=== PATIENT | female | born 1970 | race Caucasian/White ===

== ENCOUNTER 2023-12-24 20:43 | Inpatient (IN) | payer BC, SELFPAY ==
[2023-12-24 15:15] VITALS: BP 133/77
[2023-12-24 15:33] LABS: % Basophils 0.1 % (0-2); % Immature Granulocytes 2.1 % (0-0.5); % Lymphocytes 2.4 % (20.5-51.1); % Monocytes 2.8 % (1.7-9.3); % Neutrophils 92.6 % (42.2-75.2); Absolute Immature Granulocytes 0.5 10^3/uL (0-0.05); Absolute Lymphocytes 0.5 10^3/uL (1.2-3.4); Absolute Monocytes 0.6 10^3/uL (0.1-0.6); Absolute Neutrophils 19.6 10^3/uL (1.4-6.5); Hematocrit 34.6 % (37.0-47.0); Hemoglobin 11.5 g/dL (12.0-16.0); Mean Corp Hgb Conc. 33.2 g/dL (33.0-37.0); Mean Corpuscular Hgb 30.2 pg (27.0-31.0); Mean Corpuscular Volume 90.8 fL (81.0-99.0); Mean Platelet Volume 8.8 fL (7.4-10.4); Nucleated Red Blood Cells % 0 %; Platelet Count 290 10^3/uL (130-400); Red Blood Cell Count 3.81 10^6/uL (4.20-5.40); Red Cell Dist. Width 14.7 % (11.5-14.5); White Blood Cell Count 21.2 10^3/uL (4.8-10.8)
[2023-12-24 15:55] LABS: ALT (SGPT) 12 U/L (0-35); AST (SGOT) 13 U/L (14-36); Albumin 3.3 g/dl (3.5-5.0); Alkaline Phosphatase 118 U/L (38-126); Blood Urea Nitrogen 12 mg/dl (7-17); Calcium 9.2 mg/dl (8.4-10.2); Carbon Dioxide 31 mmol/L (22-30); Chloride 95 mmol/L (98-107); Glucose 123 mg/dl (70-99); Lipase < 10 U/L (23-300); Potassium 5.6 mmol/L (3.5-5.1); Sodium 134 mmol/L (135-145); Total Bilirubin 0.6 mg/dl (0.2-1.3); Total Protein 6.8 g/dl (6.3-8.2); eGFR > 60.00
[2023-12-24] MEDS: DILAUDID 0.5 MG IV ×3 (18:53→22:46)
[2023-12-24] MEDS: NSS 1000 IV ×2 (18:53→22:36)
[2023-12-24] MEDS: PROTONIX IV 40 MG IV (18:54)
[2023-12-24] MEDS: ZOFRAN 4 MG IV ×2 (18:54→22:47)
--- NOTE | 2023-12-24 19:12 | ED.GENMED ---
History of Present Illness
General
Chief Complaint: Abdominal Pain
Source: patient
Exam Limitations: none
Time Seen by Provider: 12/24/23 18:10
Nursing documentation reviewed up to this point in time: agreed with
Travel History
Have you had any contact with someone who has COVID-19?: No
Do you have any symptoms of coronavirus? Fever > 100 degrees, chills, cough, shortness of breath, sore throat, loss of taste or smell, muscle aches, or headache?: No
History of Present Illness
History of Present Illness:
Patient started on Augmentin 3 days ago for presumed recurrent diverticulitis by her GI physician, presents ED secondary to worsening pain over the past 24 hours, along with nausea and decreased appetite. Denies fever. Denies chills. Abdominal
pain described as sharp, left-sided, without any alleviating or exacerbating factors. Patient states that she has had number of similar symptoms in the past, and has been treated for diverticulitis with antibiotics. Of note, patient was discharged
from hospital in [place] 2 weeks ago, during which time she was treated for 'pulmonary infection'. Patient received both antibiotics and antifungal medication during hospitalization. Patient reports loose/mucousy bowel movement today.
Review of Systems
Review of Systems
Allergies reviewed?: Yes
All Other Systems: ROS reviewed and negative except as documented in HPI and ROS
Constitutional: Reports no symptoms; Denies fever
ABD/GI: Reports abdominal pain and nausea; Denies vomiting
Musculoskeletal: Reports no symptoms
Skin: Reports no symptoms
Neurological: Reports no symptoms
Phy Exam
Physical Exam
Physical Exam:
Physical Exam
General: mild painful distress, not acutely ill. afebrile
Head: nc/at. eomi
Neck: supple. no meningeal signs.
Heart: s1/s2 regular rate and rhythm, no murmur. equal radial pulses.
Lungs: no acute respiratory distress. clear bilaterally
Abdomen: normal bowel sounds. mild left sided tenderness, LUQ>LLQ, without rebound/guarding. no distention
Neuro: alert and oriented. no focal neurological deficits
Skin: no rash
Psychiatric: well kept. interactive and cooperative
Extremities: no edema. no calf tenderness.
Course
Orders/Labs/Results
Orders:
Orders
12/24/23 Dinner
NPO
Allow oral meds: Yes
Allow clear liquids: No
NPO with Ice Chips: No
12/24/23 15:27
CMP [Comprehensive Metabolic Panel] Urgent
Complete Blood Count/With Diff Urgent
Lipase Urgent
12/24/23 18:19
STOOL [C difficile Antigen & Toxins] Urgent
CLAIRE Source: Feces/Stool
Specimen Description:
Date Specimen was Collected: 12/24/23
Time Specimen was Collected: 18:28
Stool Culture Urgent
CLAIRE Source: Feces/Stool
Specimen Description:
Date Specimen was Collected: 12/24/23
Time Specimen was Collected: 18:28
12/24/23 18:20
0.9% Sodium Chloride 1000 ml [Nss] 1,000 ml IV BOLUS
HYDROmorphone [Dilaudid] 0.5 mg IV NOW STA
Ondansetron Injectable [Zofran] 4 mg IV NOW STA
Pantoprazole [Protonix IV] 40 mg IV NOW STA
12/24/23 18:21
CT Abd/pelvis W Iv Cont Urgent
Comment:
Reason For Exam: LLQ pain, recent abx tx
12/24/23 19:17
LevoFLOXacin 500 MG/100 ML [Levaquin] 500 mg in 100 ml IV NOW
12/24/23 19:18
MetroNIDAZOLE 500 MG/100 ML [Flagyl 500 mg] 100 ml IV NOW
12/24/23 19:24
HYDROmorphone [Dilaudid] 0.5 mg IV NOW STA
12/24/23 20:09
SURGICAL CONSULT Routine
Consulting Provider: Jose Rosenthal
Was physician already notified: Yes
Reason for consult: sigmoid diverticulitis with large abscess
12/24/23 20:10
Admit/Transfer Patient As Directed
Co-Sign Provider:
Level of Care: Inpatient admission
Assign to:: Medical/Surgical
Physician / Group: tracy newberry
Diagnosis: sigmoid diverticulitis with abcess, chronic aspergillus lung infection
Reason for Hospitalization: sigmoid diverticulitis with abcess, chronic aspergillus lung infection
Expected length of stay greater than two midnights?: Yes
ELOS- Estimated Length of Stay in days: 4
I certify the patient meets the requirements for IP care: Yes
Code Status As Directed
Resuscitation Status: Full Code
12/24/23 20:15
EKG [Electrocardiogram (*1)] Urgent
Reason for Study: QTc Monitoring
12/24/23 20:25
Consult Interventional Radiology [IRAD CONSULT] Routine
Consulting Provider: Reji Cabrera
Was physician already notified: Yes
Reason for Consult/Procedure: sig divertic abcsess large
Acknowledgement that appropriate orders are entered: Yes
12/24/23 21:08
0.9% Sodium Chloride 1000 ml [Nss] 1,000 ml IV 100 mls/hr
Albuterol [ProAIR HFA INHALER] 2 puff INH R Q4HPRN PRN
Benzonatate [Tessalon Perles] 100 mg PO TIDPRN PRN
HYDROmorphone [Dilaudid] 0.5 mg IV Q3HPRN PRN
HYDROmorphone [Dilaudid] 1 mg IV Q4HPRN PRN
Ondansetron Injectable [Zofran] 4 mg IV Q6HPRN PRN
12/24/23 21:08
Activity As Directed
Activity Level: As Tolerated
Intake/ Output As Directed
Frequency: Per unit guidelines
Vital Signs As Directed
Frequency: Per unit guidelines
Ot Eval And Treat Routine
Pt Eval And Treat Routine
Activity Level: As Tolerated
DX Deep Vein Thrombosis Video Routine
12/24/23 22:00
MetroNIDAZOLE 500 MG/100 ML [Flagyl 500 mg] 100 ml IV Q8H
Piperacillin/Tazo 3.375 Gram [Zosyn] 3.375 gram in 50 ml IV Q6H
Trazodone [Desyrel] 200 mg PO HS
Voriconazole [Vfend] 200 mg PO Q12H
12/25/23 06:00
EKG [Electrocardiogram (*1)] IN AM
Reason for Study: QTc Monitoring
Complete Blood Count/With Diff IN AM
Comprehensive Metabolic Panel IN AM
12/25/23 08:00
Aspirin Low Dose EC [Aspir Low (Enteric Coated)] 81 mg PO DAILY
Budesonide/Formoterol 160/4.5 [Symbicort 160/4.5 Mcg Inhaler] 2 puff INH R BID
Cholecalciferol (Vitamin D3) [VITAMIN D3 (cholecalciferol)] 25 mcg PO DAILY
Fluoxetine HCl [Prozac] 40 mg PO DAILY
Ipratropium/Albuterol Sulfate [Duoneb] 3 ml INH R TID
Pantoprazole [Protonix IV] 40 mg IV DAILY
Quetiapine Fumarate [Seroquel] 50 mg PO BID
12/25/23 18:00
Enoxaparin Sodium [Lovenox] 40 mg SC QPM
Montelukast Sodium [Singulair] 10 mg PO QPM
12/26/23 06:00
Complete Blood Count/With Diff IN AM
Comprehensive Metabolic Panel IN AM
12/27/23 06:00
Complete Blood Count/With Diff IN AM
Comprehensive Metabolic Panel IN AM
12/28/23 06:00
Complete Blood Count/With Diff IN AM
Comprehensive Metabolic Panel IN AM
Abnormal Lab Results
12/24/23
15:27
WBC 21.2 H 10^3/uL
(4.8-10.8)
RBC 3.81 L 10^6/uL
(4.20-5.40)
Hgb 11.5 L g/dL
(12.0-16.0)
Hct 34.6 L %
(37.0-47.0)
RDW 14.7 H %
(11.5-14.5)
Abs Immat Gran (auto) 0.5 H 10^3/uL
(0-0.05)
Absolute Neuts (auto) 19.6 H 10^3/uL
(1.4-6.5)
Absolute Lymphs (auto) 0.5 L 10^3/uL
(1.2-3.4)
Immature Gran % 2.1 H %
(0-0.5)
Neutrophils % 92.6 H %
(42.2-75.2)
Lymphocytes % 2.4 L %
(20.5-51.1)
Sodium 134 L mmol/L
(135-145)
Potassium 5.6 H mmol/L
(3.5-5.1)
Chloride 95 L mmol/L
(98-107)
Carbon Dioxide 31 H mmol/L
(22-30)
Creatinine 0.5 L mg/dL
(0.6-1.0)
Glucose 123 H mg/dl
(70-99)
AST 13 L U/L
(14-36)
Albumin 3.3 L g/dl
(3.5-5.0)
Lipase < 10 L U/L
(23-300)
12/24/23 15:27
12/24/23 15:27
Vital Signs
Initial and Last Documented VS:
Initial Vital Signs
Temp Pulse Resp BP Pulse Ox
98.6 F 79 16 133/77 100
12/24/23 15:15 12/24/23 15:15 12/24/23 15:15 12/24/23 15:15 12/24/23 15:15
Last Documented Vital Signs
Temp Pulse Resp BP Pulse Ox
97.9 F 60 18 140/68 98
12/24/23 21:17 12/24/23 21:17 12/24/23 21:17 12/24/23 21:17 12/24/23 21:17
MDM/Problems Addressed
MDM/Problems Addressed:
CT report reviewed.
Patient will be admitted for IV antibiotics.
Colorectal surgery, , notified via [facility] text.
*Critical Care Note
Total Time (30-74mins, 75-104mins- exclusive of procedures): Not Applicable
ED Attending Note
-
Portions of this chart may have been created with voice recognition software.� Occasional wrong word or��sound alike� substitutions may have occurred due to the inherent limitations of voice recognition software.
Discharge Plan
Departure
Patient Disposition: Admit
Date of Disposition: 12/24/23
Time of Disposition: 19:22
Presentation/result/management discussed w/ accepting MD/DO: Hospitalist
Discharge Problem:
Diverticulitis of intestine with abscess
Interventions
Interventions:
*Risk Screen - Suicide Last Done: 12/24/23 17:52
*General Assessment Last Done: 12/24/23 18:35
*Neglect/Abuse Screening Last Done: 12/24/23 17:52
ED- Fall Risk Assessment Last Done: 12/24/23 18:35
*ED COVID-19 Vaccine History Last Done: 12/24/23 17:52
*Nursing Disposition Last Done: 12/24/23 21:03
BS-Lutokc-Cnoqgayzql Assessment Last Done: 12/24/23 18:35
Discharge Date and Time
Discharge Date/Time: 12/24/23 21:04
--- NOTE | 2023-12-24 19:40 | HPS.HSE ---
Addendum entered and electronically signed by Quique Zamora DO 12/24/23 20:42:
Patient seen and examined independently. Agree with findings and plan as set forth by SILVIA Wu.
Patient is a 53y F with PMH significant for diverticular disease, aspergillosis and recent hospitalization for pneumonia (reportedly Pseudomonas) who presents to ED complaining of abdominal pain x several days. Patient reports that current
symptoms are similar to her prior episodes of diverticulitis - tough much more severe. She had here initial episode in 2020 and this resolved with antibiotics. Patient had an additional episode in October of this year which resolved with outpatient
antibiotics. Her current symptoms have been present for about 4 days and she has been taking Augmentin for the past 3 days with no significant improvement. She denies any N/V/D, fevers / chills, etc.
Ass:
Rectosigmoid Diverticulitis with Complicated Abscess
Hyperkalemia
Aspergillosis
Recent Pneumonia
QT Prolongation
GERD
Anxiety / Depression
Plan:
Admit for further evaluation and treatment.
Continue IV abx with Zosyn - especially given QT issues.
Colorectal Surgery evaluation.
IR consulted for eval in the AM for possible drain placement.
NPO, IVFs, pain control, etc.
Continue current meds for Aspergillosis.
EKG now for hyperkalemia / QT evaluation.
Avoid adding medications that prolong QT (multiple home meds already contribute to this).
Obtain recent records from [facility].
Follow for clinical improvement.
Original Note:
Family Physician
-
Family Physician: Iva Benton PA-C
Chief Complaint
-
Left lower quadrant abdominal pain
History of Present Illness
53-year-old female complaining of 5-day history of left lower quadrant abdominal pain with fever of 101 5 days ago. She reports she was visiting her mother today in [place] area when the pain in her left lower abdomen became severe. She also
reports decreased appetite with nausea. She has been on Augmentin for the past 3 days. She has history of diverticulosis with recent diverticulitis October 2023 treated with Augmentin at [facility] in [place] where she resides. She
was also treated this month at [address] [place] [address] for ongoing fungal lung infection Aspergillus since April 2023 was also treated for pulmonary bacterial infection with antibiotics unknown name and is on chronic antifungal medication. She
denies current fever, chills, chest pain, palpitations, shortness of breath, cough, vomiting, diarrhea, urinary symptoms
HX Diverticulosis/ diverticulitis October 20232020, history of fungal lung infection Aspergillus since April 2023 , HLD, anxiety/depression, GERD.
Medical History
Past Medical History
Past Medical History: Reports Other
Additional Past Medical History:
diverticulosis/diverticulitis october 20232020
history of fungal lung infection ( aspergillus since apr 2023 on current antifungal
HLD,
anxiety/depression
GERD
Past Surgical History: Reports Other
Additional Past Surgical History:
C5-C6 fusion
Ankle surgery
Social History
Tobacco: Non-smoker
Alcohol: None
Drug: None
Personal: Single
Living: Alone
Family History
Family History: Other (Mother and brother diverticulosis)
Allergies / Home Medications
Allergies reflects when Allergies were last updated in [employer].
Home Medications with original date entered in [employer]
Allergy/Medication List:
Allergies
Allergy/AdvReac Type Severity Reaction Status Date / Time
No Known Allergies Allergy Unverified 12/24/23 15:13
Home Medications
acetaminophen 500 mg tablet 1,000 mg PO Q6H PRN mild pain/fever 12/24/23
albuterol sulfate 90 mcg/actuation aerosol inhaler 2 puff inhalation R Q4 PRN sob/wheezing 12/24/23
amoxicillin 875 mg-potassium clavulanate 125 mg tablet 1 tab PO Q12H 12/24/23
aspirin 81 mg tablet,delayed release 81 mg PO DAILY 12/24/23
benzonatate 100 mg capsule 100 mg PO TID PRN cough 12/24/23
cholecalciferol (vitamin D3) 25 mcg (1,000 unit) tablet (Vitamin D3) 25 mcg PO DAILY 12/24/23
fluoxetine 40 mg capsule (Prozac) 40 mg PO DAILY 12/24/23
fluticasone furoate 200 mcg-vilanterol 25 mcg/dose inhalation powder (Breo Ellipta) 1 inh inhalation R DAILY 12/24/23
ibuprofen 200 mg capsule 200 mg PO Q6H PRN mild pain/fever 12/24/23
ipratropium 0.5 mg-albuterol 3 mg (2.5 mg base)/3 mL nebulization soln 3 ml inhalation R TID 12/24/23
montelukast 10 mg tablet 10 mg PO QPM 12/24/23
pantoprazole 40 mg tablet,delayed release 40 mg PO DAILY 12/24/23
quetiapine 50 mg tablet (Seroquel) 50 mg PO BID 12/24/23
trazodone 100 mg tablet 200 mg PO HS 12/24/23
voriconazole 200 mg tablet 200 mg PO Q12H 12/24/23
Review of Systems
-
History Source: Patient
A 12 point ROS was completed and negative except as noted: Yes
Constitutional: Denies Fever or Chills
EENT: Denies Sore Throat or Runny Nose
Respiratory: Denies Cough or Trouble Breathing
Cardiac: Denies Chest Pain, Diaphoresis or Palpitations
Abdomen/GI: Reports Abdominal Pain (LLQ) and Nausea; Denies Vomiting, Diarrhea, Constipated, Bloody Stools or Black Stools
: Denies Dysuria, Frequency, Flank Pain, Incontinence, Difficulty Voiding or Urgency
Musculoskeletal: Denies Joint Pain or Edema
Skin: Denies Itching or Rash
Neurological: Denies Dizzy, Headache or Weakness
Endocrine: Reports No Symptoms
Hematologic/Lymphatic: Reports No Symptoms
Psych: Reports Calm
Physical Exam
Vital Signs
Vital Signs
Temp Pulse Resp BP Pulse Ox
98.6 F 79 16 133/77 100
12/24/23 15:15 12/24/23 15:15 12/24/23 15:15 12/24/23 15:15 12/24/23 15:15
Physical Exam
General: Conversant and Pain; No Fever or Chills
HEENT: NormoCephalic, Anicteric, Moist mucous membranes, PERRLA, [place] Conjunctivae and No Ptosis
Respiratory: Clear; No Wheezes, Rales or Rhonchi
Cardiac: S1/S2 and Regular Rhythm; No Murmur, Rub, Gallop or Peripheral Edema
GI: Soft, Non Distended, Normal Bowel Sounds, Tender (LLQ) and No Hepatosplenomegaly
Genito-urinary: Deferred by me
Musculoskeletal: No Clubbing, No Cyanosis and No Edema
Skin: Warm and Dry; No Rash
Neuro: AO x 3, No Motor Deficits, Nonfocal/grossly intact, Cranial Nerves Intact and No Sensory Deficits; No Slurred Speech, Facial Droop or Tremors
Psych: Calm
Laboratory Results
-
12/24/23 15:27
12/24/23 15:27
Laboratory Results
Total Bilirubin 0.6 mg/dl (0.2-1.3) 12/24/23 15:27
AST 13 U/L (14-36) L 12/24/23 15:27
ALT 12 U/L (0-35) 12/24/23 15:27
Alkaline Phosphatase 118 U/L (38-126) 12/24/23 15:27
Lipase < 10 U/L (23-300) L 12/24/23 15:27
Impression/Plan
-
Impression/plan:
Admit to MedSurg
#Sigmoid diverticulitis with abscess
#HX Diverticulosis/diverticulitis-recent diverticulitis October 2023 treated with Augmentin [facility] prior diverticulitis 2020
Course of Augmentin x3 days
WBC 21.2, afebrile, 133/77, HR 79
-Patient follows with outpatient GI and pharmacy [place] due for colonoscopy March 03
-Blood cultures x 2
-Consult colorectal Dr. Ariadna aguilar
-Consult interventional radiology
-N.p.o. except meds
-IV NSS
-IV Levaquin given in ER , we will continue IV Zosyn and IV Flagyl-will monitor QTc daily with EKG
-IV pain control with Dilaudid
-IV Protonix
-As needed Zofran
-Follow CBC, CMP
CT abdomen pelvis with IV contrast:
1. Severe sigmoid diverticulitis with large complex pericolonic abscess anterior to the rectosigmoid colon 9.7 x 9.3 x 6.3 cm
2. Probable chronic mild infectious/inflammatory bronchitis/bronchiolitis and lung bases
#Hyperkalemia
K 5.6, IV NSS
Check EKG, monitor QTc with EKG daily
#History of fungal lung infection Aspergillus since apr 2023
-Was treated this month for bacterial infection and ongoing fungal infection at [facility]
Continue voriconazole 200 mg p.o. every 12 hours
#HLD
-No current meds
#GERD
-Change p.o. Protonix to IV Protonix
#Anxiety/depression
-Continue Seroquel 50 mg twice daily, trazodone 200 mg at bedtime, Prozac 40 mg daily
DVT prophylaxis
Sq lovenox
Full code
[2023-12-24 20:00] VITALS: BMI 28.7
[2023-12-24] MEDS: LEVAQUIN 100 IV (20:02)
[2023-12-24 21:17] VITALS: BP 140/68; BMI 27.8
--- NOTE | 2023-12-24 21:30 | PTCARENOTE ---
Pt transferred from ED. Pt ambulated into room with assistance. Pt on 4L, VSS. Pt oriented to unit, call richard within reach. Will continue with current plan.
[2023-12-24] MEDS: DESYREL 200 MG PO (22:36)
[2023-12-24] MEDS: SEROQUEL 50 MG PO (22:36)
[2023-12-24] MEDS: VFEND 200 MG PO (22:37)
[2023-12-24] MEDS: MELATONIN 3 MG PO (22:37)
[2023-12-24] MEDS: ZOSYN 50 IV (22:37)
[2023-12-24 23:42] VITALS: BP 124/56
[2023-12-25] MEDS: FLAGYL 500 MG 100 IV ×2 (00:44→05:44)
[2023-12-25] MEDS: ZOSYN 50 IV ×4 (03:28→22:04)
[2023-12-25] MEDS: DILAUDID 1 MG IV ×5 (03:33→20:25)
[2023-12-25 05:05] LABS: % Basophils 0.1 % (0-2); % Eosinophils 0.5 % (0-6); % Immature Granulocytes 0.7 % (0-0.5); % Lymphocytes 12.6 % (20.5-51.1); % Neutrophils 79.1 % (42.2-75.2); Absolute Eosinophils 0.1 10^3/uL (0-0.7); Absolute Immature Granulocytes 0.1 10^3/uL (0-0.05); Absolute Lymphocytes 1.7 10^3/uL (1.2-3.4); Absolute Monocytes 0.9 10^3/uL (0.1-0.6); Absolute Neutrophils 10.7 10^3/uL (1.4-6.5); Hematocrit 30.3 % (37.0-47.0); Hemoglobin 9.9 g/dL (12.0-16.0); Mean Corp Hgb Conc. 32.7 g/dL (33.0-37.0); Mean Corpuscular Hgb 29.9 pg (27.0-31.0); Mean Corpuscular Volume 91.5 fL (81.0-99.0); Mean Platelet Volume 8.7 fL (7.4-10.4); Nucleated Red Blood Cells % 0 %; Platelet Count 250 10^3/uL (130-400); Red Blood Cell Count 3.31 10^6/uL (4.20-5.40); Red Cell Dist. Width 14.9 % (11.5-14.5); White Blood Cell Count 13.5 10^3/uL (4.8-10.8)
[2023-12-25 05:24] LABS: ALT (SGPT) < 10 U/L (0-35); AST (SGOT) 12 U/L (14-36); Albumin 2.5 g/dl (3.5-5.0); Alkaline Phosphatase 90 U/L (38-126); Blood Urea Nitrogen 11 mg/dl (7-17); Calcium 8.6 mg/dl (8.4-10.2); Carbon Dioxide 33 mmol/L (22-30); Chloride 102 mmol/L (98-107); Estimated Creatinine Clearance 109 ml/min; Glucose 85 mg/dl (70-99); Potassium 5.5 mmol/L (3.5-5.1); Sodium 138 mmol/L (135-145); Total Bilirubin 0.6 mg/dl (0.2-1.3); Total Protein 5.5 g/dl (6.3-8.2); eGFR > 60.00
[2023-12-25] MEDS: DUONEB 3 ML INH ×3 (07:39→20:38)
[2023-12-25] MEDS: SYMBICORT 160/4.5 MCG INHALER 2 PUFF INH (07:39)
[2023-12-25 07:41] VITALS: BP 125/56
[2023-12-25] MEDS: PROZAC 40 MG PO (08:03)
[2023-12-25] MEDS: ASPIR LOW (ENTERIC COATED) 81 MG PO (08:03)
[2023-12-25] MEDS: PROTONIX IV 40 MG IV (08:04)
[2023-12-25] MEDS: VITAMIN D3 (cholecalciferol) 25 MCG PO (08:04)
[2023-12-25] MEDS: SEROQUEL 50 MG PO ×2 (08:04→19:40)
[2023-12-25] MEDS: NSS (PRESERVATIVE FREE) 10 ML IV (08:05)
[2023-12-25] MEDS: VFEND 200 MG PO ×2 (10:27→22:04)
--- NOTE | 2023-12-25 10:39 | CON.CRS ---
Consultation
-
Date/Time Consultation Requested: 12/24/2023, 20:09
Date/Time Consultation Performed: 12/25/2023, 08:20
Requesting Provider: Melody Boles
Performing Provider: Jose Rosenthal MD
Reason for Consultation: diverticulitis with abscess
Medical History
-
Chief Complaint: abdominal pain
History of Present Illness:
53 yo female, with a PMH of diverticulitis and aspergillus pneumonia, presents [place] [facility] complaining of LLQ and suprapubic abdominal pain for the past week. The patient states she had diverticulitis 'a couple times' in the past and had been
given oral antibiotics. She had never had an abscess. Her last attack was in October 2023. Last week she states she had new onset abdominal pain and called her PCP. She was prescribed Augmentin and put herself on clear liquids. She took antibiotics
for a total of four days prior to her ER admission. She states her pain is currently in the LLQ and occasional radiates to her back. Associated with this is nausea, lack of appetite, and fevers. She is currently on a prednisone taper due to a
bacterial lung infection while being treated for her fungal lung infection. She denies previous abdominal surgeries. Her last colonoscopy was at [facility] by Dr. Norma To which showed diverticulosis and polyps. Her brother had a
sigmoidectomy due to diverticulitis.
CT A/P shows severe sigmoid diverticulitis with a large complex pericolonic abscess anterior to the rectosigmoid colon measures up to 9.7 x 9.3 x 6.3 cm. On admission her WBC was 21.2 and now down to 13.5. She has remained afebrile. She was started
on IV antibiotics. We have been consulted for further surgical opinion.
Past Medical History
Past Medical History: GERD, Psychiatric (anxiety/depression) and Other (diverticulitis october 2023, 2020, aspergillus pneumonia since apr 2023 - on current antifungal and prednisone (treated at [facility]), HLD)
Past Surgical History: Other (C5-C6 fusion, Ankle surgery)
Social History
Tobacco: Non-Smoker
Alcohol: None
Drug: None
Living: Alone
Family History
Family History: Other (brother had sigmoidectomy due to diverticulitis)
Allergies / Home Medications
Allergy/AdvReac Type Severity Reaction Status Date / Time
No Known Allergies Allergy Unverified 12/24/23 15:13
�Medication �Instructions �Recorded �Confirmed �Type
acetaminophen 500 mg tablet 1,000 mg PO Q6H PRN mild pain/fever 12/24/23 12/24/23 History
albuterol sulfate 90 mcg/actuation 2 puff inhalation R Q4 PRN 12/24/23 12/24/23 History
aerosol inhaler sob/wheezing
amoxicillin 875 mg-potassium 1 tab PO Q12H 12/24/23 12/24/23 History
clavulanate 125 mg tablet
aspirin 81 mg tablet,delayed 81 mg PO DAILY 12/24/23 12/24/23 History
release
benzonatate 100 mg capsule 100 mg PO TID PRN cough 12/24/23 12/24/23 History
cholecalciferol (vitamin D3) 25 25 mcg PO DAILY 12/24/23 12/24/23 History
mcg (1,000 unit) tablet (Vitamin
D3)
fluoxetine 40 mg capsule (Prozac) 40 mg PO DAILY 12/24/23 12/24/23 History
fluticasone furoate 200 1 inh inhalation R DAILY 12/24/23 12/24/23 History
mcg-vilanterol 25 mcg/dose
inhalation powder (Breo Ellipta)
ibuprofen 200 mg capsule 200 mg PO Q6H PRN mild pain/fever 12/24/23 12/24/23 History
ipratropium 0.5 mg-albuterol 3 mg 3 ml inhalation R TID 12/24/23 12/24/23 History
(2.5 mg base)/3 mL nebulization
soln
melatonin 3 mg tablet 3 mg PO HS PRN sleep 12/24/23 12/24/23 History
montelukast 10 mg tablet 10 mg PO QPM 12/24/23 12/24/23 History
pantoprazole 40 mg tablet,delayed 40 mg PO DAILY 12/24/23 12/24/23 History
release
quetiapine 50 mg tablet (Seroquel) 50 mg PO BID 12/24/23 12/24/23 History
trazodone 100 mg tablet 200 mg PO HS 12/24/23 12/24/23 History
voriconazole 200 mg tablet 200 mg PO Q12H 12/24/23 12/24/23 History
Review of Systems
-
History Source: Patient
All other systems: Negative unless noted
Constitutional: Fever
Abdomen/GI: Abdominal Pain, Nausea and Anorexia
A 10 point review of systems was completed, and was negative except as per HPI.
Physical Exam
Vital Signs
Temp 97.9 F 12/25/23 07:41
Pulse 64 12/25/23 07:42
Resp Rate 14 12/25/23 07:42
Blood pressure 125/56 12/25/23 07:41
SaO2 98 12/25/23 07:42
12/24/23 12/25/23 12/26/23
06:59 06:59 06:59
Actual Weight 82.809 kg
Body Mass Index (BMI) 27.8
Lab Results / Allergies
12/25/23 04:30
12/25/23 04:30
WBC 13.5 10^3/uL (4.8-10.8) H 12/25/23 04:30
Hgb 9.9 g/dL (12.0-16.0) L 12/25/23 04:30
Hct 30.3 % (37.0-47.0) L 12/25/23 04:30
Plt Count 250 10^3/uL (130-400) 12/25/23 04:30
Abs Immat Gran (auto) 0.1 10^3/uL (0-0.05) H 12/25/23 04:30
Neutrophils % 79.1 % (42.2-75.2) H 12/25/23 04:30
Allergy/AdvReac Type Severity Reaction Status Date / Time
No Known Allergies Allergy Unverified 12/24/23 15:13
Physical Exam
General: Well Developed and Well Nourished
GI: Soft, Non Distended and Tender (LLQ/suprapubic - mild)
Skin: Warm and Dry
Neuro: AO x 3
Assessment / Plan
-
Assessment: 53yo female with a prior history of diverticulitis, most recent October 2023, and aspergillus pneumonia presents with abdominal pain for the past several days, found to have severe sigmoid diverticulitis and a large complex pericolonic
abscess anterior to the rectosigmoid colon measures up to 9.7 x 9.3 x 6.3 cm
Plan:
1. No plans for surgery at this time. If she worsens, she will require a colectomy with colostomy creation.
2. IR consulted for drain placement into abscess.
3. Okay to advance to clear liquids once drain in place.
4. Will obtain [facility] records.
5. Will need an eventual scope (due February 2024).
6. Eventual robotic sigmoidectomy. Will discuss this in an outpatient basis once her current issue resolves. She will follow up with Dr. Rosenthal as an outpatient.
7. Recommend tapering steroids as aggressively as possible, given abscess.
8. will follow.
--- NOTE | 2023-12-25 11:58 | W.PN.HOSP.TC ---
Today's Communication/Plan
-
IR for abscess drain
add inhaled pulmicort
Assessment / Plan
Assessment / Plan
pt is a 53 year old female
Sigmoid diverticulitis with abscess--HX Diverticulosis/diverticulitis--recent diverticulitis October 2023 treated with Augmentin @ [facility] prior diverticulitis 2020--Course of Augmentin x3 days --WBC improved--cont zosyn--apprec CRS
and IR for abscess drainage--clears post procedure--IV pain control with Dilaudid--IV Protonix--As needed Zofran--Follow CBC, CMP
History of fungal lung infection Aspergillus since apr 2023---Was treated this month for bacterial infection and ongoing fungal infection at [facility]--zosyn will cover most bacterial issues--cont voriconazole--stop oral steroids and
change to inhaled pulmicort
Hyperkalemia--K 5.6, IV NSS
HLD--No current meds
GERD--Change p.o. Protonix to IV Protonix
Anxiety/depression--Continue Seroquel 50 mg twice daily, trazodone 200 mg at bedtime, Prozac 40 mg daily
DVT prophylaxis--Sq lovenox
Full code
Anticipated Discharge: > 48 hours
Subjective/Interval History
-
Date of Service: December 25, 2023
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
Objective Data
-
Labs:
Laboratory Results
12/25/23
04:30
WBC 13.5 H
Hgb 9.9 L
Hct 30.3 L
Plt Count 250
Sodium 138
Potassium 5.5 H
Chloride 102
Carbon Dioxide 33 H
BUN 11
Creatinine 0.6
Glucose 85
Calcium 8.6
Total Bilirubin 0.6
AST 12 L
ALT < 10
Alkaline Phosphatase 90
Vital Signs:
max temp for 24 hours
12/24/23
23:42
Temp 98.4 F
Vital Signs
Temp Pulse Resp BP Pulse Ox
97.9 F 64 14 125/56 98
12/25/23 07:41 12/25/23 07:42 12/25/23 07:42 12/25/23 07:41 12/25/23 07:42
I&O
12/24/23 12/25/23 12/26/23
06:59 06:59 06:59
Intake Total 800 / 800
Balance 800 / 800
Review of Systems
-
All other systems: Reviewed and negative
Physical Exam
-
General: Well Developed, Well Nourished and No Apparent Distress
HEENT: Normocephalic, Atraumatic and Oxygen
Respiratory: Rhonchi (bilateral lung park--worse at bases)
Cardiac: Regular Rhythm and S1/S2; Negative Murmur
GI: Soft, Nontender, Nondistended and Normal Bowel Sounds
Musculoskeletal: No Clubbing, No Cyanosis and No Edema
Skin: Warm
Neuro: Awake
[2023-12-25] MEDS: PULMICORT 0.5 MG INH ×2 (13:21→20:38)
[2023-12-25 13:41] VITALS: BP 121/49; O2SAT 98
[2023-12-25] MEDS: NSS 1000 IV (14:54)
[2023-12-25 15:00] VITALS: BP 118/52
[2023-12-25 16:30] VITALS: BP 113/50; BP_SYST 66
[2023-12-25 17:49] VITALS: BP 112/50
[2023-12-25] MEDS: LOVENOX 40 MG SC (18:32)
[2023-12-25] MEDS: SINGULAIR 10 MG PO (18:32)
[2023-12-25] MEDS: DESYREL 200 MG PO (22:04)
[2023-12-25 23:00] VITALS: BP 116/49
[2023-12-26] MEDS: TYLENOL 1000 MG PO (00:10)
[2023-12-26] MEDS: ZOSYN 50 IV ×4 (03:44→21:17)
[2023-12-26] MEDS: NSS 1000 IV ×2 (03:47→15:44)
[2023-12-26] MEDS: DILAUDID 1 MG IV ×5 (03:53→21:17)
[2023-12-26] MEDS: NSS IV (04:11)
[2023-12-26 05:37] LABS: % Basophils 0.2 % (0-2); % Eosinophils 0.9 % (0-6); % Immature Granulocytes 0.5 % (0-0.5); % Lymphocytes 13.5 % (20.5-51.1); % Monocytes 6.8 % (1.7-9.3); % Neutrophils 78.1 % (42.2-75.2); Absolute Eosinophils 0.1 10^3/uL (0-0.7); Absolute Immature Granulocytes 0.1 10^3/uL (0-0.05); Absolute Lymphocytes 1.9 10^3/uL (1.2-3.4); Absolute Neutrophils 11.2 10^3/uL (1.4-6.5); Hematocrit 29.5 % (37.0-47.0); Hemoglobin 9.3 g/dL (12.0-16.0); Mean Corp Hgb Conc. 31.5 g/dL (33.0-37.0); Mean Corpuscular Hgb 29.4 pg (27.0-31.0); Mean Corpuscular Volume 93.4 fL (81.0-99.0); Nucleated Red Blood Cells % 0 %; Platelet Count 241 10^3/uL (130-400); Red Blood Cell Count 3.16 10^6/uL (4.20-5.40); White Blood Cell Count 14.3 10^3/uL (4.8-10.8)
[2023-12-26 06:02] LABS: ALT (SGPT) < 10 U/L (0-35); AST (SGOT) 13 U/L (14-36); Albumin 2.5 g/dl (3.5-5.0); Alkaline Phosphatase 84 U/L (38-126); Blood Urea Nitrogen 11 mg/dl (7-17); Calcium 8.5 mg/dl (8.4-10.2); Carbon Dioxide 31 mmol/L (22-30); Chloride 99 mmol/L (98-107); Estimated Creatinine Clearance 94 ml/min; Glucose 85 mg/dl (70-99); Sodium 135 mmol/L (135-145); Total Bilirubin 0.7 mg/dl (0.2-1.3); Total Protein 5.4 g/dl (6.3-8.2); eGFR > 60.00
[2023-12-26 07:30] VITALS: BP 127/60
[2023-12-26] MEDS: ZOFRAN 4 MG IV (07:30)
[2023-12-26] MEDS: SEROQUEL 50 MG PO ×2 (07:31→19:27)
[2023-12-26] MEDS: VITAMIN D3 (cholecalciferol) 25 MCG PO (07:31)
[2023-12-26] MEDS: NSS (PRESERVATIVE FREE) 10 ML IV (07:31)
[2023-12-26] MEDS: PROZAC 40 MG PO (07:31)
[2023-12-26] MEDS: PROTONIX IV 40 MG IV (07:31)
[2023-12-26] MEDS: ASPIR LOW (ENTERIC COATED) 81 MG PO (07:31)
[2023-12-26] MEDS: PULMICORT 0.5 MG INH ×2 (08:19→15:41)
[2023-12-26] MEDS: DUONEB 3 ML INH ×3 (08:19→15:40)
[2023-12-26] MEDS: TYLENOL 650 MG PO (08:29)
[2023-12-26 09:29] VITALS: BP 117/55; BP 121/61; PULSE 78; O2SAT 95
[2023-12-26] MEDS: VFEND 200 MG PO ×2 (10:06→21:15)
--- NOTE | 2023-12-26 11:14 | W.PN.GS2 ---
Addendum entered and electronically signed by Ricardo Sawant MD 12/26/23 13:45:
Patient seen and examined with nurse practitioner earlier today.
Still feeling lousy. Underwent IR drainage yesterday. Nausea with small amount of emesis in the early a.m. but did not return since at time of my last evaluation.
Continued abdominal pain but states that it remains localized to the suprapubic and left lower quadrant
Tmax 101.7 normotensive, no tachycardia
White blood cell count a bit more elevated today at 14.3; electrolytes stable including BUN and creatinine. No acidosis.
NAD but appears uncomfortable and acutely ill
Abdomen: Protuberant but soft, tenderness palpation with localized guarding in the left lower quadrant. There is no guarding or rigidity or rebound in the upper abdomen.
IR drain in place with purulent fluid not feculent.
Assessment/plan: 53-year-old female with sigmoid diverticulitis complicated by large pelvic abscess now status post IR drainage 24 hours ago
Continues with localized peritonitis but not generalized
Fevers and slightly worse leukocytosis may be due to recent instrumentation/drain placement but have to continue to monitor quite closely.
Still uncertainty whether she will adequately respond to IR drainage
Reduce diet to n.p.o. except sips for comfort as she is exhibiting signs of ileus as well
Continue Zosyn
IV fluid hydration
IR drain
Repeat labs tomorrow a.m.
Original Note:
Today's Communication / Plan
-
NPO except sips of clears
Continue IR drain/abx
Assessment / Plan
-
53 yo female with aspergillus pneumonia on O2 and on steroids presenting with complicated diverticulitis with abscess
PPD #1 IR drainage
VSS, Febrile overnight to 101.7
Leukocytosis present, slight uptrend post procedure but not as high as on presentation
Pain/nausea persist, passing flatus
--NPO with sips of clears
--Analgesics/antiemetics
--Continue antibiotics
--Continue IR drain, cx pending
--No plans for immediate operative intervention at this time, will continue to follow with drain, bowel rest, supportive care and antibiotics for improvement.
Subjective Data
-
Date of Service: December 26, 2023
Patient seen and examined at bedside with Dr. Sawant. Nausea with vomiting this am, better after antiemetics. Still very uncomfortable with LLQ pain, but notes not worse from previous. Voiding without difficulty.
Objective Data
-
Intake and Output
12/25/23 12/26/23 12/27/23
06:59 06:59 06:59
Intake Total 800 / 800 2280 / 2280 780 / 780
Output Total 90 / 90
Balance 800 / 800 2190 / 2190 780 / 780
Intake:
Oral fluids 0 / 0 1080 / 1080 780 / 780
IV fluids (Total) 500 / 500 1000 / 1000
IV piggybacks 300 / 300 200 / 200
Output:
Drain Output (Total) 90 / 90
Left Lower Sacrum Cole-Olmos 90 / 90
A Placed in IR
Other:
Number of approximated SMALL 1
amounts of urine
Number of approximated MODERATE 1 3 2
amounts of urine
Vital Signs
Temp Pulse Resp BP Pulse Ox
102.1 F H 76 18 127/60 93
12/26/23 07:30 12/26/23 08:25 12/26/23 08:25 12/26/23 07:30 12/26/23 08:25
Lab Results
12/26/23 05:03
12/26/23 05:03
Calcium 8.5 mg/dl (8.4-10.2) 12/26/23 05:03
Magnesium 2.0 mg/dl (1.6-2.3) 12/26/23 05:03
Total Bilirubin 0.7 mg/dl (0.2-1.3) 12/26/23 05:03
AST 13 U/L (14-36) L 12/26/23 05:03
ALT < 10 U/L (0-35) 12/26/23 05:03
Alkaline Phosphatase 84 U/L (38-126) 12/26/23 05:03
Total Protein 5.4 g/dl (6.3-8.2) L 12/26/23 05:03
Albumin 2.5 g/dl (3.5-5.0) L 12/26/23 05:03
Physical Exam
-
Uncomfortable appearing
ABD soft, ND, tenderness to LLQ across lower abd
IR drain with cloudy ssf
--- NOTE | 2023-12-26 12:03 | PTCARENOTE ---
Patient taking O2 off to ambulate to bathroom. Pox noted to be in the low 80s with ambulation on RA. Extension tubing now in place. Patient educated that she must wear O2 at all times. Will monitor.
--- NOTE | 2023-12-26 12:29 | CM ---
Patient seen bedside.
IA completed.
Patient recently divorces, house is being sold.
Patient currently lives with Mom in a 2 story home with 1 step to enter.
Patient has home oxygen concentrator and Rac[facility] thru [facility].
Patient drives.
PCP: Dr Tracey Benton
Pharmacy: [facility]
Plan: home, possible VN.
--- NOTE | 2023-12-26 13:21 | W.PN.HOSP.TC ---
Today's Communication/Plan
-
cont zosyn
follow cultures
Assessment / Plan
Assessment / Plan
pt is a 53 year old female
Sigmoid diverticulitis with abscess--HX Diverticulosis/diverticulitis--recent diverticulitis October 2023 treated with Augmentin @ [facility] [place] prior diverticulitis 2020--(Had Course of Augmentin x3 days) --WBC improved--cont zosyn--apprec
CRS and IR for abscess drainage--clears post procedure--IV pain control with Dilaudid--IV Protonix--As needed Zofran--Follow CBC, CMP--wound culture with gm neg bacilli
History of fungal lung infection Aspergillus since apr 2023---Was treated this month for bacterial infection and ongoing fungal infection at [facility] [place]--zosyn will cover most bacterial issues--cont voriconazole--stop oral steroids and
change to inhaled pulmicort
Hyperkalemia--K 5.6, IV NSS
HLD--No current meds
GERD--Change p.o. Protonix to IV Protonix
Anxiety/depression--Continue Seroquel 50 mg twice daily, trazodone 200 mg at bedtime, Prozac 40 mg daily
DVT prophylaxis--Sq lovenox
Full code
Anticipated Discharge: > 48 hours
Subjective/Interval History
-
Date of Service: December 26, 2023
pt doing OK--still with fevers
Objective Data
-
Labs:
Laboratory Results
12/26/23
05:03
WBC 14.3 H
Hgb 9.3 L
Hct 29.5 L
Plt Count 241
Sodium 135
Potassium 5.0
Chloride 99
Carbon Dioxide 31 H
BUN 11
Creatinine 0.7
Glucose 85
Calcium 8.5
Total Bilirubin 0.7
AST 13 L
ALT < 10
Alkaline Phosphatase 84
Vital Signs:
max temp for 24 hours
12/26/23
07:30
Temp 102.1 F H
Vital Signs
Temp Pulse Resp BP Pulse Ox
102.1 F H 77 18 127/60 93
12/26/23 07:30 12/26/23 12:00 12/26/23 12:00 12/26/23 07:30 12/26/23 08:25
I&O
12/25/23 12/26/23 12/27/23
06:59 06:59 06:59
Intake Total 800 / 800 2280 / 2280 780 / 780
Output Total 90 / 90
Balance 800 / 800 2190 / 2190 780 / 780
Review of Systems
-
All other systems: Reviewed and negative
Physical Exam
-
General: Well Developed, Well Nourished and No Apparent Distress
HEENT: Normocephalic, Atraumatic and Oxygen
Respiratory: Rhonchi; Negative Clear to Auscultation or Wheezes
Cardiac: Regular Rhythm and S1/S2; Negative Murmur
GI: Soft, Nontender, Nondistended, Normal Bowel Sounds and Other (DAKOTA drain in place)
Musculoskeletal: No Clubbing, No Cyanosis and No Edema
Skin: Warm
Neuro: Awake
Psych: Calm
[2023-12-26 15:00] VITALS: BP 135/51
[2023-12-26] MEDS: SINGULAIR 10 MG PO (17:12)
[2023-12-26] MEDS: LOVENOX 40 MG SC (17:12)
[2023-12-26] MEDS: DESYREL 200 MG PO (21:15)
[2023-12-26] MEDS: TESSALON PERLES 100 MG PO (21:18)
[2023-12-26 23:00] VITALS: BP 119/54
[2023-12-27] MEDS: NSS 1000 IV ×2 (01:58→14:43)
[2023-12-27] MEDS: DILAUDID 1 MG IV ×4 (02:04→22:16)
[2023-12-27] MEDS: TYLENOL 650 MG PO ×2 (02:11→13:45)
[2023-12-27] MEDS: ZOFRAN 4 MG IV ×3 (02:13→22:23)
[2023-12-27] MEDS: ZOSYN 50 IV ×4 (05:45→22:12)
[2023-12-27 07:17] VITALS: BP 130/53
--- NOTE | 2023-12-27 08:02 | W.PN.GS2 ---
Today's Communication / Plan
-
`
Assessment / Plan
-
Assessment: 53 yo female with recent aspergillus pneumonia on O2 and on steroids presenting with complicated diverticulitis with large pelvic abscess
Status post IR drainage 12/25/2023
VSS, febrile yesterday a.m. 102 �F most recent temperature 100 �F
Abdominal examination stable, may be slightly improved still with localized peritoneal signs in the left lower quadrant suprapubic area.
Plan: Await a.m. labs which are still pending. -If leukocytosis continuing to significantly rise then will CT image today
-If WBC similar or improved continue current management but will need repeat CT imaging in another day or 2 to confirm adequacy of pelvic drainage.
--Maintain NPO with sips of clears
--Analgesics/antiemetics
--Continue Zosyn
--Continue IR drain, cx pending
--No plans for immediate operative intervention at this time, will continue to follow with drain, bowel rest, supportive care and antibiotics for improvement.
Subjective Data
-
Date of Service: December 27, 2023
Patient seen and examined.
Feels very similar to yesterday, possibly slight improvement but she does not think that she feels any worse.
Passing flatus on occasion. No bowel movements.
Anorexia
Mild nausea at times, no vomiting
Objective Data
-
Intake and Output
12/26/23 12/27/23 12/28/23
06:59 06:59 06:59
Intake Total 2280 / 2280 188 / 1880
Output Total
Balance 2190 / 2190 1855 / 1855
Intake:
Oral fluids 1080 / 1080 780 / 780
IV fluids (Total) 1000 / 1000 1000 / 1000
IV piggybacks 200 / 200 100 / 100
Output:
Drain Output (Total)
[facility] / 90
A Placed in IR
Other:
Number of approximated SMALL 1 1
amounts of urine
Number of approximated MODERATE 3 2
amounts of urine
Number of approximated LARGE 1
amounts of urine
Vital Signs
Temp Pulse Resp BP Pulse Ox
100.0 F 66 20 119/54 95
12/27/23 02:08 12/26/23 23:00 12/26/23 23:00 12/26/23 23:00 12/26/23 23:00
Calcium 8.5 mg/dl (8.4-10.2) 12/26/23 05:03
Magnesium 2.0 mg/dl (1.6-2.3) 12/26/23 05:03
Total Bilirubin 0.7 mg/dl (0.2-1.3) 12/26/23 05:03
AST 13 U/L (14-36) L 12/26/23 05:03
ALT < 10 U/L (0-35) 12/26/23 05:03
Alkaline Phosphatase 84 U/L (38-126) 12/26/23 05:03
Total Protein 5.4 g/dl (6.3-8.2) L 12/26/23 05:03
Albumin 2.5 g/dl (3.5-5.0) L 12/26/23 05:03
Physical Exam
-
Lying in hospital bed, resting. A bit uncomfortable appearing. NAD AAOx3
ABD: Soft, nondistended, generalized tenderness on palpation, localized rebound and guarding still left lower quadrant and suprapubic
IR drain just emptied -scant purulent fluid, not feculent or enteric
[2023-12-27] MEDS: DUONEB 3 ML INH ×3 (08:17→18:00)
[2023-12-27] MEDS: PULMICORT 0.5 MG INH ×2 (08:17→18:00)
[2023-12-27 08:32] VITALS: BMI 27.8
[2023-12-27] MEDS: ASPIR LOW (ENTERIC COATED) 81 MG PO (08:50)
[2023-12-27] MEDS: VITAMIN D3 (cholecalciferol) 25 MCG PO (08:50)
[2023-12-27] MEDS: NSS (PRESERVATIVE FREE) 10 ML IV (08:54)
[2023-12-27] MEDS: SEROQUEL 50 MG PO ×2 (08:54→22:10)
[2023-12-27] MEDS: PROTONIX IV 40 MG IV (08:54)
[2023-12-27] MEDS: PROZAC 40 MG PO (08:54)
[2023-12-27 09:14] LABS: % Basophils 0.2 % (0-2); % Eosinophils 1.6 % (0-6); % Immature Granulocytes 0.7 % (0-0.5); % Lymphocytes 13.8 % (20.5-51.1); % Monocytes 7.5 % (1.7-9.3); % Neutrophils 76.2 % (42.2-75.2); Absolute Eosinophils 0.2 10^3/uL (0-0.7); Absolute Immature Granulocytes 0.1 10^3/uL (0-0.05); Absolute Lymphocytes 1.6 10^3/uL (1.2-3.4); Absolute Monocytes 0.9 10^3/uL (0.1-0.6); Hemoglobin 9.4 g/dL (12.0-16.0); Mean Corp Hgb Conc. 31.3 g/dL (33.0-37.0); Mean Corpuscular Volume 95.8 fL (81.0-99.0); Mean Platelet Volume 8.8 fL (7.4-10.4); Nucleated Red Blood Cells % 0 %; Platelet Count 260 10^3/uL (130-400); Red Blood Cell Count 3.13 10^6/uL (4.20-5.40); Red Cell Dist. Width 14.8 % (11.5-14.5); White Blood Cell Count 11.8 10^3/uL (4.8-10.8)
[2023-12-27 09:32] LABS: ALT (SGPT) < 10 U/L (0-35); AST (SGOT) 14 U/L (14-36); Albumin 2.6 g/dl (3.5-5.0); Alkaline Phosphatase 92 U/L (38-126); Blood Urea Nitrogen 7 mg/dl (7-17); Calcium 8.5 mg/dl (8.4-10.2); Carbon Dioxide 34 mmol/L (22-30); Chloride 100 mmol/L (98-107); Estimated Creatinine Clearance 109 ml/min; Glucose 80 mg/dl (70-99); Magnesium 2.1 mg/dl (1.6-2.3); Potassium 4.9 mmol/L (3.5-5.1); Sodium 137 mmol/L (135-145); Total Bilirubin 0.6 mg/dl (0.2-1.3); Total Protein 5.6 g/dl (6.3-8.2); eGFR > 60.00
[2023-12-27] MEDS: VFEND 200 MG PO ×2 (10:15→22:11)
[2023-12-27] MEDS: NSS IV (10:15)
--- NOTE | 2023-12-27 11:53 | W.PN.HOSP.TC ---
Today's Communication/Plan
-
cont zosyn
rescan in 1-2 days per surgery
Assessment / Plan
Assessment / Plan
pt is a 53 year old female
Sigmoid diverticulitis with abscess--HX Diverticulosis/diverticulitis--recent diverticulitis October 2023 treated with Augmentin @ [facility] prior diverticulitis 2020--(Had Course of Augmentin x3 days)--cont zosyn--apprec CRS and IR for
abscess drainage--IV pain control with Dilaudid--IV Protonix--As needed Zofran--Follow CBC, CMP--wound culture with E. coli, WBC improved to 11K--likely rescan Thursday or Thursday
History of fungal lung infection Aspergillus since apr 2023---Was treated this month for bacterial infection and ongoing fungal infection at [facility]--zosyn will cover most bacterial issues--cont voriconazole--stop oral steroids and
change to inhaled pulmicort
Hyperkalemia--K 5.6, IV NSS
HLD--No current meds
GERD--Change p.o. Protonix to IV Protonix
Anxiety/depression--Continue Seroquel 50 mg twice daily, trazodone 200 mg at bedtime, Prozac 40 mg daily
DVT prophylaxis--Sq lovenox
Full code
Anticipated Discharge: > 48 hours
Subjective/Interval History
-
Date of Service: December 27, 2023
pt about the same
Objective Data
-
Labs:
Laboratory Results
12/27/23
08:55
WBC 11.8 H
Hgb 9.4 L
Hct 30.0 L
Plt Count 260
Sodium 137
Potassium 4.9
Chloride 100
Carbon Dioxide 34 H
BUN 7
Creatinine 0.5 L
Glucose 80
Calcium 8.5
Total Bilirubin 0.6
AST 14
ALT < 10
Alkaline Phosphatase 92
Vital Signs:
max temp for 24 hours
12/27/23
02:08
Temp 100.0 F
Vital Signs
Temp Pulse Resp BP Pulse Ox
98.4 F 60 16 130/53 98
12/27/23 07:17 12/27/23 08:22 12/27/23 08:22 12/27/23 07:17 12/27/23 08:22
I&O
12/26/23 12/27/23 12/28/23
06:59 06:59 06:59
Intake Total 2280 / 2280 188 / 1880
Output Total 90 / 90 /
Balance 2190 / 2190 1854 / 1854
Review of Systems
-
All other systems: Reviewed and negative
Abdomen/GI: Reports Abdominal Pain
Physical Exam
-
General: Well Developed, Well Nourished and Pain
HEENT: Normocephalic and Atraumatic
Respiratory: Clear to Auscultation; Negative Wheezes or Rhonchi
Cardiac: Regular Rhythm and S1/S2; Negative Murmur
GI: Soft, Nondistended, Normal Bowel Sounds and Tender
Musculoskeletal: No Clubbing, No Cyanosis and No Edema
Neuro: Awake
[2023-12-27 15:00] VITALS: BP 98/60
--- NOTE | 2023-12-27 15:30 | CM ---
Addendum entered by Ivon Acharya 12/27/23 15:37:
Patient seen bedside.
Patient with DAKOTA drain, oxygen, IV anbx.
PT recommending home with VN.
Original Note:
PT recommending home with VN
Patient chose [facility].
Patient will be staying at her mothers in [place].
Plan: home with [facility] when stable.
[2023-12-27] MEDS: LOVENOX 40 MG SC (17:30)
[2023-12-27] MEDS: SINGULAIR 10 MG PO (17:30)
[2023-12-27] MEDS: DESYREL 200 MG PO (22:10)
[2023-12-27 23:01] VITALS: BP 148/80
[2023-12-28] MEDS: ZOSYN 50 IV ×4 (04:09→21:21)
[2023-12-28] MEDS: DILAUDID 1 MG IV ×4 (04:09→23:38)
[2023-12-28] MEDS: NSS 1000 IV ×2 (06:45→18:18)
[2023-12-28 07:00] VITALS: BP 149/71
[2023-12-28 07:38] LABS: % Basophils 0.3 % (0-2); % Eosinophils 1.5 % (0-6); % Immature Granulocytes 0.7 % (0-0.5); % Lymphocytes 8.5 % (20.5-51.1); % Monocytes 6.7 % (1.7-9.3); % Neutrophils 82.3 % (42.2-75.2); Absolute Eosinophils 0.2 10^3/uL (0-0.7); Absolute Immature Granulocytes 0.1 10^3/uL (0-0.05); Absolute Monocytes 0.8 10^3/uL (0.1-0.6); Absolute Neutrophils 9.2 10^3/uL (1.4-6.5); Hematocrit 28.2 % (37.0-47.0); Hemoglobin 8.9 g/dL (12.0-16.0); Mean Corp Hgb Conc. 31.6 g/dL (33.0-37.0); Mean Corpuscular Hgb 30.1 pg (27.0-31.0); Mean Corpuscular Volume 95.3 fL (81.0-99.0); Mean Platelet Volume 8.6 fL (7.4-10.4); Nucleated Red Blood Cells % 0 %; Platelet Count 322 10^3/uL (130-400); Red Blood Cell Count 2.96 10^6/uL (4.20-5.40); Red Cell Dist. Width 14.9 % (11.5-14.5); White Blood Cell Count 11.2 10^3/uL (4.8-10.8)
[2023-12-28 08:04] LABS: ALT (SGPT) < 10 U/L (0-35); AST (SGOT) 14 U/L (14-36); Albumin 2.4 g/dl (3.5-5.0); Alkaline Phosphatase 88 U/L (38-126); Blood Urea Nitrogen 7 mg/dl (7-17); Calcium 8.3 mg/dl (8.4-10.2); Carbon Dioxide 33 mmol/L (22-30); Chloride 99 mmol/L (98-107); Estimated Creatinine Clearance 109 ml/min; Glucose 64 mg/dl (70-99); Magnesium 2.1 mg/dl (1.6-2.3); Potassium 4.4 mmol/L (3.5-5.1); Sodium 137 mmol/L (135-145); Total Bilirubin 0.4 mg/dl (0.2-1.3); Total Protein 5.4 g/dl (6.3-8.2); eGFR > 60.00
[2023-12-28] MEDS: SEROQUEL 50 MG PO ×2 (08:23→19:56)
[2023-12-28] MEDS: PROZAC 40 MG PO (08:23)
[2023-12-28] MEDS: VITAMIN D3 (cholecalciferol) 25 MCG PO (08:23)
[2023-12-28] MEDS: ASPIR LOW (ENTERIC COATED) 81 MG PO (08:23)
[2023-12-28] MEDS: NSS (PRESERVATIVE FREE) 10 ML IV (08:24)
[2023-12-28] MEDS: PROTONIX IV 40 MG IV (08:24)
[2023-12-28] MEDS: DUONEB 3 ML INH ×3 (08:33→20:22)
[2023-12-28] MEDS: PULMICORT 0.5 MG INH ×2 (08:33→20:22)
[2023-12-28] MEDS: VFEND 200 MG PO ×2 (09:03→21:58)
--- NOTE | 2023-12-28 10:19 | W.PN.CRS1 ---
Today's Communication / Plan
-
Okay for trial of clear liquids; low threshold to back down to sips if N/V
Hold off on CTAP as patient continues to improve
Continue IV antibiotics
Assessment/Plan
-
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
diverticulitis with abscess of 9.7 cm s/p IR guided transgluteal drainage and evacuation of 170 mL pus
Afebrile x24 hrs, WBC 11.2 from 11.8
�Continue nonoperative management; overall improving, but improvement has been slow; if any evidence of worsening, will repeat CTAP; otherwise, will hold off for now
�Will advance to clear liquids; if recurrent N/V, back down to n.p.o.; continue Zofran as needed
� Continue pain medication with Tylenol and Dilaudid as needed
� Continue DVT PPx with Lovenox
� Continue IR guided DAKOTA drain to bulb suction
� Continue IV antibiotics with Zosyn and voriconazole
�Continue home meds, okay for PO medications
� Care per hospitalist
Subjective Data
Subjective Data
Date of Service: December 28, 2023
No overnight events. Had some nausea overnight, but no vomits.
Still having some pain, but overall improved from first day of admission.
Not having much appetite.
+flatus -BMs +voiding
Pt is OOB.
Objective Data
-
Vital Signs
Temp Pulse Resp BP Pulse Ox
98.9 F 68 16 149/71 99
12/28/23 07:00 12/28/23 08:34 12/28/23 08:34 12/28/23 07:00 12/28/23 08:34
Intake & Output
12/27/23 12/28/2324
06:59 06:59 06:59
Intake Total 1879
Output Total
Balance 1854 -
Intake:
Oral fluids 780 / 780
IV fluids (Total) 1000 / 1000
IV piggybacks 100 / 100
Output:
Drain Output (Total)
Left Lower Sacrum Cole-Olmos
A Placed in IR
Other:
Number of approximated SMALL 1 1
amounts of urine
Number of approximated MODERATE 2 1
amounts of urine
Number of approximated LARGE 1
amounts of urine
Lab Results
12/28/23 06:58
12/28/23 06:58
Physical Exam
-
General: No Acute Distress and AOx3
HEENT: Grossly Normal
Abdomen: Soft, Non Distended, Tender (Mildly tender in the LLQ/SP region), No Guarding, No Rebound and Other (DAKOTA-20 mL light purulent output)
Skin: Warm and Dry
--- NOTE | 2023-12-28 11:13 | VNURNOTE ---
Home Health Liaison met with patient at 1030 to discuss [facility] nurse/therapy, visits, schedule and homebound status. Patient is agreeable and understands that visits at home will be 2-3 x per week to assess and teach medical management and DAKOTA drain
care.
[facility] contact information provided. Patient is aware that [facility] will contact her for start of care in 1-2 days after discharge from .
[facility] referral updated in [facility].
--- NOTE | 2023-12-28 12:26 | CM ---
Patient seen at bedside with physician. Patient with O2, DAKOTA drain and stated that her pain was 6/10. Patient for clear liquid per physician. Plan is for discharge home with [facility] when medically appropriate.CM will continue to follow for discharge
planning needs.
Plan;[facility] pending acceptance when medically appropriate
--- NOTE | 2023-12-28 12:33 | W.PN.HOSP.TC ---
Today's Communication/Plan
-
trial of clears today
consideration for rescan Thursday if doesn't tolerate clears
Assessment / Plan
Assessment / Plan
pt is a 53 year old female
Sigmoid diverticulitis with abscess--HX Diverticulosis/diverticulitis--recent diverticulitis October 2023 treated with Augmentin @ [facility] prior diverticulitis 2020--(Had Course of Augmentin x3 days)--cont zosyn--apprec CRS and IR for
abscess drainage--IV pain control with Dilaudid--IV Protonix--As needed Zofran--Follow CBC, CMP--wound culture with 2 E. coli, Strep species, Group F Strep--WBC improved to 11K--likely rescan Thursday or Thursday
History of fungal lung infection Aspergillus since Apr 2023---Was treated this month for bacterial infection and ongoing fungal infection at [facility]--zosyn will cover most bacterial issues--cont voriconazole--stop oral steroids and
change to inhaled Pulmicort
Hyperkalemia--K 5.6, IV NSS
HLD--No current meds
GERD--Change p.o. Protonix to IV Protonix
Anxiety/depression--Continue Seroquel 50 mg twice daily, trazodone 200 mg at bedtime, Prozac 40 mg daily
DVT prophylaxis--Sq lovenox
Full code
Anticipated Discharge: > 48 hours
Subjective/Interval History
-
Date of Service: December 28, 2023
pt sleepy (just got pain meds) --still has abdominal pain
Objective Data
-
Labs:
Laboratory Results
12/28/23
06:58
WBC 11.2 H
Hgb 8.9 L
Hct 28.2 L
Plt Count 322 D
Sodium 137
Potassium 4.4
Chloride 99
Carbon Dioxide 33 H
BUN 7
Creatinine 0.4 L
Glucose 64 L
Calcium 8.3 L
Total Bilirubin 0.4
AST 14
ALT < 10
Alkaline Phosphatase 88
Vital Signs:
max temp for 24 hours
12/27/23
23:01
Temp 99.4 F
Vital Signs
Temp Pulse Resp BP Pulse Ox
98.9 F 68 16 149/71 99
12/28/23 07:00 12/28/23 08:34 12/28/23 08:34 12/28/23 07:00 12/28/23 08:34
I&O
12/27/23 12/28/23 12/29/23
06:59 06:59 06:59
Intake Total 1879
Output Total
Balance 1854 / 1854 -
Review of Systems
-
All other systems: Reviewed and negative
Physical Exam
-
General: Well Developed, Well Nourished and No Apparent Distress
HEENT: Normocephalic and Atraumatic
Respiratory: Clear to Auscultation; Negative Wheezes or Rhonchi
Cardiac: Regular Rhythm and S1/S2; Negative Murmur
GI: Soft, Nontender, Nondistended and Normal Bowel Sounds
Musculoskeletal: No Clubbing, No Cyanosis and No Edema
Neuro: Awake and Alert
Psych: Calm
[2023-12-28 15:00] VITALS: BP 112/49
[2023-12-28] MEDS: LOVENOX 40 MG SC (17:33)
[2023-12-28] MEDS: SINGULAIR 10 MG PO (17:34)
[2023-12-28] MEDS: DILAUDID 0.5 MG IV (19:55)
[2023-12-28] MEDS: DESYREL 200 MG PO (21:21)
[2023-12-28] MEDS: TYLENOL 650 MG PO (21:58)
[2023-12-28 23:19] VITALS: BP 117/55
[2023-12-29] MEDS: NSS 1000 IV ×2 (05:11→17:18)
[2023-12-29] MEDS: ZOSYN 50 IV ×4 (05:11→21:03)
[2023-12-29] MEDS: DILAUDID 1 MG IV ×3 (06:07→17:09)
[2023-12-29 06:23] LABS: Hematocrit 27.4 % (37.0-47.0); Hemoglobin 8.5 g/dL (12.0-16.0); Mean Corpuscular Hgb 29.3 pg (27.0-31.0); Mean Corpuscular Volume 94.5 fL (81.0-99.0); Mean Platelet Volume 8.7 fL (7.4-10.4); Platelet Count 352 10^3/uL (130-400); Red Cell Dist. Width 14.8 % (11.5-14.5); White Blood Cell Count 6.9 10^3/uL (4.8-10.8)
[2023-12-29 06:59] LABS: Blood Urea Nitrogen 3 mg/dl (7-17); Calcium 8.2 mg/dl (8.4-10.2); Carbon Dioxide 31 mmol/L (22-30); Chloride 99 mmol/L (98-107); Estimated Creatinine Clearance 109 ml/min; Glucose 76 mg/dl (70-99); Magnesium 1.9 mg/dl (1.6-2.3); Potassium 3.7 mmol/L (3.5-5.1); Sodium 137 mmol/L (135-145); eGFR > 60.00
[2023-12-29 07:37] VITALS: BP 157/73
[2023-12-29] MEDS: DUONEB 3 ML INH ×3 (07:56→20:23)
[2023-12-29] MEDS: PULMICORT 0.5 MG INH ×2 (07:56→20:23)
--- NOTE | 2023-12-29 08:39 | W.PN.CRS1 ---
Today's Communication / Plan
-
WBC normalized
Advance to fulls
Colace twice daily
Hold off on CTAP
Assessment/Plan
-
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
diverticulitis with abscess of 9.7 cm s/p IR guided transgluteal drainage and evacuation of 170 mL pus
AFVSS, WBC 6.9 from 11.2
�Continue nonoperative management; overall improving, but improvement has been slow; would hold off on CT scan
� Advance to full liquids; continue Zofran as needed
�No BM for a couple days; will start Colace twice daily
� Continue pain medication with Tylenol and Dilaudid as needed
� Continue DVT PPx with Lovenox
� Continue IR guided DAKOTA drain to bulb suction
� Continue IV antibiotics with Zosyn and voriconazole
�Continue home meds, okay for PO medications
� Care per hospitalist
Subjective Data
Subjective Data
Date of Service: December 29, 2023
No overnight events. Overall, feeling better, but appetite still limited.
Pain controlled.
Denies nausea/vomiting. Tolerating clears.
+flatus -BMs +voiding
Pt is OOB.
Objective Data
-
Vital Signs
Temp Pulse Resp BP Pulse Ox
97.6 F 67 16 157/73 97
12/29/23 07:37 12/29/23 08:02 12/29/23 08:02 12/29/23 07:37 12/29/23 08:02
Intake & Output
12/28/23 12/29/23 12/30/23
06:59 06:59 06:59
Intake Total 5 / 5 485 / 485
Output Total 55 / 55
Balance 5 / 5 430 / 430
Intake:
Oral fluids 480 / 480
Amount instilled into Drain (
Total)
Left Lower Sacrum Cole-Olmos
A Placed in IR
Output:
Drain Output (Total)
Left Lower Sacrum Cole-Olmos
A Placed in IR
Other:
Number of approximated SMALL 1
amounts of urine
Number of approximated MODERATE 1
amounts of urine
Lab Results
12/29/23 05:38
12/29/23 05:38
Physical Exam
-
General: No Acute Distress and AOx3
HEENT: Grossly Normal
Abdomen: Soft, Non Distended, Tender (Appropriately tender near drain; mildly tender in the suprapubic to LLQ), No Guarding and No Rebound
Skin: Warm and Dry
[2023-12-29] MEDS: VFEND 200 MG PO ×2 (09:32→21:03)
[2023-12-29] MEDS: SEROQUEL 50 MG PO ×2 (09:32→21:03)
[2023-12-29] MEDS: COLACE 100 MG PO ×2 (09:32→21:03)
[2023-12-29] MEDS: PROZAC 40 MG PO (09:33)
[2023-12-29] MEDS: VITAMIN D3 (cholecalciferol) 25 MCG PO (09:33)
[2023-12-29] MEDS: NSS (PRESERVATIVE FREE) 10 ML IV (09:33)
[2023-12-29] MEDS: ASPIR LOW (ENTERIC COATED) 81 MG PO (09:33)
[2023-12-29] MEDS: PROTONIX IV 40 MG IV (09:33)
--- NOTE | 2023-12-29 12:49 | W.PN.HOSP.TC ---
Today's Communication/Plan
-
see plan
Assessment / Plan
Assessment / Plan
pt is a 53 year old female
Sigmoid diverticulitis with abscess--HX Diverticulosis/diverticulitis--recent diverticulitis October 2023 treated with Augmentin @ [facility] prior diverticulitis 2020--(Had Course of Augmentin x3 days)--cont zosyn--apprec CRS and IR for
abscess drainage--IV pain control with Dilaudid--IV Protonix--As needed Zofran--Follow CBC, CMP--wound culture with 2 E. coli, Strep species, Group F Strep--
-WBC normalized today
-advanced to fulls
History of fungal lung infection Aspergillus since Apr 2023---Was treated this month for bacterial infection and ongoing fungal infection at [facility]--zosyn will cover most bacterial issues--cont voriconazole--stop oral steroids and
change to inhaled Pulmicort
Hyperkalemia--K 5.6, IV NSS
HLD--No current meds
GERD--Change p.o. Protonix to IV Protonix
Anxiety/depression--Continue Seroquel 50 mg twice daily, trazodone 200 mg at bedtime, Prozac 40 mg daily
DVT prophylaxis--Sq lovenox
Full code
Anticipated Discharge: > 48 hours
Subjective/Interval History
-
Date of Service: December 29, 2023
some abdominal pain
Objective Data
-
Labs:
Laboratory Results
12/29/23
05:38
WBC 6.9
Hgb 8.5 L
Hct 27.4 L
Plt Count 352
Sodium 137
Potassium 3.7
Chloride 99
Carbon Dioxide 31 H
BUN 3 L
Creatinine 0.5 L
Glucose 76
Calcium 8.2 L
Vital Signs:
Vital Signs
Temp Pulse Resp BP Pulse Ox
97.6 F 67 16 157/73 97
12/29/23 07:37 12/29/23 08:02 12/29/23 08:02 12/29/23 07:37 12/29/23 08:02
I&O
12/28/23 12/29/23 12/30/23
06:59 06:59 06:59
Intake Total 485 / 485
Output Total 55 / 55
Balance 430 / 430
Review of Systems
-
History Source: Patient
All other systems: Reviewed and negative
Physical Exam
-
General: Well Developed, Well Nourished and No Apparent Distress
HEENT: Normocephalic and Atraumatic
Respiratory: Clear to Auscultation; Negative Wheezes or Rhonchi
Cardiac: Regular Rhythm and S1/S2; Negative Murmur
GI: Soft, Nontender, Nondistended and Normal Bowel Sounds
Musculoskeletal: No Clubbing, No Cyanosis and No Edema
Neuro: Awake and Alert
Psych: Calm
Data Reviewed
-
Diagnostic Radiology: Report Reviewed by me
Labs: Labs Reviewed by me
[2023-12-29 12:51] VITALS: PULSE 78; O2SAT 93
[2023-12-29 15:28] VITALS: BP 140/60
[2023-12-29] MEDS: SINGULAIR 10 MG PO (17:20)
[2023-12-29] MEDS: LOVENOX 40 MG SC (17:20)
[2023-12-29] MEDS: DESYREL 200 MG PO (21:03)
[2023-12-29] MEDS: DILAUDID 0.5 MG IV (21:07)
[2023-12-29 23:28] VITALS: BP 122/53
[2023-12-30] MEDS: ZOSYN 50 IV ×4 (03:19→22:05)
[2023-12-30 07:09] LABS: % Basophils 0.3 % (0-2); % Eosinophils 3.6 % (0-6); % Immature Granulocytes 0.8 % (0-0.5); % Lymphocytes 21.4 % (20.5-51.1); % Monocytes 11.1 % (1.7-9.3); % Neutrophils 62.8 % (42.2-75.2); Absolute Eosinophils 0.3 10^3/uL (0-0.7); Absolute Immature Granulocytes 0.1 10^3/uL (0-0.05); Absolute Lymphocytes 1.6 10^3/uL (1.2-3.4); Absolute Monocytes 0.8 10^3/uL (0.1-0.6); Absolute Neutrophils 4.7 10^3/uL (1.4-6.5); Hemoglobin 9.3 g/dL (12.0-16.0); Mean Corpuscular Hgb 29.2 pg (27.0-31.0); Mean Corpuscular Volume 94.3 fL (81.0-99.0); Mean Platelet Volume 8.5 fL (7.4-10.4); Nucleated Red Blood Cells % 0 %; Platelet Count 414 10^3/uL (130-400); Red Blood Cell Count 3.18 10^6/uL (4.20-5.40); White Blood Cell Count 7.5 10^3/uL (4.8-10.8)
[2023-12-30] MEDS: DILAUDID 0.5 MG IV ×5 (07:12→22:05)
[2023-12-30 07:24] LABS: Blood Urea Nitrogen < 2 mg/dl (7-17); Calcium 8.5 mg/dl (8.4-10.2); Carbon Dioxide 35 mmol/L (22-30); Chloride 102 mmol/L (98-107); Estimated Creatinine Clearance 109 ml/min; Glucose 78 mg/dl (70-99); Magnesium 1.9 mg/dl (1.6-2.3); Potassium 4.7 mmol/L (3.5-5.1); Sodium 142 mmol/L (135-145); eGFR > 60.00
[2023-12-30] MEDS: DUONEB 3 ML INH ×3 (07:29→19:09)
[2023-12-30] MEDS: PULMICORT 0.5 MG INH ×2 (07:29→19:09)
[2023-12-30 08:30] VITALS: BP 140/66
[2023-12-30] MEDS: MIRALAX 17 GRAMS PO (09:09)
[2023-12-30] MEDS: PROZAC 40 MG PO (09:14)
[2023-12-30] MEDS: PROTONIX IV 40 MG IV (09:15)
[2023-12-30] MEDS: NSS (PRESERVATIVE FREE) 10 ML IV (09:16)
[2023-12-30] MEDS: VITAMIN D3 (cholecalciferol) 25 MCG PO (09:16)
[2023-12-30] MEDS: COLACE 100 MG PO ×2 (09:16→20:40)
[2023-12-30] MEDS: SEROQUEL 50 MG PO ×2 (09:16→20:40)
[2023-12-30] MEDS: ASPIR LOW (ENTERIC COATED) 81 MG PO (09:16)
--- NOTE | 2023-12-30 10:09 | W.PN.CRS1 ---
Documented by User: Roseline Regalado PA-C 12/30/23 10:13
Today's Communication / Plan
-
continue fulls
add miralax
Assessment/Plan
-
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
diverticulitis with abscess of 9.7 cm s/p IR guided transgluteal drainage and evacuation of 170 mL pus
AFVSS, WBC 7.5 from 6.9
� Patient on fulls, not feeling motivated to advance to low residue given pain. Will keep on fulls for now.
� Still no bowel movements, on Colace BID, will add Miralax daily
� Continue pain medication with Tylenol and Dilaudid as needed
� Continue DVT PPx with Lovenox
� Continue IR guided PRISCILA drain to bulb suction - cultures grew e.coli and strep group F and strep species
� Continue IV antibiotics with Zosyn and voriconazole
- No plans for surgery at this time
Subjective Data
Subjective Data
Date of Service: December 30, 2023
Patient states she feels improved overall. She denies nausea or vomiting. She did have some abdominal pain this morning and received IV Dilaudid. She has flatus but did not have a bowel movement yet.
Objective Data
-
Vital Signs
Temp Pulse Resp BP Pulse Ox
98.3 F 63 18 140/66 96
12/30/23 08:30 12/30/23 08:30 12/30/23 08:30 12/30/23 08:30 12/30/23 08:30
Intake & Output
12/29/23 12/30/23 12/31/23
06:59 06:59 06:59
Intake Total 485 / 485 1540 / 1540
Output Total 55 / 55
Balance 430 / 430 1530 / 1530 -15 15
Intake:
Oral fluids 480 / 480 1440 / 1440
IV piggybacks 100 / 100
Amount instilled into Drain (
Total)
Left Lower Sacrum Cole-Olmos
A Placed in IR
Output:
Drain Output (Total)
Left Lower Sacrum Cole-Olmos
A Placed in IR
Other:
Number of approximated MODERATE 2
amounts of urine
Lab Results
12/30/23 06:34
12/30/23 06:34
Physical Exam
-
General: No Acute Distress and AOx3
Abdomen: Soft, Non Distended, Non Tender and Other (priscila drain beige pus )
Skin: Warm and Dry

Documented by User: Deion Roman MD 12/30/23 19:24
Today's Communication / Plan
-
Low residue
[2023-12-30] MEDS: VFEND 200 MG PO ×2 (10:20→22:05)
--- NOTE | 2023-12-30 14:16 | W.PN.HOSP.TC ---
Today's Communication/Plan
-
anticipate d/c tomorrow
Assessment / Plan
Assessment / Plan
pt is a 53 year old female
Sigmoid diverticulitis with abscess--HX Diverticulosis/diverticulitis--recent diverticulitis October 2023 treated with Augmentin @ [facility] prior diverticulitis 2020--(Had Course of Augmentin x3 days)--cont zosyn--apprec CRS and IR for
abscess drainage--IV pain control with Dilaudid--IV Protonix--As needed Zofran--Follow CBC, CMP--wound culture with 2 E. coli, Strep species, Group F Strep--diet upgraded to solid food, IVF off, anticipate d/c tomorrow?
History of fungal lung infection Aspergillus since Apr 2023---Was treated this month for bacterial infection and ongoing fungal infection at [facility]--zosyn will cover most bacterial issues--cont voriconazole--stop oral steroids and
change to inhaled Pulmicort
Hyperkalemia--K 5.6, IV NSS
HLD--No current meds
GERD--Change p.o. Protonix to IV Protonix
Anxiety/depression--Continue Seroquel 50 mg twice daily, trazodone 200 mg at bedtime, Prozac 40 mg daily
DVT prophylaxis--Sq lovenox
Full code
Anticipated Discharge: Within 24 hours
Subjective/Interval History
-
Date of Service: December 30, 2023
pt eating solid food--asked to have back depakote HS
Objective Data
-
Labs:
Laboratory Results
12/30/23
06:34
WBC 7.5
Hgb 9.3 L
Hct 30.0 L
Plt Count 414 H
Sodium 142
Potassium 4.7 D
Chloride 102
Carbon Dioxide 35 H
BUN < 2 L
Creatinine 0.5 L
Glucose 78
Calcium 8.5
Vital Signs:
max temp for 24 hours
12/29/23
15:28
Temp 98.8 F
Vital Signs
Temp Pulse Resp BP Pulse Ox
98.3 F 63 18 140/66 96
12/30/23 08:30 12/30/23 08:30 12/30/23 08:30 12/30/23 08:30 12/30/23 08:30
I&O
12/29/23 12/30/23 12/31/23
06:59 06:59 06:59
Intake Total 485 / 485 1540 / 1540
Output Total 55 / 55
Balance 430 / 430 1530 / 1530 -15
Review of Systems
-
All other systems: Reviewed and negative
Physical Exam
-
General: Well Developed, Well Nourished and No Apparent Distress
HEENT: Normocephalic and Atraumatic
Respiratory: Clear to Auscultation; Negative Wheezes or Rhonchi
Cardiac: Regular Rhythm and S1/S2; Negative Murmur
GI: Soft, Nondistended, Normal Bowel Sounds and Tender
Musculoskeletal: No Clubbing, No Cyanosis and No Edema
Neuro: Awake
--- NOTE | 2023-12-30 14:19 | CM ---
Patient seen at bedside with physician. Patient stated that she forgot to tell the physician about Depakote and physician to update. Patient possibly for discharge tomorrow pending physician assessments. Patient requested [facility] to follow at
discharge. CM will continue to follow for discharge planning needs.
Plan; home with [facility]N/ [facility]
[2023-12-30 14:54] LABS: Glucose - Point of Care 106 mg/dl (70-99)
[2023-12-30 15:40] VITALS: BP 97/46
[2023-12-30 15:45] VITALS: PULSE 78; O2SAT 95
[2023-12-30] MEDS: LOVENOX 40 MG SC (18:02)
[2023-12-30] MEDS: SINGULAIR 10 MG PO (18:03)
[2023-12-30] MEDS: DEPAKOTE ER (24 HR RELEASE) 500 MG PO (22:05)
[2023-12-30] MEDS: DESYREL 200 MG PO (22:05)
[2023-12-30 23:03] VITALS: BP 128/55
[2023-12-30] MEDS: TYLENOL 650 MG PO (23:18)
[2023-12-31] MEDS: ZOSYN 50 IV ×4 (04:50→21:54)
[2023-12-31] MEDS: DILAUDID 0.5 MG IV ×5 (04:51→23:08)
[2023-12-31 05:35] LABS: Hematocrit 26.9 % (37.0-47.0); Hemoglobin 8.7 g/dL (12.0-16.0); Mean Corp Hgb Conc. 32.3 g/dL (33.0-37.0); Mean Corpuscular Hgb 29.6 pg (27.0-31.0); Mean Corpuscular Volume 91.5 fL (81.0-99.0); Mean Platelet Volume 8.4 fL (7.4-10.4); Platelet Count 387 10^3/uL (130-400); Red Blood Cell Count 2.94 10^6/uL (4.20-5.40); Red Cell Dist. Width 15.1 % (11.5-14.5); White Blood Cell Count 6.6 10^3/uL (4.8-10.8)
[2023-12-31 06:00] LABS: ALT (SGPT) < 10 U/L (0-35); AST (SGOT) 17 U/L (14-36); Albumin 2.5 g/dl (3.5-5.0); Alkaline Phosphatase 79 U/L (38-126); Blood Urea Nitrogen 2 mg/dl (7-17); Calcium 8.7 mg/dl (8.4-10.2); Carbon Dioxide 31 mmol/L (22-30); Chloride 100 mmol/L (98-107); Estimated Creatinine Clearance 109 ml/min; Glucose 77 mg/dl (70-99); Potassium 3.9 mmol/L (3.5-5.1); Sodium 139 mmol/L (135-145); Total Bilirubin 0.3 mg/dl (0.2-1.3); Total Protein 5.4 g/dl (6.3-8.2); eGFR > 60.00
[2023-12-31 07:45] VITALS: BP 108/73
[2023-12-31] MEDS: ASPIR LOW (ENTERIC COATED) 81 MG PO (08:19)
[2023-12-31] MEDS: VITAMIN D3 (cholecalciferol) 25 MCG PO (08:19)
[2023-12-31] MEDS: PROZAC 40 MG PO (08:19)
[2023-12-31] MEDS: PROTONIX IV 40 MG IV (08:19)
[2023-12-31] MEDS: MIRALAX 17 GRAMS PO (08:19)
[2023-12-31] MEDS: NSS (PRESERVATIVE FREE) 10 ML IV (08:19)
[2023-12-31] MEDS: SEROQUEL 50 MG PO ×2 (08:19→20:08)
[2023-12-31] MEDS: COLACE 100 MG PO ×2 (08:20→20:08)
[2023-12-31] MEDS: DUONEB 3 ML INH ×3 (08:21→19:14)
[2023-12-31] MEDS: PULMICORT 0.5 MG INH ×2 (08:21→19:14)
[2023-12-31] MEDS: ZOFRAN 4 MG IV ×2 (10:11→20:14)
--- NOTE | 2023-12-31 10:59 | W.PN.CRS1 ---
Today's Communication / Plan
-
Cont low residue diet
Cont pain control, switch to PO in preparation for DC
Cont bowel regimen, will give enema today
Okay for DC once medically clear
Will need follow-up with Dr. Roesnthal in 1 to 2 weeks
Assessment/Plan
-
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
diverticulitis with abscess of 9.7 cm s/p IR guided transgluteal drainage and evacuation of 170 mL pus
AFVSS, WBC 6.6 from 7.8
�Continue nonoperative management; overall improving, but improvement has been slow; no need for CT scan at this point
� Continue low residue
�No BM for a couple days; will start Colace twice daily and MiraLAX daily; will order enema in an attempt to get bowels moving
� Continue pain medication with Tylenol and Dilaudid as needed; recommend switch to tramadol for discharge purposes
� Continue DVT PPx with Lovenox
� Continue IR guided DAKOTA drain to bulb suction
� Continue IV antibiotics with Zosyn and voriconazole
�Continue home meds, okay for PO medications
� Care per hospitalist
Dispo�cleared from colorectal standpoint for discharge once medically cleared
-will need follow-up with Dr. Rosenthal in 1 to 2 weeks to discuss drain study (drain study does not need to be ordered prior to discharge)
-CRS will sign off, please call for questions concerns
Subjective Data
Subjective Data
Date of Service: December 31, 2023
No overnight events.
Pain persistent but controlled.
Denies nausea/vomiting. Tolerating bland low residue diet.
+flatus -BMs (none x2-3 days) +voiding
Pt is OOB.
Objective Data
-
Vital Signs
Temp Pulse Resp BP Pulse Ox
98.4 F 57 18 108/73 95
12/31/23 07:45 12/31/23 08:25 12/31/23 08:25 12/31/23 07:45 12/31/23 08:25
Intake & Output
12/30/23 12/31/23 01/01/24
06:59 06:59 06:59
Intake Total 1545 / 1545 2074 / 2074 50 / 50
Output Total
Balance 1520 / 1520 2051 / 2051 50 / 50
Intake:
Oral fluids 1440 / 1440 1919 / 1919
IV fluids (Total) 50 / 50
IV piggybacks 100 / 100 100 / 100 50 / 50
Amount instilled into Drain (
Total)
Left Lower Sacrum Cole-Olmos
A Placed in IR
Output:
Drain Output (Total)
Left Lower Sacrum Cole-Olmos
A Placed in IR
Other:
Number of approximated MODERATE 2 2
amounts of urine
Lab Results
12/31/23 04:34
12/31/23 04:34
Physical Exam
-
General: No Acute Distress and AOx3
HEENT: Grossly Normal
Abdomen: Soft, Non Distended, Tender (Minimally to mildly tender in the suprapubic to LLQ (seems improved from yesterday)), No Guarding, No Rebound and Other (DAKOTA-10 mL of murky serous output)
Skin: Warm and Dry
[2023-12-31] MEDS: VFEND 200 MG PO ×2 (11:46→21:55)
--- NOTE | 2023-12-31 14:32 | W.PN.HOSP.TC ---
Today's Communication/Plan
-
d/c
Assessment / Plan
Assessment / Plan
pt is a 53 year old female
Sigmoid diverticulitis with abscess--HX Diverticulosis/diverticulitis--recent diverticulitis October 2023 treated with Augmentin @ [facility] prior diverticulitis 2020--(Had Course of Augmentin x3 days)--cont zosyn--apprec CRS and IR for
abscess drainage--IV pain control with Dilaudid--IV Protonix--As needed Zofran--Follow CBC, CMP--wound culture with 2 E. coli, Strep species, Group F Strep--diet upgraded to solid food, IVF off, anticipate d/c after enema--will change to
cefdinir/flagyl at d/c
History of fungal lung infection Aspergillus since Apr 2023---Was treated this month for bacterial infection and ongoing fungal infection at [facility]--zosyn will cover most bacterial issues--cont voriconazole--stop oral steroids and
change to inhaled Pulmicort
Hyperkalemia--K 5.6, IV NSS
HLD--No current meds
GERD--Change p.o. Protonix to IV Protonix
Anxiety/depression--Continue Seroquel 50 mg twice daily, trazodone 200 mg at bedtime, Prozac 40 mg daily
DVT prophylaxis--Sq lovenox
Full code
Anticipated Discharge: Today
Subjective/Interval History
-
Date of Service: December 31, 2023
pt waiting for enema
Objective Data
-
Labs:
Laboratory Results
12/31/23
04:34
WBC 6.6
Hgb 8.7 L
Hct 26.9 L
Plt Count 387
Sodium 139
Potassium 3.9
Chloride 100
Carbon Dioxide 31 H
BUN 2 L
Creatinine 0.5 L
Glucose 77
Calcium 8.7
Total Bilirubin 0.3
AST 17
ALT < 10
Alkaline Phosphatase 79
Vital Signs:
max temp for 24 hours
12/30/23
18:30
Temp 98.5 F
Vital Signs
Temp Pulse Resp BP Pulse Ox
98.4 F 64 16 108/73 93
12/31/23 07:45 12/31/23 13:48 12/31/23 13:48 12/31/23 07:45 12/31/23 13:48
I&O
12/30/23 12/31/23 01/01/24
06:59 06:59 06:59
Intake Total 1545 / 1545 2074 50 / 50
Output Total
Balance 1520 / 1520 2051 50 / 50
Review of Systems
-
All other systems: Reviewed and negative
Abdomen/GI: Reports Constipated
Physical Exam
-
General: Well Developed, Well Nourished and No Apparent Distress
HEENT: Normocephalic and Atraumatic
Respiratory: Clear to Auscultation; Negative Wheezes or Rhonchi
Cardiac: Regular Rhythm and S1/S2; Negative Murmur
GI: Soft, Nontender, Nondistended and Normal Bowel Sounds
Musculoskeletal: No Clubbing, No Cyanosis and No Edema
Neuro: Awake and Alert
--- NOTE | 2023-12-31 14:47 | CM ---
Patient seen at bedside with patient friend, and physician. Patient stated that she needed enema prior to discharge and that she was planning to go home with friend. Patient to be followed by [facility] at discharge. CM will continue to follow for
discharge planning needs.
Plan; home with [facility]
[2023-12-31] MEDS: DULCOLAX 10 MG RECTAL (15:09)
[2023-12-31 15:30] VITALS: BP 141/69
--- NOTE | 2023-12-31 16:32 | VNURNOTE ---
Home Health Liaison revisited patient today to discuss [facility] SN copay of $84.70 per visit and patient is agreeable to that.
Patient has had basic instruction for DAKOTA flushing and care and is agreeable for SN follow up once home.
[2023-12-31] MEDS: LOVENOX SC (17:29)
[2023-12-31] MEDS: SINGULAIR 10 MG PO (17:34)
--- NOTE | 2023-12-31 19:13 | PTCARENOTE ---
Pt had tap water enema and dulcolax supp with no results. Dr. Whitlock and Dr. Roman aware. Milk of magnesia ordered.
[2023-12-31] MEDS: MILK OF MAGNESIA 30 ML PO (20:08)
[2023-12-31] MEDS: DEPAKOTE ER (24 HR RELEASE) 500 MG PO (21:55)
[2023-12-31] MEDS: DESYREL 200 MG PO (21:55)
[2023-12-31] MEDS: TESSALON PERLES 100 MG PO (23:07)
[2024-01-01 00:09] VITALS: BP 134/64
[2024-01-01] MEDS: ZOSYN 50 IV ×4 (04:23→22:01)
[2024-01-01] MEDS: DILAUDID 0.5 MG IV ×6 (05:53→22:04)
[2024-01-01 07:00] VITALS: BP 142/74
[2024-01-01] MEDS: DUONEB 3 ML INH ×3 (08:19→20:34)
[2024-01-01] MEDS: PULMICORT 0.5 MG INH (08:19)
[2024-01-01] MEDS: ZOFRAN 4 MG IV (08:52)
[2024-01-01] MEDS: MIRALAX 17 GRAMS PO (08:55)
[2024-01-01] MEDS: TESSALON PERLES 100 MG PO ×2 (08:57→18:15)
[2024-01-01] MEDS: ASPIR LOW (ENTERIC COATED) 81 MG PO (08:58)
[2024-01-01] MEDS: PROZAC 40 MG PO (08:58)
[2024-01-01] MEDS: VITAMIN D3 (cholecalciferol) 25 MCG PO (08:58)
[2024-01-01] MEDS: SEROQUEL 50 MG PO ×2 (08:58→19:12)
[2024-01-01] MEDS: NSS (PRESERVATIVE FREE) 10 ML IV (08:59)
[2024-01-01] MEDS: COLACE 100 MG PO ×2 (08:59→19:13)
[2024-01-01] MEDS: PROTONIX IV 40 MG IV (08:59)
[2024-01-01] MEDS: VFEND 200 MG PO ×2 (11:40→22:00)
--- NOTE | 2024-01-01 11:56 | W.PN.UPDATE ---
Update Note
Progress Note Update
Pt not discharged yesterday due to no BM yesterday; CRS did not see today; ok for d/c from our standpoint with or without BM; if any concerns/questions, please call and we will see patient
D/C recs: f/u with Dr. Rosenthal in 1-2 weeks and he will schedule the drain study
[2024-01-01] MEDS: DUONEB INH (13:54)
[2024-01-01 15:00] VITALS: BP 109/64
[2024-01-01 15:41] VITALS: BP 109/64; PULSE 59; O2SAT 98
--- NOTE | 2024-01-01 15:45 | CM ---
Patient seen bedside.
Ambulated with PT.
Await BM
Plan: is for home with [facility]
--- NOTE | 2024-01-01 16:00 | PTCARENOTE ---
Assumed care of pt from previous nurse. Pt for dc today but MD would like pt to have BM. milk of molasses enema provided, pt with liquid discharge with some mucous but no fecal matter noted. Per Dr. Meadows pt not for dc until true BM. Mag citrate
ordered and provided. Bowel regimen conts. Will re-evaluate for dc tomorrow.
--- NOTE | 2024-01-01 16:11 | W.PN.HOSP.TC ---
Today's Communication/Plan
-
trying to get pt to move bowels--no luck with 2 enema and dulcolax suppository
Assessment / Plan
Assessment / Plan
pt is a 53 year old female
Sigmoid diverticulitis with abscess--HX Diverticulosis/diverticulitis--recent diverticulitis October 2023 treated with Augmentin @ [facility] prior diverticulitis 2020--(Had Course of Augmentin x3 days)--cont zosyn--apprec CRS and IR for
abscess drainage--IV pain control with Dilaudid--IV Protonix--As needed Zofran--Follow CBC, CMP--wound culture with 2 E. coli, Strep species, Group F Strep--diet upgraded to solid food, IVF off--will change to cefdinir/flagyl at d/c--still has not
had BM
History of fungal lung infection Aspergillus since Apr 2023---Was treated this month for bacterial infection and ongoing fungal infection at [facility]--zosyn will cover most bacterial issues--cont voriconazole--stop oral steroids and
change to inhaled Pulmicort
Hyperkalemia--K 5.6, IV NSS
HLD--No current meds
GERD--Change p.o. Protonix to IV Protonix
Anxiety/depression--Continue Seroquel 50 mg twice daily, trazodone 200 mg at bedtime, Prozac 40 mg daily
DVT prophylaxis--Sq lovenox
Full code
Anticipated Discharge: Within 24 hours
Subjective/Interval History
-
Date of Service: January 01, 2024
pt did not have a BM--uncomfortable going home
Objective Data
-
Vital Signs:
max temp for 24 hours
01/01/24
07:00
Temp 98.6 F
Vital Signs
Temp Pulse Resp BP Pulse Ox
98.6 F 64 18 109/64 98
01/01/24 15:00 01/01/24 15:26 01/01/24 15:26 01/01/24 15:00 01/01/24 15:26
I&O
12/31/23 01/01/24 01/02/24
06:59 06:59 06:59
Intake Total 2074 995 / 995 780 / 780
Output Total
Balance 2048 982 / 982 780 / 780
Review of Systems
-
All other systems: Reviewed and negative
Abdomen/GI: Reports Constipated
Physical Exam
-
General: Well Developed, Well Nourished and No Apparent Distress
HEENT: Normocephalic and Atraumatic
Respiratory: Clear to Auscultation; Negative Wheezes or Rhonchi
Cardiac: Regular Rhythm and S1/S2; Negative Murmur
GI: Soft, Nontender, Nondistended, Normal Bowel Sounds and Other (DAKOTA drain)
Musculoskeletal: No Clubbing, No Cyanosis and No Edema
Skin: Warm
Neuro: Awake
[2024-01-01] MEDS: CITROMA 300 ML PO (17:48)
[2024-01-01] MEDS: LOVENOX SC (17:49)
[2024-01-01] MEDS: SINGULAIR 10 MG PO (18:15)
[2024-01-01] MEDS: DEPAKOTE ER (24 HR RELEASE) 500 MG PO (22:01)
[2024-01-01] MEDS: DESYREL 200 MG PO (22:01)
[2024-01-01 23:59] VITALS: BP 108/47
[2024-01-02] MEDS: ZOSYN 50 IV ×2 (04:40→10:53)
[2024-01-02] MEDS: DILAUDID 0.5 MG IV ×5 (04:40→21:32)
[2024-01-02] MEDS: ZOFRAN 4 MG IV ×2 (04:42→20:11)
[2024-01-02 06:58] LABS: Hematocrit 28.5 % (37.0-47.0); Hemoglobin 9.2 g/dL (12.0-16.0); Mean Corp Hgb Conc. 32.3 g/dL (33.0-37.0); Mean Corpuscular Hgb 29.8 pg (27.0-31.0); Mean Corpuscular Volume 92.2 fL (81.0-99.0); Mean Platelet Volume 8.5 fL (7.4-10.4); Platelet Count 368 10^3/uL (130-400); Red Blood Cell Count 3.09 10^6/uL (4.20-5.40); Red Cell Dist. Width 15.2 % (11.5-14.5); White Blood Cell Count 8.1 10^3/uL (4.8-10.8)
[2024-01-02 07:00] VITALS: BP 150/69
--- NOTE | 2024-01-02 08:03 | W.PN.HOSP.TC ---
Today's Communication/Plan
-
check abdominal x-ray
d/c when pt has BM
Assessment / Plan
Assessment / Plan
pt is a 53 year old female
Sigmoid diverticulitis with abscess--HX Diverticulosis/diverticulitis--recent diverticulitis October 2023 treated with Augmentin @ [facility] prior diverticulitis 2020--(Had Course of Augmentin x3 days)--cont zosyn--apprec CRS and IR for
abscess drainage--IV pain control with Dilaudid--IV Protonix--As needed Zofran--Follow CBC, CMP--wound culture with 2 E. coli, Strep species, Group F Strep--diet upgraded to solid food, IVF off--will change to cefdinir/flagyl at d/c--still has not
had BM despite enemas, suppository, oral bowel regime, mag citrate--will check abdominal x-ray
History of fungal lung infection Aspergillus since Apr 2023---Was treated this month for bacterial infection and ongoing fungal infection at [facility]--zosyn will cover most bacterial issues--cont voriconazole--stop oral steroids and
change to inhaled Pulmicort
Hyperkalemia--K 5.6, IV NSS
HLD--No current meds
GERD--Change p.o. Protonix to IV Protonix
Anxiety/depression--Continue Seroquel 50 mg twice daily, trazodone 200 mg at bedtime, Prozac 40 mg daily
DVT prophylaxis--Sq lovenox
Full code
Anticipated Discharge: 24 - 48 hours
Subjective/Interval History
-
Date of Service: January 02, 2024
pt still has not moved bowels--now c/o increased pain
Objective Data
-
Labs:
Laboratory Results
01/02/24
06:31
WBC 8.1
Hgb 9.2 L
Hct 28.5 L
Plt Count 368
Vital Signs:
max temp for 24 hours
01/01/24
15:00
Temp 98.6 F
Vital Signs
Temp Pulse Resp BP Pulse Ox
98.3 F 64 18 108/47 97
01/01/24 23:59 01/01/24 23:59 01/01/24 23:59 01/01/24 23:59 01/01/24 23:59
I&O
01/01/24 01/02/24 01/03/24
06:59 06:59 06:59
Intake Total 995 / 995 1490 / 1490
Output Total
Balance 982 / 982 1486 / 1486
Review of Systems
-
All other systems: Reviewed and negative
Abdomen/GI: Reports Abdominal Pain and Constipated
Physical Exam
-
General: Well Developed, Well Nourished and Pain
HEENT: Normocephalic, Atraumatic and Oxygen
Respiratory: Clear to Auscultation; Negative Wheezes or Rhonchi
Cardiac: Regular Rhythm and S1/S2; Negative Murmur
GI: Soft, Normal Bowel Sounds, Tender (without guarding or rebound), Distended and Other (DAKOTA drain in place)
Musculoskeletal: No Clubbing, No Cyanosis and No Edema
[2024-01-02] MEDS: DUONEB INH (08:14)
[2024-01-02] MEDS: MIRALAX 17 GRAMS PO (08:32)
[2024-01-02] MEDS: SEROQUEL 50 MG PO ×2 (08:33→20:03)
[2024-01-02] MEDS: COLACE 100 MG PO ×2 (08:33→20:03)
[2024-01-02] MEDS: PROZAC 40 MG PO (08:33)
[2024-01-02] MEDS: NSS (PRESERVATIVE FREE) 10 ML IV (08:34)
[2024-01-02] MEDS: PROTONIX IV 40 MG IV (08:34)
[2024-01-02] MEDS: VITAMIN D3 (cholecalciferol) 25 MCG PO (08:34)
[2024-01-02] MEDS: ASPIR LOW (ENTERIC COATED) 81 MG PO (08:34)
[2024-01-02] MEDS: VFEND 200 MG PO ×2 (10:53→21:33)
[2024-01-02 15:00] VITALS: BP 136/69
[2024-01-02] MEDS: LOVENOX 40 MG SC (17:33)
[2024-01-02] MEDS: DUPHALAC/CHRONULAC 20 GRAMS PO ×3 (17:33→21:33)
[2024-01-02] MEDS: SINGULAIR 10 MG PO (17:33)
[2024-01-02] MEDS: DESYREL 200 MG PO (21:33)
[2024-01-02] MEDS: DEPAKOTE ER (24 HR RELEASE) 500 MG PO (21:33)
[2024-01-02 23:25] VITALS: BP 158/80
[2024-01-03] VITALS (37 sets, daily range): BP systolic 0–152; BP diastolic 34–89
[2024-01-03] MEDS: DILAUDID 0.5 MG IV ×6 (00:44→20:57)
[2024-01-03] MEDS: ZOFRAN 4 MG IV (03:45)
[2024-01-03] MEDS: SEROQUEL 50 MG PO ×2 (09:03→22:18)
[2024-01-03] MEDS: PROZAC 40 MG PO (09:03)
[2024-01-03] MEDS: VFEND 200 MG PO (09:03)
[2024-01-03] MEDS: MIRALAX 17 GRAMS PO (09:03)
[2024-01-03] MEDS: PROTONIX IV 40 MG IV (09:04)
[2024-01-03] MEDS: VITAMIN D3 (cholecalciferol) 25 MCG PO (09:04)
[2024-01-03] MEDS: NSS (PRESERVATIVE FREE) 10 ML IV (09:04)
[2024-01-03] MEDS: ASPIR LOW (ENTERIC COATED) 81 MG PO (09:04)
[2024-01-03] MEDS: COLACE 100 MG PO (09:04)
[2024-01-03] MEDS: DUPHALAC/CHRONULAC 20 GRAMS PO (09:04)
[2024-01-03] MEDS: OMNIPAQUE 50 ML PO (10:31)
--- NOTE | 2024-01-03 10:35 | W.PN.HOSP.TC ---
Today's Communication/Plan
-
ct scan abdomen/pelvis
likely OR today
Assessment / Plan
Assessment / Plan
pt is a 53 year old female
Sigmoid diverticulitis with abscess--HX Diverticulosis/diverticulitis--recent diverticulitis October 2023 treated with Augmentin @ [facility] prior diverticulitis 2020--(Had Course of Augmentin x3 days)--cont zosyn--apprec CRS and IR for
abscess drainage--IV pain control with Dilaudid--IV Protonix--As needed Zofran--Follow CBC, CMP--wound culture with 2 E. coli, Strep species, Group F Strep--diet upgraded to solid food, IVF off--will change to cefdinir/flagyl at d/c--still has not
had BM despite enemas, suppository, oral bowel regimen, mag citrate-- abdominal x-ray showed Moderate fluid and stool burden throughout the colon--surgery checking CT scan, likely will need surgery with colostomy.....
History of fungal lung infection Aspergillus since Apr 2023---Was treated this month for bacterial infection and ongoing fungal infection at [facility]--zosyn will cover most bacterial issues--cont voriconazole--stop oral steroids and
change to inhaled Pulmicort
Hyperkalemia--resolved
HLD--No current meds
GERD--Change p.o. Protonix to IV Protonix
Anxiety/depression--Continue Seroquel 50 mg twice daily, trazodone 200 mg at bedtime, Prozac 40 mg daily
DVT prophylaxis--Sq lovenox
Full code
Anticipated Discharge: > 48 hours
Subjective/Interval History
-
Date of Service: January 03, 2024
pt did not move bowels--getting CT scan--now nauseous--trying to get down oral contrast
Objective Data
-
Labs:
Laboratory Results
01/03/24
10:17
WBC Pending
Hgb Pending
Hct Pending
Plt Count Pending
Sodium Pending
Potassium Pending
Chloride Pending
Carbon Dioxide Pending
BUN Pending
Creatinine Pending
Glucose Pending
Calcium Pending
Vital Signs:
max temp for 24 hours
01/02/24
23:25
Temp 98.8 F
Vital Signs
Temp Pulse Resp BP Pulse Ox
98.4 F 67 16 152/81 95
01/03/24 07:06 01/03/24 07:06 01/03/24 07:06 01/03/24 07:06 01/03/24 07:06
I&O
01/02/24 01/03/24 01/04/24
06:59 06:59 06:59
Intake Total 1490 / 1490 960 / 960
Output Total 4 / 4 5 /
Balance 1486 / 1486 955 / 955
Review of Systems
-
All other systems: Reviewed and negative
Abdomen/GI: Reports Abdominal Pain, Nausea, Vomiting and Other (no BMs); Denies Diarrhea or Constipated
Physical Exam
-
General: Well Developed, Well Nourished and Appears in Distress
HEENT: Normocephalic and Atraumatic
Respiratory: Clear to Auscultation; Negative Wheezes or Rhonchi
Cardiac: Regular Rhythm and S1/S2; Negative Murmur
GI: Soft, Tender (diffusely) and Distended; Negative Normal Bowel Sounds (high pitched bowel sounds)
Musculoskeletal: No Clubbing, No Cyanosis and No Edema
Neuro: Awake and Alert
[2024-01-03 11:07] LABS: Hematocrit 31.5 % (37.0-47.0); Hemoglobin 10.3 g/dL (12.0-16.0); Mean Corp Hgb Conc. 32.7 g/dL (33.0-37.0); Mean Corpuscular Hgb 29.9 pg (27.0-31.0); Mean Corpuscular Volume 91.3 fL (81.0-99.0); Mean Platelet Volume 8.2 fL (7.4-10.4); Platelet Count 394 10^3/uL (130-400); Red Blood Cell Count 3.45 10^6/uL (4.20-5.40); Red Cell Dist. Width 15.3 % (11.5-14.5); White Blood Cell Count 10.7 10^3/uL (4.8-10.8)
[2024-01-03 11:21] LABS: Blood Urea Nitrogen 8 mg/dl (7-17); Calcium 8.7 mg/dl (8.4-10.2); Carbon Dioxide 31 mmol/L (22-30); Chloride 101 mmol/L (98-107); Estimated Creatinine Clearance 109 ml/min; Glucose 99 mg/dl (70-99); Potassium 4.3 mmol/L (3.5-5.1); Sodium 137 mmol/L (135-145); eGFR > 60.00
[2024-01-03] MEDS: NSS 1000 IV (12:21)
--- NOTE | 2024-01-03 13:38 | W.PN.CRS1 ---
Addendum entered and electronically signed by Ricki Ernst MD 01/03/24 20:02:
I saw and examined the patient.
The Smoking Tobacco Cutter Operator's note was reviewed and I agree with the note.
Comment: Worsening pain and distention, no flatus or BM in 4 days, toxic appearing. Exam with mod-sev ttp diffusely and severe distention. Concern for sigmoid stricture, plan for OR for Sav's.
Original Note:
Today's Communication / Plan
-
Resume ABX
Check CT
Continue IR drain
Assessment/Plan
-
53-year-old female with PMH of GERD, anxiety/depression, HLD, aspergillosis pneumonia (on chronic O2 and antifungal, recent prednisone taper), recurrent diverticulitis who presented with 1 week of abdominal pain s/p 4 days of oral antibiotic, CT
showing diverticulitis with abscess of 9.7 cm s/p IR guided transgluteal drainage and evacuation of 170 mL pus on 12/24. Initially improving, but now with worsening pain and recurrence of nausea/vomiting. No BM x4 days despite multiple laxatives.
Afebrile without leukocytosis.
-NPO given given GI symptoms
-Repeat CT imaging A&P with po/iv contrast
�Continue IR guided DAKOTA drain to bulb suction
�Resume Zosyn, LD was yesterday afternoon
Surgical recommendations pending CT imaging
Subjective Data
Subjective Data
Date of Service: January 03, 2024
Patient seen and examined at bedside this morning around [address] Ernst. Worsening abdominal pain over the past few days with nausea and vomiting. Unable to pass BM despite multiple laxatives. Passing flatus. Uncomfortable appearing.
Objective Data
-
Vital Signs
Temp Pulse Resp BP Pulse Ox
98.4 F 67 16 152/81 95
01/03/24 07:06 01/03/24 07:06 01/03/24 07:06 01/03/24 07:06 01/03/24 07:06
Intake & Output
01/02/24 01/03/24 01/04/24
06:59 06:59 06:59
Intake Total 1490 / 1490 960 / 960
Output Total
Balance 1486 / 1486 955 / 955
Intake:
Oral fluids 1490 / 1490 960 / 960
Output:
Drain Output (Total)
Left Lower Sacrum Cole-Olmos
A Placed in IR
Other:
Number of approximated MODERATE 2 2
amounts of urine
How many times incontinent 3
MODERATE amount urine
Lab Results
01/03/24 11:00
01/03/24 11:00
Physical Exam
-
General: AOx3 and Other (Uncomfortable and ill appearing)
HEENT: Grossly Normal
Abdomen: Soft, Distended (moderate), Tender (Generalized L>R), No Guarding, No Rebound and Other (DAKOTA-10 mL of murky serous output)
Skin: Warm, Dry and Other (Drain with cloudy serous fluid, minimal outputs)
[2024-01-03] MEDS: ZOSYN 50 IV ×2 (14:30→20:00)
[2024-01-03] MEDS: DUPHALAC/CHRONULAC PO ×2 (17:47→21:04)
[2024-01-03] MEDS: SINGULAIR PO (18:15)
[2024-01-03] MEDS: LOVENOX SC (18:15)
[2024-01-03] MEDS: NSS IV (18:15)
--- NOTE | 2024-01-03 18:21 | PTCARENOTE ---
Patient went down to the OR for surgery.
[2024-01-03] MEDS: LEVOPHED 250 IV (19:30)
--- NOTE | 2024-01-03 19:56 | W.PN.UPDATE ---
Update Note
Progress Note Update
Patient in PACU, post Hartmanns procedure and splenic flexure takedown by Dr Ernst, Patient with Low BP requiring Levophed drip, Dr. Ernst requesting ICU bed suspect Sepsis. Dr. Cuevas, MAEVE Davis made aware.
--- NOTE | 2024-01-03 20:02 | W.IMMPOSTOP ---
Surgical Immed Post Op Note
-
Primary Surgeon: Klever
Pre-op Diagnosis: Sigmoid diverticulitis
Post-op Diagnosis: Same
Procedure Performed: Exploratory laparotomy, takedown splenic flexure, creation end colostomy, omentectomy
Anesthesia Type: GETA
Specimen / Cultures: None
Estimated Blood Loss: 150cc
Complications: None immediate
Operative Findings: Severely distended cecum and transverse colon with serosal tears resulting from the distention; serosal tears repaired with 2-0 silk lembert sutures, severely inflamed and firm sigmoid totally socked in at the LLQ; blunt finger
fracture used to liberate sigmoid from abd wall as much as possible but due to concern with this degree of scarring either from severe diverticulitis or possible malignancy (the tissue appeared to invade the ab wall superficially) mobilization of
this area was limited due to the extent of the scarring and concern for nearby iliac vessels; very friable distal sigmoid stump, staple line held but unable to oversew as the tissue would not hold suture; Unable to reach previously placed IR drain,
this was left in situ; 19fr rolanda drain placed into LLQ and pelvis around the stump; inferior pole spleen with capsular tear, an expected occurrence during splenic flexure takedown, controlled with direct pressure and cautery; single small bowel
serosal tear, an expected occurrence due to the friability of the tissues and distension, repaired with 2-0 silk lembert sutures. Approx 1L of liquid stool milked from the colon, descending colon colostomy. May develop ileus, NGT placed in OR and
confirmed in the stomach.
--- NOTE | 2024-01-03 20:40 | PTCARENOTE ---
Pt belongings were brought to ICU room 3372. Report given to TABITHA Martinez.
[2024-01-03] MEDS: DEPAKOTE ER (24 HR RELEASE) PO (21:04)
[2024-01-03] MEDS: DESYREL PO (21:04)
[2024-01-03] MEDS: COLACE PO (21:04)
[2024-01-03] MEDS: SEROQUEL PO (21:04)
[2024-01-03] MEDS: VFEND PO (21:04)
[2024-01-03 21:26] LABS: Hematocrit 27.7 % (37.0-47.0); Mean Corp Hgb Conc. 32.5 g/dL (33.0-37.0); Mean Corpuscular Hgb 29.6 pg (27.0-31.0); Mean Corpuscular Volume 91.1 fL (81.0-99.0); Mean Platelet Volume 8.7 fL (7.4-10.4); Platelet Count 411 10^3/uL (130-400); Red Blood Cell Count 3.04 10^6/uL (4.20-5.40); Red Cell Dist. Width 15.3 % (11.5-14.5); White Blood Cell Count 11.5 10^3/uL (4.8-10.8)
[2024-01-03 21:35] LABS: INR 1.83
[2024-01-03 21:36] LABS: APTT 33.8 Sec (23.4-35.0)
[2024-01-03 21:38] LABS: Lactic Acid 1.1 mmol/L (0.7-2.0)
--- NOTE | 2024-01-03 21:54 | PTCARENOTE ---
rec'd patient from PACU. drowsy but arousable to voice. oriented but forgetful at times. ST on monitor. levo gtt received at 4mcg, SBP goal >90. afebrile. on 4L NC, diminished breath sounds. R nare NGT to LIS. midline incision dressing with small
amount of drainage, outlined for reference. ostomy with red stoma, dressing saturated and leaking around site, surgeon notified and instructed to replace dressing as needed. 2 DAKOTA drains noted. L flank with yellow cloudy drainage. DAKOTA #2 with
sanguineous drainage. NPO, given ok from both house BIOCHEMIST and surgeon to give meds through NGT and clamp after. rojo ordered and inserted with 300ml return of yellow urine. SCDs on.
pt given PRN dilaudid for severe left abdomen and flank pain. no relief noted, pt trashing in pain in bed. house BIOCHEMIST and surgeon notified. awaiting orders.
call richard within reach, care ongoing.
[2024-01-03] MEDS: DESYREL 200 MG PO (22:17)
[2024-01-03] MEDS: DILAUDID PCA 30 IV (22:56)
[2024-01-03] MEDS: D5/0.45%NACL 1000 IV (23:00)
[2024-01-03 23:05] LABS: Blood Urea Nitrogen 8 mg/dl (7-17); Calcium 5.8 mg/dl (8.4-10.2); Carbon Dioxide 22 mmol/L (22-30); Chloride 105 mmol/L (98-107); Estimated Creatinine Clearance 109 ml/min; Glucose 232 mg/dl (70-99); Potassium 3.3 mmol/L (3.5-5.1); Sodium 134 mmol/L (135-145); eGFR > 60.00
[2024-01-03] MEDS: CALCIUM GLUCONATE 290 MG IV (23:35)
--- NOTE | 2024-01-03 23:46 | PTCARENOTE ---
systems reviewed. dilaudid CONTINUOUS DRIER HELPER pump initiated for pain mgmt, pt educated on use. levo gtt titrated off. lytes repleted. SR on monitor. weaned to 2L NC. call richard within reach, care ongoing.
[2024-01-03 23:52] LABS: Magnesium 1.8 mg/dl (1.6-2.3)
[2024-01-04] VITALS (47 sets, daily range): BP systolic 95–137; BP diastolic 47–71
[2024-01-04] MEDS: KCL 270 MEQ IV (00:42)
[2024-01-04] MEDS: ZOSYN 50 IV ×4 (03:51→20:54)
[2024-01-04] MEDS: NSS 1000 IV ×3 (03:51→20:55)
[2024-01-04 04:24] LABS: Hematocrit 32.8 % (37.0-47.0); Hemoglobin 10.6 g/dL (12.0-16.0); Mean Corp Hgb Conc. 32.3 g/dL (33.0-37.0); Mean Corpuscular Hgb 30.2 pg (27.0-31.0); Mean Corpuscular Volume 93.4 fL (81.0-99.0); Mean Platelet Volume 8.9 fL (7.4-10.4); Platelet Count 381 10^3/uL (130-400); Red Blood Cell Count 3.51 10^6/uL (4.20-5.40); Red Cell Dist. Width 15.4 % (11.5-14.5); White Blood Cell Count 22.5 10^3/uL (4.8-10.8)
--- NOTE | 2024-01-04 04:28 | PTCARENOTE ---
systems reviewed. pt drowsy but arouses to voice. c/o pain in L abdomen/flank, reinforced education on ECONOMIC DEVELOPMENT DIRECTOR pump. AM labs sent. pt repositioned. care ongoing.
[2024-01-04 05:14] LABS: ALT (SGPT) < 10 U/L (0-35); AST (SGOT) 21 U/L (14-36); Alkaline Phosphatase 55 U/L (38-126); Blood Urea Nitrogen 13 mg/dl (7-17); Calcium 8.5 mg/dl (8.4-10.2); Carbon Dioxide 26 mmol/L (22-30); Chloride 103 mmol/L (98-107); Estimated Creatinine Clearance 109 ml/min; Glucose 134 mg/dl (70-99); Magnesium 2.2 mg/dl (1.6-2.3); Potassium 5.8 mmol/L (3.5-5.1); Sodium 136 mmol/L (135-145); Total Bilirubin 0.5 mg/dl (0.2-1.3); Total Protein 4.7 g/dl (6.3-8.2); eGFR > 60.00
[2024-01-04] MEDS: NSS (PRESERVATIVE FREE) 10 ML IV (07:48)
[2024-01-04] MEDS: PROTONIX IV 40 MG IV (07:48)
[2024-01-04] MEDS: PROZAC 40 MG PO (07:48)
[2024-01-04] MEDS: ASPIR LOW (ENTERIC COATED) 81 MG PO (07:48)
[2024-01-04] MEDS: VITAMIN D3 (cholecalciferol) 25 MCG PO (07:49)
[2024-01-04] MEDS: MIRALAX 17 GRAMS PO (07:49)
[2024-01-04] MEDS: SEROQUEL 50 MG PO ×2 (07:49→20:54)
[2024-01-04] MEDS: COLACE 100 MG PO ×2 (07:49→20:54)
[2024-01-04] MEDS: DUPHALAC/CHRONULAC 20 GRAMS PO ×2 (07:50→20:54)
--- NOTE | 2024-01-04 08:14 | PTOTSP ---
Patient will need new orders to resume PT once she is medically ready for therapy.
--- NOTE | 2024-01-04 08:35 | W.PN.HOSP.TC ---
Today's Communication/Plan
-
see bold
Assessment / Plan
Assessment / Plan
Gen: NAD, Awake and alert
Eyes: EOMI, PERRLA, no scleral icterus.
Neck: supple.
CV: RRR, +S1/S2, no m/r/g.
Resp: CTAB, no rales, wheezes, or rhonchi.
Abd: absent BS, soft, NT to light palpation, ND
Skin: No rashes.
Neuro: CN 2-12 intact, non-focal.
Psych: Normal mood and affect.
12/26/23 14:43 Blood/Venous Blood Culture - Final
No Growth - Final Report
12/26/23 12:59 Blood/Venous Blood Culture - Final
No Growth - Final Report
12/25/23 17:30 Abscess Wound Culture - Final
Escherichia coli
Escherichia coli#2
Streptococcus species
Group F Streptococcus
12/25/23 17:30 Abscess Gram Stain - Final
CT A/P 12/24/23:
1. Severe sigmoid diverticulitis with large complex pericolonic abscess in this region as described.
2. Probable chronic mild infectious/inflammatory bronchitis/bronchiolitis in the lung bases.
CT A/P 01/03/24: Markedly decreased posterior true pelvis abscess in comparison to prior pre-op chest drainage study with pigtail drainage catheter seen in the soft tissues of the left posterior true pelvis. Massively distended right colon including
cecum (cecum measuring up to 12 cm) with marked maximal colonic stool as well as gaseous distention of transverse and proximal descending colon, moderate stool with distention of the distal descending and sigmoid colon, limited in evaluation without
oral contrast opacification. Thickening Of the wall of the distal descending and proximal sigmoid colon which could represent colitis or diverticulitis. Partially obstructing distal colonic mass with inflammation cannot be excluded. No free air.
Sigmoid diverticulitis with abscess:
-h/o diverticulosis/diverticulitis
-s/p abscess drainage 12/25/23 by IR
-with findings of massively distended right colon including the cecum on CT scan of the abdomen pelvis on January 03, 2024 the patient was taken to the OR for Exploratory laparotomy, takedown splenic flexure, creation end colostomy, omentectomy
-cont Zosyn for now. Consider ID c/s.
-currently on dilaudid BUCKLE SEWER
Other problems:
h/o pulmonary Aspergillus: since Apr 2023. cont Vfend.
Hyperkalemia, resolved
HLD
GERD: cont PPI
Anxiety/depression: Continue Seroquel/Trazodone/Prozac/Depakote
FULL/Lovenox
Anticipated Discharge: > 48 hours
Subjective/Interval History
-
Date of Service: January 04, 2024
Objective Data
-
Labs:
Laboratory Results
01/03/24 01/03/24 01/04/24
21:17 22:18 04:03
WBC 11.5 H 22.5 H
Hgb 9.0 L 10.6 L
Hct 27.7 L 32.8 L
Plt Count 411 H 381
PT 21.0 H
INR 1.83
APTT 33.8
Sodium Cancelled 134 L 136
Potassium Cancelled 3.3 L 5.8 H D
Chloride Cancelled 105 103
Carbon Dioxide Cancelled 22 26
BUN Cancelled 8 13
Creatinine Cancelled 0.4 L 0.6
Glucose Cancelled 232 H 134 H
Calcium Cancelled 5.8 L* D 8.5 D
Total Bilirubin 0.5
AST 21
ALT < 10
Alkaline Phosphatase 55
Vital Signs:
Vital Signs
Temp Pulse Resp BP Pulse Ox
98.0 F 88 12 99/51 97
01/04/24 07:44 01/04/24 06:30 01/04/24 06:30 01/04/24 06:30 01/04/24 06:30
I&O
01/03/24 01/04/24 01/05/24
06:59 06:59 06:59
Intake Total 960 / 960 2094
Output Total 1185 / 1185
Balance 955 / 955 910 / 910
--- NOTE | 2024-01-04 09:03 | CON.INTV ---
Consultation
Consultation Request
Date/Time Consultation Requested: 01/03/2024 - 2001
Date/Time Consultation Performed: 01/04/2024857
Requesting Provider: SILVIA Wu
Performing Provider: Shahriar Tanner MD
Reason for Consultation: Postoperative monitoring s/p ex lap
Medical History
-
Chief Complaint: Abdominal pain
History of Present Illness:
53-year-old female with past medical history of recurrent diverticulitis, pulmonary aspergillosis, hyperlipidemia, anxiety/depression, and GERD who presents with abdominal pain. She apparently was recently treated for diverticulitis in October 2023
with Augmentin at [facility] in [place] where she resides. She also reported that she was treated this month for ongoing fungal lung infection with Aspergillus and also given additional antibiotics but unknown what names of these
medications are. She developed a fever about 5 days ago and continues to be on Augmentin for last 3 days. She was visiting her mother in [place] prior to arrival when the pain in her left lower quadrant became severe so she came here to the ""hospital for further care. She was afebrile in the ER to 98.6 �F, 79 pulse rate, breathing at 16 breaths/min, normotensive at 133/77 and saturating 100% on room air. Labs showed leukocytosis to 21.2, mild anemia to 11.5, mild hyponatremia to 134,
mild hyperkalemia to 5.6, and negative lipase of <10. CT A/P on admission showed severe sigmoid diverticulitis with large pericolonic abscess. She was given pain medications in the ER + Levaquin + IV fluids with NS x1L, and admitted to the
hospitalist service with general surgery consulted and antibiotics were started with Zosyn. She underwent IR CT-guided drainage on 12/24 with 170 cc of pale green purulent material seen - this later grew E. coli and group F Streptococcus. Patient
continues to be managed on the floor and was having issues with constipation. Repeat CT A/P performed on 01/02 showing decrease size in the abscess with pigtail drainage catheter seen in place, with massively distended right colon including the
cecum with stool distention and continued suspected distal descending colon/sigmoid diverticulitis. Given patient's worsening pain with distention and no flatus or BM in about 4 days, patient underwent exploratory laparotomy with splenic flexure
takedown, creation of end colostomy and omentectomy on 01/03/2024, and transferred to the ICU postoperatively. There was 150 cc of EBL and no immediate complications. Critical care services now consulted for additional management/recommendations.
Today when I saw the patient she was in bed, in no acute distress, with BP 124/48, heart rate 76 and saturating 96% on 2 L/min. She was minimally interactive and just wanted to sleep and otherwise be left alone. She was answering my questions
appropriately however.
PMHx: History of diverticulosis with recurrent diverticulitis (as recent as October 2023 +2020), history of pulmonary aspergillosis (04/2023), hyperlipidemia, anxiety/depression, GERD
PSHx: C5-6 fusion, ankle surgery
Past Medical History
Past Medical History: Other (Above as per HPI)
Past Surgical History: Other (Above as per HPI)
Social History
Tobacco: Non-smoker
Alcohol: None
Drug: None
Personal: Single
Living: Alone
Family History
Family History: Other (Diverticulosis: Mother + brother)
Allergies / Home Medications
Allergies
Allergy/AdvReac Type Severity Reaction Status Date / Time
No Known Allergies Allergy Unverified 12/24/23 15:13
Home Medications
�Medication �Instructions �Recorded �Confirmed �Last Taken �Type
acetaminophen 500 mg tablet 1,000 mg PO Q6H PRN mild pain/fever 12/24/23 12/24/23 Unknown History
albuterol sulfate 90 mcg/actuation 2 puff inhalation R Q4 PRN 12/24/23 12/24/23 Unknown History
aerosol inhaler sob/wheezing
aspirin 81 mg tablet,delayed 81 mg PO DAILY Blood Clot 12/24/23 12/24/23 3 Days Ago History
release Prevention/Tx ~12/21/23
benzonatate 100 mg capsule 100 mg PO TID PRN cough 12/24/23 12/24/23 Unknown History
cholecalciferol (vitamin D3) 25 25 mcg PO DAILY Supplement 12/24/23 12/24/23 12/24/23 History
mcg (1,000 unit) tablet (Vitamin
D3)
fluoxetine 40 mg capsule (Prozac) 40 mg PO DAILY Mental 12/24/23 12/24/23 12/24/23 History
Health/Anxiety
fluticasone furoate 200 1 inh inhalation R DAILY 12/24/23 12/24/23 12/24/23 History
mcg-vilanterol 25 mcg/dose Lung/Breathing Issues
inhalation powder (Breo Ellipta)
ibuprofen 200 mg capsule 200 mg PO Q6H PRN mild pain/fever 12/24/23 12/24/23 12/23/23 History
ipratropium 0.5 mg-albuterol 3 mg 3 ml inhalation R TID 12/24/23 12/24/23 12/24/23 History
(2.5 mg base)/3 mL nebulization Lung/Breathing Issues
soln
melatonin 3 mg tablet 3 mg PO HS PRN sleep 12/24/23 12/24/23 Unknown History
montelukast 10 mg tablet 10 mg PO QPM ASTHMA 12/24/23 12/24/23 12/23/23 History
pantoprazole 40 mg tablet,delayed 40 mg PO DAILY Gastrointestinal 12/24/23 12/24/23 12/24/23 History
release Issue
quetiapine 50 mg tablet (Seroquel) 50 mg PO BID Mental Health/Anxiety 12/24/23 12/24/23 12/24/23 History
trazodone 100 mg tablet 200 mg PO HS Mental Health/Anxiety 12/24/23 12/24/23 12/23/23 History
voriconazole 200 mg tablet 200 mg PO Q12H 12/24/23 12/24/23 12/24/23 History
budesonide 0.5 mg/2 mL suspension 0.5 mg (2 mL) inhalation R BID #60 12/31/23 Unknown Rx
for nebulization mL
cefdinir 300 mg capsule 300 mg PO BID #28 caps 12/31/23 Unknown Rx
divalproex 500 mg tablet,extended 500 mg PO HS #30 tabs 12/31/23 Unknown Rx
release 24 hr
docusate sodium 100 mg capsule 100 mg PO BID #0 caps 12/31/23 Unknown Rx
metronidazole 500 mg tablet 500 mg PO TID #42 tabs 12/31/23 Unknown Rx
polyethylene glycol 3350 17 gram 17 g PO DAILY #0 ea 12/31/23 Unknown Rx
oral powder packet (HealthyLax)
sodium chloride 0.9 % (flush) 5 ml intra-catheter DAILY #2,500 mL 12/31/23 Unknown Rx
(Normal Saline Flush 0.9 %
injection syringe)
hydrocodone 5 mg-acetaminophen 325 1 tab PO Q8H PRN severe pain only 01/01/24 Unknown Rx
mg tablet #20 tabs
Review of Systems
-
History Source: Patient
All other systems: Negative unless noted
Vitals / Labs / Diagnostic Testing
Vital Signs
Temp Pulse Resp BP Pulse Ox
99.2 F 81 15 110/47 94
01/04/24 11:56 01/04/24 11:30 01/04/24 11:30 01/04/24 11:30 01/04/24 11:30
Lab Data
01/04/24 04:03
01/04/24 04:03
Laboratory Results
01/03/24
21:17
PT 21.0 H
INR 1.83
APTT 33.8
Diagnostic Testing:
Physical Exam
-
HEENT: Normocephalic and Anicteric
Cardiovascular: S1/S2 and Peripheral Edema (Negative)
Respiratory: Wheeze (Negative), Rales (Bilaterally (L >R)) and Rhonchi (Negative)
GI: Soft, Non Distended, Tender, Normal Bowel Sounds and Other (Midline bandage in place)
Neurology: Other (Lethargic but easily arousable and answers questions appropriately)
Skin: Warm and Dry
General: Respiratory Distress (Negative), Comfortable and Chills (Negative)
Assessment
-
Assessment: 53-year-old female with past medical history of recurrent diverticulitis, pulmonary aspergillosis, hyperlipidemia, anxiety/depression, and GERD who presents with abdominal pain. She apparently was recently treated for diverticulitis in
October 2023 with Augmentin at [facility] in [place] where she resides. She also reported that she was treated this month for ongoing fungal lung infection with Aspergillus and also given additional antibiotics but unknown what names
of these medications are. She developed a fever about 5 days ago and continues to be on Augmentin for last 3 days. She was visiting her mother in [place] prior to arrival when the pain in her left lower quadrant became severe so she came here
to the hospital for further care. She was afebrile in the ER to 98.6 �F, 79 pulse rate, breathing at 16 breaths/min, normotensive at 133/77 and saturating 100% on room air. Labs showed leukocytosis to 21.2, mild anemia to 11.5, mild hyponatremia
to 134, mild hyperkalemia to 5.6, and negative lipase of <10. CT A/P on admission showed severe sigmoid diverticulitis with large pericolonic abscess. She was given pain medications in the ER + Levaquin + IV fluids with NS x1L, and admitted to the
hospitalist service with general surgery consulted and antibiotics were started with Zosyn. She underwent IR CT-guided drainage on 12/24 with 170 cc of pale green purulent material seen - this later grew E. coli and group F Streptococcus. Patient
continues to be managed on the floor and was having issues with constipation. Repeat CT A/P performed on 01/02 showing decrease size in the abscess with pigtail drainage catheter seen in place, with massively distended right colon including the
cecum with stool distention and continued suspected distal descending colon/sigmoid diverticulitis. Given patient's worsening pain with distention and no flatus or BM in about 4 days, patient underwent exploratory laparotomy with splenic flexure
takedown, creation of end colostomy and omentectomy on 01/03/2024, and transferred to the ICU postoperatively. There was 150 cc of EBL and no immediate complications. Critical care services now consulted for additional management/recommendations.
Chronic conditions CURRICULUM MANAGER: History of diverticulosis with recurrent diverticulitis (as recent as October 2023 +2020), history of pulmonary aspergillosis (04/2023), hyperlipidemia, anxiety/depression, GERD
Impression:
#Sigmoid diverticulitis s/p exploratory laparotomy with splenic flexure takedown, end colostomy creation and omentectomy � POD #1
#Sigmoid diverticulitis c/b large pericolonic abscess s/p IR CT-guided drainage on 12/24 with purulent fluid growing E. coli + group F Streptococcus
#Constipation
#Leukocytosis
#Anemia (unknown baseline but she has been between 8.5�11.5g/dL since admission
#Hyperkalemia (could be due to hemolysis as other labs appear to be within normal limits without MANSOOR, however her gout could be another source of this elevated K level)
#Lower lobe pulmonary bronchiectasis � likely due to her history of chronic pulmonary aspergillosis diagnosed in fall 2022
#History of pulmonary aspergillosis on voriconazole
Plan:
- Postoperative care as per colorectal surgery
- Pain control is paramount � patient has a BUSINESS MANAGEMENT MANAGER Dilaudid pump and she appears comfortable today at bedside
- Continue with antibiotics with Zosyn
- She is also on voriconazole for her history of pulmonary aspergillosis
- NPO until told otherwise by CRC
- Maintain SpO2 >90-94%
- Maintain MAP>65 with pressors if needed
- She has crackles on exam with a small left-sided pleural effusion � continue to monitor volume status and administer Lasix if needed
- Replete electrolytes with K>4, Mg>2
- Trend potassium level considering it was 5.8 today and keep below sign 5.5
- Maintain euglycemia with goal BG 140-180
- Trend Hb and transfuse if needed to keep Hb>7g/dL, plt>50k
- prn nebulized bronchodilators
- Incentive spirometer once abd pain has improved
- DVT ppx: LMWH
Critical care statement: A total of 40 minutes of critical care time was provided for this patient today. This includes management of unstable vital signs, evaluation of the patient at bedside, reviewing the patient's pertinent medical records
including radiographs, microbiology, laboratory evaluations, and discussion with primary team, consultants, pharmacy, nutrition, physical therapy, case management, charge nurse, critical care nursing, and respiratory therapy.
Data:
CXR 01-03-2024: Small left pleural effusion with associated probable atelectasis.
CT Abd/Pelvis with IV/PO Contrast 01-03-2024:
Markedly decreased posterior true pelvis abscess in comparison to prior pre-op chest drainage study with pigtail drainage catheter seen in the soft tissues of the left posterior true pelvis.
Massively distended right colon including cecum (cecum measuring up to 12 cm) with marked maximal colonic stool as well as gaseous distention of transverse and proximal descending colon, moderate stool with distention of the distal descending and
sigmoid colon, limited in evaluation without oral contrast opacification. Thickening Of the wall of the distal descending and proximal sigmoid colon which could represent colitis or diverticulitis. Partially obstructing distal colonic mass with
inflammation cannot be excluded. No free air.
--- NOTE | 2024-01-04 09:05 | PTCARENOTE ---
PT received in bed,drowsy but arousable to voice. oriented but forgetful at times. NSR on monitor. +pulses, trace edema afebrile. on 2L NC, diminished breath sounds. R nare NGT to LIS. midline incision dressing with small amount of drainage, ostomy
with red stoma, 2 DAKOTA drains noted. L flank with yellow cloudy drainage. DAKOTA #2 with sanguineous drainage. Calles care as per protocol, clear yellow urine, BORDEREAU CLERK Dilaudid, 0 continuous rate, demand bolus 0.5 mg, bolus lock out 10 min, total hourly dose 3
mg, NSS @ 120 ml/hr
[2024-01-04] MEDS: VFEND 200 MG PO ×2 (10:22→20:54)
--- NOTE | 2024-01-04 11:35 | PTCARENOTE ---
Spencer phone calls regarding updates on PT, only 1 person SEPIDEH Kathy is listed as person of contact, PT is not awake enough to ask if she wants others to be able to receive information
--- NOTE | 2024-01-04 13:09 | W.PN.GS2 ---
Addendum entered and electronically signed by Sandor Salazar MD 01/04/24 20:35:
I saw and examined the patient independently.
The resident's note was reviewed and I agree with the note, assessment and plan except where noted below.
Comment: This is a 53-year-old female her recent aspergillus pneumonia who presented with diverticulitis and a large pelvic abscess status post drainage 12/25/2023. Fortunately clinically worsened and is now postoperative day 1 from a exploratory
laparotomy, takedown of the splenic flexure, creation of end ileostomy with omentectomy. Appropriately tender, DAKOTA with fairly serous output. Ostomy is dusky and productive of bowel sweat.
N.p.o., IV fluids, NG tube to low intermittent wall suction.
Continue Zosyn
Await return of bowel function.
Original Note:
Today's Communication / Plan
-
POD #1
NPO
Trend white counts while on IV antibiotics
Pain control as needed.
Assessment / Plan
-
Assessment: 53 yo female with recent aspergillus pneumonia on O2 and on steroids presenting with complicated diverticulitis with large pelvic abscess
S/p IR drainage 12/25/2023. S/p exploratory laparotomy with takedown of splenic flexure, creation end colostomy with omentectomy POD #1. Abdominal exam remarkable for generalized abdominal pain rated 8/10 in bilateral suprapubic area. Patient seen
in the room with her executive vice president and her sister at bedside.
POD #1 with leukocytosis noted, however patient remains afebrile with his stable vital signs.
Continue IV antibiotics with Zosyn, and trend white blood cell counts.
NPO, NGT with minimal drainage.
Pain control as needed.
Subjective Data
-
Date of Service: January 04, 2024
Objective Data
-
Intake and Output
01/03/24 01/04/24 01/05/24
06:59 06:59 06:59
Intake Total 960 / 960 2095 / 2255 960 / 960
Output Total 1185 / 1245 125 / 125
Balance 955 / 955 910 / 1010 835 / 835
Intake:
Oral fluids 960 / 960
IV fluids (Total) 1475 / 1635 960 / 960
D5/0.45%NaCl 1,000 ml @ 40 mls/ 240 / 240
hr IV .Q24H PRN Rx#:[id number]
Levo 15 / 15
Normosol 500 / 500
Nss 1,000 ml @ 120 mls/hr IV . 960 / 1080 720 / 720
Q8H20M CORY Rx#:[id number]
IV piggybacks 620 / 620
Amount instilled into GI Tube ( 0 / 0
Total)
Tehama Sump 0 / 0
Output:
Drain Output (Total) 385 / 385
Left Abdomen Cole-Olmos 370 / 370
Left Lower Sacrum Cole-Olmos 15 / 15
A Placed in IR
Gastrointestinal tube output ( 200 / 200
Total)
Tehama Sump 200 / 200
Urine, Calles 600 / 660 125 / 125
Other:
Number of approximated MODERATE 2 2
amounts of urine
Vital Signs
Temp Pulse Resp BP Pulse Ox
99.2 F 81 13 107/59 95
01/04/24 11:56 01/04/24 12:30 01/04/24 12:30 01/04/24 12:30 01/04/24 12:30
Lab Results
01/04/24 04:03
01/04/24 04:03
Calcium 8.5 mg/dl (8.4-10.2) D 01/04/24 04:03
Magnesium 2.2 mg/dl (1.6-2.3) 01/04/24 04:03
Total Bilirubin 0.5 mg/dl (0.2-1.3) 01/04/24 04:03
AST 21 U/L (14-36) 01/04/24 04:03
ALT < 10 U/L (0-35) 01/04/24 04:03
Alkaline Phosphatase 55 U/L (38-126) 01/04/24 04:03
Total Protein 4.7 g/dl (6.3-8.2) L 01/04/24 04:03
Albumin 2.0 g/dl (3.5-5.0) L 01/04/24 04:03
Physical Exam
-
General: Awake, alert and oriented x3, not in distress and holds appropriate conversation.
Respiratory: Normal respiratory effort, no respiratory distress.
Lungs: Good air entry bilaterally, no wheezing or rhonchi, no rales or crackles
Heart: S1, S2 regular, normal rate, no added sound.
Gastrointestinal: Reduced bowel sounds, soft, mildly distended, generalized tenderness mostly in bilateral epigastric area, no guarding or rigidity,DAKOTA-minimal serous output.
Skin: Warm, drain in place with minimal serous fluid.
[2024-01-04] MEDS: ZOFRAN 4 MG IV (13:25)
[2024-01-04] MEDS: DUPHALAC/CHRONULAC PO (15:42)
[2024-01-04] MEDS: SINGULAIR PO (15:43)
[2024-01-04] MEDS: LOVENOX 40 MG SC (17:48)
--- NOTE | 2024-01-04 17:52 | PTCARENOTE ---
PT assessment remains unchanged, PT verbalizes agreement with brother Abel and friend Colin Piña are allowed to receive info regarding PT
--- NOTE | 2024-01-04 20:30 | PTCARENOTE ---
rec'd patient. assessment as documented. drowsy but arousable to voice, oriented but forgetful of time. SR on monitor. on 4L NC, denies SOB. NGT to LIS. colostomy with red, budded stoma. midline incision with small amt of drainage. DAKOTA drain x2,
dressings soiled and changed. sites cleansed with NS. rojo in place. CHG bath, teeth brushed, rojo care done. pt repositioned for comfort. dilaudid AIR TRAFFIC INSTRUCTOR and IVF continue. education reinforced on AIR TRAFFIC INSTRUCTOR pump. call richard within reach, care ongoing.
[2024-01-04] MEDS: DEPAKOTE ER (24 HR RELEASE) 500 MG PO (20:54)
[2024-01-04] MEDS: DESYREL 200 MG PO (20:54)
[2024-01-04 21:18] LABS: ALT (SGPT) < 10 U/L (0-35); AST (SGOT) 18 U/L (14-36); Albumin 1.7 g/dl (3.5-5.0); Alkaline Phosphatase 51 U/L (38-126); Blood Urea Nitrogen 22 mg/dl (7-17); Calcium 6.7 mg/dl (8.4-10.2); Carbon Dioxide 25 mmol/L (22-30); Chloride 110 mmol/L (98-107); Estimated Creatinine Clearance 73 ml/min; Glucose 111 mg/dl (70-99); Potassium 4.3 mmol/L (3.5-5.1); Sodium 136 mmol/L (135-145); Total Bilirubin 0.2 mg/dl (0.2-1.3); eGFR > 60.00
[2024-01-04] MEDS: CALCIUM GLUCONATE 130 MG IV (22:01)
[2024-01-05] VITALS (26 sets, daily range): BP systolic 96–140; BP diastolic 43–97; PULSE 80; O2SAT 97; BMI 28.8
[2024-01-05] MEDS: ZOSYN 50 IV ×4 (03:00→20:52)
[2024-01-05] MEDS: NSS 1000 IV ×3 (03:00→20:52)
[2024-01-05 03:20] LABS: Hematocrit 22.1 % (37.0-47.0); Mean Corp Hgb Conc. 32.1 g/dL (33.0-37.0); Mean Corpuscular Hgb 30.1 pg (27.0-31.0); Mean Corpuscular Volume 93.6 fL (81.0-99.0); Platelet Count 282 10^3/uL (130-400); Red Blood Cell Count 2.36 10^6/uL (4.20-5.40); Red Cell Dist. Width 15.5 % (11.5-14.5); White Blood Cell Count 14.7 10^3/uL (4.8-10.8)
--- NOTE | 2024-01-05 03:23 | PTCARENOTE ---
systems reviewed. pt wakes randomly with severe pain in abdomen, reinforced use of CONSUMER SERVICES ADVISOR pump. pt repositioned. AM labs sent. sister updated via phone overnight. call richard within reach, care ongoing.
[2024-01-05 03:39] LABS: Blood Urea Nitrogen 25 mg/dl (7-17); Calcium 7.6 mg/dl (8.4-10.2); Carbon Dioxide 24 mmol/L (22-30); Chloride 110 mmol/L (98-107); Estimated Creatinine Clearance 107 ml/min; Glucose 105 mg/dl (70-99); Magnesium 2.1 mg/dl (1.6-2.3); Potassium 4.5 mmol/L (3.5-5.1); Sodium 137 mmol/L (135-145); eGFR > 60.00
[2024-01-05 03:48] LABS: Hemoglobin 7.1 g/dL (12.0-16.0)
[2024-01-05] MEDS: CALCIUM GLUCONATE 100 IV (05:20)
[2024-01-05] MEDS: ASPIR LOW (ENTERIC COATED) 81 MG PO (07:29)
[2024-01-05] MEDS: MIRALAX 17 GRAMS PO (07:30)
[2024-01-05] MEDS: VITAMIN D3 (cholecalciferol) 25 MCG PO (07:30)
[2024-01-05] MEDS: PROTONIX IV 40 MG IV (07:30)
[2024-01-05] MEDS: PROZAC 40 MG PO (07:30)
[2024-01-05] MEDS: NSS (PRESERVATIVE FREE) 10 ML IV (07:30)
[2024-01-05] MEDS: DUPHALAC/CHRONULAC 20 GRAMS PO (07:30)
[2024-01-05] MEDS: COLACE 100 MG PO ×2 (07:30→20:51)
[2024-01-05] MEDS: SEROQUEL 50 MG PO ×2 (07:31→20:51)
--- NOTE | 2024-01-05 08:46 | PTCARENOTE ---
rec'd patient. assessment as documented. drowsy but arousable to voice, oriented. SR on monitor. on 4L NC, denies SOB. NGT to LIS, meds given and NGT clamped. colostomy with dusky red, budded stoma. midline incision with small amt of drainage. DAKOTA
drain x2, dressings intact. rojo in place. Rojo care done. pt repositioned for comfort. dilaudid BSA/AML COMPLIANCE OFFICER and IVF continue. education reinforced on BSA/AML COMPLIANCE OFFICER pump. call richard within reach, care ongoing.
--- NOTE | 2024-01-05 09:13 | W.PN.HOSP.TC ---
Today's Communication/Plan
-
see bold
Assessment / Plan
Assessment / Plan
Gen: NAD, Awake and alert
Eyes: EOMI, PERRLA, no scleral icterus.
Neck: supple.
CV: remains RRR, +S1/S2, no m/r/g.
Resp: CTAB anteriorly, no rales, wheezes, or rhonchi.
Abd: hypoactive BS, soft, mild tenderness to light palpation, ND
Skin: No rashes.
Neuro: CN 2-12 intact, non-focal.
Psych: Normal mood and affect.
12/26/23 14:43 Blood/Venous Blood Culture - Final
No Growth - Final Report
12/26/23 12:59 Blood/Venous Blood Culture - Final
No Growth - Final Report
12/25/23 17:30 Abscess Wound Culture - Final
Escherichia coli
Escherichia coli#2
Streptococcus species
Group F Streptococcus
12/25/23 17:30 Abscess Gram Stain - Final
CT A/P 12/24/23:
1. Severe sigmoid diverticulitis with large complex pericolonic abscess in this region as described.
2. Probable chronic mild infectious/inflammatory bronchitis/bronchiolitis in the lung bases.
CT A/P 01/03/24: Markedly decreased posterior true pelvis abscess in comparison to prior pre-op chest drainage study with pigtail drainage catheter seen in the soft tissues of the left posterior true pelvis. Massively distended right colon including
cecum (cecum measuring up to 12 cm) with marked maximal colonic stool as well as gaseous distention of transverse and proximal descending colon, moderate stool with distention of the distal descending and sigmoid colon, limited in evaluation without
oral contrast opacification. Thickening Of the wall of the distal descending and proximal sigmoid colon which could represent colitis or diverticulitis. Partially obstructing distal colonic mass with inflammation cannot be excluded. No free air.
Sigmoid diverticulitis with abscess:
-h/o diverticulosis/diverticulitis
-s/p abscess drainage 12/25/23 by IR
-with findings of massively distended right colon including the cecum on CT scan of the abdomen pelvis on January 03, 2024 the patient was taken to the OR for Exploratory laparotomy, takedown splenic flexure, creation end colostomy, omentectomy
-cont Zosyn
-c/s ID
-currently on dilaudid FLEXO FOLDER GLUER OPERATOR
-NGT to suction
Acute blood loss anemia:
-cont to trend Hb, currently 8.1
Other problems:
h/o pulmonary Aspergillus: since Apr 2023. cont Vfend.
Hyperkalemia, resolved
HLD
GERD: cont PPI
Anxiety/depression: Continue Seroquel/Trazodone/Prozac/Depakote
FULL/Lovenox
Anticipated Discharge: > 48 hours
Subjective/Interval History
-
Date of Service: January 05, 2024
No new complaints.
Objective Data
-
Labs:
Laboratory Results
01/04/24 01/05/24
20:50 03:06
WBC 14.7 H
Hgb 7.1 L D
Hct 22.1 L
Plt Count 282 D
Sodium 136 137
Potassium 4.3 D 4.5
Chloride 110 H 110 H
Carbon Dioxide 25 24
BUN 22 H 25 H
Creatinine 0.9 0.7
Glucose 111 H 105 H
Calcium 6.7 L* D 7.6 L
Total Bilirubin 0.2
AST 18
ALT < 10
Alkaline Phosphatase 51
Vital Signs:
Vital Signs
Temp Pulse Resp BP Pulse Ox
98.8 F 81 17 128/49 96
01/05/24 08:00 01/05/24 08:00 01/05/24 08:00 01/05/24 08:00 01/05/24 08:00
I&O
01/04/24 01/05/24 01/06/24
06:59 06:59 06:59
Intake Total 2094 / 2254 4010 / 4170 590 / 590
Output Total 1185 / 1245 1285 / 1285 320 / 320
Balance 910 / 1010 2725 / 2885 270 / 270
--- NOTE | 2024-01-05 09:14 | W.PN.INTV ---
Today's Communication / Plan
Recommendations
Continue Zosyn
Recommend ID consult given she has Hx of pulmonary aspergillosis
Continue voriconazole
Pain control
Trial of Flexeril for her fidgety limbs
MAP>65
Up OOB as tolerated
Assessment
-
Assessment: 53-year-old female with past medical history of recurrent diverticulitis, pulmonary aspergillosis, hyperlipidemia, anxiety/depression, and GERD who presents with abdominal pain. She apparently was recently treated for diverticulitis in
October 2023 with Augmentin at [facility] in [place] where she resides. She also reported that she was treated this month for ongoing fungal lung infection with Aspergillus and also given additional antibiotics but unknown what names
of these medications are. She developed a fever about 5 days ago and continues to be on Augmentin for last 3 days. She was visiting her mother in [place] prior to arrival when the pain in her left lower quadrant became severe so she came here
to the hospital for further care. She was afebrile in the ER to 98.6 �F, 79 pulse rate, breathing at 16 breaths/min, normotensive at 133/77 and saturating 100% on room air. Labs showed leukocytosis to 21.2, mild anemia to 11.5, mild hyponatremia
to 134, mild hyperkalemia to 5.6, and negative lipase of <10. CT A/P on admission showed severe sigmoid diverticulitis with large pericolonic abscess. She was given pain medications in the ER + Levaquin + IV fluids with NS x1L, and admitted to the
hospitalist service with general surgery consulted and antibiotics were started with Zosyn. She underwent IR CT-guided drainage on 12/24 with 170 cc of pale green purulent material seen - this later grew E. coli and group F Streptococcus. Patient
continues to be managed on the floor and was having issues with constipation. Repeat CT A/P performed on 01/02 showing decrease size in the abscess with pigtail drainage catheter seen in place, with massively distended right colon including the
cecum with stool distention and continued suspected distal descending colon/sigmoid diverticulitis. Given patient's worsening pain with distention and no flatus or BM in about 4 days, patient underwent exploratory laparotomy with splenic flexure
takedown, creation of end colostomy and omentectomy on 01/03/2024, and transferred to the ICU postoperatively. There was 150 cc of EBL and no immediate complications. Critical care services now consulted for additional management/recommendations.
Chronic conditions SURVEILLANCE DIRECTOR: History of diverticulosis with recurrent diverticulitis (as recent as October 2023 +2020), history of pulmonary aspergillosis (04/2023), hyperlipidemia, anxiety/depression, GERD
Impression:
#Sigmoid diverticulitis s/p exploratory laparotomy with splenic flexure takedown, end colostomy creation and omentectomy � POD #2
#Sigmoid diverticulitis c/b large pericolonic abscess s/p IR CT-guided drainage on 12/24 with purulent fluid growing E. coli + group F Streptococcus
#Constipation
#Leukocytosis
#Anemia (unknown baseline but she has been between 8.5�11.5g/dL since admission
#Hyperkalemia (resolved - it was due to hemolysis)
#Lower lobe pulmonary bronchiectasis � likely due to her history of chronic pulmonary aspergillosis diagnosed in fall 2022
#History of pulmonary aspergillosis on voriconazole
Plan:
- Postoperative care as per colorectal surgery
- Pain control is paramount � patient has a RETAIL GROCER Dilaudid pump and she appears comfortable today at bedside
- Continue with antibiotics with Zosyn
- She takes Breo, DuoNebs TID and budesonide BID prn --> resume DuoNebs and use Symbicort as we do not carry breo
- She is also on voriconazole for her history of pulmonary aspergillosis
- NPO until told otherwise by CRC
- Keep NGT to LIWS
- Maintain SpO2 >90-94%
- Maintain MAP>65 with pressors if needed
- Replete electrolytes with K>4, Mg>2
- Maintain euglycemia with goal BG 140-180
- Trend Hb and transfuse if needed to keep Hb>7g/dL, plt>50k
- prn nebulized bronchodilators
- Incentive spirometer once abd pain has improved
- Given flexeril as needed for muscle spams/fidgety limbs
- DVT ppx: LMWH
Downgrade out of ICU as per surgery. Individualized Education Plan Aide/pulmonary service will continue to follow along while she remains in the ICU. Once she is downgraded we will sign off.
Total time spent today was 75 minutes for this encounter. Time includes reviewing laboratory test/imaging results, reviewing pertinent medical records, obtaining and reviewing medical history, performing an appropriate exam, ordering medications,
tests and procedures. Time also includes documentation of this encounter, coordinating patient care and communicating with other healthcare professionals. Total time does not include separately billed tests performed on this date of service.
Data:
CXR 01-03-2024: Small left pleural effusion with associated probable atelectasis.
CT Abd/Pelvis with IV/PO Contrast 01-03-2024:
Markedly decreased posterior true pelvis abscess in comparison to prior pre-op chest drainage study with pigtail drainage catheter seen in the soft tissues of the left posterior true pelvis.
Massively distended right colon including cecum (cecum measuring up to 12 cm) with marked maximal colonic stool as well as gaseous distention of transverse and proximal descending colon, moderate stool with distention of the distal descending and
sigmoid colon, limited in evaluation without oral contrast opacification. Thickening Of the wall of the distal descending and proximal sigmoid colon which could represent colitis or diverticulitis. Partially obstructing distal colonic mass with
inflammation cannot be excluded. No free air.
Subjective Dataa
Subjective Data
Date of Service:
Date of Service: January 05, 2024
Chief Complaint: Individualized Education Plan Aide Follow Up
Subjective:
Pt seen and evaluated this AM. Hb 7.1 this AM and repeat was 8.1. RETAIL GROCER pump stopped this AM. Calles removed this AM. No obvious stool from colostomy. NGT on LIWS. She is on 4L/min, SPo2 97%, HR 76 and BP 114/55. She was sitting in the chair
when I saw her but having these fidgets/spasms in her legs and arms. She was unable to tell me if she usually has that. She endorses abdominal pain. She denies chest pain, headache, fevers or chills.
Review of Systems
General: Other (Negative unless mentioned above)
Objective Data
Data Reviewed
Vital Signs / I&O / Oxygen:
Vital Signs
Temp Pulse Resp BP Pulse Ox
98.8 F 81 17 128/49 96
01/05/24 08:00 01/05/24 08:00 01/05/24 08:00 01/05/24 08:00 01/05/24 08:00
Intake and Output
01/04/24 01/05/24 01/06/24
06:59 06:59 06:59
Intake Total 2095 / 2255 4010 / 4170 590 / 590
Output Total 1185 / 1245 1285 / 1285 320 / 320
Balance 910 / 1010 2725 / 2885 270 / 270
SaO2 96
Nasal Cannula flow liters per 4
minute
Physical Exam
General: Respiratory Distress (Negative) and Chills (Negative)
HEENT: Normocephalic and Anicteric
Cardiovascular: S1-S2 and Peripheral Edema (Negative)
Respiratory: Wheeze (Negative), Crackles (Negative), Rhonchi (Negative), Non-Labored Respirations and Other (Reduced breath sounds due to pain during inspiration)
GI: Soft, Non Distended, Tender and Other (Vertebral bandage; colostomy seen in LLQ with dark bloody fluid seen in colostomy bag)
Neurology: Awake and Alert
Skin: Warm, Dry and Other (Fidgety movements seen in the arms and legs)
Labs/Micro/Reports
Lab Data
01/05/24 03:06
01/05/24 03:06
[2024-01-05 10:08] LABS: Hematocrit 24.6 % (37.0-47.0); Hemoglobin 8.1 g/dL (12.0-16.0)
[2024-01-05] MEDS: VFEND 200 MG PO ×2 (10:10→20:51)
--- NOTE | 2024-01-05 11:20 | W.PN.GS2 ---
Addendum entered and electronically signed by Shahriar Stahl MD 01/05/24 11:35:
-- DC Calles
Original Note:
Today's Communication / Plan
-
-- NPO, IVF, NGT to suction
-- Pain control: DC ASSEMBLER WATCH TRAIN, Tylenol, Dilaudid PRN, hold on Toradol for now with Hb drift
-- Stop bowel medications
-- Trend labs
Assessment / Plan
-
Assessment: 53 yo female with recent aspergillus pneumonia on O2 and on steroids presenting with complicated diverticulitis with large pelvic abscess
S/p IR drainage 12/25/2023.
S/p exploratory laparotomy with takedown of splenic flexure, creation end colostomy with omentectomy POD#2.
Clinically stable, signs of objective improvement with decreasing WBC, passage of flatus, minimal light bilious output. Monitor for additional 24 hrs, consider NGT removal tomorrow.
Hb drift, unsure of clinical significance, HD stable, DAKOTA outputs reassuring, trend
-- NPO, IVF, NGT to suction
-- Pain control: DC ASSEMBLER WATCH TRAIN, Tylenol, Dilaudid PRN, hold on Toradol for now with Hb drift
-- Abx: Zosyn
-- Stop bowel medications
-- Trend labs
Subjective Data
-
Date of Service: January 05, 2024
Continues to feel uncomfortable, persistent abdominal pain, stable from yesterday. Mild nausea. No fevers. No ambulation.
Objective Data
-
Intake and Output
01/04/24 01/05/24 01/06/24
06:59 06:59 06:59
Intake Total 2095 / 2255 4010 / 4170 750 / 750
Output Total 1185 / 1245 1285 / 1285 405 / 405
Balance 910 / 1010 2725 / 2885 345 / 345
Intake:
Oral fluids 120 / 120
IV fluids (Total) 1475 / 1635 3680 / 3840 580 / 580
D5/0.45%NaCl 1,000 ml @ 40 mls/ 920 / 960 160 / 160
hr IV .Q24H PRN Rx#:[id number]
Levo 15 / 15
Normosol 500 / 500
Nss 1,000 ml @ 120 mls/hr IV . 960 / 1080 2760 / 2880 420 / 420
Q8H20M CORY Rx#:[id number]
IV piggybacks 620 / 620 330 / 330 50 / 50
Amount instilled into GI Tube ( 0 / 0
Total)
Coke Sump 0 / 0
Output:
Drain Output (Total) 385 / 385 170 / 170
Left Abdomen Cole-Olmos 370 / 370 160 / 160
Left Lower Sacrum Cole-Olmos 15 / 15 10 10
A Placed in IR
Gastrointestinal tube output ( 200 / 200 350 / 350
Total)
Coke Sump 200 / 200 350 / 350
Urine, Calles 600 / 660 765 / 765 405 / 405
Other:
Number of approximated MODERATE 2
amounts of urine
Vital Signs
Temp Pulse Resp BP Pulse Ox
98.8 F 77 16 116/51 98
01/05/24 08:00 01/05/24 10:12 01/05/24 10:12 01/05/24 10:12 01/05/24 10:12
Lab Results
01/05/24 09:52
01/05/24 03:06
Calcium 7.6 mg/dl (8.4-10.2) L 01/05/24 03:06
Magnesium 2.1 mg/dl (1.6-2.3) 01/05/24 03:06
Total Bilirubin 0.2 mg/dl (0.2-1.3) 01/04/24 20:50
AST 18 U/L (14-36) 01/04/24 20:50
ALT < 10 U/L (0-35) 01/04/24 20:50
Alkaline Phosphatase 51 U/L (38-126) 01/04/24 20:50
Total Protein 4.0 g/dl (6.3-8.2) L 01/04/24 20:50
Albumin 1.7 g/dl (3.5-5.0) L 01/04/24 20:50
Physical Exam
-
Gen: NAD
Abd: obese, soft, moderate tenderness, moderate distension, non-peritoneal, midline dressing with shadowing, ostomy with viable mucosa in cranial aspect, bowel sweat and minimal gas in appliance, thick minimal stool at os, DAKOTA abd serosang, gluteal
serous
--- NOTE | 2024-01-05 12:52 | PTCARENOTE ---
Addendum entered by Odalis Vega RN 01/05/24 13:21:
pt weak and had a hard time standing for long period of time, kept falling back into bed. see Physical therapy note.
Original Note:
After rounds QUALITY ASSISTANT was D/C. Pt AAOX4 but drowsy. Calles D/C. Physical Therapy ordered and at bedside to get pt OOB. Pt had some difficulty moving from bed to chair with Physical Therapy. [place] noted while moving to chair. pt now low ST with
occasional PVCs. pt Sitting in chair, call richard with in reach, and educated on calling when needing to get out of chair. recheck for HH will be at 1600.
--- NOTE | 2024-01-05 13:41 | CON.ID ---
Consultation
-
Date/Time Consultation Requested: 01/05/2024 09:17
Date/Time Consultation Performed: 01/05/2024 1340
Requesting Provider: Dr. Leo
Performing Provider: Dr. Carter
Reason for Consultation: Sigmoid diverticulitis with abscess
Chief Complaint / Past History
History of Present Illness
Jesica Gonzalez is a 53-year-old female being evaluated at the request of Dr. Leo in regards to sigmoid diverticulitis with abscess. History is obtained from chart review, along with patient interview.
The patient has a significant history of pulmonary aspergillosis and has been on antifungal therapy (voriconazole) and cared for at [facility] by Dr. Walters.
She presents to [facility] on 12/24/2023 following the development of left lower quadrant abdominal discomfort over the prior 5 days. She had had temperatures to 101.5 degrees, and was visiting her mother in the [place] area when the pain
became severe. Emergency room workup revealed a white count of 21,000 and a pelvic abscess was seen on imaging. She was ultimately admitted for IV antibiotics, and underwent IR drainage, and improved through 01/01 although she did not have a bowel
movement for several days. On 01/02 she had increasing abdominal distention and abdominal pain and was ultimately taken to the operating room for an exploratory lap, where a severely distended cecum and transverse colon was noted. She underwent the
creation of an end colostomy. Cultures revealed growth of E. coli and strep species, and Infectious Diseases is asked to comment upon further antimicrobial therapy.
At this time she notes ongoing abdominal discomfort. She has not recently been febrile. She was noted to have a marked increase in her white count yesterday, but it has improved today.
Past History
Additional Past Medical History:
Pulmonary aspergillosis
Diverticulosis/diverticulitis
Anxiety/depression
Steroid-induced psychosis
GERD
Additional Past Surgical History:
C5-6 fusion
Ankle surgery
Allergy History:
No Known Allergies Allergy (Unverified 12/24/23 15:13)
Medications Reviewed: Yes
Current Antibiotics:
Zosyn 3.375 g IV every 6 hours
Voriconazole 200 mg p.o. every 12 hours
Social History
Tobacco: Non-Smoker
Alcohol: None
Drug: None
Personal: Single
Living: Alone
Employment: Employed
Family History
Family History: Not Pertinent
Review of Systems
Vital Signs
Temp Pulse Resp BP Pulse Ox
98.8 F 77 14 116/51 97
01/05/24 11:36 01/05/24 10:12 01/05/24 12:00 01/05/24 10:12 01/05/24 12:00
Physical Exam
Physical Exam
Constitutional: No Acute Distress, Comfortable and Non-toxic
Head: Normocephalic and Other (NG tube to suction.)
Eyes: Pupils Equal, Pupils Round, No Conjunctival Hemorrhage and Sclera Anicteric
Oral: No Thrush and No Ulcers
Cardiovascular: S1/S2; Negative S3/S4
Pulmonary: Clear; Negative Wheezes, Rales or Rhonchi
Gastrointestinal: Soft, Tender, Non Distended, Decreased Bowel Sounds and Other (Ostomy in place.)
Genito-Urinary: Negative Calles
Extremities: Negative Edema, Cyanosis or Erythema
Musculoskeletal: Negative Joint Swelling or Joint Effusion
Skin: Warm and Dry; Negative Rash or Jaundice
Neurological: Awake and Alert
Psychological: Calm
.
Lab / Diagnostic Study Results
01/05/24 03:06
Abs Immat Gran (auto) 0.1 10^3/uL (0-0.05) H 12/30/23 06:34
Absolute Neuts (auto) 4.7 10^3/uL (1.4-6.5) 12/30/23 06:34
Absolute Lymphs (auto) 1.6 10^3/uL (1.2-3.4) 12/30/23 06:34
Absolute Monos (auto) 0.8 10^3/uL (0.1-0.6) H 12/30/23 06:34
Absolute Basos (auto) 0.0 10^3/uL (0-0.2) 12/30/23 06:34
Immature Gran % 0.8 % (0-0.5) H 12/30/23 06:34
Neutrophils % 62.8 % (42.2-75.2) 12/30/23 06:34
Lymphocytes % 21.4 % (20.5-51.1) 12/30/23 06:34
Monocytes % 11.1 % (1.7-9.3) H 12/30/23 06:34
Eosinophils % 3.6 % (0-6) 12/30/23 06:34
Basophils % 0.3 % (0-2) 12/30/23 06:34
PT 21.0 Sec (11.4-14.6) H 01/03/24 21:17
INR 1.83 01/03/24 21:17
Lactic Acid Cancelled 01/04/24 09:00
Microbiology Results
Micro:
12/26/23 14:43 Blood Culture - Final
Blood/Venous No Growth - Final Report
12/26/23 12:59 Blood Culture - Final
Blood/Venous No Growth - Final Report
12/25/23 17:30 Wound Culture - Final
Abscess Escherichia coli
Escherichia coli#2
Streptococcus species
Group F Streptococcus
Gram Stain - Final
Imaging:
01/03/2024 CT abdomen/pelvis: Markedly decreased posterior true pelvis abscess in comparison to prior pre-op chest drainage study with pigtail drainage catheter seen in the soft tissues of the left posterior true pelvis. Massively distended right
colon including cecum (cecum measuring up to 12 cm) with marked maximal colonic stool as well as gaseous distention of transverse and proximal descending colon, moderate stool with distention of the distal descending and sigmoid colon, limited in
evaluation without oral contrast opacification. Thickening Of the wall of the distal descending and proximal sigmoid colon which could represent colitis or diverticulitis. Partially obstructing distal colonic mass with inflammation cannot be
excluded. No free air. Please see full dictation for additional detail.
Assessment / Plan
Diverticulitis
Diverticular abscess status post IR drainage
S/p exploratory lap, colostomy (01/03/2024)
Leukocytosis
Pulmonary aspergillosis; on Vfend
Anxiety/depression
Steroid-induced psychosis
GERD
Recommendations:
Continue with Zosyn for the present.
Monitor white count and temperature curve.
Continue with voriconazole also. Will attempt to discuss case with outpatient ID physician. Will discuss with pharmacy regarding any need to change to IV route. If so, either can continue with IV voriconazole, or change to micafungin.
[2024-01-05] MEDS: DUONEB 3 ML INH ×2 (14:00→20:31)
--- NOTE | 2024-01-05 15:01 | CM ---
CM following re: discharge planning.
Reviewed pt's chart, met with pt.
PT and OT updated evaluations noted - SNF level of care recommended.
CM discussed it with the pt, pt expressed no interest to discuss next level of care today, stated she is very weak and she preferred to return back to her mother's house and to stay with mother instead of going back to her house in [place].
CM will re-visit the pt when pt is more stable to discuss her discharge plan options.
D/C plan: SNF vs home to mother's house with [facility].
CM will follow with discharge plan updates as hospitalization progresses
[2024-01-05] MEDS: DILAUDID 0.5 MG IV ×2 (15:09→18:58)
--- NOTE | 2024-01-05 16:00 | PTCARENOTE ---
pt c/o pain, pt was assisted back into bed pivot assist x2. PRN meds given see MAR. no other changes at this time. call richard in reach.
[2024-01-05 16:26] LABS: Hematocrit 21.7 % (37.0-47.0); Mean Corp Hgb Conc. 31.8 g/dL (33.0-37.0); Mean Corpuscular Hgb 29.7 pg (27.0-31.0); Mean Corpuscular Volume 93.5 fL (81.0-99.0); Mean Platelet Volume 8.8 fL (7.4-10.4); Platelet Count 267 10^3/uL (130-400); Red Blood Cell Count 2.32 10^6/uL (4.20-5.40); Red Cell Dist. Width 15.6 % (11.5-14.5); White Blood Cell Count 14.2 10^3/uL (4.8-10.8)
[2024-01-05 16:33] LABS: Hemoglobin 6.9 g/dL (12.0-16.0)
[2024-01-05] MEDS: SINGULAIR 10 MG PO (17:51)
[2024-01-05] MEDS: FLEXERIL 5 MG PO (17:51)
[2024-01-05] MEDS: LOVENOX SC (17:55)
[2024-01-05 18:03] LABS: Hematocrit 24.5 % (37.0-47.0); Hemoglobin 7.7 g/dL (12.0-16.0); Mean Corp Hgb Conc. 31.4 g/dL (33.0-37.0); Mean Corpuscular Hgb 29.2 pg (27.0-31.0); Mean Corpuscular Volume 92.8 fL (81.0-99.0); Mean Platelet Volume 8.9 fL (7.4-10.4); Platelet Count 318 10^3/uL (130-400); Red Blood Cell Count 2.64 10^6/uL (4.20-5.40); Red Cell Dist. Width 15.6 % (11.5-14.5); White Blood Cell Count 15.6 10^3/uL (4.8-10.8)
[2024-01-05] MEDS: FLEXBUMIN 100 IV (18:56)
--- NOTE | 2024-01-05 19:39 | PTCARENOTE ---
rec'd patient. sister at bedside. arousable to voice, oriented x3. SR on monitor. on 4L NC, denies SOB. diminished breath sounds. NGT to LIS. midline incision dressing with additional sanguinous drainage noted, outlined for reference. DAKOTA drains x2 -
dressings C/D/I. colostomy with small amt of brown liquid stool, stoma dusky/red and budded. purewick in place. pt repositioned. IVF infusing, albumin ordered and hung. pt c/o L abdominal pain - PRN dilaudid given. call richard within reach, questions
answered, care ongoing.
[2024-01-05] MEDS: SYMBICORT 160/4.5 MCG INHALER 2 PUFF INH (20:30)
[2024-01-05] MEDS: DESYREL 200 MG PO (20:51)
[2024-01-05] MEDS: DEPAKOTE ER (24 HR RELEASE) 500 MG PO (20:51)
[2024-01-05] MEDS: DILAUDID 1 MG IV (22:07)
--- NOTE | 2024-01-05 23:34 | PTCARENOTE ---
systems reviewed. CHG bath, oral care, new purewick placed. call richard within reach, care ongoing.
[2024-01-06] VITALS (29 sets, daily range): BP systolic 100–159; BP diastolic 38–97; BMI 29.5
[2024-01-06] MEDS: ZOSYN 50 IV ×4 (01:12→20:25)
[2024-01-06] MEDS: DILAUDID 1 MG IV ×4 (03:35→22:39)
[2024-01-06 03:59] LABS: % Basophils 0.1 % (0-2); % Eosinophils 0.1 % (0-6); % Immature Granulocytes 0.5 % (0-0.5); % Lymphocytes 6.1 % (20.5-51.1); % Monocytes 2.3 % (1.7-9.3); % Neutrophils 90.9 % (42.2-75.2); Absolute Immature Granulocytes 0.1 10^3/uL (0-0.05); Absolute Lymphocytes 0.7 10^3/uL (1.2-3.4); Absolute Monocytes 0.3 10^3/uL (0.1-0.6); Absolute Neutrophils 10.9 10^3/uL (1.4-6.5); Hematocrit 21.7 % (37.0-47.0); Mean Corp Hgb Conc. 31.3 g/dL (33.0-37.0); Mean Corpuscular Hgb 29.2 pg (27.0-31.0); Mean Corpuscular Volume 93.1 fL (81.0-99.0); Mean Platelet Volume 9.1 fL (7.4-10.4); Nucleated Red Blood Cells % 0 %; Platelet Count 280 10^3/uL (130-400); Red Blood Cell Count 2.33 10^6/uL (4.20-5.40); Red Cell Dist. Width 15.6 % (11.5-14.5)
[2024-01-06 04:08] LABS: Hemoglobin 6.8 g/dL (12.0-16.0)
[2024-01-06 04:23] LABS: Blood Urea Nitrogen 21 mg/dl (7-17); Calcium 8.5 mg/dl (8.4-10.2); Carbon Dioxide 32 mmol/L (22-30); Chloride 100 mmol/L (98-107); Estimated Creatinine Clearance 107 ml/min; Glucose 90 mg/dl (70-99); Magnesium 2.1 mg/dl (1.6-2.3); Phosphorus 2.8 mg/dl (2.5-4.5); Potassium 4.4 mmol/L (3.5-5.1); Sodium 137 mmol/L (135-145); eGFR > 60.00
--- NOTE | 2024-01-06 04:52 | PTCARENOTE ---
Addendum entered by Mireya Ng RN 01/06/24 05:40:
ICU CEMETERY WORKERS SUPERVISOR obtained consent for blood, placed in chart.
Original Note:
systems reviewed. AM labs sent, Hgb 6.8, blood type confirmation sent, 1u PRBC ordered. pt did not void overnight, straight cath'd this AM, purewick replaced. SR on monitor. colostomy with moderate amt of liquid brown stool this AM. pt repositioned.
care ongoing.
[2024-01-06] MEDS: NSS (PRESERVATIVE FREE) 10 ML IV (07:37)
[2024-01-06] MEDS: PROTONIX IV 40 MG IV (07:37)
--- NOTE | 2024-01-06 07:39 | PTCARENOTE ---
Received pt sitting up 30 degrees in bed. Left FA IV infiltrated. IVF on hold until IV access obtained. Right FA IV with PRBC's infusing, IV site infiltrated as well. Right hand #24g intima flushed. IV team notified for IV access to infuse the
remainder of blood. IVF now infusing via right hand Intima. Pt is aware of the plan for IV access. Good peripheral pulses. Trace anasarca. Skin is pale, poor capillary refill in her U/E's. 4 liters nasal cannula, pulse ox 96-97%, on room air she is
86%. She removed her oxygen to blow her nose. Moist non-productive cough. Splinting lower abdomen when she coughs. Pillow provided to splint, minimizing pain with coughing. Poor inspiratory effort. Dim breath sounds. RR 27 and shallow breathing. No
BSx4, however loose brown stool in colostomy. [place] moist & dusky. Right nare [place] sump to LIWS for green bilious drainage. Unable to auscultate bowel sounds. Dr. Rosado on the unit and clarified PO orders for her medications is ok, he is also aware
she put out 400ml's from her colostomy and has minimal drainage from her [place] sump. Left abdominal DAKOTA drain with cm drainage to bulb suction. Left lateral abdominal DAKOTA drain intact. Midline aquacel dressing with bloody drainage marked. C/O
abdominal discomfort. Knee-hi scd's placed on to. She was informed that she would be getting out of bed today. She verbalized her understanding. IV team placed right FA #20g catheter and left FA#22g IV catheter. Blood now infusing via right FA#22g
protective catheter. Safe environment maintained.
[2024-01-06] MEDS: SYMBICORT 160/4.5 MCG INHALER 2 PUFF INH ×2 (07:45→19:47)
[2024-01-06] MEDS: DUONEB 3 ML INH ×3 (07:45→19:47)
--- NOTE | 2024-01-06 07:50 | W.PN.HOSP.TC ---
Today's Communication/Plan
-
see bold
Assessment / Plan
Assessment / Plan
Gen: remains NAD, Awake and alert
Eyes: EOMI, PERRLA, no scleral icterus.
Neck: supple.
CV: continues to remain RRR, +S1/S2, no m/r/g.
Resp: CTAB anteriorly, no rales, wheezes, or rhonchi.
Abd: +BS, soft, mild tenderness to light palpation, ND
Skin: No rashes.
Neuro: CN 2-12 intact, non-focal.
Psych: Normal mood and affect.
12/26/23 14:43 Blood/Venous Blood Culture - Final
No Growth - Final Report
12/26/23 12:59 Blood/Venous Blood Culture - Final
No Growth - Final Report
12/25/23 17:30 Abscess Wound Culture - Final
Escherichia coli
Escherichia coli#2
Streptococcus species
Group F Streptococcus
12/25/23 17:30 Abscess Gram Stain - Final
CT A/P 12/24/23:
1. Severe sigmoid diverticulitis with large complex pericolonic abscess in this region as described.
2. Probable chronic mild infectious/inflammatory bronchitis/bronchiolitis in the lung bases.
CT A/P 01/03/24: Markedly decreased posterior true pelvis abscess in comparison to prior pre-op chest drainage study with pigtail drainage catheter seen in the soft tissues of the left posterior true pelvis. Massively distended right colon including
cecum (cecum measuring up to 12 cm) with marked maximal colonic stool as well as gaseous distention of transverse and proximal descending colon, moderate stool with distention of the distal descending and sigmoid colon, limited in evaluation without
oral contrast opacification. Thickening Of the wall of the distal descending and proximal sigmoid colon which could represent colitis or diverticulitis. Partially obstructing distal colonic mass with inflammation cannot be excluded. No free air.
Sigmoid diverticulitis with abscess:
-h/o diverticulosis/diverticulitis
-s/p abscess drainage 12/25/23 by IR
-with findings of massively distended right colon including the cecum on CT scan of the abdomen pelvis on January 03, 2024 the patient was taken to the OR for Exploratory laparotomy, takedown splenic flexure, creation end colostomy, omentectomy
-cont Zosyn as per ID
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
-NGT removed 01/06/24AM
Acute blood loss anemia:
-transfuse 1U pRBCs
-hold Lovenox
Other problems:
h/o pulmonary Aspergillus: since Apr 2023. cont Vfend.
Hyperkalemia, resolved
HLD
GERD: cont PPI
Anxiety/depression: Continue Seroquel/Trazodone/Prozac/Depakote
Discussed with Dr. Ernst and RN.
FULL/SCDs
Anticipated Discharge: > 48 hours
Subjective/Interval History
-
Date of Service: January 06, 2024
Still with abdominal pain.
Objective Data
-
Labs:
Laboratory Results
01/06/24
03:42
WBC 12.0 H
Hgb 6.8 L*
Hct 21.7 L
Plt Count 280
Sodium 137
Potassium 4.4
Chloride 100
Carbon Dioxide 32 H
BUN 21 H
Creatinine 0.7
Glucose 90
Calcium 8.5
Vital Signs:
Vital Signs
Temp Pulse Resp BP Pulse Ox
99.4 F 85 27 121/49 97
01/06/24 07:38 01/06/24 07:47 01/06/24 07:47 01/06/24 07:30 01/06/24 07:47
I&O
01/05/24 01/06/24 01/07/24
06:59 06:59 06:59
Intake Total 4010 / 4170 2685 / 2765 130 / 130
Output Total 1285 / 1285 2525 / 2525
Balance 2725 / 2885 160 / 240 130 / 130
[2024-01-06] MEDS: ASPIR LOW (ENTERIC COATED) 81 MG PO (08:17)
[2024-01-06] MEDS: PROZAC 40 MG PO (08:17)
[2024-01-06] MEDS: SEROQUEL 50 MG PO ×2 (08:17→20:26)
[2024-01-06] MEDS: VITAMIN D3 (cholecalciferol) 25 MCG PO (08:17)
--- NOTE | 2024-01-06 08:38 | W.PN.ID1 ---
Date of Service
Date of Service: January 06, 2024
Today's Communication
Continue antibiotics.
Assessment / Plan
Diverticulitis
Diverticular abscess status post IR drainage
S/p exploratory lap, colostomy (01/03/2024)
Leukocytosis
- improving
Hx Pulmonary aspergillosis; on Vfend
Anxiety/depression
Steroid-induced psychosis
GERD
Recommendations:
Continue with Zosyn for the present.
Monitor white count and temperature curve.
Continue with voriconazole.
- Will attempt to discuss case with outpatient ID physician. (Dr. Austin)
- Pt still with NG in place, but currently clamped, and possible removal today.
����������������������������������������������������������
Chief Complaint
-: Leukocytosis and Other (Diverticulitis; diverticular abscess)
Subjective / Review of Systems
Patient seen and examined. No significant changes overnight.
Vital Signs / Physical Exam
Vital Signs
Vital Signs
Temp Pulse Resp BP Pulse Ox
99.4 F 85 27 121/49 97
01/06/24 07:38 01/06/24 07:47 01/06/24 07:47 01/06/24 07:30 01/06/24 07:47
Physical Exam
Constitutional: Comfortable and Non-toxic
Head: Other (NG tube in place; currently clamped.)
Eyes: No Conjunctival Hemorrhage and Sclera Anicteric
Cardiovascular: S1/S2; Negative S3/S4
Pulmonary: Clear and Non Labored
Gastrointestinal: Soft, Non Distended, Decreased Bowel Sounds and Other (DAKOTA in place)
Genito-Urinary: Other (PureWick in place.)
Extremities: Negative Edema, Cyanosis or Erythema
Skin: Warm and Dry; Negative Rash or Jaundice
Wound: Other (Abdominal dressing in place with mild strikethrough.)
Neurological: Awake and Alert
Psychological: Calm
Objective Data
Lab Data
Lab Results
01/06/24 03:42
01/06/24 03:42
PT 21.0 Sec (11.4-14.6) H 01/03/24 21:17
INR 1.83 01/03/24 21:17
APTT 33.8 Sec (23.4-35.0) 01/03/24 21:17
Estimated Creat Clear 107 ml/min 01/06/24 03:42
Lactic Acid Cancelled 01/04/24 09:00
Total Bilirubin 0.2 mg/dl (0.2-1.3) 01/04/24 20:50
AST 18 U/L (14-36) 01/04/24 20:50
ALT < 10 U/L (0-35) 01/04/24 20:50
Alkaline Phosphatase 51 U/L (38-126) 01/04/24 20:50
Most recent labs reviewed.
Micro Results:
12/26/23 14:43 Blood Culture - Final
Blood/Venous No Growth - Final Report
12/26/23 12:59 Blood Culture - Final
Blood/Venous No Growth - Final Report
12/25/23 17:30 Wound Culture - Final
Abscess Escherichia coli
Escherichia coli#2
Streptococcus species
Group F Streptococcus
Gram Stain - Final
Wound/abscess/other Cult Final 12/28/23-0821
Many 1st strain Escherichia coli
Few 2nd strain Escherichia coli
Many Streptococcus species of two morphotypes
Moderate Group F Streptococcus*
1. Escherichia coli
M.I.C. RX
--------- ---
Amoxicillin/Potas. Clavulanate 16/8 I
Ampicillin >16 R
Ampicillin/Sulbactam >16/8 R
Cefazolin >16 R
Cefepime <=2 S
Ceftazidime <=1 S
Ceftriaxone <=1 S
Ertapenem <=0.5 S
Ciprofloxacin <=0.25 S
Gentamicin >8 R
Levofloxacin <=0.5 S
Meropenem <=1 S
Piperacillin/Tazobactam <=16 S
Tobramycin 8 I
Trimethoprim/Sulfamethoxazole >38 R
2. Escherichia coli#2
M.I.C. RX
--------- ---
Amoxicillin/Potas. Clavulanate <=8/4 S
Ampicillin >16 R
Ampicillin/Sulbactam >16/8 R
Cefazolin 16 R
Cefepime <=2 S
Ceftazidime <=1 S
Ceftriaxone <=1 S
Ertapenem <=0.5 S
Ciprofloxacin <=0.25 S
Gentamicin <=4 S
Levofloxacin <=0.5 S
Meropenem <=1 S
Piperacillin/Tazobactam <=16 S
Tobramycin <=4 S
Trimethoprim/Sulfamethoxazole > R
Imaging:
01/03/2024 CT abdomen/pelvis: Markedly decreased posterior true pelvis abscess in comparison to prior pre-op chest drainage study with pigtail drainage catheter seen in the soft tissues of the left posterior true pelvis. Massively distended right
colon including cecum (cecum measuring up to 12 cm) with marked maximal colonic stool as well as gaseous distention of transverse and proximal descending colon, moderate stool with distention of the distal descending and sigmoid colon, limited in
evaluation without oral contrast opacification. Thickening Of the wall of the distal descending and proximal sigmoid colon which could represent colitis or diverticulitis. Partially obstructing distal colonic mass with inflammation cannot be
excluded. No free air. Please see full dictation for additional detail.
--- NOTE | 2024-01-06 09:08 | W.PN.INTV ---
Addendum entered and electronically signed by Shahriar Tanner MD 01/07/24 09:04:
Of note she has a pulmonary and infectious disease doctor that she says she follows at [place], [place]. I advised her to follow-up with those specialists when she is finally discharged from here. She acknowledged this. I answered all of
her questions.
Original Note:
Today's Communication / Plan
Recommendations
Continue Zosyn
ID consulted - recs appreciated
Continue vori given she has Hx of pulmonary aspergillosis
Pain control
Trial of Flexeril for her fidgety limbs
MAP>65
Up OOB as tolerated
Patient is transferred now out of ICU to IMU. Scientific Editor/Pulmonary service will now sign off. Please reconsult if there are any additional questions/concerns, or if patient's respiratory status deteriorates.
Assessment
-
Assessment: 53-year-old female with past medical history of recurrent diverticulitis, pulmonary aspergillosis, hyperlipidemia, anxiety/depression, and GERD who presents with abdominal pain. She apparently was recently treated for diverticulitis in
October 2023 with Augmentin at [facility] in [place] where she resides. She also reported that she was treated this month for ongoing fungal lung infection with Aspergillus and also given additional antibiotics but unknown what names
of these medications are. She developed a fever about 5 days ago and continues to be on Augmentin for last 3 days. She was visiting her mother in [place] prior to arrival when the pain in her left lower quadrant became severe so she came here
to the hospital for further care. She was afebrile in the ER to 98.6 �F, 79 pulse rate, breathing at 16 breaths/min, normotensive at 133/77 and saturating 100% on room air. Labs showed leukocytosis to 21.2, mild anemia to 11.5, mild hyponatremia
to 134, mild hyperkalemia to 5.6, and negative lipase of <10. CT A/P on admission showed severe sigmoid diverticulitis with large pericolonic abscess. She was given pain medications in the ER + Levaquin + IV fluids with NS x1L, and admitted to the
hospitalist service with general surgery consulted and antibiotics were started with Zosyn. She underwent IR CT-guided drainage on 12/24 with 170 cc of pale green purulent material seen - this later grew E. coli and group F Streptococcus. Patient
continues to be managed on the floor and was having issues with constipation. Repeat CT A/P performed on 01/02 showing decrease size in the abscess with pigtail drainage catheter seen in place, with massively distended right colon including the
cecum with stool distention and continued suspected distal descending colon/sigmoid diverticulitis. Given patient's worsening pain with distention and no flatus or BM in about 4 days, patient underwent exploratory laparotomy with splenic flexure
takedown, creation of end colostomy and omentectomy on 01/03/2024, and transferred to the ICU postoperatively. There was 150 cc of EBL and no immediate complications. Critical care services now consulted for additional management/recommendations.
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
Impression:
#Sigmoid diverticulitis s/p exploratory laparotomy with splenic flexure takedown, end colostomy creation and omentectomy � POD #3
#Sigmoid diverticulitis c/b large pericolonic abscess s/p IR CT-guided drainage on 12/24 with purulent fluid growing E. coli + group F Streptococcus
#Constipation
#Leukocytosis
#Acute on chronic anemia (unknown baseline but she has been between 8.5�11.5g/dL since admission)
#Lower lobe pulmonary bronchiectasis � likely due to her history of chronic pulmonary aspergillosis diagnosed in fall 2022
#History of pulmonary aspergillosis on voriconazole
Plan:
- Postoperative care as per colorectal surgery
- Pain control
- Continue with antibiotics with Zosyn - ID consulted
- She takes Breo, DuoNebs TID and budesonide BID prn --> resume DuoNebs and use Symbicort as we do not carry breo (?Hx of asthma)
- She is also on voriconazole for her history of pulmonary aspergillosis
- Clear liquid diet started today, and advance as tolerated - this will be deferred to CRC
- Maintain SpO2 >90-94%
- Maintain MAP>65 with pressors if needed
- Replete electrolytes with K>4, Mg>2
- Maintain euglycemia with goal BG 140-180
- Trend Hb and transfuse if needed to keep Hb>7g/dL, plt>50k
- prn nebulized bronchodilators
- Incentive spirometer once abd pain has improved
- Given flexeril as needed for muscle spams/fidgety limbs
- DVT ppx: LMWH
Patient is transferred now out of ICU to IMU. Scientific Editor/Pulmonary service will now sign off. Thank you for allowing us to be involved in the care of this patient. Please reconsult if there are any additional questions/concerns, or if patient's
respiratory status deteriorates.
Total time spent today was 35 minutes for this encounter. Time includes reviewing laboratory test/imaging results, reviewing pertinent medical records, obtaining and reviewing medical history, performing an appropriate exam, ordering medications,
tests and procedures. Time also includes documentation of this encounter, coordinating patient care and communicating with other healthcare professionals. Total time does not include separately billed tests performed on this date of service.
Data:
CXR 01-03-2024: Small left pleural effusion with associated probable atelectasis.
CT Abd/Pelvis with IV/PO Contrast 01-03-2024:
Markedly decreased posterior true pelvis abscess in comparison to prior pre-op chest drainage study with pigtail drainage catheter seen in the soft tissues of the left posterior true pelvis.
Massively distended right colon including cecum (cecum measuring up to 12 cm) with marked maximal colonic stool as well as gaseous distention of transverse and proximal descending colon, moderate stool with distention of the distal descending and
sigmoid colon, limited in evaluation without oral contrast opacification. Thickening Of the wall of the distal descending and proximal sigmoid colon which could represent colitis or diverticulitis. Partially obstructing distal colonic mass with
inflammation cannot be excluded. No free air.
Subjective Dataa
Subjective Data
Date of Service:
Date of Service: January 06, 2024
Chief Complaint: Scientific Editor Follow Up
Subjective:
Seen and evaluated this morning. Afebrile overnight. Still has abdominal pain. No fevers, chills, shortness of breath reported. She is on 4 L/min nasal cannula saturating 97%, heart rate 90 and BP 135/62. Being transfused 1 unit this morning of
PRBC given Hb is 6.8. No obvious signs of bleeding reported.
Review of Systems
General: Other (Negative unless mentioned above)
Objective Data
Data Reviewed
Vital Signs / I&O / Oxygen:
Vital Signs
Temp Pulse Resp BP Pulse Ox
98.6 F 89 17 132/55 97
01/06/24 08:43 01/06/24 09:00 01/06/24 09:00 01/06/24 09:00 01/06/24 09:00
Intake and Output
01/05/24 01/06/24 01/07/24
06:59 06:59 06:59
Intake Total 4010 / 4170 2685 / 2765 730 / 730
Output Total 1285 / 1285 2525 / 2525
Balance 2725 / 2885 160 / 240 730 / 730
SaO2 97
Nasal Cannula flow liters per 4
minute
Physical Exam
General: Respiratory Distress (Negative) and Chills (Negative)
HEENT: Normocephalic and Anicteric
Cardiovascular: S1-S2 and Peripheral Edema (Negative)
Respiratory: Wheeze (Negative), Crackles (Negative), Rhonchi (Negative), Non-Labored Respirations and Other (Reduced breath sounds due to pain during inspiration)
GI: Soft, Non Distended, Tender and Other (Vertebral bandage; colostomy seen in LLQ with dark bloody fluid seen in colostomy bag)
Neurology: Awake and Alert
Skin: Warm, Dry and Other (Fidgety movements seen in the arms and legs)
Labs/Micro/Reports
Lab Data
01/06/24 03:42
01/06/24 03:42
--- NOTE | 2024-01-06 09:29 | W.PN.UPDATE ---
Update Note
Progress Note Update
DC NGT, start clears
DC ASA
DC heparin
SCDs in place
anemia --> 1 uPRBC given
check coags
heaven removed periumbilical, fat necrosis vs pus drainage, packed with gauze
full note to follow
[2024-01-06] MEDS: COLACE PO (10:38)
[2024-01-06] MEDS: VFEND 200 MG PO ×2 (11:15→22:17)
[2024-01-06] MEDS: DILAUDID 0.5 MG IV ×2 (12:18→20:38)
[2024-01-06] MEDS: NSS 1000 IV (14:39)
--- NOTE | 2024-01-06 14:45 | CM ---
CM following re: discharge planning.
Reviewed pt's chart, met with pt. Per chart review, NGT will be removed today, starts clear liquids, continue supportive care.
PT and OT updated evaluations noted - SNF level of care recommended.
Pt still not ready to discuss next level of care, stated she is very weak and she preferred to return back to her mother's house and to stay with mother instead of going back to her house in [place].
CM will re-visit the pt when pt is more stable to discuss her discharge plan options.
D/C plan: SNF vs home to mother's house with [facility].
CM will follow with discharge plan updates as hospitalization progresses
[2024-01-06 16:15] LABS: INR 1.21; PT 15.3 Sec (11.4-14.6)
[2024-01-06 16:16] LABS: APTT 35.6 Sec (23.4-35.0)
[2024-01-06] MEDS: FLEXERIL 5 MG PO (17:11)
[2024-01-06] MEDS: SINGULAIR 10 MG PO (17:11)
--- NOTE | 2024-01-06 18:49 | W.PN.GS2 ---
Today's Communication / Plan
-
see below
Assessment / Plan
-
Assessment: 53 yo female with recent aspergillus pneumonia on O2 and on steroids presenting with complicated diverticulitis with large pelvic abscess
S/p IR drainage 12/25/2023.
S/p exploratory laparotomy with takedown of splenic flexure, creation end colostomy with omentectomy POD#3.
Clinically stable, signs of objective improvement with decreasing WBC, passage of flatus and stool per stoma.
Hb drift, unsure of clinical significance, HD stable, DAKOTA outputs reassuring, trend
DC NGT, start clears
DC ASA
DC heparin
SCDs in place
anemia --> 1 uPRBC given
check coags --> OK
-- Pain control: Tylenol, Dilaudid PRN, hold on Toradol for now with Hb drift
-- Abx: Zosyn
-- Stop bowel medications
-- Trend labs
Subjective Data
-
Date of Service: January 06, 2024
AFVSS, pain controlled, voiding with purewick, stoma with brown pastey stool,
Objective Data
-
Intake and Output
01/05/24 01/06/24 01/07/24
06:59 06:59 06:59
Intake Total 4010 / 4170 2685 / 2765 2145 / 2145
Output Total 1285 / 1285 2525 / 2525 705 / 705
Balance 2725 / 2885 160 / 240 1440 / 1440
Intake:
Oral fluids 120 / 120 800 / 800
IV fluids (Total) 3680 / 3840 2260 / 2340 960 / 960
D5/0.45%NaCl 1,000 ml @ 40 mls/ 920 / 960 220 / 220
hr IV .Q24H PRN Rx#:[id number]
Nss 1,000 ml @ 80 mls/hr IV . 2760 / 2880 2040 / 2120 960 / 960
[id number] Rx#:[id number]
IV piggybacks 330 / 330 300 / 300 100 / 100
Amount instilled into Drain ( 5 5 5
Total)
Left Lower Sacrum Cole-Olmos 5 5
A Placed in IR
Amount instilled into GI Tube (
Total)
[place] Sump
Blood Product Amount Infused ( 0 / 0 250 / 250
mL)
Packed Rbc Leukoreduced Unit 0 / 0 250 / 250
[id number]
Output:
Liquid stool amount 525 / 525 75 / 75
Colostomy 525 / 525 75 / 75
Drain Output (Total) 170 / 170 75 / 75 30 / 30
Left Abdomen Cole-Olmos 160 / 160 30 / 30 0 / 0
Left Lower Sacrum Cole-Olmos 10 / 10 45 / 45 30 / 30
A Placed in IR
Gastrointestinal tube output ( 350 / 350 550 / 550 175 / 175
Total)
[place] Sump 350 / 350 550 / 550 175 / 175
Urine, Calles 765 / 765 525 / 525
Urine, Voided 425 / 425
Straight cath output 850 / 850
Vital Signs
Temp Pulse Resp BP Pulse Ox
98.2 F 92 27 145/61 97
01/06/24 15:09 01/06/24 17:00 01/06/24 17:00 01/06/24 17:00 01/06/24 17:00
Lab Results
01/06/24 03:42
01/06/24 03:42
Calcium 8.5 mg/dl (8.4-10.2) 01/06/24 03:42
Phosphorus 2.8 mg/dl (2.5-4.5) 01/06/24 03:42
Magnesium 2.1 mg/dl (1.6-2.3) 01/06/24 03:42
Total Bilirubin 0.2 mg/dl (0.2-1.3) 01/04/24 20:50
AST 18 U/L (14-36) 01/04/24 20:50
ALT < 10 U/L (0-35) 01/04/24 20:50
Alkaline Phosphatase 51 U/L (38-126) 01/04/24 20:50
Total Protein 4.0 g/dl (6.3-8.2) L 01/04/24 20:50
Albumin 1.7 g/dl (3.5-5.0) L 01/04/24 20:50
Physical Exam
-
Gen: NAD
Abd: soft, approp ttp, dressing saturated - removed; purulent bloody fluid draining from periumbilical region, possibly fat necrosis, several heaven removed in the area, no active bleeding, wound packed with plain dry gauze; IR drain serous,
anterior drain ss, stoma purple/edematous but appears viable and producing brown stool
--- NOTE | 2024-01-06 19:00 | PTCARENOTE ---
Cannot verify vitals prior to 1900, previous shift.
[2024-01-06] MEDS: DESYREL 200 MG PO (22:17)
[2024-01-06] MEDS: DEPAKOTE ER (24 HR RELEASE) 500 MG PO (22:17)
--- NOTE | 2024-01-06 23:22 | PTCARENOTE ---
Received patient AAOx4, following commands, complaining of pain throughout abdomen and back, dilaudid given- see MAR. Normal sinus/sinus tach, patient goes into vent bigeminy with stress (laying flat/turns). BP stable, 100s-140s/40s-60s. Palpable
radial and pedal pulses bilaterally, +1 generalized anasarca. On 4 liters nasal cannula saturating 99%, lung sounds diminished at the bases. Moist, nonproductive cough. Barely audible bowel sounds, very hypoactive. Abdomen soft, obese, tender to
touch. Midline incision closed with heaven, bottom half is packed with an ABD on top, small amount of serosanguineous drainage. DAKOTA drain on left abdomen putting out a small amount of serosanguineous fluid. DAKOTA drain posteriorly putting out scant
serosanguineous drainage, flushed with 5 ml sterile saline as per order. Colostomy putting out brown liquid stool, budded. Right hand #24 and right arm #20 patent, WNL. Left hand #22 patent, WNL. NSS gtt infusing per order. Repositioned, call richard
within reach.
[2024-01-07] VITALS (29 sets, daily range): BP systolic 90–145; BP diastolic 41–82; PULSE 91; O2SAT 94; BMI 30.2
[2024-01-07] MEDS: ZOSYN 50 IV ×4 (02:26→19:44)
[2024-01-07] MEDS: DILAUDID 1 MG IV ×3 (03:38→19:41)
--- NOTE | 2024-01-07 04:28 | PTCARENOTE ---
CHG bath done, new sheets/pad under patient. Patient in a lot of pain when awake, moaning and kicking her feet. PRN dilaudid given. Otherwise patient assessment unchanged from previous.
[2024-01-07] MEDS: NSS 1000 IV ×2 (04:59→16:48)
[2024-01-07] MEDS: DILAUDID 0.5 MG IV ×3 (05:22→23:39)
[2024-01-07 05:52] LABS: Hematocrit 24.6 % (37.0-47.0); Mean Corp Hgb Conc. 32.5 g/dL (33.0-37.0); Mean Corpuscular Hgb 29.5 pg (27.0-31.0); Mean Corpuscular Volume 90.8 fL (81.0-99.0); Mean Platelet Volume 9.1 fL (7.4-10.4); Platelet Count 269 10^3/uL (130-400); Red Blood Cell Count 2.71 10^6/uL (4.20-5.40); Red Cell Dist. Width 14.9 % (11.5-14.5); White Blood Cell Count 14.2 10^3/uL (4.8-10.8)
[2024-01-07 06:14] LABS: Blood Urea Nitrogen 14 mg/dl (7-17); Carbon Dioxide 31 mmol/L (22-30); Chloride 100 mmol/L (98-107); Estimated Creatinine Clearance > 125 ml/min; Glucose 97 mg/dl (70-99); Potassium 4.3 mmol/L (3.5-5.1); Sodium 134 mmol/L (135-145); eGFR > 60.00
[2024-01-07] MEDS: SYMBICORT 160/4.5 MCG INHALER 2 PUFF INH ×2 (07:42→20:00)
[2024-01-07] MEDS: DUONEB 3 ML INH ×3 (07:42→20:00)
[2024-01-07] MEDS: PROTONIX IV 40 MG IV (07:54)
[2024-01-07] MEDS: NSS (PRESERVATIVE FREE) 10 ML IV (07:54)
[2024-01-07] MEDS: SEROQUEL 50 MG PO (07:58)
[2024-01-07] MEDS: VITAMIN D3 (cholecalciferol) 25 MCG PO (07:58)
[2024-01-07] MEDS: PROZAC 40 MG PO (07:58)
--- NOTE | 2024-01-07 08:56 | PTCARENOTE ---
report received, assessments per work list. patient anxious, dyspneic, writhing and crying out in pain. legs very restless. medicated with dilaudid per prn order. after dilaudid, patient more relaxed but remains very anxious. keeps eyes closed.
pressured speech. patient states she has experienced restless legs in the past but is not on any medications outpatient. monitor sr with pvc's. lungs with coarse breath sounds bilaterally, rubs and wheezes. weak cough. abdomen distended, colostomy
in place, moderate amount light brown stool. priscila's to bulb. abdominal dressing in place. moderate amount drainage noted. generalized anasarca. scd removed for patient comfort, making leg movements more pronounced. call richard in hand
--- NOTE | 2024-01-07 09:07 | W.PN.HOSP.TC ---
Today's Communication/Plan
-
see bold
Assessment / Plan
Assessment / Plan
Gen: continues to remain NAD, Awake and alert
Eyes: EOMI, PERRLA, no scleral icterus.
Neck: supple.
CV: continues to remain RRR, +S1/S2, no m/r/g.
Resp: remains CTAB anteriorly, no rales, wheezes, or rhonchi.
Abd: +BS, soft, mild tenderness to light palpation, ND
Skin: No rashes.
Neuro: CN 2-12 intact, non-focal.
Psych: anxious
12/26/23 14:43 Blood/Venous Blood Culture - Final
No Growth - Final Report
12/26/23 12:59 Blood/Venous Blood Culture - Final
No Growth - Final Report
12/25/23 17:30 Abscess Wound Culture - Final
Escherichia coli
Escherichia coli#2
Streptococcus species
Group F Streptococcus
12/25/23 17:30 Abscess Gram Stain - Final
CT A/P 12/24/23:
1. Severe sigmoid diverticulitis with large complex pericolonic abscess in this region as described.
2. Probable chronic mild infectious/inflammatory bronchitis/bronchiolitis in the lung bases.
CT A/P 01/03/24: Markedly decreased posterior true pelvis abscess in comparison to prior pre-op chest drainage study with pigtail drainage catheter seen in the soft tissues of the left posterior true pelvis. Massively distended right colon including
cecum (cecum measuring up to 12 cm) with marked maximal colonic stool as well as gaseous distention of transverse and proximal descending colon, moderate stool with distention of the distal descending and sigmoid colon, limited in evaluation without
oral contrast opacification. Thickening Of the wall of the distal descending and proximal sigmoid colon which could represent colitis or diverticulitis. Partially obstructing distal colonic mass with inflammation cannot be excluded. No free air.
Sigmoid diverticulitis with abscess:
-h/o diverticulosis/diverticulitis
-s/p abscess drainage 12/25/23 by IR
-with findings of massively distended right colon including the cecum on CT scan of the abdomen pelvis on January 03, 2024 the patient was taken to the OR for Exploratory laparotomy, takedown splenic flexure, creation end colostomy, omentectomy
-cont Zosyn as per ID
-IV Dilaudid PRN (was on dilaudid SUPPLY ASSISTANT prior)
-NGT removed 01/06/24AM
Acute blood loss anemia:
-s/p 1U pRBCs
-holding Lovenox
Restless Legs:
-start Requip
-Flexeril PRN (has helped recently)
Other problems:
h/o pulmonary Aspergillus: since Apr 2023. cont Vfend.
Hyperkalemia, resolved
HLD
GERD: cont PPI
Anxiety/depression: Continue Seroquel/Trazodone/Prozac/Depakote. c/s psych for severe anxiety.
Discussed with Drs. Sawant and Belen and RN.
FULL/SCDs (would prefer restart of Lovenox if OK with surgery)
Total time spent on today's encounter was 50 minutes which included time spent in counseling the patient/family regarding diagnosis and treatment plan as listed above, goals of care, and symptom management. Case was discussed with nursing staff,
specialists, and care coordinators/case management. All labs and imaging personally reviewed by me. Remainder the time spent in detailed review of previous records, lab data, imaging, and other medical provider documentation.
Anticipated Discharge: > 48 hours
Subjective/Interval History
-
Date of Service: January 07, 2024
Pt does not offer new complaints.
Objective Data
-
Labs:
Laboratory Results
01/07/24
05:29
WBC 14.2 H
Hgb 8.0 L
Hct 24.6 L
Plt Count 269
Sodium 134 L
Potassium 4.3
Chloride 100
Carbon Dioxide 31 H
BUN 14
Creatinine 0.4 L
Glucose 97
Calcium 8.0 L
Vital Signs:
Vital Signs
Temp Pulse Resp BP Pulse Ox
100.3 F 105 27 113/50 98
01/07/24 07:55 01/07/24 07:50 01/07/24 07:50 01/07/24 03:00 01/07/24 07:50
I&O
01/06/24 01/07/24 01/08/24
06:59 06:59 06:59
Intake Total 2685 / 2765 3210 / 3290 280 / 280
Output Total 2525 / 2525 1290 / 1290
Balance 160 / 240 1920 / 2000 280 / 280
[2024-01-07] MEDS: VFEND 200 MG PO ×2 (09:54→22:48)
--- NOTE | 2024-01-07 10:09 | W.PN.ID1 ---
Date of Service
Date of Service: January 07, 2024
Today's Communication
Continue abx.
Assessment / Plan
Diverticulitis
Diverticular abscess status post IR drainage
S/p exploratory lap, colostomy (01/03/2024)
Leukocytosis
- increase today.
Hx Pulmonary aspergillosis; on prior Vfend as outpatient
Anxiety/depression
Hx steroid-induced psychosis
GERD
Recommendations:
Continue with Zosyn for the present.
Monitor white count and temperature curve.
Continue with outpatient voriconazole.
����������������������������������������������������������
Chief Complaint
-: Leukocytosis and Other (Diverticulitis; diverticular abscess)
Subjective / Review of Systems
Pt. seen / examined. NG
Review of Systems: No Fever, No Chills and Abdominal Pain
Vital Signs / Physical Exam
Vital Signs
Vital Signs
Temp Pulse Resp BP Pulse Ox
100.3 F 81 13 118/53 90
01/07/24 07:55 01/07/24 09:00 01/07/24 09:00 01/07/24 09:00 01/07/24 09:00
Physical Exam
Constitutional: No Acute Distress, Comfortable, Acutely Ill and Non-toxic
Head: Normocephalic
Eyes: No Conjunctival Hemorrhage and Sclera Anicteric
Cardiovascular: S1/S2 and Murmur; Negative S3/S4
Pulmonary: Clear and Non Labored; Negative Wheezes, Rales or Rhonchi
Gastrointestinal: Soft, Tender, Non Distended, Decreased Bowel Sounds and Other (ostomy present)
Extremities: Edema; Negative Cyanosis, Erythema, Splinter Hemorrhage or Venous Insufficiency
Skin: Warm and Dry; Negative Rash or Jaundice
Neurological: Awake and Alert
Psychological: Calm
Objective Data
Lab Data
Lab Results
01/07/24 05:29
01/07/24 05:29
PT 15.3 Sec (11.4-14.6) H 01/06/24 15:22
INR 1.21 01/06/24 15:22
APTT 35.6 Sec (23.4-35.0) H 01/06/24 15:22
Estimated Creat Clear > 125 ml/min 01/07/24 05:29
Lactic Acid Cancelled 01/04/24 09:00
Total Bilirubin 0.2 mg/dl (0.2-1.3) 01/04/24 20:50
AST 18 U/L (14-36) 01/04/24 20:50
ALT < 10 U/L (0-35) 01/04/24 20:50
Alkaline Phosphatase 51 U/L (38-126) 01/04/24 20:50
Most recent labs reviewed.
Micro Results:
12/26/23 14:43 Blood Culture - Final
Blood/Venous No Growth - Final Report
12/26/23 12:59 Blood Culture - Final
Blood/Venous No Growth - Final Report
12/25/23 17:30 Wound Culture - Final
Abscess Escherichia coli
Escherichia coli#2
Streptococcus species
Group F Streptococcus
Gram Stain - Final
Wound/abscess/other Cult Final 12/28/23-0821
Many 1st strain Escherichia coli
Few 2nd strain Escherichia coli
Many Streptococcus species of two morphotypes
Moderate Group F Streptococcus*
1. Escherichia coli
M.I.C. RX
--------- ---
Amoxicillin/Potas. Clavulanate 16/8 I
Ampicillin >16 R
Ampicillin/Sulbactam >16/8 R
Cefazolin >16 R
Cefepime <=2 S
Ceftazidime <=1 S
Ceftriaxone <=1 S
Ertapenem <=0.5 S
Ciprofloxacin <=0.25 S
Gentamicin >8 R
Levofloxacin <=0.5 S
Meropenem <=1 S
Piperacillin/Tazobactam <=16 S
Tobramycin 8 I
Trimethoprim/Sulfamethoxazole >38 R
2. Escherichia coli#2
M.I.C. RX
--------- ---
Amoxicillin/Potas. Clavulanate <=8/4 S
Ampicillin >16 R
Ampicillin/Sulbactam >16/8 R
Cefazolin 16 R
Cefepime <=2 S
Ceftazidime <=1 S
Ceftriaxone <=1 S
Ertapenem <=0.5 S
Ciprofloxacin <=0.25 S
Gentamicin <=4 S
Levofloxacin <=0.5 S
Meropenem <=1 S
Piperacillin/Tazobactam <=16 S
Tobramycin <=4 S
Trimethoprim/Sulfamethoxazole >/38 R
Imaging:
01/03/2024 CT abdomen/pelvis: Markedly decreased posterior true pelvis abscess in comparison to prior pre-op chest drainage study with pigtail drainage catheter seen in the soft tissues of the left posterior true pelvis. Massively distended right
colon including cecum (cecum measuring up to 12 cm) with marked maximal colonic stool as well as gaseous distention of transverse and proximal descending colon, moderate stool with distention of the distal descending and sigmoid colon, limited in
evaluation without oral contrast opacification. Thickening Of the wall of the distal descending and proximal sigmoid colon which could represent colitis or diverticulitis. Partially obstructing distal colonic mass with inflammation cannot be
excluded. No free air. Please see full dictation for additional detail.
Care Review
Plan reviewed with: Physician (Hospitalist)
--- NOTE | 2024-01-07 11:29 | W.PN.GS2 ---
Addendum entered and electronically signed by Ricardo Sawant MD 01/07/24 17:09:
afternoon H&H drifted back down to 6.9
will transfuse with 2 units of pRBCs
repeat H&H in AM
continue to follow
stopping/holding toradol/lovenox until H&H stable
Original Note:
Today's Communication / Plan
-
`
Assessment / Plan
-
Assessment: 53 yo female with recent aspergillus pneumonia on O2 and on steroids presenting with complicated diverticulitis with large pelvic abscess
S/p IR drainage 12/25/2023.
S/p exploratory laparotomy with takedown of splenic flexure, creation end colostomy with omentectomy POD#4.
appears to be a bit narcotized from pain meds
AFVSS - low grade tachy and low grade fevers
midline incision clean and open in area
Plan: reduce narcotic use - given appropriate response to 1 until PRBC yesterday and non bloody surgical drains will start toradol ACT and added tylenol PO
full liquid diet
okay for home PO meds
encourage IS use/pulmonary toilet/PT and OOBTC (okay to ambulate when more interactive)
repeat H&H in PM
if stable also start/resume Lovenox this evening for VTEp/changed to TEDS as pt unable to tolerated SCDs with h/o restless legs
CBC and CMP tomorrow AM
Subjective Data
-
Date of Service: January 07, 2024
pt seen and examined
nursing at bedside with pt who is sitting in chair
sleepy/tired but responds appropriately
currently pain controlled
no nausea
Objective Data
-
Intake and Output
01/06/24 01/07/24 01/08/24
06:59 06:59 06:59
Intake Total 2685 / 2765 3210 / 3290 880 / 880
Output Total 2525 / 2525 1290 / 1290 400 / 400
Balance 160 / 240 1919 480 / 480
Intake:
Oral fluids 120 / 120 800 / 800 480 / 480
IV fluids (Total) 2260 / 2340 1919 400 / 400
D5/0.45%NaCl 1,000 ml @ 40 mls/ 220 / 220
hr IV .Q24H PRN Rx#:[id number]
Nss 1,000 ml @ 80 mls/hr IV . 2039 / 0 1919 400 / 400
[id number] CORY Rx#:[id number]
IV piggybacks 300 / 300 200 / 200
Amount instilled into Drain (
Total)
Left Lower Sacrum Cole-Olmos
A Placed in IR
Amount instilled into GI Tube (
Total)
[place] Sump
Blood Product Amount Infused ( 0 / 0 250 / 250
mL)
Packed Rbc Leukoreduced Unit 0 / 0 250 / 250
[id number]
Output:
Liquid stool amount 525 / 525 275 / 275
Colostomy 525 / 525 275 / 275
Drain Output (Total) 75 / 75 65 / 65
Left Abdomen Cole-Olmos
Left Lower Sacrum Cole-Olmos 45 / 45 55 / 55
A Placed in IR
Gastrointestinal tube output ( 550 / 550 175 / 175
Total)
[place] Sump 550 / 550 175 / 175
Urine, Calles 525 / 525
Urine, Voided 775 / 775 400 / 400
Straight cath output 850 / 850
Vital Signs
Temp Pulse Resp BP Pulse Ox
100.3 F 100 37 119/73 94
01/07/24 07:55 01/07/24 11:00 01/07/24 11:00 01/07/24 11:00 01/07/24 11:00
Lab Results
01/07/24 05:29
01/07/24 05:29
Calcium 8.0 mg/dl (8.4-10.2) L 01/07/24 05:29
Phosphorus 2.8 mg/dl (2.5-4.5) 01/06/24 03:42
Magnesium 2.1 mg/dl (1.6-2.3) 01/06/24 03:42
Total Bilirubin 0.2 mg/dl (0.2-1.3) 01/04/24 20:50
AST 18 U/L (14-36) 01/04/24 20:50
ALT < 10 U/L (0-35) 01/04/24 20:50
Alkaline Phosphatase 51 U/L (38-126) 01/04/24 20:50
Total Protein 4.0 g/dl (6.3-8.2) L 01/04/24 20:50
Albumin 1.7 g/dl (3.5-5.0) L 01/04/24 20:50
Physical Exam
-
NAD AAOx3 sleepy but responsive
ABD: soft, ND, mild TTP
incision dressing changed - SSF on gauze
ostomy appliance with liquid stool and air
surgical DAKOTA - purulence/SSF
IR drain - light SSF
[2024-01-07] MEDS: TORADOL 10 MG IV (11:47)
[2024-01-07] MEDS: REQUIP 0.25 MG PO ×3 (12:11→22:48)
--- NOTE | 2024-01-07 12:34 | PTCARENOTE ---
patient assisted to commode, assist of 2 staff, knees buckling. voided in commode, pivot to chair. forgetful and anxious. states she feels confused and 'seeing things'. pain persists. hospitalist and surgery in. orders received. medications per OCT.
using IS with encouragement. call richard in reach
--- NOTE | 2024-01-07 13:37 | WOUNDNOTE ---
[facility] RN note: Patient s/p colostomy on 01/03/24. Appliance intact without leakage. Small liquid brown stool in pouch. Colostomy teaching folder and ostomy supplies given (Juliette wafer # [id number], Kelly seals and Mcallen pouch # [id number]). Patient
currently sitting in recliner chair. She is interested in her sister in law being included in teaching with appliance change via facetime with her Ipad tablet if possible. Stoma pink and budded. Plan to change appliance tomorrow.
--- NOTE | 2024-01-07 13:59 | CON.MD ---
Consultation - Medical
-
patient seen chart reviewed. case discussed at length with pharmacy and with nursing.t he patient is a 53 year old woman originally admitted for abd pain nausea and was found to have sigmoid abscess /diverticulitis. she has hx of fungal pulmonary
infection (aspergillosis) in the recent past and was rx with antifungal preparations which she continues to take currently. the patient has had two surgical interventions this admit one for drainage of the abscess and afterwards on 01.02 an
exploratory which resulted in colostomy. she has been struggling with pain and nsg is concerned she is receiving opiates to the extent that she is almost encephalopathic. she has a hx of psych illness. at one point dx bipolar but she said this dx
amended to major depression. she was not a great historian today as she is in a lot of pain. she was hospitalized several times the last about a year ago for depression and si. she did not make a suicide attempt but had a plan. she is currently
taking seroquel 50 mg bid prozac 40 mg daily trazodone 200 mg q hs depakote 250/500. she does feel meds help w her depression. she was noted to have restless legs and requip just started o.25 mg tid she has only received one dose and her legs were
moving like mad when i saw her.
past psych hx several psych hosp. long hx of affective illness. patient hosp several times in the past last one year ago. see above there is mention in the chart of steroid induced psychosis details not known
past med hx see above patient w hx hld gerd noted sodium 134 anemia hyperkalemia initially
family hx of psych 'yes'
substance abuse denied
social lacking in detail given patient experiencing much pain and discomfort. patient does have children.
mse alert and oriented in obvious severe physical discomfort. speech soft short phrases. needed significant amount of time to formulate an answer no psychosis mood subdued affect constricted denies si aver intell insight judgment seem ok
dx by hx major depression recurrent severe
recommendations in discussion w pharmacy it appears antifungal medications can inc the blood level of seroquel significantly which may be the cause of restless legs. stopped seroquel for now. also check qtc which can be inc w seroquel. will
cut trazodone in half to 100 mg q hs and make it prn. prozac with trazodone can inc risk of serotonin syndrome. will check depakote level she does feel depakote helps although not clear to me how one can distinguish the effect of one med from
another when are taking several requip has its own list of side effects but she has only received one dose. hopefully without the seroquel the restless legs will subside. and she will not need requip will follow
--- NOTE | 2024-01-07 15:05 | CM ---
CM following re: discharge planning.
Reviewed pt's chart, met with pt.
PT and OT continue to recommend SNF level of care. CM discussed it with the pt. pt expressed her agreement and pt stated her mother lives in [place] and she would like a SNF around [place] [facility] to make sure her mother will be able to visit her.
A referral sent to following SNFs: [facility], [facility], [facility], [facility], [facility], [facility] and [facility].
D/C plan: preferred SNF. Awaiting for determinations.
CM will follow to assist pt with discharge to a preferred SNF.
--- NOTE | 2024-01-07 15:35 | PTCARENOTE ---
Addendum entered by Karina Peralta RN 01/07/24 15:56:
transfer to [facility] without issue
Original Note:
report to IMU RN disa. VAT RN notified for need for midline due to continued infiltration. will defer HH draw until midline placed. patient brother updated with patient status, plan of care
--- NOTE | 2024-01-07 16:15 | PTCARENOTE ---
Pt rec'd into IMU 3352 as transfer from ICU. Pt is drowsy but arousable, pleasant and cooperative. Pt satting 97% on 3L VSS. Intermittenly in vent bigeminy/SR on tele. Rate controlled 80-90s. VAT RN Daryl in room setting up to attempt midline due to
extremely poor access and multiple IV infiltrates, will also send repeat H+H. Pharmacy awaiting result prior to activating Lovenox order. Call richard in right hand, will continue monitor.
[2024-01-07] MEDS: SINGULAIR 10 MG PO (16:49)
[2024-01-07 16:53] LABS: Hematocrit 21.3 % (37.0-47.0)
--- NOTE | 2024-01-07 16:53 | PTCARENOTE ---
Midline placed to right upper arm.
[2024-01-07 16:58] LABS: Hemoglobin 6.9 g/dL (12.0-16.0)
--- NOTE | 2024-01-07 17:12 | PTCARENOTE ---
Hgb resulted 6.9, Dr. Sawant notified, orders to stop Lovenox and Toradol, transfuse 2 units PRBCs. Pt tachypneic and uncomfortable, requiring 4L nc -sat 94%.
--- NOTE | 2024-01-07 18:20 | PTCARENOTE ---
Pt with oral temp 100.2 prior to hanging blood, TT sent to notify Dr. Sawant and cross coverage Dr. To. Dr. To instructed this RN to give dose of Tylenol and go ahead with hanging blood. Pt asking to void, x2 assist to get onto bedpan.
[2024-01-07] MEDS: TYLENOL 1000 MG PO (18:24)
--- NOTE | 2024-01-07 18:56 | PTCARENOTE ---
pt attempting to void on bedpan, unable-bladder scanned for 59 mls urine. Pt will attempt again later. Report given to next shift who will send for PRBCs. Sister in law at bedside, asking for update, this RN gave nursing update with permission of
patient. Safe environment maintained....Call richard in hand.
[2024-01-07] MEDS: DEPAKOTE ER (24 HR RELEASE) 500 MG PO (22:48)
[2024-01-08] VITALS (32 sets, daily range): BP systolic 95–186; BP diastolic 42–143; BMI 31.2
[2024-01-08] MEDS: ZOSYN 50 IV ×4 (02:23→20:33)
--- NOTE | 2024-01-08 03:37 | PTCARENOTE ---
Pt received 2 units of PRBC, tolerated well. ABD dressings changed. Pt having pain through out the night in back and ABD, PRNs given(see MAR). Emotional support given through out the night for teary episodes. Assessment care and vitals as charted.
[2024-01-08] MEDS: DILAUDID 0.5 MG IV ×2 (04:33→08:28)
[2024-01-08 05:18] LABS: Hematocrit 26.6 % (37.0-47.0); Mean Corp Hgb Conc. 33.8 g/dL (33.0-37.0); Mean Corpuscular Hgb 30.3 pg (27.0-31.0); Mean Corpuscular Volume 89.6 fL (81.0-99.0); Mean Platelet Volume 9.1 fL (7.4-10.4); Platelet Count 250 10^3/uL (130-400); Red Blood Cell Count 2.97 10^6/uL (4.20-5.40)
[2024-01-08 05:47] LABS: ALT (SGPT) < 10 U/L (0-35); AST (SGOT) 22 U/L (14-36); Alkaline Phosphatase 77 U/L (38-126); Blood Urea Nitrogen 11 mg/dl (7-17); Calcium 7.8 mg/dl (8.4-10.2); Carbon Dioxide 30 mmol/L (22-30); Chloride 100 mmol/L (98-107); Estimated Creatinine Clearance > 125 ml/min; Glucose 86 mg/dl (70-99); Potassium 3.9 mmol/L (3.5-5.1); Sodium 135 mmol/L (135-145); Total Bilirubin 0.8 mg/dl (0.2-1.3); Total Protein 4.6 g/dl (6.3-8.2); eGFR > 60.00
[2024-01-08 05:49] LABS: Depakane 35.1 ug/ml (50.0-120.0)
[2024-01-08] MEDS: SYMBICORT 160/4.5 MCG INHALER 2 PUFF INH ×2 (08:06→20:12)
[2024-01-08] MEDS: DUONEB 3 ML INH ×3 (08:06→20:11)
[2024-01-08] MEDS: PROTONIX IV 40 MG IV (08:33)
[2024-01-08] MEDS: NSS (PRESERVATIVE FREE) 10 ML IV (08:33)
[2024-01-08] MEDS: PROZAC 40 MG PO (08:34)
[2024-01-08] MEDS: VITAMIN D3 (cholecalciferol) 25 MCG PO (08:34)
[2024-01-08] MEDS: FLEXERIL 5 MG PO (08:34)
[2024-01-08] MEDS: REQUIP 0.25 MG PO ×3 (08:35→21:17)
--- NOTE | 2024-01-08 09:32 | W.PN.GS2 ---
Addendum entered and electronically signed by Shahriar Stahl MD 01/08/24 15:13:
CT scan results reviewed. No evidence of significant free air or obvious leakage from viscera. No evidence of well-defined abscess or fluid collection necessitating further drainage procedures. No evidence of a significant hematoma. No
significant fluid around the spleen. Operative drain well-positioned immediately adjacent to the rectal stump with may be some small scattered air and an adjacent loop of small bowel, but no significant abscess or evidence of complete dehiscence.
Overall, no indication or need for repeat surgical intervention at this time. Continue with medical management including bowel rest and antibiotics. Likely that patient is continuing to defervesce from her acute infectious presentation/disease,
given the limited nature of her colonic resection and the severity of her subsequent clinical course.
Addendum entered and electronically signed by Shahriar Stahl MD 01/08/24 12:15:
Patient seen and examined.
Complains of abdominal pain. No nausea or vomiting. Low grade fever yesterday.
Gen: uncomfortable, diaphoretic
Abd: soft, diffusely tender, distended, peritoneal, midline incision with central aspect of teresa opened, purulent fluid on gauze (replaced), ostomy viable with liquid stool, DAKOTA abd with purulent output, IR drain transrectal fibrinoserous
Patient is a 53 yo F with recent aspergillus pneumonia on O2 and on steroids presenting with complicated diverticulitis with large pelvic abscess
S/p IR drainage 12/25/2023.
S/p exploratory laparotomy with takedown of splenic flexure, creation end colostomy with omentectomy POD#5.
Uncomfortable appearing, restless
Tachycardic, mildly hypoxic, BP soft low. Low grade temps yesterday am (100.3)
midline incision clean and open in area
DAKOTA's with purulent drainage
Acute blood loss anemia requiring transfusion overnight (3 total). DAKOTA/ostomy outputs non-bloody. Unclear source.
Plan:
-- STAT CT of abd/pelvis with po/iv contrast given clinical deterioration
-- Analgesics prn. Increased Dilaudid dosage given degree of pain patient is having. Continue Ofirmev
-- Make NPO and place NGT for contrast administration, place to suction once CT imaging obtained
-- Hold NSAID's and chemical VTE ppx given anemia.
-- IV ppi for GI ppx
-- SCD's as tolerated for VTE ppx
-- Continue drains, purulent outputs noted
-- Continue IV abx, multiple organisms in wound culture. Zosyn is culture sensitive.
Further surgical recs pending CT findings
Original Note:
Today's Communication / Plan
-
STAT CT abd/pelvis with po/iv contrast
NGT placement
Assessment / Plan
-
Assessment: 53 yo female with recent aspergillus pneumonia on O2 and on steroids presenting with complicated diverticulitis with large pelvic abscess
S/p IR drainage 12/25/2023.
S/p exploratory laparotomy with takedown of splenic flexure, creation end colostomy with omentectomy POD#5.
Uncomfortable appearing, restless
Tachycardic, mildly hypoxic, BP soft low. Low grade temps yesterday am (100.3)
midline incision clean and open in area
DAKOTA's with purulent drainage
Acute blood loss anemia requiring transfusion overnight (3 total). DAKOTA/ostomy outputs non-bloody. Unclear source.
Plan: STAT CT of abd/pelvis with po/iv contrast given clinical deterioration
Analgesics prn. Increased Dilaudid dosage given degree of pain patient is having. Continue Ofirmev
Make NPO and place NGT for contrast administration, place to suction once CT imaging obtained
Hold NSAID's and chemical VTE ppx given anemia.
IV ppi for GI ppx
SCD's as tolerated for VTE ppx
Continue drains, purulent outputs noted
Continue IV abx, multiple organisms in wound culture. Zosyn is culture sensitive.
Further surgical recs pending CT findings
Subjective Data
-
Date of Service: January 08, 2024
Patient seen and examined at bedside with Dr. Stahl. Writhing in pain, restless. Deteriorating clinically and not very conversive.
Objective Data
-
Intake and Output
01/07/24 01/08/24 01/09/24
06:59 06:59 06:59
Intake Total 3210 / 3290 3155 / 3155
Output Total 1290 / 1290 1105 / 1105
Balance 1919
Intake:
Oral fluids 800 / 800 850 / 850
IV fluids (Total) 1919 1600 / 1600
Nss 1,000 ml @ 80 mls/hr IV . 1919 720 / 720
[id number] CORY Rx#:[id number]
IV piggybacks 200 / 200 200 / 200
Amount instilled into Drain (
Total)
Left Lower Sacrum Cole-Olmos
A Placed in IR
Amount instilled into GI Tube (
Total)
[place] Sump
Blood Product Amount Infused ( 250 / 250 500 / 500
mL)
Packed Rbc Leukoreduced Unit 250 / 250
[id number]
Packed Rbc Leukoreduced Unit 250 / 250
[id number]
Packed Rbc Leukoreduced Unit 250 / 250
[id number]
Output:
Liquid stool amount 275 / 275
Colostomy 275 / 275
Drain Output (Total) 65 / 65 45 / 45
Left Abdomen Cole-Olmos 10 45 / 45
Left Lower Sacrum Cole-Olmos 55 / 55 0 / 0
A Placed in IR
Gastrointestinal tube output ( 175 / 175
Total)
[place] Sump 175 / 175
Urine, Voided 775 / 775 1050 / 1050
Other:
How many times incontinent 1
SATURATED amount urine
Number of unmeasured liquid
stools
Colostomy 10
Vital Signs
Temp Pulse Resp BP Pulse Ox
98.8 F 112 24 102/52 88
01/08/24 07:15 01/08/24 08:07 01/08/24 08:07 01/08/24 06:13 01/08/24 08:07
Lab Results
01/08/24 04:53
01/08/24 04:53
Calcium 7.8 mg/dl (8.4-10.2) L 01/08/24 04:53
Phosphorus 2.8 mg/dl (2.5-4.5) 01/06/24 03:42
Magnesium 2.1 mg/dl (1.6-2.3) 01/06/24 03:42
Total Bilirubin 0.8 mg/dl (0.2-1.3) 01/08/24 04:53
AST 22 U/L (14-36) 01/08/24 04:53
ALT < 10 U/L (0-35) 01/08/24 04:53
Alkaline Phosphatase 77 U/L (38-126) 01/08/24 04:53
Total Protein 4.6 g/dl (6.3-8.2) L 01/08/24 04:53
Albumin 2.0 g/dl (3.5-5.0) L 01/08/24 04:53
Physical Exam
-
Uncomfortable, appears in pain, restless in bed
ABD: Distended, grossly tender throughout,
incision dressing changed - open area above umbilicus with SSF draining, packed with gauze. Teresa intact
stoma pink, viable. ostomy appliance without much gas. bowel sweat present
surgical DAKOTA - purulence/SSF
IR drain - light SSF
--- NOTE | 2024-01-08 09:33 | W.PN.HOSP.TC ---
Today's Communication/Plan
-
see bold
Assessment / Plan
Assessment / Plan
Gen: NAD, Awake and alert
Eyes: EOMI, PERRLA, no scleral icterus.
Neck: supple.
CV: RRR, +S1/S2, no m/r/g.
Resp: continues to remain CTAB anteriorly, no rales, wheezes, or rhonchi.
Abd: remains +BS, soft, mild tenderness to light palpation, ND. Abdominal dressing with serosanguineous drainage
Skin: No rashes.
Neuro: CN 2-12 intact, non-focal.
Psych: anxious
12/26/23 14:43 Blood/Venous Blood Culture - Final
No Growth - Final Report
12/26/23 12:59 Blood/Venous Blood Culture - Final
No Growth - Final Report
12/25/23 17:30 Abscess Wound Culture - Final
Escherichia coli
Escherichia coli#2
Streptococcus species
Group F Streptococcus
12/25/23 17:30 Abscess Gram Stain - Final
CT A/P 12/24/23:
1. Severe sigmoid diverticulitis with large complex pericolonic abscess in this region as described.
2. Probable chronic mild infectious/inflammatory bronchitis/bronchiolitis in the lung bases.
CT A/P 01/03/24: Markedly decreased posterior true pelvis abscess in comparison to prior pre-op chest drainage study with pigtail drainage catheter seen in the soft tissues of the left posterior true pelvis. Massively distended right colon including
cecum (cecum measuring up to 12 cm) with marked maximal colonic stool as well as gaseous distention of transverse and proximal descending colon, moderate stool with distention of the distal descending and sigmoid colon, limited in evaluation without
oral contrast opacification. Thickening Of the wall of the distal descending and proximal sigmoid colon which could represent colitis or diverticulitis. Partially obstructing distal colonic mass with inflammation cannot be excluded. No free air.
Sigmoid diverticulitis with abscess:
-h/o diverticulosis/diverticulitis
-s/p abscess drainage 12/25/23 by IR
-with findings of massively distended right colon including the cecum on CT scan of the abdomen pelvis on January 03, 2024 the patient was taken to the OR for Exploratory laparotomy, takedown splenic flexure, creation end colostomy, omentectomy
-cont Zosyn as per ID
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
-NGT removed 01/06/24AM, now replaced for STAT CT A/P ordered by surgery
Acute blood loss anemia:
-s/p 3U pRBCs
-holding Lovenox
Restless Legs:
-Seroquel stopped as Vfend increases serum concentration of Seroquel which could be the cause of the patient's restless legs.
-Trazodone dose decreased and made as needed
-currently on Requip which may be able to be stopped with above medication changes.
-Flexeril PRN (has helped recently)
Other problems:
h/o pulmonary Aspergillus: since Apr 2023. cont Vfend.
Hyperkalemia, resolved
HLD
GERD: cont PPI
Anxiety/depression: Continue Trazodone PRN/Prozac/Depakote. Seroquel stopped by psych.
Discussed with Drs. Sawant and Belen and RN.
FULL/SCDs (would prefer restart of Lovenox if OK with surgery)
Total time spent on today's encounter was 52 minutes which included time spent in counseling the patient/family regarding diagnosis and treatment plan as listed above, goals of care, and symptom management. Case was discussed with nursing staff,
specialists, and care coordinators/case management. All labs and imaging personally reviewed by me. Remainder the time spent in detailed review of previous records, lab data, imaging, and other medical provider documentation.
Anticipated Discharge: > 48 hours
Subjective/Interval History
-
Date of Service: January 08, 2024
Pt was complaining of severe abdominal pain, now improved after dilaudid. As per nursing good ostomy output.
Objective Data
-
Labs:
Laboratory Results
01/08/24
04:53
WBC 15.0 H
Hgb 9.0 L D
Hct 26.6 L
Plt Count 250
Sodium 135
Potassium 3.9
Chloride 100
Carbon Dioxide 30
BUN 11
Creatinine 0.4 L
Glucose 86
Calcium 7.8 L
Total Bilirubin 0.8
AST 22
ALT < 10
Alkaline Phosphatase 77
Vital Signs:
Vital Signs
Temp Pulse Resp BP Pulse Ox
98.8 F 112 24 102/52 88
01/08/24 07:15 01/08/24 08:07 01/08/24 08:07 01/08/24 06:13 01/08/24 08:07
I&O
01/07/24 01/08/24 01/09/24
06:59 06:59 06:59
Intake Total 3210 / 3290 3155 / 3155
Output Total 1290 / 1290 1105 / 1105
Balance 1919 / 1999
--- NOTE | 2024-01-08 10:03 | W.PN.ID1 ---
Date of Service
Date of Service: January 08, 2024
Today's Communication
Continue antibiotics
Assessment / Plan
Diverticulitis
Diverticular abscess status post IR drainage
S/p exploratory lap, colostomy (01/03/2024)
Leukocytosis
- increased today.
Hx Pulmonary aspergillosis; on prior Vfend as outpatient
Anxiety/depression
Hx steroid-induced psychosis
GERD
Recommendations:
Continue with Zosyn for the present.
Monitor white count and temperature curve. Current rise somewhat concerning. If WBC continues to rise, would consider additional imaging.
Continue with voriconazole.
����������������������������������������������������������
Chief Complaint
-: Leukocytosis and Other (Diverticulitis; diverticular abscess)
Subjective / Review of Systems
Review of Systems: No Fever, No Chills, Abdominal Pain and No Nausea
Vital Signs / Physical Exam
Vital Signs
Vital Signs
Temp Pulse Resp BP Pulse Ox
98.8 F 112 24 102/52 88
01/08/24 07:15 01/08/24 08:07 01/08/24 08:07 01/08/24 06:13 01/08/24 08:07
Physical Exam
Physical Exam:
Constitutional: No Acute Distress, Comfortable, Acutely Ill and Non-toxic
Head: Normocephalic
Eyes: No Conjunctival Hemorrhage and Sclera Anicteric
Cardiovascular: S1/S2 and Murmur; Negative S3/S4
Pulmonary: Clear and Non Labored; Negative Wheezes, Rales or Rhonchi
Gastrointestinal: Soft, Tender, Non Distended, Decreased Bowel Sounds and Other (ostomy present)
Extremities: Edema; Negative Cyanosis, Erythema, Splinter Hemorrhage or Venous Insufficiency
Skin: Warm and Dry; Negative Rash or Jaundice
Neurological: Awake and Alert
Psychological: Calm
Objective Data
Lab Data
Lab Results
Laboratory Tests
01/07/24
05:29
WBC 14.2 H
01/08/24 04:53
01/08/24 04:53
PT 15.3 Sec (11.4-14.6) H 01/06/24 15:22
INR 1.21 01/06/24 15:22
APTT 35.6 Sec (23.4-35.0) H 01/06/24 15:22
Estimated Creat Clear > 125 ml/min 01/08/24 04:53
Lactic Acid Cancelled 01/04/24 09:00
Total Bilirubin 0.8 mg/dl (0.2-1.3) 01/08/24 04:53
AST 22 U/L (14-36) 01/08/24 04:53
ALT < 10 U/L (0-35) 01/08/24 04:53
Alkaline Phosphatase 77 U/L (38-126) 01/08/24 04:53
Most recent labs reviewed.
Micro Results:
12/26/23 14:43 Blood Culture - Final
Blood/Venous No Growth - Final Report
12/26/23 12:59 Blood Culture - Final
Blood/Venous No Growth - Final Report
12/25/23 17:30 Wound Culture - Final
Abscess Escherichia coli
Escherichia coli#2
Streptococcus species
Group F Streptococcus
Gram Stain - Final
Wound/abscess/other Cult Final 12/28/23-820
Many 1st strain Escherichia coli
Few 2nd strain Escherichia coli
Many Streptococcus species of two morphotypes
Moderate Group F Streptococcus*
1. Escherichia coli
M.I.C. RX
--------- ---
Amoxicillin/Potas. Clavulanate 16/8 I
Ampicillin >16 R
Ampicillin/Sulbactam >16/8 R
Cefazolin >16 R
Cefepime <=2 S
Ceftazidime <=1 S
Ceftriaxone <=1 S
Ertapenem <=0.5 S
Ciprofloxacin <=0.25 S
Gentamicin >8 R
Levofloxacin <=0.5 S
Meropenem <=1 S
Piperacillin/Tazobactam <=16 S
Tobramycin 8 I
Trimethoprim/Sulfamethoxazole >38 R
2. Escherichia coli#2
M.I.C. RX
--------- ---
Amoxicillin/Potas. Clavulanate <=8/4 S
Ampicillin >16 R
Ampicillin/Sulbactam >16/8 R
Cefazolin 16 R
Cefepime <=2 S
Ceftazidime <=1 S
Ceftriaxone <=1 S
Ertapenem <=0.5 S
Ciprofloxacin <=0.25 S
Gentamicin <=4 S
Levofloxacin <=0.5 S
Meropenem <=1 S
Piperacillin/Tazobactam <=16 S
Tobramycin <=4 S
Trimethoprim/Sulfamethoxazole >38 R
Imaging:
01/03/2024 CT abdomen/pelvis: Markedly decreased posterior true pelvis abscess in comparison to prior pre-op chest drainage study with pigtail drainage catheter seen in the soft tissues of the left posterior true pelvis. Massively distended right
colon including cecum (cecum measuring up to 12 cm) with marked maximal colonic stool as well as gaseous distention of transverse and proximal descending colon, moderate stool with distention of the distal descending and sigmoid colon, limited in
evaluation without oral contrast opacification. Thickening Of the wall of the distal descending and proximal sigmoid colon which could represent colitis or diverticulitis. Partially obstructing distal colonic mass with inflammation cannot be
excluded. No free air. Please see full dictation for additional detail.
[2024-01-08] MEDS: DILAUDID 1 MG IV ×4 (10:06→23:32)
[2024-01-08] MEDS: VFEND 200 MG PO ×2 (10:09→21:17)
[2024-01-08] MEDS: NSS 1000 IV (10:26)
[2024-01-08] MEDS: OMNIPAQUE 50 ML PO (10:26)
--- NOTE | 2024-01-08 11:23 | PTCARENOTE ---
Rec'd pt this AM. Pt complained of 10/10 abdominal pain, resltess legs, thrashing in bed. O2 sat down to 88% on 4L, increased to 6L, notified Dr. Leo. GI ordered NGT placement and stat abdominal CT. Pt only able to tolerate 300ml of the contrast
dye in NGT. Notified GI BIOINFORMATICS ANALYST, OK to stop instilling dye. Pt requiring increased pain control. 1mg IV Dilaudid given with good effect. Currently resting comfortably. O2 sat improved. back to 4L NC. 98%. Tachycardia resolved. current HR 75.
--- NOTE | 2024-01-08 11:51 | W.PN.UPDATE ---
Update Note
Progress Note Update
patient seen chart reviewe. spoke with nursing. the patient appears more with it this am. she was able to converse freely and the long latency between my question and her answer had shortened. she does continue to have restless legs although she
said she felt it was better. it did not look better to me. if it does not ameliorate with the cessation of seroquel would consider a neuro consult. for now continue w meds as they are for psych i will bring her a coloring book and markers which
she said she would like to keep her mind occupied which is also a good sign.
--- NOTE | 2024-01-08 13:39 | WOUNDNOTE ---
WOC RN NOTE: Visited patient to assess ostomy appliance. Appliance intact, no sign of leaking. Patient agitated and in pain today. If appliance change needed over the weekend, supplies are in room. RN Isabel aware of plan. Will continue to follow.
--- NOTE | 2024-01-08 15:49 | PTCARENOTE ---
Pt's pain is better controlled now with Dialudid and NGT to low intermittent suction. Per GI PATIENT ADVOCATE Ok, to give ice chips and PO meds. Pt unable to void. Bladder scan straight cath per order. 4L NC, resting comfortably at this time. Brother updated via
telephone.
[2024-01-08] MEDS: SINGULAIR 10 MG PO (16:36)
[2024-01-08 16:59] LABS: Hematocrit 27.7 % (37.0-47.0); Hemoglobin 9.1 g/dL (12.0-16.0)
--- NOTE | 2024-01-08 20:36 | PTCARENOTE ---
Received pt at change of shift. Pt was writhing in pain. Desatting to the mid 80s on 3 L d/t pain; increased to 6L with pulse ox now 97%. Administered PRN dilaudid (see MAR). Pt now resting comfortably in bed with call richard in reach.
[2024-01-08] MEDS: DEPAKOTE ER (24 HR RELEASE) 500 MG PO (21:17)
[2024-01-08] MEDS: DESYREL 100 MG PO (21:17)
[2024-01-09] VITALS (19 sets, daily range): BP systolic 108–163; BP diastolic 49–122; PULSE 103; O2SAT 96; BMI 30.9
[2024-01-09] MEDS: NSS 1000 IV ×2 (00:07→13:20)
[2024-01-09] MEDS: DILAUDID 1 MG IV ×5 (02:52→17:53)
[2024-01-09] MEDS: ZOSYN 50 IV ×4 (02:52→20:16)
[2024-01-09 05:12] LABS: Hematocrit 25.9 % (37.0-47.0); Hemoglobin 8.5 g/dL (12.0-16.0); Mean Corp Hgb Conc. 32.8 g/dL (33.0-37.0); Mean Corpuscular Hgb 29.3 pg (27.0-31.0); Mean Corpuscular Volume 89.3 fL (81.0-99.0); Mean Platelet Volume 8.5 fL (7.4-10.4); Platelet Count 267 10^3/uL (130-400); Red Cell Dist. Width 15.3 % (11.5-14.5); White Blood Cell Count 14.7 10^3/uL (4.8-10.8)
[2024-01-09 05:38] LABS: ALT (SGPT) < 10 U/L (0-35); AST (SGOT) 22 U/L (14-36); Albumin 1.9 g/dl (3.5-5.0); Alkaline Phosphatase 79 U/L (38-126); Blood Urea Nitrogen 12 mg/dl (7-17); Calcium 7.9 mg/dl (8.4-10.2); Carbon Dioxide 33 mmol/L (22-30); Chloride 101 mmol/L (98-107); Estimated Creatinine Clearance > 125 ml/min; Glucose 59 mg/dl (70-99); Potassium 3.7 mmol/L (3.5-5.1); Sodium 138 mmol/L (135-145); Total Bilirubin 0.4 mg/dl (0.2-1.3); Total Protein 4.3 g/dl (6.3-8.2); Triglycerides 91 mg/dl (10-149); eGFR > 60.00
[2024-01-09 05:45] LABS: Prealbumin (Transthyretin) < 3.0 mg/dl (17.6-36.0)
[2024-01-09] MEDS: DUONEB 3 ML INH ×3 (07:50→20:18)
[2024-01-09] MEDS: SYMBICORT 160/4.5 MCG INHALER 2 PUFF INH ×2 (07:50→20:18)
--- NOTE | 2024-01-09 08:27 | W.PN.HOSP.TC ---
Today's Communication/Plan
-
see bold
Assessment / Plan
Assessment / Plan
Gen: NAD, Awake and alert
Eyes: EOMI, PERRLA, no scleral icterus.
Neck: supple.
CV: tachy, reg rhythm with frequent premature beats, +S1/S2, no m/r/g.
Resp: CTAB anteriorly, no rales, wheezes, or rhonchi.
Abd: +BS, soft, mild tenderness to palpation, ND.
Skin: No rashes.
Neuro: CN 2-12 intact, non-focal. Moving legs repetitively.
Psych: anxious
12/26/23 14:43 Blood/Venous Blood Culture - Final
No Growth - Final Report
12/26/23 12:59 Blood/Venous Blood Culture - Final
No Growth - Final Report
12/25/23 17:30 Abscess Wound Culture - Final
Escherichia coli
Escherichia coli#2
Streptococcus species
Group F Streptococcus
12/25/23 17:30 Abscess Gram Stain - Final
CT A/P 12/24/23:
1. Severe sigmoid diverticulitis with large complex pericolonic abscess in this region as described.
2. Probable chronic mild infectious/inflammatory bronchitis/bronchiolitis in the lung bases.
CT A/P 01/03/24: Markedly decreased posterior true pelvis abscess in comparison to prior pre-op chest drainage study with pigtail drainage catheter seen in the soft tissues of the left posterior true pelvis. Massively distended right colon including
cecum (cecum measuring up to 12 cm) with marked maximal colonic stool as well as gaseous distention of transverse and proximal descending colon, moderate stool with distention of the distal descending and sigmoid colon, limited in evaluation without
oral contrast opacification. Thickening Of the wall of the distal descending and proximal sigmoid colon which could represent colitis or diverticulitis. Partially obstructing distal colonic mass with inflammation cannot be excluded. No free air.
CT A/P 01/08/24:
1. Interval sigmoidectomy with creation of Sav pouch and diverting left lower quadrant colostomy. Midline laparotomy incision with small amount of fluid seen within the inferior margin of the incision.
2. Scattered pockets of abdominal and pelvic ascites with no definitive findings for fluid collection or abscess. Left transgluteal percutaneous drain remains in place with no significant abscess remaining within the left pelvis.
3. Small bilateral pleural effusions with adjacent atelectasis within the lower lobes.
4. Diffuse subcutaneous stranding/anasarca within both flanks and proximal thighs.
Sigmoid diverticulitis with abscess:
-h/o diverticulosis/diverticulitis
-s/p abscess drainage 12/25/23 by IR
-with findings of massively distended right colon including the cecum on CT scan of the abdomen pelvis on January 03, 2024 the patient was taken to the OR for Exploratory laparotomy, takedown splenic flexure, creation end colostomy, omentectomy
-cont Zosyn as per ID
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
-NGT removed 01/06/24, then replaced for STAT CT A/P 01/08/24, remains in place
-repeat CT A/P above without abscess
Acute blood loss anemia:
-s/p 3U pRBCs
-holding Lovenox (discussed with surgery, Dr. Stahl, on 01/08/24)
Restless Legs:
-Seroquel stopped as Vfend increases serum concentration of Seroquel which could be the cause of the patient's restless legs.
-Trazodone dose decreased and made as needed
-currently on Requip which may be able to be stopped with above medication changes.
-Flexeril PRN (has helped recently)
Other problems:
h/o pulmonary Aspergillus: since Apr 2023. cont Vfend.
Hyperkalemia, resolved
HLD
GERD: cont PPI
Anxiety/depression: Continue Trazodone PRN/Prozac/Depakote. Seroquel stopped by psych.
Discussed with RN.
FULL/SCDs (would prefer restart of Lovenox if OK with surgery, being address with surgery daily)
Total time spent on today's encounter was 50 minutes which included time spent in counseling the patient/family regarding diagnosis and treatment plan as listed above, goals of care, and symptom management. Case was discussed with nursing staff,
specialists, and care coordinators/case management. All labs and imaging personally reviewed by me. Remainder the time spent in detailed review of previous records, lab data, imaging, and other medical provider documentation.
Anticipated Discharge: > 48 hours
Subjective/Interval History
-
Date of Service: January 09, 2024
Pt states abdominal pain 'not so great.'
Objective Data
-
Labs:
Laboratory Results
01/09/24
04:57
WBC 14.7 H
Hgb 8.5 L
Hct 25.9 L
Plt Count 267
Sodium 138
Potassium 3.7
Chloride 101
Carbon Dioxide 33 H
BUN 12
Creatinine 0.4 L
Glucose 59 L
Calcium 7.9 L
Total Bilirubin 0.4
AST 22
ALT < 10
Alkaline Phosphatase 79
Vital Signs:
Vital Signs
Temp Pulse Resp BP Pulse Ox
97.4 F 104 19 148/72 99
01/09/24 03:39 01/09/24 06:18 01/09/24 06:18 01/09/24 06:18 01/09/24 04:00
I&O
01/08/24 01/09/24 01/10/24
06:59 06:59 06:59
Intake Total 3155 / 3155 1060 / 1060
Output Total 1105 / 1105 1190 / 1190
Balance 2049 / 2049 -130 / -130
--- NOTE | 2024-01-09 08:30 | W.PN.ID1 ---
Date of Service
Date of Service: January 09, 2024
Today's Communication
Continue antibiotics
Assessment / Plan
Diverticulitis
Diverticular abscess status post IR drainage
S/p exploratory lap, colostomy (01/03/2024)
Leukocytosis
-Stable today..
Hx Pulmonary aspergillosis; on prior Vfend as outpatient
Anxiety/depression
Hx steroid-induced psychosis
GERD
Recommendations:
Continue with Zosyn for the present.
Continue to monitor white count and temperature curve.
Continue with voriconazole.
����������������������������������������������������������
Chief Complaint
-: Leukocytosis and Other (Diverticulitis; diverticular abscess)
Subjective / Review of Systems
Review of Systems: No Fever
Vital Signs / Physical Exam
Vital Signs
Vital Signs
Temp Pulse Resp BP Pulse Ox
97.4 F 104 19 148/72 99
01/09/24 03:39 01/09/24 06:18 01/09/24 06:18 01/09/24 06:18 01/09/24 04:00
Physical Exam
Constitutional: Comfortable and Non-toxic
Cardiovascular: S1/S2; Negative S3/S4
Pulmonary: Non Labored
Gastrointestinal: Soft and Non Distended
Skin: Warm and Dry; Negative Rash or Jaundice
Psychological: Calm
Objective Data
Lab Data
Lab Results
01/09/24 04:57
01/09/24 04:57
PT 15.3 Sec (11.4-14.6) H 01/06/24 15:22
INR 1.21 01/06/24 15:22
APTT 35.6 Sec (23.4-35.0) H 01/06/24 15:22
Estimated Creat Clear > 125 ml/min 01/09/24 04:57
Lactic Acid Cancelled 01/04/24 09:00
Total Bilirubin 0.4 mg/dl (0.2-1.3) 01/09/24 04:57
AST 22 U/L (14-36) 01/09/24 04:57
ALT < 10 U/L (0-35) 01/09/24 04:57
Alkaline Phosphatase 79 U/L (38-126) 01/09/24 04:57
Most recent labs reviewed.
Micro Results:
12/26/23 14:43 Blood Culture - Final
Blood/Venous No Growth - Final Report
12/26/23 12:59 Blood Culture - Final
Blood/Venous No Growth - Final Report
12/25/23 17:30 Wound Culture - Final
Abscess Escherichia coli
Escherichia coli#2
Streptococcus species
Group F Streptococcus
Gram Stain - Final
Wound/abscess/other Cult Final 12/28/23-820
Many 1st strain Escherichia coli
Few 2nd strain Escherichia coli
Many Streptococcus species of two morphotypes
Moderate Group F Streptococcus*
1. Escherichia coli
M.I.C. RX
--------- ---
Amoxicillin/Potas. Clavulanate 16/8 I
Ampicillin >16 R
Ampicillin/Sulbactam >16/8 R
Cefazolin >16 R
Cefepime <=2 S
Ceftazidime <=1 S
Ceftriaxone <=1 S
Ertapenem <=0.5 S
Ciprofloxacin <=0.25 S
Gentamicin >8 R
Levofloxacin <=0.5 S
Meropenem <=1 S
Piperacillin/Tazobactam <=16 S
Tobramycin 8 I
Trimethoprim/Sulfamethoxazole >38 R
2. Escherichia coli#2
M.I.C. RX
--------- ---
Amoxicillin/Potas. Clavulanate <=8/4 S
Ampicillin >16 R
Ampicillin/Sulbactam >16/8 R
Cefazolin 16 R
Cefepime <=2 S
Ceftazidime <=1 S
Ceftriaxone <=1 S
Ertapenem <=0.5 S
Ciprofloxacin <=0.25 S
Gentamicin <=4 S
Levofloxacin <=0.5 S
Meropenem <=1 S
Piperacillin/Tazobactam <=16 S
Tobramycin <=4 S
Trimethoprim/Sulfamethoxazole > R
Imaging:
01/03/2024 CT abdomen/pelvis: Markedly decreased posterior true pelvis abscess in comparison to prior pre-op chest drainage study with pigtail drainage catheter seen in the soft tissues of the left posterior true pelvis. Massively distended right
colon including cecum (cecum measuring up to 12 cm) with marked maximal colonic stool as well as gaseous distention of transverse and proximal descending colon, moderate stool with distention of the distal descending and sigmoid colon, limited in
evaluation without oral contrast opacification. Thickening Of the wall of the distal descending and proximal sigmoid colon which could represent colitis or diverticulitis. Partially obstructing distal colonic mass with inflammation cannot be
excluded. No free air. Please see full dictation for additional detail.
[2024-01-09] MEDS: REQUIP 0.25 MG PO (09:35)
[2024-01-09] MEDS: VFEND 200 MG PO ×2 (09:35→21:57)
[2024-01-09] MEDS: PROZAC 40 MG PO (09:35)
[2024-01-09] MEDS: VITAMIN D3 (cholecalciferol) 25 MCG PO (09:35)
[2024-01-09] MEDS: NSS (PRESERVATIVE FREE) 10 ML IV (09:36)
[2024-01-09] MEDS: PROTONIX IV 40 MG IV (09:37)
--- NOTE | 2024-01-09 11:16 | W.PN.GS2 ---
Today's Communication / Plan
-
-- Start TPN
-- NPO, IVF, NGT
-- Hold NSAID's, OK to resume chemoprophylaxis
Assessment / Plan
-
Assessment: 53 yo female with recent aspergillus pneumonia on O2 and on steroids presenting with complicated diverticulitis with large pelvic abscess
S/p IR drainage 12/25/2023.
S/p exploratory laparotomy with takedown of splenic flexure, creation end colostomy with omentectomy POD#6.
CT Abd/Pelvis (01/08/2024): Small amount of fluid within the inferior margin of the incision, scattered pockets of abdominal and pelvic ascites without definitive abscess, no large volume of free air, no evidence of contrast extravasation, diffuse
anasarca
AVSS with tachycardia improved
Sepsis present on admission
Acute blood loss anemia requiring transfusion overnight (3 total), DAKOTA/ostomy outputs non-bloody, Hb with mild drift
Smoldering infection related to underlying disease and gross contamination as found operatively. High risk and possibility of rectal stump blowout given operative findings, control with operative drain.
Plan: Start TPN
NPO, IVF, NGT
Analgesics prn. Increased Dilaudid dosage given degree of pain patient is having. Continue Ofirmev
Hold NSAID's, OK to resume chemoprophylaxis
IV PPI for GI ppx
SCD's as tolerated for VTE ppx
Continue drains, purulent outputs noted
Continue IV abx, multiple organisms in wound culture. Zosyn is culture sensitive.
Subjective Data
-
Date of Service: January 09, 2024
Persistent abdominal pain, slightly improved. No nausea or vomiting. Afebrile.
Objective Data
-
Intake and Output
01/08/24 01/09/24 01/10/24
06:59 06:59 06:59
Intake Total 3155 / 3155 1060 / 1060
Output Total 1105 / 1105 1190 / 1190
Balance 2049 / 2049 -130 / -130
Intake:
Oral fluids 850 / 850
IV fluids (Total) 1600 / 1600 960 / 960
Nss 1,000 ml @ 80 mls/hr IV . 720 / 720
[id number] [facility] Rx#:[id number]
IV piggybacks 200 / 200 100 / 100
Amount instilled into Drain ( 5 / 5
Total)
Left Lower Sacrum Cole-Olmos 5 / 5
A Placed in IR
Blood Product Amount Infused ( 500 / 500
mL)
Packed Rbc Leukoreduced Unit 250 / 250
[id number]
Packed Rbc Leukoreduced Unit 250 / 250
[id number]
Output:
Liquid stool amount 10 / 10
Colostomy 10 / 10
Drain Output (Total) 45 / 45 40 / 40
Left Abdomen Cole-Olmos 45 / 45 30 / 30
Left Lower Sacrum Cole-Olmos 0 / 0 10 / 10
A Placed in IR
Urine, Voided 1050 / 1050 350 / 350
Straight cath output 800 / 800
Other:
How many times incontinent 1
SATURATED amount urine
Number of unmeasured liquid
stools
Colostomy 10
Vital Signs
Temp Pulse Resp BP Pulse Ox
98.8 F 74 9 116/52 98
01/09/24 07:36 01/09/24 11:00 01/09/24 11:00 01/09/24 11:00 01/09/24 11:00
Lab Results
01/09/24 04:57
01/09/24 04:57
Calcium 7.9 mg/dl (8.4-10.2) L 01/09/24 04:57
Phosphorus 3.0 mg/dl (2.5-4.5) 01/09/24 04:57
Magnesium 2.0 mg/dl (1.6-2.3) 01/09/24 04:57
Total Bilirubin 0.4 mg/dl (0.2-1.3) 01/09/24 04:57
AST 22 U/L (14-36) 01/09/24 04:57
ALT < 10 U/L (0-35) 01/09/24 04:57
Alkaline Phosphatase 79 U/L (38-126) 01/09/24 04:57
Total Protein 4.3 g/dl (6.3-8.2) L 01/09/24 04:57
Albumin 1.9 g/dl (3.5-5.0) L 01/09/24 04:57
Physical Exam
-
Gen: NAD
HEENT: NGT with light bilious outputs
Abd: soft, diffusely tender, distended, focally peritoneal, midline incision with central aspect of heaven opened, purulent fluid on gauze (replaced), ostomy viable with liquid stool, DAKOTA abd with purulent output, IR drain transrectal fibrinoserous
--- NOTE | 2024-01-09 11:54 | PTCARENOTE ---
Assumed care of patient this morning. She is extremely restless while awake, moving her legs constantly. I spoke with patient's brother, who reports he is very worried about her. He also reported she was just admitted to a mental health facility 2
weeks prior to coming to for mental health. He reports he is going to find some records and get back to me with more information. I updated him to best of RN ability. Patient reports pain to her abdomen, medicated per MAR. She remains on 6L NC.
She is tachypneic when she is awake, breathing labored at times and patient needs encouragement to breathe naturally. Her midline dressing is dry and intact, she has 2 DAKOTA drains, both draining milky serosang. Colostomy intact. TITO stockings on.
Assessment, care and VS as charted.
--- NOTE | 2024-01-09 13:09 | VATNOTE ---
PICC tip placement SVC per radiology report, OK to use. Verbally communicated to PCN.
--- NOTE | 2024-01-09 13:32 | W.PN.UPDATE ---
Update Note
Progress Note Update
patient seen chart reviewed. patient's movements are worse. i am concerned they represent tardive dyskinesia. as you watch her movements if you imagine her standing up the movements look very much like TD. it is not just restless legs but there
are writing truncal movements as well. depakote too can cause td and patient has been exposed to other antipsychotics in the past including seroquel which i just stopped and abilify. will order neuro consult at this point. have cut back prozac to
20 mg. depakote level is low but level has nothing to do w td.
--- NOTE | 2024-01-09 13:34 | PTCARENOTE ---
Assisted PT with standing of patient. She was on her feet for maybe 20 seconds and then her legs gave out and she fell back onto the bed. Pt was able to sit on the side of the bed for a few minutes then was assisted to laying back down. She then
felt the urge void, which bedpan was used. Pt bladder scanned for a post-void and was 88. She also then c/o of severe abdominal pain and was medicated with Dilaudid IV, see MAR.
--- NOTE | 2024-01-09 13:43 | PTCARENOTE ---
aware of CXR results with possible PNA.
[2024-01-09] MEDS: VANCOCIN 540 MG IV (14:22)
--- NOTE | 2024-01-09 14:36 | PHA.VAN.IN ---
Assessment
- Assessment
Renal Function: Appears similar to baseline
Maximum Temperature: afebrile in last 24 hours
Concomitant Antimicrobials: voriconazole, piperacillin-tazobactam
AUC Dosing Plan
- Dosing Variables
Dosing Weight (kg): 92.3
Dosing CrCl (ml/min): 100
Vd coefficient (L/kg): 0.6
- Empiric Dosing
Initial / Loading Dose: 2000 mg 01/08 14:22
Maintenance Regimen: 1250 mg q12h
Estimated AUC (mcg*h/mL): 550
Estimated Peak (mcg*h/mL): 34.7
Estimated Trough (mcg/ml): 13.9
Estimated Half Life (H): 7.9
- Monitoring
No levels ordered at this time: consider in the upcoming days
MRSA Screen: Ordered per protocol
Pharmacokinetics Vancomycin I
- -
Patient Age: 53
Patient Sex: Female
Vancomycin Day #: 1
Indication: Pulmonary/Respiratory
Requesting Provider: Dr Leo
Pertinent Antimicrobial Allergies:
no known allergies
Height / Weight:
Height 5 ft 8 in
Actual Weight 92.3 kg
Pertinent Past Medical History: BMI 31; pulmonary aspergillosis as outpt; diverticular abscess s/p drainage
- Vital Signs / Lab Results
Temp Pulse Resp BP Pulse Ox
98.4 F 75 11 140/78 98
01/09/24 11:11 01/09/24 14:05 01/09/24 14:05 01/09/24 13:01 01/09/24 14:05
Lab Results - Hematology
01/07/24 01/08/24 01/09/24
05:29 04:53 04:57
WBC 14.2 H 15.0 H 14.7 H
Lab Results - Chemistry
01/07/24 01/08/24 01/09/24
05:29 04:53 04:57
BUN 14 11 12
Creatinine 0.4 L 0.4 L 0.4 L
Estimated Creat Clear > 125 > 125 > 125
Albumin 2.0 L 1.9 L
--- NOTE | 2024-01-09 14:36 | CON.NEURO ---
Neuro Assessment/Plan
Assessment
IMPRESSIONS/RECOMMENDATIONS:
Abrupt change in LE movements
most likely due in part to restless legs syndrome which in turn is most likely secondary to the patient's anemia
Plan
The use of Dilaudid may mildly assist with the patient's restless leg syndrome, however would not rely on this as the major treatment modality
Would discontinue ropinirole and use instead Rotigotine patch 1mg daily
Ultimately, patient may benefit from the use of gabapentin or pregabalin when able to take by mouth
Goal of remediating the patient's anemia who also assist with her symptomatology which involves bilateral lower extremity discomfort
Will continue to follow patient. Thank you.
Consultation
Order
Date of Consultation: 01/09/24
Requesting Provider: Psychiatry
Reason for Consult: Restless leg syndrome
Subjective/Objective
Subjective Data
Date of Service: January 09, 2024
Patient is a limited historian due to lethargy.
As per records, the patient presented to this hospital on December 24, 2023, 5 days after initiation of left lower abdominal quadrant discomfort and fever. 2 months prior, the patient was treated recurrent diverticulitis at an outside hospital as well
as for Aspergillus lung infection. Subsequent evaluation indicated a large pericolonic abscess for which the patient underwent abscess drainage the following day.
The patient describes herself as having restless leg syndrome for an unclear timeframe treatment of this issue has included ropinirole since hospitalization. The patient herself indicates that she is not aware of discomfort in bilateral upper
extremities. She is not aware of other modifying factors.
In the past, patient has been exposed to deutetrabenazine for tardive dyskinesia which did not improve her symptomatology. Patient has had symptomatology resolve for the past year. Patient has had lithium exposure previously.
Objective Data
Vital Signs
Temp Pulse Resp BP Pulse Ox
36.9 C 75 11 140/78 98
01/09/24 11:11 01/09/24 14:05 01/09/24 14:05 01/09/24 13:01 01/09/24 14:05
Lab Results
01/09/24 04:57
01/09/24 04:57
PT 15.3 Sec (11.4-14.6) H 01/06/24 15:22
INR 1.21 01/06/24 15:22
APTT 35.6 Sec (23.4-35.0) H 01/06/24 15:22
Sodium 138 mmol/L (135-145) 01/09/24 04:57
Potassium 3.7 mmol/L (3.5-5.1) 01/09/24 04:57
BUN 12 mg/dl (7-17) 01/09/24 04:57
Glucose 59 mg/dl (70-99) L 01/09/24 04:57
Calcium 7.9 mg/dl (8.4-10.2) L 01/09/24 04:57
Phosphorus 3.0 mg/dl (2.5-4.5) 01/09/24 04:57
Patient Allergies
No Known Allergies Allergy (Unverified 12/24/23 15:13)
Review of Systems
-
Unable to obtain full review of systems at this time due to: Lethargy
History Source: Patient
All other systems: Reviewed and negative
Physical Exam
-
General: No Apparent Distress, Appears Stated Age and Other (NG tube in place)
Eyes: Round OU, [place] Conjunctivae and No Ptosis
HEENT: Anicteric and Moist Mucous Membranes
Neck: Full Range of Motion
Respiratory: No Dyspnea
Cardiac: No JVD
Extremities: No Clubbing, No Cyanosis and No Edema
Psych: Negative Intact Judgement/Insight
Extended Neurological Exam
Mood & Affect: Depressed and Anxious
Attention Span & Concentration: Awake, Interactive, Closes Eyes after Stimulation (After approximately 2 seconds) and Other (Moderate difficulty with single step requests;`)
Memory: Unremarkable
Tremor: Hand Tremor Absent and Head Tremor Absent
Speech: Quantity Unremarkable and Other (Some repetitive phrases)
Cranial Nerve II: Left Eye: Pupillary Size Unremarkable and Visual Garsia Grossly Intact
Cranial Nerve II: Right Eye: Pupillary Size Unremarkable and Visual Garsia Grossly Intact
Cranial Nerves III, IV, : Extraocular Movement: Grossly Intact
Cranial Nerve V: Facial Sensation: Unable to Assess
Cranial Nerve VII: Facial Symmetry: Normal Facial Symmetry
Cranial Nerve VIII: Hearing: Unremarkable Hearing to Normal Conversational Volume
Cranial Nerves IX, X: Palate Movement: Unable to Assess
Cranial Nerve XI: Shoulder Shrug: Unable to Assess
Cranial Nerve XII: Tongue Protusion: Unable to Assess
Muscle Strength, Overall: Spontaneously Moves (Nearly constantly in an up-and-down fashion bilateral lower extremities)
Muscle Bulk & Tone: Bulk Unremarkable and Tone Unremarkable
Pronator Drift: No Drift in Upper Extremities and No Drift in Lower Extremities
Deep Tendon Reflexes: Absent Throughout
Cold Sensation: Unable to Assess
Vibration Sensation: Unable to Assess
Coordination: Opfiri-mgwb-mccwhd Testing Unremarkable
Babinski Sign: Absent Bilaterally
Gait & Station: Unable to Assess
Medications
-
Active Medications
Generic Name Dose Route Start Last Admin
Trade Name Freq PRN Reason Stop Dose Admin
Acetaminophen 1,000 mg 01/07/24 11:23 01/07/24 18:24
Acetaminophen 500 Mg Tablet PO 02/04/24 11:22 1,000 mg
Q6HPRN PRN Administration
mild pain
Albuterol/Ipratropium 3 ml 01/05/24 14:00 01/09/24 14:04
Ipratropium 0.5/Albuterol 3 Mg (3 Ml Ampul) INH 3 ml
R TID CORY Administration
Protocol
Benzonatate 100 mg 12/24/23 21:08 01/01/24 18:15
Benzonatate 100 Mg Capsule PO 01/21/24 21:07 100 mg
TIDPRN PRN Administration
cough
Budesonide/Formoterol Fumarate 2 puff 01/05/24 20:00 01/09/24 07:50
Symbicort Inhaler 160/4.5 INH 02/02/24 19:59 2 puff
R BID CORY Administration
Protocol
Cholecalciferol 25 mcg 12/25/23 08:00 01/09/24 09:35
Cholecalciferol (Vitamin D3) 25 Mcg Tablet (1,000 Units) PO 01/22/24 07:59 25 mcg
DAILY CORY Administration
Cyclobenzaprine HCl 5 mg 01/07/24 10:09 01/08/24 08:34
Cyclobenzaprine 10 Mg Tablet PO 02/04/24 10:08 5 mg
Q8HPRN PRN Administration
restless legs
Divalproex Sodium 500 mg 12/30/23 22:00 01/08/24 21:17
Divalproex 500 Mg Extended Release (24 Hr) Tablet PO 01/27/24 21:59 500 mg
HS CORY Administration
Enoxaparin Sodium 40 mg 01/09/24 18:00
Enoxaparin Sodium 40 Mg/0.4 Ml Syringe SC 02/06/24 17:59
QPM CORY
Fluoxetine HCl 20 mg 01/09/24 13:31
Fluoxetine 20 Mg Capsule PO 01/22/24 07:59
DAILY CORY
Hydromorphone HCl 0.5 mg 01/07/24 20:08 01/08/24 08:28
Hydromorphone 0.5 Mg/0.5 Ml Syringe IV 01/21/24 20:07 0.5 mg
Q3HPRN PRN Administration
mod pain
Hydromorphone HCl 1 mg 01/08/24 09:30 01/09/24 13:20
Hydromorphone 1 Mg/Ml Carpuject IV 01/22/24 09:29 1 mg
Q3HPRN PRN Administration
severe pain
Sodium Chloride 1,000 mls @ 80 mls/hr 01/03/24 11:30 01/09/24 13:20
Nss IV 1,000 mls
.[id number] CORY Administration
Piperacillin Sod/Tazobactam Sod 3.375 gram in 50 mls @ 100 mls/hr 01/03/24 14:00 01/09/24 13:20
Zosyn IV 50 mls
Q6H CORY Administration
Nutrition (Parenteral) 890 ml in 890 mls @ 37 mls/hr 01/09/24 21:00
Parenteral Nutrition, Central IV 01/10/24 20:59
ONCE@2100 NR
Protocol
Per Protocol
Vancomycin HCl 1 each/ Device 0 mls @ 0 mls/hr 01/09/24 16:00
IV
PER PROTOCOL CORY
As Directed
Vancomycin HCl 2,000 mg/ 540 mls @ 270 mls/hr 01/09/24 14:12 01/09/24 14:22
Sodium Chloride IV 01/09/24 16:11 540 mls
NOW STA Administration
Montelukast Sodium 10 mg 12/25/23 18:00 01/08/24 16:36
Montelukast Sodium 10 Mg Tablet PO 01/22/24 17:59 10 mg
QPM CORY Administration
Naloxone HCl 0.04 mg 01/03/24 21:52
Naloxone (0.4 Mg/Ml) 1 Ml Injection IV 01/31/24 21:51
Q2MPRN PRN
RR </= 10/min / Pasero scale=4
Ondansetron HCl 4 mg 12/24/23 21:08 01/04/24 13:25
Ondansetron 4 Mg/2 Ml Vial IV 01/21/24 21:07 4 mg
Q6HPRN PRN Administration
NAUSEA/VOMITING
Pantoprazole Sodium 40 mg 12/25/23 08:00 01/09/24 09:37
Pantoprazole Sodium 40 Mg/10 Ml Vial IV 01/22/24 07:59 40 mg
DAILY CORY Administration
Ropinirole HCl 0.25 mg 01/07/24 12:00 01/09/24 09:35
Ropinirole 0.25 Mg Tablet PO 02/04/24 11:59 0.25 mg
TID CORY Administration
Sodium Chloride 0 flush 12/24/23 22:00
Sodium Chloride 0.9% (Flush) Syringe IV 01/21/24 21:59
PER PROTOCOL CORY
Sodium Chloride 10 ml 12/25/23 08:00 01/09/24 09:36
Sodium Chloride 0.9% (Preservative Free) 10 Ml Vial IV 01/22/24 07:59 10 ml
DAILY CORY Administration
Trazodone HCl 100 mg 01/07/24 13:54 01/08/24 21:17
Trazodone 100 Mg Tablet PO 02/04/24 13:53 100 mg
HSPRN PRN Administration
sleep
Voriconazole 200 mg 12/24/23 22:00 01/09/24 09:35
Voriconazole 200 Mg Tablet PO 02/02/24 21:59 200 mg
Q12H CORY Administration
Home Medications
�Medication �Instructions �Recorded
acetaminophen 500 mg tablet 1,000 mg PO Q6H PRN mild pain/fever 12/24/23
albuterol sulfate 90 mcg/actuation 2 puff inhalation R Q4 PRN 12/24/23
aerosol inhaler sob/wheezing
aspirin 81 mg tablet,delayed 81 mg PO DAILY Blood Clot 12/24/23
release Prevention/Tx
benzonatate 100 mg capsule 100 mg PO TID PRN cough 12/24/23
cholecalciferol (vitamin D3) 25 25 mcg PO DAILY Supplement 12/24/23
mcg (1,000 unit) tablet (Vitamin
D3)
fluoxetine 40 mg capsule (Prozac) 40 mg PO DAILY Mental 12/24/23
Health/Anxiety
fluticasone furoate 200 1 inh inhalation R DAILY 12/24/23
mcg-vilanterol 25 mcg/dose Lung/Breathing Issues
inhalation powder (Breo Ellipta)
ibuprofen 200 mg capsule 200 mg PO Q6H PRN mild pain/fever 12/24/23
ipratropium 0.5 mg-albuterol 3 mg 3 ml inhalation R TID 12/24/23
(2.5 mg base)/3 mL nebulization Lung/Breathing Issues
soln
melatonin 3 mg tablet 3 mg PO HS PRN sleep 12/24/23
montelukast 10 mg tablet 10 mg PO QPM ASTHMA 12/24/23
pantoprazole 40 mg tablet,delayed 40 mg PO DAILY Gastrointestinal 12/24/23
release Issue
quetiapine 50 mg tablet (Seroquel) 50 mg PO BID Mental Health/Anxiety 12/24/23
trazodone 100 mg tablet 200 mg PO HS Mental Health/Anxiety 12/24/23
voriconazole 200 mg tablet 200 mg PO Q12H 12/24/23
cefdinir 300 mg capsule 300 mg PO BID #28 caps 12/31/23
divalproex 500 mg tablet,extended 500 mg PO HS #30 tabs 12/31/23
release 24 hr
docusate sodium 100 mg capsule 100 mg PO BID #0 caps 12/31/23
metronidazole 500 mg tablet 500 mg PO TID #42 tabs 12/31/23
polyethylene glycol 3350 17 gram 17 g PO DAILY #0 ea 12/31/23
oral powder packet (HealthyLax)
sodium chloride 0.9 % (flush) 5 ml intra-catheter DAILY #2,500 mL 12/31/23
(Normal Saline Flush 0.9 %
injection syringe)
hydrocodone 5 mg-acetaminophen 325 1 tab PO Q8H PRN severe pain only 01/01/24
mg tablet #20 tabs
budesonide 0.5 mg/2 mL suspension 0.5 mg inhalation BIDPRN PRN sob 01/05/24
for nebulization
Past History
Past History
ED Past Medical History: Asthma and Other (Restless legs syndrome)
[2024-01-09 15:00] LABS: LDH 165 U/L (120-246); Total Protein 4.2 g/dl (6.3-8.2)
[2024-01-09] MEDS: NEUPRO 1 MG TRANSDERM (16:03)
[2024-01-09 16:49] LABS: TSH Reflex To Free T4 0.79 uIU/ml (0.47-4.68)
[2024-01-09 17:25] LABS: Folate 8.2 ng/ml (2.76-20); Vitamin B12 909 pg/ml (239-931)
[2024-01-09] MEDS: SINGULAIR 10 MG PO (17:46)
[2024-01-09] MEDS: LOVENOX 40 MG SC (17:46)
--- NOTE | 2024-01-09 20:41 | PTCARENOTE ---
Received pt from [facility]. Pt is AAOx2 (time), confused/forgetful, slow speech. Severe restless leg, PRN Flexeril given (see MAR). NSR/sinus tach w/ PVCs on the monitor, general +1 edema. On 6L NC O2 sat 96%, lungs coarse/rhonchi/diminished. R
nare NG tube in place to low intermittent suction. L colostomy in place. DAKOTA drains x2 in place. Midline incision dressing changed due to drainage (see worklist). TPN started infusing @ 37 ml/hr, through R PICC line. IVF infusing @ 80 ml/hr. SCDs in
place. Pt c/o abd pain, PRN pain medication given (see MAR). Hygiene provided. Pt is laying in bed with call richard in reach.
[2024-01-09] MEDS: FLEXERIL 5 MG PO (20:44)
[2024-01-09] MEDS: DILAUDID 0.5 MG IV (20:45)
[2024-01-09] MEDS: Parenteral Nutrition, Central 890 IV (20:49)
[2024-01-09] MEDS: DEPAKOTE ER (24 HR RELEASE) 500 MG PO (21:57)
[2024-01-09 23:48] LABS: Glucose - Point of Care 96 mg/dl (70-99)
[2024-01-10] VITALS (18 sets, daily range): BP systolic 133–167; BP diastolic 55–115; BMI 31.3
[2024-01-10] MEDS: DILAUDID 1 MG IV ×4 (01:27→20:07)
[2024-01-10] MEDS: ZOSYN 50 IV ×4 (01:27→20:06)
[2024-01-10] MEDS: DILAUDID 0.5 MG IV (04:00)
[2024-01-10 04:05] LABS: Hematocrit 27.2 % (37.0-47.0); Hemoglobin 8.8 g/dL (12.0-16.0); Mean Corp Hgb Conc. 32.4 g/dL (33.0-37.0); Mean Corpuscular Hgb 29.7 pg (27.0-31.0); Mean Corpuscular Volume 91.9 fL (81.0-99.0); Mean Platelet Volume 8.7 fL (7.4-10.4); Platelet Count 272 10^3/uL (130-400); Red Blood Cell Count 2.96 10^6/uL (4.20-5.40); Red Cell Dist. Width 15.4 % (11.5-14.5); White Blood Cell Count 12.2 10^3/uL (4.8-10.8)
[2024-01-10 04:35] LABS: Blood Urea Nitrogen 12 mg/dl (7-17); Calcium 8.4 mg/dl (8.4-10.2); Carbon Dioxide 30 mmol/L (22-30); Chloride 102 mmol/L (98-107); Estimated Creatinine Clearance > 125 ml/min; Glucose 107 mg/dl (70-99); Magnesium 2.1 mg/dl (1.6-2.3); Phosphorus 2.4 mg/dl (2.5-4.5); Potassium 3.6 mmol/L (3.5-5.1); Sodium 139 mmol/L (135-145); eGFR > 60.00
[2024-01-10] MEDS: NSS 1000 IV (04:56)
[2024-01-10] MEDS: VANCOCIN 275 MG IV (05:00)
[2024-01-10 06:24] LABS: Glucose - Point of Care 132 mg/dl (70-99)
[2024-01-10] MEDS: NEUPRO 1 MG TRANSDERM (07:51)
[2024-01-10] MEDS: PROZAC 20 MG PO (07:51)
[2024-01-10] MEDS: VITAMIN D3 (cholecalciferol) 25 MCG PO (07:51)
[2024-01-10] MEDS: PROTONIX IV 40 MG IV (07:52)
[2024-01-10] MEDS: NSS (PRESERVATIVE FREE) 10 ML IV (07:52)
[2024-01-10] MEDS: SYMBICORT 160/4.5 MCG INHALER 2 PUFF INH ×2 (07:59→20:10)
[2024-01-10] MEDS: DUONEB 3 ML INH ×3 (07:59→20:11)
--- NOTE | 2024-01-10 08:21 | W.PN.ID1 ---
Addendum entered and electronically signed by Deion Carter DO 01/10/24 12:59:
MRSA screen negative. Vancomycin discontinued.
Original Note:
Date of Service
Date of Service: January 10, 2024
Today's Communication
Continue abx.
Recheck CXR.
Assessment / Plan
Diverticulitis
Diverticular abscess status post IR drainage
S/p exploratory lap, colostomy (01/03/2024)
Leukocytosis
- Improved today.
LLL PNA by CXR
Hx Pulmonary aspergillosis; on prior Vfend as outpatient
Anxiety/depression
Hx steroid-induced psychosis
GERD
Recommendations:
Continue with Zosyn for the present. Vanco previously added for MRSA coverge. MRSA screen pending; if negative can D/C further vanco.
Recheck CXR (PA/Lat)
Continue to monitor white count and temperature curve.
Continue with voriconazole.
����������������������������������������������������������
Chief Complaint
-: Leukocytosis, Pneumonia and Other (Diverticulitis; diverticular abscess)
Subjective / Review of Systems
Review of Systems: No Fever, No Chills, No Cough and Abdominal Pain
Vital Signs / Physical Exam
Vital Signs
Vital Signs
Temp Pulse Resp BP Pulse Ox
99 F 101 20 151/57 91
01/10/24 07:42 01/10/24 08:00 01/10/24 08:00 01/10/24 07:00 01/10/24 08:00
Physical Exam
Constitutional: Comfortable, Chronically Ill and Non-toxic
Eyes: Sclera Anicteric
Cardiovascular: S1/S2; Negative S3/S4
Pulmonary: Rhonchi (few, scattered), Coarse and Non Labored
Gastrointestinal: Soft, Distended, Decreased Bowel Sounds, No Rebound and Other (colostomy)
Skin: Warm and Dry; Negative Rash or Jaundice
Neurological: Awake and Alert
Psychological: Calm
Objective Data
Lab Data
Lab Results
01/10/24 03:53
01/10/24 03:53
PT 15.3 Sec (11.4-14.6) H 01/06/24 15:22
INR 1.21 01/06/24 15:22
APTT 35.6 Sec (23.4-35.0) H 01/06/24 15:22
Estimated Creat Clear > 125 ml/min 01/10/24 03:53
Lactic Acid Cancelled 01/04/24 09:00
Total Bilirubin 0.4 mg/dl (0.2-1.3) 01/09/24 04:57
AST 22 U/L (14-36) 01/09/24 04:57
ALT < 10 U/L (0-35) 01/09/24 04:57
Alkaline Phosphatase 79 U/L (38-126) 01/09/24 04:57
Most recent labs reviewed.
Micro Results:
01/09/24 14:28 MRSA Screen - Pending
Nose
12/26/23 14:43 Blood Culture - Final
Blood/Venous No Growth - Final Report
12/26/23 12:59 Blood Culture - Final
Blood/Venous No Growth - Final Report
12/25/23 17:30 Wound Culture - Final
Abscess Escherichia coli
Escherichia coli#2
Streptococcus species
Group F Streptococcus
Gram Stain - Final
Wound/abscess/other Cult Final 12/28/23-820
Many 1st strain Escherichia coli
Few 2nd strain Escherichia coli
Many Streptococcus species of two morphotypes
Moderate Group F Streptococcus*
1. Escherichia coli
M.I.C. RX
--------- ---
Amoxicillin/Potas. Clavulanate 16/8 I
Ampicillin >16 R
Ampicillin/Sulbactam >16/8 R
Cefazolin >16 R
Cefepime <=2 S
Ceftazidime <=1 S
Ceftriaxone <=1 S
Ertapenem <=0.5 S
Ciprofloxacin <=0.25 S
Gentamicin >8 R
Levofloxacin <=0.5 S
Meropenem <=1 S
Piperacillin/Tazobactam <=16 S
Tobramycin 8 I
Trimethoprim/Sulfamethoxazole >38 R
2. Escherichia coli#2
M.I.C. RX
--------- ---
Amoxicillin/Potas. Clavulanate <=8/4 S
Ampicillin >16 R
Ampicillin/Sulbactam >16/8 R
Cefazolin 16 R
Cefepime <=2 S
Ceftazidime <=1 S
Ceftriaxone <=1 S
Ertapenem <=0.5 S
Ciprofloxacin <=0.25 S
Gentamicin <=4 S
Levofloxacin <=0.5 S
Meropenem <=1 S
Piperacillin/Tazobactam <=16 S
Tobramycin <=4 S
Trimethoprim/Sulfamethoxazole >/38 R
Imaging:
01/03/2024 CT abdomen/pelvis: Markedly decreased posterior true pelvis abscess in comparison to prior pre-op chest drainage study with pigtail drainage catheter seen in the soft tissues of the left posterior true pelvis. Massively distended right
colon including cecum (cecum measuring up to 12 cm) with marked maximal colonic stool as well as gaseous distention of transverse and proximal descending colon, moderate stool with distention of the distal descending and sigmoid colon, limited in
evaluation without oral contrast opacification. Thickening Of the wall of the distal descending and proximal sigmoid colon which could represent colitis or diverticulitis. Partially obstructing distal colonic mass with inflammation cannot be
excluded. No free air. Please see full dictation for additional detail.
--- NOTE | 2024-01-10 08:43 | W.PN.GS2 ---
Today's Communication / Plan
-
-- TPN
-- Toradol
-- Continue with drains and IV antibiotics
-- May need repeat CT scan in the days to come if continues to smolder and or WBC increases
Assessment / Plan
-
Assessment: 53 yo female with recent aspergillus pneumonia on O2 and on steroids presenting with complicated diverticulitis with large pelvic abscess
S/p IR drainage 12/25/2023.
S/p exploratory laparotomy with takedown of splenic flexure, creation end colostomy with omentectomy POD#7.
CT Abd/Pelvis (01/08/2024): Small amount of fluid within the inferior margin of the incision, scattered pockets of abdominal and pelvic ascites without definitive abscess, no large volume of free air, no evidence of contrast extravasation, diffuse
anasarca
Afebrile, tachycardic
Sepsis present on admission
Acute blood loss anemia requiring transfusion overnight (3 total), DAKOTA/ostomy outputs non-bloody, Hb stable
Smoldering infection related to underlying disease and gross contamination as found operatively. High risk and possibility of rectal stump blowout given operative findings, control with operative drain. May need repeat CT if no improvement.
Plan: TPN, monitor for re-feeding
NPO, IVF, NGT
Pain control: Tylenol, Toradol, IV Dilaudid PRN
Continue IV abx, multiple organisms in wound culture. Zosyn is culture sensitive.
DVT: Lovenox
GI: IV PPI
SCD's as tolerated for VTE ppx
Continue drains, purulent outputs noted
Subjective Data
-
Date of Service: January 10, 2024
Complains of abdominal pain. Reports mild nausea. Afebrile. No ambulation.
Objective Data
-
Intake and Output
01/09/24 01/10/24 01/11/24
06:59 06:59 06:59
Intake Total 1060 / 1060 2905 / 2905
Output Total 1190 / 1190 758 / 758
Balance -130 / -130 2147 / 2147
Intake:
IV fluids (Total) 960 / 960 1600 / 1600
IV piggybacks 100 / 100 690 / 690
TPN/PPN 370 / 370
Amount instilled into Drain ( 5 / 5
Total)
Left Lower Sacrum Cole-Olmos 5 / 5
A Placed in IR
Amount instilled into GI Tube ( 240 / 240
Total)
[place] Sump 240 / 240
Output:
Liquid stool amount 120 / 120
Colostomy 120 / 120
Drain Output (Total) 40 / 40 38 / 38
Left Abdomen Cole-Olmos 30 / 30 28 /
Left Lower Sacrum Cole-Olmos /
A Placed in IR
Gastrointestinal tube output ( 200 / 200
Total)
[place] Sump 200 / 200
Urine, Voided 350 / 350 400 / 400
Straight cath output 800 / 800
Other:
Number of approximated MODERATE 1
amounts of urine
Number of approximated LARGE 1
amounts of urine
How many times incontinent 1
SATURATED amount urine
Vital Signs
Temp Pulse Resp BP Pulse Ox
99 F 101 20 151/57 90
01/10/24 07:42 01/10/24 08:00 01/10/24 08:00 01/10/24 07:00 01/10/24 08:15
Lab Results
01/10/24 03:53
01/10/24 03:53
Calcium 8.4 mg/dl (8.4-10.2) 01/10/24 03:53
Phosphorus 2.4 mg/dl (2.5-4.5) L 01/10/24 03:53
Magnesium 2.1 mg/dl (1.6-2.3) 01/10/24 03:53
Total Bilirubin 0.4 mg/dl (0.2-1.3) 01/09/24 04:57
AST 22 U/L (14-36) 01/09/24 04:57
ALT < 10 U/L (0-35) 01/09/24 04:57
Alkaline Phosphatase 79 U/L (38-126) 01/09/24 04:57
Total Protein 4.2 g/dl (6.3-8.2) L 01/09/24 14:28
Albumin 1.9 g/dl (3.5-5.0) L 01/09/24 04:57
Physical Exam
-
Gen: NAD
HEENT: NGT with light bilious outputs
Abd: soft, diffusely tender, distended, focally peritoneal to lower abdomen, midline incision with central aspect of heaven opened, purulent fluid on gauze (replaced), ostomy viable with liquid stool, DAKOTA abd with purulent output, IR drain
transrectal serous
[2024-01-10] MEDS: TORADOL 10 MG IV ×3 (09:50→20:06)
[2024-01-10] MEDS: POTASSIUM PHOSPHATE 259.090899999999976 MEQ IV (09:50)
[2024-01-10] MEDS: VFEND 200 MG PO ×2 (09:51→22:24)
--- NOTE | 2024-01-10 10:13 | PHA.VAN.FU ---
Vancomycin Assessment / Plan
- Assessment
Renal Function: Stable
WBC's are: Trending Down
In the past 24 hrs, patient has been: Afebrile
Concomitant Antimicrobials: piperacillin/tazo; voriconazole
- Dosing Plan
Continue: vancomycin 1250 mg q12h - first dose 01/09 0600
- Monitoring Plan
No level(s) ordered at this time: consider levels when pt nears steady state
- Follow Up
Pharmacy will continue to follow.
Vancomycin Follow UP
- -
Patient Age: 53
Patient Sex: Female
Vancomycin Day #: 2
Indication: Pulmonary/Respiratory
Requesting Provider: Dr Leo
Pertinent Antimicrobial Allergies:
no known allergies
Height / Weight:
Height 5 ft 8 in
Actual Weight 93.5 kg
Pertinent Past Medical History: BMI 31; pulmonary aspergillosis as outpt; diverticular abscess s/p drainage
- Vital Signs / Lab Results
Temp Pulse Resp BP Pulse Ox
99 F 101 20 151/57 90
01/10/24 07:42 01/10/24 08:00 01/10/24 08:00 01/10/24 07:00 01/10/24 08:15
Lab Results - Hematology
01/08/24 01/09/24 01/10/24
04:53 04:57 03:53
WBC 15.0 H 14.7 H 12.2 H
Lab Results - Chemistry
01/08/24 01/09/24 01/10/24
04:53 04:57 03:53
BUN 11 12 12
Creatinine 0.4 L 0.4 L 0.4 L
Estimated Creat Clear > 125 > 125 > 125
Albumin 2.0 L 1.9 L
--- NOTE | 2024-01-10 10:58 | W.PN.HOSP.TC ---
Today's Communication/Plan
-
see bold
Assessment / Plan
Assessment / Plan
Gen: NAD, Awake and alert
Eyes: EOMI, PERRLA, no scleral icterus.
Neck: supple.
CV: RRR, +S1/S2, no m/r/g.
Resp: remains CTAB anteriorly, no rales, wheezes, or rhonchi.
Abd: remains +BS, soft, mild tenderness to palpation, ND.
Skin: No rashes.
Neuro: CN 2-12 intact, non-focal. Moving legs repetitively.
Psych: mostly calm
12/26/23 14:43 Blood/Venous Blood Culture - Final
No Growth - Final Report
12/26/23 12:59 Blood/Venous Blood Culture - Final
No Growth - Final Report
12/25/23 17:30 Abscess Wound Culture - Final
Escherichia coli
Escherichia coli#2
Streptococcus species
Group F Streptococcus
12/25/23 17:30 Abscess Gram Stain - Final
CT A/P 12/24/23:
1. Severe sigmoid diverticulitis with large complex pericolonic abscess in this region as described.
2. Probable chronic mild infectious/inflammatory bronchitis/bronchiolitis in the lung bases.
CT A/P 01/03/24: Markedly decreased posterior true pelvis abscess in comparison to prior pre-op chest drainage study with pigtail drainage catheter seen in the soft tissues of the left posterior true pelvis. Massively distended right colon including
cecum (cecum measuring up to 12 cm) with marked maximal colonic stool as well as gaseous distention of transverse and proximal descending colon, moderate stool with distention of the distal descending and sigmoid colon, limited in evaluation without
oral contrast opacification. Thickening Of the wall of the distal descending and proximal sigmoid colon which could represent colitis or diverticulitis. Partially obstructing distal colonic mass with inflammation cannot be excluded. No free air.
CT A/P 01/08/24:
1. Interval sigmoidectomy with creation of Sav pouch and diverting left lower quadrant colostomy. Midline laparotomy incision with small amount of fluid seen within the inferior margin of the incision.
2. Scattered pockets of abdominal and pelvic ascites with no definitive findings for fluid collection or abscess. Left transgluteal percutaneous drain remains in place with no significant abscess remaining within the left pelvis.
3. Small bilateral pleural effusions with adjacent atelectasis within the lower lobes.
4. Diffuse subcutaneous stranding/anasarca within both flanks and proximal thighs.
Sigmoid diverticulitis with abscess:
-h/o diverticulosis/diverticulitis
-s/p abscess drainage 12/25/23 by IR
-with findings of massively distended right colon including the cecum on CT scan of the abdomen pelvis on January 03, 2024 the patient was taken to the OR for Exploratory laparotomy, takedown splenic flexure, creation end colostomy, omentectomy
-cont Zosyn as per ID
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
-NGT removed 01/06/24, then replaced for STAT CT A/P 01/08/24, remains in place
-repeat CT A/P above without abscess
-currently on TPN
Acute blood loss anemia:
-s/p 3U pRBCs
Restless Legs:
-Seroquel stopped as Vfend increases serum concentration of Seroquel which could be the cause of the patient's restless legs.
-Trazodone dose decreased and made as needed
-was on Requip, now on Neupro patch
-Flexeril PRN (has helped recently)
Other problems:
h/o pulmonary Aspergillus: since Apr 2023. cont Vfend.
Hyperkalemia, resolved
HLD
GERD: cont PPI
Anxiety/depression: Continue Trazodone PRN/Prozac/Depakote. Seroquel stopped by psych.
FULL/Lovenox
Total time spent on today's encounter was 51 minutes which included time spent in counseling the patient/family regarding diagnosis and treatment plan as listed above, goals of care, and symptom management. Case was discussed with nursing staff,
specialists, and care coordinators/case management. All labs and imaging personally reviewed by me. Remainder the time spent in detailed review of previous records, lab data, imaging, and other medical provider documentation.
Anticipated Discharge: > 48 hours
Subjective/Interval History
-
Date of Service: January 10, 2024
No new complaints.
Objective Data
-
Labs:
Laboratory Results
01/10/24
03:53
WBC 12.2 H
Hgb 8.8 L
Hct 27.2 L
Plt Count 272
Sodium 139
Potassium 3.6
Chloride 102
Carbon Dioxide 30
BUN 12
Creatinine 0.4 L
Glucose 107 H
Calcium 8.4
Vital Signs:
Vital Signs
Temp Pulse Resp BP Pulse Ox
99 F 101 24 151/57 90
01/10/24 07:42 01/10/24 08:00 01/10/24 08:00 01/10/24 07:00 01/10/24 08:15
I&O
01/09/24 01/10/24 01/11/24
06:59 06:59 06:59
Intake Total 1060 / 1060 2905 / 2905
Output Total 1190 / 1190 758 / 758
Balance -130 / -130 2147 / 2147
[2024-01-10] MEDS: NSS IV (11:23)
--- NOTE | 2024-01-10 11:30 | W.PN.NEURO.1 ---
Today's Communication / Plan
-
Increase Rotigotine patch from 1mg to 2 mg daily
Neuro Assessment/Plan
Assessment
IMPRESSIONS/RECOMMENDATIONS:
Abrupt change in LE movements
most likely due in part to restless legs syndrome which in turn is most likely secondary to the patient's anemia
Plan
The use of Dilaudid may mildly assist with the patient's restless leg syndrome, however would not rely on this as the major treatment modality
Increase Rotigotine patch from 1mg to 2 mg daily
Ultimately, patient may benefit from the use of gabapentin or pregabalin when able to take by mouth
Goal of remediating the patient's anemia who also assist with her symptomatology which involves bilateral lower extremity discomfort
Will continue to follow patient.
Subjective/Objective
Subjective Data
Date of Service: January 10, 2024
'Improved.'
Objective Data
Vital Signs
Temp Pulse Resp BP Pulse Ox
37.2 C 101 24 151/57 90
01/10/24 07:42 01/10/24 08:00 01/10/24 08:00 01/10/24 07:00 01/10/24 08:15
Lab Results
01/10/24 03:53
01/10/24 03:53
PT 15.3 Sec (11.4-14.6) H 01/06/24 15:22
INR 1.21 01/06/24 15:22
APTT 35.6 Sec (23.4-35.0) H 01/06/24 15:22
Sodium 139 mmol/L (135-145) 01/10/24 03:53
Potassium 3.6 mmol/L (3.5-5.1) 01/10/24 03:53
BUN 12 mg/dl (7-17) 01/10/24 03:53
Glucose 107 mg/dl (70-99) H 01/10/24 03:53
Calcium 8.4 mg/dl (8.4-10.2) 01/10/24 03:53
Phosphorus 2.4 mg/dl (2.5-4.5) L 01/10/24 03:53
Vitamin B12 909 pg/ml (239-931) 01/09/24 04:57
Patient Allergies
No Known Allergies Allergy (Unverified 12/24/23 15:13)
Review of Systems
-
Unable to obtain full review of systems at this time due to: Lethargy
History Source: Patient
All other systems: Reviewed and negative
Physical Exam
-
General: No Apparent Distress, Appears Stated Age and Other (NG tube in place)
Eyes: Round OU, [place] Conjunctivae and No Ptosis
HEENT: Anicteric and Moist Mucous Membranes
Neck: Full Range of Motion
Respiratory: No Dyspnea
Cardiac: No JVD
Extremities: No Clubbing, No Cyanosis and No Edema
Psych: Negative Intact Judgement/Insight
Extended Neurological Exam
Mood & Affect: Depressed and Anxious
Attention Span & Concentration: Awake, Interactive, Closes Eyes after Stimulation (After approximately 2 seconds) and Other (Moderate difficulty with single step requests;`)
Memory: Unremarkable
Tremor: Hand Tremor Absent and Head Tremor Absent
Speech: Quality Unremarkable and Moderately Reduced Output
Cranial Nerve II: Left Eye: Pupillary Size Unremarkable and Visual Garsia Grossly Intact
Cranial Nerve II: Right Eye: Pupillary Size Unremarkable and Visual Garsia Grossly Intact
Cranial Nerves III, IV, : Extraocular Movement: Grossly Intact
Cranial Nerve V: Facial Sensation: Unable to Assess
Cranial Nerve VII: Facial Symmetry: Normal Facial Symmetry
Cranial Nerve VIII: Hearing: Unremarkable Hearing to Normal Conversational Volume
Cranial Nerves IX, X: Palate Movement: Unable to Assess
Cranial Nerve XI: Shoulder Shrug: Unable to Assess
Cranial Nerve XII: Tongue Protusion: Unable to Assess
Muscle Strength, Overall: Spontaneously Moves (Nearly constantly in an up-and-down fashion bilateral lower extremities)
Muscle Bulk & Tone: Bulk Unremarkable and Tone Unremarkable
Cold Sensation: Unable to Assess
Vibration Sensation: Unable to Assess
Gait & Station: Unable to Assess
--- NOTE | 2024-01-10 11:44 | PTCARENOTE ---
Patient taken to and from XRAY with RN.
[2024-01-10 12:22] LABS: Glucose - Point of Care 129 mg/dl (70-99)
--- NOTE | 2024-01-10 12:59 | W.PN.UPDATE ---
Update Note
Progress Note Update
spoke with nursing. dr diaz's note appreciated. i did not see patient as she was sleeping both times i attempted to see her and when at sleep her movements are at rest. would continue w current meds and ask dr panda to see patient in the am.
[2024-01-10] MEDS: DUONEB INH (14:38)
--- NOTE | 2024-01-10 15:13 | VATNOTE ---
During routine assessment, LUE noted to be significantly more swollen than pt's right arm. Pt states she has pain in her axilla. Left upper arm circumference measured 10 cm above the anticubital fossa is 34.2 cm. Left upper arm circumference at time
of midline placement was 32 cm. Midline discontinued at this time. notified and Left upper extremity peripheral vascular ultrasound recommended to r/o DVT. Verbal order taken. Pt's arm elevated. Pt refusing heat to arm at this time. Will continue
to monitor swelling.
--- NOTE | 2024-01-10 16:29 | PTCARENOTE ---
Patient with SEPIDEH Chavez at the bedside and updated per RN ability. Pt was c/o of pain to abdomen, 02/16, given Dilaudid per OCT. Pt also c/o of being hot, pt does appear slightly flushed in the face. Pt provided with fan and she requested an ice pack
for her neck. Temp was taken and 99.1. Pt still very restless while awake, moving legs, occasional trunk movement and pt breathing very shallow. SPO2 dropping to 86% while awake. Following patient falling asleep, SPO2 improved to 97%. Relaxation
music turned on in room. Assessment, care and VS as charted.
[2024-01-10] MEDS: LOVENOX 40 MG SC (17:43)
[2024-01-10] MEDS: SINGULAIR 10 MG PO (17:43)
[2024-01-10 18:11] LABS: Glucose - Point of Care 146 mg/dl (70-99)
--- NOTE | 2024-01-10 20:24 | PTCARENOTE ---
Received pt from [facility]. Pt is AAOx3, confused/forgetful. Pt w/ severe restless leg PRN Flexeril given (see MAR). NSR w/ PVCs on the monitor. On 6L O2, pt weaned to 5L O2 sat 97%, lungs coarse/rhonchi/diminished. R nare NG to low intermittent
suction. L colostomy in place. Jpx2 in place. Pt c/o abd pain, PRN Dilaudid given (see MAR). TPN infusing @ 37 ml/hr. Pt is laying in bed with call richard in reach.
[2024-01-10] MEDS: Parenteral Nutrition, Central 890 IV (22:13)
[2024-01-10] MEDS: DEPAKOTE ER (24 HR RELEASE) 500 MG PO (22:24)
[2024-01-10] MEDS: FLEXERIL 5 MG PO (22:30)
[2024-01-11] VITALS (14 sets, daily range): BP systolic 91–202; BP diastolic 54–126; PULSE 89; O2SAT 93; BMI 31.8
[2024-01-11 00:29] LABS: Glucose - Point of Care 137 mg/dl (70-99)
[2024-01-11] MEDS: TORADOL 10 MG IV ×4 (02:08→21:23)
[2024-01-11] MEDS: ZOSYN 50 IV ×4 (02:08→19:30)
[2024-01-11] MEDS: DILAUDID 1 MG IV ×4 (03:07→19:30)
[2024-01-11 03:50] LABS: ALT (SGPT) 10 U/L (0-35); AST (SGOT) 18 U/L (14-36); Albumin 2.1 g/dl (3.5-5.0); Alkaline Phosphatase 79 U/L (38-126); Blood Urea Nitrogen 16 mg/dl (7-17); Calcium 8.4 mg/dl (8.4-10.2); Carbon Dioxide 37 mmol/L (22-30); Chloride 103 mmol/L (98-107); Estimated Creatinine Clearance > 125 ml/min; Glucose 132 mg/dl (70-99); Phosphorus 2.5 mg/dl (2.5-4.5); Potassium 3.8 mmol/L (3.5-5.1); Sodium 142 mmol/L (135-145); Total Bilirubin 0.3 mg/dl (0.2-1.3); Total Protein 4.7 g/dl (6.3-8.2); Triglycerides 145 mg/dl (10-149); eGFR > 60.00
[2024-01-11 06:05] LABS: Glucose - Point of Care 141 mg/dl (70-99)
--- NOTE | 2024-01-11 07:07 | W.PN.NEURO.1 ---
Addendum entered and electronically signed by Wiliam Ribera MD 01/12/24 12:05:
Error below, should be continue Rotigotine patch 2mg with consideration for increase to 3 mg in next 1-2 days.
Original Note:
Today's Communication / Plan
-
-Remain off seroquel
-Minimize any new dopamine depleting medications (antipsychotics), seek to minimize anti nausea agents as able understanding nausea may still occur with her GI illness (Metoclopramide, prochlorperazine, promethazine have anti dopamine properties
that can worsen the movements)
-Continue Rotigotine patch 4 mg today, will consider increase to 6 mg tomorrow
Neuro Assessment/Plan
Assessment
53 year old being cared for diverticulitis with abscess
On seroquel, depakote, fluoexetine, trazodone at home.
Has required blood transfusions here for anemia
Dyskinesia like movement of the legs and trunk without previous history of restless legs type syndrome
Most likely combination of long hospitalization and metabolic derangements, presence of antipsychotic medication seroquel, very likely the iron deficiency associated with anemia (low iron commonly produces restless legs syndrome) are combining to
produce the observed abnormal movements.
Subjective/Objective
Subjective Data
Date of Service: January 11, 2024
No acute events overnight, some restless movements this morning, planned for drainage procedure shortly
Objective Data
Vital Signs
Temp Pulse Resp BP Pulse Ox
98.7 F 75 15 154/88 95
01/11/24 03:17 01/11/24 06:00 01/11/24 06:00 01/11/24 06:00 01/11/24 06:00
Lab Results
01/10/24 03:53
01/11/24 03:03
PT 15.3 Sec (11.4-14.6) H 01/06/24 15:22
INR 1.21 01/06/24 15:22
APTT 35.6 Sec (23.4-35.0) H 01/06/24 15:22
Sodium 142 mmol/L (135-145) 01/11/24 03:03
Potassium 3.8 mmol/L (3.5-5.1) 01/11/24 03:03
BUN 16 mg/dl (7-17) 01/11/24 03:03
Glucose 132 mg/dl (70-99) H 01/11/24 03:03
Calcium 8.4 mg/dl (8.4-10.2) 01/11/24 03:03
Phosphorus 2.5 mg/dl (2.5-4.5) 01/11/24 03:03
Vitamin B12 909 pg/ml (239-931) 01/09/24 04:57
Patient Allergies
No Known Allergies Allergy (Unverified 12/24/23 15:13)
Review of Systems
-
Constitutional: No Symptoms
EENT: No Symptoms Reported
Respiratory: No Symptoms
Cardiac: No Symptoms
Abdomen/GI: No Symptoms
Genitourinary: No Symptoms
Musculoskeletal: No Symptoms
Skin: No Symptoms
Neuro: See existing Neuro Note
Endocrine: No Symptoms
Hematologic / Lymphatic: No Symptoms
Allergy / Immunology: No Symptoms
Physical Exam
-
General: Appears in Distress and Appears Chronically Ill
Eyes: No Ptosis
HEENT: Normocephalic and Other (NG in place)
Neck: No Bruits Bilaterally
Respiratory: Clear to Auscultation
Cardiac: Regular Rhythm
GI: Non-distended and Tender
Extended Neurological Exam
Attention Span & Concentration: Awake, Alert and Interactive
Involuntary Movement: Other (Restless random movements of legs and trunk somewhat resembling dyskinesia or chrea, no abnormal orofacial movements, no tremor, not resembling myoclonus,)
Speech: Negative Expressive Aphasia or Receptive Aphasia
Cranial Nerve II: Left Eye: Pupillary Reactivity Unremarkable and Pupillary Size Unremarkable
Cranial Nerve II: Right Eye: Pupillary Reactivity Unremarkable and Pupillary Size Unremarkable
Pronator Drift: No Drift in Upper Extremities
[2024-01-11] MEDS: PROZAC 20 MG PO (07:48)
[2024-01-11] MEDS: PROTONIX IV 40 MG IV (07:48)
[2024-01-11] MEDS: NSS (PRESERVATIVE FREE) 10 ML IV (07:48)
[2024-01-11] MEDS: FLEXERIL 5 MG PO (07:48)
[2024-01-11] MEDS: VITAMIN D3 (cholecalciferol) 25 MCG PO (07:49)
[2024-01-11] MEDS: NEUPRO 2 MG TRANSDERM (07:49)
[2024-01-11] MEDS: DUONEB INH (08:20)
[2024-01-11] MEDS: SYMBICORT 160/4.5 MCG INHALER INH (08:20)
--- NOTE | 2024-01-11 09:33 | W.PN.HOSP.TC ---
Addendum entered and electronically signed by Luis M Davis MD 01/11/24 14:53:
updated brother Abel today.
Original Note:
Today's Communication/Plan
-
IVF/TPN/Abx.
Assessment / Plan
Assessment / Plan
Gen: NAD, Awake and alert
Eyes: EOMI, PERRLA, no scleral icterus.
Neck: supple.
CV: RRR, +S1/S2, no m/r/g.
Resp: remains CTAB anteriorly, no rales, wheezes, or rhonchi.
Abd: remains +BS, soft, mild tenderness to palpation, ND.
Skin: No rashes.
Neuro: CN 2-12 intact, non-focal. Moving legs repetitively.
Psych: mostly calm
12/26/23 14:43 Blood/Venous Blood Culture - Final
No Growth - Final Report
12/26/23 12:59 Blood/Venous Blood Culture - Final
No Growth - Final Report
12/25/23 17:30 Abscess Wound Culture - Final
Escherichia coli
Escherichia coli#2
Streptococcus species
Group F Streptococcus
12/25/23 17:30 Abscess Gram Stain - Final
CT A/P 12/24/23:
1. Severe sigmoid diverticulitis with large complex pericolonic abscess in this region as described.
2. Probable chronic mild infectious/inflammatory bronchitis/bronchiolitis in the lung bases.
CT A/P 01/03/24: Markedly decreased posterior true pelvis abscess in comparison to prior pre-op chest drainage study with pigtail drainage catheter seen in the soft tissues of the left posterior true pelvis. Massively distended right colon including
cecum (cecum measuring up to 12 cm) with marked maximal colonic stool as well as gaseous distention of transverse and proximal descending colon, moderate stool with distention of the distal descending and sigmoid colon, limited in evaluation without
oral contrast opacification. Thickening Of the wall of the distal descending and proximal sigmoid colon which could represent colitis or diverticulitis. Partially obstructing distal colonic mass with inflammation cannot be excluded. No free air.
CT A/P 01/08/24:
1. Interval sigmoidectomy with creation of Sav pouch and diverting left lower quadrant colostomy. Midline laparotomy incision with small amount of fluid seen within the inferior margin of the incision.
2. Scattered pockets of abdominal and pelvic ascites with no definitive findings for fluid collection or abscess. Left transgluteal percutaneous drain remains in place with no significant abscess remaining within the left pelvis.
3. Small bilateral pleural effusions with adjacent atelectasis within the lower lobes.
4. Diffuse subcutaneous stranding/anasarca within both flanks and proximal thighs.
A/P:
Sigmoid diverticulitis with abscess:
-h/o diverticulosis/diverticulitis
-s/p abscess drainage 12/25/23 by IR
-with findings of massively distended right colon including the cecum on CT scan of the abdomen pelvis on January 03, 2024 the patient was taken to the OR for Exploratory laparotomy, takedown splenic flexure, creation end colostomy, omentectomy
-cont Zosyn as per ID (day #19)
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
-NGT removed 01/06/24, then replaced for STAT CT A/P 01/08/24AM, remains in place
-Keep n.p.o. and IV fluids
-currently on TPN
-Plan to repeat CT scan of the abdomen per surgery
Hypoxia:
Multifactorial, pneumonia, atelectasis, pulmonary shunt, etc.
Continue oxygen supplementation
Asked pulmonary to reevaluate today
Taken for possible thoracentesis today but not enough fluid to be tapped.
Thrombosis left upper extremity:
Superficial thrombosis in the left basilic vein (no DVT)
On Lovenox 40 mg daily for prevention DVT and will be enough for above plus local care.
Acute blood loss anemia:
-Hemoglobin 7.9 today
-s/p 3U pRBCs
Restless Legs:
-Seroquel stopped as Vfend increases serum concentration of Seroquel which could be the cause of the patient's restless legs.
-Trazodone dose decreased and made as needed
-was on Requip, now on Neupro patch--> neuro considering increasing.
-Avoid antidopaminergic agents as much as possible
-Flexeril PRN (has helped recently)
Other problems:
h/o pulmonary Aspergillus: since Apr 2023. cont Vfend.
Hyperkalemia, resolved
HLD
GERD: cont PPI
Anxiety/depression: Continue Trazodone PRN/Prozac/Depakote. Seroquel stopped by psych.
FULL/Lovenox
Total time spent on today's encounter was 52 minutes which included time spent in counseling the patient/family regarding diagnosis and treatment plan as listed above, goals of care, and symptom management. Case was discussed with nursing staff,
specialists, and care coordinators/case management. All labs and imaging personally reviewed by me. Remainder the time spent in detailed review of previous records, lab data, imaging, and other medical provider documentation.
Anticipated Discharge: > 48 hours
Subjective/Interval History
-
Date of Service: January 11, 2024
Patient complains of abdominal discomfort. She had nausea on and off. Restless at times. She requires oxygen and desats quickly when taken off.
Objective Data
-
Labs:
Laboratory Results
01/11/24 01/11/24
03:03 09:00
WBC Pending
Hgb Pending
Hct Pending
Plt Count Pending
Sodium 142
Potassium 3.8
Chloride 103
Carbon Dioxide 37 H
BUN 16
Creatinine 0.3 L
Glucose 132 H
Calcium 8.4
Total Bilirubin 0.3
AST 18
ALT 10
Alkaline Phosphatase 79
Vital Signs:
Vital Signs
Temp Pulse Resp BP Pulse Ox
99.9 F 91 23 154/62 97
01/11/24 08:30 01/11/24 08:30 01/11/24 08:30 01/11/24 08:30 01/11/24 08:30
I&O
01/10/24 01/11/24 01/12/24
06:59 06:59 06:59
Intake Total 2905 / 2905 1802 / 1802
Output Total 758 / 758 575 / 575 225 / 225
Balance 2147 / 2147 1227 / 1227 -225 / -225
[2024-01-11] MEDS: VFEND 200 MG PO ×2 (10:08→21:24)
[2024-01-11 10:10] LABS: Hematocrit 23.8 % (37.0-47.0); Hemoglobin 7.9 g/dL (12.0-16.0); Mean Corp Hgb Conc. 33.2 g/dL (33.0-37.0); Mean Corpuscular Hgb 30.3 pg (27.0-31.0); Mean Corpuscular Volume 91.2 fL (81.0-99.0); Mean Platelet Volume 8.9 fL (7.4-10.4); Platelet Count 280 10^3/uL (130-400); Red Blood Cell Count 2.61 10^6/uL (4.20-5.40); Red Cell Dist. Width 15.7 % (11.5-14.5); White Blood Cell Count 10.4 10^3/uL (4.8-10.8)
--- NOTE | 2024-01-11 10:13 | W.PN.GS2 ---
Today's Communication / Plan
-
-- TPN
-- Repeat CT today versus tomorrow with rectal contrast
Assessment / Plan
-
Assessment: 53 yo female with recent aspergillus pneumonia on O2 and on steroids presenting with complicated diverticulitis with large pelvic abscess
S/p IR drainage 12/25/2023.
S/p exploratory laparotomy with takedown of splenic flexure, creation end colostomy with omentectomy POD#8
CT Abd/Pelvis (01/08/2024): Small amount of fluid within the inferior margin of the incision, scattered pockets of abdominal and pelvic ascites without definitive abscess, no large volume of free air, no evidence of contrast extravasation, diffuse
anasarca
Afebrile, tachycardic
Sepsis present on admission
Acute blood loss anemia requiring transfusion overnight (3 total), DAK[place]/ostomy outputs non-bloody, Hb stable
Smoldering infection related to underlying disease and gross contamination as found operatively. High risk and likekly rectal stump blowout given operative findings, control with drains. Will likely need repeat CT today versus tomorrow.
Plan: TPN, monitor for re-feeding
NPO, IVF, NGT
Pain control: Tylenol, Toradol, IV Dilaudid PRN
Continue IV abx, multiple organisms in wound culture. Zosyn is culture sensitive.
DVT: Lovenox
GI: IV PPI
SCD's as tolerated for VTE ppx
Continue drains, purulent outputs noted
Subjective Data
-
Date of Service: January 11, 2024
Depressed mental status, limited interactions. Reports abdominal discomfort. Mild nausea. Afebrile.
Objective Data
-
Intake and Output
01/10/24 01/11/24 01/12/24
06:59 06:59 06:59
Intake Total 2905 / 2905 1802 / 1802
Output Total 758 / 758 575 / 575 225 / 225
Balance 2147 / 2147 1227 / 1227 -225 / -225
Intake:
Oral fluids 0 / 0
IV fluids (Total) 1600 / 1600 320 / 320
IV piggybacks 690 / 690 460 / 460
TPN/PPN 370 / 370 777 / 777
Amount instilled into Drain ( 5
Total)
Left Lower Sacrum Cole[place]mos
A Placed in IR
Amount instilled into GI Tube ( 240 / 240 240 / 240
Total)
[place] [facility] Sump 240 / 240 240 / 240
Output:
Liquid stool amount 120 / 120 30 / 30
Colostomy 120 / 120 30 / 30
Drain Output (Total) 38 / 38 45 / 45
Left Abdomen [place]mos / 35 / 35
Left Lower Sacrum Cole-Olmos
A Placed in IR
Gastrointestinal tube output ( 200 / 200 300 / 300
Total)
[place] [facility] Sump 200 / 200 300 / 300
Urine, Voided 400 / 400 200 / 200 225 / 225
Other:
Number of approximated SMALL 1
amounts of urine
Number of approximated MODERATE 1 1
amounts of urine
Number of approximated LARGE 1
amounts of urine
Vital Signs
Temp Pulse Resp BP Pulse Ox
99.9 F 91 23 154/62 97
01/11/24 08:30 01/11/24 08:30 01/11/24 08:30 01/11/24 08:30 01/11/24 08:30
Lab Results
01/11/24 09:59
01/11/24 03:03
Calcium 8.4 mg/dl (8.4-10.2) 01/11/24 03:03
Phosphorus 2.5 mg/dl (2.5-4.5) 01/11/24 03:03
Magnesium 2.0 mg/dl (1.6-2.3) 01/11/24 03:03
Total Bilirubin 0.3 mg/dl (0.2-1.3) 01/11/24 03:03
AST 18 U/L (14-36) 01/11/24 03:03
ALT 10 U/L (0-35) 01/11/24 03:03
Alkaline Phosphatase 79 U/L (38-126) 01/11/24 03:03
Total Protein 4.7 g/dl (6.3-8.2) L 01/11/24 03:03
Albumin 2.1 g/dl (3.5-5.0) L 01/11/24 03:03
Physical Exam
-
Gen: NAD
Abd: soft, tender diffusely, distended, peritoneal, midline incision with opening in central aspect, drainage of purulent fluid, ostomy viable - stool and flatus in appliance, JPs purulent
--- NOTE | 2024-01-11 11:19 | W.PN.ID1 ---
Date of Service
Date of Service: January 11, 2024
Today's Communication
Continue with Zosyn (d#19)
Assessment / Plan
Diverticulitis
Diverticular abscess status post IR drainage
S/p exploratory lap, colostomy (01/03/2024)
Leukocytosis
- Improved.
LLL PNA by CXR
Hx Pulmonary aspergillosis; on prior Vfend as outpatient
Anxiety/depression
Hx steroid-induced psychosis
GERD
Recommendations:
Continue with Zosyn (d#19)
Follow CXR
Continue to monitor white count and temperature curve.
Continue with voriconazole.
����������������������������������������������������������
Chief Complaint
-: Leukocytosis, Pneumonia and Other (Diverticulitis; diverticular abscess)
Subjective / Review of Systems
Review of Systems: No Fever
Vital Signs / Physical Exam
Vital Signs
Vital Signs
Temp Pulse Resp BP Pulse Ox
99.9 F 91 23 154/62 97
01/11/24 08:30 01/11/24 08:30 01/11/24 08:30 01/11/24 08:30 01/11/24 08:30
Physical Exam
Constitutional: Comfortable, Chronically Ill and Non-toxic
Head: Normocephalic
Eyes: Sclera Anicteric
Cardiovascular: S1/S2; Negative S3/S4
Pulmonary: Rhonchi (few, scattered), Coarse and Non Labored
Gastrointestinal: Soft, Distended, Decreased Bowel Sounds, No Rebound and Other (colostomy)
Skin: Warm and Dry; Negative Rash or Jaundice
Psychological: Calm
Objective Data
Lab Data
Lab Results
01/11/24 09:59
01/11/24 03:03
PT 15.3 Sec (11.4-14.6) H 01/06/24 15:22
INR 1.21 01/06/24 15:22
APTT 35.6 Sec (23.4-35.0) H 01/06/24 15:22
Estimated Creat Clear > 125 ml/min 01/11/24 03:03
Lactic Acid Cancelled 01/04/24 09:00
Total Bilirubin 0.3 mg/dl (0.2-1.3) 01/11/24 03:03
AST 18 U/L (14-36) 01/11/24 03:03
ALT 10 U/L (0-35) 01/11/24 03:03
Alkaline Phosphatase 79 U/L (38-126) 01/11/24 03:03
Most recent labs reviewed.
Micro Results:
01/09/24 14:28 Nasal Screen MRSA (PCR) - Final
Nose MRSA not detected - performed by PCR methodology.
12/26/23 14:43 Blood Culture - Final
Blood/Venous No Growth - Final Report
12/26/23 12:59 Blood Culture - Final
Blood/Venous No Growth - Final Report
12/25/23 17:30 Wound Culture - Final
Abscess Escherichia coli
Escherichia coli#2
Streptococcus species
Group F Streptococcus
Gram Stain - Final
Wound/abscess/other Cult Final 12/28/23-0821
Many 1st strain Escherichia coli
Few 2nd strain Escherichia coli
Many Streptococcus species of two morphotypes
Moderate Group F Streptococcus*
1. Escherichia coli
M.I.C. RX
--------- ---
Amoxicillin/Potas. Clavulanate 16/8 I
Ampicillin >16 R
Ampicillin/Sulbactam >16/8 R
Cefazolin >16 R
Cefepime <=2 S
Ceftazidime <=1 S
Ceftriaxone <=1 S
Ertapenem <=0.5 S
Ciprofloxacin <=0.25 S
Gentamicin >8 R
Levofloxacin <=0.5 S
Meropenem <=1 S
Piperacillin/Tazobactam <=16 S
Tobramycin 8 I
Trimethoprim/Sulfamethoxazole >/38 R
2. Escherichia coli#2
M.I.C. RX
--------- ---
Amoxicillin/Potas. Clavulanate <=8/4 S
Ampicillin >16 R
Ampicillin/Sulbactam >16/8 R
Cefazolin 16 R
Cefepime <=2 S
Ceftazidime <=1 S
Ceftriaxone <=1 S
Ertapenem <=0.5 S
Ciprofloxacin <=0.25 S
Gentamicin <=4 S
Levofloxacin <=0.5 S
Meropenem <=1 S
Piperacillin/Tazobactam <=16 S
Tobramycin <=4 S
Trimethoprim/Sulfamethoxazole >38 R
Imaging:
01/03/2024 CT abdomen/pelvis: Markedly decreased posterior true pelvis abscess in comparison to prior pre-op chest drainage study with pigtail drainage catheter seen in the soft tissues of the left posterior true pelvis. Massively distended right
colon including cecum (cecum measuring up to 12 cm) with marked maximal colonic stool as well as gaseous distention of transverse and proximal descending colon, moderate stool with distention of the distal descending and sigmoid colon, limited in
evaluation without oral contrast opacification. Thickening Of the wall of the distal descending and proximal sigmoid colon which could represent colitis or diverticulitis. Partially obstructing distal colonic mass with inflammation cannot be
excluded. No free air. Please see full dictation for additional detail.
[2024-01-11 12:07] LABS: Glucose - Point of Care 115 mg/dl (70-99)
[2024-01-11] MEDS: DUONEB 3 ML INH ×2 (12:34→20:37)
--- NOTE | 2024-01-11 12:54 | PTCARENOTE ---
Rec'd pt this AM. restless, thrashing in the bed. PRN meds given as ordered. PT OOB with 2 assist with PT today. Requires a lot of prompting to move her feet and open her eyes but did cooperate. Currently OOB to chair.
--- NOTE | 2024-01-11 15:33 | WOUNDNOTE ---
WON RN NOTE: Appliance changed today, patient medicated earlier for pain, now drifting in and out of sleep. Attempted to do teaching with patient she is too groggy to comprehend. Will try again if able towards end of week, when patient able to
participate. Patient's sister in law was supposed to join teaching session but patient unsure if able to make it. Stoma pink and oval, budded, for soft stool. Peristomal skin intact. Supplies at bedside. Nurse reports she assessed sacrum when
ambulating patient and confirmed sacrum is intact. Heels are intact, pillow under calves.
--- NOTE | 2024-01-11 16:04 | W.PN.UPDATE ---
Update Note
Progress Note Update
Pt seen earlier in IR. US showed small left effusion. Pt unable to remain motionless for the procedure secondary to involuntary movements. Due to small size of effusion and pt motion, unable to safely perform US guided thoracentesis.
[2024-01-11 17:30] LABS: Glucose - Point of Care 123 mg/dl (70-99)
[2024-01-11] MEDS: SINGULAIR 10 MG PO (17:54)
[2024-01-11] MEDS: LOVENOX 40 MG SC (17:54)
--- NOTE | 2024-01-11 18:25 | PTCARENOTE ---
Pt did very well OOB to chair and using BSC. Able to stand with assistance, following directions better. ramains with restless legs and intermittent pain in abdomen. Abdominal dressing changed.
[2024-01-11] MEDS: SYMBICORT 160/4.5 MCG INHALER 2 PUFF INH (20:38)
[2024-01-11] MEDS: TYLENOL 1000 MG PO (21:23)
[2024-01-11] MEDS: DEPAKOTE ER (24 HR RELEASE) 500 MG PO (21:23)
[2024-01-11] MEDS: Parenteral Nutrition, Central 1220 IV (21:24)
--- NOTE | 2024-01-11 22:34 | PTCARENOTE ---
Received pt at change of shift. Pt c/o 04/19 pain; administered PRN dilaudid per order (see MAR). Pt able to tolerate all PO medications. NGT on hold for 1 hr after administration of PO medications and resumed to low int suction. Abd dressings
C/D/I at this time. TPN infusing at 51 ml/hr through R PICC. BP elevated d/t having to take on right leg and pt is very restless. Resting in bed with call richard in reach.
[2024-01-11 23:06] LABS: Glucose - Point of Care 134 mg/dl (70-99)
[2024-01-12] VITALS (12 sets, daily range): BP systolic 121–204; BP diastolic 63–118; PULSE 73; O2SAT 95; BMI 32.0
[2024-01-12] MEDS: TORADOL 10 MG IV ×4 (03:00→21:11)
[2024-01-12] MEDS: ZOSYN 50 IV ×4 (03:00→19:38)
[2024-01-12] MEDS: DILAUDID 1 MG IV ×4 (03:20→16:37)
[2024-01-12 03:21] LABS: % Basophils 0.4 % (0-2); % Eosinophils 0.8 % (0-6); % Immature Granulocytes 3.7 % (0-0.5); % Lymphocytes 9.6 % (20.5-51.1); % Neutrophils 73.5 % (42.2-75.2); Absolute Eosinophils 0.1 10^3/uL (0-0.7); Absolute Immature Granulocytes 0.4 10^3/uL (0-0.05); Absolute Lymphocytes 1.1 10^3/uL (1.2-3.4); Absolute Monocytes 1.4 10^3/uL (0.1-0.6); Absolute Neutrophils 8.3 10^3/uL (1.4-6.5); Hematocrit 27.2 % (37.0-47.0); Hemoglobin 8.7 g/dL (12.0-16.0); Mean Corpuscular Hgb 29.7 pg (27.0-31.0); Mean Corpuscular Volume 92.8 fL (81.0-99.0); Nucleated Red Blood Cells % 0 %; Platelet Count 295 10^3/uL (130-400); Red Blood Cell Count 2.93 10^6/uL (4.20-5.40); Red Cell Dist. Width 16.1 % (11.5-14.5); White Blood Cell Count 11.3 10^3/uL (4.8-10.8)
[2024-01-12 03:45] LABS: ALT (SGPT) 11 U/L (0-35); AST (SGOT) 22 U/L (14-36); Albumin 2.2 g/dl (3.5-5.0); Alkaline Phosphatase 84 U/L (38-126); Blood Urea Nitrogen 21 mg/dl (7-17); Carbon Dioxide 36 mmol/L (22-30); Chloride 103 mmol/L (98-107); Estimated Creatinine Clearance > 125 ml/min; Glucose 130 mg/dl (70-99); Magnesium 2.2 mg/dl (1.6-2.3); Phosphorus 2.7 mg/dl (2.5-4.5); Sodium 143 mmol/L (135-145); Total Bilirubin 0.4 mg/dl (0.2-1.3); eGFR > 60.00
[2024-01-12] MEDS: OMNIPAQUE 50 ML PO (06:13)
[2024-01-12 06:39] LABS: Glucose - Point of Care 139 mg/dl (70-99)
[2024-01-12] MEDS: FLEXERIL 5 MG PO ×2 (07:29→21:09)
[2024-01-12] MEDS: NEUPRO 2 MG TRANSDERM (07:29)
[2024-01-12] MEDS: PROTONIX IV 40 MG IV (07:30)
[2024-01-12] MEDS: VITAMIN D3 (cholecalciferol) 25 MCG PO (07:30)
[2024-01-12] MEDS: NSS (PRESERVATIVE FREE) 10 ML IV (07:30)
[2024-01-12] MEDS: PROZAC 20 MG PO (07:31)
[2024-01-12] MEDS: SYMBICORT 160/4.5 MCG INHALER 2 PUFF INH ×2 (07:42→19:18)
[2024-01-12] MEDS: DUONEB 3 ML INH ×3 (07:42→19:18)
--- NOTE | 2024-01-12 08:44 | W.PN.UPDATE ---
Update Note
Progress Note Update
Attempted to see, pt off floor for CT
--- NOTE | 2024-01-12 08:46 | W.PN.HOSP.TC ---
Addendum entered and electronically signed by Luis M Davis MD 01/12/24 15:59:
Acute hypoxic respiratory failure
Original Note:
Today's Communication/Plan
-
Antibiotics. NG tube. Oxygen.
Assessment / Plan
Assessment / Plan
Gen: NAD, Awake and alert
Eyes: EOMI, PERRLA, no scleral icterus.
Neck: supple.
CV: RRR, +S1/S2, no m/r/g.
Resp: remains CTAB anteriorly, no rales, wheezes, or rhonchi.
Abd: remains +BS, soft, mild tenderness to palpation, ND.
Skin: No rashes.
Neuro: CN 2-12 intact, non-focal. Moving legs repetitively.
Psych: mostly calm
12/26/23 14:43 Blood/Venous Blood Culture - Final
No Growth - Final Report
12/26/23 12:59 Blood/Venous Blood Culture - Final
No Growth - Final Report
12/25/23 17:30 Abscess Wound Culture - Final
Escherichia coli
Escherichia coli#2
Streptococcus species
Group F Streptococcus
12/25/23 17:30 Abscess Gram Stain - Final
CT A/P 12/24/23:
1. Severe sigmoid diverticulitis with large complex pericolonic abscess in this region as described.
2. Probable chronic mild infectious/inflammatory bronchitis/bronchiolitis in the lung bases.
CT A/P 01/03/24: Markedly decreased posterior true pelvis abscess in comparison to prior pre-op chest drainage study with pigtail drainage catheter seen in the soft tissues of the left posterior true pelvis. Massively distended right colon including
cecum (cecum measuring up to 12 cm) with marked maximal colonic stool as well as gaseous distention of transverse and proximal descending colon, moderate stool with distention of the distal descending and sigmoid colon, limited in evaluation without
oral contrast opacification. Thickening Of the wall of the distal descending and proximal sigmoid colon which could represent colitis or diverticulitis. Partially obstructing distal colonic mass with inflammation cannot be excluded. No free air.
CT A/P 01/08/24:
1. Interval sigmoidectomy with creation of Sav pouch and diverting left lower quadrant colostomy. Midline laparotomy incision with small amount of fluid seen within the inferior margin of the incision.
2. Scattered pockets of abdominal and pelvic ascites with no definitive findings for fluid collection or abscess. Left transgluteal percutaneous drain remains in place with no significant abscess remaining within the left pelvis.
3. Small bilateral pleural effusions with adjacent atelectasis within the lower lobes.
4. Diffuse subcutaneous stranding/anasarca within both flanks and proximal thighs.
CT A/P 01/12/24:
There is a focal predominantly fluid collection in the left upper quadrant, which contains an anterior air-fluid level, compatible with an abscess. This has increased compared to examination of January 08, 2024. Of note, this collection is along the
anterior margin of the spleen, without a well-defined plane between the collection and the spleen.
There is also an irregular fluid collection within the left pelvis as described, and superimposed infection of this collection cannot be excluded.
There is a pigtail catheter in the left posterior pelvis, entering to the left gluteal region, with no evidence of a collection adjacent to this catheter.
Subcutaneous edema, greater in both flanks.
Bilateral pleural effusions, left greater than right. Parenchymal opacity within both lower lobes, greater on the left compared to the right. This is most likely atelectasis, although underlying pneumonia difficult to completely exclude
radiographically.
A/P:
Sigmoid diverticulitis with abscess:
-h/o diverticulosis/diverticulitis
-s/p abscess drainage 12/25/23 by IR
-with findings of massively distended right colon including the cecum on CT scan of the abdomen pelvis on January 03, 2024 the patient was taken to the OR for Exploratory laparotomy, takedown splenic flexure, creation end colostomy, omentectomy
-cont Zosyn as per ID (day #19)
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
-NGT removed 01/06/24, then replaced for STAT CT A/P 01/08/24, remains in place
-Keep n.p.o. and IV fluids--> plan to clamp NG tube and possibly trial of oral diet today by surgery.
-currently on TPN
-Plan to repeat CT scan of the abdomen per surgery--> results as above and reviewed.
-Discussed with family over the phone yesterday and they are very adamant on talking to them if starting any new medication, also wants us to reach out to multiple outpatient specialists have seen her before.
Hypoxia:
Multifactorial, pneumonia, atelectasis, ?pulmonary shunt, etc.
Continue oxygen supplementation
Asked pulmonary to reevaluate yesterday and saw evaluation input today
Taken for possible thoracentesis on 01/10 but not enough fluid to be tapped.
Thrombosis left upper extremity:
Superficial thrombosis in the left basilic vein (no DVT)
On Lovenox 40 mg daily for prevention DVT and will be enough for above plus local care.
Acute blood loss anemia:
-Hemoglobin 8.7 today
-s/p 3U pRBCs
Restless Legs:
-Seroquel stopped as Vfend increases serum concentration of Seroquel which could be the cause of the patient's restless legs.
-Trazodone dose decreased and made as needed
-was on Requip, now on Neupro patch--> neuro considering increasing.
-Avoid antidopaminergic agents as much as possible
-Flexeril PRN (has helped recently)
Other problems:
h/o pulmonary Aspergillus: since Apr 2023. cont Vfend.
Hyperkalemia, resolved
HLD
GERD: cont PPI
Anxiety/depression: Continue Trazodone PRN/Prozac/Depakote. Seroquel stopped by psych.
FULL/Lovenox
Total time spent on today's encounter was 52 minutes which included time spent in counseling the patient/family regarding diagnosis and treatment plan as listed above, goals of care, and symptom management. Case was discussed with nursing staff,
specialists, and care coordinators/case management. All labs and imaging personally reviewed by me. Remainder the time spent in detailed review of previous records, lab data, imaging, and other medical provider documentation.
Anticipated Discharge: > 48 hours
Subjective/Interval History
-
Date of Service: January 12, 2024
Patient overall better. Afebrile
Objective Data
-
Labs:
Laboratory Results
01/12/24
03:05
WBC 11.3 H
Hgb 8.7 L
Hct 27.2 L
Plt Count 295
Sodium 143
Potassium 4.0
Chloride 103
Carbon Dioxide 36 H
BUN 21 H
Creatinine 0.3 L
Glucose 130 H
Calcium 9.0
Total Bilirubin 0.4
AST 22
ALT 11
Alkaline Phosphatase 84
Vital Signs:
Vital Signs
Temp Pulse Resp BP Pulse Ox
97.9 F 89 20 176/66 93
01/12/24 07:43 01/12/24 07:47 01/12/24 07:47 01/12/24 06:00 01/12/24 07:47
I&O
01/11/24 01/12/24 01/13/24
06:59 06:59 06:59
Intake Total 1802 / 1802 1129 / 1129
Output Total 575 / 575 555 / 555
Balance 1227 / 1227 574 / 574
--- NOTE | 2024-01-12 09:43 | W.PN.PUL.V3 ---
Today's Communication / Plan
-
Wean oxygen
Incentive spirometry
Mucus clearing devices
Nebulizers/Symbicort/Singulair
Assessment
-
53-year-old female with past medical history of recurrent diverticulitis, pulmonary aspergillosis, hyperlipidemia, anxiety/depression, and GERD who presents with abdominal pain. She apparently was recently treated for diverticulitis in October 2023
with Augmentin at [facility] in [place] where she resides. She also reported that she was treated this month for ongoing fungal lung infection with Aspergillus and also given additional antibiotics but unknown what names of these
medications are. She developed a fever about 5 days ago and continues to be on Augmentin for last 3 days. She was visiting her mother in [place] prior to arrival when the pain in her left lower quadrant became severe so she came here to the
hospital for further care. She was afebrile in the ER to 98.6 �F, 79 pulse rate, breathing at 16 breaths/min, normotensive at 133/77 and saturating 100% on room air. Labs showed leukocytosis to 21.2, mild anemia to 11.5, mild hyponatremia to 134,
mild hyperkalemia to 5.6, and negative lipase of <10. CT A/P on admission showed severe sigmoid diverticulitis with large pericolonic abscess. She was given pain medications in the ER + Levaquin + IV fluids with NS x1L, and admitted to the
hospitalist service with general surgery consulted and antibiotics were started with Zosyn. She underwent IR CT-guided drainage on 12/24 with 170 cc of pale green purulent material seen - this later grew E. coli and group F Streptococcus. Patient
continues to be managed on the floor and was having issues with constipation. Repeat CT A/P performed on 01/02 showing decrease size in the abscess with pigtail drainage catheter seen in place, with massively distended right colon including the
cecum with stool distention and continued suspected distal descending colon/sigmoid diverticulitis. Given patient's worsening pain with distention and no flatus or BM in about 4 days, patient underwent exploratory laparotomy with splenic flexure
takedown, creation of end colostomy and omentectomy on 01/03/2024, and transferred to the ICU postoperatively. There was 150 cc of EBL and no immediate complications. Patient was stabilized and sent to the floor and pulmonary was reconsulted
01/12/2024 with ongoing hypoxemia.
#Sigmoid diverticulitis s/p exploratory laparotomy with splenic flexure takedown, end colostomy creation and omentectomy � POD #3
#Sigmoid diverticulitis c/b large pericolonic abscess s/p IR CT-guided drainage on 12/24 with purulent fluid growing E. coli + group F Streptococcus
#Constipation
#Leukocytosis
#Acute on chronic anemia (unknown baseline but she has been between 8.5�11.5g/dL since admission)
#Lower lobe pulmonary bronchiectasis � likely due to her history of chronic pulmonary aspergillosis diagnosed in fall 2022
#History of pulmonary aspergillosis on voriconazole
Plan:
Respiratory status still somewhat tenuous likely related to left lower lobe atelectasis/possible pneumonia
Supplemental oxygen as needed
Aspiration precautions
Incentive spirometry
Acapella
Mucus clearing devices
DuoNebs
Singulair continues
Patient takes Breo as an outpatient
Follow radiographically
Cultures reviewed
Antibiotics continue-Zosyn day #20
Infectious disease following-correspondence reviewed
Surgery following
CT abdomen pending
Nasogastric tube per surgery
Nephrology following-correspondence reviewed
Restless legs still an issue
Rotigotine patch transdermally will be increased
DVT prophylaxis-on Lovenox
GI prophylaxis-on Protonix
Nutrition per surgery
Eventual physical therapy/Occupational Therapy
Outpatient pulmonary follow-up
Subjective Data
-
Date of Service:
Date of Service: January 12, 2024
Chief Complaint: Pulmonary Follow Up and Dyspnea Follow Up
Subjective:
Complains of restless legs, does not complain of shortness of breath at rest, no chest pain, productive cough, has some mild abdominal distention and pain
Review of Systems
General: Other (Per HPI)
Objective Data
Data Reviewed
Vital Signs / I&O:
Vital Signs
Temp Pulse Resp BP Pulse Ox
97.9 F 89 20 176/66 93
01/12/24 07:43 01/12/24 07:47 01/12/24 07:47 01/12/24 06:00 01/12/24 07:47
Intake and Output
01/11/24 01/12/24 01/13/24
06:59 06:59 06:59
Intake Total 1802 / 1802 1129 / 1129
Output Total 575 / 575 555 / 555
Balance 1227 / 1227 574 / 574
SaO2: 93
Nasal Cannula flow liters per minute: 4
Physical Exam
General: Respiratory Distress (n) and Comfortable
HEENT: Normocephalic, Anicteric and Moist Mucous Membranes
Cardiovascular: Regular Rhythm
Respiratory: Wheeze (n), Crackles (Left basilar), Rhonchi (n), Non-Labored Respirations, Accessory Resp Muscle Use (n) and Stridor (n)
GI: Soft, Distended and Tender
Neurology: Awake, Alert and No Motor Deficits
Skin: Warm, Good Color, Cyanosis (n), Jaundice (n) and Rash
Labs/Micro/Reports
Lab Data
01/12/24 03:05
01/12/24 03:05
Microbiology
01/09/24 14:28 Nose Nasal Screen MRSA (PCR) - Final
MRSA not detected - performed by PCR methodology.
--- NOTE | 2024-01-12 10:11 | W.PN.NEURO.1 ---
Today's Communication / Plan
-
Increase Rotigotine patch from 2 mg to 3 mg daily
Neuro Assessment/Plan
Assessment
53 year old being cared for diverticulitis with abscess
On seroquel, depakote, fluoexetine, trazodone at home.
Has required blood transfusions here for anemia
Most likely combination of long hospitalization and metabolic derangements, presence of antipsychotic medication seroquel, very likely the iron deficiency associated with anemia (low iron commonly produces restless legs syndrome) are combining to
produce the observed abnormal movements.
Plan
The use of Dilaudid may mildly assist with the patient's restless leg syndrome, however would not rely on this as the major treatment modality
Increase Rotigotine patch from 2 mg to 3 mg daily
Ultimately, patient may benefit from the use of gabapentin or pregabalin when able to take by mouth
Goal of remediating the patient's anemia who also assist with her symptomatology which involves bilateral lower extremity discomfort
Will continue to follow as outpatient.
Subjective/Objective
Subjective Data
Date of Service: January 12, 2024
Continues to improve. No side effects with current medication
Objective Data
Vital Signs
Temp Pulse Resp BP Pulse Ox
36.6 C 89 20 176/66 93
01/12/24 07:43 01/12/24 07:47 01/12/24 07:47 01/12/24 06:00 01/12/24 09:43
Lab Results
01/12/24 03:05
01/12/24 03:05
PT 15.3 Sec (11.4-14.6) H 01/06/24 15:22
INR 1.21 01/06/24 15:22
APTT 35.6 Sec (23.4-35.0) H 01/06/24 15:22
Sodium 143 mmol/L (135-145) 01/12/24 03:05
Potassium 4.0 mmol/L (3.5-5.1) 01/12/24 03:05
BUN 21 mg/dl (7-17) H 01/12/24 03:05
Glucose 130 mg/dl (70-99) H 01/12/24 03:05
Calcium 9.0 mg/dl (8.4-10.2) 01/12/24 03:05
Phosphorus 2.7 mg/dl (2.5-4.5) 01/12/24 03:05
Vitamin B12 909 pg/ml (239-931) 01/09/24 04:57
Patient Allergies
No Known Allergies Allergy (Unverified 12/24/23 15:13)
Review of Systems
-
History Source: Patient
All other systems: Reviewed and negative
Physical Exam
-
General: No Apparent Distress, Appears Stated Age and Other (NG tube in place)
Eyes: Round OU, [place] Conjunctivae and No Ptosis
HEENT: Anicteric and Moist Mucous Membranes
Neck: Full Range of Motion
Respiratory: No Dyspnea
Cardiac: No JVD
Extremities: No Clubbing, No Cyanosis and No Edema
Psych: Intact Judgement/Insight
Extended Neurological Exam
Mood & Affect: Depressed
Attention Span & Concentration: Awake, Interactive and Closes Eyes after Stimulation (After 3 seconds)
Memory: Unremarkable
Tremor: Hand Tremor Absent and Head Tremor Absent
Speech: Quality Unremarkable and Mildly Reduced Output
Cranial Nerve II: Left Eye: Pupillary Size Unremarkable and Visual Garsia Grossly Intact
Cranial Nerve II: Right Eye: Pupillary Size Unremarkable and Visual Garsia Grossly Intact
Cranial Nerves III, IV, : Extraocular Movement: Grossly Intact
Cranial Nerve V: Facial Sensation: Unable to Assess
Cranial Nerve VII: Facial Symmetry: Normal Facial Symmetry
Cranial Nerve VIII: Hearing: Unremarkable Hearing to Normal Conversational Volume
Cranial Nerves IX, X: Palate Movement: Unable to Assess
Cranial Nerve XI: Shoulder Shrug: Unable to Assess
Cranial Nerve XII: Tongue Protusion: Unable to Assess
Muscle Strength, Overall: Spontaneously Moves (Nearly constantly in an up-and-down fashion bilateral lower extremities)
Muscle Bulk & Tone: Bulk Unremarkable and Tone Unremarkable
Gait & Station: Unable to Assess
Data Reviewed
-
Labs: Report Reviewed
Reviewed with: Nurse Practioner and Patient
Old Records: Summarized
[2024-01-12] MEDS: VFEND 200 MG PO ×2 (11:13→21:10)
--- NOTE | 2024-01-12 11:19 | W.PN.GS2 ---
Today's Communication / Plan
-
IR
TPN
Assessment / Plan
-
Assessment: 53 yo female with recent aspergillus pneumonia on O2 and on steroids presenting with complicated diverticulitis with large pelvic abscess
S/p IR drainage 12/25/2023.
S/p exploratory laparotomy with takedown of splenic flexure, creation end colostomy with omentectomy POD#9
CT Abd/Pelvis (01/08/2024): Small amount of fluid within the inferior margin of the incision, scattered pockets of abdominal and pelvic ascites without definitive abscess, no large volume of free air, no evidence of contrast extravasation, diffuse
anasarca
Low grade temps, tachycardia resolved
Sepsis present on admission
Acute blood loss anemia requiring transfusion (3 total), DAKOTA/ostomy outputs non-bloody, Hb stable
Smoldering infection related to underlying disease and gross contamination as found operatively. High risk for rectal stump blowout given operative findings, control with drains.
CT A/P with rim enhancing fluid collection in gastrosplenic region, less well defined collection LLQ around the drain
Plan: Consult IR for LUQ collection drain
TPN to cont
NPO, IVF, NGT
Pain control: Tylenol, Toradol, IV Dilaudid PRN
Continue IV abx per ID recs
DVT: Lovenox
GI: IV PPI
SCD's as tolerated for VTE ppx
Subjective Data
-
Date of Service: January 12, 2024
Low grade temps, otherwise VSS. Reports feeling slightly better. Denies n/v. Stoma functioning.
Objective Data
-
Intake and Output
01/11/24 01/12/24 01/13/24
06:59 06:59 06:59
Intake Total 1802 / 1802 1129 / 1129
Output Total 575 / 575 555 / 555
Balance 1227 / 1227 574 / 574
Intake:
Oral fluids 0 / 0
IV fluids (Total) 320 / 320
IV piggybacks 460 / 460 200 / 200
TPN/PPN 777 / 777 929 / 929
Amount instilled into Drain ( 5 / 5
Total)
Left Lower Sacrum Cole-Olmos 5 / 5
A Placed in IR
Amount instilled into GI Tube ( 240 / 240
Total)
Hendry Sump 240 / 240
Output:
Liquid stool amount 30 / 30 50 / 50
Colostomy 30 / 30 50 / 50
Drain Output (Total) 45 / 45 30 / 30
Left Abdomen Cole-Olmos 35 / 35
Left Lower Sacrum Cole-Olmos 10 / 10 30 / 30
A Placed in IR
Gastrointestinal tube output ( 300 / 300
Total)
Hendry Sump 300 / 300
Urine, Voided 200 / 200 475 / 475
Other:
Number of approximated SMALL 1 1
amounts of urine
Number of approximated MODERATE 1
amounts of urine
Vital Signs
Temp Pulse Resp BP Pulse Ox
97.9 F 89 20 176/66 93
01/12/24 07:43 01/12/24 07:47 01/12/24 07:47 01/12/24 06:00 01/12/24 09:43
Lab Results
01/12/24 03:05
01/12/24 03:05
Calcium 9.0 mg/dl (8.4-10.2) 01/12/24 03:05
Phosphorus 2.7 mg/dl (2.5-4.5) 01/12/24 03:05
Magnesium 2.2 mg/dl (1.6-2.3) 01/12/24 03:05
Total Bilirubin 0.4 mg/dl (0.2-1.3) 01/12/24 03:05
AST 22 U/L (14-36) 01/12/24 03:05
ALT 11 U/L (0-35) 01/12/24 03:05
Alkaline Phosphatase 84 U/L (38-126) 01/12/24 03:05
Total Protein 5.0 g/dl (6.3-8.2) L 01/12/24 03:05
Albumin 2.2 g/dl (3.5-5.0) L 01/12/24 03:05
Physical Exam
-
Gen: NAD
Abd: soft, ttp to left hemiabdomen, purulent output from midline wound, turbid output in the LLQ bulb though in the tubing it appears clear ss, posterior drain bulb with clear ss fluid
[2024-01-12 12:11] LABS: Glucose - Point of Care 124 mg/dl (70-99)
--- NOTE | 2024-01-12 13:56 | OR.RPT ---
Operative Report
Operative Report
Primary Surgeon: Klever
Pre-op Diagnosis: Sigmoid diverticulitis
Post-op Diagnosis: Same
Procedure Performed: Exploratory laparotomy, takedown splenic flexure, creation end colostomy, omentectomy
Anesthesia Type: GETA
Specimen / Cultures: None
Estimated Blood Loss: 150cc
Complications: None immediate
DOS: 01/03/24
Indications: Large bowel obstruction secondary to severe sigmoid diverticulitis.
Operative Findings: Severely distended cecum and transverse colon with serosal tears resulting from the distention; serosal tears repaired with 2-0 silk lembert sutures, severely inflamed and firm sigmoid totally socked in at the LLQ; blunt finger
fracture used to liberate sigmoid from abd wall as much as possible but due to concern with this degree of scarring either from severe diverticulitis or possible malignancy (the tissue appeared to invade the ab wall superficially) mobilization of
this area was limited due to the extent of the scarring and concern for nearby iliac vessels; very friable distal sigmoid stump, staple line held but unable to oversew as the tissue would not hold suture; Unable to reach previously placed IR drain,
this was left in situ; 19fr rolanda drain placed into LLQ and pelvis around the stump; inferior pole spleen with capsular tear, an expected occurrence during splenic flexure takedown, controlled with direct pressure and cautery; single small bowel
serosal tear, an expected occurrence due to the friability of the tissues and distension, repaired with 2-0 silk lembert sutures. Approx 1L of liquid stool milked from the colon, descending colon colostomy. May develop ileus, NGT placed in OR and
confirmed in the stomach.
Operation in detail:
The patient was placed on the operating table in the supine position. General anesthesia was induced. A time-out was completed verifying correct patient, procedure, site, positioning, and special equipment prior to beginning this procedure. The
abdomen was prepped and draped in the usual sterile fashion. A midline incision was made with cut cautery and carried down tot he linea alba with electrocautery. The linea alba was carefully opened and the abdomen entered. Immediately a severely
distended transverse and right colon was encountered. Attention was turned to the left lower quadrant and an area of densely scarred and inflamed sigmoid colon was identified, with dense adhesions to the pelvic sidewall. Mobilization of the left
colon was performed along the avascular lateral plane starting from the most distal healthy colon and working cephalad. The splenic flexure was taken down by alternating approaches from inferior to superior and medial to lateral. A capsular tear at
the inferior pole of the spleen, an expected occurrence during flexure takedown was identified and controlled with packing. Attention was turned to the left lower quadrant. The sigmoid appeared to be invading the lateral pelvic wall in this area.
Through careful blunt dissection and finger fracture technique the area was mobilized. There was significant oozing and this tissue was both very firm and also friable. The sigmoid mobilization was attempted more distally but due to difficulty with
visualization deep in the pelvis, the severity of the inflammation and the oozing this was abandoned. A window was created bluntly in the sigmoid mesentery proximal to the diseased segment and the sigmoid was transected with a GISELA purple load
stapler. The inferior staple line opened immediately. The lumen in this area was narrowed and the colon wall very thick. A second firing of the stapler just below the first was successful. Oversewing the stump staple line with lembert sutures with
2-0 silk was attempted but the colon tissue was so friable it did not hold suture. Attention was turned to the transverse and ascending colon. These were massively dilated. The distal staple line was opened and about 1 liter of stool was milked into
a basin and removed from the field. Large serosal tears at the cecum and proximal transverse colon were noted. These appeared to be secondary to the massive distention. These were repaired with 2-0 silk lembert sutures. A small serosal tear in a
segment of small bowel was noted, this is an expected occurrence from the lysis of adhesions performed around the inflamed segment of colon. This was repaired with 2-0 silk lembert sutures. Attention was turned to the distal left colon at the site
of transection. It appeared viable. An incision was made in the abdominal wall at the left upper quadrant, away from the midline incision, and a full thickness elliptical section of skin was removed with cut cautery. Subcutaneous fat was cored out
with electrocautery and the anterior fascia was incised with cut cautery in cruciate fashion. The deeper layers of the abdominal wall were opened bluntly and dilated until two fingerbreadths passed easily through the opening. The left upper quadrant
laparotomy pads were removed and the inferior pole of the spleen was cauterized. Hemostasis was assured. The transected end of the descending colon was brought out through the incision and clamped gently with a lc. A 19 barbadian rolanda drain was
placed into the left pelvis about the sigmoid stump and secured to the skin with 2-0 nylon suture.A nasogastric tube was placed and palpated in the stomach. The abdomen was irrigated with copious sterile saline. The midline wound was closed with #1
PDS stratafix suture. The subcutaneous tissue was irrigated with sterile saline and the skin was closed with heaven. The colostomy was matured with 2-0 vicryl sutures. It appeared viable. An ostomy appliance, drain dressing and an aquacel dressing
to the midline wound were placed.
The patient tolerated the procedure well and was taken to the postanesthesia care unit in stable condition.
--- NOTE | 2024-01-12 14:23 | W.PN.UPDATE ---
Update Note
Progress Note Update
Pt seen, sitting up in chair; continues to have dyskinesia, involving feet, legs, trunk. Pt c/o symptoms in her arms as well, had difficulty putting on chap stick. Neurology is titrating up Rotigotine patch. Pt c/o feeling mentally 'foggy',
having trouble formulating answers to questions about her history. Pt states she had an episode of dyskinesia last year when on [place] plus antipsychotic- not sure which med. 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
Seroquel for a period of months prior to admission. She states history of previously being tried on a series of antipsychotic meds for mood d/o. Current mood is depressed/dysphoric, with recent fears/anxiety. Pt does not show signs of mima or
psychosis.
Imp: Unspecified depressive d/o, in setting of long hx of mood d/o
Dyskinesia of unclear etiology, possibly related to hx of exposure to series of antipsychotic medications
Rec: will continue Prozac (tapered to 20 mg daily), Depakote ER, Trazodone prn; Rotigotine patch per Neurology
will follow
--- NOTE | 2024-01-12 15:03 | PN.CDI ---
CDI
- -
CDI:
Physician Documentation Request
Admit Date: 12/24/23 20:43
Dear Doctor Susan,
Please review the following and provide your response in the progress notes.
Clinical Indicators:
- 01/07 RN note 'resltess legs, thrashing in bed. O2 sat down to 88% on 4L, increased to 6L'
- 'Desatting to the mid 80s on 3 L d/t pain; increased to 6L with pulse ox now 97%'
- 01/08 RN note 'She remains on 6L NC. She is tachypneic when she is awake'
- 01/07-01/10 6L O2, pulse ox > 87%
- 01/10 PN 'Hypoxia: Multifactorial, pneumonia, atelectasis, pulmonary shunt, etc'
Clarify which of the following accurately represents the patient's respiratory status:
Acute hypoxic respiratory failure
Hypoxia only
Other
Additional information for Respiratory Failure:
Recognized criteria for Respiratory Failure (Source: [facility] Jun 2013)
ABGs: (1 or more) Symptoms Please indicate type if known
1. p)2 <60 or RA SPO2 <91% on RA 1. Tachypnea, SOB, dyspnea Hypoxic
2. pCO2 50 and pH <7.35 2. Use of accessory muscles Hypercapnic
3. pO2 decrease of pCO2 increase by 3. Pallor or cyanosis Hypoxic and Hypercapnic
10 mmHg from baseline if known 4. Anxiety or restlessness Unable to determine
5. Unable to speak in full sentences
Supplemental O2 of > 40% (5LPM) Intubation is not required
Use of terms such as suspected, likely, concern for, or probable (associated with a specific diagnosis that is being evaluated, monitored, or treated as if it exists) are acceptable and can be coded in the inpatient setting, when documented at the
time of discharge.
Thank you,
Bob Lee RN
CDI Specialist
Please use your independent medical judgment in providing your response.
--- NOTE | 2024-01-12 15:29 | W.PN.ID1 ---
Date of Service
Date of Service: January 12, 2024
Today's Communication
Continue abx.
Assessment / Plan
Diverticulitis
Diverticular abscess status post IR drainage
S/p exploratory lap, colostomy (01/03/2024)
Leukocytosis
Hx Pulmonary aspergillosis; on prior Vfend as outpatient
Anxiety/depression
Hx steroid-induced psychosis
GERD
Recommendations:
Very slow improvement.
Continue with Zosyn (d#20)
Follow CXR
Continue to monitor white count and temperature curve.
Continue with voriconazole.
����������������������������������������������������������
Chief Complaint
-: Leukocytosis, Pneumonia and Other (Diverticulitis; diverticular abscess)
Subjective / Review of Systems
Review of Systems: No Fever
Vital Signs / Physical Exam
Vital Signs
Vital Signs
Temp Pulse Resp BP Pulse Ox
98.1 F 73 18 152/117 96
01/12/24 11:27 01/12/24 13:52 01/12/24 13:52 01/12/24 11:18 01/12/24 13:52
Physical Exam
Constitutional: Comfortable, Chronically Ill and Non-toxic
Head: Normocephalic
Eyes: No Conjunctival Hemorrhage and Sclera Anicteric
Cardiovascular: S1/S2; Negative S3/S4
Pulmonary: Rhonchi (few, scattered), Coarse and Non Labored
Gastrointestinal: Soft, Tender (lower abdomen), Distended (mild), Decreased Bowel Sounds, No Rebound and Other (colostomy)
Skin: Warm and Dry; Negative Rash or Jaundice
Psychological: Calm
Objective Data
Lab Data
Lab Results
01/12/24 03:05
01/12/24 03:05
PT 15.3 Sec (11.4-14.6) H 01/06/24 15:22
INR 1.21 01/06/24 15:22
APTT 35.6 Sec (23.4-35.0) H 01/06/24 15:22
Estimated Creat Clear > 125 ml/min 01/12/24 03:05
Lactic Acid Cancelled 01/04/24 09:00
Total Bilirubin 0.4 mg/dl (0.2-1.3) 01/12/24 03:05
AST 22 U/L (14-36) 01/12/24 03:05
ALT 11 U/L (0-35) 01/12/24 03:05
Alkaline Phosphatase 84 U/L (38-126) 01/12/24 03:05
Most recent labs reviewed.
Micro Results:
01/09/24 14:28 Nasal Screen MRSA (PCR) - Final
Nose MRSA not detected - performed by PCR methodology.
12/26/23 14:43 Blood Culture - Final
Blood/Venous No Growth - Final Report
12/26/23 12:59 Blood Culture - Final
Blood/Venous No Growth - Final Report
12/25/23 17:30 Wound Culture - Final
Abscess Escherichia coli
Escherichia coli#2
Streptococcus species
Group F Streptococcus
Gram Stain - Final
Wound/abscess/other Cult Final 12/28/23-0821
Many 1st strain Escherichia coli
Few 2nd strain Escherichia coli
Many Streptococcus species of two morphotypes
Moderate Group F Streptococcus*
1. Escherichia coli
M.I.C. RX
--------- ---
Amoxicillin/Potas. Clavulanate 16/8 I
Ampicillin >16 R
Ampicillin/Sulbactam >16/8 R
Cefazolin >16 R
Cefepime <=2 S
Ceftazidime <=1 S
Ceftriaxone <=1 S
Ertapenem <=0.5 S
Ciprofloxacin <=0.25 S
Gentamicin >8 R
Levofloxacin <=0.5 S
Meropenem <=1 S
Piperacillin/Tazobactam <=16 S
Tobramycin 8 I
Trimethoprim/Sulfamethoxazole >/38 R
2. Escherichia coli#2
M.I.C. RX
--------- ---
Amoxicillin/Potas. Clavulanate <=8/4 S
Ampicillin >16 R
Ampicillin/Sulbactam >16/8 R
Cefazolin 16 R
Cefepime <=2 S
Ceftazidime <=1 S
Ceftriaxone <=1 S
Ertapenem <=0.5 S
Ciprofloxacin <=0.25 S
Gentamicin <=4 S
Levofloxacin <=0.5 S
Meropenem <=1 S
Piperacillin/Tazobactam <=16 S
Tobramycin <=4 S
Trimethoprim/Sulfamethoxazole >/38 R
Imaging:
01/03/2024 CT abdomen/pelvis: Markedly decreased posterior true pelvis abscess in comparison to prior pre-op chest drainage study with pigtail drainage catheter seen in the soft tissues of the left posterior true pelvis. Massively distended right
colon including cecum (cecum measuring up to 12 cm) with marked maximal colonic stool as well as gaseous distention of transverse and proximal descending colon, moderate stool with distention of the distal descending and sigmoid colon, limited in
evaluation without oral contrast opacification. Thickening Of the wall of the distal descending and proximal sigmoid colon which could represent colitis or diverticulitis. Partially obstructing distal colonic mass with inflammation cannot be
excluded. No free air. Please see full dictation for additional detail.
Care Review
Plan reviewed with: Physician (Gen Lopez.)
[2024-01-12] MEDS: LOVENOX 40 MG SC (16:39)
[2024-01-12] MEDS: SINGULAIR 10 MG PO (16:39)
[2024-01-12 18:44] LABS: Glucose - Point of Care 111 mg/dl (70-99)
--- NOTE | 2024-01-12 19:15 | PTCARENOTE ---
Rec'd pt this AM. Pt OOB to chair and BSC with 2 assist but improved ability to ambulate. remains anxious, restless, complained of pain. meds given.
--- NOTE | 2024-01-12 19:33 | PTCARENOTE ---
Per Dr. Ernst, pt requires IRAD drainage of fluid. Keep NGT clamped until after procedure, then return to low intermittent suction until tomorrow. Info communicated to nightshift TABITHA.
--- NOTE | 2024-01-12 20:10 | PTCARENOTE ---
Received pt from [facility]. Pt is AAOx3, severe restless leg (PRN Flexeril given, see MAR), slow speech, forgetful @ times, repeats herself. NSR w/PVCs on the monitor. On 4L NC O2 sat 96%, lungs coarse/rhonchi/diminished. Pt uses BP, abd
round/obese. Right NG tube in place, per [facility] NG tube to stay clamped till after procedure in IR then place back on low-intermittent suction. TPN infusing through right PICC @ 51 ml/hr. Left colostomy in place. DAKOTA drains x2. Midline incision,
wound care provided. SCDs in place. Mouth care and hygiene provided. Pt is laying in bed with call richard in reach.
[2024-01-12] MEDS: Parenteral Nutrition, Central 1220 IV (21:05)
[2024-01-12] MEDS: DEPAKOTE ER (24 HR RELEASE) 500 MG PO (21:10)
[2024-01-12 23:35] LABS: Glucose - Point of Care 120 mg/dl (70-99)
[2024-01-13] VITALS (29 sets, daily range): BP systolic 76–251; BP diastolic 69–168; PULSE 89; O2SAT 98; BMI 32.5
[2024-01-13] MEDS: DILAUDID 1 MG IV ×4 (00:11→21:28)
[2024-01-13] MEDS: ZOSYN 50 IV ×4 (01:37→19:26)
[2024-01-13] MEDS: TORADOL 10 MG IV (03:36)
[2024-01-13 04:16] LABS: % Basophils 0.3 % (0-2); % Eosinophils 1.1 % (0-6); % Immature Granulocytes 3.1 % (0-0.5); % Monocytes 12.4 % (1.7-9.3); % Neutrophils 75.1 % (42.2-75.2); Absolute Eosinophils 0.1 10^3/uL (0-0.7); Absolute Immature Granulocytes 0.4 10^3/uL (0-0.05); Absolute Monocytes 1.5 10^3/uL (0.1-0.6); Absolute Neutrophils 9.2 10^3/uL (1.4-6.5); Hemoglobin 8.3 g/dL (12.0-16.0); Mean Corp Hgb Conc. 31.9 g/dL (33.0-37.0); Mean Corpuscular Hgb 30.3 pg (27.0-31.0); Mean Corpuscular Volume 94.9 fL (81.0-99.0); Mean Platelet Volume 9.3 fL (7.4-10.4); Nucleated Red Blood Cells % 0 %; Platelet Count 278 10^3/uL (130-400); Red Blood Cell Count 2.74 10^6/uL (4.20-5.40); Red Cell Dist. Width 16.4 % (11.5-14.5); White Blood Cell Count 12.3 10^3/uL (4.8-10.8)
[2024-01-13 06:09] LABS: Glucose - Point of Care 124 mg/dl (70-99)
[2024-01-13] MEDS: DILAUDID 0.5 MG IV ×2 (06:45→14:04)
[2024-01-13] MEDS: SYMBICORT 160/4.5 MCG INHALER 2 PUFF INH (07:52)
[2024-01-13] MEDS: DUONEB 3 ML INH ×3 (07:52→20:12)
--- NOTE | 2024-01-13 08:22 | W.PN.HOSP.TC ---
Today's Communication/Plan
-
IV antibiotics. Plan for IR drain today.
Assessment / Plan
Assessment / Plan
Gen: NAD, Awake and alert
Eyes: EOMI, PERRLA, no scleral icterus.
Neck: supple.
CV: RRR, +S1/S2, no m/r/g.
Resp: remains CTAB anteriorly, no rales, wheezes, or rhonchi.
Abd: remains +BS, soft, mild tenderness to palpation, ND.
Skin: No rashes.
Neuro: CN 2-12 intact, non-focal. Moving legs repetitively.
Psych: mostly calm
12/26/23 14:43 Blood/Venous Blood Culture - Final
No Growth - Final Report
12/26/23 12:59 Blood/Venous Blood Culture - Final
No Growth - Final Report
12/25/23 17:30 Abscess Wound Culture - Final
Escherichia coli
Escherichia coli#2
Streptococcus species
Group F Streptococcus
12/25/23 17:30 Abscess Gram Stain - Final
CT A/P 12/24/23:
1. Severe sigmoid diverticulitis with large complex pericolonic abscess in this region as described.
2. Probable chronic mild infectious/inflammatory bronchitis/bronchiolitis in the lung bases.
CT A/P 01/03/24: Markedly decreased posterior true pelvis abscess in comparison to prior pre-op chest drainage study with pigtail drainage catheter seen in the soft tissues of the left posterior true pelvis. Massively distended right colon including
cecum (cecum measuring up to 12 cm) with marked maximal colonic stool as well as gaseous distention of transverse and proximal descending colon, moderate stool with distention of the distal descending and sigmoid colon, limited in evaluation without
oral contrast opacification. Thickening Of the wall of the distal descending and proximal sigmoid colon which could represent colitis or diverticulitis. Partially obstructing distal colonic mass with inflammation cannot be excluded. No free air.
CT A/P 01/08/24:
1. Interval sigmoidectomy with creation of Sav pouch and diverting left lower quadrant colostomy. Midline laparotomy incision with small amount of fluid seen within the inferior margin of the incision.
2. Scattered pockets of abdominal and pelvic ascites with no definitive findings for fluid collection or abscess. Left transgluteal percutaneous drain remains in place with no significant abscess remaining within the left pelvis.
3. Small bilateral pleural effusions with adjacent atelectasis within the lower lobes.
4. Diffuse subcutaneous stranding/anasarca within both flanks and proximal thighs.
CT A/P 01/12/24:
There is a focal predominantly fluid collection in the left upper quadrant, which contains an anterior air-fluid level, compatible with an abscess. This has increased compared to examination of January 08, 2024. Of note, this collection is along the
anterior margin of the spleen, without a well-defined plane between the collection and the spleen.
There is also an irregular fluid collection within the left pelvis as described, and superimposed infection of this collection cannot be excluded.
There is a pigtail catheter in the left posterior pelvis, entering to the left gluteal region, with no evidence of a collection adjacent to this catheter.
Subcutaneous edema, greater in both flanks.
Bilateral pleural effusions, left greater than right. Parenchymal opacity within both lower lobes, greater on the left compared to the right. This is most likely atelectasis, although underlying pneumonia difficult to completely exclude
radiographically.
A/P:
Sigmoid diverticulitis with abscess:
-h/o diverticulosis/diverticulitis
-s/p abscess drainage 12/25/23 by IR
-with findings of massively distended right colon including the cecum on CT scan of the abdomen pelvis on January 03, 2024 the patient was taken to the OR for Exploratory laparotomy, takedown splenic flexure, creation end colostomy, omentectomy
-cont Zosyn as per ID (day #19)
-IV Dilaudid PRN (was on dilaudid [facility]ATH[facility] APPRENTICE prior)
-NGT removed 01/06/24, then replaced for STAT CT A/P 01/08/24AM, remains in place
-Keep n.p.o. and IV fluids
-currently on TPN
-Plan repeated CT scan of the abdomen per surgery--> results as above and reviewed.
-Discussed with family over the phone prior. Plan for IR drain today. Possible advance diet after procedure per surgery.
Hypoxia:
Multifactorial, pneumonia, atelectasis, ?pulmonary shunt, etc.
Continue oxygen supplementation
Asked pulmonary to reevaluate yesterday and saw evaluation input today
Taken for possible thoracentesis on 01/10 but not enough fluid to be tapped.
Thrombosis left upper extremity:
Superficial thrombosis in the left basilic vein (no DVT)
On Lovenox 40 mg daily for prevention DVT and will be enough for above plus local care.
Acute blood loss anemia:
-Hemoglobin 8.7 today
-s/p 3U pRBCs
Restless Legs:
-Seroquel stopped as Vfend increases serum concentration of Seroquel which could be the cause of the patient's restless legs.
-Trazodone dose decreased and made as needed
-was on Requip, now on Neupro patch--> neuro considering increasing.
-Avoid antidopaminergic agents as much as possible
-Flexeril PRN (has helped recently)
Other problems:
h/o pulmonary Aspergillus: since Apr 2023. cont Vfend.
Hyperkalemia, resolved
HLD
GERD: cont PPI
Anxiety/depression: Continue Trazodone PRN/Prozac/Depakote. Seroquel stopped by psych.
FULL/Lovenox
Total time spent on today's encounter was 52 minutes which included time spent in counseling the patient/family regarding diagnosis and treatment plan as listed above, goals of care, and symptom management. Case was discussed with nursing staff,
specialists, and care coordinators/case management. All labs and imaging personally reviewed by me. Remainder the time spent in detailed review of previous records, lab data, imaging, and other medical provider documentation.
Anticipated Discharge: > 48 hours
Subjective/Interval History
-
Date of Service: January 13, 2024
Patient seen and examined
Objective Data
-
Labs:
Laboratory Results
01/13/24
03:48
WBC 12.3 H
Hgb 8.3 L
Hct 26.0 L
Plt Count 278
Vital Signs:
Vital Signs
Temp Pulse Resp BP Pulse Ox
99.6 F 87 20 163/123 94
01/13/24 04:28 01/13/24 07:54 01/13/24 07:54 01/13/24 04:02 01/13/24 07:54
I&O
01/12/24 01/13/24 01/14/24
06:59 06:59 06:59
Intake Total 1129 / 1129 1399 / 1399
Output Total 555 / 555 1280 / 1280
Balance 574 / 574 119 / 119
[2024-01-13] MEDS: NSS (PRESERVATIVE FREE) 10 ML IV (08:53)
[2024-01-13] MEDS: PROTONIX IV 40 MG IV (08:55)
[2024-01-13] MEDS: PROZAC 20 MG PO (08:57)
[2024-01-13] MEDS: NEUPRO 3 MG TRANSDERM (08:57)
[2024-01-13] MEDS: VITAMIN D3 (cholecalciferol) 25 MCG PO (08:57)
[2024-01-13] MEDS: VFEND 200 MG PO ×2 (09:14→21:30)
--- NOTE | 2024-01-13 09:38 | W.PN.ID1 ---
Date of Service
Date of Service: January 13, 2024
Today's Communication
Continue Zosyn. Await IR drainage of left upper quadrant collection.
Assessment / Plan
Diverticulitis
Diverticular abscess status post IR drainage
S/p exploratory lap, colostomy (01/03/2024)
Leukocytosis
LUQ collection
Hx Pulmonary aspergillosis; on prior Vfend as outpatient
Anxiety/depression
Hx steroid-induced psychosis
GERD
Recommendations:
Very slow improvement despite adequate antibiotic coverage.
Current issue may be left upper quadrant collection; for IR drainage today. Please send cultures of drainage.
Continue Zosyn for today.
Follow CXR
Continue to monitor white count and temperature curve.
Continue with voriconazole.
����������������������������������������������������������
Chief Complaint
-: Leukocytosis, Pneumonia and Other (Diverticulitis; diverticular abscess)
Subjective / Review of Systems
Review of Systems: No Fever
Vital Signs / Physical Exam
Vital Signs
Vital Signs
Temp Pulse Resp BP Pulse Ox
99.4 F 87 20 163/123 94
01/13/24 07:30 01/13/24 07:54 01/13/24 07:54 01/13/24 04:02 01/13/24 07:54
Physical Exam
Constitutional: Comfortable, Chronically Ill and Non-toxic
Head: Normocephalic
Eyes: No Conjunctival Hemorrhage and Sclera Anicteric
Cardiovascular: S1/S2; Negative S3/S4
Pulmonary: Rhonchi (few, scattered), Coarse and Non Labored
Gastrointestinal: Soft, Tender (lower abdomen), Distended (mild), Decreased Bowel Sounds, No Rebound and Other (colostomy)
Skin: Warm and Dry; Negative Rash or Jaundice
Psychological: Calm
Objective Data
Lab Data
Lab Results
01/13/24 03:48
01/12/24 03:05
PT 15.3 Sec (11.4-14.6) H 01/06/24 15:22
INR 1.21 01/06/24 15:22
APTT 35.6 Sec (23.4-35.0) H 01/06/24 15:22
Estimated Creat Clear > 125 ml/min 01/12/24 03:05
Lactic Acid Cancelled 01/04/24 09:00
Total Bilirubin 0.4 mg/dl (0.2-1.3) 01/12/24 03:05
AST 22 U/L (14-36) 01/12/24 03:05
ALT 11 U/L (0-35) 01/12/24 03:05
Alkaline Phosphatase 84 U/L (38-126) 01/12/24 03:05
Most recent labs reviewed.
Micro Results:
01/09/24 14:28 Nasal Screen MRSA (PCR) - Final
Nose MRSA not detected - performed by PCR methodology.
12/26/23 14:43 Blood Culture - Final
Blood/Venous No Growth - Final Report
12/26/23 12:59 Blood Culture - Final
Blood/Venous No Growth - Final Report
12/25/23 17:30 Wound Culture - Final
Abscess Escherichia coli
Escherichia coli#2
Streptococcus species
Group F Streptococcus
Gram Stain - Final
Wound/abscess/other Cult Final 12/28/23-820
Many 1st strain Escherichia coli
Few 2nd strain Escherichia coli
Many Streptococcus species of two morphotypes
Moderate Group F Streptococcus*
1. Escherichia coli
M.I.C. RX
--------- ---
Amoxicillin/Potas. Clavulanate 16/8 I
Ampicillin >16 R
Ampicillin/Sulbactam >16/8 R
Cefazolin >16 R
Cefepime <=2 S
Ceftazidime <=1 S
Ceftriaxone <=1 S
Ertapenem <=0.5 S
Ciprofloxacin <=0.25 S
Gentamicin >8 R
Levofloxacin <=0.5 S
Meropenem <=1 S
Piperacillin/Tazobactam <=16 S
Tobramycin 8 I
Trimethoprim/Sulfamethoxazole >38 R
2. Escherichia coli#2
M.I.C. RX
--------- ---
Amoxicillin/Potas. Clavulanate <=8/4 S
Ampicillin >16 R
Ampicillin/Sulbactam >16/8 R
Cefazolin 16 R
Cefepime <=2 S
Ceftazidime <=1 S
Ceftriaxone <=1 S
Ertapenem <=0.5 S
Ciprofloxacin <=0.25 S
Gentamicin <=4 S
Levofloxacin <=0.5 S
Meropenem <=1 S
Piperacillin/Tazobactam <=16 S
Tobramycin <=4 S
Trimethoprim/Sulfamethoxazole >38 R
Imaging:
01/12/2024 CT abdomen/pelvis with contrast: There is a focal predominantly fluid collection in the left upper quadrant, which contains an anterior air-fluid level, compatible with an abscess. This has increased compared to examination of January 07,
2023. Of note, this collection is along the anterior margin of the spleen, without a well-defined plane between the collection and the spleen. There is also an irregular fluid collection within the left pelvis as described, and superimposed
infection of this collection cannot be excluded. There is a pigtail catheter in the left posterior pelvis, entering to the left gluteal region, with no evidence of a collection adjacent to this catheter. Subcutaneous edema, greater in both flanks.
Bilateral pleural effusions, left greater than right. Parenchymal opacity within both lower lobes, greater on the left compared to the right. This is most likely atelectasis, although underlying pneumonia difficult to completely exclude
radiographically.
01/03/2024 CT abdomen/pelvis: Markedly decreased posterior true pelvis abscess in comparison to prior pre-op chest drainage study with pigtail drainage catheter seen in the soft tissues of the left posterior true pelvis. Massively distended right
colon including cecum (cecum measuring up to 12 cm) with marked maximal colonic stool as well as gaseous distention of transverse and proximal descending colon, moderate stool with distention of the distal descending and sigmoid colon, limited in
evaluation without oral contrast opacification. Thickening Of the wall of the distal descending and proximal sigmoid colon which could represent colitis or diverticulitis. Partially obstructing distal colonic mass with inflammation cannot be
excluded. No free air. Please see full dictation for additional detail.
Care Review
Plan reviewed with: Physician (Gen Sx.)
--- NOTE | 2024-01-13 09:57 | PTCARENOTE ---
Pt is AAOx 3 4l o2, TPN via R PICC. very restless and slow speech with a generalized anasarca. L colostomy with L DAKOTA drain anterior and posterior . NSR at this time q 6 hr accu checks
--- NOTE | 2024-01-13 10:00 | PTCARENOTE ---
Pt has IR consult
--- NOTE | 2024-01-13 10:04 | W.PN.UPDATE ---
Update Note
Progress Note Update
spoke with dr chiu who reports depakote would interfere w antibiotic likely needed. it has not been clear to me how much depakote is truly doing for patient at this point would cut to 250 mg for a couple days then dc monitoring impact
--- NOTE | 2024-01-13 10:05 | W.PN.PUL.V3 ---
Today's Communication / Plan
-
Attempt to wean oxygen
Left upper quadrant collection drainage tentatively scheduled for today
Broad-spectrum antibiotics
Encouraged incentive spirometry and deep breathing
Monitor bilateral pleural effusions
Assessment
-
53-year-old female with past medical history of recurrent diverticulitis, pulmonary aspergillosis, hyperlipidemia, anxiety/depression, and GERD who presents with abdominal pain. She apparently was recently treated for diverticulitis in October 2023
with [address] at [facility] in [place] where she resides. She also reported that she was treated this month for ongoing fungal lung infection with Aspergillus and also given additional antibiotics but unknown what names of these
medications are. She developed a fever about 5 days ago and continues to be on Augmentin for last 3 days. She was visiting her mother in [place] prior to arrival when the pain in her left lower quadrant became severe so she came here to the
hospital for further care. She was afebrile in the ER to 98.6 �F, 79 pulse rate, breathing at 16 breaths/min, normotensive at 133/77 and saturating 100% on room air. Labs showed leukocytosis to 21.2, mild anemia to 11.5, mild hyponatremia to 134,
mild hyperkalemia to 5.6, and negative lipase of <10. CT A/P on admission showed severe sigmoid diverticulitis with large pericolonic abscess. She was given pain medications in the ER + Levaquin + IV fluids with NS x1L, and admitted to the
hospitalist service with general surgery consulted and antibiotics were started with Zosyn. She underwent IR CT-guided drainage on 12/24 with 170 cc of pale green purulent material seen - this later grew E. coli and group F Streptococcus. Patient
continues to be managed on the floor and was having issues with constipation. Repeat CT A/P performed on 01/02 showing decrease size in the abscess with pigtail drainage catheter seen in place, with massively distended right colon including the
cecum with stool distention and continued suspected distal descending colon/sigmoid diverticulitis. Given patient's worsening pain with distention and no flatus or BM in about 4 days, patient underwent exploratory laparotomy with splenic flexure
takedown, creation of end colostomy and omentectomy on 01/03/2024, and transferred to the ICU postoperatively. There was 150 cc of EBL and no immediate complications. Patient was stabilized and sent to the floor and pulmonary was reconsulted
01/12/2024 with ongoing hypoxemia.
#Sigmoid diverticulitis s/p exploratory laparotomy with splenic flexure takedown, end colostomy creation and omentectomy � POD #3
#Sigmoid diverticulitis c/b large pericolonic abscess s/p IR CT-guided drainage on 12/24 with purulent fluid growing E. coli + group F Streptococcus
#Constipation
#Leukocytosis
#Acute on chronic anemia (unknown baseline but she has been between 8.5�11.5g/dL since admission)
#Lower lobe pulmonary bronchiectasis � likely due to her history of chronic pulmonary aspergillosis diagnosed in fall 2022
#History of pulmonary aspergillosis on voriconazole
Plan:
Pulmonary status still somewhat tenuous in part due to patient's inability to take deep breaths, basilar atelectasis, effusion, etc.
Supplemental oxygen as needed-currently on 6 L
Aspiration precautions
Incentive spirometry
Acapella
Mucus clearing devices
DuoNebs
Singulair continues
Patient takes Breo as an outpatient
Follow radiographically-monitor bilateral pleural effusions
Cultures reviewed
Antibiotics continue-Zosyn day #20
Infectious disease following-correspondence reviewed
Left upper quadrant collection for IR drainage 01/13/2024
Surgery following-correspondence reviewed
CT abdomen 01/12/2024-fluid collection left upper quadrant contains anterior air-fluid level compatible with abscess increased compared to 01/08/2024, irregular fluid collection within left pelvis and superimposed infection of this collection cannot be
excluded, pigtail catheter in posterior pelvis no evidence of collection in this area, bilateral pleural effusions left greater than right most likely atelectasis
Nasogastric tube per surgery
Nephrology following-correspondence reviewed
Restless legs still an issue
Rotigotine patch transdermally increased
DVT prophylaxis-on Lovenox
GI prophylaxis-on Protonix
Nutrition per surgery
Eventual physical therapy/Occupational Therapy
Reviewed with nursing as well as respiratory therapy
Outpatient pulmonary follow-up
Subjective Data
-
Date of Service:
Date of Service: January 13, 2024
Chief Complaint: Pulmonary Follow Up and Dyspnea Follow Up
Subjective:
Very restless, not taking deep breaths, FiO2 requirements now 6 L, no chest pain or abdominal pain
Review of Systems
General: Other (Per HPI)
Objective Data
Data Reviewed
Vital Signs / I&O:
Vital Signs
Temp Pulse Resp BP Pulse Ox
99.4 F 87 20 163/123 94
01/13/24 07:30 01/13/24 07:54 01/13/24 07:54 01/13/24 04:02 01/13/24 07:54
Intake and Output
01/12/24 01/13/24 01/14/24
06:59 06:59 06:59
Intake Total 1129 / 1129 1399 / 1399 50 / 50
Output Total 555 / 555 1280 / 1280
Balance 574 / 574 119 / 119 50 / 50
SaO2: 94
Nasal Cannula flow liters per minute: 6
Physical Exam
General: Respiratory Distress (n) and Comfortable
HEENT: Normocephalic, Anicteric and Moist Mucous Membranes
Cardiovascular: Regular Rhythm
Respiratory: Wheeze (n), Crackles (Left basilar), Rhonchi (n), Non-Labored Respirations, Accessory Resp Muscle Use (n) and Stridor (n)
GI: Soft, Distended and Tender
Neurology: Awake, Alert and No Motor Deficits
Skin: Warm, Good Color, Cyanosis (n), Jaundice (n) and Rash
Labs/Micro/Reports
Lab Data
01/13/24 03:48
01/12/24 03:05
Microbiology
01/09/24 14:28 Nose Nasal Screen MRSA (PCR) - Final
MRSA not detected - performed by PCR methodology.
--- NOTE | 2024-01-13 10:47 | W.PN.GS2 ---
Today's Communication / Plan
-
IR drain today, adv diet post procedure
Assessment / Plan
-
Assessment: 53 yo female with recent aspergillus pneumonia on O2 and on steroids presenting with complicated diverticulitis with large pelvic abscess
S/p IR drainage 12/25/2023.
S/p exploratory laparotomy with takedown of splenic flexure, creation end colostomy with omentectomy POD#10
CT Abd/Pelvis (01/08/2024): Small amount of fluid within the inferior margin of the incision, scattered pockets of abdominal and pelvic ascites without definitive abscess, no large volume of free air, no evidence of contrast extravasation, diffuse
anasarca
Low grade temps, tachycardia resolved
Sepsis present on admission
Acute blood loss anemia requiring transfusion (3 total), DAKOTA/ostomy outputs non-bloody, Hb stable
Smoldering infection related to underlying disease and gross contamination as found operatively. High risk for rectal stump blowout given operative findings, control with drains.
CT A/P with rim enhancing fluid collection in gastrosplenic region, less well defined collection LLQ around the drain
Plan: IR drain for LUQ collection drain - planned for today
Stop TPN
Post procedure, DC NGT and start low res diet
Cont IVF pending adequate PO intake
Pain control: Tylenol, Toradol, IV Dilaudid PRN
Continue IV abx per ID recs
Psych recs appreciated, coordination with ID to allow broadening of abx coverage without contraindications
DVT: Lovenox
GI: IV PPI
SCD's as tolerated for VTE ppx
Subjective Data
-
Date of Service: January 13, 2024
Low grade temps, pain controlled, denies n/v, hungry
Objective Data
-
Intake and Output
01/12/24 01/13/24 01/14/24
06:59 06:59 06:59
Intake Total 1129 / 1129 1399 / 1399 50 / 50
Output Total 555 / 555 1280 / 1280
Balance 574 / 574 119 / 119 50 / 50
Intake:
Oral fluids 100 / 100
IV piggybacks 200 / 200 100 / 100 50 / 50
TPN/PPN 929 / 929 1194 / 1194
Amount instilled into Drain ( 5 / 5
Total)
Left Lower Sacrum Cole-Olmos
A Placed in IR
Output:
Liquid stool amount 50 / 50 50 / 50
Colostomy 50 / 50 50 / 50
Drain Output (Total)
Left Abdomen Cole-Olmos
Left Lower Sacrum Cole-Olmos 10
A Placed in IR
Urine, Voided 475 / 475 1200 / 1200
Other:
Number of approximated SMALL 1 3
amounts of urine
Vital Signs
Temp Pulse Resp BP Pulse Ox
99.4 F 87 20 163/123 94
01/13/24 07:30 01/13/24 07:54 01/13/24 07:54 01/13/24 04:02 01/13/24 10:05
Lab Results
01/13/24 03:48
01/12/24 03:05
Calcium 9.0 mg/dl (8.4-10.2) 01/12/24 03:05
Phosphorus 2.7 mg/dl (2.5-4.5) 01/12/24 03:05
Magnesium 2.2 mg/dl (1.6-2.3) 01/12/24 03:05
Total Bilirubin 0.4 mg/dl (0.2-1.3) 01/12/24 03:05
AST 22 U/L (14-36) 01/12/24 03:05
ALT 11 U/L (0-35) 01/12/24 03:05
Alkaline Phosphatase 84 U/L (38-126) 01/12/24 03:05
Total Protein 5.0 g/dl (6.3-8.2) L 01/12/24 03:05
Albumin 2.2 g/dl (3.5-5.0) L 01/12/24 03:05
Physical Exam
-
Gen: NAd
Abd: soft, approp ttp, incision cdi with central area of open skin, drainage is improved and looks clear ss today, no purulence here; sacral drain ss, LLQ drain joanne pus
--- NOTE | 2024-01-13 11:55 | PTCARENOTE ---
Pt sent to IR
--- NOTE | 2024-01-13 13:32 | W.PN.UPDATE ---
Update Note
Progress Note Update
Patient still with dyskinetic like movements, at this point I would not deem it not a restless legs type of disorder but seeming more likely a tardive dyskinesia with history of antipsychotic medication use, although TD classically produces
oral/lingual movements can still produce trunk and limb movements. Drug interactions with new medications tried here in hospital could have played a role as well as metabolic derangements. Not a great response to dopamine agonist Rotigotine.
I do feel would be best to pursue Ingrezza/Valbenazine which we would start at 40 mg daily. This would be preferable to benzodiazepines in the current context.
Keep the Rotigotine at same dose for now but will hold off further uptiration.
Discussed with psychiatry who will make efforts for Ingrezza.
Can consider Amantadine in the next couple of days.
[2024-01-13] MEDS: TYLENOL 1000 MG PO (13:54)
--- NOTE | 2024-01-13 14:06 | W.PN.UPDATE ---
Addendum entered and electronically signed by Octavia Glover MD 01/13/24 14:21:
called local pharmacy to see if her insurance would pay for ingrezza called in scrips for 40 mg for one week then 80 mg #30 they will get back to me with whether it is covered and the cost whereupon i will call her brother to see if it is feasible
for him to pick it up ....
Original Note:
Update Note
Progress Note Update
patient seen chart reviewed. discussed with nursing and with dr workman. the patient continues w leg movements. see dr workman's note. i called her out patient psychiatrist dr de leon at [facility] and left my cell phone number with his financial secretary.
the patient had just returned from IR where drain was placed and was in considerable pain. to a limited extent discussed medication issues including my discussion wdr ji re the possibility that what we are seeing is not restless legs but TD and
the ? of whether ingrezza would help which he felt was a maybe. i also discussed w her that i had spoken to ID this am re the need to consider whether depakote can be dc'ed so as to allow the use of a different antibiotic if need be given current
issues with abdominal infection. have ordered a very short taper of depakote. she is willing to try ingrezza but requested i talk to her out pt psychiatrist ....ingrezza is not formulary. have a call in to our pharmacy to see if we can get it.
also called a couple of places for samples but no success yet. another option would be to ask a family member, brother in this case , to see if he could get ingrezza filled at the pharmacy and bring it in.
--- NOTE | 2024-01-13 14:20 | PTCARENOTE ---
Pt returned from IR with 3rd DAKOTA drain draining red fluid. Pt very anxious and asked for pain med. Temp 100.4 tylenol given, Dr Davis aware
[2024-01-13 15:26] LABS: Glucose - Point of Care 151 mg/dl (70-99)
--- NOTE | 2024-01-13 16:39 | PTCARENOTE ---
Pt had 40 ml residual , NGT pulled as ordered. Clear liquid diet ordered
[2024-01-13 16:44] LABS: Glucose - Point of Care 134 mg/dl (70-99)
[2024-01-13] MEDS: LOVENOX 40 MG SC (17:02)
[2024-01-13] MEDS: FLEXERIL 5 MG PO (17:03)
[2024-01-13] MEDS: SINGULAIR 10 MG PO (17:05)
--- NOTE | 2024-01-13 17:59 | PTCARENOTE ---
Pt destating 84-89 on 10 liters. Temp 101 hr 95 rsp 30-40 bp 153/75. Cross coverage notified orders given
--- NOTE | 2024-01-13 18:30 | PTCARENOTE ---
Dueto Blateral limb restictions order recieved to draw BC from feet
--- NOTE | 2024-01-13 20:01 | PTCARENOTE ---
Received pt from [facility]. Pt is AAOx3, severe restless leg, forgetful @ times, anxious. NSR w/ PVCs on the monitor. Received pt on 10L, switched O2 tubing to midflow O2 sat 97%, lungs coarse/rhonchi/diminished, [place]/tachypneic. Left colostomy in
place. DAKOTA drains x3 (LLQ, LUQ and L sacrum/lower back area). SCDs in place. Pt c/o pain, PRN pain medication given (see MAR). Pt is laying in bed with call richard in reach.
[2024-01-13] MEDS: PULMICORT 0.5 MG INH (20:12)
[2024-01-13] MEDS: DEPAKOTE ER (24 HR RELEASE) 250 MG PO (21:28)
[2024-01-14] VITALS (11 sets, daily range): BP systolic 137–182; BP diastolic 72–154; PULSE 108–109; O2SAT 96–97; BMI 31.7
[2024-01-14 00:21] LABS: Glucose - Point of Care 120 mg/dl (70-99)
[2024-01-14] MEDS: ZOSYN 50 IV ×2 (02:07→08:56)
[2024-01-14] MEDS: DILAUDID 1 MG IV (03:21)
[2024-01-14 05:35] LABS: Glucose - Point of Care 114 mg/dl (70-99)
[2024-01-14] MEDS: DUONEB 3 ML INH ×3 (07:25→20:15)
[2024-01-14] MEDS: PULMICORT 0.5 MG INH ×2 (07:25→20:15)
--- NOTE | 2024-01-14 07:50 | W.PN.NEURO.1 ---
Today's Communication / Plan
-
-Stop Rotigotine as not seeing any benefit
-Start Amantadine 100 mg daily, will uptitrate to 100 mg BID shortly
-Give 1 mg IV Folate daily
-Trial 5 mg qhs melatonin
-Appreciate psychiatry making efforts for Ingreza which would start at 40 mg daily
Will follow
Neuro Assessment/Plan
Assessment
53 year old being cared for diverticulitis with abscess
On seroquel, depakote, fluoexetine, trazodone at home.
Has required blood transfusions here for anemia
Suspecting tardive dyskinesia, history of antipsychotic exposure and then metabolic derangements of acute illness, anemia possibly triggering the issue
No response to dopamine agonists, unlikely restless legs
Has been off Seroquel here
Subjective/Objective
Subjective Data
Date of Service: January 14, 2024
No acute events, denies hallucinations, still with dyskinetic movements
Objective Data
Vital Signs
Temp Pulse Resp BP Pulse Ox
99.3 F 80 19 160/72 96
01/14/24 03:06 01/14/24 06:00 01/14/24 06:00 01/14/24 06:00 01/14/24 06:00
Lab Results
01/13/24 03:48
01/12/24 03:05
PT 15.3 Sec (11.4-14.6) H 01/06/24 15:22
INR 1.21 01/06/24 15:22
APTT 35.6 Sec (23.4-35.0) H 01/06/24 15:22
Sodium 143 mmol/L (135-145) 01/12/24 03:05
Potassium 4.0 mmol/L (3.5-5.1) 01/12/24 03:05
BUN 21 mg/dl (7-17) H 01/12/24 03:05
Glucose 130 mg/dl (70-99) H 01/12/24 03:05
Calcium 9.0 mg/dl (8.4-10.2) 01/12/24 03:05
Phosphorus 2.7 mg/dl (2.5-4.5) 01/12/24 03:05
Vitamin B12 909 pg/ml (239-931) 01/09/24 04:57
Patient Allergies
No Known Allergies Allergy (Unverified 12/24/23 15:13)
Review of Systems
-
History Source: Patient
All other systems: Reviewed and negative
Constitutional: No Symptoms
EENT: No Symptoms Reported
Respiratory: No Symptoms
Cardiac: No Symptoms
Abdomen/GI: No Symptoms
Genitourinary: No Symptoms
Musculoskeletal: No Symptoms
Skin: No Symptoms
Neuro: See existing Neuro Note
Endocrine: No Symptoms
Hematologic / Lymphatic: No Symptoms
Allergy / Immunology: No Symptoms
Physical Exam
-
General: Appears Chronically Ill
Neck: No Bruits Bilaterally
Respiratory: Rales
GI: Soft and Tender
Extended Neurological Exam
Attention Span & Concentration: Awake, Alert, Interactive and No Difficulty with 2 Step Request
Memory: Able to Recall
Involuntary Movement: Other (Dyskinesias throughout limbs, involving mouth and neck to lesser degree)
Speech: Quality Unremarkable and Quantity Unremarkable; Negative Dysarthric
Cranial Nerve II: Left Eye: Pupillary Reactivity Unremarkable and Pupillary Size Unremarkable
Cranial Nerve II: Right Eye: Pupillary Reactivity Unremarkable and Pupillary Size Unremarkable
Cranial Nerves III, IV, : Extraocular Movement: Extraocular Movement Full in all Directions
Muscle Strength, Overall: Full Throughout
--- NOTE | 2024-01-14 08:20 | PTCARENOTE ---
Pt not taking deep breaths now on Highflow 69 liters 59% fio2
--- NOTE | 2024-01-14 08:45 | W.PN.GS2 ---
Today's Communication / Plan
-
`
Assessment / Plan
-
Assessment: 53 yo female with recent aspergillus pneumonia on O2 and on steroids presenting with complicated diverticulitis with large pelvic abscess
S/p IR drainage 12/25/2023.
S/p exploratory laparotomy with takedown of splenic flexure, creation end colostomy with omentectomy POD#11
s/p IR drain post op perisplenic fluid collection 01/14/24
Plan: low residue diet and encourage PO intake/supplements; okay for family to bring in food from home
Cont IVF pending adequate PO intake
Pain control: Tylenol, Toradol, IV Dilaudid PRN
Continue IV abx per ID recs
Psych recs appreciated, coordination with ID to allow broadening of abx coverage without contraindications
DVT: Lovenox
GI: IV PPI
SCD's as tolerated for VTE ppx
Subjective Data
-
Date of Service: January 14, 2024
pt seen and examined
doesn't offer much on questioning
pain controlled
poor appetite
not eating per nursing refusing clear liquids but took in apple sauce
Objective Data
-
Intake and Output
01/13/24 01/14/24 01/15/24
06:59 06:59 06:59
Intake Total 1399 / 1399 275 / 275
Output Total 1280 / 1280 698 / 698 200 / 200
Balance 119 / 119 -423 / -423 -200 / -200
Intake:
Oral fluids 100 / 100 50 / 50
IV piggybacks 100 / 100 200 / 200
TPN/PPN 1194 / 4
Amount instilled into Drain ( 25
Total)
Left Lower Sacrum Cole-Olmos
A Placed in IR
Left Upper Abdomen Placed in IR
Lower Back
Output:
Liquid stool amount 50 / 50 50 / 50
Colostomy 50 / 50 50 / 50
Drain Output (Total) 198 / 198
Left Abdomen Cole-Olmos
Left Lower Sacrum Cole-Olmos 5 5
A Placed in IR
Left Upper Abdomen Placed in IR 175 / 175
Lower Back
Urine, Voided 1200 / 1200 450 / 450 200 / 200
Other:
Number of approximated SMALL 3 1
amounts of urine
Number of approximated MODERATE 1
amounts of urine
Vital Signs
Temp Pulse Resp BP Pulse Ox
98.9 F 96 26 160/72 98
01/14/24 07:51 01/14/24 07:53 01/14/24 07:53 01/14/24 06:00 01/14/24 07:53
Lab Results
01/13/24 03:48
01/12/24 03:05
Calcium 9.0 mg/dl (8.4-10.2) 01/12/24 03:05
Phosphorus 2.7 mg/dl (2.5-4.5) 01/12/24 03:05
Magnesium 2.2 mg/dl (1.6-2.3) 01/12/24 03:05
Total Bilirubin 0.4 mg/dl (0.2-1.3) 01/12/24 03:05
AST 22 U/L (14-36) 01/12/24 03:05
ALT 11 U/L (0-35) 01/12/24 03:05
Alkaline Phosphatase 84 U/L (38-126) 01/12/24 03:05
Total Protein 5.0 g/dl (6.3-8.2) L 01/12/24 03:05
Albumin 2.2 g/dl (3.5-5.0) L 01/12/24 03:05
Physical Exam
-
NAD AAOx3
high flow nasal cannula
ABD: soft, ND, mild incisional tenderness
left sided ostomy functional with liquid stool and air
JPs with purulent fluid
[2024-01-14] MEDS: NEUPRO 2 MG TRANSDERM (08:56)
[2024-01-14] MEDS: VITAMIN D3 (cholecalciferol) 25 MCG PO (08:57)
[2024-01-14] MEDS: PROZAC 20 MG PO (09:09)
[2024-01-14] MEDS: VFEND 200 MG PO ×2 (09:09→21:20)
--- NOTE | 2024-01-14 09:31 | W.PN.PUL.V3 ---
Today's Communication / Plan
-
Change oxygen to high flow
Encourage incentive spirometry and deep breathing
Mucus clearing devices if needed
IR drainage, antibiotics, analgesia
Assessment
-
53-year-old female with past medical history of recurrent diverticulitis, pulmonary aspergillosis, hyperlipidemia, anxiety/depression, and GERD who presents with abdominal pain. She apparently was recently treated for diverticulitis in October 2023
with Augmentin at [facility] in [place] where she resides. She also reported that she was treated this month for ongoing fungal lung infection with Aspergillus and also given additional antibiotics but unknown what names of these
medications are. She developed a fever about 5 days ago and continues to be on Augmentin for last 3 days. She was visiting her mother in [place] prior to arrival when the pain in her left lower quadrant became severe so she came here to the
hospital for further care. She was afebrile in the ER to 98.6 �F, 79 pulse rate, breathing at 16 breaths/min, normotensive at 133/77 and saturating 100% on room air. Labs showed leukocytosis to 21.2, mild anemia to 11.5, mild hyponatremia to 134,
mild hyperkalemia to 5.6, and negative lipase of <10. CT A/P on admission showed severe sigmoid diverticulitis with large pericolonic abscess. She was given pain medications in the ER + Levaquin + IV fluids with NS x1L, and admitted to the
hospitalist service with general surgery consulted and antibiotics were started with Zosyn. She underwent IR CT-guided drainage on 12/24 with 170 cc of pale green purulent material seen - this later grew E. coli and group F Streptococcus. Patient
continues to be managed on the floor and was having issues with constipation. Repeat CT A/P performed on 01/02 showing decrease size in the abscess with pigtail drainage catheter seen in place, with massively distended right colon including the
cecum with stool distention and continued suspected distal descending colon/sigmoid diverticulitis. Given patient's worsening pain with distention and no flatus or BM in about 4 days, patient underwent exploratory laparotomy with splenic flexure
takedown, creation of end colostomy and omentectomy on 01/03/2024, and transferred to the ICU postoperatively. There was 150 cc of EBL and no immediate complications. Patient was stabilized and sent to the floor and pulmonary was reconsulted
01/12/2024 with ongoing hypoxemia.
#Sigmoid diverticulitis s/p exploratory laparotomy with splenic flexure takedown, end colostomy creation and omentectomy � POD #3
#Sigmoid diverticulitis c/b large pericolonic abscess s/p IR CT-guided drainage on 12/24 with purulent fluid growing E. coli + group F Streptococcus
#Constipation
#Leukocytosis
#Acute on chronic anemia (unknown baseline but she has been between 8.5�11.5g/dL since admission)
#Lower lobe pulmonary bronchiectasis � likely due to her history of chronic pulmonary aspergillosis diagnosed in fall 2022
#History of pulmonary aspergillosis on voriconazole
Plan:
Respiratory status remains tenuous in part due to patient's inability to take deep breaths, basilar atelectasis, effusion, etc.
Supplemental oxygen as needed-currently on 6 L-will change to high flow to add 'PEEP'-reviewed with PICK UP ATTENDANT
Aspiration precautions
Incentive spirometry
Acapella
Mucus clearing devices
DuoNebs
Singulair continues
Patient takes Breo as an outpatient
Follow radiographically-monitor bilateral pleural effusions
Cultures reviewed
Antibiotics continue-Zosyn day # 21-changed to meropenem by infectious disease
Infectious disease following-correspondence reviewed
Left upper quadrant collection-IR drainage 01/14/2024
Surgery following-correspondence reviewed
CT abdomen 01/12/2024-fluid collection left upper quadrant contains anterior air-fluid level compatible with abscess increased compared to 01/08/2024, irregular fluid collection within left pelvis and superimposed infection of this collection cannot be
excluded, pigtail catheter in posterior pelvis no evidence of collection in this area, bilateral pleural effusions left greater than right most likely atelectasis
Nasogastric tube per surgery
Nephrology following-correspondence reviewed
Restless legs still an issue
Rotigotine patch transdermally increased
DVT prophylaxis-on Lovenox
GI prophylaxis-on Protonix
Nutrition per surgery
Eventual physical therapy/Occupational Therapy
Reviewed with nursing as well as respiratory therapy
Outpatient pulmonary follow-up
Subjective Data
-
Date of Service:
Date of Service: January 14, 2024
Chief Complaint: Pulmonary Follow Up and Dyspnea Follow Up
Subjective:
Still with significant shortness of breath, abdominal pain persists, some restlessness and anxiety, no chest pain
Review of Systems
General: Other (Per HPI)
Objective Data
Data Reviewed
Vital Signs / I&O:
Vital Signs
Temp Pulse Resp BP Pulse Ox
98.9 F 96 26 160/72 98
01/14/24 07:51 01/14/24 07:53 01/14/24 07:53 01/14/24 06:00 01/14/24 07:53
Intake and Output
01/13/24 01/14/24 01/15/24
06:59 06:59 06:59
Intake Total 1399 / 1399 275 / 275
Output Total 1280 / 1280 698 / 698 200 / 200
Balance 119 / 119 -423 / -423 -200 / -200
SaO2: 98
Nasal Cannula flow liters per minute: 60
Physical Exam
General: Respiratory Distress (n) and Comfortable
HEENT: Normocephalic, Anicteric and Moist Mucous Membranes
Cardiovascular: Regular Rhythm
Respiratory: Wheeze (n), Crackles (Left basilar), Rhonchi (n), Non-Labored Respirations, Accessory Resp Muscle Use (n) and Stridor (n)
GI: Soft, Distended and Tender
Neurology: Awake, Alert and No Motor Deficits
Skin: Warm, Good Color, Cyanosis (n), Jaundice (n) and Rash
Labs/Micro/Reports
Lab Data
01/13/24 03:48
01/12/24 03:05
Microbiology
01/13/24 13:00 Abscess Gram Stain - Preliminary
--- NOTE | 2024-01-14 09:38 | W.PN.HOSP.TC ---
Today's Communication/Plan
-
IV antibiotics. High flow oxygen.
Assessment / Plan
Assessment / Plan
Gen: NAD, Awake and alert
Eyes: EOMI, PERRLA, no scleral icterus.
Neck: supple.
CV: RRR, +S1/S2, no m/r/g.
Resp: remains CTAB anteriorly, no rales, wheezes, or rhonchi.
Abd: remains +BS, soft, mild tenderness to palpation, ND.
Skin: No rashes.
Neuro: CN 2-12 intact, non-focal. Moving legs repetitively.
Psych: mostly calm
12/26/23 14:43 Blood/Venous Blood Culture - Final
No Growth - Final Report
12/26/23 12:59 Blood/Venous Blood Culture - Final
No Growth - Final Report
12/25/23 17:30 Abscess Wound Culture - Final
Escherichia coli
Escherichia coli#2
Streptococcus species
Group F Streptococcus
12/25/23 17:30 Abscess Gram Stain - Final
CT A/P 12/24/23:
1. Severe sigmoid diverticulitis with large complex pericolonic abscess in this region as described.
2. Probable chronic mild infectious/inflammatory bronchitis/bronchiolitis in the lung bases.
CT A/P 01/03/24: Markedly decreased posterior true pelvis abscess in comparison to prior pre-op chest drainage study with pigtail drainage catheter seen in the soft tissues of the left posterior true pelvis. Massively distended right colon including
cecum (cecum measuring up to 12 cm) with marked maximal colonic stool as well as gaseous distention of transverse and proximal descending colon, moderate stool with distention of the distal descending and sigmoid colon, limited in evaluation without
oral contrast opacification. Thickening Of the wall of the distal descending and proximal sigmoid colon which could represent colitis or diverticulitis. Partially obstructing distal colonic mass with inflammation cannot be excluded. No free air.
CT A/P 01/08/24:
1. Interval sigmoidectomy with creation of Sav pouch and diverting left lower quadrant colostomy. Midline laparotomy incision with small amount of fluid seen within the inferior margin of the incision.
2. Scattered pockets of abdominal and pelvic ascites with no definitive findings for fluid collection or abscess. Left transgluteal percutaneous drain remains in place with no significant abscess remaining within the left pelvis.
3. Small bilateral pleural effusions with adjacent atelectasis within the lower lobes.
4. Diffuse subcutaneous stranding/anasarca within both flanks and proximal thighs.
CT A/P 01/12/24:
There is a focal predominantly fluid collection in the left upper quadrant, which contains an anterior air-fluid level, compatible with an abscess. This has increased compared to examination of January 08, 2024. Of note, this collection is along the
anterior margin of the spleen, without a well-defined plane between the collection and the spleen.
There is also an irregular fluid collection within the left pelvis as described, and superimposed infection of this collection cannot be excluded.
There is a pigtail catheter in the left posterior pelvis, entering to the left gluteal region, with no evidence of a collection adjacent to this catheter.
Subcutaneous edema, greater in both flanks.
Bilateral pleural effusions, left greater than right. Parenchymal opacity within both lower lobes, greater on the left compared to the right. This is most likely atelectasis, although underlying pneumonia difficult to completely exclude
radiographically.
A/P:
Sigmoid diverticulitis with abscess:
-h/o diverticulosis/diverticulitis
-s/p abscess drainage 12/25/23 by IR. Enterococcus species and gram-negative bacilli on 01/12 wound cultures.
-with findings of massively distended right colon including the cecum on CT scan of the abdomen pelvis on January 03, 2024 the patient was taken to the OR for Exploratory laparotomy, takedown splenic flexure, creation end colostomy, omentectomy
-ID changing IV Zosyn to IV meropenem today on 01/13
-IV Dilaudid PRN (was on dilaudid SAMPLE GRINDER prior)
-repeated CT scan of the abdomen per surgery--> results as above and reviewed.
-Status post IR drain on 01/12.
-Follow-up repeat blood cultures for recurrent fevers yesterday 01/12
-Low residue diet per surgery today on 01/13
-Discussed with family over the phone today on 01/13
Acute hypoxic respiratory insufficiency:
Chest x-ray on 01/12 persistent moderate left pleural effusion-->Taken for possible thoracentesis on 01/10 but not enough fluid to be tapped.
Pulmonary following
She was placed on 10 L of oxygen yesterday and today increased to high flow oxygen by pulmonary recommendations.
Discussed with outpatient stone rubber 01/12 was able to call me back and relayed information of what has been transpiring.
Currently on IV meropenem
Checking sputum culture
Dyskinetic movements/Restless Legs:
-Psychiatry and neurology have decided to start her on Ingrezza.
-Also started on amantadine.
-Stopped Requip and Neupro patch
-Started melatonin
-Remains on trazodone 100 mg as needed, Flexeril as needed, Dilaudid as needed, and Depakote and psych discussed with outpatient psychiatrist who felt she did not have manic episode but patient decided to continue Depakote.
-Seroquel stopped as Vfend increases serum concentration of Seroquel.
-Avoid antidopaminergic agents as much as possible
Thrombosis left upper extremity:
Superficial thrombosis in the left basilic vein (no DVT)
On Lovenox 40 mg daily for prevention DVT and will be enough for above plus local care.
Acute blood loss anemia:
-Hemoglobin 8.3 yesterday, will recheck
-s/p 3U pRBCs
Other problems:
h/o pulmonary Aspergillus: since Apr 2023. cont Vfend.
Hyperkalemia, resolved
HLD
GERD: cont PPI
Anxiety/depression: Continue Trazodone PRN/Prozac/Depakote. Seroquel stopped by psych.
FULL/Lovenox
Total time spent on today's encounter was 52 minutes which included time spent in counseling the patient/family regarding diagnosis and treatment plan as listed above, goals of care, and symptom management. Case was discussed with nursing staff,
specialists, and care coordinators/case management. All labs and imaging personally reviewed by me. Remainder the time spent in detailed review of previous records, lab data, imaging, and other medical provider documentation.
Anticipated Discharge: > 48 hours
Subjective/Interval History
-
Date of Service: January 14, 2024
Patient had fevers yesterday. Afebrile today. She was placed on 10 L of oxygen yesterday and today increased to high flow oxygen. She remains alert but remains with incoordinated movement of her legs and her trunk. She does have some abdominal
discomfort but not worsening abdominal pain nausea or vomiting.
Objective Data
-
Vital Signs:
Vital Signs
Temp Pulse Resp BP Pulse Ox
98.9 F 96 26 160/72 98
01/14/24 07:51 01/14/24 07:53 01/14/24 07:53 01/14/24 06:00 01/14/24 09:31
I&O
01/13/24 01/14/24 01/15/24
06:59 06:59 06:59
Intake Total 1399 / 1399 275 / 275
Output Total 1280 / 1280 698 / 698 200 / 200
Balance 119 / 119 -423 / -423 -200 / -200
--- NOTE | 2024-01-14 10:27 | W.PN.ID1 ---
Date of Service
Date of Service: January 14, 2024
Today's Communication
Continue antibiotics; transition Zosyn to meropenem pending further culture data.
Assessment / Plan
Diverticulitis
Diverticular abscess status post IR drainage
S/p exploratory lap, colostomy (01/03/2024)
Leukocytosis
LUQ collection
Hx Pulmonary aspergillosis; on prior Vfend as outpatient
Anxiety/depression
Hx steroid-induced psychosis
GERD
Recommendations:
Very slow improvement despite adequate antibiotic coverage.
Current issue may be left upper quadrant collection; s/p IR drainage 01/13/2024. Cultures pending.
Transition to meropenem empirically.
Attempt sputum culture.
Follow CXR
Continue to monitor white count and temperature curve.
Continue with voriconazole.
����������������������������������������������������������
Chief Complaint
-: Leukocytosis, Pneumonia and Other (Diverticulitis; diverticular abscess)
Subjective / Review of Systems
Patient seen and examined. Reports ongoing cough, which she admits is productive to some degree. Now on high flow O2.
Review of Systems: Fever
Vital Signs / Physical Exam
Vital Signs
Vital Signs
Temp Pulse Resp BP Pulse Ox
98.9 F 96 26 160/72 98
01/14/24 07:51 01/14/24 07:53 01/14/24 07:53 01/14/24 06:00 01/14/24 09:31
Physical Exam
Constitutional: Comfortable, Chronically Ill and Non-toxic
Head: Normocephalic
Eyes: No Conjunctival Hemorrhage and Sclera Anicteric
Cardiovascular: S1/S2; Negative S3/S4
Pulmonary: Rhonchi (few, scattered), Coarse and Non Labored; Negative Wheezes
Gastrointestinal: Soft, Tender (lower abdomen), Distended (mild), Decreased Bowel Sounds, No Rebound and Other (colostomy)
Skin: Warm and Dry; Negative Rash or Jaundice
Psychological: Calm
Objective Data
Lab Data
Lab Results
01/13/24 03:48
01/12/24 03:05
PT 15.3 Sec (11.4-14.6) H 01/06/24 15:22
INR 1.21 01/06/24 15:22
APTT 35.6 Sec (23.4-35.0) H 01/06/24 15:22
Estimated Creat Clear > 125 ml/min 01/12/24 03:05
Lactic Acid Cancelled 01/04/24 09:00
Total Bilirubin 0.4 mg/dl (0.2-1.3) 01/12/24 03:05
AST 22 U/L (14-36) 01/12/24 03:05
ALT 11 U/L (0-35) 01/12/24 03:05
Alkaline Phosphatase 84 U/L (38-126) 01/12/24 03:05
Most recent labs reviewed.
Micro Results:
01/13/24 13:00 Wound Culture - Pending
Abscess Gram Stain - Preliminary
01/13/24 18:56 Blood Culture - Pending
Blood/Venous
01/13/24 20:22 Blood Culture - Pending
Blood/Venous
01/09/24 14:28 Nasal Screen MRSA (PCR) - Final
Nose MRSA not detected - performed by PCR methodology.
12/26/23 14:43 Blood Culture - Final
Blood/Venous No Growth - Final Report
12/26/23 12:59 Blood Culture - Final
Blood/Venous No Growth - Final Report
12/25/23 17:30 Wound Culture - Final
Abscess Escherichia coli
Escherichia coli#2
Streptococcus species
Group F Streptococcus
Gram Stain - Final
Wound/abscess/other Cult Final 12/28/23-0821
Many 1st strain Escherichia coli
Few 2nd strain Escherichia coli
Many Streptococcus species of two morphotypes
Moderate Group F Streptococcus*
1. Escherichia coli
M.I.C. RX
--------- ---
Amoxicillin/Potas. Clavulanate 16/8 I
Ampicillin >16 R
Ampicillin/Sulbactam >16/8 R
Cefazolin >16 R
Cefepime <=2 S
Ceftazidime <=1 S
Ceftriaxone <=1 S
Ertapenem <=0.5 S
Ciprofloxacin <=0.25 S
Gentamicin >8 R
Levofloxacin <=0.5 S
Meropenem <=1 S
Piperacillin/Tazobactam <=16 S
Tobramycin 8 I
Trimethoprim/Sulfamethoxazole >2/38 R
2. Escherichia coli#2
M.I.C. RX
--------- ---
Amoxicillin/Potas. Clavulanate <=8/4 S
Ampicillin >16 R
Ampicillin/Sulbactam >16/8 R
Cefazolin 16 R
Cefepime <=2 S
Ceftazidime <=1 S
Ceftriaxone <=1 S
Ertapenem <=0.5 S
Ciprofloxacin <=0.25 S
Gentamicin <=4 S
Levofloxacin <=0.5 S
Meropenem <=1 S
Piperacillin/Tazobactam <=16 S
Tobramycin <=4 S
Trimethoprim/Sulfamethoxazole >2/38 R
Imaging:
01/12/2024 CT abdomen/pelvis with contrast: There is a focal predominantly fluid collection in the left upper quadrant, which contains an anterior air-fluid level, compatible with an abscess. This has increased compared to examination of January 07,
2023. Of note, this collection is along the anterior margin of the spleen, without a well-defined plane between the collection and the spleen. There is also an irregular fluid collection within the left pelvis as described, and superimposed
infection of this collection cannot be excluded. There is a pigtail catheter in the left posterior pelvis, entering to the left gluteal region, with no evidence of a collection adjacent to this catheter. Subcutaneous edema, greater in both flanks.
Bilateral pleural effusions, left greater than right. Parenchymal opacity within both lower lobes, greater on the left compared to the right. This is most likely atelectasis, although underlying pneumonia difficult to completely exclude
radiographically.
01/03/2024 CT abdomen/pelvis: Markedly decreased posterior true pelvis abscess in comparison to prior pre-op chest drainage study with pigtail drainage catheter seen in the soft tissues of the left posterior true pelvis. Massively distended right
colon including cecum (cecum measuring up to 12 cm) with marked maximal colonic stool as well as gaseous distention of transverse and proximal descending colon, moderate stool with distention of the distal descending and sigmoid colon, limited in
evaluation without oral contrast opacification. Thickening Of the wall of the distal descending and proximal sigmoid colon which could represent colitis or diverticulitis. Partially obstructing distal colonic mass with inflammation cannot be
excluded. No free air. Please see full dictation for additional detail.
--- NOTE | 2024-01-14 10:51 | PTCARENOTE ---
Pt breakd=fast here pt feeding herself
[2024-01-14] MEDS: SYMMETREL 100 MG PO (11:01)
[2024-01-14] MEDS: PROTONIX IV 40 MG IV (11:02)
[2024-01-14] MEDS: FOLVITE 50.2000000000000028 MG IV (11:02)
[2024-01-14] MEDS: NSS (PRESERVATIVE FREE) 10 ML IV (11:02)
--- NOTE | 2024-01-14 11:25 | WOUNDNOTE ---
WON RN NOTE: Patient still not candidate for extensive teaching, appliance intact. Called [facility] for ostomy supplies, will follow up either later today or tomorrow for pouch change. Nurse Ronald made aware and to place supplies in rm when arrives.
Called Sister in law Kathy to set up a time for teaching session next appliance change. Unable to come next few days, will be available next Thursday. Teaching session scheduled for 01/18 at 3pm, gave Kathy this life underwriter's office number if anything
changes and I will do the same.
--- NOTE | 2024-01-14 12:01 | W.PN.UPDATE ---
Update Note
Progress Note Update
patient seen chart reviewed. spoke with nursing and pt. i spoke with patient's out pt psychiatrist dr urbina last evening and reported our discussion to the patient. . he told me his only awareness of psychosis was when she was on steroids when he
first started seeing her about a year plus ago. he has never known her to be agitated and aggressive. he did note a movement disorder but not clear etiology but it was not he who rx her w олег. he did not feel she really needed depakote but she
wanted to continue it. he has never seen her in a manic state and is not clear she is truly bipolar. she was up in a chair today w the help of pt. shared with her that i have located ingrezza which neuro agrees might be helpful and will be securing
a supply this afternoon which we can begin with hopefully later today 40 mg for seven days then 80 mg. the movements do continue at this point.
[2024-01-14] MEDS: MERREM 500 MG IV ×2 (12:20→17:19)
[2024-01-14] MEDS: STERILE WATER FOR INJECTION 10 ML IV ×2 (12:21→17:19)
--- NOTE | 2024-01-14 13:50 | WOUNDNOTE ---
ELISE RN NOTE ADDENDUM: With assist of staff patient ambulated to commode then back to bed for appliance change. Stoma is red budded with mucocutaneous separation starting at 9 O'clock, peristomal skin intact. Dr. Ernst made aware. Sacrum is intact,
drains in place. Will follow next week for further teaching and appliance change along with sister in law.
--- NOTE | 2024-01-14 15:10 | PTCARENOTE ---
Pt sat OOB in chair for 2 hrs ate some lunch . Pt still becomes very anxious at times
[2024-01-14] MEDS: NON-FORMULARY ITEM 1 UNIT PO (16:19)
[2024-01-14] MEDS: ZOFRAN 4 MG IV (17:19)
[2024-01-14] MEDS: LOVENOX 40 MG SC (17:19)
[2024-01-14] MEDS: SINGULAIR 10 MG PO (17:20)
--- NOTE | 2024-01-14 17:41 | CM ---
Patient with Dx Sigmoid diverticulitis with abscess, s/p Exploratory laparotomy, creation end colostomy, post op perisplenic fluid collection. High flow O2. Receiving IV Abx. [place]AK[place] drains. Seen by Psych. PT/OT; requires assist of 2, rec skilled
rehab.
SNF referrals reviewed; accepted by [facility], [facility], [facility].
Plan follow up with patient & her primary contact Kathy antony; accepting SNF choices.
--- NOTE | 2024-01-14 20:57 | PTCARENOTE ---
Received pt from [facility]. Pt is AAOx3. NSR/ sinus tach on the monitor. On highflow 60L @ 50% O2 sat 96%, lungs coarse/rhonchi/diminished. JPs x3. Left colostomy in place. VSS. Pt is laying comfortable in bed with call richard in reach.
[2024-01-14] MEDS: DEPAKOTE ER (24 HR RELEASE) 250 MG PO (21:20)
[2024-01-14] MEDS: MELATONIN 5 MG PO (21:20)
[2024-01-15] VITALS (14 sets, daily range): BP systolic 119–197; BP diastolic 61–139; BMI 31.8
[2024-01-15] MEDS: MERREM 500 MG IV ×5 (00:27→23:20)
[2024-01-15] MEDS: STERILE WATER FOR INJECTION 10 ML IV ×5 (00:27→23:20)
[2024-01-15] MEDS: DESYREL 100 MG PO ×2 (00:33→23:20)
[2024-01-15 03:37] LABS: % Basophils 0.2 % (0-2); % Immature Granulocytes 2.3 % (0-0.5); % Lymphocytes 3.7 % (20.5-51.1); % Monocytes 6.4 % (1.7-9.3); % Neutrophils 87.4 % (42.2-75.2); Absolute Basophils 0.1 10^3/uL (0-0.2); Absolute Immature Granulocytes 0.7 10^3/uL (0-0.05); Absolute Lymphocytes 1.1 10^3/uL (1.2-3.4); Absolute Monocytes 1.9 10^3/uL (0.1-0.6); Absolute Neutrophils 26.4 10^3/uL (1.4-6.5); Hematocrit 26.2 % (37.0-47.0); Hemoglobin 8.4 g/dL (12.0-16.0); Mean Corp Hgb Conc. 32.1 g/dL (33.0-37.0); Mean Corpuscular Hgb 29.4 pg (27.0-31.0); Mean Corpuscular Volume 91.6 fL (81.0-99.0); Mean Platelet Volume 8.9 fL (7.4-10.4); Nucleated Red Blood Cells % 0.1 %; Platelet Count 303 10^3/uL (130-400); Red Blood Cell Count 2.86 10^6/uL (4.20-5.40); White Blood Cell Count 30.2 10^3/uL (4.8-10.8)
[2024-01-15 04:03] LABS: ALT (SGPT) 13 U/L (0-35); AST (SGOT) 36 U/L (14-36); Albumin 2.2 g/dl (3.5-5.0); Alkaline Phosphatase 106 U/L (38-126); Blood Urea Nitrogen 21 mg/dl (7-17); Calcium 8.3 mg/dl (8.4-10.2); Carbon Dioxide 37 mmol/L (22-30); Chloride 96 mmol/L (98-107); Estimated Creatinine Clearance > 125 ml/min; Glucose 95 mg/dl (70-99); Potassium 3.6 mmol/L (3.5-5.1); Sodium 138 mmol/L (135-145); Total Bilirubin 0.5 mg/dl (0.2-1.3); Total Protein 4.9 g/dl (6.3-8.2); eGFR > 60.00
--- NOTE | 2024-01-15 07:35 | W.PN.NEURO.1 ---
Today's Communication / Plan
-
-Starting Ingrezza at 40 mg, give for 7 days and then increase to 80 mg daily
-Increase Amantadine to 100 mg BID
-Remain off antipsychotics
-Supportive care
Neuro Assessment/Plan
Assessment
53 year old being cared for diverticulitis with abscess
On seroquel, depakote, fluoexetine, trazodone at home.
Has required blood transfusions here for anemia
Suspecting tardive dyskinesia, history of antipsychotic exposure and then metabolic derangements of acute illness, anemia possibly triggering the issue
No response to dopamine agonists, unlikely restless legs
Has been off Seroquel here
Subjective/Objective
Subjective Data
Date of Service: January 15, 2024
No acute events, Ingrezza able to be obtained, patient feels like movements maybe a little better, they make muscles sore and can produce difficultly with breathing, no hallucinations
Objective Data
Vital Signs
Temp Pulse Resp BP Pulse Ox
98.3 F 75 20 182/139 98
01/15/24 02:59 01/15/24 06:08 01/15/24 06:08 01/15/24 06:08 01/15/24 04:12
Lab Results
01/15/24 03:28
01/15/24 03:28
PT 15.3 Sec (11.4-14.6) H 01/06/24 15:22
INR 1.21 01/06/24 15:22
APTT 35.6 Sec (23.4-35.0) H 01/06/24 15:22
Sodium 138 mmol/L (135-145) 01/15/24 03:28
Potassium 3.6 mmol/L (3.5-5.1) 01/15/24 03:28
BUN 21 mg/dl (7-17) H 01/15/24 03:28
Glucose 95 mg/dl (70-99) 06/07/24 03:28
Calcium 8.3 mg/dl (8.4-10.2) L 01/15/24 03:28
Phosphorus 2.7 mg/dl (2.5-4.5) 01/12/24 03:05
Vitamin B12 909 pg/ml (239-931) 01/09/24 04:57
Patient Allergies
No Known Allergies Allergy (Unverified 12/24/23 15:13)
Review of Systems
-
History Source: Patient
All other systems: Reviewed and negative
Constitutional: No Symptoms
EENT: No Symptoms Reported
Respiratory: No Symptoms
Cardiac: No Symptoms
Abdomen/GI: Abdominal Pain; Negative Nausea or Vomiting
Genitourinary: No Symptoms
Musculoskeletal: No Symptoms
Skin: No Symptoms
Neuro: No Symptoms and See existing Neuro Note
Endocrine: No Symptoms
Hematologic / Lymphatic: No Symptoms
Allergy / Immunology: No Symptoms
Physical Exam
-
General: Comfortable
Eyes: No Ptosis
HEENT: Normocephalic
Neck: No Bruits Bilaterally
Respiratory: Clear to Auscultation
Cardiac: Regular Rhythm
GI: Normal Bowel Sounds
Skin: Unremarkable
Extremities: No Clubbing
Psych: Unremarkable and Intact Judgement/Insight
Extended Neurological Exam
Attention Span & Concentration: Awake, Alert and Interactive
Memory: Unremarkable
Tremor: Hand Tremor Absent
Involuntary Movement: Other (Dyskinesias of trunk, upper and lower limbs)
Speech: Negative Expressive Aphasia, Receptive Aphasia or Dysarthric
Cranial Nerve II: Left Eye: Pupillary Reactivity Unremarkable and Pupillary Size Unremarkable
Cranial Nerve II: Right Eye: Pupillary Reactivity Unremarkable and Pupillary Size Unremarkable
Muscle Strength, Overall: Other (5/5 arm flexion and 4/5 hip flexion bilaterally, no motor asymmetry)
Muscle Bulk & Tone: Bulk Unremarkable and Tone Unremarkable
Touch Sensation: Unremarkable
[2024-01-15] MEDS: PULMICORT 0.5 MG INH ×2 (07:37→19:31)
[2024-01-15] MEDS: DUONEB 3 ML INH ×3 (07:37→19:31)
--- NOTE | 2024-01-15 08:27 | W.PN.ID1 ---
Date of Service
Date of Service: January 15, 2024
Today's Communication
Continue meropenem (day #2)
Assessment / Plan
Diverticulitis
Diverticular abscess status post IR drainage
S/p exploratory lap, colostomy (01/03/2024)
Leukocytosis
LUQ collection
Hx Pulmonary aspergillosis; on prior Vfend as outpatient
Anxiety/depression
Hx steroid-induced psychosis
GERD
Recommendations:
Very slow improvement despite adequate antibiotic coverage.
Current issue may be left upper quadrant collection; s/p IR drainage 01/13/2024. Cultures pending.
Patient transitioned to meropenem yesterday.
Sputum produced. To be sent for culture.
Follow CXR
Continue to monitor white count and temperature curve. Etiology of marked increase in today's white count not clear.
Continue with voriconazole.
����������������������������������������������������������
Chief Complaint
-: Leukocytosis, Pneumonia and Other (Diverticulitis; diverticular abscess)
Subjective / Review of Systems
Patient seen and examined. Reports overall feeling about the same to slightly better than yesterday. At this time remains on high flow O2. Has produced some sputum which will be sent for culture. Notes only minimal abdominal discomfort, and no
change from prior days.
Review of Systems: No Fever and No Chills
Vital Signs / Physical Exam
Vital Signs
Vital Signs
Temp Pulse Resp BP Pulse Ox
98.3 F 100 26 182/139 96
01/15/24 02:59 01/15/24 07:38 01/15/24 07:38 01/15/24 06:08 01/15/24 07:45
Physical Exam
Constitutional: Comfortable, Chronically Ill and Non-toxic
Head: Normocephalic
Eyes: No Conjunctival Hemorrhage and Sclera Anicteric
Cardiovascular: S1/S2; Negative S3/S4
Pulmonary: Rhonchi (few, scattered), Coarse and Non Labored; Negative Wheezes
Gastrointestinal: Soft, Tender (lower abdomen; mild), Distended (mild), Decreased Bowel Sounds, No Rebound and Other (colostomy)
Extremities: Negative Edema or Cyanosis
Skin: Warm and Dry; Negative Rash or Jaundice
Neurological: Awake and Alert
Psychological: Calm
Objective Data
Lab Data
Lab Results
01/15/24 03:28
01/15/24 03:28
PT 15.3 Sec (11.4-14.6) H 01/06/24 15:22
INR 1.21 01/06/24 15:22
APTT 35.6 Sec (23.4-35.0) H 01/06/24 15:22
Estimated Creat Clear > 125 ml/min 01/15/24 03:28
Lactic Acid Cancelled 01/04/24 09:00
Total Bilirubin 0.5 mg/dl (0.2-1.3) 01/15/24 03:28
AST 36 U/L (14-36) 01/15/24 03:28
ALT 13 U/L (0-35) 01/15/24 03:28
Alkaline Phosphatase 106 U/L (38-126) 01/15/24 03:28
Most recent labs reviewed.
Micro Results:
01/13/24 13:00 Wound Culture - Preliminary
Abscess Enterococcus species
Gram negative bacilli
Gram Stain - Preliminary
01/13/24 20:22 Blood Culture - Preliminary
Blood/Venous No Growth in 24 hours- Final report to follow
01/13/24 18:56 Blood Culture - Preliminary
Blood/Venous No Growth in 24 hours- Final report to follow
01/09/24 14:28 Nasal Screen MRSA (PCR) - Final
Nose MRSA not detected - performed by PCR methodology.
12/26/23 14:43 Blood Culture - Final
Blood/Venous No Growth - Final Report
12/26/23 12:59 Blood Culture - Final
Blood/Venous No Growth - Final Report
12/25/23 17:30 Wound Culture - Final
Abscess Escherichia coli
Escherichia coli#2
Streptococcus species
Group F Streptococcus
Gram Stain - Final
Wound/abscess/other Cult Final 12/28/23-0821
Many 1st strain Escherichia coli
Few 2nd strain Escherichia coli
Many Streptococcus species of two morphotypes
Moderate Group F Streptococcus*
1. Escherichia coli
M.I.C. RX
--------- ---
Amoxicillin/Potas. Clavulanate 16/8 I
Ampicillin >16 R
Ampicillin/Sulbactam >16/8 R
Cefazolin >16 R
Cefepime <=2 S
Ceftazidime <=1 S
Ceftriaxone <=1 S
Ertapenem <=0.5 S
Ciprofloxacin <=0.25 S
Gentamicin >8 R
Levofloxacin <=0.5 S
Meropenem <=1 S
Piperacillin/Tazobactam <=16 S
Tobramycin 8 I
Trimethoprim/Sulfamethoxazole >2/38 R
2. Escherichia coli#2
M.I.C. RX
--------- ---
Amoxicillin/Potas. Clavulanate <=8/4 S
Ampicillin >16 R
Ampicillin/Sulbactam >16/8 R
Cefazolin 16 R
Cefepime <=2 S
Ceftazidime <=1 S
Ceftriaxone <=1 S
Ertapenem <=0.5 S
Ciprofloxacin <=0.25 S
Gentamicin <=4 S
Levofloxacin <=0.5 S
Meropenem <=1 S
Piperacillin/Tazobactam <=16 S
Tobramycin <=4 S
Trimethoprim/Sulfamethoxazole > R
Imaging:
01/12/2024 CT abdomen/pelvis with contrast: There is a focal predominantly fluid collection in the left upper quadrant, which contains an anterior air-fluid level, compatible with an abscess. This has increased compared to examination of January 07,
2023. Of note, this collection is along the anterior margin of the spleen, without a well-defined plane between the collection and the spleen. There is also an irregular fluid collection within the left pelvis as described, and superimposed
infection of this collection cannot be excluded. There is a pigtail catheter in the left posterior pelvis, entering to the left gluteal region, with no evidence of a collection adjacent to this catheter. Subcutaneous edema, greater in both flanks.
Bilateral pleural effusions, left greater than right. Parenchymal opacity within both lower lobes, greater on the left compared to the right. This is most likely atelectasis, although underlying pneumonia difficult to completely exclude
radiographically.
01/03/2024 CT abdomen/pelvis: Markedly decreased posterior true pelvis abscess in comparison to prior pre-op chest drainage study with pigtail drainage catheter seen in the soft tissues of the left posterior true pelvis. Massively distended right
colon including cecum (cecum measuring up to 12 cm) with marked maximal colonic stool as well as gaseous distention of transverse and proximal descending colon, moderate stool with distention of the distal descending and sigmoid colon, limited in
evaluation without oral contrast opacification. Thickening Of the wall of the distal descending and proximal sigmoid colon which could represent colitis or diverticulitis. Partially obstructing distal colonic mass with inflammation cannot be
excluded. No free air. Please see full dictation for additional detail.
--- NOTE | 2024-01-15 08:43 | W.PN.HOSP.TC ---
Today's Communication/Plan
-
IV antibiotics. Trend WBC. Oxygen.
Assessment / Plan
Assessment / Plan
Gen: NAD, Awake and alert
Eyes: EOMI, PERRLA, no scleral icterus.
Neck: supple.
CV: RRR, +S1/S2, no m/r/g.
Resp: remains CTAB anteriorly, no rales, wheezes, or rhonchi.
Abd: remains +BS, soft, mild tenderness to palpation, ND.
Skin: No rashes.
Neuro: CN 2-12 intact, non-focal. Moving legs repetitively.
Psych: mostly calm
12/26/23 14:43 Blood/Venous Blood Culture - Final
No Growth - Final Report
12/26/23 12:59 Blood/Venous Blood Culture - Final
No Growth - Final Report
12/25/23 17:30 Abscess Wound Culture - Final
Escherichia coli
Escherichia coli#2
Streptococcus species
Group F Streptococcus
12/25/23 17:30 Abscess Gram Stain - Final
CT A/P 12/24/23:
1. Severe sigmoid diverticulitis with large complex pericolonic abscess in this region as described.
2. Probable chronic mild infectious/inflammatory bronchitis/bronchiolitis in the lung bases.
CT A/P 01/03/24: Markedly decreased posterior true pelvis abscess in comparison to prior pre-op chest drainage study with pigtail drainage catheter seen in the soft tissues of the left posterior true pelvis. Massively distended right colon including
cecum (cecum measuring up to 12 cm) with marked maximal colonic stool as well as gaseous distention of transverse and proximal descending colon, moderate stool with distention of the distal descending and sigmoid colon, limited in evaluation without
oral contrast opacification. Thickening Of the wall of the distal descending and proximal sigmoid colon which could represent colitis or diverticulitis. Partially obstructing distal colonic mass with inflammation cannot be excluded. No free air.
CT A/P 01/08/24:
1. Interval sigmoidectomy with creation of Sav pouch and diverting left lower quadrant colostomy. Midline laparotomy incision with small amount of fluid seen within the inferior margin of the incision.
2. Scattered pockets of abdominal and pelvic ascites with no definitive findings for fluid collection or abscess. Left transgluteal percutaneous drain remains in place with no significant abscess remaining within the left pelvis.
3. Small bilateral pleural effusions with adjacent atelectasis within the lower lobes.
4. Diffuse subcutaneous stranding/anasarca within both flanks and proximal thighs.
CT A/P 01/12/24:
There is a focal predominantly fluid collection in the left upper quadrant, which contains an anterior air-fluid level, compatible with an abscess. This has increased compared to examination of January 08, 2024. Of note, this collection is along the
anterior margin of the spleen, without a well-defined plane between the collection and the spleen.
There is also an irregular fluid collection within the left pelvis as described, and superimposed infection of this collection cannot be excluded.
There is a pigtail catheter in the left posterior pelvis, entering to the left gluteal region, with no evidence of a collection adjacent to this catheter.
Subcutaneous edema, greater in both flanks.
Bilateral pleural effusions, left greater than right. Parenchymal opacity within both lower lobes, greater on the left compared to the right. This is most likely atelectasis, although underlying pneumonia difficult to completely exclude
radiographically.
A/P:
Sigmoid diverticulitis with abscess:
-h/o diverticulosis/diverticulitis
-s/p abscess drainage 12/25/23 by IR. Enterococcus species and gram-negative bacilli on 01/12 wound cultures.
-with findings of massively distended right colon including the cecum on CT scan of the abdomen pelvis on January 03, 2024 the patient was taken to the OR for Exploratory laparotomy, takedown splenic flexure, creation end colostomy, omentectomy
-ID changing IV Zosyn to IV meropenem today on 01/13
-IV Dilaudid PRN (was on dilaudid DISABILITY RATER prior)
-repeated CT scan of the abdomen per surgery--> results as above and reviewed.
-Status post IR drain on 01/12.
-Follow-up repeat blood cultures for recurrent fevers since 01/12 but so far no growth
-Low residue diet per surgery
-Discussed with family over the phone on 01/13
Leukocytosis:
Continue to trend
Unclear if related to abdominal process. Might need to repeat CT of the abdomen.
Discussed with IR again about possibility of thoracentesis but reiterated that pleural fluid is too small.
Continue antibiotics per ID.
Acute hypoxic respiratory insufficiency:
Continue high flow oxygen for increased PEEP.
Chest x-ray on 01/12 persistent moderate left pleural effusion-->Taken for possible thoracentesis on 01/10 but not enough fluid to be tapped.
Pulmonary following
She was placed on 10 L of oxygen and increased to high flow oxygen by pulmonary recommendations.
Discussed with outpatient inventory representative 01/12 was able to call me back and relayed information of what has been transpiring.
Currently on IV meropenem
Checking sputum culture
Dyskinetic movements/Restless Legs:
-Psychiatry and neurology have decided to start her on Ingrezza. Seems to be slowly working.
-Also started on amantadine.
-Stopped Requip and Neupro patch
-Started melatonin
-Remains on trazodone 100 mg as needed, Flexeril as needed, Dilaudid as needed, and Depakote and psych discussed with outpatient psychiatrist who felt she did not have manic episode but patient decided to continue Depakote.
-Seroquel stopped as Vfend increases serum concentration of Seroquel.
-Avoid antidopaminergic agents as much as possible
Thrombosis left upper extremity:
Superficial thrombosis in the left basilic vein (no DVT)
On Lovenox 40 mg daily for prevention DVT and will be enough for above plus local care.
Acute blood loss anemia:
-Hemoglobin 8.3 yesterday, will recheck
-s/p 3U pRBCs
Other problems:
h/o pulmonary Aspergillus: since Apr 2023. cont Vfend.
Hyperkalemia, resolved
HLD
GERD: cont PPI
Anxiety/depression: Continue Trazodone PRN/Prozac/Depakote. Seroquel stopped by psych.
FULL/Lovenox
Total time spent on today's encounter was 52 minutes which included time spent in counseling the patient/family regarding diagnosis and treatment plan as listed above, goals of care, and symptom management. Case was discussed with nursing staff,
specialists, and care coordinators/case management. All labs and imaging personally reviewed by me. Remainder the time spent in detailed review of previous records, lab data, imaging, and other medical provider documentation.
Anticipated Discharge: > 48 hours
Subjective/Interval History
-
Date of Service: January 15, 2024
Patient has less abdominal pain. Patient has less dyskinetic movements. Afebrile. Increased leukocytosis though.
Objective Data
-
Labs:
Laboratory Results
01/15/24
03:28
WBC 30.2 H
Hgb 8.4 L
Hct 26.2 L
Plt Count 303
Sodium 138
Potassium 3.6
Chloride 96 L
Carbon Dioxide 37 H
BUN 21 H
Creatinine 0.3 L
Glucose 95
Calcium 8.3 L
Total Bilirubin 0.5
AST 36
ALT 13
Alkaline Phosphatase 106
Vital Signs:
Vital Signs
Temp Pulse Resp BP Pulse Ox
98.3 F 100 26 182/139 96
01/15/24 02:59 01/15/24 07:38 01/15/24 07:38 01/15/24 06:08 01/15/24 07:45
I&O
01/14/24 01/15/24 01/16/24
06:59 06:59 06:59
Intake Total 275 / 275 530 / 530
Output Total 698 / 698 452 / 452
Balance -423 / -423 /
--- NOTE | 2024-01-15 09:23 | W.PN.PUL.V3 ---
Today's Communication / Plan
-
Antibiotics
Wean FiO2
Monitor for pleural fluid increases
Encourage deep breaths, incentive spirometry, mucus clearing devices
Assessment
-
53-year-old female with past medical history of recurrent diverticulitis, pulmonary aspergillosis, hyperlipidemia, anxiety/depression, and GERD who presents with abdominal pain. She apparently was recently treated for diverticulitis in October 2023
with Augmentin at [facility] in [place] where she resides. She also reported that she was treated this month for ongoing fungal lung infection with Aspergillus and also given additional antibiotics but unknown what names of these
medications are. She developed a fever about 5 days ago and continues to be on Augmentin for last 3 days. She was visiting her mother in [place] prior to arrival when the pain in her left lower quadrant became severe so she came here to the
hospital for further care. She was afebrile in the ER to 98.6 �F, 79 pulse rate, breathing at 16 breaths/min, normotensive at 133/77 and saturating 100% on room air. Labs showed leukocytosis to 21.2, mild anemia to 11.5, mild hyponatremia to 134,
mild hyperkalemia to 5.6, and negative lipase of <10. CT A/P on admission showed severe sigmoid diverticulitis with large pericolonic abscess. She was given pain medications in the ER + Levaquin + IV fluids with NS x1L, and admitted to the
hospitalist service with general surgery consulted and antibiotics were started with Zosyn. She underwent IR CT-guided drainage on 12/24 with 170 cc of pale green purulent material seen - this later grew E. coli and group F Streptococcus. Patient
continues to be managed on the floor and was having issues with constipation. Repeat CT A/P performed on 01/02 showing decrease size in the abscess with pigtail drainage catheter seen in place, with massively distended right colon including the
cecum with stool distention and continued suspected distal descending colon/sigmoid diverticulitis. Given patient's worsening pain with distention and no flatus or BM in about 4 days, patient underwent exploratory laparotomy with splenic flexure
takedown, creation of end colostomy and omentectomy on 01/03/2024, and transferred to the ICU postoperatively. There was 150 cc of EBL and no immediate complications. Patient was stabilized and sent to the floor and pulmonary was reconsulted
01/12/2024 with ongoing hypoxemia.
#Sigmoid diverticulitis s/p exploratory laparotomy with splenic flexure takedown, end colostomy creation and omentectomy � POD #3
#Sigmoid diverticulitis c/b large pericolonic abscess s/p IR CT-guided drainage on 12/24 with purulent fluid growing E. coli + group F Streptococcus
#Constipation
#Leukocytosis
#Acute on chronic anemia (unknown baseline but she has been between 8.5�11.5g/dL since admission)
#Lower lobe pulmonary bronchiectasis � likely due to her history of chronic pulmonary aspergillosis diagnosed in fall 2022
#History of pulmonary aspergillosis on voriconazole
Plan:
Respiratory status remains tenuous in part due to patient's inability to take deep breaths, basilar atelectasis, effusion, etc.
Supplemental oxygen as needed-currently on 6 L-will change to high flow to add 'PEEP'-reviewed with IT APPLICATION ARCHITECT
Aspiration precautions
Incentive spirometry
Acapella
Mucus clearing devices
DuoNebs
Singulair continues
Patient takes Breo as an outpatient
Chest x-ray 01/13/2024-moderate left pleural effusion which is stable and left lower lobe infiltrate concerning for pneumonia also stable
Chest ultrasound 01/11/2024-small to moderate pleural effusion, thoracentesis canceled-not enough fluid for evacuation
Follow radiographically-monitor bilateral pleural effusions
Cultures reviewed
Antibiotics continue-Zosyn day # 21-changed to meropenem by infectious disease
Infectious disease following-correspondence reviewed
Left upper quadrant collection-IR drainage 01/14/2024
Surgery following-correspondence reviewed
CT abdomen 01/12/2024-fluid collection left upper quadrant contains anterior air-fluid level compatible with abscess increased compared to 01/08/2024, irregular fluid collection within left pelvis and superimposed infection of this collection cannot be
excluded, pigtail catheter in posterior pelvis no evidence of collection in this area, bilateral pleural effusions left greater than right most likely atelectasis
Nasogastric tube per surgery
Intermittent CT abdomen to follow-up on collections
Neurology following-correspondence reviewed
Restless legs still an issue
Rotigotine patch transdermally increased
DVT prophylaxis-on Lovenox
GI prophylaxis-on Protonix
Nutrition per surgery
Eventual physical therapy/Occupational Therapy
Reviewed with nursing as well as respiratory therapy
Outpatient pulmonary follow-up
Subjective Data
-
Date of Service:
Date of Service: January 15, 2024
Chief Complaint: Pulmonary Follow Up and Dyspnea Follow Up
Subjective:
Still agitated, abdominal pain improved, still on high flow oxygen, overall states that she feels better, not taking deep breaths, difficulties mobilizing secretions
Review of Systems
General: Other (Per HPI)
Objective Data
Data Reviewed
Vital Signs / I&O:
Vital Signs
Temp Pulse Resp BP Pulse Ox
98.3 F 100 26 182/139 96
01/15/24 02:59 01/15/24 07:38 01/15/24 07:38 01/15/24 06:08 01/15/24 07:45
Intake and Output
01/14/24 01/15/24 01/16/24
06:59 06:59 06:59
Intake Total 275 / 275 530 / 530
Output Total 698 / 698 452 / 452
Balance -423 / -423 78 / 78
SaO2: 96
Nasal Cannula flow liters per minute: 60
Physical Exam
General: Respiratory Distress (n) and Comfortable
HEENT: Normocephalic, Anicteric and Moist Mucous Membranes
Cardiovascular: Regular Rhythm
Respiratory: Wheeze (n), Crackles (Left basilar), Rhonchi (n), Non-Labored Respirations, Accessory Resp Muscle Use (n) and Stridor (n)
GI: Soft, Distended and Tender
Neurology: Awake, Alert and No Motor Deficits
Skin: Warm, Good Color, Cyanosis (n), Jaundice (n) and Rash
Labs/Micro/Reports
Lab Data
01/15/24 03:28
01/15/24 03:28
Microbiology
01/13/24 13:00 Abscess Wound Culture - Preliminary
Enterococcus species
Gram negative bacilli
01/13/24 13:00 Abscess Gram Stain - Preliminary
01/13/24 20:22 Blood/Venous Blood Culture - Preliminary
No Growth in 24 hours- Final report to follow
01/13/24 18:56 Blood/Venous Blood Culture - Preliminary
No Growth in 24 hours- Final report to follow
[2024-01-15] MEDS: NON-FORMULARY ITEM 1 UNIT PO (09:25)
[2024-01-15] MEDS: PROZAC 20 MG PO (09:27)
[2024-01-15] MEDS: SYMMETREL 100 MG PO ×2 (09:27→21:10)
[2024-01-15] MEDS: NSS (PRESERVATIVE FREE) 10 ML IV (09:27)
[2024-01-15] MEDS: PROTONIX IV 40 MG IV (09:27)
[2024-01-15] MEDS: VITAMIN D3 (cholecalciferol) 25 MCG PO (09:28)
[2024-01-15] MEDS: FOLVITE 50.2000000000000028 MG IV (09:28)
[2024-01-15] MEDS: VFEND 200 MG PO ×2 (09:28→21:10)
[2024-01-15] MEDS: TYLENOL 1000 MG PO (09:39)
--- NOTE | 2024-01-15 10:28 | W.PN.GS2 ---
Today's Communication / Plan
-
Supplements added.
Assessment / Plan
-
Assessment: 53 yo female with recent aspergillus pneumonia on O2 and on steroids presenting with complicated diverticulitis with large pelvic abscess, failed initial nonoperative management now status post Garcia's procedure.
12/25/2023 s/p IR drainage 12/25/2023.
01/03/2024 s/p exploratory laparotomy with takedown of splenic flexure, creation end colostomy with omentectomy
01/14/2024 s/p IR drain post op perisplenic fluid collection 01/14/24
Significant increase in leukocytosis to 30K, however clinically looks much better and vitals stable
May need repeat imaging over the weekend but will hold off for now.
Plan: low residue diet and encourage PO intake/supplements; okay for family to bring in food from home
Cont IVF pending adequate PO intake
Pain control: Tylenol, Toradol, IV Dilaudid PRN
Continue IV abx per ID recs
Psych recs appreciated.
Antibiotics per ID, recommendations appreciated.
DVT: Lovenox
GI: IV PPI
SCD's as tolerated for VTE ppx
Ostomy teaching.
Continue drains to bulb suction.
Time Spent
Total Time Spent with Patient (in minutes): 15
Subjective Data
-
Date of Service: January 15, 2024
Interval Events:
No acute events overnight. Improving slightly from the respiratory standpoint. Abdominal pain is reported to be much improved.
Objective Data
-
Intake and Output
01/14/24 01/15/24 01/16/24
06:59 06:59 06:59
Intake Total 275 / 275 530 / 530
Output Total 698 / 698 452 / 452
Balance -423 / -423 78 / 78
Intake:
Oral fluids 50 / 50 410 / 410
IV piggybacks 200 / 200 100 / 100
Amount instilled into Drain ( 25 / 25 20 / 20
Total)
Left Lower Sacrum Cole-Olmos
A Placed in IR
Left Upper Abdomen Placed in IR
Lower Back 5 /
Output:
Liquid stool amount 50 / 50 30 / 30
Colostomy 50 / 50 30 / 30
Drain Output (Total) 198 / 198
Left Abdomen Cole-Olmos
Left Lower Sacrum Cole-Olmos
A Placed in IR
Left Upper Abdomen Placed in IR 175 / 175
Lower Back
Urine, Voided 450 / 450 400 / 400
Other:
Number of approximated SMALL 1
amounts of urine
Number of approximated MODERATE 1 1
amounts of urine
Vital Signs
Temp Pulse Resp BP Pulse Ox
99.4 F 100 26 182/139 96
01/15/24 07:27 01/15/24 07:38 01/15/24 07:38 01/15/24 06:08 01/15/24 09:23
Lab Results
01/15/24 03:28
01/15/24 03:28
Calcium 8.3 mg/dl (8.4-10.2) L 01/15/24 03:28
Phosphorus 2.7 mg/dl (2.5-4.5) 01/12/24 03:05
Magnesium 2.2 mg/dl (1.6-2.3) 01/12/24 03:05
Total Bilirubin 0.5 mg/dl (0.2-1.3) 01/15/24 03:28
AST 36 U/L (14-36) 01/15/24 03:28
ALT 13 U/L (0-35) 01/15/24 03:28
Alkaline Phosphatase 106 U/L (38-126) 01/15/24 03:28
Total Protein 4.9 g/dl (6.3-8.2) L 01/15/24 03:28
Albumin 2.2 g/dl (3.5-5.0) L 01/15/24 03:28
Physical Exam
-
GENERAL/NEURO: Awake, Alert, no distress
CHEST: Unlabored breathing on RA
ABDOMEN: Soft, obese, mildly tender, left lower quadrant DAKOTA still purulent. Left upper quadrant IR drain with serosanguineous output. Midline wound repacked no significant purulence noted.
--- NOTE | 2024-01-15 12:29 | W.PN.UPDATE ---
Update Note
Progress Note Update
patient seen chart reviewed. spoke with nursing respiratory and dr haley. patient's movements seem to be much less with the administration of symmetrel and ingrezza. cannot use 80 mg doses of ingrezza given interaction with antifungals etc. so
far however there does seem to be improvement and it is only day two. no changes made in psych meds at this point. we will continue to follow
--- NOTE | 2024-01-15 13:45 | PTCARENOTE ---
Patient was having full body movement/ spasms at start of shift. Medications administered and patient is now sleeping with minimal movement. Patient has poor appetite. Very weak with difficulty moving in bed. PT consulted. 3 DAKOTA drains currently.
Wound care provided to surgical wound on abdomen. Colostomy draining brown stool. High flow nasal cannula, pulse ox 99%.
[2024-01-15] MEDS: ZOFRAN 4 MG IV (15:34)
[2024-01-15] MEDS: DILAUDID 0.5 MG IV ×2 (15:59→21:17)
--- NOTE | 2024-01-15 16:20 | CM ---
Patient with Dx Sigmoid diverticulitis with abscess, s/p Exploratory laparotomy, creation end colostomy, post op perisplenic fluid collection. O2 8L midflow. Receiving IV Abx. DAKOTA drains. Seen by Psych- med adjustments. PT/OT; requires assist of
2, rec skilled rehab.
Spoke with Abel, patient's brother & POA and Kathy, patient's sister in law; discussed SNF responses and provided [facility] ratings - they will review and let CM know their SNF preference. Offered to email SNF list ---> sent to [email or web address].
Answered questions about SNF admission process including insurance process. They say that the plan after rehab is home to Prieto's house. They will be meeting with the ostomy nurse Elsa on Thursday for colostomy training. Agree to talk
again next week re; SNF choices. They requested contacts be updated to make Abel primary contact, Kathy secondary contact and to remove patient's friend Colin at patient's request---> admitting notified.
Plan follow up with patient's brother & sister in law re; SNF preference.
[2024-01-15] MEDS: LOVENOX 40 MG SC (16:57)
[2024-01-15] MEDS: SINGULAIR 10 MG PO (16:58)
--- NOTE | 2024-01-15 17:24 | PTCARENOTE ---
DAKOTA drains each with 10ml or less of output. Patient has poor po intake. Health shake provided, patient is taking sips of it. Colostomy has brown liquid stool, small amount.
[2024-01-15] MEDS: DEPAKOTE ER (24 HR RELEASE) 250 MG PO (21:10)
[2024-01-15] MEDS: MELATONIN 5 MG PO (21:10)
[2024-01-16] VITALS (11 sets, daily range): BP systolic 114–191; BP diastolic 62–123; BMI 31.7
[2024-01-16] MEDS: MERREM 500 MG IV (05:34)
[2024-01-16] MEDS: STERILE WATER FOR INJECTION 10 ML IV (05:35)
[2024-01-16] MEDS: DILAUDID 0.5 MG IV (05:35)
[2024-01-16 05:50] LABS: % Basophils 0.2 % (0-2); % Immature Granulocytes 1.9 % (0-0.5); % Lymphocytes 4.7 % (20.5-51.1); % Monocytes 8.3 % (1.7-9.3); % Neutrophils 84.9 % (42.2-75.2); Absolute Immature Granulocytes 0.4 10^3/uL (0-0.05); Absolute Lymphocytes 1.1 10^3/uL (1.2-3.4); Absolute Neutrophils 20.2 10^3/uL (1.4-6.5); Hematocrit 25.6 % (37.0-47.0); Hemoglobin 8.6 g/dL (12.0-16.0); Mean Corp Hgb Conc. 33.6 g/dL (33.0-37.0); Mean Corpuscular Hgb 29.7 pg (27.0-31.0); Mean Corpuscular Volume 88.3 fL (81.0-99.0); Mean Platelet Volume 8.9 fL (7.4-10.4); Nucleated Red Blood Cells % 0.1 %; Platelet Count 416 10^3/uL (130-400); Red Cell Dist. Width 16.1 % (11.5-14.5); White Blood Cell Count 23.8 10^3/uL (4.8-10.8)
[2024-01-16 06:09] LABS: ALT (SGPT) 12 U/L (0-35); AST (SGOT) 37 U/L (14-36); Albumin 2.3 g/dl (3.5-5.0); Alkaline Phosphatase 105 U/L (38-126); Blood Urea Nitrogen 16 mg/dl (7-17); Calcium 8.4 mg/dl (8.4-10.2); Carbon Dioxide 34 mmol/L (22-30); Chloride 93 mmol/L (98-107); Estimated Creatinine Clearance > 125 ml/min; Glucose 89 mg/dl (70-99); Potassium 4.1 mmol/L (3.5-5.1); Sodium 135 mmol/L (135-145); Total Bilirubin 0.7 mg/dl (0.2-1.3); Total Protein 5.1 g/dl (6.3-8.2); eGFR > 60.00
--- NOTE | 2024-01-16 06:30 | PTCARENOTE ---
Patient able to sleep in short intervals overnight. Abd dressing changed/ DAKOTA irrigated per order. JPs with minimal output. Colostomy with moderate soft brown stool. Voiding via bedpan. Midflow 5L in place; Sp02 WNL. Non prod cough. BPs vary
depending on placement. Medicated with PRN Dilaudid for pain per pt request. Tele showing NSR/ST w/ PVCs. TD appears to subside after pt takes amantadine medication. Afebrile. Denies nausea/vomiting. RUE DL PICC dressing intact, lumens patent.
Encouraged to reposition self in bed as tolerated, assistance provided. Call richard within reach. Pt calls appropriately.
[2024-01-16] MEDS: NSS (PRESERVATIVE FREE) 10 ML IV (07:03)
[2024-01-16] MEDS: PROTONIX IV 40 MG IV (07:03)
--- NOTE | 2024-01-16 07:31 | W.PN.HOSP.TC ---
Today's Communication/Plan
-
IV antibiotics. Continue Ingrezza.
Assessment / Plan
Assessment / Plan
Gen: NAD, Awake and alert
Eyes: EOMI, PERRLA, no scleral icterus.
Neck: supple.
CV: RRR, +S1/S2, no m/r/g.
Resp: remains CTAB anteriorly, no rales, wheezes, or rhonchi.
Abd: remains +BS, soft, mild tenderness to palpation, ND.
Skin: No rashes.
Neuro: CN 2-12 intact, non-focal. Moving legs repetitively.
Psych: mostly calm
12/26/23 14:43 Blood/Venous Blood Culture - Final
No Growth - Final Report
12/26/23 12:59 Blood/Venous Blood Culture - Final
No Growth - Final Report
12/25/23 17:30 Abscess Wound Culture - Final
Escherichia coli
Escherichia coli#2
Streptococcus species
Group F Streptococcus
12/25/23 17:30 Abscess Gram Stain - Final
CT A/P 12/24/23:
1. Severe sigmoid diverticulitis with large complex pericolonic abscess in this region as described.
2. Probable chronic mild infectious/inflammatory bronchitis/bronchiolitis in the lung bases.
CT A/P 01/03/24: Markedly decreased posterior true pelvis abscess in comparison to prior pre-op chest drainage study with pigtail drainage catheter seen in the soft tissues of the left posterior true pelvis. Massively distended right colon including
cecum (cecum measuring up to 12 cm) with marked maximal colonic stool as well as gaseous distention of transverse and proximal descending colon, moderate stool with distention of the distal descending and sigmoid colon, limited in evaluation without
oral contrast opacification. Thickening Of the wall of the distal descending and proximal sigmoid colon which could represent colitis or diverticulitis. Partially obstructing distal colonic mass with inflammation cannot be excluded. No free air.
CT A/P 01/08/24:
1. Interval sigmoidectomy with creation of Sav pouch and diverting left lower quadrant colostomy. Midline laparotomy incision with small amount of fluid seen within the inferior margin of the incision.
2. Scattered pockets of abdominal and pelvic ascites with no definitive findings for fluid collection or abscess. Left transgluteal percutaneous drain remains in place with no significant abscess remaining within the left pelvis.
3. Small bilateral pleural effusions with adjacent atelectasis within the lower lobes.
4. Diffuse subcutaneous stranding/anasarca within both flanks and proximal thighs.
CT A/P 01/12/24:
There is a focal predominantly fluid collection in the left upper quadrant, which contains an anterior air-fluid level, compatible with an abscess. This has increased compared to examination of January 08, 2024. Of note, this collection is along the
anterior margin of the spleen, without a well-defined plane between the collection and the spleen.
There is also an irregular fluid collection within the left pelvis as described, and superimposed infection of this collection cannot be excluded.
There is a pigtail catheter in the left posterior pelvis, entering to the left gluteal region, with no evidence of a collection adjacent to this catheter.
Subcutaneous edema, greater in both flanks.
Bilateral pleural effusions, left greater than right. Parenchymal opacity within both lower lobes, greater on the left compared to the right. This is most likely atelectasis, although underlying pneumonia difficult to completely exclude
radiographically.
A/P:
Sigmoid diverticulitis with abscess:
-h/o diverticulosis/diverticulitis
-s/p abscess drainage 12/25/23 by IR. E. coli and Enterococcus Raffinosus on 01/12 wound cultures.
-with findings of massively distended right colon including the cecum on CT scan of the abdomen pelvis on January 03, 2024 the patient was taken to the OR for Exploratory laparotomy, takedown splenic flexure, creation end colostomy, omentectomy
-ID changing IV meropenem back to Zosyn today on 01/15.
-IV Dilaudid PRN (was on dilaudid MERCHANDISE SHOPPER prior)
-repeated CT scan of the abdomen per surgery--> results as above and reviewed.
-Status post IR drain on 01/12.
-Follow-up repeat blood cultures for recurrent fevers since 01/12 but so far no growth but initial wound cultures growing E. coli and Enterococcus Raffinosus
-Low residue diet per surgery
-Discussed with family over the phone on 01/13
Leukocytosis:
Now started to trend down.
Continue current antibiotics
Continue to trend
Prior to today:
Unclear if related to abdominal process. Might need to repeat CT of the abdomen.
Discussed with IR again about possibility of thoracentesis but reiterated that pleural fluid is too small.
Continue antibiotics per ID.
Acute hypoxic respiratory insufficiency:
Continue high flow oxygen for increased PEEP.
Chest x-ray on 01/12 persistent moderate left pleural effusion-->Taken for possible thoracentesis on 01/10 but not enough fluid to be tapped. Discussed again with IR on 01/14 and not enough fluid.
Pulmonary following
She was placed on 10 L of oxygen and increased to high flow oxygen by pulmonary recommendations.
Discussed with outpatient binder coverstitch 01/12 was able to call me back and relayed information of what has been transpiring.
Currently on IV antibiotics
Checking sputum culture
Dyskinetic movements/Restless Legs:
-Psychiatry and neurology have decided to start her on Ingrezza. Seems to be working well.
-Also started on amantadine.
-Stopped Requip and Neupro patch
-Started melatonin
-Remains on trazodone 100 mg as needed, Flexeril as needed, Dilaudid as needed, and Depakote and psych discussed with outpatient psychiatrist who felt she did not have manic episode but patient decided to continue Depakote.
-Seroquel stopped as Vfend increases serum concentration of Seroquel.
-Avoid antidopaminergic agents as much as possible
Thrombosis left upper extremity:
Superficial thrombosis in the left basilic vein (no DVT)
On Lovenox 40 mg daily for prevention DVT and will be enough for above plus local care.
Acute blood loss anemia:
-Hemoglobin 8.6 today
-s/p 3U pRBCs
Other problems:
h/o pulmonary Aspergillus: since Apr 2023. cont Vfend.
Hyperkalemia, resolved
HLD
GERD: cont PPI
Anxiety/depression: Continue Trazodone PRN/Prozac/Depakote. Seroquel stopped by psych.
FULL/Lovenox
Total time spent on today's encounter was 52 minutes which included time spent in counseling the patient/family regarding diagnosis and treatment plan as listed above, goals of care, and symptom management. Case was discussed with nursing staff,
specialists, and care coordinators/case management. All labs and imaging personally reviewed by me. Remainder the time spent in detailed review of previous records, lab data, imaging, and other medical provider documentation.
Anticipated Discharge: > 48 hours
Subjective/Interval History
-
Date of Service: January 16, 2024
Patient alert. She has less abdominal pain. No nausea or vomiting. She has less to almost none dyskinetic movements. Afebrile
Objective Data
-
Labs:
Laboratory Results
01/16/24
05:42
WBC 23.8 H
Hgb Pending
Hct 25.6 L
Plt Count 416 H D
Sodium 135
Potassium 4.1
Chloride 93 L
Carbon Dioxide 34 H
BUN 16
Creatinine 0.2 L
Glucose 89
Calcium 8.4
Total Bilirubin 0.7
AST 37 H
ALT 12
Alkaline Phosphatase 105
Vital Signs:
Vital Signs
Temp Pulse Resp BP Pulse Ox
98.7 F 88 19 162/80 97
01/16/24 03:40 01/16/24 06:00 01/16/24 06:00 01/16/24 06:00 01/16/24 06:00
I&O
01/15/24 01/16/24 01/17/24
06:59 06:59 06:59
Intake Total 530 / 530 605 / 605
Output Total 452 / 452 325 / 325
Balance 78 / 78 280 / 280
[2024-01-16] MEDS: PULMICORT 0.5 MG INH ×2 (07:34→20:05)
[2024-01-16] MEDS: DUONEB 3 ML INH ×3 (07:34→20:05)
[2024-01-16] MEDS: NON-FORMULARY ITEM 1 UNIT PO (08:32)
[2024-01-16] MEDS: SYMMETREL 100 MG PO ×2 (08:33→19:58)
[2024-01-16] MEDS: PROZAC 20 MG PO (08:33)
[2024-01-16] MEDS: VITAMIN D3 (cholecalciferol) 25 MCG PO (08:33)
--- NOTE | 2024-01-16 10:21 | W.PN.PUL3 ---
Today's Communication / Plan
-
Antibiotics per ID
Wean FiO2
Monitor for pleural fluid re-accumulation
Encourage deep breaths, incentive spirometry, mucus clearing devices
Outpatient pulmonary follow-up -she has a silver brazer as well as an ID doctor in [place], [place], and I advised her to follow-up with those specialists once she is discharged.
Assessment
-
53-year-old female with past medical history of recurrent diverticulitis, pulmonary aspergillosis, hyperlipidemia, anxiety/depression, and GERD who presents with abdominal pain. She apparently was recently treated for diverticulitis in October 2023
with Augmentin at [facility] in [place] where she resides. She also reported that she was treated this month for ongoing fungal lung infection with Aspergillus and also given additional antibiotics but unknown what names of these
medications are. She developed a fever about 5 days ago and continues to be on Augmentin for last 3 days. She was visiting her mother in [place] prior to arrival when the pain in her left lower quadrant became severe so she came here to the ""hospital for further care. She was afebrile in the ER to 98.6 �F, 79 pulse rate, breathing at 16 breaths/min, normotensive at 133/77 and saturating 100% on room air. Labs showed leukocytosis to 21.2, mild anemia to 11.5, mild hyponatremia to 134,
mild hyperkalemia to 5.6, and negative lipase of <10. CT A/P on admission showed severe sigmoid diverticulitis with large pericolonic abscess. She was given pain medications in the ER + Levaquin + IV fluids with NS x1L, and admitted to the
hospitalist service with general surgery consulted and antibiotics were started with Zosyn. She underwent IR CT-guided drainage on 12/24 with 170 cc of pale green purulent material seen - this later grew E. coli and group F Streptococcus. Patient
continues to be managed on the floor and was having issues with constipation. Repeat CT A/P performed on 01/02 showing decrease size in the abscess with pigtail drainage catheter seen in place, with massively distended right colon including the
cecum with stool distention and continued suspected distal descending colon/sigmoid diverticulitis. Given patient's worsening pain with distention and no flatus or BM in about 4 days, patient underwent exploratory laparotomy with splenic flexure
takedown, creation of end colostomy and omentectomy on 01/03/2024, and transferred to the ICU postoperatively. There was 150 cc of EBL and no immediate complications. Patient was stabilized and sent to the floor and pulmonary was reconsulted
01/12/2024 with ongoing hypoxemia.
Impression:
#Sigmoid diverticulitis s/p exploratory laparotomy with splenic flexure takedown, end colostomy creation and omentectomy � OR date: 01/12/2024
#Sigmoid diverticulitis c/b large pericolonic abscess s/p IR CT-guided drainage on 12/24 with purulent fluid growing E. coli + group F Streptococcus
#Constipation
#Leukocytosis
#Chronic anemia (unknown baseline but she has been between 8.5�11.5g/dL since admission)
#Lower lobe pulmonary bronchiectasis � likely due to her history of chronic pulmonary aspergillosis diagnosed in fall 2022
#History of pulmonary aspergillosis on voriconazole
Plan:
Respiratory status remains tenuous in part due to patient's inability to take deep breaths, basilar atelectasis, effusion, etc.
Supplemental oxygen as needed-currently on 5 L/min - she likes this O2 delivery as compared to high flow --> wean down O2 flow rate as tolerated
Aspiration precautions
Incentive spirometry
Acapella
Mucus clearing devices
DuoNebs TID + budesonide BID
Singulair continues
Patient takes Breo as an outpatient
Chest x-ray 01/13/2024-moderate left pleural effusion which is stable and left lower lobe infiltrate concerning for pneumonia also stable
Chest ultrasound 01/11/2024-small to moderate pleural effusion, thoracentesis canceled-not enough fluid for evacuation
Follow radiographically-monitor bilateral pleural effusions
Cultures reviewed
Continue antibiotics - pt was on Zosyn (started 12/24/2023) and then changed to Meropenem on 01/13, and today she is back on Zosyn
Defer ABx to Infectious disease-correspondence reviewed
Left upper quadrant collection-IR drainage 01/14/2024
Continue voriconazole for her Hx of pulmonary aspergillosis
Surgery following-correspondence reviewed
CT abdomen 01/12/2024-fluid collection left upper quadrant contains anterior air-fluid level compatible with abscess increased compared to 01/08/2024, irregular fluid collection within left pelvis and superimposed infection of this collection cannot be
excluded, pigtail catheter in posterior pelvis no evidence of collection in this area, bilateral pleural effusions left greater than right most likely atelectasis
Nasogastric tube per surgery
Intermittent CT abdomen to follow-up on collections
Neurology following-correspondence reviewed
Restless legs still an issue
Rotigotine patch transdermally increased
DVT prophylaxis-on Lovenox
GI prophylaxis-on Protonix
Nutrition per surgery
PT/OT --> rec'd skilled rehab upon discharge
Reviewed with nursing as well as respiratory therapy
Outpatient pulmonary follow-up -she has a silver brazer as well as an ID doctor in [place], [place], and I advised her to follow-up with those specialists once she is discharged.
Total time spent today was 35 minutes for this encounter. Time includes reviewing laboratory test/imaging results, reviewing pertinent medical records, obtaining and reviewing medical history, performing an appropriate exam, ordering medications,
tests and procedures. Time also includes documentation of this encounter, coordinating patient care and communicating with other healthcare professionals. Total time does not include separately billed tests performed on this date of service.
Subjective Data
-
Date of Service:
Date of Service: January 16, 2024
Chief Complaint: Pulmonary Follow Up and Dyspnea Follow Up
Subjective:
Patient seen and evaluated today at bedside. She is sitting in chair getting a neb treatment. She is saturating 97% on 5 L/min nasal cannula. Heart rate 100, and she denies shortness of breath. Afebrile overnight. She denies chest pain,
headache, fevers or chills.
Review of Systems
General: Other (Negative unless mentioned above)
Objective Data
Data Reviewed
Vital Signs / I&O / Oxygen:
Vital Signs
Temp Pulse Resp BP Pulse Ox
98.0 F 89 13 157/84 97
01/16/24 07:23 01/16/24 08:00 01/16/24 08:00 01/16/24 08:00 01/16/24 09:10
Intake and Output
01/15/24 01/16/24 01/17/24
06:59 06:59 06:59
Intake Total 530 / 530 605 / 605
Output Total 452 / 452 325 / 325
Balance 78 / 78 280 / 280
SaO2 97
Nasal Cannula flow liters per 6
minute
Physical Exam
General: Respiratory Distress (n) and Comfortable
HEENT: Normocephalic, Anicteric and Moist Mucous Membranes
Cardiovascular: S1-S2 and Peripheral Edema (Negative)
Respiratory: Wheeze (n), Crackles (Bilaterally), Rhonchi (n), Non-Labored Respirations, Accessory Resp Muscle Use (n) and Stridor (n)
GI: Soft, Distended and Tender
Neurology: Awake, Alert and Tremors (n)
Skin: Warm, Dry, Cyanosis (n) and Jaundice (n)
Labs/Micro/Reports
Lab Data
01/16/24 05:42
01/16/24 05:42
Microbiology
01/13/24 20:22 Blood/Venous Blood Culture - Preliminary
No Growth in 48 hours- Final report to follow
01/13/24 18:56 Blood/Venous Blood Culture - Preliminary
No Growth in 48 hours- Final report to follow
01/15/24 10:08 Sputum Respiratory Culture - Final
01/15/24 10:08 Sputum Gram Stain - Final
01/13/24 13:00 Abscess Wound Culture - Final
Enterococcus raffinosus
Escherichia coli
01/13/24 13:00 Abscess Gram Stain - Final
[2024-01-16] MEDS: VFEND 200 MG PO ×2 (10:45→19:58)
[2024-01-16] MEDS: FOLVITE 50.2000000000000028 MG IV (10:45)
--- NOTE | 2024-01-16 11:01 | PTCARENOTE ---
Pt is AAOx3 on 5l midflow lungs are coarse. Pt is showing some independence with gettinh herselfup in bed and ordering her own meals. Pt less restless than in the past few days. Pt refuses sEnsure spoke with surgeon carine gordon and brother will bring in
protein shake she likes.
--- NOTE | 2024-01-16 11:21 | W.PN.ID1 ---
Date of Service
Date of Service: January 16, 2024
Today's Communication
DC meropenem and resume Zosyn.
Assessment / Plan
Diverticulitis
Diverticular abscess status post IR drainage
S/p exploratory lap, colostomy (01/03/2024)
Leukocytosis
LUQ collection
Hx Pulmonary aspergillosis; on prior Vfend as outpatient
Anxiety/depression
Hx steroid-induced psychosis
GERD
Recommendations:
Current issue may be left upper quadrant collection; s/p IR drainage 01/13/2024. Cultures E. coli, Enterococcus raffinosus.
Leukocytosis improving with source control.
DC Meropenem. Resume Zosyn.
Continue to monitor white count and temperature curve.
Continue with voriconazole.
����������������������������������������������������������
Chief Complaint
-: Leukocytosis and Other (Diverticulitis; diverticular abscess)
Subjective / Review of Systems
Abdomen sore
Vital Signs / Physical Exam
Vital Signs
Vital Signs
Temp Pulse Resp BP Pulse Ox
98.0 F 98 28 164/91 96
01/16/24 07:23 01/16/24 10:00 01/16/24 10:00 01/16/24 10:00 01/16/24 10:00
Physical Exam
Constitutional: No Acute Distress
Gastrointestinal: Soft, Tender (mild), Decreased Bowel Sounds and Other (DAKOTA drain cloudy cm fluid)
Genito-Urinary: Negative CVA Tenderness
Neurological: AO x 3
Objective Data
Lab Data
Lab Results
01/16/24 05:42
01/16/24 05:42
PT 15.3 Sec (11.4-14.6) H 01/06/24 15:22
INR 1.21 01/06/24 15:22
APTT 35.6 Sec (23.4-35.0) H 01/06/24 15:22
Estimated Creat Clear > 125 ml/min 01/16/24 05:42
Lactic Acid Cancelled 01/04/24 09:00
Total Bilirubin 0.7 mg/dl (0.2-1.3) 01/16/24 05:42
AST 37 U/L (14-36) H 01/16/24 05:42
ALT 12 U/L (0-35) 01/16/24 05:42
Alkaline Phosphatase 105 U/L (38-126) 01/16/24 05:42
Most recent labs reviewed.
Micro Results:
01/13/24 20:22 Blood Culture - Preliminary
Blood/Venous No Growth in 48 hours- Final report to follow
01/13/24 18:56 Blood Culture - Preliminary
Blood/Venous No Growth in 48 hours- Final report to follow
01/15/24 10:08 Respiratory Culture - Final
Sputum Gram Stain - Final
01/13/24 13:00 Wound Culture - Final
Abscess Enterococcus raffinosus
Escherichia coli
Gram Stain - Final
01/09/24 14:28 Nasal Screen MRSA (PCR) - Final
Nose MRSA not detected - performed by PCR methodology.
12/26/23 14:43 Blood Culture - Final
Blood/Venous No Growth - Final Report
12/26/23 12:59 Blood Culture - Final
Blood/Venous No Growth - Final Report
12/25/23 17:30 Wound Culture - Final
Abscess Escherichia coli
Escherichia coli#2
Streptococcus species
Group F Streptococcus
Gram Stain - Final
Wound/abscess/other Cult Final 12/28/23-820
Many 1st strain Escherichia coli
Few 2nd strain Escherichia coli
Many Streptococcus species of two morphotypes
Moderate Group F Streptococcus*
1. Escherichia coli
M.I.C. RX
--------- ---
Amoxicillin/Potas. Clavulanate 16/8 I
Ampicillin >16 R
Ampicillin/Sulbactam >16/8 R
Cefazolin >16 R
Cefepime <=2 S
Ceftazidime <=1 S
Ceftriaxone <=1 S
Ertapenem <=0.5 S
Ciprofloxacin <=0.25 S
Gentamicin >8 R
Levofloxacin <=0.5 S
Meropenem <=1 S
Piperacillin/Tazobactam <=16 S
Tobramycin 8 I
Trimethoprim/Sulfamethoxazole >238 R
2. Escherichia coli#2
M.I.C. RX
--------- ---
Amoxicillin/Potas. Clavulanate <=8/4 S
Ampicillin >16 R
Ampicillin/Sulbactam >16/8 R
Cefazolin 16 R
Cefepime <=2 S
Ceftazidime <=1 S
Ceftriaxone <=1 S
Ertapenem <=0.5 S
Ciprofloxacin <=0.25 S
Gentamicin <=4 S
Levofloxacin <=0.5 S
Meropenem <=1 S
Piperacillin/Tazobactam <=16 S
Tobramycin <=4 S
Trimethoprim/Sulfamethoxazole >/38 R
Imaging:
01/12/2024 CT abdomen/pelvis with contrast: There is a focal predominantly fluid collection in the left upper quadrant, which contains an anterior air-fluid level, compatible with an abscess. This has increased compared to examination of January 07,
2023. Of note, this collection is along the anterior margin of the spleen, without a well-defined plane between the collection and the spleen. There is also an irregular fluid collection within the left pelvis as described, and superimposed
infection of this collection cannot be excluded. There is a pigtail catheter in the left posterior pelvis, entering to the left gluteal region, with no evidence of a collection adjacent to this catheter. Subcutaneous edema, greater in both flanks.
Bilateral pleural effusions, left greater than right. Parenchymal opacity within both lower lobes, greater on the left compared to the right. This is most likely atelectasis, although underlying pneumonia difficult to completely exclude
radiographically.
01/03/2024 CT abdomen/pelvis: Markedly decreased posterior true pelvis abscess in comparison to prior pre-op chest drainage study with pigtail drainage catheter seen in the soft tissues of the left posterior true pelvis. Massively distended right
colon including cecum (cecum measuring up to 12 cm) with marked maximal colonic stool as well as gaseous distention of transverse and proximal descending colon, moderate stool with distention of the distal descending and sigmoid colon, limited in
evaluation without oral contrast opacification. Thickening Of the wall of the distal descending and proximal sigmoid colon which could represent colitis or diverticulitis. Partially obstructing distal colonic mass with inflammation cannot be
excluded. No free air. Please see full dictation for additional detail.
--- NOTE | 2024-01-16 11:48 | W.PN.GS2 ---
Addendum entered and electronically signed by Deion Roman MD 01/16/24 13:03:
I saw and examined the patient.
The PA's note was reviewed and I agree with the note.
Comment:
Feeling better today, having ostomy function, tolerating low residue diet; still dyspneic with speaking
AFVSS, ABD S/ND/appropriately tender, ostomy pink, incisions CDI
WBC 23.8 from 30, Hb 8.6 from 8.4
�Continue low residue
� Continue IV antibiotics, appreciate ID
� Appreciate WOCN
� Continue drains to bulb suction
�Appreciate hospitalist
Original Note:
Today's Communication / Plan
-
Continue diet with supplements
ABX as per ID
Local wound care
Assessment / Plan
-
Assessment: 53 yo female with recent aspergillus pneumonia on home O2 and on recent steroids presenting with complicated diverticulitis with large pelvic abscess, failed initial nonoperative management now status post Garcia's procedure.
12/25/2023 s/p IR drainage of abscess cx with 2 strep species and 2 species of e.coli noted
01/03/2024 s/p exploratory laparotomy with takedown of splenic flexure, creation end colostomy with omentectomy
01/13/2024 s/p IR drain post op perisplenic fluid collection 01/14/24 cx with enterococcus/e. coli.
Clinically improving
Off TPN since 01/12, tolerating diet thus far
AFVSS
Leukocytosis improving, h/h stable
Plan: Low residue diet and encourage PO intake/supplements; okay for family to bring in food/supplements from home
Pain control: Tylenol, Oxycodone, IV Dilaudid PRN
Continue IV abx per ID recs
Ostomy teaching.
Continue drains x3 to bulb suction. Flush IR drains x2 daily
Daily dressing changes to midline incision, dry gauze packing to open area in middle of wound
DVT: SCDs as tolerated/Lovenox
GI: IV PPI
Subjective Data
-
Date of Service: January 16, 2024
Patient seen and examined at bedside with Dr. Roman. Reports slowly beginning to feel better. Denies n/v, but no appetite. Pain improving overall.
Objective Data
-
Intake and Output
01/15/24 01/16/24 01/17/24
06:59 06:59 06:59
Intake Total 530 / 530 605 / 605
Output Total 452 / 452 325 / 325
Balance 78 / 78 280 / 280
Intake:
Oral fluids 410 / 410 600 / 600
IV piggybacks 100 / 100
Amount instilled into Drain ( / 20 5 5
Total)
Left Lower Sacrum Cole-Olmos
A Placed in IR
Left Upper Abdomen Placed in IR
Output:
Liquid stool amount 30 / 30 50 / 50
Colostomy 30 / 30 50 / 50
Drain Output (Total) 35 / 35
Left Abdomen Cole-Olmos 10
Left Lower Sacrum Cole-Olmos
A Placed in IR
Left Upper Abdomen Placed in IR / 5
Urine, Voided 400 / 400 240 / 240
Other:
Number of approximated SMALL 1
amounts of urine
Number of approximated MODERATE 1 1
amounts of urine
Vital Signs
Temp Pulse Resp BP Pulse Ox
99.3 F 98 28 164/91 96
01/16/24 11:46 01/16/24 10:00 01/16/24 10:00 01/16/24 10:00 01/16/24 10:00
Lab Results
01/16/24 05:42
01/16/24 05:42
Calcium 8.4 mg/dl (8.4-10.2) 01/16/24 05:42
Phosphorus 2.7 mg/dl (2.5-4.5) 01/12/24 03:05
Magnesium 2.2 mg/dl (1.6-2.3) 01/12/24 03:05
Total Bilirubin 0.7 mg/dl (0.2-1.3) 01/16/24 05:42
AST 37 U/L (14-36) H 01/16/24 05:42
ALT 12 U/L (0-35) 01/16/24 05:42
Alkaline Phosphatase 105 U/L (38-126) 01/16/24 05:42
Total Protein 5.1 g/dl (6.3-8.2) L 01/16/24 05:42
Albumin 2.3 g/dl (3.5-5.0) L 01/16/24 05:42
Physical Exam
-
NAD, Ox3
Some dyspnea with conversation
ABD: Soft, obese, mildly tender, left lower quadrant DAKOTA still purulent. Left upper quadrant IR drain with serosanguineous output. Midline wound repacked no significant purulence noted.
IR drain #1: seropurulent
IR drain #2: serosanguineous
DAKOTA drain: purulent
[2024-01-16] MEDS: ZOSYN 50 IV ×3 (11:56→22:41)
[2024-01-16] MEDS: DILAUDID 1 MG IV ×2 (11:56→19:58)
[2024-01-16] MEDS: ZOFRAN 4 MG IV ×2 (12:04→19:37)
--- NOTE | 2024-01-16 16:27 | PTCARENOTE ---
Pt now on 4l O2 OOb to chair family visiting.
--- NOTE | 2024-01-16 17:10 | W.PN.UPDATE ---
Update Note
Progress Note Update
Pt seen & evaluated at bedside - sitting up in chair by bed. Reports that movements have improved since starting symmetrel and ingrezza, though says she does not feel as much of a difference as she is told by outside observers. Discussed limitation
to ingrezza dosing due to interaction with antifungals, which pt is understanding of. Is hopeful that with more time movements will improve further and provide her some more relief.
Notes no worsening of sxs with depakote decrease & does not remember feeling a positive change when she first started depakote.
Continue current regimen - can likely stop depakote, will continue through weekend and trial d/c on Wednesday 01/17
[2024-01-16] MEDS: LOVENOX 40 MG SC (17:20)
[2024-01-16] MEDS: SINGULAIR 10 MG PO (17:21)
[2024-01-16] MEDS: DEPAKOTE ER (24 HR RELEASE) 250 MG PO (19:58)
[2024-01-16] MEDS: MELATONIN 5 MG PO (19:58)
[2024-01-16] MEDS: DESYREL 100 MG PO (22:41)
[2024-01-17] VITALS (12 sets, daily range): BP systolic 110–171; BP diastolic 33–95; BMI 32.7
--- NOTE | 2024-01-17 04:41 | PTCARENOTE ---
Patient c/o nausea after eating about 50% of her dinner; prn zofran provided with relief. Assisted back to bed safely from the chair using three people, patient's legs became weak and unsteady from TD movements. Unable to use the [id number] d/t
abd incision/drains. CHADWICK present, Sp02 88-89% midflow increased to 5L and Sp02 increased to 92%. Encouraged slow breaths in through the nose. Pain med per MAR for abd pain 5-01/17, good result. Swallowing w/o issues. LUQ DAKOTA bulb does not remain
compressed; it will compress for several seconds but will re-inflate after a few minutes. Wound care provided to abdominal incision, JPs irrigated per orders. Voiding via bedpan. Colostomy intact with small brown output. Pt able to help with
repositioning in bed. Bilateral LE/lower abd edematous. Tele showing NSR/ST, frequent PVCs. RUE PICC dressing intact, lumens patent, labs drawn this morning. Call richard within reach. Pt calls appropriately.
[2024-01-17 04:47] LABS: Hematocrit 25.1 % (37.0-47.0); Hemoglobin 8.4 g/dL (12.0-16.0); Mean Corp Hgb Conc. 33.5 g/dL (33.0-37.0); Mean Corpuscular Hgb 29.8 pg (27.0-31.0); Platelet Count 460 10^3/uL (130-400); Red Blood Cell Count 2.82 10^6/uL (4.20-5.40); Red Cell Dist. Width 16.1 % (11.5-14.5)
[2024-01-17] MEDS: DILAUDID 1 MG IV (04:59)
[2024-01-17] MEDS: ZOSYN 50 IV ×4 (05:00→23:54)
[2024-01-17 05:12] LABS: Blood Urea Nitrogen 13 mg/dl (7-17); Calcium 8.4 mg/dl (8.4-10.2); Carbon Dioxide 39 mmol/L (22-30); Chloride 91 mmol/L (98-107); Estimated Creatinine Clearance > 125 ml/min; Glucose 97 mg/dl (70-99); Sodium 134 mmol/L (135-145); eGFR > 60.00
[2024-01-17] MEDS: PROTONIX IV 40 MG IV (07:04)
[2024-01-17] MEDS: NSS (PRESERVATIVE FREE) 10 ML IV (07:04)
[2024-01-17] MEDS: DUONEB 3 ML INH ×3 (07:18→20:36)
[2024-01-17] MEDS: PULMICORT 0.5 MG INH ×2 (07:18→20:36)
--- NOTE | 2024-01-17 09:06 | W.PN.HOSP.TC ---
Today's Communication/Plan
-
IV antibiotics. Continue voriconazole. Continue Ingrezza. PT OT
Assessment / Plan
Assessment / Plan
Gen: NAD, Awake and alert
Eyes: EOMI, PERRLA, no scleral icterus.
Neck: supple.
CV: RRR, +S1/S2, no m/r/g.
Resp: remains CTAB anteriorly, no rales, wheezes, or rhonchi.
Abd: remains +BS, soft, mild tenderness to palpation, ND.
Skin: No rashes.
Neuro: CN 2-12 intact, non-focal. No dyskinesia today.
Psych: mostly calm
12/26/23 14:43 Blood/Venous Blood Culture - Final
No Growth - Final Report
12/26/23 12:59 Blood/Venous Blood Culture - Final
No Growth - Final Report
12/25/23 17:30 Abscess Wound Culture - Final
Escherichia coli
Escherichia coli#2
Streptococcus species
Group F Streptococcus
12/25/23 17:30 Abscess Gram Stain - Final
CT A/P 12/24/23:
1. Severe sigmoid diverticulitis with large complex pericolonic abscess in this region as described.
2. Probable chronic mild infectious/inflammatory bronchitis/bronchiolitis in the lung bases.
CT A/P 01/03/24: Markedly decreased posterior true pelvis abscess in comparison to prior pre-op chest drainage study with pigtail drainage catheter seen in the soft tissues of the left posterior true pelvis. Massively distended right colon including
cecum (cecum measuring up to 12 cm) with marked maximal colonic stool as well as gaseous distention of transverse and proximal descending colon, moderate stool with distention of the distal descending and sigmoid colon, limited in evaluation without
oral contrast opacification. Thickening Of the wall of the distal descending and proximal sigmoid colon which could represent colitis or diverticulitis. Partially obstructing distal colonic mass with inflammation cannot be excluded. No free air.
CT A/P 01/08/24:
1. Interval sigmoidectomy with creation of Sav pouch and diverting left lower quadrant colostomy. Midline laparotomy incision with small amount of fluid seen within the inferior margin of the incision.
2. Scattered pockets of abdominal and pelvic ascites with no definitive findings for fluid collection or abscess. Left transgluteal percutaneous drain remains in place with no significant abscess remaining within the left pelvis.
3. Small bilateral pleural effusions with adjacent atelectasis within the lower lobes.
4. Diffuse subcutaneous stranding/anasarca within both flanks and proximal thighs.
CT A/P 01/12/24:
There is a focal predominantly fluid collection in the left upper quadrant, which contains an anterior air-fluid level, compatible with an abscess. This has increased compared to examination of January 08, 2024. Of note, this collection is along the
anterior margin of the spleen, without a well-defined plane between the collection and the spleen.
There is also an irregular fluid collection within the left pelvis as described, and superimposed infection of this collection cannot be excluded.
There is a pigtail catheter in the left posterior pelvis, entering to the left gluteal region, with no evidence of a collection adjacent to this catheter.
Subcutaneous edema, greater in both flanks.
Bilateral pleural effusions, left greater than right. Parenchymal opacity within both lower lobes, greater on the left compared to the right. This is most likely atelectasis, although underlying pneumonia difficult to completely exclude
radiographically.
A/P:
Sigmoid diverticulitis with abscess:
-h/o diverticulosis/diverticulitis
-s/p abscess drainage 12/25/23 by IR. E. coli and Enterococcus Raffinosus on 01/12 wound cultures.
-with findings of massively distended right colon including the cecum on CT scan of the abdomen pelvis on January 03, 2024 the patient was taken to the OR for Exploratory laparotomy, takedown splenic flexure, creation end colostomy, omentectomy
-ID changing IV meropenem back to Zosyn since 01/15.
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
-repeated CT scan of the abdomen per surgery--> results as above and reviewed.
-Status post IR drain on 01/12.
-Follow-up repeat blood cultures for recurrent fevers since 01/12 but so far no growth but initial wound cultures growing E. coli and Enterococcus Raffinosus
-Low residue diet per surgery
-Discussed with family over the phone prior
Leukocytosis:
Now started to trend down.
WBC 22 trended down today
Continue current antibiotics
Continue to trend
Prior to today:
Likely related to abdominal process. Might need to repeat CT of the abdomen.
Discussed with IR again about possibility of thoracentesis but reiterated that pleural fluid is too small.
Continue antibiotics per ID.
Acute hypoxic respiratory insufficiency:
Continue high flow oxygen for increased PEEP--> now down to 5 L of oxygen.
Continue to titrate oxygen as able.
Chest x-ray on 01/12 persistent moderate left pleural effusion-->Taken for possible thoracentesis on 01/10 but not enough fluid to be tapped. Discussed again with IR on 01/14 and not enough fluid.
Pulmonary following
She was placed on 10 L of oxygen and increased to high flow oxygen by pulmonary recommendations.
Discussed with outpatient vulcanized fiber unit operator 01/12 was able to call me back and relayed information of what has been transpiring.
Currently on IV antibiotics
Checking sputum culture
Dyskinetic movements/Restless Legs:
-Psychiatry and neurology have decided to start her on Ingrezza. Seems to be working well.
-Also started on amantadine.
-Stopped Requip and Neupro patch
-Started melatonin
-Remains on trazodone 100 mg as needed, Flexeril as needed, Dilaudid as needed, and Depakote and psych discussed with outpatient psychiatrist who felt she did not have manic episode but patient decided to continue Depakote. Depakote doses have been
decreased with the possibility of discontinuing altogether in the near future.
-Seroquel stopped as Vfend increases serum concentration of Seroquel.
-Avoid antidopaminergic agents as much as possible
Thrombosis left upper extremity:
Superficial thrombosis in the left basilic vein (no DVT)
On Lovenox 40 mg daily for prevention DVT and will be enough for above plus local care.
Acute blood loss anemia:
-Hemoglobin 8.6 today
-s/p 3U pRBCs
Other problems:
h/o pulmonary Aspergillus: since Apr 2023. cont Vfend.
Hyperkalemia, resolved
HLD
GERD: cont PPI
Anxiety/depression: Continue Trazodone PRN/Prozac/Depakote. Seroquel stopped by psych.
FULL/Lovenox
Total time spent on today's encounter was 52 minutes which included time spent in counseling the patient/family regarding diagnosis and treatment plan as listed above, goals of care, and symptom management. Case was discussed with nursing staff,
specialists, and care coordinators/case management. All labs and imaging personally reviewed by me. Remainder the time spent in detailed review of previous records, lab data, imaging, and other medical provider documentation.
Anticipated Discharge: > 48 hours
Subjective/Interval History
-
Date of Service: January 17, 2024
Patient more alert today. Less shortness of breath. Less abdominal pain. Less dyskinetic movements. She was able to have a conversation today and wanted to discuss about plan of care and discharge disposition and we went over those details.
Afebrile
Objective Data
-
Labs:
Laboratory Results
01/17/24
04:14
WBC 22.0 H
Hgb 8.4 L
Hct 25.1 L
Plt Count 460 H
Sodium 134 L
Potassium 4.0
Chloride 91 L
Carbon Dioxide 39 H
BUN 13
Creatinine 0.3 L
Glucose 97
Calcium 8.4
Vital Signs:
Vital Signs
Temp Pulse Resp BP Pulse Ox
98.3 F 100 16 121/59 97
01/17/24 07:30 01/17/24 07:19 01/17/24 07:19 01/17/24 06:00 01/17/24 07:19
I&O
01/16/24 01/17/24 01/18/24
06:59 06:59 06:59
Intake Total 605 / 605 665 / 665
Output Total 325 / 325 617 / 617
Balance 280 / 280 48 / 48
--- NOTE | 2024-01-17 09:34 | W.PN.PUL3 ---
Today's Communication / Plan
-
Antibiotics per ID
Wean supplemental O2 flow rate; check walking pulse oximetry prior to discharge
Pain control
Monitor for pleural fluid re-accumulation
Encourage deep breaths, incentive spirometry, mucus clearing devices
Outpatient pulmonary follow-up -she has a modeling analyst as well as an ID doctor in [place], [place], and I advised her to follow-up with those specialists once she is discharged.
Pulmonary service will continue to briefly follow along
Assessment
-
53-year-old female with past medical history of recurrent diverticulitis, pulmonary aspergillosis, hyperlipidemia, anxiety/depression, and GERD who presents with abdominal pain. She apparently was recently treated for diverticulitis in October 2023
with Augmentin at [facility] in [place] where she resides. She also reported that she was treated this month for ongoing fungal lung infection with Aspergillus and also given additional antibiotics but unknown what names of these
medications are. She developed a fever about 5 days ago and continues to be on Augmentin for last 3 days. She was visiting her mother in [place] prior to arrival when the pain in her left lower quadrant became severe so she came here to the ""hospital for further care. She was afebrile in the ER to 98.6 �F, 79 pulse rate, breathing at 16 breaths/min, normotensive at 133/77 and saturating 100% on room air. Labs showed leukocytosis to 21.2, mild anemia to 11.5, mild hyponatremia to 134,
mild hyperkalemia to 5.6, and negative lipase of <10. CT A/P on admission showed severe sigmoid diverticulitis with large pericolonic abscess. She was given pain medications in the ER + Levaquin + IV fluids with NS x1L, and admitted to the
hospitalist service with general surgery consulted and antibiotics were started with Zosyn. She underwent IR CT-guided drainage on 12/24 with 170 cc of pale green purulent material seen - this later grew E. coli and group F Streptococcus. Patient
continues to be managed on the floor and was having issues with constipation. Repeat CT A/P performed on 01/02 showing decrease size in the abscess with pigtail drainage catheter seen in place, with massively distended right colon including the
cecum with stool distention and continued suspected distal descending colon/sigmoid diverticulitis. Given patient's worsening pain with distention and no flatus or BM in about 4 days, patient underwent exploratory laparotomy with splenic flexure
takedown, creation of end colostomy and omentectomy on 01/03/2024, and transferred to the ICU postoperatively. There was 150 cc of EBL and no immediate complications. Patient was stabilized and sent to the floor and pulmonary was reconsulted
01/12/2024 with ongoing hypoxemia.
Impression:
#Sigmoid diverticulitis s/p exploratory laparotomy with splenic flexure takedown, end colostomy creation and omentectomy � OR date: 01/12/2024
#Sigmoid diverticulitis c/b large pericolonic abscess s/p IR CT-guided drainage on 12/24 with purulent fluid growing E. coli + group F Streptococcus
#Constipation
#Leukocytosis
#Chronic anemia (unknown baseline but she has been between 8.5�11.5g/dL since admission)
#Lower lobe pulmonary bronchiectasis � likely due to her history of chronic pulmonary aspergillosis diagnosed in fall 2022
#History of pulmonary aspergillosis on voriconazole
Plan:
Respiratory status improved, although still on supplemental oxygen likely multifactorial from patient's inability to take deep breaths, basilar atelectasis, effusion, etc.
Supplemental oxygen as needed-currently on 4 L/min - she likes this O2 delivery as compared to high flow --> wean down O2 flow rate as tolerated
Aspiration precautions
Incentive spirometry
Acapella
Mucus clearing devices
DuoNebs TID + budesonide BID
Singulair continues
Patient takes Breo as an outpatient
Chest x-ray 01/13/2024-moderate left pleural effusion which is stable and left lower lobe infiltrate concerning for pneumonia also stable
Chest ultrasound 01/11/2024-small to moderate pleural effusion, thoracentesis canceled-not enough fluid for evacuation
Follow radiographically-monitor bilateral pleural effusions
Cultures reviewed
Continue antibiotics - pt was on Zosyn (started 12/24/2023) and then changed to Meropenem on 01/13, and as of 01/15 she is back on Zosyn
Defer ABx to Infectious disease-correspondence reviewed
Left upper quadrant collection-IR drainage 01/14/2024
Continue voriconazole for her Hx of pulmonary aspergillosis
Surgery following-correspondence reviewed
CT abdomen 01/12/2024-fluid collection left upper quadrant contains anterior air-fluid level compatible with abscess increased compared to 01/08/2024, irregular fluid collection within left pelvis and superimposed infection of this collection cannot be
excluded, pigtail catheter in posterior pelvis no evidence of collection in this area, bilateral pleural effusions left greater than right most likely atelectasis
Nasogastric tube per surgery
She is on a low residue diet and seems to be tolerating it well
Intermittent CT abdomen to follow-up on collections
Neurology following-correspondence reviewed
Restless legs still an issue
Rotigotine patch now off
DVT prophylaxis-on Lovenox
GI prophylaxis-on Protonix (she takes pantoprazole at home)
Nutrition per surgery
PT/OT --> rec'd skilled rehab upon discharge
Reviewed with nursing as well as respiratory therapy
Outpatient pulmonary follow-up -she has a modeling analyst as well as an ID doctor in [place], [place], and I advised her to follow-up with those specialists once she is discharged.
Pulmonary service will continue to briefly follow along.
Total time spent today was 35 minutes for this encounter. Time includes reviewing laboratory test/imaging results, reviewing pertinent medical records, obtaining and reviewing medical history, performing an appropriate exam, ordering medications,
tests and procedures. Time also includes documentation of this encounter, coordinating patient care and communicating with other healthcare professionals. Total time does not include separately billed tests performed on this date of service.
Subjective Data
-
Date of Service:
Date of Service: January 17, 2024
Chief Complaint: Pulmonary Follow Up and Dyspnea Follow Up
Subjective:
Patient seen and evaluated today at bedside. Saturating 95% on 4 L/min nasal cannula. She is having more abdominal pain today which is limiting her ability to ambulate. She is being given pain medications to treat this. Besides that she denies
shortness of breath, headache, chest pain, fevers or chills.
Review of Systems
General: Other (Negative unless mentioned above)
Objective Data
Data Reviewed
Vital Signs / I&O / Oxygen:
Vital Signs
Temp Pulse Resp BP Pulse Ox
98.3 F 100 16 121/59 97
01/17/24 07:30 01/17/24 07:19 01/17/24 07:19 01/17/24 06:00 01/17/24 07:19
Intake and Output
01/16/24 01/17/24 01/18/24
06:59 06:59 06:59
Intake Total 605 / 605 665 / 665
Output Total 325 / 325 617 / 617
Balance 280 / 280 48 / 48
SaO2 97
Nasal Cannula flow liters per 6
minute
Physical Exam
General: Respiratory Distress (n) and Chills (negative)
HEENT: Normocephalic, Anicteric and Moist Mucous Membranes
Cardiovascular: S1-S2 and Peripheral Edema (+2 lower extremity pitting edema bilaterally)
Respiratory: Wheeze (n), Crackles (Bilaterally), Rhonchi (n), Non-Labored Respirations, Accessory Resp Muscle Use (n) and Stridor (n)
GI: Soft, Distended and Tender
Neurology: AO x 3 and Tremors (n)
Skin: Warm, Dry, Cyanosis (n) and Jaundice (n)
Labs/Micro/Reports
Lab Data
01/17/24 04:14
01/17/24 04:14
Microbiology
01/13/24 20:22 Blood/Venous Blood Culture - Preliminary
No Growth in 72 hours- Final report to follow
01/13/24 18:56 Blood/Venous Blood Culture - Preliminary
No Growth in 72 hours- Final report to follow
01/15/24 10:08 Sputum Respiratory Culture - Final
01/15/24 10:08 Sputum Gram Stain - Final
01/13/24 13:00 Abscess Wound Culture - Final
Enterococcus raffinosus
Escherichia coli
01/13/24 13:00 Abscess Gram Stain - Final
[2024-01-17] MEDS: PROZAC 20 MG PO (09:38)
[2024-01-17] MEDS: SYMMETREL 100 MG PO ×2 (09:38→19:08)
[2024-01-17] MEDS: NON-FORMULARY ITEM 1 UNIT PO (09:38)
[2024-01-17] MEDS: VITAMIN D3 (cholecalciferol) 25 MCG PO (09:38)
[2024-01-17] MEDS: TYLENOL 1000 MG PO (09:45)
--- NOTE | 2024-01-17 10:43 | W.PN.ID1 ---
Date of Service
Date of Service: January 17, 2024
Today's Communication
Continue Zosyn and voriconazole.
Assessment / Plan
Diverticular abscess status post IR drainage
S/p exploratory lap, colostomy (01/03/2024)
Leukocytosis - improving
LUQ collection
Hx Pulmonary aspergillosis; on Vfend as outpatient.
Recurrent diverticulitis
Anxiety/depression
Hx steroid-induced psychosis
GERD
Asthma
Recommendations:
left upper quadrant abscess; s/p IR drainage 01/13/2024. Cultures E. coli, Enterococcus raffinosus.
Leukocytosis improving with source control.
Continue Zosyn.
Continue to monitor white count and temperature curve.
Continue with voriconazole (suspect for ABPA)
����������������������������������������������������������
Chief Complaint
-: Leukocytosis and Other (Diverticulitis; diverticular abscess)
Subjective / Review of Systems
C/o post-prandial abd bloating.
Vital Signs / Physical Exam
Vital Signs
Vital Signs
Temp Pulse Resp BP Pulse Ox
98.3 F 77 11 123/64 99
01/17/24 07:30 01/17/24 08:00 01/17/24 08:00 01/17/24 08:00 01/17/24 08:00
Physical Exam
Constitutional: No Acute Distress
Gastrointestinal: Soft, Non Tender, Non Distended and Normal Bowel Sounds
Neurological: AO x 3
Objective Data
Lab Data
Lab Results
01/17/24 04:14
01/17/24 04:14
PT 15.3 Sec (11.4-14.6) H 01/06/24 15:22
INR 1.21 01/06/24 15:22
APTT 35.6 Sec (23.4-35.0) H 01/06/24 15:22
Estimated Creat Clear > 125 ml/min 01/17/24 04:14
Lactic Acid Cancelled 01/04/24 09:00
Total Bilirubin 0.7 mg/dl (0.2-1.3) 01/16/24 05:42
AST 37 U/L (14-36) H 01/16/24 05:42
ALT 12 U/L (0-35) 01/16/24 05:42
Alkaline Phosphatase 105 U/L (38-126) 01/16/24 05:42
Most recent labs reviewed.
Micro Results:
01/13/24 20:22 Blood Culture - Preliminary
Blood/Venous No Growth in 72 hours- Final report to follow
01/13/24 18:56 Blood Culture - Preliminary
Blood/Venous No Growth in 72 hours- Final report to follow
01/15/24 10:08 Respiratory Culture - Final
Sputum Gram Stain - Final
01/13/24 13:00 Wound Culture - Final
Abscess Enterococcus raffinosus
Escherichia coli
Gram Stain - Final
01/09/24 14:28 Nasal Screen MRSA (PCR) - Final
Nose MRSA not detected - performed by PCR methodology.
12/26/23 14:43 Blood Culture - Final
Blood/Venous No Growth - Final Report
12/26/23 12:59 Blood Culture - Final
Blood/Venous No Growth - Final Report
12/25/23 17:30 Wound Culture - Final
Abscess Escherichia coli
Escherichia coli#2
Streptococcus species
Group F Streptococcus
Gram Stain - Final
Wound/abscess/other Cult Final 12/28/23-820
Many 1st strain Escherichia coli
Few 2nd strain Escherichia coli
Many Streptococcus species of two morphotypes
Moderate Group F Streptococcus*
1. Escherichia coli
M.I.C. RX
--------- ---
Amoxicillin/Potas. Clavulanate 16/8 I
Ampicillin >16 R
Ampicillin/Sulbactam >16/8 R
Cefazolin >16 R
Cefepime <=2 S
Ceftazidime <=1 S
Ceftriaxone <=1 S
Ertapenem <=0.5 S
Ciprofloxacin <=0.25 S
Gentamicin >8 R
Levofloxacin <=0.5 S
Meropenem <=1 S
Piperacillin/Tazobactam <=16 S
Tobramycin 8 I
Trimethoprim/Sulfamethoxazole >2/38 R
2. Escherichia coli#2
M.I.C. RX
--------- ---
Amoxicillin/Potas. Clavulanate <=8/4 S
Ampicillin >16 R
Ampicillin/Sulbactam >16/8 R
Cefazolin 16 R
Cefepime <=2 S
Ceftazidime <=1 S
Ceftriaxone <=1 S
Ertapenem <=0.5 S
Ciprofloxacin <=0.25 S
Gentamicin <=4 S
Levofloxacin <=0.5 S
Meropenem <=1 S
Piperacillin/Tazobactam <=16 S
Tobramycin <=4 S
Trimethoprim/Sulfamethoxazole >2/38 R
Imaging:
01/12/2024 CT abdomen/pelvis with contrast: There is a focal predominantly fluid collection in the left upper quadrant, which contains an anterior air-fluid level, compatible with an abscess. This has increased compared to examination of January 07,
2023. Of note, this collection is along the anterior margin of the spleen, without a well-defined plane between the collection and the spleen. There is also an irregular fluid collection within the left pelvis as described, and superimposed
infection of this collection cannot be excluded. There is a pigtail catheter in the left posterior pelvis, entering to the left gluteal region, with no evidence of a collection adjacent to this catheter. Subcutaneous edema, greater in both flanks.
Bilateral pleural effusions, left greater than right. Parenchymal opacity within both lower lobes, greater on the left compared to the right. This is most likely atelectasis, although underlying pneumonia difficult to completely exclude
radiographically.
01/03/2024 CT abdomen/pelvis: Markedly decreased posterior true pelvis abscess in comparison to prior pre-op chest drainage study with pigtail drainage catheter seen in the soft tissues of the left posterior true pelvis. Massively distended right
colon including cecum (cecum measuring up to 12 cm) with marked maximal colonic stool as well as gaseous distention of transverse and proximal descending colon, moderate stool with distention of the distal descending and sigmoid colon, limited in
evaluation without oral contrast opacification. Thickening Of the wall of the distal descending and proximal sigmoid colon which could represent colitis or diverticulitis. Partially obstructing distal colonic mass with inflammation cannot be
excluded. No free air. Please see full dictation for additional detail.
[2024-01-17] MEDS: VFEND 200 MG PO ×2 (11:34→20:15)
[2024-01-17] MEDS: FOLVITE 50.2000000000000028 MG IV (11:35)
[2024-01-17] MEDS: DILAUDID 0.5 MG IV ×4 (12:30→23:57)
--- NOTE | 2024-01-17 13:26 | W.PN.GS2 ---
Addendum entered and electronically signed by Deion Roman MD 01/17/24 15:07:
I saw and examined the patient.
The RESIDENTIAL BUILDER's note was reviewed and I agree with the note.
Comment:
Still having nausea, ostomy output decreased but still functioning, tolerating low residue diet
AFVSS, ABD S/ND/appropriately tender, ostomy pink, incisions CDI
WBC 22.0 from 23.8, Hb stable
�Continue low residue
� Continue IV antibiotics, appreciate ID
� Appreciate WOCN
� Continue drains to bulb suction
�Appreciate hospitalist
Original Note:
Today's Communication / Plan
-
Continue LRD
ABX as per ID
Continue drains
Assessment / Plan
-
Assessment: 53 yo female with recent aspergillus pneumonia on home O2 and on recent steroids presenting with complicated diverticulitis with large pelvic abscess, failed initial nonoperative management now status post Garcia's procedure.
12/25/2023 s/p IR drainage of abscess cx with 2 strep species and 2 species of e.coli noted
01/03/2024 s/p exploratory laparotomy with takedown of splenic flexure, creation end colostomy with omentectomy
01/13/2024 s/p IR drain post op perisplenic fluid collection 01/14/24 cx with enterococcus/e. coli.
Clinically improving
Off TPN since 01/12, tolerating diet thus far but some nausea. +Stool/gas in ostomy output but low outputs
AFVSS
Leukocytosis improving, h/h stable
Plan: Low residue diet and encourage PO intake/supplements; okay for family to bring in food/supplements from home. High risk for ileus, follow PO tolerance/ostomy outputs closely.
Pain control: Tylenol, Oxycodone, IV Dilaudid PRN
Continue IV abx per ID recs
Ostomy teaching when tolerating
Continue drains x3 to bulb suction (will change bulb on initial IR drain, as not holding suction. Flush IR drains x2 daily
Daily dressing changes to midline incision, dry gauze packing to open area in middle of wound
DVT: SCDs as tolerated. Lovenox sq
GI: IV PPI
Subjective Data
-
Date of Service: January 17, 2024
Patient seen and examined at bedside with Dr. Roman. Denies vomiting but has had intermittent mild nausea. Poor appetite. Pain improving.
Objective Data
-
Intake and Output
01/16/24 01/17/24 01/18/24
06:59 06:59 06:59
Intake Total 605 / 605 665 / 665
Output Total 325 / 325 617 / 617
Balance 280 / 280 48 / 48
Intake:
Oral fluids 600 / 600 360 / 360
IV piggybacks 250 / 250
Amount instilled into Drain ( 5 / 5 55 / 55
Total)
Left Lower Sacrum Cole-Olmos 5 / 5
A Placed in IR
Left Upper Abdomen Placed in IR 5 / 5 50 / 50
Output:
Liquid stool amount 50 / 50
Colostomy 50 / 50
Drain Output (Total) 35 / 35 17 / 17
Left Abdomen Cole-Olmos 13 / 13 7 / 7
Left Lower Sacrum Cole-Olmos 7 / 7 2 / 2
A Placed in IR
Left Upper Abdomen Placed in IR 15 / 15 8 / 8
Urine, Voided 240 / 240 600 / 600
Other:
Number of approximated SMALL 1
amounts of urine
Number of approximated MODERATE 1 1
amounts of urine
How many times incontinent 1
MODERATE amount urine
Vital Signs
Temp Pulse Resp BP Pulse Ox
98.3 F 93 27 171/90 95
01/17/24 07:30 01/17/24 12:00 01/17/24 12:00 01/17/24 10:00 01/17/24 12:00
Lab Results
01/17/24 04:14
01/17/24 04:14
Calcium 8.4 mg/dl (8.4-10.2) 01/17/24 04:14
Phosphorus 2.7 mg/dl (2.5-4.5) 01/12/24 03:05
Magnesium 2.2 mg/dl (1.6-2.3) 01/12/24 03:05
Total Bilirubin 0.7 mg/dl (0.2-1.3) 01/16/24 05:42
AST 37 U/L (14-36) H 01/16/24 05:42
ALT 12 U/L (0-35) 01/16/24 05:42
Alkaline Phosphatase 105 U/L (38-126) 01/16/24 05:42
Total Protein 5.1 g/dl (6.3-8.2) L 01/16/24 05:42
Albumin 2.3 g/dl (3.5-5.0) L 01/16/24 05:42
Physical Exam
-
NAD, Ox3
Some dyspnea with conversation
ABD: Soft, obese, mildly tender, left lower quadrant DAKOTA still purulent. Left upper quadrant IR drain with serosanguineous output (DAKOTA bulb on upper IR drain not holding suction). Midline wound repacked no significant purulence noted.
Stoma pink/viable. Stool/gas in bag
--- NOTE | 2024-01-17 16:19 | PTCARENOTE ---
AAOx3, pleasant. C/o pain straight across abdomen right to left radiates around her back- 11/17 up to 01/17. Tried Tylenol this am- then requested a lesser dose of IV Dilaudid- d/w dose reduced to 0.5mg and received with good response. Midline
dressing + 3 DAKOTA dressings all changed out today. LUQ DAKOTA is not engaging- relayed to L Miki- bulb changed out- still not engaged- relayed again- IRAD consult tomorrow. Both IR DAKOTA s flushed as ordered.
BP difficult to obtain on lower extremities +1- +2 edema and upper extremity restrictions - cuff changed out last bp 144/89. SR with freq PVCs intermittent bigeminy. Lungs diminished, weaned to 4L NC maintaining sao2 94%- (failed on 3L 86%)- and
getting up to chair dropped to 87% but recovered within a few minutes of rest. Voiding small amts- encouraged increase water consumptionColostomy emptied 100ml liquid loose brown- emotional support provided. Currently oob in chair -encouraged IS.
[2024-01-17] MEDS: SINGULAIR 10 MG PO (16:59)
[2024-01-17] MEDS: LOVENOX 40 MG SC (16:59)
[2024-01-17] MEDS: MELATONIN 5 MG PO (20:14)
[2024-01-17] MEDS: DEPAKOTE ER (24 HR RELEASE) 250 MG PO (20:15)
[2024-01-17] MEDS: DESYREL 100 MG PO (22:33)
[2024-01-17] MEDS: FLEXERIL 5 MG PO (23:57)
[2024-01-18] VITALS (17 sets, daily range): BP systolic 93–175; BP diastolic 60–118; PULSE 93–95; O2SAT 94–95; BMI 32.7
[2024-01-18] MEDS: DILAUDID 0.5 MG IV ×4 (02:58→19:25)
[2024-01-18] MEDS: ZOSYN 50 IV ×4 (05:50→23:24)
[2024-01-18 05:56] LABS: % Basophils 0.2 % (0-2); % Eosinophils 0.4 % (0-6); % Immature Granulocytes 1.4 % (0-0.5); % Lymphocytes 6.5 % (20.5-51.1); % Monocytes 9.5 % (1.7-9.3); Absolute Eosinophils 0.1 10^3/uL (0-0.7); Absolute Immature Granulocytes 0.3 10^3/uL (0-0.05); Absolute Lymphocytes 1.2 10^3/uL (1.2-3.4); Absolute Monocytes 1.8 10^3/uL (0.1-0.6); Absolute Neutrophils 15.4 10^3/uL (1.4-6.5); Hematocrit 22.7 % (37.0-47.0); Hemoglobin 7.5 g/dL (12.0-16.0); Mean Corpuscular Hgb 29.5 pg (27.0-31.0); Mean Corpuscular Volume 89.4 fL (81.0-99.0); Mean Platelet Volume 8.8 fL (7.4-10.4); Nucleated Red Blood Cells % 0 %; Platelet Count 436 10^3/uL (130-400); Red Blood Cell Count 2.54 10^6/uL (4.20-5.40); Red Cell Dist. Width 16.6 % (11.5-14.5); White Blood Cell Count 18.8 10^3/uL (4.8-10.8)
[2024-01-18 06:17] LABS: ALT (SGPT) < 10 U/L (0-35); AST (SGOT) 26 U/L (14-36); Alkaline Phosphatase 88 U/L (38-126); Blood Urea Nitrogen 10 mg/dl (7-17); Calcium 8.2 mg/dl (8.4-10.2); Carbon Dioxide 38 mmol/L (22-30); Chloride 91 mmol/L (98-107); Estimated Creatinine Clearance > 125 ml/min; Glucose 91 mg/dl (70-99); Phosphorus 3.4 mg/dl (2.5-4.5); Potassium 3.5 mmol/L (3.5-5.1); Sodium 134 mmol/L (135-145); Total Bilirubin 0.5 mg/dl (0.2-1.3); Total Protein 4.5 g/dl (6.3-8.2); Triglycerides 104 mg/dl (10-149); eGFR > 60.00
[2024-01-18] MEDS: ZOFRAN 4 MG IV ×2 (06:17→19:30)
--- NOTE | 2024-01-18 06:25 | PTCARENOTE ---
Patient assisted back to bed with two person pivot after dinner last night. Sp02 decreases to 87-88% with activity and able to recover with rest. c/o more pain overnight and feeling 'bloated'. Requesting PRN IV Dilaudid for pain and zofran for
nausea; refer to MAR. 5L midflow in place, pt pursed lip breathing intermittently. Tele showing NSR with multiple PVCs and occasional bigeminy. Abd with hypoactive BS. Colostomy has decreased liquid brown output; about 10mL. Pt voiding via bedpan
adequate amounts. BPs taken on RLE d/t upper extremity restrictions. RUE PICC line dressing intact, lumens patent, +blood return. Wound care done to abd last night. Soothing music provided for sleep. Call richard within reach. Pt calls appropriately.
--- NOTE | 2024-01-18 07:23 | W.PN.NEURO.1 ---
Today's Communication / Plan
-
-Continue Amantadine 100 mg BID
-Continue Ingrezza 40 mg daily, increase to 80 mg daily on 01/20
-Remain off Rotigotine
Will follow as needed call with questions and concerns
Neuro Assessment/Plan
Assessment
53 year old being cared for diverticulitis with abscess
On seroquel, depakote, fluoexetine, trazodone at home.
Has required blood transfusions here for anemia
Suspecting tardive dyskinesia, history of antipsychotic exposure and then metabolic derangements of acute illness, anemia possibly triggering the issue
No response to dopamine agonists, unlikely restless legs
Has been off Seroquel here
Subjective/Objective
Subjective Data
Date of Service: January 18, 2024
No acute events, seeing mild improvement in movements, has nausea
Objective Data
Vital Signs
Temp Pulse Resp BP Pulse Ox
98.6 F 90 23 156/96 94
01/18/24 03:20 01/18/24 06:00 01/18/24 06:00 01/18/24 06:00 01/18/24 06:00
Lab Results
01/18/24 05:48
01/18/24 05:48
PT 15.3 Sec (11.4-14.6) H 01/06/24 15:22
INR 1.21 01/06/24 15:22
APTT 35.6 Sec (23.4-35.0) H 01/06/24 15:22
Sodium 134 mmol/L (135-145) L 01/18/24 05:48
Potassium 3.5 mmol/L (3.5-5.1) 01/18/24 05:48
BUN 10 mg/dl (7-17) 01/18/24 05:48
Glucose 91 mg/dl (70-99) 01/18/24 05:48
Calcium 8.2 mg/dl (8.4-10.2) L 01/18/24 05:48
Phosphorus 3.4 mg/dl (2.5-4.5) 01/18/24 05:48
Vitamin B12 909 pg/ml (239-931) 01/09/24 04:57
Patient Allergies
No Known Allergies Allergy (Unverified 12/24/23 15:13)
Review of Systems
-
History Source: Patient
All other systems: Reviewed and negative
Constitutional: No Symptoms
EENT: No Symptoms Reported
Cardiac: No Symptoms
Abdomen/GI: Nausea
Genitourinary: No Symptoms
Musculoskeletal: No Symptoms
Skin: No Symptoms
Neuro: See existing Neuro Note
Endocrine: No Symptoms
Hematologic / Lymphatic: No Symptoms
Allergy / Immunology: No Symptoms
Physical Exam
-
General: Well Nourished
Eyes: No Ptosis
HEENT: Normocephalic
Neck: No Bruits Bilaterally
Respiratory: Clear to Auscultation
Cardiac: Regular Rhythm
GI: Normal Bowel Sounds
Skin: Unremarkable
Extremities: No Clubbing
Psych: Negative Confused
Extended Neurological Exam
Mood & Affect: Mood Unremarkable
Attention Span & Concentration: Awake, Alert and Interactive
Memory: Unremarkable
Tremor: Hand Tremor Absent
Involuntary Movement: Other (Improved generalized dyskinesias of trunk, limbs, mouth)
Speech: Quality Unremarkable and Quantity Unremarkable
Cranial Nerve II: Left Eye: Pupillary Reactivity Unremarkable and Pupillary Size Unremarkable
Cranial Nerve II: Right Eye: Pupillary Reactivity Unremarkable and Pupillary Size Unremarkable
Cranial Nerves III, IV, : Extraocular Movement: Extraocular Movement Full in all Directions
Muscle Strength, Overall: Full Throughout
Touch Sensation: Unremarkable
Coordination: Ycyvwn-cyus-wjxoyw Testing Unremarkable
[2024-01-18] MEDS: PULMICORT 0.5 MG INH ×2 (08:00→19:22)
[2024-01-18] MEDS: DUONEB 3 ML INH ×3 (08:00→19:22)
[2024-01-18] MEDS: NON-FORMULARY ITEM 1 UNIT PO (08:23)
[2024-01-18] MEDS: VITAMIN D3 (cholecalciferol) 25 MCG PO (08:24)
[2024-01-18] MEDS: NSS (PRESERVATIVE FREE) 10 ML IV (08:24)
[2024-01-18] MEDS: SYMMETREL 100 MG PO ×2 (08:24→19:25)
[2024-01-18] MEDS: PROZAC 20 MG PO (08:24)
[2024-01-18] MEDS: PROTONIX IV 40 MG IV (08:24)
--- NOTE | 2024-01-18 09:50 | W.PN.PUL.V3 ---
Today's Communication / Plan
-
Wean oxygen
Check chest x-ray
Thoracentesis if pleural fluid has enlarged
Antibiotics
Nutrition
Physical therapy
Assessment
-
53-year-old female with past medical history of recurrent diverticulitis, pulmonary aspergillosis, hyperlipidemia, anxiety/depression, and GERD who presents with abdominal pain. She apparently was recently treated for diverticulitis in October 2023
with Augmentin at [facility] in [place] where she resides. She also reported that she was treated this month for ongoing fungal lung infection with Aspergillus and also given additional antibiotics but unknown what names of these
medications are. She developed a fever about 5 days ago and continues to be on Augmentin for last 3 days. She was visiting her mother in [place] prior to arrival when the pain in her left lower quadrant became severe so she came here to the
hospital for further care. She was afebrile in the ER to 98.6 �F, 79 pulse rate, breathing at 16 breaths/min, normotensive at 133/77 and saturating 100% on room air. Labs showed leukocytosis to 21.2, mild anemia to 11.5, mild hyponatremia to 134,
mild hyperkalemia to 5.6, and negative lipase of <10. CT A/P on admission showed severe sigmoid diverticulitis with large pericolonic abscess. She was given pain medications in the ER + Levaquin + IV fluids with NS x1L, and admitted to the
hospitalist service with general surgery consulted and antibiotics were started with Zosyn. She underwent IR CT-guided drainage on 12/24 with 170 cc of pale green purulent material seen - this later grew E. coli and group F Streptococcus. Patient
continues to be managed on the floor and was having issues with constipation. Repeat CT A/P performed on 01/02 showing decrease size in the abscess with pigtail drainage catheter seen in place, with massively distended right colon including the
cecum with stool distention and continued suspected distal descending colon/sigmoid diverticulitis. Given patient's worsening pain with distention and no flatus or BM in about 4 days, patient underwent exploratory laparotomy with splenic flexure
takedown, creation of end colostomy and omentectomy on 01/03/2024, and transferred to the ICU postoperatively. There was 150 cc of EBL and no immediate complications. Patient was stabilized and sent to the floor and pulmonary was reconsulted
01/12/2024 with ongoing hypoxemia.
Impression:
#Sigmoid diverticulitis s/p exploratory laparotomy with splenic flexure takedown, end colostomy creation and omentectomy � OR date: 01/12/2024
#Sigmoid diverticulitis c/b large pericolonic abscess s/p IR CT-guided drainage on 12/24 with purulent fluid growing E. coli + group F Streptococcus
#Constipation
#Leukocytosis
#Chronic anemia (unknown baseline but she has been between 8.5�11.5g/dL since admission)
#Lower lobe pulmonary bronchiectasis � likely due to her history of chronic pulmonary aspergillosis diagnosed in fall 2022
#History of pulmonary aspergillosis on voriconazole
Plan:
Respiratory status still somewhat tenuous as patient has difficulties taking a deep breath and has pleural effusion and atelectasis
Supplemental oxygen as needed-currently on 4 L/min mid flow-attempt to wean
Aspiration precautions
Incentive spirometry encouraged
Acapella
Mucus clearing devices
DuoNebs TID + budesonide BID
Singulair continues
Patient takes Breo as an outpatient
Chest x-ray 01/13/2024-moderate left pleural effusion which is stable and left lower lobe infiltrate concerning for pneumonia also stable
Chest ultrasound 01/11/2024-small to moderate pleural effusion, thoracentesis canceled-not enough fluid for evacuation
Chest x-ray 01/18/2024-pending
Cultures reviewed
Continue antibiotics - pt was on Zosyn (started 12/24/2023) and then changed to Meropenem on 01/13, and as of 01/15 she is back on Zosyn
Infectious disease following-correspondence reviewed
Left upper quadrant collection-IR drainage 01/14/2024
Continue voriconazole for her history of pulmonary aspergillosis
Surgery following-correspondence reviewed
Patient is scheduled for an interventional radiology drain exchange 01/18/2024
Low residual diet per surgery
CT abdomen 01/12/2024-fluid collection left upper quadrant contains anterior air-fluid level compatible with abscess increased compared to 01/08/2024, irregular fluid collection within left pelvis and superimposed infection of this collection cannot be
excluded, pigtail catheter in posterior pelvis no evidence of collection in this area, bilateral pleural effusions left greater than right most likely atelectasis
Nasogastric tube per surgery
She is on a low residue diet and seems to be tolerating it well
Intermittent CT abdomen to follow-up on collections
Neurology following-correspondence reviewed
Restless legs still an issue-improved
Rotigotine patch now off
Continue amantadine and Ingrezza and remains Rotigotine
DVT prophylaxis-on Lovenox
GI prophylaxis-on Protonix (she takes pantoprazole at home)
Nutrition per surgery
Patient will require skilled rehab upon discharge
Reviewed with nursing as well as respiratory therapy
Outpatient pulmonary follow-up -she has a tentmaker as well as an ID doctor in [place], [place], and I advised her to follow-up with those specialists once she is discharged.
Subjective Data
-
Date of Service:
Date of Service: January 18, 2024
Chief Complaint: Pulmonary Follow Up and Dyspnea Follow Up
Subjective:
Feels better, still on high FiO2, difficulties mobilizing secretions, no complaints of increasing shortness of breath, or increased abdominal pain
Review of Systems
General: Other (Per HPI)
Objective Data
Data Reviewed
Vital Signs / I&O:
Vital Signs
Temp Pulse Resp BP Pulse Ox
98.1 F 87 20 156/96 96
01/18/24 07:30 01/18/24 08:03 01/18/24 08:03 01/18/24 06:00 01/18/24 08:03
Intake and Output
01/17/24 01/18/2424
06:59 06:59 06:59
Intake Total 665 / 665 1190 / 1190
Output Total 617 / 617 1536 / 1536
Balance 48 / 48 -346 / -346
SaO2: 96
Nasal Cannula flow liters per minute: 4.5
Physical Exam
General: Respiratory Distress (n) and Chills (negative)
HEENT: Normocephalic, Anicteric and Moist Mucous Membranes
Cardiovascular: S1-S2 and Peripheral Edema (+2 lower extremity pitting edema bilaterally)
Respiratory: Wheeze (n), Crackles (Bilaterally), Rhonchi (n), Non-Labored Respirations, Accessory Resp Muscle Use (n) and Stridor (n)
GI: Soft, Distended and Tender
Neurology: AO x 3 and Tremors (n)
Skin: Warm, Dry, Cyanosis (n) and Jaundice (n)
Labs/Micro/Reports
Lab Data
01/18/24 05:48
01/18/24 05:48
Microbiology
01/13/24 20:22 Blood/Venous Blood Culture - Preliminary
No Growth in 4 days- Final report to follow
01/13/24 18:56 Blood/Venous Blood Culture - Preliminary
No Growth in 4 days- Final report to follow
01/15/24 10:08 Sputum Respiratory Culture - Final
01/15/24 10:08 Sputum Gram Stain - Final
01/13/24 13:00 Abscess Wound Culture - Final
Enterococcus raffinosus
Escherichia coli
01/13/24 13:00 Abscess Gram Stain - Final
--- NOTE | 2024-01-18 09:53 | W.PN.GS2 ---
Today's Communication / Plan
-
IR drain exchange today.
Assessment / Plan
-
Assessment: 53 yo female with recent aspergillus pneumonia on home O2 and on recent steroids presenting with complicated diverticulitis with large pelvic abscess, failed initial nonoperative management now status post Garcia's procedure.
12/25/2023 s/p IR drainage of abscess cx with 2 strep species and 2 species of e.coli noted
01/03/2024 s/p exploratory laparotomy with takedown of splenic flexure, creation end colostomy with omentectomy
01/13/2024 s/p IR drain post op perisplenic fluid collection 01/14/24 cx with enterococcus/e. coli.
Clinically improving
Off TPN since 01/12, tolerating diet thus far but some nausea. +Stool/gas in ostomy output but low outputs
AFVSS
Leukocytosis improving, h/h stable
Plan: IR drain exchange today.
Low residue diet and encourage PO intake/supplements; okay for family to bring in food/supplements from home.
Pain control: Tylenol, Oxycodone, IV Dilaudid PRN
Continue IV abx per ID recs
Ostomy teaching when tolerating
Continue drains x3 to bulb suction Flush IR drains x2 daily
Daily dressing changes to midline incision, dry gauze packing to open area in middle of wound
DVT: SCDs as tolerated. Lovenox sq
GI: IV PPI
Time Spent
Total Time Spent with Patient (in minutes): 20
Subjective Data
-
Date of Service: January 18, 2024
Interval Events:
No acute events overnight. Slept ok. Pain Controlled. Mild nausea, no vomiting, +bowel function. Tolerating diet.
Objective Data
-
Intake and Output
01/17/24 01/18/24 01/19/24
06:59 06:59 06:59
Intake Total 665 / 665 1190 / 1190
Output Total 617 / 617 1536 / 1536
Balance 48 / 48 -346 / -346
Intake:
Oral fluids 360 / 360 980 / 980
IV piggybacks 250 / 250 200 / 200
Amount instilled into Drain ( 55 / 55
Total)
Left Lower Sacrum Cole-Olmos 5 / 5
A Placed in IR
Left Upper Abdomen Placed in IR 50 / 50 5
Output:
Liquid stool amount
Colostomy
Drain Output (Total)
Left Abdomen Cole-Olmos
Left Lower Sacrum Cole-Olmos /
A Placed in IR
Left Upper Abdomen Placed in IR
Urine, Voided 600 / 600 1500 / 1500
Other:
Number of approximated SMALL 1
amounts of urine
Number of approximated MODERATE 1 1
amounts of urine
How many times incontinent 1
MODERATE amount urine
Vital Signs
Temp Pulse Resp BP Pulse Ox
98.1 F 87 20 156/96 96
01/18/24 07:30 01/18/24 08:03 01/18/24 08:03 01/18/24 06:00 01/18/24 09:50
Lab Results
01/18/24 05:48
01/18/24 05:48
Calcium 8.2 mg/dl (8.4-10.2) L 01/18/24 05:48
Phosphorus 3.4 mg/dl (2.5-4.5) 01/18/24 05:48
Magnesium 2.0 mg/dl (1.6-2.3) 01/18/24 05:48
Total Bilirubin 0.5 mg/dl (0.2-1.3) 01/18/24 05:48
AST 26 U/L (14-36) 01/18/24 05:48
ALT < 10 U/L (0-35) 01/18/24 05:48
Alkaline Phosphatase 88 U/L (38-126) 01/18/24 05:48
Total Protein 4.5 g/dl (6.3-8.2) L 01/18/24 05:48
Albumin 2.0 g/dl (3.5-5.0) L 01/18/24 05:48
Physical Exam
-
GENERAL/NEURO: Awake, Alert, no distress
CHEST: Unlabored breathing on RA
ABDOMEN: Soft, Non-Tender, Non-Distended, ostomy is retracted but pink patent and productive of light brown stool. Left lower quadrant DAKOTA purulent, IR drain not holding suction no output in the bulb, posterior drain serosanguineous.
--- NOTE | 2024-01-18 10:04 | W.PN.HOSP.TC ---
Today's Communication/Plan
-
Chest x-ray
Start on IV Lasix
Continue with antibiotics
Continue with diet per surgery
Continue with PT OT treatment
Assessment / Plan
Assessment / Plan
A/P:
Sigmoid diverticulitis with abscess:
-h/o diverticulosis/diverticulitis
-s/p abscess drainage 12/25/23 by IR. E. coli and Enterococcus Raffinosus on 01/12 wound cultures.
-with findings of massively distended right colon including the cecum on CT scan of the abdomen pelvis on January 03, 2024 the patient was taken to the OR for Exploratory laparotomy, takedown splenic flexure, creation end colostomy, omentectomy
-ID changing IV meropenem back to Zosyn since 01/15.
-IV Dilaudid PRN (was on dilaudid [employer] prior)
-repeated CT scan of the abdomen per surgery--> results as above and reviewed.
-Status post IR drain on 01/12.
-Follow-up repeat blood cultures for recurrent fevers since 01/12 but so far no growth but initial wound cultures growing E. coli and Enterococcus Raffinosus
-Low residue diet per surgery
Leukocytosis:
Now started to trend down.
Continue current antibiotics
Continue to trend
Acute hypoxic respiratory insufficiency:
Continue high flow oxygen for increased PEEP--> now down to 5 L of oxygen.
Continue to titrate oxygen as able.
Chest x-ray on 01/12 persistent moderate left pleural effusion-->Taken for possible thoracentesis on 01/10 but not enough fluid to be tapped. Discussed again with IR on 01/14 and not enough fluid.
Pulmonary following
Weight gain of 27 pounds noted over this admission. Suspect bilateral pleural effusions clinically. Still on 5 L of oxygen. She would benefit diuresis. Obtain a chest x-ray and start on IV Lasix.
Dyskinetic movements/Restless Legs:
-Psychiatry and neurology have decided to start her on Ingrezza. Seems to be working well.
-Also started on amantadine.
-Stopped Requip and Neupro patch
-Started melatonin
-Remains on trazodone 100 mg as needed, Flexeril as needed, Dilaudid as needed, and Depakote and psych discussed with outpatient psychiatrist who felt she did not have manic episode but patient decided to continue Depakote. Depakote doses have been
decreased with the possibility of discontinuing altogether in the near future.
-Seroquel stopped as Vfend increases serum concentration of Seroquel.
-Avoid antidopaminergic agents as much as possible
Thrombosis left upper extremity:
Superficial thrombosis in the left basilic vein (no DVT)
On Lovenox 40 mg daily for prevention DVT and will be enough for above plus local care.
Acute blood loss anemia:
-Aim to keep H&H more than 7. Follow blood work.
-s/p 3U pRBCs
Other problems:
h/o pulmonary Aspergillus: since Apr 2023. cont Vfend.
Hyperkalemia, resolved
HLD
GERD: cont PPI
Anxiety/depression: Continue Trazodone PRN/Prozac/Depakote. Seroquel stopped by psych.
FULL/Lovenox
Dispo-keep in IMU today and see her response to diuresis and oxygenation.
Total time spent on today's encounter was 52 minutes which included time spent in counseling the patient/family regarding diagnosis and treatment plan as listed above, goals of care, and symptom management. Case was discussed with nursing staff,
specialists, and care coordinators/case management. All labs and imaging personally reviewed by me. Remainder the time spent in detailed review of previous records, lab data, imaging, and other medical provider documentation.
Anticipated Discharge: > 48 hours
Subjective/Interval History
-
Date of Service: January 18, 2024
Patient now on a solid diet which she is tolerating. No nausea or vomiting.
She does feel bloated. She is normally on oxygen as needed basis at home from her pulmonary fungal infection standpoint.
She does not feel short of breath at rest. But she is needing higher FiO2 in the hospital.
Objective Data
-
Labs:
Laboratory Results
01/18/24
05:48
WBC 18.8 H
Hgb 7.5 L
Hct 22.7 L
Plt Count 436 H
Sodium 134 L
Potassium 3.5
Chloride 91 L
Carbon Dioxide 38 H
BUN 10
Creatinine 0.3 L
Glucose 91
Calcium 8.2 L
Total Bilirubin 0.5
AST 26
ALT < 10
Alkaline Phosphatase 88
Vital Signs:
Vital Signs
Temp Pulse Resp BP Pulse Ox
98.1 F 87 20 156/96 96
01/18/24 07:30 01/18/24 08:03 01/18/24 08:03 01/18/24 06:00 01/18/24 09:50
I&O
01/17/24 01/18/24 01/19/24
06:59 06:59 06:59
Intake Total 665 / 665 1190 / 1190
Output Total 617 / 617 1536 / 1536
Balance 48 / 48 -346 / -346
Review of Systems
-
Constitutional: Denies Fever
EENT: Denies Sore Throat
Respiratory: Denies Cough
Cardiac: Denies Chest Pain
Neuro: Denies Dizzy
Physical Exam
-
General: No Apparent Distress
HEENT: Moist Mucous Membranes
Respiratory: Non Labored Respirations and Decreased Breath Sounds (Both the bases); Negative Wheezes or Accessory Resp Muscle Use
Cardiac: Regular Rhythm, S1/S2 and Tachycardic
GI: Soft and Normal Bowel Sounds
Musculoskeletal: Edema, Left Upper Extrem and Edema, Right Lower Extrem
Neuro: AO x 3
Data Reviewed
-
Labs: Labs Reviewed by me
[2024-01-18] MEDS: VFEND 200 MG PO ×2 (10:12→21:44)
[2024-01-18] MEDS: FOLVITE 50.2000000000000028 MG IV (10:12)
[2024-01-18] MEDS: FLEXERIL 5 MG PO ×2 (10:13→18:46)
[2024-01-18 10:52] LABS: NT-proBNP 12800 pg/ml
--- NOTE | 2024-01-18 11:28 | W.PN.ID1 ---
Date of Service
Date of Service: January 18, 2024
Today's Communication
Continue Zosyn (d#26 abx)
Assessment / Plan
Diverticular abscess status post IR drainage
S/p exploratory lap, colostomy (01/03/2024)
Leukocytosis - improving
LUQ collection
Hx Pulmonary aspergillosis; on Vfend as outpatient.
Recurrent diverticulitis
Anxiety/depression
Hx steroid-induced psychosis
GERD
Asthma
Recommendations:
Left upper quadrant abscess; s/p IR drainage 01/13/2024. Cultures E. coli, Enterococcus raffinosus.
Leukocytosis improving with source control.
Continue Zosyn (d#26 abx).
Continue to monitor white count and temperature curve.
Continue with voriconazole (suspect for ABPA)
����������������������������������������������������������
Chief Complaint
-: Leukocytosis and Other (Diverticulitis; diverticular abscess)
Subjective / Review of Systems
Review of Systems: No Fever and No Chills
Vital Signs / Physical Exam
Vital Signs
Vital Signs
Temp Pulse Resp BP Pulse Ox
98.1 F 92 24 116/92 96
01/18/24 07:30 01/18/24 10:00 01/18/24 10:00 01/18/24 09:12 01/18/24 09:50
Physical Exam
Constitutional: No Acute Distress, Comfortable and Non-toxic
Eyes: Sclera Anicteric
Cardiovascular: S1/S2; Negative S3/S4
Pulmonary: Clear; Negative Wheezes, Rales or Rhonchi
Gastrointestinal: Soft, Non Tender, Non Distended and Normal Bowel Sounds
Extremities: Negative Edema, Cyanosis or Erythema
Skin: Negative Rash or Jaundice
Neurological: Awake, Alert and AO x 3; Negative Meningeal Signs
Psychological: Calm
Objective Data
Lab Data
Lab Results
01/18/24 05:48
01/18/24 05:48
PT 15.3 Sec (11.4-14.6) H 01/06/24 15:22
INR 1.21 01/06/24 15:22
APTT 35.6 Sec (23.4-35.0) H 01/06/24 15:22
Estimated Creat Clear > 125 ml/min 01/18/24 05:48
Lactic Acid Cancelled 01/04/24 09:00
Total Bilirubin 0.5 mg/dl (0.2-1.3) 01/18/24 05:48
AST 26 U/L (14-36) 01/18/24 05:48
ALT < 10 U/L (0-35) 01/18/24 05:48
Alkaline Phosphatase 88 U/L (38-126) 01/18/24 05:48
Most recent labs reviewed.
Micro Results:
01/13/24 20:22 Blood Culture - Preliminary
Blood/Venous No Growth in 4 days- Final report to follow
01/13/24 18:56 Blood Culture - Preliminary
Blood/Venous No Growth in 4 days- Final report to follow
01/15/24 10:08 Respiratory Culture - Final
Sputum Gram Stain - Final
01/13/24 13:00 Wound Culture - Final
Abscess Enterococcus raffinosus
Escherichia coli
Gram Stain - Final
01/09/24 14:28 Nasal Screen MRSA (PCR) - Final
Nose MRSA not detected - performed by PCR methodology.
12/26/23 14:43 Blood Culture - Final
Blood/Venous No Growth - Final Report
12/26/23 12:59 Blood Culture - Final
Blood/Venous No Growth - Final Report
12/25/23 17:30 Wound Culture - Final
Abscess Escherichia coli
Escherichia coli#2
Streptococcus species
Group F Streptococcus
Gram Stain - Final
Wound/abscess/other Cult Final 12/28/23-820
Many 1st strain Escherichia coli
Few 2nd strain Escherichia coli
Many Streptococcus species of two morphotypes
Moderate Group F Streptococcus*
1. Escherichia coli
M.I.C. RX
--------- ---
Amoxicillin/Potas. Clavulanate 16/8 I
Ampicillin >16 R
Ampicillin/Sulbactam >16/8 R
Cefazolin >16 R
Cefepime <=2 S
Ceftazidime <=1 S
Ceftriaxone <=1 S
Ertapenem <=0.5 S
Ciprofloxacin <=0.25 S
Gentamicin >8 R
Levofloxacin <=0.5 S
Meropenem <=1 S
Piperacillin/Tazobactam <=16 S
Tobramycin 8 I
Trimethoprim/Sulfamethoxazole >2/38 R
2. Escherichia coli#2
M.I.C. RX
--------- ---
Amoxicillin/Potas. Clavulanate <=8/4 S
Ampicillin >16 R
Ampicillin/Sulbactam >16/8 R
Cefazolin 16 R
Cefepime <=2 S
Ceftazidime <=1 S
Ceftriaxone <=1 S
Ertapenem <=0.5 S
Ciprofloxacin <=0.25 S
Gentamicin <=4 S
Levofloxacin <=0.5 S
Meropenem <=1 S
Piperacillin/Tazobactam <=16 S
Tobramycin <=4 S
Trimethoprim/Sulfamethoxazole >2/38 R
Imaging:
01/12/2024 CT abdomen/pelvis with contrast: There is a focal predominantly fluid collection in the left upper quadrant, which contains an anterior air-fluid level, compatible with an abscess. This has increased compared to examination of January 07,
2023. Of note, this collection is along the anterior margin of the spleen, without a well-defined plane between the collection and the spleen. There is also an irregular fluid collection within the left pelvis as described, and superimposed
infection of this collection cannot be excluded. There is a pigtail catheter in the left posterior pelvis, entering to the left gluteal region, with no evidence of a collection adjacent to this catheter. Subcutaneous edema, greater in both flanks.
Bilateral pleural effusions, left greater than right. Parenchymal opacity within both lower lobes, greater on the left compared to the right. This is most likely atelectasis, although underlying pneumonia difficult to completely exclude
radiographically.
01/03/2024 CT abdomen/pelvis: Markedly decreased posterior true pelvis abscess in comparison to prior pre-op chest drainage study with pigtail drainage catheter seen in the soft tissues of the left posterior true pelvis. Massively distended right
colon including cecum (cecum measuring up to 12 cm) with marked maximal colonic stool as well as gaseous distention of transverse and proximal descending colon, moderate stool with distention of the distal descending and sigmoid colon, limited in
evaluation without oral contrast opacification. Thickening Of the wall of the distal descending and proximal sigmoid colon which could represent colitis or diverticulitis. Partially obstructing distal colonic mass with inflammation cannot be
excluded. No free air. Please see full dictation for additional detail.
--- NOTE | 2024-01-18 12:26 | PTCARENOTE ---
Patient off unit in IR.
--- NOTE | 2024-01-18 13:22 | PTCARENOTE ---
Patient returned from IR.
[2024-01-18] MEDS: LASIX 40 MG IV (13:35)
--- NOTE | 2024-01-18 15:27 | W.PN.UPDATE ---
Update Note
Progress Note Update
Pt seen, chart reviewed. Pt sitting up in chair, alert, with improved affect. Dyskinetic movements have lessened, with Neurology prescribing Amantadine and Ingrezza. Mood is described as 'up and down/all over.' Pt states she is doing okay,
denies significant depression. Pt plans to stay with her mother after rehab facility. Depakote was tapered on 01/12 due to potential drug interaction with antibiotic and unclear benefit or necessity.
Imp: Unspecified depressive d/o, in setting of long hx of mood d/o, appears stable
Dyskinesia of unclear etiology, possibly related to hx of exposure to antipsychotic medications
Rec: Continue current psychotropic medications
will follow
[2024-01-18] MEDS: TYLENOL 1000 MG PO (16:09)
--- NOTE | 2024-01-18 16:21 | CM ---
Patient with Dx Sigmoid diverticulitis with abscess, s/p Exploratory laparotomy, creation end colostomy, post op perisplenic fluid collection. O2 3L. Receiving IV Abx, IV Lasix. DAKOTA drains. Seen by Psych. PT/OT; requires assist of 2, rec skilled
rehab.
Spoke with Kathy, patient's sister in law; she would like to meet tomorrow with CM to discuss SNF preferences, when she and Abel DUNN are here for a teaching visit with the ostomy nurse.
Plan meet with patient, brother, sister in law tomorrow re; SNF options.
[2024-01-18] MEDS: LOVENOX 40 MG SC (17:19)
[2024-01-18] MEDS: SINGULAIR 10 MG PO (17:19)
--- NOTE | 2024-01-18 17:27 | PTCARENOTE ---
Patient with minimal output via colostomy: 10ml documented overnight and minimal as of this time today. Dr Slaazar made aware via tiger text.
--- NOTE | 2024-01-18 20:28 | PTCARENOTE ---
Received pt from [facility]. Pt OOB in the chair. Pt is AAOx3, forgetful @ times, anxious, restless. NSR/sinus tach w/ PVCs on the monitor. On 4L midflow O2 sat 98%, lungs coarse/diminished. Pt c/o nausea (PRN Zofran given - see MAR). Pt assisted
x1 to the BSC. Jpx3 drains intact. Left colostomy intact. SCDs in place. Pt c/o 7/10 pain (PRN Dilaudid given - see MAR). Hygiene provided. Pt is laying comfortable in bed with call richard in reach.
[2024-01-18] MEDS: MELATONIN 5 MG PO (21:44)
[2024-01-18] MEDS: DEPAKOTE ER (24 HR RELEASE) 250 MG PO (21:44)
[2024-01-19] VITALS: BP 101/57
[2024-01-19 02:42] VITALS: BMI 32.8
[2024-01-19 04:08] VITALS: BP 122/75
[2024-01-19] MEDS: FLEXERIL 5 MG PO ×2 (04:24→16:39)
[2024-01-19] MEDS: TYLENOL 1000 MG PO ×2 (04:25→20:05)
[2024-01-19 04:40] LABS: Hematocrit 23.4 % (37.0-47.0); Hemoglobin 7.7 g/dL (12.0-16.0); Mean Corp Hgb Conc. 32.9 g/dL (33.0-37.0); Mean Corpuscular Hgb 29.5 pg (27.0-31.0); Mean Corpuscular Volume 89.7 fL (81.0-99.0); Mean Platelet Volume 8.8 fL (7.4-10.4); Platelet Count 471 10^3/uL (130-400); Red Blood Cell Count 2.61 10^6/uL (4.20-5.40); Red Cell Dist. Width 16.8 % (11.5-14.5); White Blood Cell Count 21.5 10^3/uL (4.8-10.8)
[2024-01-19 05:03] LABS: Blood Urea Nitrogen 11 mg/dl (7-17); Chloride 89 mmol/L (98-107); Estimated Creatinine Clearance > 125 ml/min; Glucose 105 mg/dl (70-99); Potassium 3.5 mmol/L (3.5-5.1); Sodium 136 mmol/L (135-145); eGFR > 60.00
[2024-01-19] MEDS: ZOSYN 50 IV ×4 (05:03→23:06)
[2024-01-19 05:13] LABS: Carbon Dioxide 40 mmol/L (22-30)
[2024-01-19] MEDS: DUONEB 3 ML INH ×3 (07:26→19:45)
[2024-01-19] MEDS: PULMICORT 0.5 MG INH ×2 (07:27→19:45)
[2024-01-19 08:11] VITALS: BP 162/92
[2024-01-19] MEDS: PROTONIX IV 40 MG IV (08:12)
[2024-01-19] MEDS: LASIX 40 MG IV ×2 (08:12→19:58)
[2024-01-19] MEDS: VITAMIN D3 (cholecalciferol) 25 MCG PO (08:13)
[2024-01-19] MEDS: SYMMETREL 100 MG PO ×2 (08:13→19:58)
[2024-01-19] MEDS: PROZAC 20 MG PO (08:13)
[2024-01-19] MEDS: NON-FORMULARY ITEM 1 UNIT PO (08:13)
[2024-01-19] MEDS: NSS (PRESERVATIVE FREE) 10 ML IV (08:13)
--- NOTE | 2024-01-19 08:49 | W.PN.HOSP.TC ---
Today's Communication/Plan
-
increase dose of Lasix
Obtain the EKG, echo and chest x-ray
Follow weights closely
Wean oxygen as able.
antibiotics per ID
Assessment / Plan
Assessment / Plan
A/P:
Sigmoid diverticulitis with abscess:
-h/o diverticulosis/diverticulitis
-s/p abscess drainage 12/25/23 by IR. E. coli and Enterococcus Raffinosus on 01/12 wound cultures.
-with findings of massively distended right colon including the cecum on CT scan of the abdomen pelvis on January 03, 2024 the patient was taken to the OR for Exploratory laparotomy, takedown splenic flexure, creation end colostomy, omentectomy
-ID changing IV meropenem back to Zosyn since 01/15.
-IV Dilaudid PRN (was on dilaudid [employer] prior)
-repeated CT scan of the abdomen per surgery--> results as above and reviewed.
-Status post IR drain on 01/12.
-Follow-up repeat blood cultures for recurrent fevers since 01/12 but so far no growth but initial wound cultures growing E. coli and Enterococcus Raffinosus
-Low residue diet per surgery
Leukocytosis:
Afebrile
Continue current antibiotics
Continue to trend
Acute hypoxic respiratory insufficiency:
Now off of high flow oxygen for increased PEEP--> now down to 5 L of oxygen.
Continue to titrate oxygen as able.
Chest x-ray on 01/12 persistent moderate left pleural effusion-->Taken for possible thoracentesis on 01/10 but not enough fluid to be tapped. Discussed again with IR on 01/14 and not enough fluid.
Pulmonary following
Weight gain of 27 pounds noted over this admission. Suspect bilateral pleural effusions clinically.BNP very high. Still on 5 L of oxygen. not much change with IV Lasix yesterday-increase the dose today. Follow weights.
Obtain a chest x-ray , EKG and ECHO
Dyskinetic movements/Restless Legs:
-Psychiatry and neurology have decided to start her on Ingrezza. Seems to be working well.
-Also started on amantadine.
-Stopped Requip and Neupro patch
-Started melatonin
-Remains on trazodone 100 mg as needed, Flexeril as needed, Dilaudid as needed, and Depakote and psych discussed with outpatient psychiatrist who felt she did not have manic episode but patient decided to continue Depakote. Depakote doses have been
decreased with the possibility of discontinuing altogether in the near future.
-Seroquel stopped as Vfend increases serum concentration of Seroquel.
-Avoid antidopaminergic agents as much as possible
Thrombosis left upper extremity:
Superficial thrombosis in the left basilic vein (no DVT)
On Lovenox 40 mg daily for prevention DVT and will be enough for above plus local care.
Acute blood loss anemia:
-Aim to keep H&H more than 7. Follow blood work.
-s/p 3U pRBCs
Other problems:
h/o pulmonary Aspergillus: since Apr 2023. cont Vfend.
Hyperkalemia, resolved
HLD
GERD: cont PPI
Anxiety/depression: Continue Trazodone PRN/Prozac/Depakote. Seroquel stopped by psych.
FULL/Lovenox
Dispo-keep in IMU
Discussed with RN
Total time spent on today's encounter was 52 minutes which included time spent in counseling the patient/family regarding diagnosis and treatment plan as listed above, goals of care, and symptom management. Case was discussed with nursing staff,
specialists. All labs and imaging personally reviewed by me. Remainder the time spent in detailed review of previous records, lab data, imaging, and other medical provider documentation.
Anticipated Discharge: > 48 hours
Subjective/Interval History
-
Date of Service: January 19, 2024
some discomfort in the abdomen but tolerating diet without nausea or vomiting.
short winded with exertional activities.
Still requiring oxygen.
Denies any chest pain.
Objective Data
-
Labs:
Laboratory Results
01/19/24
04:24
WBC 21.5 H
Hgb 7.7 L
Hct 23.4 L
Plt Count 471 H
Sodium 136
Potassium 3.5
Chloride 89 L
Carbon Dioxide 40 H
BUN 11
Creatinine 0.3 L
Glucose 105 H
Calcium 8.0 L
Vital Signs:
Vital Signs
Temp Pulse Resp BP Pulse Ox
98.5 F 81 16 122/75 95
01/19/24 02:42 01/19/24 07:29 01/19/24 07:29 01/19/24 04:08 01/19/24 07:29
I&O
01/18/24 01/19/24 01/20/24
06:59 06:59 06:59
Intake Total 1190 / 1190 1000 / 1000
Output Total 1536 / 1536 1104 / 1104
Balance -346 / -346 -104 / -104
Review of Systems
-
Constitutional: Denies Fever
EENT: Denies Sore Throat
Respiratory: Denies Cough
Neuro: Denies Dizzy
Physical Exam
-
General: No Apparent Distress
HEENT: Moist Mucous Membranes
Respiratory: Crackles ( right base), Non Labored Respirations and Other ( Decreased breath sounds Especially in the left base.); Negative Accessory Resp Muscle Use
Cardiac: Regular Rhythm and S1/S2; Negative JVD
GI: Soft, Ostomy and Other ( left upper quadrant DAKOTA drain noted)
Musculoskeletal: Edema, Right Lower Extrem and Edema, Left Lower Extrem
Neuro: AO x 3
Psych: Negative Confused
Data Reviewed
-
Labs: Labs Reviewed by me
[2024-01-19] MEDS: DILAUDID 0.5 MG IV ×3 (09:52→23:49)
--- NOTE | 2024-01-19 10:09 | W.PN.GS2 ---
Today's Communication / Plan
-
-- Low residue diet and encourage PO intake/supplements; okay for family to bring in food/supplements from home.
-- Trend labs
-- OK for transfer from [facility]
Assessment / Plan
-
Assessment: 53 yo female with recent aspergillus pneumonia on home O2 and on recent steroids presenting with complicated diverticulitis with large pelvic abscess, failed initial nonoperative management now status post Garcia's procedure.
12/25/2023 s/p IR drainage of abscess cx with 2 strep species and 2 species of e.coli noted
01/03/2024 s/p exploratory laparotomy with takedown of splenic flexure, creation end colostomy with omentectomy
01/13/2024 s/p IR drain post op perisplenic fluid collection 01/14/24 cx with enterococcus/e. coli.
Clinically improving
Off TPN since 01/12, tolerating diet thus far but some nausea (likely related to LUQ abscess and irritation of stomach). +Stool/gas in ostomy output but low outputs
AFVSS
Leukocytosis improving mild bump today with drain manipulation yesterday, trend may need repeat CT if worsening, h/h stable
Plan:
Low residue diet and encourage PO intake/supplements; okay for family to bring in food/supplements from home.
Pain control: Tylenol, Oxycodone, IV Dilaudid PRN
Continue IV abx per ID recs
Ostomy teaching when tolerating
Continue drains x3 to bulb suction Flush IR drains x2 daily
Daily dressing changes to midline incision, dry gauze packing to open area in middle of wound
DVT: SCDs as tolerated. Lovenox sq
GI: IV PPI
Trend labs
OK for transfer from [facility]
Subjective Data
-
Date of Service: January 19, 2024
Feels slightly improved. Continues to have some generalized mild abdominal pain. Continues to have some mild nausea, no episodes of emesis. No fevers. RLS has improved.
Objective Data
-
Intake and Output
01/18/24 01/19/24 06
06:59 06:59 06:59
Intake Total 1190 / 1190 1000 / 1000
Output Total 1536 / 1536 1104 / 1104
Balance -346 / -346 -104 / -104
Intake:
Oral fluids 980 / 980 890 / 890
IV piggybacks 200 / 200 100 / 100
Amount instilled into Drain (
Total)
Left Lower Sacrum Cole-Olmos
A Placed in IR
Left Upper Abdomen Placed in IR
Output:
Liquid stool amount
Colostomy
Drain Output (Total) 44 44
Left Abdomen Cole-Olmos
Left Lower Sacrum Cole-Olmos 4 / 4
A Placed in IR
Left Upper Abdomen Placed in IR 35 35
Urine, Voided 1500 / 1500 1050 / 1050
Other:
Number of approximated SMALL 1 1
amounts of urine
Number of approximated MODERATE 1 1
amounts of urine
Number of approximated LARGE 1
amounts of urine
How many times incontinent 1
SATURATED amount urine
Vital Signs
Temp Pulse Resp BP Pulse Ox
98.5 F 81 16 122/75 95
01/19/24 02:42 01/19/24 07:29 01/19/24 07:29 01/19/24 04:08 01/19/24 07:29
Lab Results
01/19/24 04:24
01/19/24 04:24
Calcium 8.0 mg/dl (8.4-10.2) L 01/19/24 04:24
Phosphorus 3.4 mg/dl (2.5-4.5) 01/18/24 05:48
Magnesium 2.0 mg/dl (1.6-2.3) 01/18/24 05:48
Total Bilirubin 0.5 mg/dl (0.2-1.3) 01/18/24 05:48
AST 26 U/L (14-36) 01/18/24 05:48
ALT < 10 U/L (0-35) 01/18/24 05:48
Alkaline Phosphatase 88 U/L (38-126) 01/18/24 05:48
Total Protein 4.5 g/dl (6.3-8.2) L 01/18/24 05:48
Albumin 2.0 g/dl (3.5-5.0) L 01/18/24 05:48
Physical Exam
-
Gen: NAD
Abd: soft, mild diffuse tenderness, obese, mild distension, non-peritoneal, JPs with less purulent output, midline with central packing with less purulent output, no erythema or ecchymosis
[2024-01-19] MEDS: VFEND 200 MG PO ×2 (10:11→21:15)
[2024-01-19] MEDS: FOLVITE 1 MG PO (10:11)
--- NOTE | 2024-01-19 10:19 | W.PN.PUL.V3 ---
Today's Communication / Plan
-
Wean oxygen
Diuresis
Antibiotics
Follow chest [id number] if pleural effusion enlarges
Assessment
-
53-year-old female with past medical history of recurrent diverticulitis, pulmonary aspergillosis, hyperlipidemia, anxiety/depression, and GERD who presents with abdominal pain. She apparently was recently treated for diverticulitis in October 2023
with Augmentin at [facility] in [place] where she resides. She also reported that she was treated this month for ongoing fungal lung infection with Aspergillus and also given additional antibiotics but unknown what names of these
medications are. She developed a fever about 5 days ago and continues to be on Augmentin for last 3 days. She was visiting her mother in [place] prior to arrival when the pain in her left lower quadrant became severe so she came here to the
hospital for further care. She was afebrile in the ER to 98.6 �F, 79 pulse rate, breathing at 16 breaths/min, normotensive at 133/77 and saturating 100% on room air. Labs showed leukocytosis to 21.2, mild anemia to 11.5, mild hyponatremia to 134,
mild hyperkalemia to 5.6, and negative lipase of <10. CT A/P on admission showed severe sigmoid diverticulitis with large pericolonic abscess. She was given pain medications in the ER + Levaquin + IV fluids with NS x1L, and admitted to the
hospitalist service with general surgery consulted and antibiotics were started with Zosyn. She underwent IR CT-guided drainage on 12/24 with 170 cc of pale green purulent material seen - this later grew E. coli and group F Streptococcus. Patient
continues to be managed on the floor and was having issues with constipation. Repeat CT A/P performed on 01/02 showing decrease size in the abscess with pigtail drainage catheter seen in place, with massively distended right colon including the
cecum with stool distention and continued suspected distal descending colon/sigmoid diverticulitis. Given patient's worsening pain with distention and no flatus or BM in about 4 days, patient underwent exploratory laparotomy with splenic flexure
takedown, creation of end colostomy and omentectomy on 01/03/2024, and transferred to the ICU postoperatively. There was 150 cc of EBL and no immediate complications. Patient was stabilized and sent to the floor and pulmonary was reconsulted
01/12/2024 with ongoing hypoxemia.
Impression:
#Sigmoid diverticulitis s/p exploratory laparotomy with splenic flexure takedown, end colostomy creation and omentectomy � OR date: 01/12/2024
#Sigmoid diverticulitis c/b large pericolonic abscess s/p IR CT-guided drainage on 12/24 with purulent fluid growing E. coli + group F Streptococcus
#Constipation
#Leukocytosis
#Chronic anemia (unknown baseline but she has been between 8.5�11.5g/dL since admission)
#Lower lobe pulmonary bronchiectasis � likely due to her history of chronic pulmonary aspergillosis diagnosed in fall 2022
#History of pulmonary aspergillosis on voriconazole
Plan:
Pulmonary status still somewhat tenuous-likely fluid overloaded
Supplemental oxygen as needed-currently on 4-6 L/min mid flow-attempt to wean
Aspiration precautions
Incentive spirometry encouraged
Acapella
Mucus clearing devices
DuoNebs TID + budesonide BID
Singulair continues
Patient takes Breo as an outpatient
Chest x-ray 01/13/2024-moderate left pleural effusion which is stable and left lower lobe infiltrate concerning for pneumonia also stable
Chest ultrasound 01/11/2024-small to moderate pleural effusion, thoracentesis canceled-not enough fluid for evacuation
Chest x-ray 01/19/2024-pending
Cultures reviewed
Continue antibiotics - pt was on Zosyn (started 12/24/2023) and then changed to Meropenem on 01/13, and as of 01/15 she is back on Zosyn
Infectious disease following-correspondence reviewed
Left upper quadrant collection-IR drainage 01/14/2024
Continue voriconazole for her history of pulmonary aspergillosis
Diuresis as tolerated
Monitor renal function, electrolytes, intake/output, lower extremity edema and weight
Replace electrolytes as needed
Surgery following-correspondence reviewed
Patient is scheduled for an interventional radiology drain exchange 01/18/2024
Low residual diet per surgery
CT abdomen 01/12/2024-fluid collection left upper quadrant contains anterior air-fluid level compatible with abscess increased compared to 01/08/2024, irregular fluid collection within left pelvis and superimposed infection of this collection cannot be
excluded, pigtail catheter in posterior pelvis no evidence of collection in this area, bilateral pleural effusions left greater than right most likely atelectasis
Nasogastric tube per surgery
She is on a low residue diet and seems to be tolerating it well
Intermittent CT abdomen to follow-up on collections
Neurology following-correspondence reviewed
Restless legs still an issue-improved
Rotigotine patch now off
Continue amantadine and Ingrezza and remains Rotigotine
DVT prophylaxis-on Lovenox
GI prophylaxis-on Protonix (she takes pantoprazole at home)
Nutrition per surgery
Patient will require skilled rehab upon discharge
Reviewed with nursing as well as respiratory therapy as well as Dr. Sanz
Outpatient pulmonary follow-up -she has a electrician's helper as well as an ID doctor in [place], [place], and I advised her to follow-up with those specialists once she is discharged.
Subjective Data
-
Date of Service:
Date of Service: January 19, 2024
Chief Complaint: Pulmonary Follow Up and Dyspnea Follow Up
Subjective:
Still with significant shortness of breath, increased FiO2 requirements, no chest pain, abdominal pain improving, significant lower extremity edema
Review of Systems
General: Other (Per HPI)
Objective Data
Data Reviewed
Vital Signs / I&O:
Vital Signs
Temp Pulse Resp BP Pulse Ox
98.5 F 81 16 122/75 95
01/19/24 02:42 01/19/24 07:29 01/19/24 07:29 01/19/24 04:08 01/19/24 07:29
Intake and Output
01/18/24 01/19/24 01/20/24
06:59 06:59 06:59
Intake Total 1190 / 1190 1000 / 1000
Output Total 1536 / 1536 1104 / 1104
Balance -346 / -346 -104 / -104
SaO2: 95
Nasal Cannula flow liters per minute: 3
Physical Exam
General: Respiratory Distress (n) and Chills (negative)
HEENT: Normocephalic, Anicteric and Moist Mucous Membranes
Cardiovascular: S1-S2 and Peripheral Edema (+2 lower extremity pitting edema bilaterally)
Respiratory: Wheeze (n), Crackles (Bilaterally), Rhonchi (n), Non-Labored Respirations, Accessory Resp Muscle Use (n) and Stridor (n)
GI: Soft, Distended and Tender
Neurology: AO x 3 and Tremors (n)
Skin: Warm, Dry, Cyanosis (n) and Jaundice (n)
Labs/Micro/Reports
Lab Data
01/19/24 04:24
01/19/24 04:24
Microbiology
01/13/24 20:22 Blood/Venous Blood Culture - Final
No Growth - Final Report
01/13/24 18:56 Blood/Venous Blood Culture - Final
No Growth - Final Report
--- NOTE | 2024-01-19 11:10 | W.PN.ID1 ---
Date of Service
Date of Service: January 19, 2024
Today's Communication
Continue Zosyn (d#27 abx)
Assessment / Plan
Diverticular abscess status post IR drainage
S/p exploratory lap, colostomy (01/03/2024)
Leukocytosis - improving
LUQ collection
Hx Pulmonary aspergillosis; on Vfend as outpatient.
Recurrent diverticulitis
Anxiety/depression
Hx steroid-induced psychosis
GERD
Asthma
Recommendations:
Left upper quadrant abscess; s/p IR drainage 01/13/2024. Cultures E. coli (zosyn sensitive), Enterococcus raffinosus (amp. sensitive)
Leukocytosis remains elevated. (medication effect? ongoing infection? stress rxn?)
Continue Zosyn (d#27 abx)
Continue to monitor white count and temperature curve.
Continue with voriconazole (suspect for ABPA)
����������������������������������������������������������
Chief Complaint
-: Leukocytosis and Other (Diverticulitis; diverticular abscess)
Subjective / Review of Systems
Review of Systems: No Fever, No Chills, No Headache and Abdominal Pain (mild)
Vital Signs / Physical Exam
Vital Signs
Vital Signs
Temp Pulse Resp BP Pulse Ox
98.2 F 89 24 162/92 95
01/19/24 07:35 01/19/24 10:00 01/19/24 10:00 01/19/24 08:11 01/19/24 10:19
Physical Exam
Constitutional: No Acute Distress, Comfortable and Non-toxic
Eyes: Sclera Anicteric
Cardiovascular: S1/S2; Negative S3/S4
Pulmonary: Clear; Negative Wheezes, Rales or Rhonchi
Gastrointestinal: Soft, Non Tender, Non Distended and Normal Bowel Sounds
Extremities: Negative Edema, Cyanosis or Erythema
Skin: Negative Rash or Jaundice
Neurological: Awake, Alert and AO x 3; Negative Meningeal Signs
Psychological: Calm
Objective Data
Lab Data
Lab Results
01/19/24 04:24
01/19/24 04:24
PT 15.3 Sec (11.4-14.6) H 01/06/24 15:22
INR 1.21 01/06/24 15:22
APTT 35.6 Sec (23.4-35.0) H 01/06/24 15:22
Estimated Creat Clear > 125 ml/min 01/19/24 04:24
Lactic Acid Cancelled 01/04/24 09:00
Total Bilirubin 0.5 mg/dl (0.2-1.3) 01/18/24 05:48
AST 26 U/L (14-36) 01/18/24 05:48
ALT < 10 U/L (0-35) 01/18/24 05:48
Alkaline Phosphatase 88 U/L (38-126) 01/18/24 05:48
Most recent labs reviewed.
Micro Results:
01/13/24 20:22 Blood Culture - Final
Blood/Venous No Growth - Final Report
01/13/24 18:56 Blood Culture - Final
Blood/Venous No Growth - Final Report
01/15/24 10:08 Respiratory Culture - Final
Sputum Gram Stain - Final
01/13/24 13:00 Wound Culture - Final
Abscess Enterococcus raffinosus
Escherichia coli
Gram Stain - Final
01/09/24 14:28 Nasal Screen MRSA (PCR) - Final
Nose MRSA not detected - performed by PCR methodology.
12/26/23 14:43 Blood Culture - Final
Blood/Venous No Growth - Final Report
12/26/23 12:59 Blood Culture - Final
Blood/Venous No Growth - Final Report
12/25/23 17:30 Wound Culture - Final
Abscess Escherichia coli
Escherichia coli#2
Streptococcus species
Group F Streptococcus
Gram Stain - Final
Wound/abscess/other Cult Final 12/28/23-820
Many 1st strain Escherichia coli
Few 2nd strain Escherichia coli
Many Streptococcus species of two morphotypes
Moderate Group F Streptococcus*
1. Escherichia coli
M.I.C. RX
--------- ---
Amoxicillin/Potas. Clavulanate 16/8 I
Ampicillin >16 R
Ampicillin/Sulbactam >16/8 R
Cefazolin >16 R
Cefepime <=2 S
Ceftazidime <=1 S
Ceftriaxone <=1 S
Ertapenem <=0.5 S
Ciprofloxacin <=0.25 S
Gentamicin >8 R
Levofloxacin <=0.5 S
Meropenem <=1 S
Piperacillin/Tazobactam <=16 S
Tobramycin 8 I
Trimethoprim/Sulfamethoxazole >2/38 R
2. Escherichia coli#2
M.I.C. RX
--------- ---
Amoxicillin/Potas. Clavulanate <=8/4 S
Ampicillin >16 R
Ampicillin/Sulbactam >16/8 R
Cefazolin 16 R
Cefepime <=2 S
Ceftazidime <=1 S
Ceftriaxone <=1 S
Ertapenem <=0.5 S
Ciprofloxacin <=0.25 S
Gentamicin <=4 S
Levofloxacin <=0.5 S
Meropenem <=1 S
Piperacillin/Tazobactam <=16 S
Tobramycin <=4 S
Trimethoprim/Sulfamethoxazole > R
Imaging:
01/12/2024 CT abdomen/pelvis with contrast: There is a focal predominantly fluid collection in the left upper quadrant, which contains an anterior air-fluid level, compatible with an abscess. This has increased compared to examination of January 07,
2023. Of note, this collection is along the anterior margin of the spleen, without a well-defined plane between the collection and the spleen. There is also an irregular fluid collection within the left pelvis as described, and superimposed
infection of this collection cannot be excluded. There is a pigtail catheter in the left posterior pelvis, entering to the left gluteal region, with no evidence of a collection adjacent to this catheter. Subcutaneous edema, greater in both flanks.
Bilateral pleural effusions, left greater than right. Parenchymal opacity within both lower lobes, greater on the left compared to the right. This is most likely atelectasis, although underlying pneumonia difficult to completely exclude
radiographically.
01/03/2024 CT abdomen/pelvis: Markedly decreased posterior true pelvis abscess in comparison to prior pre-op chest drainage study with pigtail drainage catheter seen in the soft tissues of the left posterior true pelvis. Massively distended right
colon including cecum (cecum measuring up to 12 cm) with marked maximal colonic stool as well as gaseous distention of transverse and proximal descending colon, moderate stool with distention of the distal descending and sigmoid colon, limited in
evaluation without oral contrast opacification. Thickening Of the wall of the distal descending and proximal sigmoid colon which could represent colitis or diverticulitis. Partially obstructing distal colonic mass with inflammation cannot be
excluded. No free air. Please see full dictation for additional detail.
[2024-01-19 12:33] VITALS: BP 131/71
[2024-01-19] MEDS: ZOFRAN 4 MG IV (15:15)
--- NOTE | 2024-01-19 15:42 | CM ---
Patient with Dx Sigmoid diverticulitis with abscess, s/p Exploratory laparotomy, creation end colostomy, post op perisplenic fluid collection. O2 4L. Receiving IV Abx, IV Lasix. DAKOTA drains x3. Seen by Psych. Seen by ostomy nurse. PT/OT;
requires assist of 2, rec skilled rehab.
Met with patient, her brother MONA Roman and sister in law Kathy; discussed short term SNF for rehab. Patient has SNF list that she reviewed, and [facility] They have an appointment today with the ostomy
nurse for teaching - patient says she will be involved in learning how to manage her ostomy.
SNF referrals placed.
Plan follow up SNF referrals.
--- NOTE | 2024-01-19 15:53 | WOUNDNOTE ---
MUCOCUTANEOUS SEPARATION
--- NOTE | 2024-01-19 15:55 | WOUNDNOTE ---
SEPARATION FILLED IN WITH [facility]
--- NOTE | 2024-01-19 15:56 | WOUNDNOTE ---
WON RN NOTE: Appliance changed and teaching done with sister in law and brother at bedside. Patient more alert and able to participate a little bit, by closing tail end and listening to instruction. Stoma pink and budded 1 10/15' with mucocutaneous
separation at 9 o clock, slightly bigger compared to last week. Today after cleaning applied small piece of silver alginate into area, then Kelly seal and soft Convex wafer #[id number]. With flat wafer there was stool starting to leak under
wafer. Updated Dr. Stahl of the above and aware pictures in computer. Showed family and patient folder with list of supply companies, detailed step by step instructions on ostomy care and reviewed Colostomy pamphlet. Answered all questions. Aware
that patient will have a VN to follow patient for wound and ostomy needs when home and can call ostomy nurse for any other issues. Patient signed for secure start kit and will fax to [facility], reviewed with family what to expect in box with
samples. Will follow next pouch change if still here.
[2024-01-19 16:00] VITALS: BP 142/82
[2024-01-19] MEDS: LOVENOX 40 MG SC (17:21)
[2024-01-19] MEDS: SINGULAIR 10 MG PO (17:21)
[2024-01-19 20:00] VITALS: BP 125/106
--- NOTE | 2024-01-19 20:52 | PTCARENOTE ---
Received pt from jack RN. Pt is AAox3. NSR w/ PVCs. On 3L midflow, O2 sat 97%, lungs coarse/diminished/crackles. Pw in place for accurate I&O, IV Lasix given (as ordered). Pt is laying comfortable in bed with call richard in reach.
[2024-01-19] MEDS: DEPAKOTE ER (24 HR RELEASE) 250 MG PO (21:15)
[2024-01-19] MEDS: MELATONIN 5 MG PO (21:15)
[2024-01-20] VITALS (17 sets, daily range): BP systolic 94–150; BP diastolic 58–125; PULSE 85–114; O2SAT 93; BMI 32.3
[2024-01-20] MEDS: TYLENOL 1000 MG PO (04:17)
[2024-01-20 04:48] LABS: Hematocrit 22.2 % (37.0-47.0); Hemoglobin 7.6 g/dL (12.0-16.0); Mean Corp Hgb Conc. 34.2 g/dL (33.0-37.0); Mean Corpuscular Volume 87.7 fL (81.0-99.0); Mean Platelet Volume 8.7 fL (7.4-10.4); Platelet Count 520 10^3/uL (130-400); Red Blood Cell Count 2.53 10^6/uL (4.20-5.40); Red Cell Dist. Width 17.2 % (11.5-14.5); White Blood Cell Count 21.4 10^3/uL (4.8-10.8)
[2024-01-20] MEDS: ZOSYN 50 IV ×3 (05:00→17:21)
[2024-01-20 05:14] LABS: Blood Urea Nitrogen 11 mg/dl (7-17); Chloride 87 mmol/L (98-107); Estimated Creatinine Clearance > 125 ml/min; Glucose 91 mg/dl (70-99); Potassium 3.2 mmol/L (3.5-5.1); Sodium 135 mmol/L (135-145); eGFR > 60.00
[2024-01-20] MEDS: FLEXERIL 5 MG PO ×2 (05:29→22:06)
[2024-01-20] MEDS: KCL 40 MEQ PO ×2 (05:29→15:35)
[2024-01-20 05:35] LABS: Carbon Dioxide 44 mmol/L (22-30)
[2024-01-20] MEDS: VITAMIN D3 (cholecalciferol) 25 MCG PO (07:38)
[2024-01-20] MEDS: PROZAC 20 MG PO (07:38)
[2024-01-20] MEDS: FOLVITE 1 MG PO (07:38)
[2024-01-20] MEDS: SYMMETREL 100 MG PO ×2 (07:38→22:02)
[2024-01-20] MEDS: LASIX 40 MG IV ×2 (07:38→22:01)
[2024-01-20] MEDS: PROTONIX IV 40 MG IV (07:39)
[2024-01-20] MEDS: NSS (PRESERVATIVE FREE) 10 ML IV (07:39)
[2024-01-20] MEDS: DUONEB 3 ML INH ×3 (07:45→19:21)
[2024-01-20] MEDS: DILAUDID 0.5 MG IV ×4 (07:50→22:06)
[2024-01-20] MEDS: ZOFRAN 4 MG IV (07:54)
--- NOTE | 2024-01-20 09:27 | W.PN.PUL.V3 ---
Today's Communication / Plan
-
Wean oxygen
Continue diuresis
Thoracentesis
Antibiotics
Assessment
-
53-year-old female with past medical history of recurrent diverticulitis, pulmonary aspergillosis, hyperlipidemia, anxiety/depression, and GERD who presents with abdominal pain. She apparently was recently treated for diverticulitis in October 2023
with Augmentin at [facility], [place] in [place] where she resides. She also reported that she was treated this month for ongoing fungal lung infection with Aspergillus and also given additional antibiotics but unknown what names of these
medications are. She developed a fever about 5 days ago and continues to be on Augmentin for last 3 days. She was visiting her mother in [place] prior to arrival when the pain in her left lower quadrant became severe so she came here to the
hospital for further care. She was afebrile in the ER to 98.6 �F, 79 pulse rate, breathing at 16 breaths/min, normotensive at 133/77 and saturating 100% on room air. Labs showed leukocytosis to 21.2, mild anemia to 11.5, mild hyponatremia to 134,
mild hyperkalemia to 5.6, and negative lipase of <10. CT A/P on admission showed severe sigmoid diverticulitis with large pericolonic abscess. She was given pain medications in the ER + Levaquin + IV fluids with NS x1L, and admitted to the
hospitalist service with general surgery consulted and antibiotics were started with Zosyn. She underwent IR CT-guided drainage on 12/24 with 170 cc of pale green purulent material seen - this later grew E. coli and group F Streptococcus. Patient
continues to be managed on the floor and was having issues with constipation. Repeat CT A/P performed on 01/02 showing decrease size in the abscess with pigtail drainage catheter seen in place, with massively distended right colon including the
cecum with stool distention and continued suspected distal descending colon/sigmoid diverticulitis. Given patient's worsening pain with distention and no flatus or BM in about 4 days, patient underwent exploratory laparotomy with splenic flexure
takedown, creation of end colostomy and omentectomy on 01/03/2024, and transferred to the ICU postoperatively. There was 150 cc of EBL and no immediate complications. Patient was stabilized and sent to the floor and pulmonary was reconsulted
01/12/2024 with ongoing hypoxemia.
Impression:
#Sigmoid diverticulitis s/p exploratory laparotomy with splenic flexure takedown, end colostomy creation and omentectomy � OR date: 01/12/2024
#Sigmoid diverticulitis c/b large pericolonic abscess s/p IR CT-guided drainage on 12/24 with purulent fluid growing E. coli + group F Streptococcus
#Constipation
#Leukocytosis
#Chronic anemia (unknown baseline but she has been between 8.5�11.5g/dL since admission)
#Lower lobe pulmonary bronchiectasis � likely due to her history of chronic pulmonary aspergillosis diagnosed in fall 2022
#History of pulmonary aspergillosis on voriconazole
Plan:
Pulmonary status still somewhat tenuous-likely fluid overloaded
Supplemental oxygen as needed-currently on 4-6 L/min mid flow-attempt to wean
Aspiration precautions
Incentive spirometry encouraged
Acapella
Mucus clearing devices
DuoNebs TID + budesonide BID
Singulair continues
Patient takes Breo as an outpatient
Chest x-ray 01/13/2024-moderate left pleural effusion which is stable and left lower lobe infiltrate concerning for pneumonia also stable
Chest ultrasound 01/11/2024-small to moderate pleural effusion, thoracentesis canceled-not enough fluid for evacuation
Chest x-ray 01/19/2024-large left pleural effusion
Chest x-ray 01/20/2024-large left pleural effusion not significantly changed, borderline pulmonary edema with cephalization
Chest x-ray with significant increase in what appears to be pleural fluid from 01/13/2024 through 01/19/2024
[address] Paulson contacted interventional radiology for thoracentesis if appropriate tolerated-will send for cultures and analysis
Cultures reviewed
Continue antibiotics - pt was on Zosyn (started 12/24/2023) and then changed to Meropenem on 01/13, and as of 01/15 she is back on Zosyn
Infectious disease following-correspondence reviewed
Left upper quadrant collection-IR drainage 01/14/2024
Continue voriconazole for her history of pulmonary aspergillosis
Follow leukocytosis
Continue diuresis as tolerated--2.4 L / 24-hour
Monitor renal function, electrolytes, intake/output, lower extremity edema and weight
Replace electrolytes as needed
Surgery following-correspondence reviewed
Patient is scheduled for an interventional radiology drain exchange 01/18/2024
Low residual diet per surgery
CT abdomen 01/12/2024-fluid collection left upper quadrant contains anterior air-fluid level compatible with abscess increased compared to 01/08/2024, irregular fluid collection within left pelvis and superimposed infection of this collection cannot be
excluded, pigtail catheter in posterior pelvis no evidence of collection in this area, bilateral pleural effusions left greater than right most likely atelectasis
Nasogastric tube per surgery
She is on a low residue diet and seems to be tolerating it well
Intermittent CT abdomen to follow-up on collections
Neurology following-correspondence reviewed
Restless legs still an issue-improved
Rotigotine patch now off
Continue amantadine and Ingrezza and remains Rotigotine
DVT prophylaxis-on Lovenox
GI prophylaxis-on Protonix (she takes pantoprazole at home)
Nutrition per surgery
Patient will require skilled rehab upon discharge
Reviewed with nursing as well as respiratory therapy as well as Dr. Sanz
Outpatient pulmonary follow-up -she has a foundry worker as well as an ID doctor in [place], [place], and I advised her to follow-up with those specialists once she is discharged.
Subjective Data
-
Date of Service:
Date of Service: January 20, 2024
Chief Complaint: Pulmonary Follow Up and Dyspnea Follow Up
Subjective:
Feels better, less short of breath, less anxious, abdominal pain improved,
Review of Systems
General: Other (Per HPI)
Objective Data
Data Reviewed
Vital Signs / I&O:
Vital Signs
Temp Pulse Resp BP Pulse Ox
97.4 F 80 18 116/58 93
01/20/24 07:25 01/20/24 07:47 01/20/24 07:47 01/20/24 07:38 01/20/24 07:47
Intake and Output
01/19/24 01/20/24 01/21/24
06:59 06:59 06:59
Intake Total 1000 / 1000 520 / 520
Output Total 1104 / 1104 1959 / 1959 1000 / 1000
Balance -104 / -104 -1439 / -1439 -1000 / -1000
SaO2: 93
Nasal Cannula flow liters per minute: 2
Physical Exam
General: Respiratory Distress (n), Comfortable and Chills (negative)
HEENT: Normocephalic, Anicteric and Moist Mucous Membranes
Cardiovascular: Regular Rhythm and Peripheral Edema (+2 lower extremity pitting edema bilaterally)
Respiratory: Wheeze (n), Crackles (Bilaterally), Rhonchi (n), Non-Labored Respirations, Accessory Resp Muscle Use (n) and Stridor (n)
GI: Soft, Distended and Tender
Neurology: Awake, Alert and Tremors (n)
Skin: Warm, Dry, Cyanosis (n) and Jaundice (n)
Labs/Micro/Reports
Lab Data
01/20/24 04:32
01/20/24 04:32
Microbiology
01/13/24 20:22 Blood/Venous Blood Culture - Final
No Growth - Final Report
01/13/24 18:56 Blood/Venous Blood Culture - Final
No Growth - Final Report
[2024-01-20] MEDS: VFEND 200 MG PO ×2 (09:34→22:02)
[2024-01-20] MEDS: NON-FORMULARY ITEM 1 UNIT PO (09:34)
--- NOTE | 2024-01-20 09:55 | W.PN.ID1 ---
Date of Service
Date of Service: January 20, 2024
Today's Communication
Continue Zosyn (d#28 abx)
Assessment / Plan
Diverticular abscess
- s/p IR drainage (12/25/23)
- s/p exploratory lap, colostomy (01/03/24)
- s/p IR drainage perisplenic fluid (01/13/24)
Leukocytosis
- persists
Hx Pulmonary aspergillosis; on Vfend as outpatient.
Recurrent diverticulitis
Anxiety/depression
Hx steroid-induced psychosis
GERD
Asthma
Recommendations:
Left upper quadrant abscess; s/p IR drainage 01/13/2024. Cultures E. coli (zosyn sensitive), Enterococcus raffinosus (amp. sensitive)
Leukocytosis remains elevated. (medication effect? ongoing infection? stress rxn?)
Continue Zosyn (d#28 abx)
Continue to monitor white count and temperature curve.
For Repeat CT today.
Continue with voriconazole (suspect for ABPA)
����������������������������������������������������������
Chief Complaint
-: Leukocytosis and Other (Diverticulitis; diverticular abscess)
Subjective / Review of Systems
Review of Systems: No Fever, No Chills, No Chest Pain and No Abdominal Pain
Vital Signs / Physical Exam
Vital Signs
Vital Signs
Temp Pulse Resp BP Pulse Ox
97.4 F 80 18 116/58 93
01/20/24 07:25 01/20/24 07:47 01/20/24 07:47 01/20/24 07:38 01/20/24 09:27
Physical Exam
Constitutional: No Acute Distress, Comfortable and Non-toxic
Eyes: Sclera Anicteric
Cardiovascular: S1/S2; Negative S3/S4
Pulmonary: Clear; Negative Wheezes, Rales or Rhonchi
Gastrointestinal: Soft, Non Tender, Non Distended, Normal Bowel Sounds and Other (Miltiple DAKOTA's in place)
Genito-Urinary: Negative Calles
Extremities: Negative Edema, Cyanosis or Erythema
Skin: Negative Rash or Jaundice
Neurological: Awake, Alert and AO x 3; Negative Meningeal Signs
Psychological: Calm
Objective Data
Lab Data
Lab Results
01/20/24 04:32
01/20/24 04:32
PT 15.3 Sec (11.4-14.6) H 01/06/24 15:22
INR 1.21 01/06/24 15:22
APTT 35.6 Sec (23.4-35.0) H 01/06/24 15:22
Estimated Creat Clear > 125 ml/min 01/20/24 04:32
Lactic Acid Cancelled 01/04/24 09:00
Total Bilirubin 0.5 mg/dl (0.2-1.3) 01/18/24 05:48
AST 26 U/L (14-36) 01/18/24 05:48
ALT < 10 U/L (0-35) 01/18/24 05:48
Alkaline Phosphatase 88 U/L (38-126) 01/18/24 05:48
Most recent labs reviewed.
Micro Results:
01/13/24 20:22 Blood Culture - Final
Blood/Venous No Growth - Final Report
01/13/24 18:56 Blood Culture - Final
Blood/Venous No Growth - Final Report
01/15/24 10:08 Respiratory Culture - Final
Sputum Gram Stain - Final
01/13/24 13:00 Wound Culture - Final
Abscess Enterococcus raffinosus
Escherichia coli
Gram Stain - Final
01/09/24 14:28 Nasal Screen MRSA (PCR) - Final
Nose MRSA not detected - performed by PCR methodology.
12/26/23 14:43 Blood Culture - Final
Blood/Venous No Growth - Final Report
12/26/23 12:59 Blood Culture - Final
Blood/Venous No Growth - Final Report
12/25/23 17:30 Wound Culture - Final
Abscess Escherichia coli
Escherichia coli#2
Streptococcus species
Group F Streptococcus
Gram Stain - Final
Wound/abscess/other Cult Final 12/28/23-0821
Many 1st strain Escherichia coli
Few 2nd strain Escherichia coli
Many Streptococcus species of two morphotypes
Moderate Group F Streptococcus*
1. Escherichia coli
M.I.C. RX
--------- ---
Amoxicillin/Potas. Clavulanate 16/8 I
Ampicillin >16 R
Ampicillin/Sulbactam >16/8 R
Cefazolin >16 R
Cefepime <=2 S
Ceftazidime <=1 S
Ceftriaxone <=1 S
Ertapenem <=0.5 S
Ciprofloxacin <=0.25 S
Gentamicin >8 R
Levofloxacin <=0.5 S
Meropenem <=1 S
Piperacillin/Tazobactam <=16 S
Tobramycin 8 I
Trimethoprim/Sulfamethoxazole >2/38 R
2. Escherichia coli#2
M.I.C. RX
--------- ---
Amoxicillin/Potas. Clavulanate <=8/4 S
Ampicillin >16 R
Ampicillin/Sulbactam >16/8 R
Cefazolin 16 R
Cefepime <=2 S
Ceftazidime <=1 S
Ceftriaxone <=1 S
Ertapenem <=0.5 S
Ciprofloxacin <=0.25 S
Gentamicin <=4 S
Levofloxacin <=0.5 S
Meropenem <=1 S
Piperacillin/Tazobactam <=16 S
Tobramycin <=4 S
Trimethoprim/Sulfamethoxazole > R
Imaging:
01/12/2024 CT abdomen/pelvis with contrast: There is a focal predominantly fluid collection in the left upper quadrant, which contains an anterior air-fluid level, compatible with an abscess. This has increased compared to examination of January 07,
2023. Of note, this collection is along the anterior margin of the spleen, without a well-defined plane between the collection and the spleen. There is also an irregular fluid collection within the left pelvis as described, and superimposed
infection of this collection cannot be excluded. There is a pigtail catheter in the left posterior pelvis, entering to the left gluteal region, with no evidence of a collection adjacent to this catheter. Subcutaneous edema, greater in both flanks.
Bilateral pleural effusions, left greater than right. Parenchymal opacity within both lower lobes, greater on the left compared to the right. This is most likely atelectasis, although underlying pneumonia difficult to completely exclude
radiographically.
01/03/2024 CT abdomen/pelvis: Markedly decreased posterior true pelvis abscess in comparison to prior pre-op chest drainage study with pigtail drainage catheter seen in the soft tissues of the left posterior true pelvis. Massively distended right
colon including cecum (cecum measuring up to 12 cm) with marked maximal colonic stool as well as gaseous distention of transverse and proximal descending colon, moderate stool with distention of the distal descending and sigmoid colon, limited in
evaluation without oral contrast opacification. Thickening Of the wall of the distal descending and proximal sigmoid colon which could represent colitis or diverticulitis. Partially obstructing distal colonic mass with inflammation cannot be
excluded. No free air. Please see full dictation for additional detail.
[2024-01-20] MEDS: OMNIPAQUE 50 ML PO (11:17)
--- NOTE | 2024-01-20 11:47 | W.PN.GS2 ---
Today's Communication / Plan
-
See plan
Assessment / Plan
-
Assessment: 53 yo female with recent aspergillus pneumonia on home O2 and on recent steroids presenting with complicated diverticulitis with large pelvic abscess, failed initial nonoperative management now status post Garcia's procedure.
12/25/2023 s/p IR drainage of abscess cx with 2 strep species and 2 species of e.coli noted
01/03/2024 s/p exploratory laparotomy with takedown of splenic flexure, creation end colostomy with omentectomy
01/13/2024 s/p IR drain post op perisplenic fluid collection 01/14/24 cx with enterococcus/e. coli.
Clinically improving
Off TPN since 01/12, tolerating diet thus far but some nausea (likely related to LUQ abscess and irritation of stomach). +Stool/gas in ostomy output but low outputs
AFVSS
Leukocytosis persistently elevated, not trending up nor down
CXR with significant left pleural effusion
PICC in RUE
Plan: DVT US RUE, DC PICC
Consult IR for left thoracentesis (D/W Pulmonology team)
CT A/P to rule out additional undrained collections
Cont low residue diet and encourage PO intake/supplements; okay for family to bring in food/supplements from home.
Pain control: Tylenol, Oxycodone, IV Dilaudid PRN
Continue IV abx per ID recs
Ostomy teaching when tolerating
Continue drains x3 to bulb suction Flush IR drains x2 daily
Daily dressing changes to midline incision, dry gauze packing to open area in middle of wound
DVT: SCDs as tolerated. Lovenox sq
GI: IV PPI
Trend labs
OK for transfer from IMU
Subjective Data
-
Date of Service: January 20, 2024
AFVSS, continues to improve clinically with less pain and better control of involuntary extremity movements, denies n/v
Objective Data
-
Intake and Output
01/19/24 01/20/24 01/21/24
06:59 06:59 06:59
Intake Total 1000 / 1000 520 / 520
Output Total 1104 / 1104 1958 / 1958 1000 / 1000
Balance -104 / -104 -1439 / -1439 -1000 / -1000
Intake:
Oral fluids 890 / 890 410 / 410
IV piggybacks 100 / 100 100 / 100
Amount instilled into Drain (
Total)
Left Lower Sacrum Cole-Olmos
A Placed in IR
Left Upper Abdomen Placed in IR
Output:
Liquid stool amount
Colostomy
Drain Output (Total) 44 / 44
Left Abdomen Cole-Olmos 7 / 7
Left Lower Sacrum Cole-Olmos 2 / 2
A Placed in IR
Left Upper Abdomen Placed in IR 35 / 35
Urine, Voided 1050 / 1050 1929 / 1929 1000 / 999
Other:
Number of approximated SMALL 1
amounts of urine
Number of approximated MODERATE 1
amounts of urine
Number of approximated LARGE 1 1
amounts of urine
How many times incontinent 1
SATURATED amount urine
Vital Signs
Temp Pulse Resp BP Pulse Ox
98.4 F 88 17 150/88 94
01/20/24 11:05 01/20/24 10:00 01/20/24 10:00 01/20/24 09:39 01/20/24 11:08
Lab Results
01/20/24 04:32
01/20/24 04:32
Calcium 8.0 mg/dl (8.4-10.2) L 01/20/24 04:32
Phosphorus 3.4 mg/dl (2.5-4.5) 01/18/24 05:48
Magnesium 2.0 mg/dl (1.6-2.3) 01/18/24 05:48
Total Bilirubin 0.5 mg/dl (0.2-1.3) 01/18/24 05:48
AST 26 U/L (14-36) 01/18/24 05:48
ALT < 10 U/L (0-35) 01/18/24 05:48
Alkaline Phosphatase 88 U/L (38-126) 01/18/24 05:48
Total Protein 4.5 g/dl (6.3-8.2) L 01/18/24 05:48
Albumin 2.0 g/dl (3.5-5.0) L 01/18/24 05:48
Physical Exam
-
Gen: NAD
Abd: soft, approp ttp, incision cdi with open central area with clean granulation tissue in wound base, no purulence, LUQ and LLQ drains purulent, posterior drain serous
--- NOTE | 2024-01-20 12:14 | W.PN.HOSP.TC ---
Today's Communication/Plan
-
CT of the abdomen pelvis per surgery.
Continue with antibiotics.
Obtain cardiology consultation.
Continue with IV diuresis.
IR consult for left thoracentesis
Assessment / Plan
Assessment / Plan
A/P:
Sigmoid diverticulitis with abscess:
-h/o diverticulosis/diverticulitis
-s/p abscess drainage 12/25/23 by IR. E. coli and Enterococcus Raffinosus on 01/12 wound cultures.
-with findings of massively distended right colon including the cecum on CT scan of the abdomen pelvis on January 03, 2024 the patient was taken to the OR for Exploratory laparotomy, takedown splenic flexure, creation end colostomy, omentectomy
-ID changing IV meropenem back to Zosyn since 01/15.
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
-repeated CT scan of the abdomen per surgery--> results as above and reviewed.
-Status post IR drain on 01/12.
-Follow-up repeat blood cultures for recurrent fevers since 01/12 but so far no growth but initial wound cultures growing E. coli and Enterococcus Raffinosus
-Low residue diet per surgery
Leukocytosis:
Afebrile
Continue current antibiotics per ID
Continue to trend -Persistent elevated-surgery requesting a CT of the abdomen pelvis.
Acute hypoxic respiratory insufficiency:
Now off of high flow oxygen for increased PEEP--> now down to 5 L of oxygen.
Continue to titrate oxygen as able.
Chest x-ray on 01/12 persistent moderate left pleural effusion-->Taken for possible thoracentesis on 01/10 but not enough fluid to be tapped. Discussed again with IR on 01/14 and not enough fluid.
Pulmonary following
Weight gain of 27 pounds noted over this admission. .BNP very high. Improving weight and oxygenation. Continue with the diuretics.
Hypokalemia - replete
Left lung opacity suspicious for pleural effusion-pulmonary arranging for thoracentesis.
Abnormal EKG-patient now has poor R waves in the anterior leads and also T wave inversion. Echo also showed low normal EF of 50%. Will consult cardiology for ischemia eval.
Dyskinetic movements/Restless Legs:
-Psychiatry and neurology have decided to start her on Ingrezza. Seems to be working well.
-Also started on amantadine.
-Stopped Requip and Neupro patch
-Started melatonin
-Remains on trazodone 100 mg as needed, Flexeril as needed, Dilaudid as needed, and Depakote and psych discussed with outpatient psychiatrist who felt she did not have manic episode but patient decided to continue Depakote. Depakote doses have been
decreased with the possibility of discontinuing altogether in the near future.
-Seroquel stopped as Vfend increases serum concentration of Seroquel.
-Avoid antidopaminergic agents as much as possible
Thrombosis left upper extremity:
Superficial thrombosis in the left basilic vein (no DVT)
On Lovenox 40 mg daily for prevention DVT and will be enough for above plus local care.
Acute blood loss anemia:
-Aim to keep H&H more than 7. Follow blood work.
-s/p 3U pRBCs
Other problems:
h/o pulmonary Aspergillus: since Apr 2023. cont Vfend.
Hyperkalemia, resolved
HLD
GERD: cont PPI
Anxiety/depression: Continue Trazodone PRN/Prozac/Depakote. Seroquel stopped by psych.
FULL/Lovenox
Dispo-keep in IMU
Discussed with Pulm today
AUTUMN RN
Total time spent on today's encounter was 52 minutes which included time spent in counseling the patient/family regarding diagnosis and treatment plan as listed above, goals of care, and symptom management. Case was discussed with nursing staff,
specialists. All labs and imaging personally reviewed by me. Remainder the time spent in detailed review of previous records, lab data, imaging, and other medical provider documentation.
Anticipated Discharge: > 48 hours
Subjective/Interval History
-
Date of Service: January 20, 2024
Breathing is better. But she has a central upper abdomen/ lower chest kind of fullness and tightness. No N/V.
Objective Data
-
Labs:
Laboratory Results
01/20/24
04:32
WBC 21.4 H
Hgb 7.6 L
Hct 22.2 L
Plt Count 520 H
Sodium 135
Potassium 3.2 L
Chloride 87 L
Carbon Dioxide 44 H
BUN 11
Creatinine 0.3 L
Glucose 91
Calcium 8.0 L
Vital Signs:
Vital Signs
Temp Pulse Resp BP Pulse Ox
98.4 F 88 17 150/88 94
01/20/24 11:05 01/20/24 10:00 01/20/24 10:00 01/20/24 09:39 01/20/24 11:08
I&O
01/19/24 01/20/24 01/21/24
06:59 06:59 06:59
Intake Total 1000 / 1000 520 / 520
Output Total 1104 / 1104 1958 1000 / 1000
Balance -104 / -104 -1439 / -1439 -1000 / -1000
Review of Systems
-
Constitutional: Denies Fever
Respiratory: Denies Cough
Neuro: Denies Dizzy
Physical Exam
-
General: No Apparent Distress
HEENT: Moist Mucous Membranes
Respiratory: Non Labored Respirations and Other (currently on 2l O2); Negative Wheezes or Accessory Resp Muscle Use
Cardiac: Regular Rhythm and S1/S2
GI: Soft, Normal Bowel Sounds, Ostomy and Other (LUQ drain)
Neuro: AO x 3
Data Reviewed
-
Medical Tests (Nuc Med, Echo etc): Report Reviewed by me (ECHO;EKG)
Labs: Labs Reviewed by me
--- NOTE | 2024-01-20 12:58 | CON.CAR ---
Addendum entered and electronically signed by Fred Carranza MD 01/20/24 17:31:
I saw and examined the patient.
The First Aid Director's note was reviewed and I agree with the note.
Comment: Briefly, 53-year-old woman who initially presented with abdominal pain and fever found to have diverticular abscess and has had prolonged hospitalization with multiple procedures including ex lap and IR drainage of perisplenic fluid and
has been maintained on IV antibiotics
Now volume overloaded on exam, weight is up significantly, chest x-ray concerning for mild pulmonary edema,requiring supplemental oxygen and proBNP is significantly elevated to 12,000 all in keeping with decompensate heart failure - suspect this is
iatrogenic related to IV fluid administration
Recent echo showed LV function was borderline with LVEF 50%
Agree with IV diuretics to improve her volume status, would continue IV lasix 40mg BID and follow renal function and electrolytes
Additionally, frequent PVCs seen on telemetry
Replete electrolytes
Cont tele
Would consider starting low-dose metoprolol if frequent ectopy continues
Original Note:
Consultation
Consultation Request
Date/Time Consultation Requested: 01/20/2024
Date/Time Consultation Performed: 01/20/2024
Requesting Provider: Dr. Sanz
Performing Provider: Linda Valdez PA-C for Dr. Carranza
Reason for Consultation: Abnormal EKG, concern for heart failure
Medical History
-
History of Present Illness:
Patient is a 53-year-old female with past medical history significant for recurrent diverticulitis, pulmonary aspergillosis, hyperlipidemia, anxiety/depression, GERD and chronic anemia who presented to emergency department 12/24/2023 with acute
abdominal pain and fever. She was noted to have sigmoid diverticulitis with diverticular abscess and underwent IR drainage 12/25/2023. Due to constipation with distention and absent bowel sounds she underwent exploratory laparotomy with splenic
flexure takedown, creation of end colostomy and omentectomy on 01/03/2024. She underwent IR drainage of perisplenic fluid on 01/13/2024. Patient being followed closely by ID on antibiotics. Patient was n.p.o. for extended period of time and recently
advanced to low resolution diet. Patient received considerable volume throughout her hospitalization and has had 27 pound weight gain. Patient now with worsening shortness of breath, hypoxemia. Chest x-ray from 01/20/2024 shows large left pleural
fluid collection with indwelling left-sided chest tube and borderline pulmonary edema with cephalization of pulmonary vasculature. proBNP performed on 01/20/2024 noted to be elevated at 12,800. EKG performed on 01/19/2024 showed sinus rhythm with
new T wave abnormality in anterolateral leads which was not present on admission. She underwent an echocardiogram which demonstrated mildly reduced ejection fraction of 50% with elevated pulmonary pressures. Cardiology being asked to see patient
for concerns of acute heart failure and abnormal EKG.
At time of this evaluation patient lying in bed wearing oxygen. She just returned from having left-sided thoracentesis. Notes some improvement of breathing. Ongoing abdominal bloating and discomfort. Denies chest pain
PMH:
Chronic anemia
Hx Pulmonary aspergillosis voriconazole as outpatient
Bronchiectasis
Recurrent diverticulitis
Anxiety/depression
Hx steroid-induced psychosis
GERD
Asthma
Hyperlipidemia
Obesity
Spontaneous right carotid dissection discovered after ongoing migraine headaches in ~2021 Treated conservatively with DAPT
Restless legs syndrome
Tardive dyskinesia
Past Medical History
Past Medical History: Other (See HPI)
Past Surgical History: Bowel Resection ( s/p exploratory lap, colostomy (01/03/24) ) and Orthopedic (C5-6 fusion, Ankle surgery)
Social History
Tobacco: Former Smoker
Alcohol: None
Drug: None
Personal: Single
Living: Alone
Family History
Family History: CAD (Father of CAD in late 50s) and Other (Mother :immune deficiency, polymyositis, diabetes)
Allergies / Home Medications
Allergy/AdvReac Type Severity Reaction Status Date / Time
No Known Allergies Allergy Unverified 12/24/23 15:13
�Medication �Instructions �Recorded �Confirmed �Type
acetaminophen 500 mg tablet 1,000 mg PO Q6H PRN mild pain/fever 12/24/23 12/24/23 History
albuterol sulfate 90 mcg/actuation 2 puff inhalation R Q4 PRN 12/24/23 12/24/23 History
aerosol inhaler sob/wheezing
aspirin 81 mg tablet,delayed 81 mg PO DAILY Blood Clot 12/24/23 12/24/23 History
release Prevention/Tx
benzonatate 100 mg capsule 100 mg PO TID PRN cough 12/24/23 12/24/23 History
cholecalciferol (vitamin D3) 25 25 mcg PO DAILY Supplement 12/24/23 12/24/23 History
mcg (1,000 unit) tablet (Vitamin
D3)
fluoxetine 40 mg capsule (Prozac) 40 mg PO DAILY Mental 12/24/23 12/24/23 History
Health/Anxiety
fluticasone furoate 200 1 inh inhalation R DAILY 12/24/23 12/24/23 History
mcg-vilanterol 25 mcg/dose Lung/Breathing Issues
inhalation powder (Breo Ellipta)
ibuprofen 200 mg capsule 200 mg PO Q6H PRN mild pain/fever 12/24/23 12/24/23 History
ipratropium 0.5 mg-albuterol 3 mg 3 ml inhalation R TID 12/24/23 12/24/23 History
(2.5 mg base)/3 mL nebulization Lung/Breathing Issues
soln
melatonin 3 mg tablet 3 mg PO HS PRN sleep 12/24/23 12/24/23 History
montelukast 10 mg tablet 10 mg PO QPM ASTHMA 12/24/23 12/24/23 History
pantoprazole 40 mg tablet,delayed 40 mg PO DAILY Gastrointestinal 12/24/23 12/24/23 History
release Issue
quetiapine 50 mg tablet (Seroquel) 50 mg PO BID Mental Health/Anxiety 12/24/23 12/24/23 History
trazodone 100 mg tablet 200 mg PO HS Mental Health/Anxiety 12/24/23 12/24/23 History
voriconazole 200 mg tablet 200 mg PO Q12H Infection 12/24/23 12/24/23 History
cefdinir 300 mg capsule 300 mg PO BID #28 caps 12/31/23 Rx
divalproex 500 mg tablet,extended 500 mg PO HS #30 tabs 12/31/23 Rx
release 24 hr
docusate sodium 100 mg capsule 100 mg PO BID #0 caps 12/31/23 Rx
metronidazole 500 mg tablet 500 mg PO TID #42 tabs 12/31/23 Rx
polyethylene glycol 3350 17 gram 17 g PO DAILY #0 ea 12/31/23 Rx
oral powder packet (HealthyLax)
sodium chloride 0.9 % (flush) 5 ml intra-catheter DAILY #2,500 mL 12/31/23 Rx
(Normal Saline Flush 0.9 %
injection syringe)
hydrocodone 5 mg-acetaminophen 325 1 tab PO Q8H PRN severe pain only 01/01/24 Rx
mg tablet #20 tabs
budesonide 0.5 mg/2 mL suspension 0.5 mg inhalation BIDPRN PRN sob 01/05/24 01/05/24 History
for nebulization
Review of Systems
-
History Source: Patient
All other systems: Negative unless noted
Physical Exam
Vital Signs
Temp Pulse Resp BP Pulse Ox
98.4 F 88 17 150/88 94
01/20/24 11:05 01/20/24 10:00 01/20/24 10:00 01/20/24 09:39 01/20/24 11:08
GEN: No distress, awake, Ox3; lying in bed wearing oxygen
HEENT: supple, anicteric, mmm
LUNGS: Decreased breath sound at right base, absent breath sound at left base CTA, no wheezes/rales; 3 L of oxygen via nasal cannula
CV: Reg with occasional ectopy, S1/S2, no murmur, rub or gallops
ABD: soft, BS+, NT/ND
EXT: +1 bilateral lower extremity edema right greater than left
NEURO: Gross non-focal
SKIN: No rash, warm, dry, pink
Lab Results
01/20/24 04:32
01/20/24 04:32
Ldd-M-Czmrvpwtztq Pept 62046 pg/ml 01/18/24 05:48
Impression / Plan
-
PCP: Iva Benton
Nurse Wound: None prior to admission, initial consultation Dr. Carranza
Impression:
Presented 12/24/2023 with acute abdominal pain
Sigmoid diverticulitis with diverticular abscess
- s/p IR drainage grew E. coli and group F Streptococcus (12/25/23)
- s/p exploratory lap, colostomy (01/03/24)
- s/p IR drainage perisplenic fluid (01/13/24)
Leukocytosis
Acute on chronic anemia
Superficial thrombosis of left basilic vein (no DVT)
Abnormal EKG
Acute hypoxic respiratory insufficiency
Left-sided pleural effusion
-s/p Lt thoracentesis 01/20/24
Acute heart failure, proBNP 12,800
Chronic anemia
Hx Pulmonary aspergillosis voriconazole as outpatient
Bronchiectasis
Recurrent diverticulitis
Anxiety/depression
Hx steroid-induced psychosis
GERD
Asthma
Hyperlipidemia
Obesity
Spontaneous right carotid dissection discovered after ongoing migraine headaches in ~2021 Treated conservatively with DAPT
Restless legs syndrome
Tardive dyskinesia
Echo 01/19/2024: EF 50%, stage I DD, mild TR, PAP 35 to 40 mmHg, mild TX, pleural effusion present, trivial pericardial effusion. IVC is moderately dilated
Plan:
Patient is a 53-year-old female with past medical history significant for recurrent diverticulitis, pulmonary aspergillosis, hyperlipidemia, anxiety/depression, GERD and chronic anemia who presented to emergency department 12/24/2023 with acute
abdominal pain and fever. She was noted to have sigmoid diverticulitis with diverticular abscess and underwent IR drainage 12/25/2023. Due to constipation with distention and absent bowel sounds she underwent exploratory laparotomy with splenic
flexure takedown, creation of end colostomy and omentectomy on 01/03/2024. She underwent IR drainage of perisplenic fluid on 01/13/2024. Patient being followed closely by ID on antibiotics. Patient was n.p.o. for extended period of time and recently
advanced to low resolution diet. Patient received considerable volume throughout her hospitalization and has had 27 pound weight gain. Patient now with worsening shortness of breath, hypoxemia. Chest x-ray from 01/20/2024 shows large left pleural
fluid collection with indwelling left-sided chest tube and borderline pulmonary edema with cephalization of pulmonary vasculature. proBNP performed on 01/20/2024 noted to be elevated at 12,800. EKG performed on 01/19/2024 showed sinus rhythm with
new T wave abnormality in anterolateral leads which was not present on admission. She underwent an echocardiogram which demonstrated mildly reduced ejection fraction of 50% with elevated pulmonary pressures. Cardiology being asked to see patient
for concerns of acute heart failure and abnormal EKG.
At time of this evaluation patient lying in bed wearing oxygen. She just returned from having left-sided thoracentesis. Notes some improvement of breathing. Ongoing abdominal bloating and discomfort. Denies chest pain
-Presented 12/24/2023 with acute abdominal pain found to have sigmoid diverticulitis with abscess s/p IR drainage x 2 and colostomy (events as noted above). Continue antibiotics per ID; repeat imaging of abd/pelvis today
-Acute hypoxic respiratory insufficiency with concern for acute heart failure exacerbation
-proBNP 12,800 on 01/20/2024
-Patient with 27 pound weight gain since admission
-Acute heart failure likely secondary to fluid resuscitation as patient had been n.p.o. for prolonged period of time.
-Agree with diuresis, started IV Lasix 40 mg twice daily on 01/19/2024. Continue to monitor and trend response with the initiation of diuretic therapy
-Currently requiring oxygen down to 5 L. Wean as tolerated. Hopeful improvement of respiratory status with diuresis
-Hypokalemia, K3.2. Patient did receive 40 mEq in a.m. Given initiation of diuretic therapy will give an additional 40 meq this afternoon. Repeat BMP in a.m. Likely will need additional KCL with diuresis
-Abnormal EKG: Noted to have new T wave abnormality in anterolateral leads which was not present on admission.
-Echo performed 01/19/2024 showed mildly reduced ejection fraction of 50% with no wall motion abnormalities noted.
-Telemetry reviewed and noted to have frequent ventricular bigeminy. Correct electrolytes (hypokalemia). BP stable. Consider adding low dose Toprol for ectopy and mildly reduced EF 50%
-Continue to monitor EKG. Consider outpatient ischemic evaluation once patient has recovered from acute diverticulitis. Patient has no history of known coronary disease.
-Left pleural effusion, taken for possible thoracentesis on 01/10 but not enough fluid to be tapped. Found to be large on CT 01/20/24 now s/p left thoracentesis ~ 1000 cc per nursing on 01/20/24 (official report pending). Cytology pending
-Rt UE ultrasound pending
-Acute on chronic anemia, hemoglobin 7.6. Continue to monitor and trend. Has received 3 units of blood this admission, last transfused 01/08/24
Data Reviewed
-
EKG: Report Reviewed by me, Discussed with Physician, Discussed with Nurse and Discussed with Patient
Radiology: Report Reviewed by me, Discussed with Physician, Discussed with Nurse and Discussed with Patient
CT Scan: Report Reviewed by me, Discussed with Physician, Discussed with Nurse and Discussed with Patient
Medical Tests (Nuc Med, Echo etc): Report Reviewed by me, Discussed with Physician, Discussed with Nurse and Discussed with Patient
Labs: Labs Reviewed by me, Discussed with Physician, Discussed with Nurse and Discussed with Patient
Old Records: Reviewed
--- NOTE | 2024-01-20 13:04 | PTCARENOTE ---
Patient is prepping for CT scan scheduled for this afternoon. Patient is for U/S and IR as well. Patient has been NPO since breakfast. Educated about plan of care.
--- NOTE | 2024-01-20 14:54 | W.PN.UPDATE ---
Update Note
Progress Note Update
attempted to see patient but she was off the unit. reviewed chart and spoke with nursing. nursing reports that the dyskinetic movements are much improved and from this perspective patient is 'a new person.' today patient was even able to sit at
the edge of the bed w legs dangling and support herself which is very good news. will see her tomorrow.
--- NOTE | 2024-01-20 15:39 | PTCARENOTE ---
Patient arrived back to unit after ct scan , thoraentesis and ultrasound. Patient is verbalizing that she is feeling 'a lot better'. Lungs diminished at bases, expiratory wheezing upper airways. Bandaid intact on left upper rib cage, no drainage.
[2024-01-20 15:42] LABS: Body Fluid pH 7.37
[2024-01-20 16:00] LABS: Body Fluid Glucose 35 mg/dl; Body Fluid Protein 3.1 g/dl
[2024-01-20 16:03] LABS: Body Fluid WBC 561 /CUMM
[2024-01-20 16:16] LABS: Body Fluid Second Tech RLT
--- NOTE | 2024-01-20 16:20 | CM ---
Patient with Dx Sigmoid diverticulitis with abscess, s/p Exploratory laparotomy, creation end colostomy, post op perisplenic fluid collection. O2 3L. Receiving IV Zosyn, IV Lasix. Plan IR for left thoracentesis. Continue drains x3 to bulb
suction. Seen by Psych. Seen by ostomy nurse. PT/OT; requires assist of 2, rec skilled rehab.
Message with Dr Carter - patient day #28 IV Abx - IV Abx will complete once WBC hopefully trends down in the next day or so.
SNF referrals reviewed. Declined by [facility] due to no available bed, [facility], no response [facility].
Spoke with [facility]; they cannot accept patient due to her age < 60.
Spoke with [facility]; they will consider the patient if bed is available. Provided update that ID is hopeful that the IV Abx will finish here.
[facility] continuing to follow.
Plan follow up with [facility] for acceptance when closer to d/c.
[2024-01-20 16:35] LABS: Body Fluid LDH 4123 U/L
[2024-01-20] MEDS: LOVENOX 40 MG SC (17:21)
[2024-01-20] MEDS: SINGULAIR 10 MG PO (17:21)
[2024-01-20] MEDS: MELATONIN 5 MG PO (22:01)
[2024-01-20] MEDS: DEPAKOTE ER (24 HR RELEASE) 250 MG PO (22:02)
[2024-01-21] VITALS (14 sets, daily range): BP systolic 108–136; BP diastolic 57–91; PULSE 81–82; O2SAT 96; BMI 31.2
[2024-01-21] MEDS: ZOSYN 50 IV ×5 (00:53→23:26)
[2024-01-21] MEDS: DILAUDID 0.5 MG IV ×5 (05:03→21:27)
--- NOTE | 2024-01-21 05:57 | PTCARENOTE ---
Patient able to sleep. TD has significantly improved compared to last week. Medicated for abd pain per OCT. Denies nausea. 3L in place, Sp02 WNL. Lungs with rhonchi, pt with productive cough. Pt reports breathing better since thoracentesis; dyspnea
is improved. JPs x2 flushed per order. Abd midline dressing CDI. Colostomy had large soft brown output. SCDs on. Tolerated IV Abx. Voiding large amount clear yellow via purewick. NSR on tele. Repositioned for comfort. Call richard within reach. Pt
calls appropriately.
[2024-01-21] MEDS: DUONEB 3 ML INH ×3 (07:15→19:40)
[2024-01-21] MEDS: PROTONIX IV 40 MG IV (08:18)
[2024-01-21] MEDS: NSS (PRESERVATIVE FREE) 10 ML IV (08:18)
--- NOTE | 2024-01-21 08:56 | PTCARENOTE ---
Assumed care of pt from night RN, pt AAOx3, forgetful at times. Colostomy outputting soft brown stool. DAKOTA drains x 3 - LLQ, LUQ draining purulent, L sacral draining serosang. C/o nausea at times. Lungs w/ rhonchi and crackles throughout, continues
with IV Lasix BID. Currently working with PT. Will monitor through shift.
--- NOTE | 2024-01-21 09:07 | W.PN.ID1 ---
Date of Service
Date of Service: January 21, 2024
Today's Communication
Continue Zosyn (d#29 abx)
Assessment / Plan
Diverticular abscess
- s/p IR drainage (12/25/23)
- s/p exploratory lap, colostomy (01/03/24)
- s/p IR drainage perisplenic fluid (01/13/24)
Leukocytosis
- persists
Hx Pulmonary aspergillosis; on Vfend as outpatient.
Recurrent diverticulitis
Anxiety/depression
Hx steroid-induced psychosis
GERD
Asthma
Recommendations:
Left upper quadrant abscess; s/p IR drainage 01/13/2024. Cultures E. coli (zosyn sensitive), Enterococcus raffinosus (amp. sensitive)
Leukocytosis remains elevated. (medication effect? ongoing infection? stress rxn?)
Continue Zosyn (d#29 abx)
Continue to monitor white count and temperature curve.
Check HIV serology. Patient has given verbal consent.
Repeat CT revealed near complete drainage of left upper quadrant collection. A large left-sided pleural effusion is noted.
Continue with voriconazole (suspect for ABPA)
����������������������������������������������������������
Chief Complaint
-: Leukocytosis and Other (Diverticulitis; diverticular abscess)
Subjective / Review of Systems
Patient seen and examined. Reports feeling quite well today.
Notes that at some point in the past she had a partner who reportedly was HIV positive (although reportedly undetectable). Would like testing.
Review of Systems: No Fever and No Chills
Vital Signs / Physical Exam
Vital Signs
Vital Signs
Temp Pulse Resp BP Pulse Ox
98.5 F 79 16 109/63 96
01/21/24 03:44 01/21/24 07:17 01/21/24 07:17 01/21/24 06:00 01/21/24 07:45
Physical Exam
Constitutional: No Acute Distress, Comfortable and Non-toxic
Eyes: Sclera Anicteric
Cardiovascular: S1/S2; Negative S3/S4
Pulmonary: Clear; Negative Wheezes, Rales or Rhonchi
Gastrointestinal: Soft, Non Tender, Non Distended, Normal Bowel Sounds and Other (DAKOTA's in place)
Genito-Urinary: Negative Calles
Extremities: Negative Edema, Cyanosis or Erythema
Skin: Negative Rash or Jaundice
Neurological: Awake, Alert and AO x 3; Negative Meningeal Signs
Psychological: Calm
Objective Data
Lab Data
Lab Results
01/20/24 04:32
PT 15.3 Sec (11.4-14.6) H 01/06/24 15:22
INR 1.21 01/06/24 15:22
APTT 35.6 Sec (23.4-35.0) H 01/06/24 15:22
Estimated Creat Clear > 125 ml/min 01/20/24 04:32
Lactic Acid Cancelled 01/04/24 09:00
Total Bilirubin 0.5 mg/dl (0.2-1.3) 01/18/24 05:48
AST 26 U/L (14-36) 01/18/24 05:48
ALT < 10 U/L (0-35) 01/18/24 05:48
Alkaline Phosphatase 88 U/L (38-126) 01/18/24 05:48
Most recent labs reviewed.
Micro Results:
01/20/24 14:44 Body Fluid Culture - Pending
Pleural Fluid Gram Stain - Preliminary
01/13/24 20:22 Blood Culture - Final
Blood/Venous No Growth - Final Report
01/13/24 18:56 Blood Culture - Final
Blood/Venous No Growth - Final Report
01/15/24 10:08 Respiratory Culture - Final
Sputum Gram Stain - Final
01/13/24 13:00 Wound Culture - Final
Abscess Enterococcus raffinosus
Escherichia coli
Gram Stain - Final
01/09/24 14:28 Nasal Screen MRSA (PCR) - Final
Nose MRSA not detected - performed by PCR methodology.
12/26/23 14:43 Blood Culture - Final
Blood/Venous No Growth - Final Report
12/26/23 12:59 Blood Culture - Final
Blood/Venous No Growth - Final Report
12/25/23 17:30 Wound Culture - Final
Abscess Escherichia coli
Escherichia coli#2
Streptococcus species
Group F Streptococcus
Gram Stain - Final
Wound/abscess/other Cult Final 12/28/23-820
Many 1st strain Escherichia coli
Few 2nd strain Escherichia coli
Many Streptococcus species of two morphotypes
Moderate Group F Streptococcus*
1. Escherichia coli
M.I.C. RX
--------- ---
Amoxicillin/Potas. Clavulanate 16/8 I
Ampicillin >16 R
Ampicillin/Sulbactam >16/8 R
Cefazolin >16 R
Cefepime <=2 S
Ceftazidime <=1 S
Ceftriaxone <=1 S
Ertapenem <=0.5 S
Ciprofloxacin <=0.25 S
Gentamicin >8 R
Levofloxacin <=0.5 S
Meropenem <=1 S
Piperacillin/Tazobactam <=16 S
Tobramycin 8 I
Trimethoprim/Sulfamethoxazole >2/38 R
2. Escherichia coli#2
M.I.C. RX
--------- ---
Amoxicillin/Potas. Clavulanate <=8/4 S
Ampicillin >16 R
Ampicillin/Sulbactam >16/8 R
Cefazolin 16 R
Cefepime <=2 S
Ceftazidime <=1 S
Ceftriaxone <=1 S
Ertapenem <=0.5 S
Ciprofloxacin <=0.25 S
Gentamicin <=4 S
Levofloxacin <=0.5 S
Meropenem <=1 S
Piperacillin/Tazobactam <=16 S
Tobramycin <=4 S
Trimethoprim/Sulfamethoxazole > R
Imaging:
01/12/2024 CT abdomen/pelvis with contrast: There is a focal predominantly fluid collection in the left upper quadrant, which contains an anterior air-fluid level, compatible with an abscess. This has increased compared to examination of January 07,
2023. Of note, this collection is along the anterior margin of the spleen, without a well-defined plane between the collection and the spleen. There is also an irregular fluid collection within the left pelvis as described, and superimposed
infection of this collection cannot be excluded. There is a pigtail catheter in the left posterior pelvis, entering to the left gluteal region, with no evidence of a collection adjacent to this catheter. Subcutaneous edema, greater in both flanks.
Bilateral pleural effusions, left greater than right. Parenchymal opacity within both lower lobes, greater on the left compared to the right. This is most likely atelectasis, although underlying pneumonia difficult to completely exclude
radiographically.
01/03/2024 CT abdomen/pelvis: Markedly decreased posterior true pelvis abscess in comparison to prior pre-op chest drainage study with pigtail drainage catheter seen in the soft tissues of the left posterior true pelvis. Massively distended right
colon including cecum (cecum measuring up to 12 cm) with marked maximal colonic stool as well as gaseous distention of transverse and proximal descending colon, moderate stool with distention of the distal descending and sigmoid colon, limited in
evaluation without oral contrast opacification. Thickening Of the wall of the distal descending and proximal sigmoid colon which could represent colitis or diverticulitis. Partially obstructing distal colonic mass with inflammation cannot be
excluded. No free air. Please see full dictation for additional detail.
--- NOTE | 2024-01-21 09:27 | W.PN.CARDCBS ---
Addendum entered and electronically signed by Bruce Gerber MD 01/21/24 10:55:
She offers no complaints from a cardiac standpoint, dyspnea is improved - thoracentesis for 1 L yesterday
PMH/PSH/FH/SH: Reviewed
Allergies: None
Pertinent outpatient cardiac meds: Aspirin 81 mg a day, a variety of other medications, fluoxetine, nebulizers, hydrocodone acetaminophen, PPI, Seroquel, antibiotics, trazodone
Current cardiac meds: Subcu enoxaparin, furosemide 40 mg IV twice daily
ROS: Negative except as above
109/63, pulse 79, afebrile, intake and output -2 L, admission weight had been 85.8 kg, peak weight was 97.6 kg, weight today is 93 kg head neck exam unremarkable lungs are clear,
Cardiac exam within normal limits, abdomen with colostomy, obese extremities without clubbing cyanosis or edema distal pulses intact,
White count yesterday 21.4, hemoglobin 7.6, BUN and creatinine 11 and 0.3 yesterday, potassium 3.2, sodium 135, proBNP had been 12,800 on January 17, potassium today is 3.7
Impression:
Presented 12/24/2023 with acute abdominal pain
Sigmoid diverticulitis with diverticular abscess
s/p IR drainage grew E. coli and group F Streptococcus (12/25/23)
s/p exploratory lap, colostomy (01/03/24)
s/p IR drainage perisplenic fluid (01/13/24)Leukocytosis
Acute on chronic anemia
3 units PRBCs so far this admissionSuperficial thrombosis of left basilic vein (no DVT)
Abnormal EKG
Acute hypoxic respiratory insufficiency
Left-sided pleural effusion
s/p Lt thoracentesis for 1 L 01/20/24Acute HFpEF
Hx Pulmonary aspergillosis voriconazole as outpatient
Bronchiectasis
Recurrent diverticulitis
Anxiety/depression
Hx steroid-induced psychosis
GERD
Asthma
Hyperlipidemia
Obesity
Spontaneous right carotid dissection discovered after ongoing migraine headaches in ~2021 Treated conservatively with DAPT
Restless legs syndrome
Tardive dyskinesia
Echo 01/19/2024: EF 50%, stage I DD, mild TR, PAP 35 to 40 mmHg, mild FL, pleural effusion present, trivial pericardial effusion. IVC is moderately dilated
She is overall improved. However still probably 6 or 7 kg above dry weight. Continue IV furosemide.
We can consider other agents for HFpEF, but given circumstances this may not be of much utility.
We will continue to follow.
Echocardiogram 01/19/2024: Mild LVH, EF 50%, low normal systolic function, normal atria, normal RV, trace MR, pulmonary artery pressure 35-40, normal aortic valve, pleural effusion, physiologic pericardial effusion dilated IVC
Mostly IV diuretics, acute HFpEF, will need to decide about SGLT2 antagonist, spironolactone, etc.
Original Note:
Today's Communication / Plan
-
Cont Lasix 40 mg IV BID
Needs results from today's labs, might need more KCl
Occasional ventricular bigeminy on tele
Impression / Plan
-
PCP: Iva Benton
Tour Production Supervisor: None prior to admission, initial consultation Dr. Carranza
Impression:
Presented 12/24/2023 with acute abdominal pain
Sigmoid diverticulitis with diverticular abscess
s/p IR drainage grew E. coli and group F Streptococcus (12/25/23)
s/p exploratory lap, colostomy (01/03/24)
s/p IR drainage perisplenic fluid (01/13/24)
Leukocytosis
Acute on chronic anemia
3 units PRBCs so far this admission
Superficial thrombosis of left basilic vein (no DVT)
Abnormal EKG
Acute hypoxic respiratory insufficiency
Left-sided pleural effusion
s/p Lt thoracentesis for 1 L 01/20/24
Acute HFpEF
Hx Pulmonary aspergillosis voriconazole as outpatient
Bronchiectasis
Recurrent diverticulitis
Anxiety/depression
Hx steroid-induced psychosis
GERD
Asthma
Hyperlipidemia
Obesity
Spontaneous right carotid dissection discovered after ongoing migraine headaches in ~2021 Treated conservatively with DAPT
Restless legs syndrome
Tardive dyskinesia
Echo 01/19/2024: EF 50%, stage I DD, mild TR, PAP 35 to 40 mmHg, mild FL, pleural effusion present, trivial pericardial effusion. IVC is moderately dilated
Plan:
-Weight is down 5 lbs overnight with Lasix 40 mg IV BID diuresis and left-sided thoracentesis for 1 L 01/20/24. Dry weight unknown due to NPO throughout much of her admission, but weight was up a total of 27 lbs this admission prior to initiation of
diuresis.. Cre stable on 01/20/24. Will continue with diuresis.
-Oxygen requirements have improved and are down to 3 L on .
-Labs pending for 01/21/24. Potassium was 3.2 on 01/20/24 and was supplemented plus KCl 20 meq daily added 01/21/24.
-Eventual outpatient ischemic evaluation for anterolateral T wave changes on ECG 01/19/24 reviewed by me
-Tele reviewed by me 01/21/24, occasional episodes of ventricular bigeminy, asymptomatic. Labs pending. BP 109/63
-Hgb stable at 7. Patient has received a total of 3 units PRBCs this admission.
HPI: Patient is a 53-year-old female with past medical history significant for recurrent diverticulitis, pulmonary aspergillosis, hyperlipidemia, anxiety/depression, GERD and chronic anemia who presented to emergency department 12/24/2023 with acute
abdominal pain and fever. She was noted to have sigmoid diverticulitis with diverticular abscess and underwent IR drainage 12/25/2023. Due to constipation with distention and absent bowel sounds she underwent exploratory laparotomy with splenic
flexure takedown, creation of end colostomy and omentectomy on 01/03/2024. She underwent IR drainage of perisplenic fluid on 01/13/2024. Patient being followed closely by ID on antibiotics. Patient was n.p.o. for extended period of time and recently
advanced to low resolution diet. Patient received considerable volume throughout her hospitalization and has had 27 pound weight gain. Patient now with worsening shortness of breath, hypoxemia. Chest x-ray from 01/20/2024 shows large left pleural
fluid collection with indwelling left-sided chest tube and borderline pulmonary edema with cephalization of pulmonary vasculature. proBNP performed on 01/20/2024 noted to be elevated at 12,800. EKG performed on 01/19/2024 showed sinus rhythm with
new T wave abnormality in anterolateral leads which was not present on admission. She underwent an echocardiogram which demonstrated mildly reduced ejection fraction of 50% with elevated pulmonary pressures. Cardiology being asked to see patient
for concerns of acute heart failure and abnormal EKG.
Progress Note - Tour Production Supervisor
Subjective
Date of Service: January 21, 2024
She feels less SOB and less swollen today
Objective
Labs:
01/20/24 04:32
Labs
Hgb 7.6 g/dL (12.0-16.0) L 01/20/24 04:32
Hct 22.2 % (37.0-47.0) L 01/20/24 04:32
Plt Count 520 10^3/uL (130-400) H 01/20/24 04:32
PT 15.3 Sec (11.4-14.6) H 01/06/24 15:22
INR 1.21 01/06/24 15:22
APTT 35.6 Sec (23.4-35.0) H 01/06/24 15:22
Sodium 135 mmol/L (135-145) 01/20/24 04:32
Potassium 3.2 mmol/L (3.5-5.1) L 01/20/24 04:32
BUN 11 mg/dl (7-17) 01/20/24 04:32
Creatinine 0.3 mg/dL (0.6-1.0) L 01/20/24 04:32
Glucose 91 mg/dl (70-99) 01/20/24 04:32
Vital Signs and I&O:
Vital Signs
Temp Pulse Resp BP Pulse Ox
98.3 F 79 16 109/63 96
01/21/24 07:15 01/21/24 07:17 01/21/24 07:17 01/21/24 06:00 01/21/24 07:45
Vital Signs
Temp Pulse Resp BP Pulse Ox
98.3 F 79 16 109/63 96
01/21/24 07:15 01/21/24 07:17 01/21/24 07:17 01/21/24 06:00 01/21/24 07:45
Intake & Output
01/19/24 01/20/24 01/21/24 01/22/24
06:59 06:59 06:59 06:59
Intake Total 1000 / 1000 520 / 520 1120 / 1120
Output Total 1104 / 1104 1958 / 1958 3273 / 3273
Balance -104 / -104 -1439 / -1439 -2153 / -2153
Physical Exam
Physical Exam
GEN: NAD. Movements of tardive dyskinesia
HEENT: MMM
LUNGS: Wearing oxygen at 3 L NC. No audible wheeze
CV: SR on tele, no murmur
ABD: ND
EXT:+1 pitting B/L LE edema
NEURO: Gross non-focal
SKIN: No rash
[2024-01-21] MEDS: VFEND 200 MG PO ×2 (09:47→21:27)
[2024-01-21] MEDS: KCL 20 MEQ PO (09:47)
[2024-01-21] MEDS: VITAMIN D3 (cholecalciferol) 25 MCG PO (09:47)
[2024-01-21] MEDS: SYMMETREL 100 MG PO ×2 (09:47→20:05)
[2024-01-21] MEDS: PROZAC 20 MG PO (09:47)
[2024-01-21] MEDS: FOLVITE 1 MG PO (09:48)
[2024-01-21] MEDS: LASIX 40 MG IV ×2 (09:48→20:04)
[2024-01-21] MEDS: NON-FORMULARY ITEM 1 UNIT PO (09:49)
--- NOTE | 2024-01-21 10:11 | W.PN.PUL.V3 ---
Today's Communication / Plan
-
Continue antibiotics
Continue diuresis
Wean oxygen
Nutrition
Increase activity
Assessment
-
53-year-old female with past medical history of recurrent diverticulitis, pulmonary aspergillosis, hyperlipidemia, anxiety/depression, and GERD who presents with abdominal pain. She apparently was recently treated for diverticulitis in October 2023
with Augmentin at [facility] in [place] where she resides. She also reported that she was treated this month for ongoing fungal lung infection with Aspergillus and also given additional antibiotics but unknown what names of these
medications are. She developed a fever about 5 days ago and continues to be on Augmentin for last 3 days. She was visiting her mother in [place] prior to arrival when the pain in her left lower quadrant became severe so she came here to the
hospital for further care. She was afebrile in the ER to 98.6 �F, 79 pulse rate, breathing at 16 breaths/min, normotensive at 133/77 and saturating 100% on room air. Labs showed leukocytosis to 21.2, mild anemia to 11.5, mild hyponatremia to 134,
mild hyperkalemia to 5.6, and negative lipase of <10. CT A/P on admission showed severe sigmoid diverticulitis with large pericolonic abscess. She was given pain medications in the ER + Levaquin + IV fluids with NS x1L, and admitted to the
hospitalist service with general surgery consulted and antibiotics were started with Zosyn. She underwent IR CT-guided drainage on 12/24 with 170 cc of pale green purulent material seen - this later grew E. coli and group F Streptococcus. Patient
continues to be managed on the floor and was having issues with constipation. Repeat CT A/P performed on 01/02 showing decrease size in the abscess with pigtail drainage catheter seen in place, with massively distended right colon including the
cecum with stool distention and continued suspected distal descending colon/sigmoid diverticulitis. Given patient's worsening pain with distention and no flatus or BM in about 4 days, patient underwent exploratory laparotomy with splenic flexure
takedown, creation of end colostomy and omentectomy on 01/03/2024, and transferred to the ICU postoperatively. There was 150 cc of EBL and no immediate complications. Patient was stabilized and sent to the floor and pulmonary was reconsulted
01/12/2024 with ongoing hypoxemia.
Impression:
#Sigmoid diverticulitis s/p exploratory laparotomy with splenic flexure takedown, end colostomy creation and omentectomy � OR date: 01/12/2024
#Sigmoid diverticulitis c/b large pericolonic abscess s/p IR CT-guided drainage on 12/24 with purulent fluid growing E. coli + group F Streptococcus
#Constipation
#Leukocytosis
#Chronic anemia (unknown baseline but she has been between 8.5�11.5g/dL since admission)
#Lower lobe pulmonary bronchiectasis � likely due to her history of chronic pulmonary aspergillosis diagnosed in fall 2022
#History of pulmonary aspergillosis on voriconazole
Pleural effusion status post thoracentesis 01/20/2024
Plan:
Respiratory status improved after thoracentesis 01/20/2024
Supplemental oxygen as needed-currently on 4-6 L/min mid flow-attempt to wean
Aspiration precautions
Incentive spirometry encouraged
Acapella
Mucus clearing devices
DuoNebs TID + budesonide BID
Singulair continues
Note that the patient takes Breo as an outpatient
Radiographs summarized below
Chest x-ray with significant increase in what appears to be pleural fluid from 01/13/2024 through 01/19/2024
[address] Paulson contacted interventional radiology for thoracentesis 01/20/24--1000 mL clear yellow pleural fluid
Chest x-ray 01/20/2024-no pneumothorax, small to moderate residual left pleural effusion significantly decreased
Upper right extremity ultrasound 01/20/2024-no evidence for DVT
Cultures reviewed
Continue antibiotics - pt was on Zosyn (started 12/24/2023) and then changed to Meropenem on 01/13, and as of 01/15 she is back on Zosyn
Infectious disease following-correspondence reviewed
Left upper quadrant collection-IR drainage 01/14/2024
Continue voriconazole for her history of pulmonary aspergillosis
Follow leukocytosis
Continue diuresis as tolerated--2.4 L on 01/20/2024 and -733 mL on 01/21/2024
Monitor renal function, electrolytes, intake/output, lower extremity edema and weight
Replace electrolytes as needed
Cardiology following-correspondence reviewed-continue with IV diuresis
Surgery following-correspondence reviewed
Patient is scheduled for an interventional radiology drain exchange 01/18/2024
Low residual diet per surgery
CT abdomen 01/12/2024-fluid collection left upper quadrant contains anterior air-fluid level compatible with abscess increased compared to 01/08/2024, irregular fluid collection within left pelvis and superimposed infection of this collection cannot be
excluded, pigtail catheter in posterior pelvis no evidence of collection in this area, bilateral pleural effusions left greater than right most likely atelectasis
Nasogastric tube per surgery
She is on a low residue diet and seems to be tolerating it well
Intermittent CT abdomen to follow-up on collections
Neurology following-correspondence reviewed
Restless legs still an issue-improved
Rotigotine patch now off
Continue amantadine and Ingrezza and remains Rotigotine
DVT prophylaxis-on Lovenox
GI prophylaxis-on Protonix (she takes pantoprazole at home)
Nutrition per surgery
Patient will require skilled rehab upon discharge
Reviewed with nursing as well as respiratory therapy as well as Dr. Sanz
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
Data:
Chest x-ray 01/13/2024-moderate left pleural effusion which is stable and left lower lobe infiltrate concerning for pneumonia also stable
Chest ultrasound 01/11/2024-small to moderate pleural effusion, thoracentesis canceled-not enough fluid for evacuation
Chest x-ray 01/19/2024-large left pleural effusion
Chest x-ray 01/20/2024-large left pleural effusion not significantly changed, borderline pulmonary edema with cephalization
Echo 01/19/2024: EF 50%, stage I DD, mild TR, PAP 35 to 40 mmHg, mild WI, pleural effusion present, trivial pericardial effusion. IVC is moderately dilated
Subjective Data
-
Date of Service:
Date of Service: January 21, 2024
Chief Complaint: Pulmonary Follow Up and Dyspnea Follow Up
Subjective:
Feels better after thoracentesis, no increase shortness of breath, no chest congestion, productive cough, or abdominal pain
Review of Systems
General: Other (per HPI)
Objective Data
Data Reviewed
Vital Signs / I&O:
Vital Signs
Temp Pulse Resp BP Pulse Ox
98.3 F 77 16 128/78 96
01/21/24 07:15 01/21/24 09:48 01/21/24 07:17 01/21/24 09:48 01/21/24 07:45
Intake and Output
01/20/24 01/21/24 01/22/24
06:59 06:59 06:59
Intake Total 520 / 520 1120 / 1120 420 / 420
Output Total 1958 / 1958 3273 / 3273
Balance -1439 / -1439 -2153 / -2153 420 / 420
SaO2: 96
Nasal Cannula flow liters per minute: 3
Physical Exam
General: Respiratory Distress (n), Comfortable and Chills (negative)
HEENT: Normocephalic, Anicteric and Moist Mucous Membranes
Cardiovascular: Regular Rhythm and Peripheral Edema (+2 lower extremity pitting edema bilaterally)
Respiratory: Wheeze (n), Crackles (Bilaterally), Rhonchi (n), Non-Labored Respirations, Accessory Resp Muscle Use (n) and Stridor (n)
GI: Soft, Distended and Tender
Neurology: Awake, Alert and Tremors (n)
Skin: Warm, Dry, Cyanosis (n) and Jaundice (n)
Labs/Micro/Reports
Lab Data
01/20/24 04:32
Microbiology
01/20/24 14:44 Pleural Fluid Gram Stain - Preliminary
01/13/24 20:22 Blood/Venous Blood Culture - Final
No Growth - Final Report
01/13/24 18:56 Blood/Venous Blood Culture - Final
No Growth - Final Report
[2024-01-21] MEDS: FLEXERIL 5 MG PO (10:28)
[2024-01-21 10:35] LABS: Blood Urea Nitrogen 9 mg/dl (7-17); Calcium 8.2 mg/dl (8.4-10.2); Chloride 83 mmol/L (98-107); Estimated Creatinine Clearance > 125 ml/min; Glucose 99 mg/dl (70-99); Potassium 3.7 mmol/L (3.5-5.1); eGFR > 60.00
[2024-01-21 10:37] LABS: Sodium 134 mmol/L (135-145)
[2024-01-21 10:42] LABS: Carbon Dioxide 46 mmol/L (22-30)
--- NOTE | 2024-01-21 10:45 | W.PN.GS2 ---
Today's Communication / Plan
-
`
Assessment / Plan
-
Assessment: 53 yo female with recent aspergillus pneumonia on home O2 and on recent steroids presenting with complicated diverticulitis with large pelvic abscess, failed initial nonoperative management now status post Garcia's procedure.
12/25/2023 s/p IR drainage of abscess cx with 2 strep species and 2 species of e.coli noted
01/03/2024 s/p exploratory laparotomy with takedown of splenic flexure, creation end colostomy with omentectomy
01/13/2024 s/p IR drain post op perisplenic fluid collection 01/14/24 cx with enterococcus/e. coli.
Off TPN since 01/12,
AFVSS
Leukocytosis persistently elevated
followup CT 01/19 without new abdominal collection and prior collections resolving; large left pleural effusion ->thoracentesis with IR 01/19
Plan: Cont low residue diet and encourage PO intake/supplements; okay for family to bring in food/supplements from home.
Pain control: Tylenol, Oxycodone, IV Dilaudid PRN
Continue IV abx per ID recs
Ostomy teaching
Continue drains x3 to bulb suction Flush IR drains x2 daily
Daily dressing changes to midline incision, dry gauze packing to open area in middle of wound
DVT: SCDs as tolerated. Lovenox sq
GI: IV PPI
Subjective Data
-
Date of Service: January 21, 2024
pt seen and examined
sitting comfortably at bedside
post op pain controlled
no nausea
ate some breakfast-cheese omelet
Objective Data
-
Intake and Output
01/20/24 01/21/24 01/22/24
06:59 06:59 06:59
Intake Total 520 / 520 1120 / 1120 420 / 420
Output Total 1958 / 1958 3273 / 3273
Balance -1439 / -1439 -2153 / -2153 420 / 420
Intake:
Oral fluids 410 / 410 960 / 960 420 / 420
IV fluids (Total) 50 / 50
IV piggybacks 100 / 100 100 / 100
Amount instilled into Drain (
Total)
Left Lower Sacrum Cole-Olmos
A Placed in IR
Left Upper Abdomen Placed in IR
Output:
Drain Output (Total)
Left Abdomen Cole-Olmos
Left Lower Sacrum Cole-Olmos
A Placed in IR
Left Upper Abdomen Placed in IR
Urine, Voided 193 / 1929 3250 / 3250
Other:
Number of approximated LARGE 1 1
amounts of urine
How many times incontinent 1
SATURATED amount urine
Vital Signs
Temp Pulse Resp BP Pulse Ox
98.3 F 77 16 128/78 96
01/21/24 07:15 01/21/24 09:48 01/21/24 07:17 01/21/24 09:48 01/21/24 10:11
Lab Results
01/20/24 04:32
01/21/24 10:01
Calcium 8.2 mg/dl (8.4-10.2) L 01/21/24 10:01
Phosphorus 3.4 mg/dl (2.5-4.5) 01/18/24 05:48
Magnesium 2.0 mg/dl (1.6-2.3) 01/18/24 05:48
Total Bilirubin 0.5 mg/dl (0.2-1.3) 01/18/24 05:48
AST 26 U/L (14-36) 01/18/24 05:48
ALT < 10 U/L (0-35) 01/18/24 05:48
Alkaline Phosphatase 88 U/L (38-126) 01/18/24 05:48
Total Protein 4.5 g/dl (6.3-8.2) L 01/18/24 05:48
Albumin 2.0 g/dl (3.5-5.0) L 01/18/24 05:48
Physical Exam
-
NAD AAOx3
ABD: soft, ND, NTTP
midline incision with gauze dressing
DAKOTA with purulence but not much fluid
--- NOTE | 2024-01-21 10:49 | W.PN.HOSP.TC ---
Today's Communication/Plan
-
continue with antibiotics
Continue with IV Lasix and follow weights and electrolytes
Wean oxygen as able.
Assessment / Plan
Assessment / Plan
A/P:
Sigmoid diverticulitis with abscess:
-h/o diverticulosis/diverticulitis
-s/p abscess drainage 12/25/23 by IR. E. coli and Enterococcus Raffinosus on 01/12 wound cultures.
-with findings of massively distended right colon including the cecum on CT scan of the abdomen pelvis on January 03, 2024 the patient was taken to the OR for Exploratory laparotomy, takedown splenic flexure, creation end colostomy, omentectomy
-ID changing IV meropenem back to Zosyn since 01/15.
-IV Dilaudid PRN (was on dilaudid [employer] prior)
-Status post IR drain on 01/12.
-Follow-up repeat blood cultures for recurrent fevers since 01/12 but so far no growth but initial wound cultures growing E. coli and Enterococcus Raffinosus
-Low residue diet per surgery
- Rpt CT A/P 01/19 noted -No new surgical interventions planned
Leukocytosis:
Afebrile
Continue current antibiotics per ID
Continue to trend .
PICC discontinued as one of the concern of leukocytosis.
Acute hypoxic respiratory insufficiency:
Now off of high flow oxygen for increased PEEP--> now down to 5 L of oxygen.
Continue to titrate oxygen as able.
Chest x-ray on 01/12 persistent moderate left pleural effusion-->Taken for possible thoracentesis on 01/10 but not enough fluid to be tapped. Discussed again with IR on 01/14 and not enough fluid.
Pulmonary following
Weight gain of 27 pounds noted over this admission. .BNP very high. Improving weight and oxygenation. Continue with the diuretics.
Left pleural effusion s/p tap 01/19 - exudative - await cx data
Abnormal EKG-patient now has poor R waves in the anterior leads and also T wave inversion. Echo also showed low normal EF of 50%. Appreciate cardiology input.
Dyskinetic movements/Restless Legs:
-Psychiatry and neurology have decided to start her on Ingrezza. Seems to be working well.
-Also started on amantadine.
-Stopped Requip and Neupro patch
-Started melatonin
-Remains on trazodone 100 mg as needed, Flexeril as needed, Dilaudid as needed, and Depakote and psych discussed with outpatient psychiatrist who felt she did not have manic episode but patient decided to continue Depakote. Depakote doses have been
decreased with the possibility of discontinuing altogether in the near future.
-Seroquel stopped as Vfend increases serum concentration of Seroquel.
-Avoid antidopaminergic agents as much as possible
Thrombosis left upper extremity:
Superficial thrombosis in the left basilic vein (no DVT)
On Lovenox 40 mg daily for prevention DVT and will be enough for above plus local care.
PICC dced 01/19
Acute blood loss anemia:
-Aim to keep H&H more than 7. Follow blood work.
-s/p 3U pRBCs
Other problems:
h/o pulmonary Aspergillus: since Apr 2023. cont Vfend.
Hyperkalemia, resolved
HLD
GERD: cont PPI
Anxiety/depression: Continue Trazodone PRN/Prozac/Depakote. Seroquel stopped by psych.
FULL/Lovenox
Dispo-keep in IMU
DW RN
Total time spent on today's encounter was 52 minutes which included time spent in counseling the patient/family regarding diagnosis and treatment plan as listed above, goals of care, and symptom management. Case was discussed with nursing staff,
specialists. All labs and imaging personally reviewed by me. Remainder the time spent in detailed review of previous records, lab data, imaging, and other medical provider documentation.
Anticipated Discharge: > 48 hours
Subjective/Interval History
-
Date of Service: January 21, 2024
Feeling improved with the breathing.
Tolerating diet.
Objective Data
-
Labs:
Laboratory Results
01/21/24
10:01
Sodium 134 L
Potassium 3.7
Chloride 83 L
Carbon Dioxide 46 H
BUN 9
Creatinine 0.4 L
Glucose 99
Calcium 8.2 L
Vital Signs:
Vital Signs
Temp Pulse Resp BP Pulse Ox
98.3 F 77 16 128/78 96
01/21/24 07:15 01/21/24 09:48 01/21/24 07:17 01/21/24 09:48 01/21/24 10:11
I&O
01/20/24 01/21/24 01/22/24
06:59 06:59 06:59
Intake Total 520 / 520 1120 / 1120 420 / 420
Output Total 1958 / 1958 3273 / 3273
Balance -1439 / -1439 -2153 / -2153 420 / 420
Review of Systems
-
Constitutional: Denies Fever
Cardiac: Denies Chest Pain
Neuro: Denies Dizzy
Physical Exam
-
General: No Apparent Distress
HEENT: Moist Mucous Membranes
Respiratory: Clear to Auscultation
Cardiac: Regular Rhythm and S1/S2
GI: Soft, Nontender, Ostomy and Other (priscila drain)
Musculoskeletal: Edema, Right Lower Extrem and Edema, Left Lower Extrem (Improved BL)
Neuro: AO x 3
Psych: Calm; Negative Confused
Data Reviewed
-
Labs: Labs Reviewed by me
[2024-01-21] MEDS: ZOFRAN 4 MG IV (13:53)
--- NOTE | 2024-01-21 15:32 | W.PN.UPDATE ---
Update Note
Progress Note Update
patient seen chart reviewed. discussed with nursing. despite the travails of the past several days including colostomy patient appears much better cognitively 'i almost feel like myself.' she was able to carry on a logical conversation about her
stay here and reminded me she has been here almost a month. the ingrezza seems to have helped the TD considerably. patient's feet still moving but she says the level of movement at this point is tolerable. hopefully with time it will subside for
the most part. she was on antipsychotics for a short time yet developed TD. she should not be placed on antipsychotics again except for clozaril which does not cause td. will research the cost of ingrezza and how to get it for her if the cost is
high to make sure she can get it at [place]. will follow
[2024-01-21] MEDS: SINGULAIR 10 MG PO (16:58)
[2024-01-21] MEDS: LOVENOX 40 MG SC (16:58)
--- NOTE | 2024-01-21 19:00 | PTCARENOTE ---
Unable to verify VS prior to 190
[2024-01-21] MEDS: MELATONIN 5 MG PO (21:27)
[2024-01-22] VITALS (12 sets, daily range): BP systolic 89–145; BP diastolic 39–105; PULSE 83; O2SAT 96; BMI 30.9
--- NOTE | 2024-01-22 01:18 | PTCARENOTE ---
Pt received from previous shift OOB --> chair. AAOx3, slow speech, somewhat flat affect. Telemetry = SR w/PVCs. Full physical assessment documented (refer to worklist). OOB x1 w/assist --> BSC. Medicated with IV dilaudid per MD order, offered
PO janie - pt declined. Assisted w/hygiene (bathing cloths, gown change, brushed teeth). Abdominal wound care completed. 2 JPs flushed per orders. #20 RAC INT patent. Call richard within reach. Plan of care ongoing.
[2024-01-22] MEDS: DILAUDID 0.5 MG IV ×2 (03:04→20:19)
[2024-01-22 03:53] LABS: Hematocrit 22.6 % (37.0-47.0); Hemoglobin 7.5 g/dL (12.0-16.0); Mean Corp Hgb Conc. 33.2 g/dL (33.0-37.0); Mean Corpuscular Hgb 29.1 pg (27.0-31.0); Mean Corpuscular Volume 87.6 fL (81.0-99.0); Mean Platelet Volume 8.8 fL (7.4-10.4); Platelet Count 499 10^3/uL (130-400); Red Blood Cell Count 2.58 10^6/uL (4.20-5.40); Red Cell Dist. Width 17.4 % (11.5-14.5)
[2024-01-22 04:20] LABS: Blood Urea Nitrogen 11 mg/dl (7-17); Calcium 8.2 mg/dl (8.4-10.2); Chloride 84 mmol/L (98-107); Estimated Creatinine Clearance > 125 ml/min; Glucose 96 mg/dl (70-99); Potassium 3.6 mmol/L (3.5-5.1); Sodium 132 mmol/L (135-145); eGFR > 60.00
[2024-01-22 04:41] LABS: Carbon Dioxide 44 mmol/L (22-30)
[2024-01-22] MEDS: ZOSYN 50 IV ×4 (06:01→23:04)
[2024-01-22] MEDS: DUONEB 3 ML INH ×3 (07:43→20:41)
--- NOTE | 2024-01-22 09:06 | W.PN.ID1 ---
Date of Service
Date of Service: January 22, 2024
Today's Communication
Continue abx. See below.
Assessment / Plan
Diverticular abscess
- s/p IR drainage (12/25/23)
- s/p exploratory lap, colostomy (01/03/24)
- s/p IR drainage perisplenic fluid (01/13/24)
Leukocytosis
- persists
Hx Pulmonary aspergillosis; on Vfend as outpatient.
Recurrent diverticulitis
Anxiety/depression
Hx steroid-induced psychosis
GERD
Asthma
Recommendations:
Left upper quadrant abscess; s/p IR drainage 01/13/2024. Cultures E. coli (zosyn sensitive), Enterococcus raffinosus (amp. sensitive)
Repeat CT revealed near complete drainage of left upper quadrant collection. A large left-sided pleural effusion is noted.
Leukocytosis improved today.
Continue Zosyn (d#30 abx)
At D/C, will transition to amoxcillin / cefdinir.
Continue to monitor white count and temperature curve.
HIV serology pending. Patient has given verbal consent.
Continue with voriconazole (suspect for ABPA)
����������������������������������������������������������
Chief Complaint
-: Leukocytosis and Other (Diverticulitis; diverticular abscess)
Subjective / Review of Systems
Review of Systems: No Fever and No Chills
Vital Signs / Physical Exam
Vital Signs
Vital Signs
Temp Pulse Resp BP Pulse Ox
98.2 F 87 19 122/61 96
01/22/24 03:30 01/22/24 08:06 01/22/24 08:06 01/22/24 08:06 01/22/24 08:43
Physical Exam
Constitutional: No Acute Distress, Comfortable and Non-toxic
Eyes: Sclera Anicteric
Cardiovascular: S1/S2; Negative S3/S4
Pulmonary: Clear; Negative Wheezes, Rales or Rhonchi
Gastrointestinal: Soft, Non Tender, Non Distended, Normal Bowel Sounds and Other (DAKOTA in place)
Genito-Urinary: Negative Calles
Extremities: Negative Edema, Cyanosis or Erythema
Skin: Negative Rash or Jaundice
Neurological: Awake, Alert and AO x 3
Psychological: Calm
Objective Data
Lab Data
Lab Results
01/22/24 03:29
01/22/24 03:29
PT 15.3 Sec (11.4-14.6) H 01/06/24 15:22
INR 1.21 01/06/24 15:22
APTT 35.6 Sec (23.4-35.0) H 01/06/24 15:22
Estimated Creat Clear > 125 ml/min 01/22/24 03:29
Lactic Acid Cancelled 01/04/24 09:00
Total Bilirubin 0.5 mg/dl (0.2-1.3) 01/18/24 05:48
AST 26 U/L (14-36) 01/18/24 05:48
ALT < 10 U/L (0-35) 01/18/24 05:48
Alkaline Phosphatase 88 U/L (38-126) 01/18/24 05:48
Most recent labs reviewed.
Micro Results:
01/20/24 14:44 Body Fluid Culture - Preliminary
Pleural Fluid No Growth After 18-24 Hours
Gram Stain - Preliminary
01/13/24 20:22 Blood Culture - Final
Blood/Venous No Growth - Final Report
01/13/24 18:56 Blood Culture - Final
Blood/Venous No Growth - Final Report
01/15/24 10:08 Respiratory Culture - Final
Sputum Gram Stain - Final
01/13/24 13:00 Wound Culture - Final
Abscess Enterococcus raffinosus
Escherichia coli
Gram Stain - Final
01/09/24 14:28 Nasal Screen MRSA (PCR) - Final
Nose MRSA not detected - performed by PCR methodology.
12/26/23 14:43 Blood Culture - Final
Blood/Venous No Growth - Final Report
12/26/23 12:59 Blood Culture - Final
Blood/Venous No Growth - Final Report
12/25/23 17:30 Wound Culture - Final
Abscess Escherichia coli
Escherichia coli#2
Streptococcus species
Group F Streptococcus
Gram Stain - Final
Wound/abscess/other Cult Final 12/28/23-08
Many 1st strain Escherichia coli
Few 2nd strain Escherichia coli
Many Streptococcus species of two morphotypes
Moderate Group F Streptococcus*
1. Escherichia coli
M.I.C. RX
--------- ---
Amoxicillin/Potas. Clavulanate 16/8 I
Ampicillin >16 R
Ampicillin/Sulbactam >16/8 R
Cefazolin >16 R
Cefepime <=2 S
Ceftazidime <=1 S
Ceftriaxone <=1 S
Ertapenem <=0.5 S
Ciprofloxacin <=0.25 S
Gentamicin >8 R
Levofloxacin <=0.5 S
Meropenem <=1 S
Piperacillin/Tazobactam <=16 S
Tobramycin 8 I
Trimethoprim/Sulfamethoxazole >2/38 R
2. Escherichia coli#2
M.I.C. RX
--------- ---
Amoxicillin/Potas. Clavulanate <=8/4 S
Ampicillin >16 R
Ampicillin/Sulbactam >16/8 R
Cefazolin 16 R
Cefepime <=2 S
Ceftazidime <=1 S
Ceftriaxone <=1 S
Ertapenem <=0.5 S
Ciprofloxacin <=0.25 S
Gentamicin <=4 S
Levofloxacin <=0.5 S
Meropenem <=1 S
Piperacillin/Tazobactam <=16 S
Tobramycin <=4 S
Trimethoprim/Sulfamethoxazole >2/38 R
Imaging:
01/12/2024 CT abdomen/pelvis with contrast: There is a focal predominantly fluid collection in the left upper quadrant, which contains an anterior air-fluid level, compatible with an abscess. This has increased compared to examination of January 07,
2023. Of note, this collection is along the anterior margin of the spleen, without a well-defined plane between the collection and the spleen. There is also an irregular fluid collection within the left pelvis as described, and superimposed
infection of this collection cannot be excluded. There is a pigtail catheter in the left posterior pelvis, entering to the left gluteal region, with no evidence of a collection adjacent to this catheter. Subcutaneous edema, greater in both flanks.
Bilateral pleural effusions, left greater than right. Parenchymal opacity within both lower lobes, greater on the left compared to the right. This is most likely atelectasis, although underlying pneumonia difficult to completely exclude
radiographically.
01/03/2024 CT abdomen/pelvis: Markedly decreased posterior true pelvis abscess in comparison to prior pre-op chest drainage study with pigtail drainage catheter seen in the soft tissues of the left posterior true pelvis. Massively distended right
colon including cecum (cecum measuring up to 12 cm) with marked maximal colonic stool as well as gaseous distention of transverse and proximal descending colon, moderate stool with distention of the distal descending and sigmoid colon, limited in
evaluation without oral contrast opacification. Thickening Of the wall of the distal descending and proximal sigmoid colon which could represent colitis or diverticulitis. Partially obstructing distal colonic mass with inflammation cannot be
excluded. No free air. Please see full dictation for additional detail.
[2024-01-22] MEDS: NON-FORMULARY ITEM 1 UNIT PO (09:11)
[2024-01-22] MEDS: VITAMIN D3 (cholecalciferol) 25 MCG PO (09:12)
[2024-01-22] MEDS: SYMMETREL 100 MG PO ×2 (09:12→20:21)
[2024-01-22] MEDS: VFEND 200 MG PO ×2 (09:12→21:32)
[2024-01-22] MEDS: KCL 20 MEQ PO (09:12)
[2024-01-22] MEDS: PROTONIX IV 40 MG IV (09:13)
[2024-01-22] MEDS: PROZAC 20 MG PO (09:13)
[2024-01-22] MEDS: FOLVITE 1 MG PO (09:13)
[2024-01-22] MEDS: LASIX 40 MG IV ×2 (09:13→15:34)
[2024-01-22] MEDS: NSS (PRESERVATIVE FREE) 10 ML IV (09:13)
--- NOTE | 2024-01-22 09:20 | W.PN.PUL3 ---
Today's Communication / Plan
-
s/p thora, fluid suggestive of parapneumonic process, continue IV abx
can assess if SOB worsens for therapeutic thora
she remains on 3l NC, wean as tolerated
encouraged OOB/IS, PT/OT
continue further postop care
Assessment
-
53-year-old female with past medical history of recurrent diverticulitis, pulmonary aspergillosis, hyperlipidemia, anxiety/depression, and GERD who presents with abdominal pain. She apparently was recently treated for diverticulitis in October 2023
with Augmentin at [facility] in [place] where she resides. She also reported that she was treated this month for ongoing fungal lung infection with Aspergillus and also given additional antibiotics but unknown what names of these
medications are. She developed a fever about 5 days ago and continues to be on Augmentin for last 3 days. She was visiting her mother in [place] prior to arrival when the pain in her left lower quadrant became severe so she came here to the
hospital for further care. She was afebrile in the ER to 98.6 �F, 79 pulse rate, breathing at 16 breaths/min, normotensive at 133/77 and saturating 100% on room air. Labs showed leukocytosis to 21.2, mild anemia to 11.5, mild hyponatremia to 134,
mild hyperkalemia to 5.6, and negative lipase of <10. CT A/P on admission showed severe sigmoid diverticulitis with large pericolonic abscess. She was given pain medications in the ER + Levaquin + IV fluids with NS x1L, and admitted to the
hospitalist service with general surgery consulted and antibiotics were started with Zosyn. She underwent IR CT-guided drainage on 12/24 with 170 cc of pale green purulent material seen - this later grew E. coli and group F Streptococcus. Patient
continues to be managed on the floor and was having issues with constipation. Repeat CT A/P performed on 01/02 showing decrease size in the abscess with pigtail drainage catheter seen in place, with massively distended right colon including the
cecum with stool distention and continued suspected distal descending colon/sigmoid diverticulitis. Given patient's worsening pain with distention and no flatus or BM in about 4 days, patient underwent exploratory laparotomy with splenic flexure
takedown, creation of end colostomy and omentectomy on 01/03/2024, and transferred to the ICU postoperatively. There was 150 cc of EBL and no immediate complications. Patient was stabilized and sent to the floor and pulmonary was reconsulted
01/12/2024 with ongoing hypoxemia.
Impression:
#Sigmoid diverticulitis s/p exploratory laparotomy with splenic flexure takedown, end colostomy creation and omentectomy � OR date: 01/12/2024
#Sigmoid diverticulitis c/b large pericolonic abscess s/p IR CT-guided drainage on 12/24 with purulent fluid growing E. coli + group F Streptococcus
#Constipation
#Leukocytosis
#Chronic anemia (unknown baseline but she has been between 8.5�11.5g/dL since admission)
#Lower lobe pulmonary bronchiectasis � likely due to her history of chronic pulmonary aspergillosis diagnosed in fall 2022
#History of pulmonary aspergillosis on voriconazole
Pleural effusion status post thoracentesis 01/20/2024
Plan:
Respiratory status improved after thoracentesis 01/20/2024
Supplemental oxygen as needed-currently on 3 L/min mid flow-attempt to wean
Aspiration precautions
Incentive spirometry encouraged
Acapella
Mucus clearing devices
DuoNebs TID + budesonide BID
Singulair continues
Note that the patient takes Breo as an outpatient
Radiographs summarized below
Chest x-ray with significant increase in what appears to be pleural fluid from 01/13/2024 through 01/19/2024
Dr[address] Paulson contacted interventional radiology for thoracentesis 01/20/24--1000 mL clear yellow pleural fluid
Chest x-ray 01/20/2024-no pneumothorax, small to moderate residual left pleural effusion significantly decreased
Cell count: pH 7.37 - wbc 561 - glu 35 - tp 3.1 - 4123 -- exudative, likely parapneumonic; superimposed pseudoexudate from diuresis cannot be ruled out
Culture negative to date, path pending
Can likely recheck CXR over weekend to assess if further tap is needed
Upper right extremity ultrasound 01/20/2024-no evidence for DVT
Cultures reviewed
Continue antibiotics - pt was on Zosyn (started 12/24/2023) and then changed to Meropenem on 01/13, and as of 01/15 she is back on Zosyn
Infectious disease following-correspondence reviewed
Left upper quadrant collection-IR drainage 01/14/2024
Continue voriconazole for her history of pulmonary aspergillosis
Follow leukocytosis
Continue diuresis as tolerated--2.4 L on 01/20/2024 and -733 mL on 01/21/2024
Monitor renal function, electrolytes, intake/output, lower extremity edema and weight
Replace electrolytes as needed
Cardiology following-correspondence reviewed-continue with IV diuresis
Surgery following-correspondence reviewed
Patient is scheduled for an interventional radiology drain exchange 01/18/2024
Low residual diet per surgery
CT abdomen 01/12/2024-fluid collection left upper quadrant contains anterior air-fluid level compatible with abscess increased compared to 01/08/2024, irregular fluid collection within left pelvis and superimposed infection of this collection cannot be
excluded, pigtail catheter in posterior pelvis no evidence of collection in this area, bilateral pleural effusions left greater than right most likely atelectasis
Nasogastric tube per surgery
She is on a low residue diet and seems to be tolerating it well
Intermittent CT abdomen to follow-up on collections
Neurology following-correspondence reviewed
Restless legs still an issue-improved
Rotigotine patch now off
Continue amantadine and Ingrezza and remains Rotigotine
DVT prophylaxis-on Lovenox
GI prophylaxis-on Protonix (she takes pantoprazole at home)
Nutrition per surgery
Patient will require skilled rehab upon discharge
Reviewed with nursing as well as respiratory therapy as well as Dr. Sanz
Outpatient pulmonary follow-up -she has a retort forker as well as an ID doctor in [place], [place], and I advised her to follow-up with those specialists once she is discharged.
Data:
Chest x-ray 01/13/2024-moderate left pleural effusion which is stable and left lower lobe infiltrate concerning for pneumonia also stable
Chest ultrasound 01/11/2024-small to moderate pleural effusion, thoracentesis canceled-not enough fluid for evacuation
Chest x-ray 01/19/2024-large left pleural effusion
Chest x-ray 01/20/2024-large left pleural effusion not significantly changed, borderline pulmonary edema with cephalization
Echo 01/19/2024: EF 50%, stage I DD, mild TR, PAP 35 to 40 mmHg, mild VT, pleural effusion present, trivial pericardial effusion. IVC is moderately dilated
Subjective Data
-
Date of Service:
Date of Service: January 22, 2024
Chief Complaint: Pulmonary Follow Up and Dyspnea Follow Up
Subjective:
doing better today, less SOB since thora but overall deconditioned
sitting in chair
no new complaints
Objective Data
Data Reviewed
Vital Signs / I&O / Oxygen:
Vital Signs
Temp Pulse Resp BP Pulse Ox
98.2 F 87 19 122/61 96
01/22/24 03:30 01/22/24 08:06 01/22/24 08:06 01/22/24 08:06 01/22/24 08:43
Intake and Output
01/21/24 01/22/24 01/23/24
06:59 06:59 06:59
Intake Total 1120 / 1120 1590 / 1590
Output Total 3273 / 3273 1465 / 1465
Balance -2153 / -2153 125 / 125
SaO2 96
Nasal Cannula flow liters per 3
minute
Physical Exam
General: Respiratory Distress (n), Comfortable, Chills (negative) and Other (deconditioned appearance)
HEENT: Normocephalic, Anicteric and Moist Mucous Membranes
Cardiovascular: Regular Rhythm and Peripheral Edema (+2 lower extremity pitting edema bilaterally)
Respiratory: Clear (on R), Non-Labored Respirations, Accessory Resp Muscle Use (n), Stridor (n) and Other (dullness on L, up to mid-thorax)
GI: Soft, Distended and Tender
Neurology: Awake, Alert, Oriented, AO x 3 and Tremors (n)
Skin: Warm, Dry, Cyanosis (n) and Jaundice (n)
Labs/Micro/Reports
Lab Data
01/22/24 03:29
01/22/24 03:29
Microbiology
01/20/24 14:44 Pleural Fluid Body Fluid Culture - Preliminary
No Growth After 18-24 Hours
01/20/24 14:44 Pleural Fluid Gram Stain - Preliminary
[2024-01-22] MEDS: ROXICODONE 5 MG PO ×3 (09:21→23:03)
--- NOTE | 2024-01-22 09:55 | W.PN.GS2 ---
Today's Communication / Plan
-
Continue drains and LRD
Assessment / Plan
-
Assessment: 53 yo female with recent aspergillus pneumonia on home O2 and on recent steroids presenting with complicated diverticulitis with large pelvic abscess, failed initial nonoperative management now status post Garcia's procedure.
12/25/2023 s/p IR drainage of abscess cx with 2 strep species and 2 species of e.coli noted
01/03/2024 s/p exploratory laparotomy with takedown of splenic flexure, creation end colostomy with omentectomy
01/13/2024 s/p IR drain post op perisplenic fluid collection 01/14/24 cx with enterococcus/e. coli.
Off TPN since 01/12, on LRD
AFVSS
Leukocytosis persistently elevated but trending down
followup CT 01/19 without new abdominal collection and prior collections resolving; large left pleural effusion ->thoracentesis with IR 01/19
Plan: Cont low residue diet and encourage PO intake/supplements; okay for family to bring in food/supplements from home.
Pain control: Tylenol, Oxycodone, IV Dilaudid PRN
Continue IV abx per ID recs
Ostomy teaching
Continue drains x3 to bulb suction Flush IR drains x2 daily.
Daily dressing changes to midline incision, dry gauze packing to open area in middle of wound
DVT: SCDs as tolerated. Lovenox sq
GI: IV PPI
Subjective Data
-
Date of Service: January 22, 2024
Patient seen and examined at bedside with Dr. Stahl. Denies n/v. Tolerating diet, poor appetite still. Feeling overall better since thoracentesis. Less shoulder pain. Abdominal pain gradually improving.
Objective Data
-
Intake and Output
01/21/24 01/22/24 01/23/24
06:59 06:59 06:59
Intake Total 1120 / 1120 1590 / 1590
Output Total 3273 / 3273 1465 / 1465
Balance -2153 / -2153 125 / 125
Intake:
Oral fluids 960 / 960 1380 / 1380
IV fluids (Total) 50 / 50
IV piggybacks 100 / 100 200 / 200
Amount instilled into Drain (
Total)
Left Lower Sacrum Cole-Olmos
A Placed in IR
Left Upper Abdomen Placed in IR
Output:
Drain Output (Total)
Left Abdomen Cole-Olmos
Left Lower Sacrum Cole-Olmos /
A Placed in IR
Left Upper Abdomen Placed in IR
Urine, Voided 3250 / 3250 1450 / 1450
Other:
Number of approximated SMALL 1
amounts of urine
Number of approximated MODERATE 1
amounts of urine
Number of approximated LARGE 1 1
amounts of urine
Vital Signs
Temp Pulse Resp BP Pulse Ox
98.5 F 87 19 122/61 96
01/22/24 07:22 01/22/24 08:06 01/22/24 08:06 01/22/24 08:06 01/22/24 08:43
Lab Results
01/22/24 03:29
01/22/24 03:29
Calcium 8.2 mg/dl (8.4-10.2) L 01/22/24 03:29
Phosphorus 3.4 mg/dl (2.5-4.5) 01/18/24 05:48
Magnesium 2.0 mg/dl (1.6-2.3) 01/18/24 05:48
Total Bilirubin 0.5 mg/dl (0.2-1.3) 01/18/24 05:48
AST 26 U/L (14-36) 01/18/24 05:48
ALT < 10 U/L (0-35) 01/18/24 05:48
Alkaline Phosphatase 88 U/L (38-126) 01/18/24 05:48
Total Protein 4.5 g/dl (6.3-8.2) L 01/18/24 05:48
Albumin 2.0 g/dl (3.5-5.0) L 01/18/24 05:48
Physical Exam
-
NAD AAOx3
ABD: soft, ND, NTTP
midline incision with intact heaven, open area just above umbilicus with ssf draining
DAKOTA with purulence x2 but not much fluid, Gluteal IR drain with very minimal serous fluid
--- NOTE | 2024-01-22 09:59 | WOUNDNOTE ---
WOC RN note: Patient sitting in chair. Instructed patient how to empty and change colostomy appliance using [place] wafer # [id number], Kelly seal and [place] pouch # [id number]. Piece of silver alginate applied to mucocutaneous separation under Kelly
seal as last time. Stoma pink and functioning for soft loose brown stool. Peristomal skin intact. Ostomy supplies in room. Next appliance change due Thursday. Plan is SNF when transferred.
--- NOTE | 2024-01-22 10:23 | W.PN.HOSP.TC ---
Addendum entered and electronically signed by Yung Sanz MD 01/22/24 10:33:
Wt down to her baseline of 203 pounds. She is becoming alkalotic. DC IV Lasix and add on p.o. Lasix and follow closely .
Original Note:
Today's Communication/Plan
-
Tx to tele
Assessment / Plan
Assessment / Plan
A/P:
Sigmoid diverticulitis with abscess:
-h/o diverticulosis/diverticulitis
-s/p abscess drainage 12/25/23 by IR. E. coli and Enterococcus Raffinosus on 01/12 wound cultures.
-with findings of massively distended right colon including the cecum on CT scan of the abdomen pelvis on January 03, 2024 the patient was taken to the OR for Exploratory laparotomy, takedown splenic flexure, creation end colostomy, omentectomy
-cw abx/ Zosyn per ID
-Status post abdominal drain on 01/12.
-Follow-up repeat blood cultures for recurrent fevers since 01/12 but so far no growth but initial wound cultures growing E. coli and Enterococcus Raffinosus
-Low residue diet per surgery
- Rpt CT A/P 01/19 noted -No new surgical interventions planned
Leukocytosis:
Afebrile
Continue current antibiotics per ID
Continue to trend .
PICC discontinued as one of the concern of leukocytosis.
Improving.
Acute hypoxic respiratory insufficiency:
Now off of high flow oxygen for increased PEEP--> now down to 3 L of oxygen.
Continue to titrate oxygen as able.
Chest x-ray on 01/12 persistent moderate left pleural effusion-->Taken for possible thoracentesis on 01/10 but not enough fluid to be tapped. Discussed again with IR on 01/14 and not enough fluid.
Pulmonary following
Weight gain of 27 pounds noted over this admission. .BNP very high. Improving weight and oxygenation. Continue with the diuretics.
Left pleural effusion s/p tap 01/19 - exudative - cx neg so far
Abnormal EKG-patient now has poor R waves in the anterior leads and also T wave inversion. Echo also showed low normal EF of 50%. Appreciate cardiology input.
Dyskinetic movements/Restless Legs:
-Psychiatry and neurology have decided to start her on Ingrezza. Seems to be working well. Pt feeling improved from her movements standpiont.
-Also started on amantadine.
-Stopped Requip and Neupro patch
-Started melatonin
-Remains on trazodone 100 mg as needed, Flexeril as needed, Dilaudid as needed; psych discussed with outpatient psychiatrist who felt she did not have manic episode but patient decided to continue Depakote. Depakote now discontinued .
-Seroquel stopped as Vfend increases serum concentration of Seroquel.
-Avoid antidopaminergic agents as much as possible
Thrombosis left upper extremity:
Superficial thrombosis in the left basilic vein (no DVT)
On Lovenox 40 mg daily for prevention DVT and will be enough for above plus local care.
PICC dced 01/19
Acute blood loss anemia:
-Aim to keep H&H more than 7. Follow blood work.
-s/p 3U pRBCs
Other problems:
h/o pulmonary Aspergillus: since Apr 2023. cont Vfend.
Hyperkalemia, resolved
HLD
GERD: cont PPI
Anxiety/depression: Continue Trazodone PRN/Prozac/Depakote. Seroquel stopped by psych.
FULL/Lovenox
Dispo-Tx to tele
CW PT/OT eval/tx
Anticipated Discharge: > 48 hours
Subjective/Interval History
-
Date of Service: January 22, 2024
Feeling improved in general as well as improved with her breathing.
Objective Data
-
Labs:
Laboratory Results
01/22/24
03:29
WBC 18.0 H
Hgb 7.5 L
Hct 22.6 L
Plt Count 499 H
Sodium 132 L
Potassium 3.6
Chloride 84 L
Carbon Dioxide 44 H
BUN 11
Creatinine 0.5 L
Glucose 96
Calcium 8.2 L
Vital Signs:
Vital Signs
Temp Pulse Resp BP Pulse Ox
98.5 F 87 19 122/61 96
01/22/24 07:22 01/22/24 08:06 01/22/24 08:06 01/22/24 08:06 01/22/24 08:43
I&O
01/21/24 01/22/24 01/23/24
06:59 06:59 06:59
Intake Total 1120 / 1120 1590 / 1590
Output Total 3273 / 3273 1465 / 1465
Balance -2153 / -2153 125 / 125
Review of Systems
-
Constitutional: Denies Fever
Respiratory: Denies Trouble Breathing
Cardiac: Denies Chest Pain
Abdomen/GI: Denies Nausea or Vomiting
Neuro: Denies Dizzy
Physical Exam
-
General: No Apparent Distress
HEENT: Moist Mucous Membranes
Respiratory: Clear to Auscultation; Negative Wheezes
Cardiac: Regular Rhythm and S1/S2
GI: Soft, Nontender, Normal Bowel Sounds, Ostomy and Other (priscila drain )
Neuro: AO x 3
Psych: Calm; Negative Confused or Agitated
Data Reviewed
-
Labs: Labs Reviewed by me
--- NOTE | 2024-01-22 11:26 | W.PN.CARDCBS ---
Addendum entered and electronically signed by Bruce Gerber MD 01/22/24 14:32:
She feels much better PMH/PSH/FH/SH: Reviewed
Allergies: None
Outpatient cardiac meds: Aspirin 81 mg today
Current meds DuoNebs, Singulair, Vfend, subcu Lovenox, Ingrezza, amantadine, Zosyn, furosemide 40 IV twice daily, pantoprazole, vitamin D, fluoxetine 20 mg a day, folate, potassium 20 mill equivalents daily
ROS: Negative except as above
122/61, pulse 87, afebrile, weight is 92.2 kg down 0.8 kg, peak weight was 97.9 kg, weight on admission was 85.5 kg, intake and output roughly identical, head neck exam unremarkable, lungs are clear, regular rate and rhythm without obvious murmurs
JVD okay, abdomen benign, extremities with minimal edema at this time, neuro nonfocal musculoskeletal intact
White count 18, hemoglobin 7.5, stable platelets 499, sodium 132, potassium 3.6, BUN' creatinine 11 and 0.5, HIV pending, proBNP 01/18/24 12,800, albumin is 2, 3 albumin is less than 3
Pleural fluid is exudative but culture negative so far
Plan:
Overall she looks much better but is still almost 7 kg above dry weight, sodium is marginal but I would favor continuation of IV Lasix for another 24 to 48 hours.
Continue to monitor potassium and sodium.
In her case, SGLT2 inhibitor, spironolactone, less important than in most cases of HFpEF.
Original Note:
Today's Communication / Plan
-
Would continue IV Lasix for another 24 hours before considering transition to oral Lasix
Wean oxygen as tolerated
Consider repeat chest x-ray in next 24 hours to reassess left pleural effusion
Continue to replete potassium, give additional 40 mEq x 1
Impression / Plan
-
PCP: Iva Benton
Psych Assistant: None prior to admission, initial consultation Dr. Carranza
Impression:
Presented 12/24/2023 with acute abdominal pain
Sigmoid diverticulitis with diverticular abscess
s/p IR drainage grew E. coli and group F Streptococcus (12/25/23)
s/p exploratory lap, colostomy (01/03/24)
s/p IR drainage perisplenic fluid (01/13/24)
Leukocytosis
Acute on chronic anemia
3 units PRBCs so far this admission
Superficial thrombosis of left basilic vein (no DVT)
Abnormal EKG
Acute hypoxic respiratory insufficiency
Left-sided pleural effusion
s/p Lt thoracentesis for 1 L 01/20/24
Acute HFpEF, proBNP 12,800
Hx Pulmonary aspergillosis voriconazole as outpatient
Bronchiectasis
Recurrent diverticulitis
Anxiety/depression
Hx steroid-induced psychosis
GERD
Asthma
Hyperlipidemia
Obesity
Spontaneous right carotid dissection discovered after ongoing migraine headaches in ~2021 Treated conservatively with DAPT
Restless legs syndrome
Tardive dyskinesia
Echo 01/19/2024: EF 50%, stage I DD, mild TR, PAP 35 to 40 mmHg, mild NH, pleural effusion present, trivial pericardial effusion. IVC is moderately dilated
Plan:
-Weight is down 3 lbs overnight and down 12 lbs from highest weight. However she continues to appear to be volume overloaded on examination. And weight remains up from admission weight.
-Would continue with Lasix 40 mg IV BID diuresis for at least another 24 hours prior to considering transition to oral Lasix.
-Creatinine stable at 0.5. Potassium 3.6. Continue to replete. Potassium 20 mEq ordered daily. Will give extra 40 mill equivalents x 1 now
-s/p left-sided thoracentesis for 1 L 01/20/24.
-Oxygen requirements have improved and are down to 3 Lpm; Wean as tolerated
-Consider repeat chest x-ray within next 24 to 48 hours as still decreased breath sounds at bases
-Eventual outpatient ischemic evaluation for anterolateral T wave changes on ECG 01/19/24
-Echo from 01/19/2024 with mildly reduced ejection fraction of 50%
-Tele reviewed occasional episodes of ventricular bigeminy, asymptomatic. Consider addition of low-dose beta-pili if blood pressure allows
-Hgb stable at 7.5. Patient has received a total of 3 units PRBCs this admission.
-Continue antibiotics and antifungal per ID
HPI: Patient is a 53-year-old female with past medical history significant for recurrent diverticulitis, pulmonary aspergillosis, hyperlipidemia, anxiety/depression, GERD and chronic anemia who presented to emergency department 12/24/2023 with acute
abdominal pain and fever. She was noted to have sigmoid diverticulitis with diverticular abscess and underwent IR drainage 12/25/2023. Due to constipation with distention and absent bowel sounds she underwent exploratory laparotomy with splenic
flexure takedown, creation of end colostomy and omentectomy on 01/03/2024. She underwent IR drainage of perisplenic fluid on 01/13/2024. Patient being followed closely by ID on antibiotics. Patient was n.p.o. for extended period of time and recently
advanced to low resolution diet. Patient received considerable volume throughout her hospitalization and has had 27 pound weight gain. Patient now with worsening shortness of breath, hypoxemia. Chest x-ray from 01/20/2024 shows large left pleural
fluid collection with indwelling left-sided chest tube and borderline pulmonary edema with cephalization of pulmonary vasculature. proBNP performed on 01/20/2024 noted to be elevated at 12,800. EKG performed on 01/19/2024 showed sinus rhythm with
new T wave abnormality in anterolateral leads which was not present on admission. She underwent an echocardiogram which demonstrated mildly reduced ejection fraction of 50% with elevated pulmonary pressures. Cardiology being asked to see patient
for concerns of acute heart failure and abnormal EKG.
Progress Note - Psych Assistant
Subjective
Date of Service: January 22, 2024
Patient seen and examined. Patient sitting up in chair. Patient reports her thinking is a lot clearer and she is feeling much better over the last 24 hours. Still short of breath and has lower extremity edema but denies chest pain or palpitation
Objective
Labs:
01/22/24 03:29
01/22/24 03:29
Labs
Hgb 7.5 g/dL (12.0-16.0) L 01/22/24 03:29
Hct 22.6 % (37.0-47.0) L 01/22/24 03:29
Plt Count 499 10^3/uL (130-400) H 01/22/24 03:29
PT 15.3 Sec (11.4-14.6) H 01/06/24 15:22
INR 1.21 01/06/24 15:22
APTT 35.6 Sec (23.4-35.0) H 01/06/24 15:22
Sodium 132 mmol/L (135-145) L 01/22/24 03:29
Potassium 3.6 mmol/L (3.5-5.1) 01/22/24 03:29
BUN 11 mg/dl (7-17) 01/22/24 03:29
Creatinine 0.5 mg/dL (0.6-1.0) L 01/22/24 03:29
Glucose 96 mg/dl (70-99) 01/22/24 03:29
Vital Signs and I&O:
Vital Signs
Temp Pulse Resp BP Pulse Ox
98.5 F 87 19 122/61 96
01/22/24 07:22 01/22/24 08:06 01/22/24 08:06 01/22/24 08:06 01/22/24 08:43
Vital Signs
Temp Pulse Resp BP Pulse Ox
98.5 F 87 19 122/61 96
01/22/24 07:22 01/22/24 08:06 01/22/24 08:06 01/22/24 08:06 01/22/24 08:43
Intake & Output
01/20/24 01/21/24 01/22/24 01/23/24
06:59 06:59 06:59 06:59
Intake Total 520 / 520 1120 / 1120 1590 / 1590
Output Total 1958 / 1958 3273 / 3273 1465 / 1465
Balance -1439 / -1439 -2153 / -2153 125 / 125
Physical Exam
Physical Exam
GEN: No distress, awake, Ox3, sitting in chair
HEENT: supple, anicteric, mmm
LUNGS: Decreased breath sounds at bases left greater than right CTA, no wheezes/rales; on 3 L of oxygen
CV: Reg, S1/S2, no murmur, rub or gallop
ABD: soft, BS+, NT/ND
EXT: +1-2 bilateral lower extremity pitting edema
NEURO: Gross non-focal, appears somewhat anxious
SKIN: No rash, warm, dry, pink
[2024-01-22] MEDS: KCL 40 MEQ PO (13:20)
--- NOTE | 2024-01-22 13:46 | W.PN.UPDATE ---
Update Note
Progress Note Update
patient seen chart reviewed. mental status continues to improve and she is turning her thoughts to things she needs to do to get life in order eg bills which got neglected during the period she was so ill. this is a good sign. she says that even
more than she yesterday she feels as though she is herself again. she was told she may be moving out of [place] another good sign for her. i am a bit concerned the ingrezza which is helping w td may hospitalist nocturnist physician to be too expensive her insurance or it
will need a prior auth. i told her i would get her ingrezza one way or another so if she is discharged before i return to next thursday please tiger text me so i can work on getting it to her. she should have more than two weeks of samples
from the supply i got for her.
--- NOTE | 2024-01-22 14:42 | PTCARENOTE ---
PT downgraded to tele. Report to receiving RN. Belongings collected from room. Transferred to [id number] via stretcher.
--- NOTE | 2024-01-22 15:25 | CM ---
Patient with Dx Sigmoid diverticulitis with abscess, s/p Ex lap with creation colostomy, anemia, dyskinetic movements. O2 3L. Receiving IV Abx, IV Lasix. DAKOTA drains. Seen by Psych. Seen by ostomy nurse. PT/OT; requires assist of 2, rec
skilled rehab. Per nurses notes; AAOx3, slow speech.
CM continuing to follow.
Plan follow up with [facility] for acceptance/bed availability when closer to d/c.
[2024-01-22] MEDS: LOVENOX 40 MG SC (17:16)
[2024-01-22] MEDS: SINGULAIR 10 MG PO (17:47)
[2024-01-22] MEDS: MELATONIN 5 MG PO (21:33)
[2024-01-23] VITALS (7 sets, daily range): BP systolic 120–157; BP diastolic 61–95; BMI 29.4
[2024-01-23] MEDS: DILAUDID 0.5 MG IV ×2 (02:19→12:54)
[2024-01-23] MEDS: ZOSYN 50 IV ×4 (05:14→23:29)
[2024-01-23 07:28] LABS: Hematocrit 21.8 % (37.0-47.0); Hemoglobin 7.1 g/dL (12.0-16.0); Mean Corp Hgb Conc. 32.6 g/dL (33.0-37.0); Mean Corpuscular Hgb 29.2 pg (27.0-31.0); Mean Corpuscular Volume 89.7 fL (81.0-99.0); Mean Platelet Volume 8.9 fL (7.4-10.4); Platelet Count 465 10^3/uL (130-400); Red Blood Cell Count 2.43 10^6/uL (4.20-5.40); Red Cell Dist. Width 17.6 % (11.5-14.5); White Blood Cell Count 16.3 10^3/uL (4.8-10.8)
[2024-01-23 07:58] LABS: Blood Urea Nitrogen 9 mg/dl (7-17); Calcium 8.1 mg/dl (8.4-10.2); Chloride 84 mmol/L (98-107); Estimated Creatinine Clearance > 125 ml/min; Glucose 88 mg/dl (70-99); Potassium 3.3 mmol/L (3.5-5.1); Sodium 132 mmol/L (135-145); eGFR > 60.00
[2024-01-23 08:09] LABS: Carbon Dioxide 41 mmol/L (22-30)
[2024-01-23] MEDS: DUONEB 3 ML INH ×3 (08:13→21:06)
[2024-01-23 08:22] LABS: HIV Combo Negative (Negative)
[2024-01-23] MEDS: KCL 40 MEQ PO ×2 (08:55→11:24)
[2024-01-23] MEDS: PROZAC 20 MG PO (08:55)
[2024-01-23] MEDS: NSS (PRESERVATIVE FREE) 10 ML IV (08:56)
[2024-01-23] MEDS: LASIX 40 MG IV ×2 (08:56→15:38)
[2024-01-23] MEDS: FOLVITE 1 MG PO (08:56)
[2024-01-23] MEDS: PROTONIX IV 40 MG IV (08:56)
[2024-01-23] MEDS: VITAMIN D3 (cholecalciferol) 25 MCG PO (08:56)
[2024-01-23] MEDS: NON-FORMULARY ITEM 1 UNIT PO (08:57)
[2024-01-23] MEDS: SYMMETREL 100 MG PO ×2 (08:57→20:21)
[2024-01-23] MEDS: VFEND 200 MG PO ×2 (08:59→21:23)
--- NOTE | 2024-01-23 09:15 | W.PN.GS2 ---
Today's Communication / Plan
-
No major changes.
PT OT, pulmonary rehab.
Anticipate possible discharge early to mid next week.
Assessment / Plan
-
Assessment: 53 yo female with recent aspergillus pneumonia on home O2 and on recent steroids presenting with complicated diverticulitis with large pelvic abscess, failed initial nonoperative management now status post Garcia's procedure.
12/25/2023 s/p IR drainage of abscess cx with 2 strep species and 2 species of e.coli noted
01/03/2024 s/p exploratory laparotomy with takedown of splenic flexure, creation end colostomy with omentectomy
01/13/2024 s/p IR drain post op perisplenic fluid collection 01/14/24 cx with enterococcus/e. coli.
Off TPN since 01/12, on LRD
AFVSS
Leukocytosis persistently elevated but trending down
followup CT 01/19 without new abdominal collection and prior collections resolving; large left pleural effusion ->thoracentesis with IR 01/19
Plan: Cont low residue diet and encourage PO intake/supplements; okay for family to bring in food/supplements from home.
Pain control: Tylenol, Oxycodone, IV Dilaudid PRN
Continue IV abx per ID recs
Ostomy teaching
Continue drains x2 to bulb suction Flush IR drains x2 daily.
Daily dressing changes to midline incision, dry gauze packing to open area in middle of wound
DVT: SCDs as tolerated. Lovenox sq
GI: IV PPI
Time Spent
Total Time Spent with Patient (in minutes): 20
Subjective Data
-
Date of Service: January 23, 2024
Interval Events:
No acute events overnight. Posterior drain 'fell out'. Otherwise, slept well. Pain Controlled. Denies Nausea/Vomiting, +bowel function. Tolerating diet.
Objective Data
-
Intake and Output
01/22/24 01/23/24 01/24/24
06:59 06:59 06:59
Intake Total 1590 / 1590 1479 / 1479
Output Total 1465 / 1465
Balance 125 / 125 1449 / 1449
Intake:
Oral fluids 1380 / 1380 1374 / 1374
IV piggybacks 200 / 200 100 / 100
Amount instilled into Drain (
Total)
Left Lower Sacrum Cole-Olmos
A Placed in IR
Left Upper Abdomen Placed in IR
Output:
Drain Output (Total)
Left Abdomen Cole-Olmos
Left Upper Abdomen Placed in IR
Urine, Voided 1450 / 1450
Other:
Number of approximated SMALL 1
amounts of urine
Number of approximated MODERATE 1 3
amounts of urine
Number of approximated LARGE 1 3
amounts of urine
Vital Signs
Temp Pulse Resp BP Pulse Ox
98.6 F 78 18 120/68 96
01/23/24 07:45 01/23/24 08:56 01/23/24 08:17 01/23/24 08:56 01/23/24 08:17
Lab Results
01/23/24 06:21
01/23/24 06:21
Calcium 8.1 mg/dl (8.4-10.2) L 01/23/24 06:21
Phosphorus 3.4 mg/dl (2.5-4.5) 01/18/24 05:48
Magnesium 2.0 mg/dl (1.6-2.3) 01/18/24 05:48
Total Bilirubin 0.5 mg/dl (0.2-1.3) 01/18/24 05:48
AST 26 U/L (14-36) 01/18/24 05:48
ALT < 10 U/L (0-35) 01/18/24 05:48
Alkaline Phosphatase 88 U/L (38-126) 01/18/24 05:48
Total Protein 4.5 g/dl (6.3-8.2) L 01/18/24 05:48
Albumin 2.0 g/dl (3.5-5.0) L 01/18/24 05:48
Physical Exam
-
GENERAL/NEURO: Awake, Alert, no distress
CHEST: Unlabored breathing on RA
ABDOMEN: Soft, Non-Tender, Non-Distended, midline incision with midline opening, stable granulation tissue. LLQ DAKOTA with purulence, left side IR drain serosanguineous.
[2024-01-23] MEDS: ROXICODONE 5 MG PO ×3 (09:24→21:29)
--- NOTE | 2024-01-23 10:22 | W.PN.ID1 ---
Date of Service
Date of Service: January 23, 2024
Today's Communication
Continue Zosyn (d#31 abx)
Assessment / Plan
Diverticular abscess
- s/p IR drainage (12/25/23)
- s/p exploratory lap, colostomy (01/03/24)
- s/p IR drainage perisplenic fluid (01/13/24)
Leukocytosis
-Improved today.
Hx Pulmonary aspergillosis; on Vfend as outpatient.
Recurrent diverticulitis
Anxiety/depression
Hx steroid-induced psychosis
GERD
Asthma
Recommendations:
Left upper quadrant abscess; s/p IR drainage 01/13/2024. Cultures E. coli (zosyn sensitive), Enterococcus raffinosus (amp. sensitive)
Repeat CT revealed near complete drainage of left upper quadrant collection. A large left-sided pleural effusion is noted.
Leukocytosis improved today.
Continue Zosyn (d#31 abx)
At D/C, will transition to amoxcillin / cefdinir.
Continue to monitor white count and temperature curve.
Continue with voriconazole (suspect for ABPA)
����������������������������������������������������������
Chief Complaint
-: Leukocytosis and Other (Diverticulitis; diverticular abscess)
Subjective / Review of Systems
Review of Systems: No Fever and No Chills
Vital Signs / Physical Exam
Vital Signs
Vital Signs
Temp Pulse Resp BP Pulse Ox
98.6 F 78 18 120/68 96
01/23/24 07:45 01/23/24 08:56 01/23/24 08:17 01/23/24 08:56 01/23/24 08:17
Physical Exam
Constitutional: No Acute Distress, Comfortable and Non-toxic
Eyes: Sclera Anicteric
Cardiovascular: S1/S2; Negative S3/S4
Pulmonary: Clear; Negative Wheezes, Rales or Rhonchi
Gastrointestinal: Soft, Non Tender, Non Distended, Normal Bowel Sounds and Other (DAKOTA's in place with purulent drainage.)
Genito-Urinary: Negative Calles
Extremities: Negative Edema, Cyanosis or Erythema
Skin: Negative Rash or Jaundice
Neurological: Awake, Alert and AO x 3
Psychological: Calm
Objective Data
Lab Data
Lab Results
01/23/24 06:21
01/23/24 06:21
PT 15.3 Sec (11.4-14.6) H 01/06/24 15:22
INR 1.21 01/06/24 15:22
APTT 35.6 Sec (23.4-35.0) H 01/06/24 15:22
Estimated Creat Clear > 125 ml/min 01/23/24 06:21
Lactic Acid Cancelled 01/04/24 09:00
Total Bilirubin 0.5 mg/dl (0.2-1.3) 01/18/24 05:48
AST 26 U/L (14-36) 01/18/24 05:48
ALT < 10 U/L (0-35) 01/18/24 05:48
Alkaline Phosphatase 88 U/L (38-126) 01/18/24 05:48
Most recent labs reviewed.
Micro Results:
01/20/24 14:44 Body Fluid Culture - Preliminary
Pleural Fluid No Growth After 48 Hours
Gram Stain - Preliminary
01/13/24 20:22 Blood Culture - Final
Blood/Venous No Growth - Final Report
01/13/24 18:56 Blood Culture - Final
Blood/Venous No Growth - Final Report
01/15/24 10:08 Respiratory Culture - Final
Sputum Gram Stain - Final
01/13/24 13:00 Wound Culture - Final
Abscess Enterococcus raffinosus
Escherichia coli
Gram Stain - Final
01/09/24 14:28 Nasal Screen MRSA (PCR) - Final
Nose MRSA not detected - performed by PCR methodology.
12/26/23 14:43 Blood Culture - Final
Blood/Venous No Growth - Final Report
12/26/23 12:59 Blood Culture - Final
Blood/Venous No Growth - Final Report
12/25/23 17:30 Wound Culture - Final
Abscess Escherichia coli
Escherichia coli#2
Streptococcus species
Group F Streptococcus
Gram Stain - Final
Wound/abscess/other Cult Final 12/28/23-820
Many 1st strain Escherichia coli
Few 2nd strain Escherichia coli
Many Streptococcus species of two morphotypes
Moderate Group F Streptococcus*
1. Escherichia coli
M.I.C. RX
--------- ---
Amoxicillin/Potas. Clavulanate 16/8 I
Ampicillin >16 R
Ampicillin/Sulbactam >16/8 R
Cefazolin >16 R
Cefepime <=2 S
Ceftazidime <=1 S
Ceftriaxone <=1 S
Ertapenem <=0.5 S
Ciprofloxacin <=0.25 S
Gentamicin >8 R
Levofloxacin <=0.5 S
Meropenem <=1 S
Piperacillin/Tazobactam <=16 S
Tobramycin 8 I
Trimethoprim/Sulfamethoxazole >2/38 R
2. Escherichia coli#2
M.I.C. RX
--------- ---
Amoxicillin/Potas. Clavulanate <=8/4 S
Ampicillin >16 R
Ampicillin/Sulbactam >16/8 R
Cefazolin 16 R
Cefepime <=2 S
Ceftazidime <=1 S
Ceftriaxone <=1 S
Ertapenem <=0.5 S
Ciprofloxacin <=0.25 S
Gentamicin <=4 S
Levofloxacin <=0.5 S
Meropenem <=1 S
Piperacillin/Tazobactam <=16 S
Tobramycin <=4 S
Trimethoprim/Sulfamethoxazole >2/38 R
Imaging:
01/12/2024 CT abdomen/pelvis with contrast: There is a focal predominantly fluid collection in the left upper quadrant, which contains an anterior air-fluid level, compatible with an abscess. This has increased compared to examination of January 07,
2023. Of note, this collection is along the anterior margin of the spleen, without a well-defined plane between the collection and the spleen. There is also an irregular fluid collection within the left pelvis as described, and superimposed
infection of this collection cannot be excluded. There is a pigtail catheter in the left posterior pelvis, entering to the left gluteal region, with no evidence of a collection adjacent to this catheter. Subcutaneous edema, greater in both flanks.
Bilateral pleural effusions, left greater than right. Parenchymal opacity within both lower lobes, greater on the left compared to the right. This is most likely atelectasis, although underlying pneumonia difficult to completely exclude
radiographically.
01/03/2024 CT abdomen/pelvis: Markedly decreased posterior true pelvis abscess in comparison to prior pre-op chest drainage study with pigtail drainage catheter seen in the soft tissues of the left posterior true pelvis. Massively distended right
colon including cecum (cecum measuring up to 12 cm) with marked maximal colonic stool as well as gaseous distention of transverse and proximal descending colon, moderate stool with distention of the distal descending and sigmoid colon, limited in
evaluation without oral contrast opacification. Thickening Of the wall of the distal descending and proximal sigmoid colon which could represent colitis or diverticulitis. Partially obstructing distal colonic mass with inflammation cannot be
excluded. No free air. Please see full dictation for additional detail.
--- NOTE | 2024-01-23 11:03 | W.PN.CARDCBS ---
Addendum entered and electronically signed by Jose Bravo MD 01/23/24 12:05:
Sitting in chair, appears comfortable
No CP
No SOB at rest
No palps or dizziness
GEN: NAD. Movements of tardive dyskinesia
HEENT: MMM
LUNGS: Wearing oxygen at 3 L NC. No audible wheeze
CV: SR on tele, no murmur
ABD: ND
EXT:+1 pitting B/L LE edema
NEURO: Gross non-focal
SKIN: No rash
HFpEF with post-op volume overload
With diuresis
Weight on 01/23/24 was 193 lbs for a total of 22 lbs diuresed from her peak weight of 215 lbs this admission.
Continue Lasix 40 mg IV BID
Continue diuresis, replete K (goal K 4-5 and goal Mg 2-3)
Continues to require oxygen at 2-3 L NC despite thoracentesis on 01/20/24 and impressive diuresis.
Will check repeat CXR, possibly atelectasis.
Continues with pitting LE edema some of which is venous insuf along with HFpEF
Adding tubigrips for increased compression to help mobilize edema.
Eventual outpatient ischemic evaluation for anterolateral T wave changes on ECG 01/19/24
Hgb stable at 7.5. Patient has received a total of 3 units PRBCs this admission.
Original Note:
Today's Communication / Plan
-
Added B/L knee high tubigrips
KCl 40 meq now ordered
Recheck CXR in AM, ordered
Impression / Plan
-
PCP: Iva Benton
Cylinder Devalver: None prior to admission, initial consultation Dr. Carranza
Impression:
Presented 12/24/2023 with acute abdominal pain
Sigmoid diverticulitis with diverticular abscess
s/p IR drainage grew E. coli and group F Streptococcus (12/25/23)
s/p exploratory lap, colostomy (01/03/24)
s/p IR drainage perisplenic fluid (01/13/24)
Leukocytosis
Acute on chronic anemia
3 units PRBCs so far this admission
Superficial thrombosis of left basilic vein (no DVT)
Abnormal EKG
Acute hypoxic respiratory insufficiency
Left-sided pleural effusion
s/p Lt thoracentesis for 1 L 01/20/24
Acute HFpEF, proBNP 12,800
Hx Pulmonary aspergillosis voriconazole as outpatient
Bronchiectasis
Recurrent diverticulitis
Anxiety/depression
Hx steroid-induced psychosis
GERD
Asthma
Hyperlipidemia
Obesity
Spontaneous right carotid dissection discovered after ongoing migraine headaches in ~2021 Treated conservatively with DAPT
Restless legs syndrome
Tardive dyskinesia
Echo 01/19/2024: EF 50%, stage I DD, mild TR, PAP 35 to 40 mmHg, mild MT, pleural effusion present, trivial pericardial effusion. IVC is moderately dilated
Plan:
-Standing scale weight on 01/23/24 was 193 lbs for a total of 22 lbs diuresed from her peak weight of 215 lbs this admission.
-Continues with pitting LE edema, she is wearing venous compression on B/L calves, but will try adding tubigrips for increased compression to help mobilize edema.
-Sodium is 132, but stable with diuresis. Potassium down to 3.3 on 01/23/24, KCl 40 meq PO now ordered by me. Repeat BMP in AM
-Patient continues to require oxygen at 2-3 L NC despite thoracentesis on 01/20/24 and impressive diuresis. Will check repeat CXR, possibly atelectasis.
-Eventual outpatient ischemic evaluation for anterolateral T wave changes on ECG 01/19/24
-Tele reviewed, there are occasional episodes of ventricular bigeminy, asymptomatic.
-Hgb stable at 7.5. Patient has received a total of 3 units PRBCs this admission.
HPI: Patient is a 53-year-old female with past medical history significant for recurrent diverticulitis, pulmonary aspergillosis, hyperlipidemia, anxiety/depression, GERD and chronic anemia who presented to emergency department 12/24/2023 with acute
abdominal pain and fever. She was noted to have sigmoid diverticulitis with diverticular abscess and underwent IR drainage 12/25/2023. Due to constipation with distention and absent bowel sounds she underwent exploratory laparotomy with splenic
flexure takedown, creation of end colostomy and omentectomy on 01/03/2024. She underwent IR drainage of perisplenic fluid on 01/13/2024. Patient being followed closely by ID on antibiotics. Patient was n.p.o. for extended period of time and recently
advanced to low resolution diet. Patient received considerable volume throughout her hospitalization and has had 27 pound weight gain. Patient now with worsening shortness of breath, hypoxemia. Chest x-ray from 01/20/2024 shows large left pleural
fluid collection with indwelling left-sided chest tube and borderline pulmonary edema with cephalization of pulmonary vasculature. proBNP performed on 01/20/2024 noted to be elevated at 12,800. EKG performed on 01/19/2024 showed sinus rhythm with
new T wave abnormality in anterolateral leads which was not present on admission. She underwent an echocardiogram which demonstrated mildly reduced ejection fraction of 50% with elevated pulmonary pressures. Cardiology being asked to see patient
for concerns of acute heart failure and abnormal EKG.
Progress Note - Cylinder Devalver
Subjective
Date of Service: January 23, 2024
She feels much better
Objective
Labs:
01/23/24 06:21
01/23/24 06:21
Labs
Hgb 7.1 g/dL (12.0-16.0) L 01/23/24 06:21
Hct 21.8 % (37.0-47.0) L 01/23/24 06:21
Plt Count 465 10^3/uL (130-400) H 01/23/24 06:21
PT 15.3 Sec (11.4-14.6) H 01/06/24 15:22
INR 1.21 01/06/24 15:22
APTT 35.6 Sec (23.4-35.0) H 01/06/24 15:22
Sodium 132 mmol/L (135-145) L 01/23/24 06:21
Potassium 3.3 mmol/L (3.5-5.1) L 01/23/24 06:21
BUN 9 mg/dl (7-17) 01/23/24 06:21
Creatinine 0.4 mg/dL (0.6-1.0) L 01/23/24 06:21
Glucose 88 mg/dl (70-99) 01/23/24 06:21
Vital Signs and I&O:
Vital Signs
Temp Pulse Resp BP Pulse Ox
98.6 F 78 18 120/68 96
01/23/24 07:45 01/23/24 08:56 01/23/24 08:17 01/23/24 08:56 01/23/24 08:17
Vital Signs
Temp Pulse Resp BP Pulse Ox
98.6 F 78 18 120/68 96
01/23/24 07:45 01/23/24 08:56 01/23/24 08:17 01/23/24 08:56 01/23/24 08:17
Intake & Output
01/21/24 01/22/24 01/23/24 01/24/24
06:59 06:59 06:59 06:59
Intake Total 1120 / 1120 1590 / 1590 1479 / 1479
Output Total 3273 / 3273 1465 / 1465 30 / 30
Balance -2153 / -2153 125 / 125 1449 / 1449
Physical Exam
Physical Exam
GEN: NAD. Movements of tardive dyskinesia
HEENT: MMM
LUNGS: Wearing oxygen at 3 L NC. No audible wheeze
CV: SR on tele, no murmur
ABD: ND
EXT:+1 pitting B/L LE edema
NEURO: Gross non-focal
SKIN: No rash
--- NOTE | 2024-01-23 13:02 | W.PN.HOSP.TC ---
Today's Communication/Plan
-
cw current tx
Assessment / Plan
Assessment / Plan
A/P:
Sigmoid diverticulitis with abscess:
-h/o diverticulosis/diverticulitis
-s/p abscess drainage 12/25/23 by IR. E. coli and Enterococcus Raffinosus on 01/12 wound cultures.
-with findings of massively distended right colon including the cecum on CT scan of the abdomen pelvis on January 03, 2024 the patient was taken to the OR for Exploratory laparotomy, takedown splenic flexure, creation end colostomy, omentectomy
-cw abx/ Zosyn per ID
-Status post abdominal drain on 01/12.
-Follow-up repeat blood cultures for recurrent fevers since 01/12 but so far no growth but initial wound cultures growing E. coli and Enterococcus Raffinosus
-Low residue diet per surgery
- Rpt CT A/P 01/19 noted -No new surgical interventions planned
Leukocytosis:
Afebrile
Continue current antibiotics per ID
Continue to trend .
PICC discontinued as one of the concern of leukocytosis.
Improving.
Acute hypoxic respiratory insufficiency:
Now off of high flow oxygen for increased PEEP--> now down to 3 L of oxygen.
Continue to titrate oxygen as able.
Chest x-ray on 01/12 persistent moderate left pleural effusion-->Taken for possible thoracentesis on 01/10 but not enough fluid to be tapped. Discussed again with IR on 01/14 and not enough fluid.
Pulmonary following
Weight gain of 27 pounds noted over this admission. .BNP very high. Improving weight and oxygenation. Continue with the diuretics per cards.
Left pleural effusion s/p tap 01/19 - exudative - cx neg so far
Abnormal EKG-patient now has poor R waves in the anterior leads and also T wave inversion. Echo also showed low normal EF of 50%. Appreciate cardiology input.
Dyskinetic movements/Restless Legs:
-Psychiatry and neurology have decided to start her on Ingrezza. Seems to be working well. Pt feeling improved from her movements standpiont.
-Also started on amantadine.
-Stopped Requip and Neupro patch
-Started melatonin
-Remains on trazodone 100 mg as needed, Flexeril as needed, Dilaudid as needed; psych discussed with outpatient psychiatrist who felt she did not have manic episode but patient decided to continue Depakote. Depakote now discontinued .
-Seroquel stopped as Vfend increases serum concentration of Seroquel.
-Avoid antidopaminergic agents as much as possible
Thrombosis left upper extremity:
Superficial thrombosis in the left basilic vein (no DVT)
On Lovenox 40 mg daily for prevention DVT and will be enough for above plus local care.
PICC dced 01/19
Acute blood loss anemia:
-Aim to keep H&H more than 7. Follow blood work.
-s/p 3U pRBCs
Other problems:
h/o pulmonary Aspergillus: since Apr 2023. cont Vfend.
Hyperkalemia, resolved
HLD
GERD: cont PPI
Anxiety/depression: Continue Trazodone PRN/Prozac/Depakote. Seroquel stopped by psych.
FULL/Lovenox
CW PT/OT eval/tx
Anticipated Discharge: > 48 hours
Subjective/Interval History
-
Date of Service: January 23, 2024
With weight loss and pleural fluid tap she feels much better. Able to breathe better. 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 Everything in general also feels better.
Objective Data
-
Labs:
Laboratory Results
01/23/24
06:21
WBC 16.3 H
Hgb 7.1 L
Hct 21.8 L
Plt Count 465 H
Sodium 132 L
Potassium 3.3 L
Chloride 84 L
Carbon Dioxide 41 H
BUN 9
Creatinine 0.4 L
Glucose 88
Calcium 8.1 L
Vital Signs:
Vital Signs
Temp Pulse Resp BP Pulse Ox
98.8 F 87 18 148/83 94
01/23/24 11:30 01/23/24 12:54 01/23/24 11:30 01/23/24 12:54 01/23/24 11:30
I&O
01/22/24 01/23/24 01/24/24
06:59 06:59 06:59
Intake Total 1590 / 1590 1479 / 1479
Output Total 1465 / 1465
Balance 125 / 125 1449 / 1449
Review of Systems
-
Constitutional: Denies Fever
Cardiac: Denies Chest Pain
Abdomen/GI: Denies Nausea or Vomiting
Neuro: Denies Dizzy
Physical Exam
-
General: No Apparent Distress
HEENT: Moist Mucous Membranes
Respiratory: Non Labored Respirations and Decreased Breath Sounds (at left base); Negative Wheezes or Accessory Resp Muscle Use
Cardiac: Regular Rhythm and S1/S2
GI: Soft and Ostomy
Neuro: AO x 3
Data Reviewed
-
Labs: Labs Reviewed by me
--- NOTE | 2024-01-23 13:48 | W.PN.UPDATE ---
Update Note
Progress Note Update
53 y/o woman with long history of depression admitted to hospital one month ago. Had bowel surgery for an abscess and also has a fungal infection of the lungs. Is much improved medically and apparently may be discharged within a week. Her mood is
also much improved. She is calm, pleasant and appropriately talkative. Alluded to past suicidality. Has tardive dyskinesia (which is evident in face) which is now being treated with Ingrezza 40 mg. and she is off antipsychotic medication and
tolerating that. Is only taking Prozac 20 mg., amantadine 100 mg. BID;and melatonin 5 mg.HS. Has PRN trazodone 100 mg.which she has not been taking and I discouraged her from taking as it is not intended as a PRN sleep medication and could cause
serotonin syndrome in face of treatment with an SSRI.
. Her 15 y/o son, Vin, does not talk to her (has mandated family therapy). Had lived in [facility] and got her psychiatric care in [place] which she will be changing as she will likely live with her mother and her family in
[place].. Dr Glover has been in touch with out-patient psychiatrist and assured pt. does not have bipolar disorder.
Pt. graduated from [employer]. 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 Has applied for SSD.
Will continue medications unchanged. Psychiatry will continue to follow.
[2024-01-23] MEDS: LOVENOX 40 MG SC (18:13)
[2024-01-23] MEDS: SINGULAIR 10 MG PO (18:13)
[2024-01-23] MEDS: MELATONIN 5 MG PO (21:23)
[2024-01-24] VITALS (8 sets, daily range): BP systolic 114–157; BP diastolic 52–92; BMI 28.9
[2024-01-24] MEDS: DILAUDID 0.5 MG IV (00:36)
[2024-01-24] MEDS: ZOSYN 50 IV ×4 (05:14→23:57)
[2024-01-24] MEDS: ROXICODONE 5 MG PO ×5 (05:53→22:33)
--- NOTE | 2024-01-24 06:30 | PTCARENOTE ---
At 6am it was noticed that the left lower DAKOTA drain suture had come off and that the drain had come out approx [address] Salazar was notified. Dr Salazar will see the pt today.
[2024-01-24 06:48] LABS: Mean Corp Hgb Conc. 33.3 g/dL (33.0-37.0); Mean Corpuscular Hgb 29.5 pg (27.0-31.0); Mean Corpuscular Volume 88.6 fL (81.0-99.0); Mean Platelet Volume 8.9 fL (7.4-10.4); Platelet Count 440 10^3/uL (130-400); Red Blood Cell Count 2.37 10^6/uL (4.20-5.40); Red Cell Dist. Width 17.6 % (11.5-14.5); White Blood Cell Count 17.4 10^3/uL (4.8-10.8)
[2024-01-24 07:31] LABS: Blood Urea Nitrogen 6 mg/dl (7-17); Calcium 8.5 mg/dl (8.4-10.2); Carbon Dioxide 39 mmol/L (22-30); Chloride 85 mmol/L (98-107); Estimated Creatinine Clearance 125 ml/min; Glucose 87 mg/dl (70-99); Potassium 3.6 mmol/L (3.5-5.1); Sodium 129 mmol/L (135-145); eGFR > 60.00
[2024-01-24] MEDS: DUONEB 3 ML INH ×3 (07:49→20:46)
[2024-01-24] MEDS: SYMMETREL 100 MG PO ×2 (08:42→19:58)
[2024-01-24] MEDS: PROZAC 20 MG PO (08:42)
[2024-01-24] MEDS: VITAMIN D3 (cholecalciferol) 25 MCG PO (08:42)
[2024-01-24] MEDS: FOLVITE 1 MG PO (08:42)
[2024-01-24] MEDS: KCL 40 MEQ PO (08:42)
[2024-01-24] MEDS: NSS (PRESERVATIVE FREE) 10 ML IV (08:43)
[2024-01-24] MEDS: PROTONIX IV 40 MG IV (08:43)
[2024-01-24] MEDS: VFEND 200 MG PO ×2 (08:43→21:33)
[2024-01-24] MEDS: LASIX 40 MG IV ×2 (08:46→18:10)
[2024-01-24] MEDS: NON-FORMULARY ITEM 1 UNIT PO (08:46)
--- NOTE | 2024-01-24 09:00 | PTCARENOTE ---
Left lower DAKOTA drain is completely out. Dr. Salazar is on floor rounding and made aware. Repeat CT ABD ordered. Site covered by surgery and is CDI.
--- NOTE | 2024-01-24 10:19 | W.PN.HOSP.TC ---
Today's Communication/Plan
-
CT A/P
Tx PRBC
Follow Na and CBC
CW ABX per ID
Assessment / Plan
Assessment / Plan
A/P:
Sigmoid diverticulitis with abscess:
-h/o diverticulosis/diverticulitis
-s/p abscess drainage 12/25/23 by IR. E. coli and Enterococcus Raffinosus on 01/12 wound cultures.
-with findings of massively distended right colon including the cecum on CT scan of the abdomen pelvis on January 03, 2024 the patient was taken to the OR for Exploratory laparotomy, takedown splenic flexure, creation end colostomy, omentectomy
-cw abx/ Zosyn per ID
-Status post abdominal drain on 01/12.
-Follow-up repeat blood cultures for recurrent fevers since 01/12 but so far no growth but initial wound cultures growing E. coli and Enterococcus Raffinosus
-Low residue diet per surgery
- Rpt CT A/P 01/19 noted -No new surgical interventions planned
- Left abdo drain fell off 01/22 - CT abdomen requested by CRS
Leukocytosis:
Afebrile
Continue current antibiotics per ID
Flucutating
Continue to trend .
PICC discontinued as one of the concern of leukocytosis.
Acute hypoxic respiratory insufficiency:
Now off of high flow oxygen for increased PEEP--> now down to 3 L of oxygen.
Continue to titrate oxygen as able.
Chest x-ray on 01/12 persistent moderate left pleural effusion-->Taken for possible thoracentesis on 01/10 but not enough fluid to be tapped. Discussed again with IR on 01/14 and not enough fluid.
Pulmonary following
Weight gain of 27 pounds noted over this admission. .BNP very high. Improving weight and oxygenation. Continue with the diuretics per cards.
Left pleural effusion s/p tap 01/19 - exudative - cx neg so far
Abnormal EKG-patient now has poor R waves in the anterior leads and also T wave inversion. Echo also showed low normal EF of 50%. Appreciate cardiology input.
Dyskinetic movements/Restless Legs:
-Psychiatry and neurology have decided to start her on Ingrezza. Seems to be working well. Pt feeling improved from her movements standpiont.
-Also started on amantadine.
-Stopped Requip and Neupro patch
-Started melatonin
-Remains on trazodone 100 mg as needed, Flexeril as needed, Dilaudid as needed; psych discussed with outpatient psychiatrist who felt she did not have manic episode but patient decided to continue Depakote. Depakote now discontinued .
-Seroquel stopped as Vfend increases serum concentration of Seroquel.
-Avoid antidopaminergic agents as much as possible
Thrombosis left upper extremity:
Superficial thrombosis in the left basilic vein (no DVT)
On Lovenox 40 mg daily for prevention DVT and will be enough for above plus local care.
PICC dced 01/19
Acute blood loss anemia:
-Aim to keep H&H more than 7. Follow blood work.
-s/p 3U pRBCs
- Agree with transfusion on unit today consistent low hemoglobin in sevens.
Hyponatremia - pt was volume overloaded but then now improving. Unclear worsening of sodium while on IV Lasix. Check urine lites. Continue to follow
Other problems:
h/o pulmonary Aspergillus: since Apr 2023. cont Vfend.
Hyperkalemia, resolved
HLD
GERD: cont PPI
Anxiety/depression: Continue Trazodone PRN/Prozac/Depakote. Seroquel stopped by psych.
FULL/Lovenox
CW PT/OT eval/tx
Anticipated Discharge: > 48 hours
Subjective/Interval History
-
Date of Service: January 24, 2024
Left abdominal drain fell off last night.
Still tolerating diet.
Breathing comfortable.
Objective Data
-
Labs:
Laboratory Results
01/24/24
06:09
WBC 17.4 H
Hgb 7.0 L
Hct 21.0 L
Plt Count 440 H
Sodium 129 L
Potassium 3.6
Chloride 85 L
Carbon Dioxide 39 H
BUN 6 L
Creatinine 0.4 L
Glucose 87
Calcium 8.5
Vital Signs:
Vital Signs
Temp Pulse Resp BP Pulse Ox
97.8 F 83 16 130/76 93
01/24/24 07:05 01/24/24 08:46 01/24/24 07:53 01/24/24 08:46 01/24/24 07:53
I&O
01/23/24 01/24/24 01/25/24
06:59 06:59 06:59
Intake Total 1479 / 1479 1070 / 1070
Output Total 30 52 / 52
Balance 1449 / 1449 1018 / 1018
Review of Systems
-
Constitutional: Denies Fever
Cardiac: Denies Chest Pain
Abdomen/GI: Denies Nausea or Vomiting
Neuro: Denies Dizzy
Physical Exam
-
General: No Apparent Distress
HEENT: Moist Mucous Membranes
Respiratory: Non Labored Respirations and Decreased Breath Sounds (Left base); Negative Wheezes or Accessory Resp Muscle Use
Cardiac: Regular Rhythm and S1/S2
GI: Soft, Nontender and Ostomy
Neuro: AO x 3
Psych: Calm
Data Reviewed
-
Labs: Labs Reviewed by me
--- NOTE | 2024-01-24 10:54 | W.PN.GS2 ---
Addendum entered and electronically signed by Sandor Salazar MD 01/24/24 11:58:
Given fatigue, her anemia may be symptomatic. Will give her 1 unit of packed red blood cells today.
Original Note:
Today's Communication / Plan
-
CT scan today.
Assessment / Plan
-
Assessment: 53 yo female with recent aspergillus pneumonia on home O2 and on recent steroids presenting with complicated diverticulitis with large pelvic abscess, failed initial nonoperative management now status post Garcia's procedure.
12/25/2023 s/p IR drainage of abscess cx with 2 strep species and 2 species of e.coli noted
01/03/2024 s/p exploratory laparotomy with takedown of splenic flexure, creation end colostomy with omentectomy
01/13/2024 s/p IR drain post op perisplenic fluid collection 01/14/24 cx with enterococcus/e. coli.
Off TPN since 01/12, on LRD
01/24/2024 left lower quadrant DAKOTA that was previously draining pus dislodged.
AFVSS
Leukocytosis uptrending
Plan: Will plan for a CT abdomen pelvis with rectal and IV contrast today to assess for residual collections and assess her stump.
Type and screen ordered, can hold off on transfusion for now.
Cont low residue diet and encourage PO intake/supplements; okay for family to bring in food/supplements from home.
Pain control: Tylenol, Oxycodone, IV Dilaudid PRN
Continue IV abx per ID recs
Ostomy teaching
Continue drains x2 to bulb suction Flush IR drains x2 daily.
Daily dressing changes to midline incision, dry gauze packing to open area in middle of wound
DVT: SCDs as tolerated. Lovenox sq
GI: IV PPI
Time Spent
Total Time Spent with Patient (in minutes): 15
Subjective Data
-
Date of Service: January 24, 2024
Interval Events:
Patient's left lower quadrant drain dislodged. Otherwise slept well. Pain Controlled. Denies Nausea/Vomiting, +bowel function. Tolerating diet.
Objective Data
-
Intake and Output
01/23/24 01/24/24 01/25/24
06:59 06:59 06:59
Intake Total 1479 / 1479 1070 / 1070
Output Total
Balance 1449 / 1449 1018 / 1018
Intake:
Oral fluids 1374 / 1374 960 / 960
IV piggybacks 100 / 100 100 / 100
Amount instilled into Drain (
Total)
Left Upper Abdomen Placed in IR
Output:
Drain Output (Total)
Left Abdomen Cole-Olmos 35 / 35
Left Upper Abdomen Placed in IR
Other:
Number of approximated SMALL 3
amounts of urine
Number of approximated MODERATE 3 6
amounts of urine
Number of approximated LARGE 3 2
amounts of urine
Vital Signs
Temp Pulse Resp BP Pulse Ox
97.8 F 83 16 130/76 93
01/24/24 07:05 01/24/24 08:46 01/24/24 07:53 01/24/24 08:46 01/24/24 07:53
Lab Results
01/24/24 06:09
01/24/24 06:09
Calcium 8.5 mg/dl (8.4-10.2) 01/24/24 06:09
Phosphorus 3.4 mg/dl (2.5-4.5) 01/18/24 05:48
Magnesium 2.0 mg/dl (1.6-2.3) 01/18/24 05:48
Total Bilirubin 0.5 mg/dl (0.2-1.3) 01/18/24 05:48
AST 26 U/L (14-36) 01/18/24 05:48
ALT < 10 U/L (0-35) 01/18/24 05:48
Alkaline Phosphatase 88 U/L (38-126) 01/18/24 05:48
Total Protein 4.5 g/dl (6.3-8.2) L 01/18/24 05:48
Albumin 2.0 g/dl (3.5-5.0) L 01/18/24 05:48
Physical Exam
-
GENERAL/NEURO: Awake, Alert, no distress
CHEST: Unlabored breathing on RA
ABDOMEN: Soft, Non-Tender, Non-Distended, left upper quadrant IR drain in place with serosanguineous drainage. There is some purulent output from the tract of the left lower quadrant DAKOTA. The ostomy is pink patent and productive of brown stool.
The midline wound is open in the middle with some healthy granulation tissue
[2024-01-24 15:19] LABS: Osmolality Urine 349 mOsm/kg (300-900)
[2024-01-24 15:37] LABS: Urine Sodium 85 mmol/L (30-90)
--- NOTE | 2024-01-24 16:15 | W.PN.UPDATE ---
Update Note
Progress Note Update
S: Surgical drain with accidental dislodgement overnight
B: CT imaging in follow up reviewed, small collection at left mid to lower abdomen noted with air within the peritoneum. Rectal contrast without extravasation from rectal stump.
A/R: Will discuss drain placement with IR into fluid collection/abscess space. Continue abx.
--- NOTE | 2024-01-24 17:02 | W.PN.UPDATE ---
Update Note
Progress Note Update
Seen for folllow-up Chart reviewd and spoke to nurse. A drain dislodged and there is a fluid collection which will need to be drained.
She is alert and oriented. Slightly teary -- today would have been her father's birthday. Was hoping for her brother to visit, but he is needed to take care of step-father. She is accepting of the minor medical setback. Trying to live in the
present. Uncertain of whether she will be moving to this area; will then need to get new mental health providers.
She sometimes closes her eyes and talks to herself by her report, but this does not appear to be hallucinations. Likely from isolation of being in the hospital for over a month.
Tardive dyskinesia clearly present, but she thinks it is already improving. Tolerarting Ingrezza.
Will continue medication unchanged. Psychiatry will follow.
[2024-01-24] MEDS: LOVENOX 40 MG SC (18:09)
[2024-01-24] MEDS: SINGULAIR 10 MG PO (18:10)
[2024-01-24] MEDS: MELATONIN 5 MG PO (21:33)
[2024-01-25] VITALS (10 sets, daily range): BP systolic 74–184; BP diastolic 59–84; PULSE 80–83; O2SAT 92; BMI 28.1
[2024-01-25] MEDS: ZOSYN 50 IV ×3 (05:11→17:00)
[2024-01-25] MEDS: ROXICODONE 5 MG PO ×4 (05:27→21:34)
[2024-01-25 06:05] LABS: Hematocrit 22.8 % (37.0-47.0); Hemoglobin 7.4 g/dL (12.0-16.0); Mean Corp Hgb Conc. 32.5 g/dL (33.0-37.0); Mean Corpuscular Hgb 29.1 pg (27.0-31.0); Mean Corpuscular Volume 89.8 fL (81.0-99.0); Platelet Count 414 10^3/uL (130-400); Red Blood Cell Count 2.54 10^6/uL (4.20-5.40); Red Cell Dist. Width 17.5 % (11.5-14.5); White Blood Cell Count 15.1 10^3/uL (4.8-10.8)
[2024-01-25 06:33] LABS: ALT (SGPT) 28 U/L (0-35); AST (SGOT) 54 U/L (14-36); Albumin 2.2 g/dl (3.5-5.0); Alkaline Phosphatase 232 U/L (38-126); Blood Urea Nitrogen 6 mg/dl (7-17); Calcium 8.3 mg/dl (8.4-10.2); Carbon Dioxide 40 mmol/L (22-30); Chloride 86 mmol/L (98-107); Estimated Creatinine Clearance 123 ml/min; Glucose 79 mg/dl (70-99); Magnesium 1.8 mg/dl (1.6-2.3); Phosphorus 3.8 mg/dl (2.5-4.5); Potassium 3.4 mmol/L (3.5-5.1); Sodium 132 mmol/L (135-145); Total Bilirubin 0.7 mg/dl (0.2-1.3); Total Protein 4.8 g/dl (6.3-8.2); eGFR > 60.00
[2024-01-25] MEDS: DUONEB 3 ML INH ×3 (07:47→20:33)
[2024-01-25] MEDS: LASIX 40 MG IV ×2 (08:15→16:20)
[2024-01-25] MEDS: NSS (PRESERVATIVE FREE) 10 ML IV (08:15)
[2024-01-25] MEDS: PROTONIX IV 40 MG IV (08:15)
[2024-01-25] MEDS: PROZAC PO (08:16)
[2024-01-25] MEDS: SYMMETREL 100 MG PO ×2 (08:17→21:35)
[2024-01-25] MEDS: NON-FORMULARY ITEM 1 UNIT PO (08:18)
[2024-01-25] MEDS: FOLVITE 1 MG PO (08:18)
[2024-01-25] MEDS: VITAMIN D3 (cholecalciferol) 25 MCG PO (08:18)
[2024-01-25] MEDS: VFEND 200 MG PO ×2 (08:20→21:34)
[2024-01-25] MEDS: KCL 40 MEQ PO ×2 (08:21→16:20)
[2024-01-25] MEDS: PROZAC 20 MG PO (08:38)
--- NOTE | 2024-01-25 08:52 | W.PN.CARDCBS ---
Addendum entered and electronically signed by Daryl Uriostegui DO 01/25/24 10:47:
I saw and examined the patient.
The Employee Wellness/Fitness Coordinator's note was reviewed and I agree with the note.
Comment:
Plan:
Cont IV diuresis
Wt continues to come down. 30 lbs this admit
Replete lytes as needed.
Monitor H/H. received 4 units PRBCs
Original Note:
Today's Communication / Plan
-
Ongoing IV diuresis
KCL 40 meq at 1400
Impression / Plan
-
PCP: Iva Benton
[employer] Consultant: None prior to admission, initial consultation Dr. Carranza
Impression:
Presented 12/24/2023 with acute abdominal pain
Sigmoid diverticulitis with diverticular abscess
s/p IR drainage grew E. coli and group F Streptococcus (12/25/23)
s/p exploratory lap, colostomy (01/03/24)
s/p IR drainage perisplenic fluid (01/13/24)
Leukocytosis
Acute on chronic anemia
3 units PRBCs so far this admission
Superficial thrombosis of left basilic vein (no DVT)
Abnormal EKG
Acute hypoxic respiratory insufficiency
Left-sided pleural effusion
s/p Lt thoracentesis for 1 L 01/20/24
Acute HFpEF, proBNP 12,800
Hx Pulmonary aspergillosis voriconazole as outpatient
Bronchiectasis
Recurrent diverticulitis
Anxiety/depression
Hx steroid-induced psychosis
GERD
Asthma
Hyperlipidemia
Obesity
Spontaneous right carotid dissection discovered after ongoing migraine headaches in ~2021 Treated conservatively with DAPT
Restless legs syndrome
Tardive dyskinesia
Echo 01/19/2024: EF 50%, stage I DD, mild TR, PAP 35 to 40 mmHg, mild TN, pleural effusion present, trivial pericardial effusion. IVC is moderately dilated
Plan:
-Weight is down to 185 lbs on 01/25/24 which is down 30 lbs this admission from her peak weight of 215 lbs this admission.
-LE edema has improved with B/L LE tubigrips.
-Potassium down to 3.4 on 01/25/24. Usual dose of KCl 40 meq daily given 01/25/24 and will order an additional KCl 40 meq at 1400.
-Sodium improved to 132 on 01/25/24
-Cont Lasix 40 mg IV BID. Patient was not taking a diuretic prior to admission.
-Repeat CXR 01/24/24 shows recurrence of left sided pleural effusion and patient reports the plan is for another thoracentesis in IR on 01/25/24
-Eventual outpatient ischemic evaluation for anterolateral T wave changes on ECG 01/19/24
-Tele reviewed, there are occasional episodes of ventricular bigeminy, asymptomatic.
-Patient has received a total of 4 units PRBCs this admission.
HPI: Patient is a 53-year-old female with past medical history significant for recurrent diverticulitis, pulmonary aspergillosis, hyperlipidemia, anxiety/depression, GERD and chronic anemia who presented to emergency department 12/24/2023 with acute
abdominal pain and fever. She was noted to have sigmoid diverticulitis with diverticular abscess and underwent IR drainage 12/25/2023. Due to constipation with distention and absent bowel sounds she underwent exploratory laparotomy with splenic
flexure takedown, creation of end colostomy and omentectomy on 01/03/2024. She underwent IR drainage of perisplenic fluid on 01/13/2024. Patient being followed closely by ID on antibiotics. Patient was n.p.o. for extended period of time and recently
advanced to low resolution diet. Patient received considerable volume throughout her hospitalization and has had 27 pound weight gain. Patient now with worsening shortness of breath, hypoxemia. Chest x-ray from 01/20/2024 shows large left pleural
fluid collection with indwelling left-sided chest tube and borderline pulmonary edema with cephalization of pulmonary vasculature. proBNP performed on 01/20/2024 noted to be elevated at 12,800. EKG performed on 01/19/2024 showed sinus rhythm with
new T wave abnormality in anterolateral leads which was not present on admission. She underwent an echocardiogram which demonstrated mildly reduced ejection fraction of 50% with elevated pulmonary pressures. Cardiology being asked to see patient
for concerns of acute heart failure and abnormal EKG.
Progress Note - [employer] Consultant
Subjective
Date of Service: January 25, 2024
She is trying to stay optimistic, tubigrips helped with LE edema
Objective
Labs:
01/25/24 05:01
01/25/24 05:01
Labs
Hgb 7.4 g/dL (12.0-16.0) L 01/25/24 05:01
Hct 22.8 % (37.0-47.0) L 01/25/24 05:01
Plt Count 414 10^3/uL (130-400) H 01/25/24 05:01
PT 15.3 Sec (11.4-14.6) H 01/06/24 15:22
INR 1.21 01/06/24 15:22
APTT 35.6 Sec (23.4-35.0) H 01/06/24 15:22
Sodium 132 mmol/L (135-145) L 01/25/24 05:01
Potassium 3.4 mmol/L (3.5-5.1) L 01/25/24 05:01
BUN 6 mg/dl (7-17) L 01/25/24 05:01
Creatinine 0.5 mg/dL (0.6-1.0) L 01/25/24 05:01
Glucose 79 mg/dl (70-99) 01/25/24 05:01
Vital Signs and I&O:
Vital Signs
Temp Pulse Resp BP Pulse Ox
98.4 F 81 15 153/82 96
01/25/24 07:28 01/25/24 08:15 01/25/24 07:52 01/25/24 08:15 01/25/24 07:52
Vital Signs
Temp Pulse Resp BP Pulse Ox
98.4 F 81 15 153/82 96
01/25/24 07:28 01/25/24 08:15 01/25/24 07:52 01/25/24 08:15 01/25/24 07:52
Intake & Output
01/23/24 01/24/24 01/25/24 01/26/24
06:59 06:59 06:59 06:59
Intake Total 1479 / 1479 1070 / 1070 1450 / 1450
Output Total 30 30 52 / 52 3907 / 3907
Balance 1449 / 1449 1018 / 1018 -2457 / -2457
Physical Exam
Physical Exam
GEN: NAD. Movements of tardive dyskinesia
HEENT: MMM
LUNGS: Wearing oxygen at 3 L NC. No audible wheeze
CV: SR on tele, no murmur
ABD: ND
EXT:+1 pitting B/L LE edema
NEURO: Gross non-focal
SKIN: No rash
--- NOTE | 2024-01-25 09:33 | W.PN.GS2 ---
Addendum entered and electronically signed by Sandor Salazar MD 01/25/24 14:45:
Recommend repeat thoracentesis of the left chest given large collection there
Original Note:
Today's Communication / Plan
-
IR drainage
Assessment / Plan
-
Assessment: 53 yo female with recent aspergillus pneumonia on home O2 and on recent steroids presenting with complicated diverticulitis with large pelvic abscess, failed initial nonoperative management now status post Garcia's procedure.
12/25/2023 s/p IR drainage of abscess cx with 2 strep species and 2 species of e.coli noted
01/03/2024 s/p exploratory laparotomy with takedown of splenic flexure, creation end colostomy with omentectomy
01/13/2024 s/p IR drain post op perisplenic fluid collection 01/14/24 cx with enterococcus/e. coli.
Off TPN since 01/12, on LRD
01/24/2024 Left lower quadrant DAKOTA that was previously draining pus dislodged. CT repeated with recurrent pleural effusion and fluid collection to the left mid/lower abd. No extravasation of contrast from the rectal stump.
AFVSS, 3L O2 requirement
Leukocytosis trending back down
H/H stable s/p 1 unit pRBC's yesterday
Plan: Percutaneous drain placement today to lower abdomen
Continue local wound care
Cont low residue diet and encourage PO intake/supplements; okay for family to bring in food/supplements from home.
Pain control: Tylenol, Oxycodone, IV Dilaudid PRN
Continue abx per ID recs
Ostomy teaching
Continue drains x2 to bulb suction, Flush IR drain daily.
Daily dressing changes to midline incision, dry gauze packing to open area in middle of wound
DVT: SCDs as tolerated. Lovenox sq
GI ppx: IV PPI
Pulmonary/medical management as per primary team
Subjective Data
-
Date of Service: January 25, 2024
Patient seen and examined at bedside with Dr. Salazar. Denies n/v. Tolerating diet. Denies pain
Objective Data
-
Intake and Output
01/24/24 01/25/24 01/26/24
06:59 06:59 06:59
Intake Total 1070 / 1070 1450 / 1450
Output Total 3907 / 3907
Balance 1018 / 1018 -2457 / -2457
Intake:
Oral fluids 960 / 960 1200 / 1200
IV piggybacks 100 / 100
Amount instilled into Drain (
Total)
Left Upper Abdomen Placed in IR
Blood Product Amount Infused ( 250 / 250
mL)
Packed Rbc Leukoreduced Unit 250 / 250
[id number]
Output:
Drain Output (Total)
Left Abdomen Cole-Olmos 35 / 35
Left Upper Abdomen Placed in IR
Urine, Voided 3900 / 3900
Other:
Number of approximated SMALL 3
amounts of urine
Number of approximated MODERATE 6 2
amounts of urine
Number of approximated LARGE 2
amounts of urine
Vital Signs
Temp Pulse Resp BP Pulse Ox
98.4 F 81 15 153/82 96
01/25/24 07:28 01/25/24 08:15 01/25/24 07:52 01/25/24 08:15 01/25/24 07:52
Lab Results
01/25/24 05:01
01/25/24 05:01
Calcium 8.3 mg/dl (8.4-10.2) L 01/25/24 05:01
Phosphorus 3.8 mg/dl (2.5-4.5) 01/25/24 05:01
Magnesium 1.8 mg/dl (1.6-2.3) 01/25/24 05:01
Total Bilirubin 0.7 mg/dl (0.2-1.3) 01/25/24 05:01
AST 54 U/L (14-36) H 01/25/24 05:01
ALT 28 U/L (0-35) 01/25/24 05:01
Alkaline Phosphatase 232 U/L (38-126) H 01/25/24 05:01
Total Protein 4.8 g/dl (6.3-8.2) L 01/25/24 05:01
Albumin 2.2 g/dl (3.5-5.0) L 01/25/24 05:01
Physical Exam
-
Awake, Alert, NAD. OOB to chair
Soft, Non-Tender, Non-Distended, left upper quadrant IR drain in place with purulent drainage. There is minimal purulent/fibrinous output from the tract of the left lower quadrant DKAOTA. The ostomy is pink patent and productive of brown stool. The
midline wound is open in the middle with some healthy granulation tissue, heaven intact
--- NOTE | 2024-01-25 10:17 | W.PN.ID1 ---
Date of Service
Date of Service: January 25, 2024
Today's Communication
Continue antibiotics.
Assessment / Plan
Diverticular abscess
- s/p IR drainage (12/25/23)
- s/p exploratory lap, colostomy (01/03/24)
- s/p IR drainage perisplenic fluid (01/13/24)
Leukocytosis
-Improved today.
Hx Pulmonary aspergillosis; on Vfend as outpatient.
Recurrent diverticulitis
Anxiety/depression
Hx steroid-induced psychosis
GERD
Asthma
Recommendations:
Left upper quadrant abscess; s/p IR drainage 01/13/2024. Cultures E. coli (zosyn sensitive), Enterococcus raffinosus (amp. sensitive)
Repeat CT revealed near complete drainage of left upper quadrant collection. A large left-sided pleural effusion is noted.
Leukocytosis improved today.
Continue Zosyn (d#33 abx)
At D/C, will transition to amoxcillin / cefdinir.
One drain was dislodged; for potential reinsertion later today.
Continue to monitor white count and temperature curve.
Continue with voriconazole (suspect for ABPA)
����������������������������������������������������������
Chief Complaint
-: Leukocytosis and Other (Diverticulitis; diverticular abscess)
Subjective / Review of Systems
Review of Systems: No Fever and No Chills
Vital Signs / Physical Exam
Vital Signs
Vital Signs
Temp Pulse Resp BP Pulse Ox
98.4 F 81 15 153/82 96
01/25/24 07:28 01/25/24 08:15 01/25/24 07:52 01/25/24 08:15 01/25/24 07:52
Physical Exam
Constitutional: No Acute Distress, Comfortable and Non-toxic
Eyes: Sclera Anicteric
Cardiovascular: S1/S2; Negative S3/S4
Pulmonary: Clear; Negative Wheezes, Rales or Rhonchi
Gastrointestinal: Soft, Non Tender, Non Distended, Normal Bowel Sounds and Other (DAKOTA's in place with purulent drainage.)
Genito-Urinary: Negative Calles
Extremities: Negative Edema, Cyanosis or Erythema
Skin: Negative Rash or Jaundice
Neurological: Awake, Alert and AO x 3
Psychological: Calm
Objective Data
Lab Data
Lab Results
01/25/24 05:01
01/25/24 05:01
PT 15.3 Sec (11.4-14.6) H 01/06/24 15:22
INR 1.21 01/06/24 15:22
APTT 35.6 Sec (23.4-35.0) H 01/06/24 15:22
Estimated Creat Clear 123 ml/min 01/25/24 05:01
Lactic Acid Cancelled 01/04/24 09:00
Total Bilirubin 0.7 mg/dl (0.2-1.3) 01/25/24 05:01
AST 54 U/L (14-36) H 01/25/24 05:01
ALT 28 U/L (0-35) 01/25/24 05:01
Alkaline Phosphatase 232 U/L (38-126) H 01/25/24 05:01
Most recent labs reviewed.
Micro Results:
01/20/24 14:44 Body Fluid Culture - Final
Pleural Fluid No Growth After 72 Hours
Gram Stain - Final
01/13/24 20:22 Blood Culture - Final
Blood/Venous No Growth - Final Report
01/13/24 18:56 Blood Culture - Final
Blood/Venous No Growth - Final Report
01/15/24 10:08 Respiratory Culture - Final
Sputum Gram Stain - Final
01/13/24 13:00 Wound Culture - Final
Abscess Enterococcus raffinosus
Escherichia coli
Gram Stain - Final
01/09/24 14:28 Nasal Screen MRSA (PCR) - Final
Nose MRSA not detected - performed by PCR methodology.
12/26/23 14:43 Blood Culture - Final
Blood/Venous No Growth - Final Report
12/26/23 12:59 Blood Culture - Final
Blood/Venous No Growth - Final Report
12/25/23 17:30 Wound Culture - Final
Abscess Escherichia coli
Escherichia coli#2
Streptococcus species
Group F Streptococcus
Gram Stain - Final
Wound/abscess/other Cult Final 12/28/23-820
Many 1st strain Escherichia coli
Few 2nd strain Escherichia coli
Many Streptococcus species of two morphotypes
Moderate Group F Streptococcus*
1. Escherichia coli
M.I.C. RX
--------- ---
Amoxicillin/Potas. Clavulanate 16/8 I
Ampicillin >16 R
Ampicillin/Sulbactam >16/8 R
Cefazolin >16 R
Cefepime <=2 S
Ceftazidime <=1 S
Ceftriaxone <=1 S
Ertapenem <=0.5 S
Ciprofloxacin <=0.25 S
Gentamicin >8 R
Levofloxacin <=0.5 S
Meropenem <=1 S
Piperacillin/Tazobactam <=16 S
Tobramycin 8 I
Trimethoprim/Sulfamethoxazole >2/38 R
2. Escherichia coli#2
M.I.C. RX
--------- ---
Amoxicillin/Potas. Clavulanate <=8/4 S
Ampicillin >16 R
Ampicillin/Sulbactam >16/8 R
Cefazolin 16 R
Cefepime <=2 S
Ceftazidime <=1 S
Ceftriaxone <=1 S
Ertapenem <=0.5 S
Ciprofloxacin <=0.25 S
Gentamicin <=4 S
Levofloxacin <=0.5 S
Meropenem <=1 S
Piperacillin/Tazobactam <=16 S
Tobramycin <=4 S
Trimethoprim/Sulfamethoxazole >2/38 R
Imaging:
01/12/2024 CT abdomen/pelvis with contrast: There is a focal predominantly fluid collection in the left upper quadrant, which contains an anterior air-fluid level, compatible with an abscess. This has increased compared to examination of January 07,
2023. Of note, this collection is along the anterior margin of the spleen, without a well-defined plane between the collection and the spleen. There is also an irregular fluid collection within the left pelvis as described, and superimposed
infection of this collection cannot be excluded. There is a pigtail catheter in the left posterior pelvis, entering to the left gluteal region, with no evidence of a collection adjacent to this catheter. Subcutaneous edema, greater in both flanks.
Bilateral pleural effusions, left greater than right. Parenchymal opacity within both lower lobes, greater on the left compared to the right. This is most likely atelectasis, although underlying pneumonia difficult to completely exclude
radiographically.
01/03/2024 CT abdomen/pelvis: Markedly decreased posterior true pelvis abscess in comparison to prior pre-op chest drainage study with pigtail drainage catheter seen in the soft tissues of the left posterior true pelvis. Massively distended right
colon including cecum (cecum measuring up to 12 cm) with marked maximal colonic stool as well as gaseous distention of transverse and proximal descending colon, moderate stool with distention of the distal descending and sigmoid colon, limited in
evaluation without oral contrast opacification. Thickening Of the wall of the distal descending and proximal sigmoid colon which could represent colitis or diverticulitis. Partially obstructing distal colonic mass with inflammation cannot be
excluded. No free air. Please see full dictation for additional detail.
[2024-01-25] MEDS: OMNIPAQUE 50 ML PO (12:51)
--- NOTE | 2024-01-25 14:16 | CM ---
Reviewed the chart notes. PT recommending acute rehab. Referral sent to [facility]. CM continues to be available to patient/family and is monitoring medical plan for needs at discharge.
Plan: Discharge to either acute rehab or SNF. Precert will be required.
--- NOTE | 2024-01-25 14:27 | W.PN.PUL3 ---
Today's Communication / Plan
-
NPO past midnight for L-sided thoracentesis tomorrow
Up OOB as tolerated
PT/OT � acute rehab s/p discharge
Pain control
Follow-up fluid that was sent today from IR via new catheter into pelvic abscess
Assessment
-
53-year-old female with past medical history of recurrent diverticulitis, pulmonary aspergillosis, hyperlipidemia, anxiety/depression, and GERD who presents with abdominal pain. She apparently was recently treated for diverticulitis in October 2023
with Augmentin at [facility] in [place] where she resides. She also reported that she was treated this month for ongoing fungal lung infection with Aspergillus and also given additional antibiotics but unknown what names of these
medications are. She developed a fever about 5 days ago and continues to be on Augmentin for last 3 days. She was visiting her mother in [place] prior to arrival when the pain in her left lower quadrant became severe so she came here to the ""hospital for further care. She was afebrile in the ER to 98.6 �F, 79 pulse rate, breathing at 16 breaths/min, normotensive at 133/77 and saturating 100% on room air. Labs showed leukocytosis to 21.2, mild anemia to 11.5, mild hyponatremia to 134,
mild hyperkalemia to 5.6, and negative lipase of <10. CT A/P on admission showed severe sigmoid diverticulitis with large pericolonic abscess. She was given pain medications in the ER + Levaquin + IV fluids with NS x1L, and admitted to the
hospitalist service with general surgery consulted and antibiotics were started with Zosyn. She underwent IR CT-guided drainage on 12/24 with 170 cc of pale green purulent material seen - this later grew E. coli and group F Streptococcus. Patient
continues to be managed on the floor and was having issues with constipation. Repeat CT A/P performed on 01/02 showing decrease size in the abscess with pigtail drainage catheter seen in place, with massively distended right colon including the
cecum with stool distention and continued suspected distal descending colon/sigmoid diverticulitis. Given patient's worsening pain with distention and no flatus or BM in about 4 days, patient underwent exploratory laparotomy with splenic flexure
takedown, creation of end colostomy and omentectomy on 01/03/2024, and transferred to the ICU postoperatively. There was 150 cc of EBL and no immediate complications. Patient was stabilized and sent to the floor and pulmonary was reconsulted
01/12/2024 with ongoing hypoxemia.
Impression:
#Sigmoid diverticulitis s/p exploratory laparotomy with splenic flexure takedown, end colostomy creation and omentectomy � OR date: 01/12/2024
#Sigmoid diverticulitis c/b large pericolonic abscess s/p IR CT-guided drainage on 12/24 with purulent fluid growing E. coli + group F Streptococcus
#Constipation
#Leukocytosis
#Chronic anemia (unknown baseline but she has been between 8.5�11.5g/dL since admission)
#Lower lobe pulmonary bronchiectasis � likely due to her history of chronic pulmonary aspergillosis diagnosed in fall 2022
#History of pulmonary aspergillosis on voriconazole
#Left-sided pleural effusion status post thoracentesis on 01/20/2024 (exudative fluid with low glucose of 35)
Plan:
Respiratory status improved after thoracentesis 01/20/2024 --> she has re- accumulation of left-sided pleural fluid and is awaiting a repeat thoracentesis tomorrow
Supplemental oxygen as needed-currently on 3 L/min mid flow-attempt to wean as tolerated
Aspiration precautions
Incentive spirometry encouraged
Acapella
Mucus clearing devices
DuoNebs TID + budesonide BID prn
Singulair continues
Note that the patient takes Breo as an outpatient
Radiographs summarized below
Chest x-ray with significant increase in what appears to be pleural fluid from 01/13/2024 through 01/19/2024
Dr[address] Paulson contacted interventional radiology for thoracentesis 01/20/24--1000 mL clear yellow exudative pleural fluid
Chest x-ray 01/20/2024-no pneumothorax, small to moderate residual left pleural effusion significantly decreased
Cell count: pH 7.37 - wbc 561 - glu 35 - tp 3.1 - 4123 -- exudative, likely parapneumonic; superimposed pseudoexudate from diuresis cannot be ruled out
Culture negative to date, path pending
She also has low albumin state which may be contributing to pleural fluid buildup
She is pending thoracentesis tomorrow (01/25); then will occasionally check CXR to monitor pleural fluid status
Upper right extremity ultrasound 01/20/2024-no evidence for DVT
Cultures reviewed
Continue antibiotics - pt was on Zosyn (started 12/24/2023) and then changed to Meropenem on 01/13, and as of 01/15 she is back on Zosyn
Infectious disease following-correspondence reviewed
Left upper quadrant collection-IR drainage 01/14/2024
Prior LL acute DAKOTA drain had dislodged and patient underwent reinsertion today by IR --> follow up fluid C+S
Continue voriconazole for her history of pulmonary aspergillosis
Follow leukocytosis
Continue diuresis as tolerated
Monitor renal function, electrolytes, intake/output, lower extremity edema and weight
Replace electrolytes as needed
Cardiology following-correspondence reviewed-continue with IV diuresis
Surgery following-correspondence reviewed
Low residual diet per surgery
CT abdomen 01/12/2024-fluid collection left upper quadrant contains anterior air-fluid level compatible with abscess increased compared to 01/08/2024, irregular fluid collection within left pelvis and superimposed infection of this collection cannot be
excluded, pigtail catheter in posterior pelvis no evidence of collection in this area, bilateral pleural effusions left greater than right most likely atelectasis
She is on a low residue diet and seems to be tolerating it well
Intermittent CT abdomen to follow-up on collections --> less CT A/P on 01/24/2024 showing anterior left midline/LLQ small collection with trace mental stable fluid adjacent to the spleen, and free air within the peritoneum (expected post-procedure)
Neurology following due to tardive dyskinesia-correspondence reviewed
Restless legs still an issue-improved
Rotigotine patch now off
Continue amantadine and Ingrezza
DVT prophylaxis-on Lovenox
GI prophylaxis-on Protonix (she takes pantoprazole at home)
Nutrition per surgery
PT/OT --> rec'd acute rehab upon discharge
Outpatient pulmonary follow-up -she has a health data administrator as well as an ID doctor in [place], [place], and I advised her to follow-up with those specialists once she is discharged.
Total time spent today was 35 minutes for this encounter. Time includes reviewing laboratory test/imaging results, reviewing pertinent medical records, obtaining and reviewing medical history, performing an appropriate exam, ordering medications,
tests and procedures. Time also includes documentation of this encounter, coordinating patient care and communicating with other healthcare professionals. Total time does not include separately billed tests performed on this date of service.
Data:
Chest x-ray 01/13/2024-moderate left pleural effusion which is stable and left lower lobe infiltrate concerning for pneumonia also stable
Chest ultrasound 01/11/2024-small to moderate pleural effusion, thoracentesis canceled-not enough fluid for evacuation
Chest x-ray 01/19/2024-large left pleural effusion
Chest x-ray 01/20/2024-large left pleural effusion not significantly changed, borderline pulmonary edema with cephalization
Echo 01/19/2024: EF 50%, stage I DD, mild TR, PAP 35 to 40 mmHg, mild AL, pleural effusion present, trivial pericardial effusion. IVC is moderately dilated
Subjective Data
-
Date of Service:
Date of Service: January 25, 2024
Chief Complaint: Pulmonary Follow Up and Dyspnea Follow Up
Subjective:
Patient seen and evaluated today at bedside. On 3 L/min saturating 93%. Patient underwent LL quadrant drain placed by IR with 10 cc of purulent fluid sent for culture and sensitivities. She feels like she is still improving, with slight shortness
of breath with activity but overall she is improving; +fatigue. Very eager to get out of the hospital. She denies chest pain, headache, fevers or chills.
Review of Systems
General: Other (Negative unless mentioned above)
Objective Data
Data Reviewed
Vital Signs / I&O / Oxygen:
Vital Signs
Temp Pulse Resp BP Pulse Ox
98.5 F 88 18 135/72 93
01/25/24 11:26 01/25/24 13:18 01/25/24 13:18 01/25/24 11:26 01/25/24 11:26
Intake and Output
01/24/24 01/25/24 01/26/24
06:59 06:59 06:59
Intake Total 1070 / 1070 1450 / 1450
Output Total 52 / 52 3907 / 3907
Balance 1018 / 1018 -2457 / -2457
SaO2 93
Nasal Cannula flow liters per 3
minute
Physical Exam
General: Respiratory Distress (n), Comfortable, Chills (negative) and Other (deconditioned appearance)
HEENT: Normocephalic and Anicteric
Cardiovascular: S1-S2 and Peripheral Edema (Trace edema in lower extremities bilaterally)
Respiratory: Wheeze (negative), Crackles (Bilaterally), Rhonchi (negative), Non-Labored Respirations, Accessory Resp Muscle Use (n), Stridor (n) and Other (dullness on L, up to mid-thorax)
GI: Soft, Distended and Tender
Neurology: AO x 3 and Tremors (n)
Skin: Warm, Dry, Cyanosis (n) and Jaundice (n)
Labs/Micro/Reports
Lab Data
01/25/24 05:01
01/25/24 05:01
Microbiology
01/20/24 14:44 Pleural Fluid Body Fluid Culture - Final
No Growth After 72 Hours
01/20/24 14:44 Pleural Fluid Gram Stain - Final
--- NOTE | 2024-01-25 14:56 | W.PN.HOSP.TC ---
Today's Communication/Plan
-
CW DAKOTA drain and abx
CW IV lasix per cards
CW PT/OT tx
.
Assessment / Plan
Assessment / Plan
A/P:
Sigmoid diverticulitis with abscess:
-h/o diverticulosis/diverticulitis
-s/p abscess drainage 12/25/23 by IR. E. coli and Enterococcus Raffinosus on 01/12 wound cultures.
-with findings of massively distended right colon including the cecum on CT scan of the abdomen pelvis on January 03, 2024 the patient was taken to the OR for Exploratory laparotomy, takedown splenic flexure, creation end colostomy, omentectomy
-cw abx/ Zosyn per ID
-Status post abdominal drain on 01/12.
-Follow-up repeat blood cultures for recurrent fevers since 01/12 but so far no growth but initial wound cultures growing E. coli and Enterococcus Raffinosus
-Low residue diet per surgery
- Rpt CT A/P from 01/23 noted -cw LUQ drain per surgery
Leukocytosis:
Afebrile
Continue current antibiotics per ID
Improving trend now
Continue to trend .
PICC discontinued as one of the concern of leukocytosis.
Acute hypoxic respiratory insufficiency:
Now off of high flow oxygen for increased PEEP--> now down to 3 L of oxygen.
Continue to titrate oxygen as able.
Chest x-ray on 01/12 persistent moderate left pleural effusion-->Taken for possible thoracentesis on 01/10 but not enough fluid to be tapped. Discussed again with IR on 01/14 and not enough fluid.
Pulmonary following
Weight gain of 27 pounds noted over this admission. .BNP very high. Improving weight and oxygenation. Continue with the diuretics per cards.
Left pleural effusion s/p tap 01/19 - exudative - cx neg so far. Follow need for repeat tap.
Abnormal EKG-patient now has poor R waves in the anterior leads and also T wave inversion. Echo also showed low normal EF of 50%. Appreciate cardiology input.
Dyskinetic movements/Restless Legs:
-Psychiatry and neurology have decided to start her on Ingrezza. Seems to be working well. Pt feeling improved from her movements standpiont.
-Also started on amantadine.
-Stopped Requip and Neupro patch
-Started melatonin
-Remains on trazodone 100 mg as needed, Flexeril as needed, Dilaudid as needed; psych discussed with outpatient psychiatrist who felt she did not have manic episode but patient decided to continue Depakote. Depakote now discontinued .
-Seroquel stopped as Vfend increases serum concentration of Seroquel.
-Avoid antidopaminergic agents as much as possible
Thrombosis left upper extremity:
Superficial thrombosis in the left basilic vein (no DVT)
On Lovenox 40 mg daily for prevention DVT and will be enough for above plus local care.
PICC dced 01/19
Acute blood loss anemia:
-Aim to keep H&H more than 7. Follow blood work.
-s/p 4U pRBCs
Hyponatremia - pt was volume overloaded .Improving. Continue to follow
Other problems:
h/o pulmonary Aspergillus: since Apr 2023. cont Vfend.
Hyperkalemia, resolved
HLD
GERD: cont PPI
Anxiety/depression: Continue Trazodone PRN/Prozac/Depakote. Seroquel stopped by psych.
FULL/Lovenox
CW PT/OT eval/tx
DC planning when ok from surgical standpoint ;might need acute rehabs -will consult enrollment advisor when stable
Anticipated Discharge: > 48 hours
Subjective/Interval History
-
Date of Service: January 25, 2024
She is tolerating diet. Breathing is okay at rest. She is able to ambulate to the bathroom with some help. She feels deconditioned.
Objective Data
-
Labs:
Laboratory Results
01/25/24
05:01
WBC 15.1 H
Hgb 7.4 L
Hct 22.8 L
Plt Count 414 H
Sodium 132 L
Potassium 3.4 L
Chloride 86 L
Carbon Dioxide 40 H
BUN 6 L
Creatinine 0.5 L
Glucose 79
Calcium 8.3 L
Total Bilirubin 0.7
AST 54 H
ALT 28
Alkaline Phosphatase 232 H
Vital Signs:
Vital Signs
Temp Pulse Resp BP Pulse Ox
98.8 F 83 18 140/76 99
01/25/24 14:15 01/25/24 14:15 01/25/24 14:15 01/25/24 14:15 01/25/24 14:15
I&O
01/24/24 01/25/24 01/26/24
06:59 06:59 06:59
Intake Total 1070 / 1070 1450 / 1450
Output Total 52 / 52 3907 / 3907
Balance 1018 / 1018 -2457 / -2457
Review of Systems
-
Constitutional: Denies Fever
Cardiac: Denies Chest Pain
Abdomen/GI: Denies Nausea or Vomiting
Neuro: Denies Dizzy
Physical Exam
-
General: No Apparent Distress
HEENT: Moist Mucous Membranes
Respiratory: Non Labored Respirations and Decreased Breath Sounds (LT BASE); Negative Accessory Resp Muscle Use
Cardiac: Regular Rhythm and S1/S2
GI: Soft
Neuro: AO x 3
Psych: Calm
Data Reviewed
-
CT Scan: Report Reviewed by me (CT a/p from yesterday)
Labs: Labs Reviewed by me
--- NOTE | 2024-01-25 15:42 | W.PN.UPDATE ---
Update Note
Progress Note Update
Placed drain LLQ, yielding 10 cc purulent fluid. Sent for C+S.
[2024-01-25] MEDS: LOVENOX 40 MG SC (17:00)
[2024-01-25] MEDS: SINGULAIR 10 MG PO (17:00)
[2024-01-25] MEDS: MELATONIN 5 MG PO (21:34)
[2024-01-26] VITALS (9 sets, daily range): BP systolic 75–163; BP diastolic 64–100; PULSE 79; O2SAT 93; BMI 27.6
[2024-01-26] MEDS: ZOSYN 50 IV ×5 (01:01→23:27)
--- NOTE | 2024-01-26 03:29 | PTCARENOTE ---
While doing VS PCT reported pt found w/ o2 off - pox 76%. 3L O2 replaced and patient immediately returned to 93%.
[2024-01-26 06:12] LABS: Hematocrit 22.7 % (37.0-47.0); Hemoglobin 7.6 g/dL (12.0-16.0); Mean Corp Hgb Conc. 33.5 g/dL (33.0-37.0); Mean Corpuscular Hgb 29.2 pg (27.0-31.0); Mean Corpuscular Volume 87.3 fL (81.0-99.0); Mean Platelet Volume 8.7 fL (7.4-10.4); Platelet Count 404 10^3/uL (130-400); Red Cell Dist. Width 17.4 % (11.5-14.5); White Blood Cell Count 13.7 10^3/uL (4.8-10.8)
[2024-01-26 06:34] LABS: Blood Urea Nitrogen 5 mg/dl (7-17); Calcium 8.3 mg/dl (8.4-10.2); Carbon Dioxide 39 mmol/L (22-30); Chloride 86 mmol/L (98-107); Estimated Creatinine Clearance 109 ml/min; Glucose 93 mg/dl (70-99); Potassium 3.2 mmol/L (3.5-5.1); Sodium 131 mmol/L (135-145); eGFR > 60.00
--- NOTE | 2024-01-26 07:40 | W.PN.GS2 ---
Today's Communication / Plan
-
-- Thoracentesis today
-- NPO for procedure, cont low residue diet and encourage PO intake/supplements; okay for family to bring in food/supplements from home.
-- Daily dressing changes to midline incision, dry gauze packing to open area in middle of wound, will discuss with operating surgeon plan for staple removal?
Assessment / Plan
-
Assessment: 53 yo female with recent aspergillus pneumonia on home O2 and on recent steroids presenting with complicated diverticulitis with large pelvic abscess, failed initial nonoperative management now status post Garcia's procedure.
12/25/2023 s/p IR drainage of abscess cx with 2 strep species and 2 species of e.coli noted
01/03/2024 s/p exploratory laparotomy with takedown of splenic flexure, creation end colostomy with omentectomy
01/13/2024 s/p IR drain post op perisplenic fluid collection 01/14/24 cx with enterococcus/e. coli.
Off TPN since 01/12, on LRD
01/24/2024 Left lower quadrant DAKOTA that was previously draining pus dislodged. CT repeated with recurrent pleural effusion and fluid collection to the left mid/lower abd. No extravasation of contrast from the rectal stump.
AFVSS, O2 requirement
Leukocytosis trending down
H/H stable
Plan: Thoracentesis today
Continue local wound care
NPO for procedure, cont low residue diet and encourage PO intake/supplements; okay for family to bring in food/supplements from home.
Pain control: Tylenol, Oxycodone, IV Dilaudid PRN
Continue abx per ID recs
Ostomy teaching
Continue drains x2 to bulb suction, Flush IR drain daily.
Daily dressing changes to midline incision, dry gauze packing to open area in middle of wound, will discuss with operating surgeon plan for staple removal?
DVT: SCDs as tolerated. Lovenox sq
GI ppx: IV PPI
Pulmonary/medical management as per primary team
Subjective Data
-
Date of Service: January 26, 2024
Reports some LUQ discomfort, but overall stable. Slowly worsening SOB. No nausea or vomiting. Tolerating a diet. Ostomy functioning. Afebrile. Overall feeling slight improvement day by day.
Objective Data
-
Intake and Output
01/25/24 01/26/24 01/27/24
06:59 06:59 06:59
Intake Total 1450 / 1450 1900 / 1900
Output Total 3907 / 3907 1745 / 1745 250 / 250
Balance -2457 / -2457 155 / 155 -250 / -250
Intake:
Oral fluids 1200 / 1200 1740 / 1740
IV piggybacks 150 / 150
Amount instilled into Drain (
Total)
Left Upper Abdomen Placed in IR
Blood Product Amount Infused ( 250 / 250
mL)
Packed Rbc Leukoreduced Unit 250 / 250
[id number]
Output:
Drain Output (Total) 45
Left Lower Abdomen B 25
Left Upper Abdomen Placed in IR
Urine, Voided 3900 / 3900 1700 / 1700 250 / 250
Other:
Number of approximated SMALL 2
amounts of urine
Number of approximated MODERATE 2 5
amounts of urine
Vital Signs
Temp Pulse Resp BP Pulse Ox
98.4 F 73 20 111/64 93
01/26/24 03:26 01/26/24 03:26 01/26/24 03:26 01/26/24 03:26 01/26/24 03:26
Lab Results
01/26/24 05:42
01/26/24 05:42
Calcium 8.3 mg/dl (8.4-10.2) L 01/26/24 05:42
Phosphorus 3.8 mg/dl (2.5-4.5) 01/25/24 05:01
Magnesium 1.8 mg/dl (1.6-2.3) 01/25/24 05:01
Total Bilirubin 0.7 mg/dl (0.2-1.3) 01/25/24 05:01
AST 54 U/L (14-36) H 01/25/24 05:01
ALT 28 U/L (0-35) 01/25/24 05:01
Alkaline Phosphatase 232 U/L (38-126) H 01/25/24 05:01
Total Protein 4.8 g/dl (6.3-8.2) L 01/25/24 05:01
Albumin 2.2 g/dl (3.5-5.0) L 01/25/24 05:01
Physical Exam
-
Gen: NAD
Resp: supplemental O2, stable slight increased WOB
Abd: soft, mild tenderness, ND, non-peritoneal, midline dressing c/d/i, IR drains with thin minimal purulent output, ostomy viable - stool and flatus in appliance
[2024-01-26] MEDS: DUONEB 3 ML INH ×3 (07:45→19:46)
--- NOTE | 2024-01-26 09:01 | CM ---
CM reviewed chart- ADC >48 hours and no set ADC at this time
CM will continue to follow for dc planning
Acute recommended and [facility] referral pending
Multiple SNFs also following
Pt will require [employer] auth
Discharge Disposition- acute vs SNF
[2024-01-26] MEDS: SYMMETREL 100 MG PO ×2 (09:13→21:05)
[2024-01-26] MEDS: VITAMIN D3 (cholecalciferol) 25 MCG PO (09:13)
[2024-01-26] MEDS: LASIX 40 MG PO ×2 (09:13→17:15)
[2024-01-26] MEDS: PROZAC 20 MG PO (09:14)
[2024-01-26] MEDS: NSS (PRESERVATIVE FREE) 10 ML IV (09:14)
[2024-01-26] MEDS: KCL 40 MEQ PO ×2 (09:14→10:57)
[2024-01-26] MEDS: VFEND 200 MG PO ×2 (09:14→21:05)
[2024-01-26] MEDS: FOLVITE 1 MG PO (09:14)
[2024-01-26] MEDS: PROTONIX IV 40 MG IV (09:15)
[2024-01-26] MEDS: NON-FORMULARY ITEM 1 UNIT PO (09:15)
[2024-01-26] MEDS: ROXICODONE 5 MG PO ×4 (09:24→22:24)
--- NOTE | 2024-01-26 10:53 | W.PN.PUL3 ---
Today's Communication / Plan
-
L-sided chest tube tomorrow with tPA and dornase
Up OOB as tolerated
PT/OT � acute rehab s/p discharge
Pain control
Follow-up fluid Cx that was sent today from IR via thoracentesis, and add on glucose and cell count with diff
Also f/u Cx from IR via new catheter into pelvic abscess - placed 01/24
Assessment
-
53-year-old female with past medical history of recurrent diverticulitis, pulmonary aspergillosis, hyperlipidemia, anxiety/depression, and GERD who presents with abdominal pain. She apparently was recently treated for diverticulitis in October 2023
with Aug[address]in at [facility] in [place] where she resides. She also reported that she was treated this month for ongoing fungal lung infection with Aspergillus and also given additional antibiotics but unknown what names of these
medications are. She developed a fever about 5 days ago and continues to be on Augmentin for last 3 days. She was visiting her mother in [place] prior to arrival when the pain in her left lower quadrant became severe so she came here to the ""hospital for further care. She was afebrile in the ER to 98.6 �F, 79 pulse rate, breathing at 16 breaths/min, normotensive at 133/77 and saturating 100% on room air. Labs showed leukocytosis to 21.2, mild anemia to 11.5, mild hyponatremia to 134,
mild hyperkalemia to 5.6, and negative lipase of <10. CT A/P on admission showed severe sigmoid diverticulitis with large pericolonic abscess. She was given pain medications in the ER + Levaquin + IV fluids with NS x1L, and admitted to the
hospitalist service with general surgery consulted and antibiotics were started with Zosyn. She underwent IR CT-guided drainage on 12/24 with 170 cc of pale green purulent material seen - this later grew E. coli and group F Streptococcus. Patient
continues to be managed on the floor and was having issues with constipation. Repeat CT A/P performed on 01/02 showing decrease size in the abscess with pigtail drainage catheter seen in place, with massively distended right colon including the
cecum with stool distention and continued suspected distal descending colon/sigmoid diverticulitis. Given patient's worsening pain with distention and no flatus or BM in about 4 days, patient underwent exploratory laparotomy with splenic flexure
takedown, creation of end colostomy and omentectomy on 01/03/2024, and transferred to the ICU postoperatively. There was 150 cc of EBL and no immediate complications. Patient was stabilized and sent to the floor and pulmonary was reconsulted
01/12/2024 with ongoing hypoxemia.
Impression:
#Sigmoid diverticulitis s/p exploratory laparotomy with splenic flexure takedown, end colostomy creation and omentectomy � OR date: 01/12/2024
#Sigmoid diverticulitis c/b large pericolonic abscess s/p IR CT-guided drainage on 12/24 with purulent fluid growing E. coli + group F Streptococcus
#Constipation
#Leukocytosis
#Chronic anemia (unknown baseline but she has been between 8.5�11.5g/dL since admission)
#Lower lobe pulmonary bronchiectasis � likely due to her history of chronic pulmonary aspergillosis diagnosed in fall 2022
#History of pulmonary aspergillosis on voriconazole
#Left-sided pleural effusion status post thoracentesis on 01/20/2024 (exudative fluid with low glucose of 35) + repeat thoracentesis on 01/25
Plan:
Respiratory status improved after thoracentesis 01/20/2024 --> she has re- accumulation of left-sided pleural fluid and is underwent repeat thoracentesis today --> left effusion is highly loculated --> she will need a chest tube --> I will speak with
IR about getting this done tomorrow, and she may need tPA + dornase BID x 3 days
Supplemental oxygen as needed-currently on 3 L/min mid flow-attempt to wean as tolerated
Aspiration precautions
Incentive spirometry encouraged
Acapella
Mucus clearing devices
DuoNebs TID + budesonide BID prn
Singulair continues
Note that the patient takes Breo as an outpatient
Radiographs summarized below
Chest x-ray with significant increase in what appears to be pleural fluid from 01/13/2024 through 01/19/2024
Dr[address] Paulson contacted interventional radiology for thoracentesis 01/20/24--1000 mL clear yellow exudative pleural fluid
Chest x-ray 01/20/2024-no pneumothorax, small to moderate residual left pleural effusion significantly decreased
Cell count: pH 7.37 - wbc 561 - glu 35 - tp 3.1 - 4123 -- exudative, likely parapneumonic; superimposed pseudoexudate from diuresis cannot be ruled out
Culture negative to date, path pending
She also has low albumin state which may be contributing to pleural fluid buildup
She is underwent thoracentesis today (01/25); I will see if I can add on a pleural fluid glucose + cell count differential. She will likely need chest tube with lytic therapy to probably drain her left sided loculated effusion.
Upper right extremity ultrasound 01/20/2024-no evidence for DVT
Cultures reviewed
Continue antibiotics - pt was on Zosyn (started 12/24/2023) and then changed to Meropenem on 01/13, and as of 01/15 she is back on Zosyn
Infectious disease following-correspondence reviewed
Left upper quadrant collection-IR drainage 01/13/2024 --> grew Enterococcus raffinosus + E. coli
Prior LLQ acute [place] drain had dislodged and patient underwent reinsertion by IR on 01/24--> follow up fluid C+S (growing GNR)
Continue voriconazole for her history of pulmonary aspergillosis
Follow leukocytosis
Continue diuresis as tolerated
Monitor renal function, electrolytes, intake/output, lower extremity edema and weight
Replace electrolytes as needed
Cardiology following-correspondence reviewed-continue with IV diuresis
Surgery following-correspondence reviewed
Low residual diet per surgery
CT abdomen 01/12/2024-fluid collection left upper quadrant contains anterior air-fluid level compatible with abscess increased compared to 01/08/2024, irregular fluid collection within left pelvis and superimposed infection of this collection cannot be
excluded, pigtail catheter in posterior pelvis no evidence of collection in this area, bilateral pleural effusions left greater than right most likely atelectasis
She is on a low residue diet and seems to be tolerating it well
Intermittent CT abdomen to follow-up on collections --> less CT A/P on 01/24/2024 showing anterior left midline/LLQ small collection with trace mental stable fluid adjacent to the spleen, and free air within the peritoneum (expected post-procedure)
Neurology following due to tardive dyskinesia-correspondence reviewed
Restless legs still an issue-improved
Rotigotine patch now off
Continue amantadine and Ingrezza
DVT prophylaxis-on Lovenox
GI prophylaxis-on Protonix (she takes pantoprazole at home)
Nutrition per surgery
PT/OT --> rec'd acute rehab upon discharge
Pulmonary service will continue to follow along.
Outpatient pulmonary follow-up -she has a valver as well as an ID doctor in [place], [place], and I advised her to follow-up with those specialists once she is discharged.
Total time spent today was 35 minutes for this encounter. Time includes reviewing laboratory test/imaging results, reviewing pertinent medical records, obtaining and reviewing medical history, performing an appropriate exam, ordering medications,
tests and procedures. Time also includes documentation of this encounter, coordinating patient care and communicating with other healthcare professionals. Total time does not include separately billed tests performed on this date of service.
Data:
Chest x-ray 01/13/2024-moderate left pleural effusion which is stable and left lower lobe infiltrate concerning for pneumonia also stable
Chest ultrasound 01/11/2024-small to moderate pleural effusion, thoracentesis canceled-not enough fluid for evacuation
Chest x-ray 01/19/2024-large left pleural effusion
Chest x-ray 01/20/2024-large left pleural effusion not significantly changed, borderline pulmonary edema with cephalization
Chest x-ray 01/26/2024-Loculated moderate left pleural effusion. Mildly improved. No pneumothorax.
Echo 01/19/2024: EF 50%, stage I DD, mild TR, PAP 35 to 40 mmHg, mild SC, pleural effusion present, trivial pericardial effusion. IVC is moderately dilated
Subjective Data
-
Date of Service:
Date of Service: January 26, 2024
Chief Complaint: Pulmonary Follow Up and Dyspnea Follow Up
Subjective:
Patient seen and evaluated today at bedside. Fluid collected yesterday from IR is now growing GNR. Went for thoracentesis today, removing 150 cc from the left pleural cavity and fluid appears highly loculated on ultrasound. I saw the patient
after the thoracentesis. She feels fatigued, and malaise as she was NPO all day. Currently on 3 L/min nasal cannula breathing comfortably. She denies chest pain, shoulder pain, headache, fevers or chills.
Review of Systems
General: Other (Negative unless mentioned above)
Objective Data
Data Reviewed
Vital Signs / I&O / Oxygen:
Vital Signs
Temp Pulse Resp BP Pulse Ox
98.5 F 77 20 142/75 95
01/26/24 07:53 01/26/24 09:13 01/26/24 07:53 01/26/24 09:13 01/26/24 07:53
Intake and Output
01/25/24 01/26/24 01/27/24
06:59 06:59 06:59
Intake Total 1450 / 1450 1900 / 1900 20 / 20
Output Total 3907 / 3907 1745 / 1745 400 / 400
Balance -2457 / -2457 155 / 155 -380 / -380
SaO2 95
Nasal Cannula flow liters per 3
minute
Physical Exam
General: Respiratory Distress (n), Comfortable, Chills (negative) and Other (deconditioned appearance)
HEENT: Normocephalic and Anicteric
Cardiovascular: S1-S2 and Peripheral Edema (Trace edema in lower extremities bilaterally)
Respiratory: Wheeze (negative), Crackles (Bilaterally), Rhonchi (negative), Non-Labored Respirations, Accessory Resp Muscle Use (n), Stridor (n) and Other (dullness on L in base to left middle lung field)
GI: Soft, Distended and Tender
Neurology: AO x 3 and Tremors (n)
Skin: Warm, Dry, Cyanosis (n) and Jaundice (n)
Labs/Micro/Reports
Lab Data
01/26/24 05:42
01/26/24 05:42
Microbiology
01/25/24 15:56 Abscess Gram Stain - Preliminary
01/20/24 14:44 Pleural Fluid Body Fluid Culture - Final
No Growth After 72 Hours
01/20/24 14:44 Pleural Fluid Gram Stain - Final
--- NOTE | 2024-01-26 11:07 | W.PN.UPDATE ---
Update Note
Progress Note Update
Patient seen at bedside, chart reviewed, discussed with staff. Ms. Gonzalez is somewhat sedated this AM after receiving pain medications and minimally interested in conversation. No complaints to offer otherwise. She is anticipated for a thoracentesis
for today. Reportedly tolerating Ingrezza.
Imp/Rec: Unspecified depressive/mood d/o, appears stable
Dyskinesia, improving
No med changes, psych will follow.
[2024-01-26 11:18] LABS: Magnesium 1.8 mg/dl (1.6-2.3)
--- NOTE | 2024-01-26 11:20 | W.PN.CARDCBS ---
Addendum entered and electronically signed by Parmjit So MD 01/26/24 12:43:
I saw and examined the patient.
The PLATE GLASS GRINDER or PA's note was reviewed and I agree with the note.
Comment: General: Well developed, well nourished in NAD.
Neck: Supple, no JVD, HJR, carotids +2 B/L, no bruits bilaterally.
Heart: Non displaced PMI, RRR, no murmurs, No S3, S4, no rubs.
Lungs: Decreased breath sounds left base
Extremities: No clubbing, cyanosis or edema bilaterally.
Neuro: Grossly nonfocal, awake, alert and oriented x3.
Volume status appears reasonable although hopefully left thoracentesis will help. Changed to Lasix 40 mg daily. She is severely deconditioned after 33 days in the hospital and likely needs rehab. Telemetry with brief nonsustained V. tach and will
assess with repletion of potassium
Original Note:
Today's Communication / Plan
-
For repeat left thoracentesis today. Would send fluid for analysis
Continue Lasix, transition to 40 mg p.o. twice daily
Replete K, check magnesium
Continue postoperative care
Impression / Plan
-
PCP: Iva Benton
General Internist: None prior to admission, initial consultation Dr. Carranza
Impression:
Presented 12/24/2023 with acute abdominal pain
Sigmoid diverticulitis with diverticular abscess
s/p IR drainage grew E. coli and group F Streptococcus (12/25/23)
s/p exploratory lap, colostomy (01/03/24)
s/p IR drainage perisplenic fluid (01/13/24)
Leukocytosis
Acute on chronic anemia
4 units PRBCs so far this admission
Superficial thrombosis of left basilic vein (no DVT)
Abnormal EKG
Acute hypoxic respiratory insufficiency
Left-sided pleural effusion
s/p Lt thoracentesis for 1 L 01/20/24
Acute HFpEF, proBNP 12,800
Hx Pulmonary aspergillosis voriconazole as outpatient
Bronchiectasis
Recurrent diverticulitis
Anxiety/depression
Hx steroid-induced psychosis
GERD
Asthma
Hyperlipidemia
Obesity
Spontaneous right carotid dissection discovered after ongoing migraine headaches in ~2021 Treated conservatively with DAPT
Restless legs syndrome
Tardive dyskinesia
Echo 01/19/2024: EF 50%, stage I DD, mild TR, PAP 35 to 40 mmHg, mild NM, pleural effusion present, trivial pericardial effusion. IVC is moderately dilated
Plan:
-Patient lethargic
-Weight continues to trend down if accurate. Transitioned to 40 mg p.o. Lasix twice daily 01/26/2024. Creatinine stable. Dry weight unknown, as appears lower than admission weight. She was not taking diuretic prior to admission
-For repeat left thoracentesis today
-Continue Tubigrip compression to bilateral lower extremity
-In sinus rhythm with occasional ventricular bigeminy, 1 6 beat run of NSVT. Replete K. Check magnesium
-Eventual outpatient ischemic evaluation for anterolateral T wave changes on ECG 01/19/24
-Patient has received a total of 4 units PRBCs this admission. Hemoglobin 7.6
-Continue postop care per general surgery. s/p LLQ drain in IR 01/24.
-PT/OT
HPI: Patient is a 53-year-old female with past medical history significant for recurrent diverticulitis, pulmonary aspergillosis, hyperlipidemia, anxiety/depression, GERD and chronic anemia who presented to emergency department 12/24/2023 with acute
abdominal pain and fever. She was noted to have sigmoid diverticulitis with diverticular abscess and underwent IR drainage 12/25/2023. Due to constipation with distention and absent bowel sounds she underwent exploratory laparotomy with splenic
flexure takedown, creation of end colostomy and omentectomy on 01/03/2024. She underwent IR drainage of perisplenic fluid on 01/13/2024. Patient being followed closely by ID on antibiotics. Patient was n.p.o. for extended period of time and recently
advanced to low resolution diet. Patient received considerable volume throughout her hospitalization and has had 27 pound weight gain. Patient now with worsening shortness of breath, hypoxemia. Chest x-ray from 01/20/2024 shows large left pleural
fluid collection with indwelling left-sided chest tube and borderline pulmonary edema with cephalization of pulmonary vasculature. proBNP performed on 01/20/2024 noted to be elevated at 12,800. EKG performed on 01/19/2024 showed sinus rhythm with
new T wave abnormality in anterolateral leads which was not present on admission. She underwent an echocardiogram which demonstrated mildly reduced ejection fraction of 50% with elevated pulmonary pressures. Cardiology being asked to see patient
for concerns of acute heart failure and abnormal EKG.
Progress Note - General Internist
Subjective
Date of Service: January 26, 2024
Patient lethargic. Denies chest pain, shortness of breath
Objective
Labs:
01/26/24 05:42
01/26/24 05:42
Labs
Hgb 7.6 g/dL (12.0-16.0) L 01/26/24 05:42
Hct 22.7 % (37.0-47.0) L 01/26/24 05:42
Plt Count 404 10^3/uL (130-400) H 01/26/24 05:42
PT 15.3 Sec (11.4-14.6) H 01/06/24 15:22
INR 1.21 01/06/24 15:22
APTT 35.6 Sec (23.4-35.0) H 01/06/24 15:22
Sodium 131 mmol/L (135-145) L 01/26/24 05:42
Potassium 3.2 mmol/L (3.5-5.1) L 01/26/24 05:42
BUN 5 mg/dl (7-17) L 01/26/24 05:42
Creatinine 0.4 mg/dL (0.6-1.0) L 01/26/24 05:42
Glucose 93 mg/dl (70-99) 01/26/24 05:42
Vital Signs and I&O:
Vital Signs
Temp Pulse Resp BP Pulse Ox
98.5 F 77 20 142/75 95
01/26/24 07:53 01/26/24 09:13 01/26/24 07:53 01/26/24 09:13 01/26/24 07:53
Vital Signs
Temp Pulse Resp BP Pulse Ox
98.5 F 77 20 142/75 95
01/26/24 07:53 01/26/24 09:13 01/26/24 07:53 01/26/24 09:13 01/26/24 07:53
Intake & Output
01/24/24 01/25/24 01/26/24 01/27/24
07:59 07:59 07:59 07:59
Intake Total 1070 / 1070 1450 / 1450 1900 / 1900
Output Total 52 / 52 3907 / 3907 1994 150 / 150
Balance 1018 / 1018 -2457 / -2457 -95 / -95 -130 / -130
Physical Exam
Physical Exam
GEN: No distress, awake, but lethargic. Sitting in chair
HEENT: supple, anicteric, mmm
LUNGS: CTA anterolaterally, no wheezes
CV: Reg, S1/S2, no murmur
EXT: No clubbing, cyanosis, edema
NEURO: Gross non-focal
SKIN: Warm, pink, dry. No rash
--- NOTE | 2024-01-26 14:53 | WOUNDNOTE ---
ELISE RN NOTE: Patient sitting in chair getting breathing treatment. Ostomy appliance intact no leakage. Brought additional convex wafers to bedside. Will plan on changing appliance tomorrow, patient and nurse aware.
--- NOTE | 2024-01-26 15:55 | W.PN.HOSP.TC ---
Today's Communication/Plan
-
For left thoracentesis
VBG
Follow alkalosis
Lasix switched to PO
CW ABX
CW PT
Assessment / Plan
Assessment / Plan
A/P:
Sigmoid diverticulitis with abscess:
-h/o diverticulosis/diverticulitis
-s/p abscess drainage 12/25/23 by IR. E. coli and Enterococcus Raffinosus on 01/12 wound cultures.
-with findings of massively distended right colon including the cecum on CT scan of the abdomen pelvis on January 03, 2024 the patient was taken to the OR for Exploratory laparotomy, takedown splenic flexure, creation end colostomy, omentectomy
-cw abx/ Zosyn per ID
-Status post abdominal drain on 01/12.
-Follow-up repeat blood cultures for recurrent fevers since 01/12 but so far no growth but initial wound cultures growing E. coli and Enterococcus Raffinosus
-Low residue diet per surgery
- Rpt CT A/P from 01/23 noted -cw LUQ drain per surgery
Leukocytosis:
Afebrile
Continue current antibiotics per ID
Improving trend now
Continue to trend .
PICC discontinued as one of the concern of leukocytosis.
Acute hypoxic respiratory insufficiency:
Now off of high flow oxygen for increased PEEP--> now down to 3 L of oxygen.
Continue to titrate oxygen as able.
Chest x-ray on 01/12 persistent moderate left pleural effusion-->Taken for possible thoracentesis on 01/10 but not enough fluid to be tapped. Discussed again with IR on 01/14 and not enough fluid.
Pulmonary following
Weight gain of 27 pounds noted over this admission. .BNP very high. Improving weight and oxygenation. Continue with the diuretics per cards. Met alkalosis noted -check VBG to check for PH -can contribute to her memory issue among other things
Left pleural effusion s/p tap 01/19 - exudative - cx neg so far. For repeat Thoro today.
Abnormal EKG-patient now has poor R waves in the anterior leads and also T wave inversion. Echo also showed low normal EF of 50%. Appreciate cardiology input.
Dyskinetic movements/Restless Legs:
-Psychiatry and neurology have decided to start her on Ingrezza. Seems to be working well. Pt feeling improved from her movements standpiont.
-Also started on amantadine.
-Stopped Requip and Neupro patch
-Started melatonin
-Remains on trazodone 100 mg as needed, Flexeril as needed, Dilaudid as needed; psych discussed with outpatient psychiatrist who felt she did not have manic episode but patient decided to continue Depakote. Depakote now discontinued .
-Seroquel stopped as Vfend increases serum concentration of Seroquel.
-Avoid antidopaminergic agents as much as possible
Thrombosis left upper extremity:
Superficial thrombosis in the left basilic vein (no DVT)
On Lovenox 40 mg daily for prevention DVT and will be enough for above plus local care.
PICC dced 01/19
Acute blood loss anemia:
-Aim to keep H&H more than 7. Follow blood work.
-s/p 4U pRBCs
Hyponatremia - pt was volume overloaded .Improving. Continue to follow
Other problems:
h/o pulmonary Aspergillus: since Apr 2023. cont Vfend.
Hyperkalemia, resolved
HLD
GERD: cont PPI
Anxiety/depression: Continue Trazodone PRN/Prozac/Depakote. Seroquel stopped by psych.
FULL/Lovenox
CW PT/OT eval/tx
Anticipated Discharge: > 48 hours
Subjective/Interval History
-
Date of Service: January 26, 2024
Today RN noticed that to be a bit forgetful.
Patient thinks it is because she is n.p.o. since midnight for the procedure. Recall was 2 out of 3 objects. She is alert and oriented to place, day of the week, month and the year.
Objective Data
-
Labs:
Laboratory Results
01/26/24
05:42
WBC 13.7 H
Hgb 7.6 L
Hct 22.7 L
Plt Count 404 H
Sodium 131 L
Potassium 3.2 L
Chloride 86 L
Carbon Dioxide 39 H
BUN 5 L
Creatinine 0.4 L
Glucose 93
Calcium 8.3 L
Vital Signs:
Vital Signs
Temp Pulse Resp BP Pulse Ox
97.7 F 81 16 143/78 97
01/26/24 11:17 01/26/24 13:50 01/26/24 13:50 01/26/24 11:17 01/26/24 13:50
I&O
01/25/24 01/26/24 01/27/24
06:59 06:59 06:59
Intake Total 1450 / 1450 1900 / 1900 20 / 20
Output Total 3907 / 3907 1745 / 1745 400 / 400
Balance -2457 / -2457 155 / 155 -380 / -380
Review of Systems
-
Respiratory: Denies Trouble Breathing
Cardiac: Denies Chest Pain
Abdomen/GI: Denies Nausea or Vomiting
Neuro: Denies Dizzy or Headache
Physical Exam
-
General: No Apparent Distress
HEENT: Moist Mucous Membranes
Respiratory: Decreased Breath Sounds (left base); Negative Wheezes or Crackles
Cardiac: Regular Rhythm and S1/S2
GI: Soft and Ostomy
Neuro: AO x 3
Data Reviewed
-
Labs: Labs Reviewed by me
[2024-01-26 16:40] LABS: Body Fluid pH 7.23
[2024-01-26 17:02] LABS: Body Fluid Protein 3.5 g/dl
[2024-01-26 17:12] LABS: Venous Blood Gas B.E. 11.6 mmol/L (-4 to +4); Venous Blood Gas HCO3 38.5 mmol/L (22-27); Venous Blood Gas O2 Sat % 74.1 %; Venous Blood Gas pCO2 65 mmHg (35-48); Venous Blood Gas pH 7.38 (7.32-7.43); Venous Blood Gas pO2 45 mmHg (30-50)
[2024-01-26] MEDS: LOVENOX 40 MG SC (17:15)
[2024-01-26] MEDS: SINGULAIR 10 MG PO (17:15)
[2024-01-26 18:33] LABS: Body Fluid LDH 4668 U/L
[2024-01-26 20:27] LABS: Body Fluid WBC 650 /CUMM
[2024-01-26 20:29] LABS: Body Fluid Second Tech EYM
[2024-01-26 20:41] LABS: Body Fluid Glucose < 30 mg/dl
[2024-01-26] MEDS: MELATONIN 5 MG PO (21:04)
[2024-01-26] MEDS: FLEXERIL 5 MG PO (22:25)
[2024-01-27] VITALS (14 sets, daily range): BP systolic 83–171; BP diastolic 68–104; BMI 26.8
--- NOTE | 2024-01-27 03:54 | DOWNTIME ---
There was a [employer] Downtime on 01/27/2024 from 0100 to 01/27/2024 at 0337. Downtime documentation of patient's care, including medication administrations, has been reconciled in the electronic record per guidelines. Refer to the
patient's paper chart under the miscellaneous tab to see printed paper medication records and downtime forms.
[2024-01-27] MEDS: DUONEB 3 ML INH ×3 (06:00→19:39)
[2024-01-27] MEDS: ZOSYN 50 IV (06:22)
--- NOTE | 2024-01-27 08:29 | W.PN.HOSP.TC ---
Today's Communication/Plan
-
Adjusted IV antibiotics. Pulmonary eval for possible chest tube.
Assessment / Plan
Assessment / Plan
Physical exam:
General: Acute and chronically ill
HEENT: Normocephalic, Atraumatic and Moist Mucous Membranes
Respiratory: Clear to Auscultation; Negative Wheezes, Rales or Rhonchi
Cardiac: Regular Rhythm and S1/S2
GI: Soft, postop findings, drain with active drainage, non tender and Nondistended
Musculoskeletal: No Clubbing, No Cyanosis and No Edema
Neuro: Awake, Alert and Oriented
Psych: Calm
A/P:
Sigmoid diverticulitis with abscess:
-h/o diverticulosis/diverticulitis
-s/p abscess drainage 12/25/23 by IR. E. coli resistant to Zosyn from 12/24. E. coli pansensitive and Enterococcus Raffinosus on 01/12 wound cultures.
-with findings of massively distended right colon including the cecum on CT scan of the abdomen pelvis on January 03, 2024 the patient was taken to the OR for Exploratory laparotomy, takedown splenic flexure, creation end colostomy, omentectomy
-ID changed antibiotics to IV ampicillin and IV Fortaz based on sensitivities today on 01/26.
-Status post abdominal drain on 01/12.
-Follow-up repeat blood cultures for recurrent fevers since 01/12 but so far no growth but initial wound cultures growing E. coli and Enterococcus Raffinosus
-Low residue diet per surgery
- Rpt CT A/P from 01/23 noted -cw LUQ drain per surgery
-Repeated labs today
-Discussed with surgery in person today on 01/26
Pleural effusion:
Pulmonary recommended chest tube and I placed IR consult for chest tube today.
Patient is hesitant and would like to discuss with pulmonary more in details today. Discussed with pulmonary and they will come and explained to patient today the need for.
Prior to today:
Left pleural effusion s/p tap 01/19 - exudative - cx neg so far. For repeat Thoro
Leukocytosis:
Afebrile
Continue current antibiotics per ID
Improving trend now
Continue to trend .
PICC discontinued as one of the concern of leukocytosis.
Acute hypoxic respiratory insufficiency:
Now off of high flow oxygen for increased PEEP--> now down to 3 L of oxygen.
Continue to titrate oxygen as able.
Chest x-ray on 01/12 persistent moderate left pleural effusion-->Taken for possible thoracentesis on 01/10 but not enough fluid to be tapped. Discussed again with IR on 01/14 and not enough fluid.
Pulmonary following
Weight gain of 27 pounds noted over this admission. .BNP very high. Improving weight and oxygenation. Continue with the diuretics per cards. Met alkalosis noted -check VBG to check for PH -can contribute to her memory issue among other things
Abnormal EKG-patient now has poor R waves in the anterior leads and also T wave inversion. Echo also showed low normal EF of 50%. Appreciate cardiology input.
Dyskinetic movements/Restless Legs:
-Psychiatry and neurology have decided to start her on Ingrezza. Seems to be working well. Pt feeling improved from her movements standpiont.
-Also started on amantadine.
-Stopped Requip and Neupro patch
-Started melatonin
-Remains on trazodone 100 mg as needed, Flexeril as needed, Dilaudid as needed; psych discussed with outpatient psychiatrist who felt she did not have manic episode but patient decided to continue Depakote. Depakote now discontinued .
-Seroquel stopped as Vfend increases serum concentration of Seroquel.
-Avoid antidopaminergic agents as much as possible
Thrombosis left upper extremity:
Superficial thrombosis in the left basilic vein (no DVT)
On Lovenox 40 mg daily for prevention DVT and will be enough for above plus local care.
PICC dced 01/19
Acute blood loss anemia:
-Aim to keep H&H more than 7. Follow blood work.
-s/p 4U pRBCs
Hyponatremia - pt was volume overloaded .Improving. Continue to follow
Other problems:
h/o pulmonary Aspergillus: since Apr 2023. cont Vfend.
Hyperkalemia, resolved
HLD
GERD: cont PPI
Anxiety/depression: Continue Trazodone PRN/Prozac/Depakote. Seroquel stopped by psych.
FULL/Lovenox
CW PT/OT eval/tx
Time spent 50 minutes.
Anticipated Discharge: > 48 hours
Subjective/Interval History
-
Date of Service: January 27, 2024
Patient denies any worsening chest pain or shortness of breath. No worsening abdominal pain. Afebrile
Objective Data
-
Labs:
Laboratory Results
01/27/24
08:25
WBC Pending
Hgb Pending
Hct Pending
Plt Count Pending
Sodium Pending
Potassium Pending
Chloride Pending
Carbon Dioxide Pending
BUN Pending
Creatinine Pending
Glucose Pending
Calcium Pending
Total Bilirubin Pending
AST Pending
ALT Pending
Alkaline Phosphatase Pending
Vital Signs:
Vital Signs
Temp Pulse Resp BP Pulse Ox
97.7 F 87 18 140/104 94
01/27/24 07:59 01/27/24 07:59 01/27/24 07:59 01/27/24 07:59 01/27/24 07:59
I&O
01/26/24 01/27/24 01/28/24
06:59 06:59 06:59
Intake Total 1900 / 1900 730 / 730
Output Total 1745 / 1745 448 / 448
Balance 155 / 155 282 / 282
[2024-01-27 08:48] LABS: % Basophils 0.6 % (0-2); % Eosinophils 0.8 % (0-6); % Immature Granulocytes 0.6 % (0-0.5); % Lymphocytes 8.2 % (20.5-51.1); % Monocytes 11.1 % (1.7-9.3); % Neutrophils 78.7 % (42.2-75.2); Absolute Basophils 0.1 10^3/uL (0-0.2); Absolute Eosinophils 0.1 10^3/uL (0-0.7); Absolute Immature Granulocytes 0.1 10^3/uL (0-0.05); Absolute Monocytes 1.4 10^3/uL (0.1-0.6); Absolute Neutrophils 9.9 10^3/uL (1.4-6.5); Hematocrit 26.2 % (37.0-47.0); Hemoglobin 8.8 g/dL (12.0-16.0); Mean Corp Hgb Conc. 33.6 g/dL (33.0-37.0); Mean Corpuscular Hgb 29.7 pg (27.0-31.0); Mean Corpuscular Volume 88.5 fL (81.0-99.0); Mean Platelet Volume 8.9 fL (7.4-10.4); Nucleated Red Blood Cells % 0 %; Platelet Count 471 10^3/uL (130-400); Red Blood Cell Count 2.96 10^6/uL (4.20-5.40); Red Cell Dist. Width 17.9 % (11.5-14.5); White Blood Cell Count 12.6 10^3/uL (4.8-10.8)
--- NOTE | 2024-01-27 09:32 | W.PN.ID1 ---
Date of Service
Date of Service: January 27, 2024
Today's Communication
Continue antibiotics. Change to ampicillin and Fortaz based upon covered susceptibilities.
Assessment / Plan
Diverticular abscess
- s/p IR drainage (12/25/23)
- s/p exploratory lap, colostomy (01/03/24)
- s/p IR drainage perisplenic fluid (01/13/24)
Leukocytosis
-Improved today.
Hx Pulmonary aspergillosis; on Vfend as outpatient.
Recurrent diverticulitis
Anxiety/depression
Hx steroid-induced psychosis
GERD
Asthma
Recommendations:
Left upper quadrant abscess; s/p IR drainage 01/13/2024; recultured 01/24 and recovered E. coli now zosyn-resistant. Prior Enterococcus raffinosus (amp. sensitive)
Repeat CT revealed near complete drainage of left upper quadrant collection. A large left-sided pleural effusion is noted; s/p tap 01/25; may need CT placement.
Leukocytosis improved today.
D/C Zosyn; transition to ampicillin / fortaz.
Continue to monitor white count and temperature curve.
Continue with voriconazole (suspect for ABPA)
����������������������������������������������������������
Chief Complaint
-: Leukocytosis and Other (Diverticulitis; diverticular abscess)
Subjective / Review of Systems
Review of Systems: No Fever and No Chills
Vital Signs / Physical Exam
Vital Signs
Vital Signs
Temp Pulse Resp BP Pulse Ox
97.7 F 87 18 140/104 94
01/27/24 07:59 01/27/24 07:59 01/27/24 07:59 01/27/24 07:59 01/27/24 07:59
Physical Exam
Constitutional: No Acute Distress, Comfortable and Non-toxic
Eyes: Sclera Anicteric
Cardiovascular: S1/S2; Negative S3/S4
Pulmonary: Non Labored
Gastrointestinal: Soft, Non Tender, Non Distended, Normal Bowel Sounds and Other (DAKOTA's in place with purulent drainage.)
Genito-Urinary: Negative Calles
Extremities: Negative Edema, Cyanosis or Erythema
Skin: Negative Rash or Jaundice
Neurological: Awake, Alert and AO x 3
Psychological: Calm
Objective Data
Lab Data
Lab Results
01/27/24 08:25
PT 15.3 Sec (11.4-14.6) H 01/06/24 15:22
INR 1.21 01/06/24 15:22
APTT 35.6 Sec (23.4-35.0) H 01/06/24 15:22
Estimated Creat Clear 109 ml/min 01/26/24 05:42
Lactic Acid Cancelled 01/04/24 09:00
Total Bilirubin 0.7 mg/dl (0.2-1.3) 01/25/24 05:01
AST 54 U/L (14-36) H 01/25/24 05:01
ALT 28 U/L (0-35) 01/25/24 05:01
Alkaline Phosphatase 232 U/L (38-126) H 01/25/24 05:01
Most recent labs reviewed.
Micro Results:
01/25/24 15:56 Wound Culture - Preliminary
Abscess Escherichia coli
Gram Stain - Preliminary
01/26/24 16:12 Body Fluid Culture - Pending
Pleural Fluid Gram Stain - Preliminary
01/20/24 14:44 Body Fluid Culture - Final
Pleural Fluid No Growth After 72 Hours
Gram Stain - Final
01/13/24 20:22 Blood Culture - Final
Blood/Venous No Growth - Final Report
01/13/24 18:56 Blood Culture - Final
Blood/Venous No Growth - Final Report
01/15/24 10:08 Respiratory Culture - Final
Sputum Gram Stain - Final
01/13/24 13:00 Wound Culture - Final
Abscess Enterococcus raffinosus
Escherichia coli
Gram Stain - Final
01/09/24 14:28 Nasal Screen MRSA (PCR) - Final
Nose MRSA not detected - performed by PCR methodology.
12/26/23 14:43 Blood Culture - Final
Blood/Venous No Growth - Final Report
12/26/23 12:59 Blood Culture - Final
Blood/Venous No Growth - Final Report
12/25/23 17:30 Wound Culture - Final
Abscess Escherichia coli
Escherichia coli#2
Streptococcus species
Group F Streptococcus
Gram Stain - Final
Wound/abscess/other Cult Final 12/28/23-820
Many 1st strain Escherichia coli
Few 2nd strain Escherichia coli
Many Streptococcus species of two morphotypes
Moderate Group F Streptococcus*
1. Escherichia coli
M.I.C. RX
--------- ---
Amoxicillin/Potas. Clavulanate 16/8 I
Ampicillin >16 R
Ampicillin/Sulbactam >16/8 R
Cefazolin >16 R
Cefepime <=2 S
Ceftazidime <=1 S
Ceftriaxone <=1 S
Ertapenem <=0.5 S
Ciprofloxacin <=0.25 S
Gentamicin >8 R
Levofloxacin <=0.5 S
Meropenem <=1 S
Piperacillin/Tazobactam <=16 S
Tobramycin 8 I
Trimethoprim/Sulfamethoxazole >2/38 R
2. Escherichia coli#2
M.I.C. RX
--------- ---
Amoxicillin/Potas. Clavulanate <=8/4 S
Ampicillin >16 R
Ampicillin/Sulbactam >16/8 R
Cefazolin 16 R
Cefepime <=2 S
Ceftazidime <=1 S
Ceftriaxone <=1 S
Ertapenem <=0.5 S
Ciprofloxacin <=0.25 S
Gentamicin <=4 S
Levofloxacin <=0.5 S
Meropenem <=1 S
Piperacillin/Tazobactam <=16 S
Tobramycin <=4 S
Trimethoprim/Sulfamethoxazole > R
Imaging:
01/12/2024 CT abdomen/pelvis with contrast: There is a focal predominantly fluid collection in the left upper quadrant, which contains an anterior air-fluid level, compatible with an abscess. This has increased compared to examination of January 07,
2023. Of note, this collection is along the anterior margin of the spleen, without a well-defined plane between the collection and the spleen. There is also an irregular fluid collection within the left pelvis as described, and superimposed
infection of this collection cannot be excluded. There is a pigtail catheter in the left posterior pelvis, entering to the left gluteal region, with no evidence of a collection adjacent to this catheter. Subcutaneous edema, greater in both flanks.
Bilateral pleural effusions, left greater than right. Parenchymal opacity within both lower lobes, greater on the left compared to the right. This is most likely atelectasis, although underlying pneumonia difficult to completely exclude
radiographically.
01/03/2024 CT abdomen/pelvis: Markedly decreased posterior true pelvis abscess in comparison to prior pre-op chest drainage study with pigtail drainage catheter seen in the soft tissues of the left posterior true pelvis. Massively distended right
colon including cecum (cecum measuring up to 12 cm) with marked maximal colonic stool as well as gaseous distention of transverse and proximal descending colon, moderate stool with distention of the distal descending and sigmoid colon, limited in
evaluation without oral contrast opacification. Thickening Of the wall of the distal descending and proximal sigmoid colon which could represent colitis or diverticulitis. Partially obstructing distal colonic mass with inflammation cannot be
excluded. No free air. Please see full dictation for additional detail.
[2024-01-27 09:37] LABS: ALT (SGPT) 30 U/L (0-35); AST (SGOT) 60 U/L (14-36); Albumin 2.7 g/dl (3.5-5.0); Alkaline Phosphatase 261 U/L (38-126); Blood Urea Nitrogen 6 mg/dl (7-17); Calcium 8.7 mg/dl (8.4-10.2); Carbon Dioxide 33 mmol/L (22-30); Chloride 88 mmol/L (98-107); Estimated Creatinine Clearance 109 ml/min; Glucose 93 mg/dl (70-99); Magnesium 1.7 mg/dl (1.6-2.3); Potassium 3.6 mmol/L (3.5-5.1); Sodium 131 mmol/L (135-145); Total Protein 5.7 g/dl (6.3-8.2); eGFR > 60.00
[2024-01-27] MEDS: VFEND 200 MG PO ×2 (09:39→21:16)
[2024-01-27] MEDS: SYMMETREL 100 MG PO ×2 (09:40→19:53)
[2024-01-27] MEDS: KCL 40 MEQ PO (09:40)
[2024-01-27] MEDS: PROZAC 20 MG PO (09:40)
[2024-01-27] MEDS: LASIX 40 MG PO ×2 (09:40→17:43)
[2024-01-27] MEDS: FOLVITE 1 MG PO (09:40)
[2024-01-27] MEDS: VITAMIN D3 (cholecalciferol) 25 MCG PO (09:40)
[2024-01-27] MEDS: NSS (PRESERVATIVE FREE) 10 ML IV (09:41)
[2024-01-27] MEDS: PROTONIX IV 40 MG IV (09:41)
[2024-01-27] MEDS: NON-FORMULARY ITEM 1 UNIT PO (09:42)
[2024-01-27] MEDS: FORTAZ 2000 MG IV ×2 (09:55→19:51)
[2024-01-27] MEDS: STERILE WATER FOR INJECTION 20 ML IV (09:56)
--- NOTE | 2024-01-27 11:00 | W.PN.GS2 ---
Today's Communication / Plan
-
Chest tube planned today per Pulm
Nothing further to add from GS standpoint
Likely will need DC to rehab facility
Assessment / Plan
-
Assessment: 53 yo female with recent aspergillus pneumonia on home O2 and on recent steroids presenting with complicated diverticulitis with large pelvic abscess, failed initial nonoperative management now status post Garcia's procedure.
12/25/2023 s/p IR drainage of abscess cx with 2 strep species and 2 species of e.coli noted
01/03/2024 s/p exploratory laparotomy with takedown of splenic flexure, creation end colostomy with omentectomy
01/13/2024 s/p IR drain post op perisplenic fluid collection 01/14/24 cx with enterococcus/e. coli.
Off TPN since 01/12, on LRD
01/24/2024 Left lower quadrant DAKOTA that was previously draining pus dislodged. CT repeated with recurrent pleural effusion and fluid collection to the left mid/lower abd. No extravasation of contrast from the rectal stump.
AFVSS, O2 requirement
Leukocytosis trending down
H/H stable
Plan: Chest tube planned for today per Pulm
Continue local wound care
NPO for procedure, cont low residue diet and encourage PO intake/supplements; okay for family to bring in food/supplements from home.
Pain control: Tylenol, Oxycodone, IV Dilaudid PRN
Continue abx per ID recs
Ostomy teaching
Continue drains to bulb suction, Flush IR drain daily.
Daily dressing changes to midline incision, dry gauze packing to open area in middle of wound, plan to remove heaven day of DC
DVT: SCDs as tolerated. Lovenox sq
GI ppx: IV PPI
Pulmonary/medical management as per primary team
Subjective Data
-
Date of Service: January 27, 2024
Feeling better and stronger every day
Objective Data
-
Intake and Output
01/26/24 01/27/24 01/28/24
06:59 06:59 06:59
Intake Total 1900 / 1900 730 / 730
Output Total 1745 / 1745 448 / 448
Balance 155 / 155 282 / 282
Intake:
Oral fluids 1740 / 1740 550 / 550
IV fluids (Total) 40 / 40
IV piggybacks 150 / 150 100 / 100
Amount instilled into Drain ( 40 / 40
Total)
Left Lower Abdomen B
Left Upper Abdomen Placed in IR
Output:
Drain Output (Total) 45 / 45 48 / 48
Left Lower Abdomen B 38 / 38
Left Upper Abdomen Placed in IR
Urine, Voided 1700 / 1700 400 / 400
Other:
Number of approximated SMALL 2
amounts of urine
Number of approximated MODERATE 5
amounts of urine
Number of approximated LARGE 6
amounts of urine
Vital Signs
Temp Pulse Resp BP Pulse Ox
97.7 F 87 18 140/104 94
01/27/24 07:59 01/27/24 09:40 01/27/24 07:59 01/27/24 09:40 01/27/24 07:59
Lab Results
01/27/24 08:25
01/27/24 08:25
Calcium 8.7 mg/dl (8.4-10.2) 01/27/24 08:25
Phosphorus 3.8 mg/dl (2.5-4.5) 01/25/24 05:01
Magnesium 1.7 mg/dl (1.6-2.3) 01/27/24 08:25
Total Bilirubin 1.0 mg/dl (0.2-1.3) 01/27/24 08:25
AST 60 U/L (14-36) H 01/27/24 08:25
ALT 30 U/L (0-35) 01/27/24 08:25
Alkaline Phosphatase 261 U/L (38-126) H 01/27/24 08:25
Total Protein 5.7 g/dl (6.3-8.2) L 01/27/24 08:25
Albumin 2.7 g/dl (3.5-5.0) L 01/27/24 08:25
Physical Exam
-
Gen: NAD
Abd: soft, approp ttp, drains with turbid ss output, incision cdi, mid-wound opening with healthy wound base, stoma functioning
[2024-01-27] MEDS: AMPICILLIN 108 MG IV ×3 (11:23→22:57)
--- NOTE | 2024-01-27 11:43 | W.PN.PUL3 ---
Today's Communication / Plan
-
L-sided chest tube today with tPA and dornase --> patient is now amenable after first being hesitant this AM
She will need BID lytic instillation through chest tube x 3 days with daily CXR
Up OOB as tolerated
Anxiolytics as needed - would try hydroxyzine as it is less sedating than benzos
PT/OT � acute rehab s/p discharge
Pain control
Assessment
-
53-year-old female with past medical history of recurrent diverticulitis, pulmonary aspergillosis, hyperlipidemia, anxiety/depression, and GERD who presents with abdominal pain. She apparently was recently treated for diverticulitis in October 2023
with Augmentin at [facility] in [place] where she resides. She also reported that she was treated this month for ongoing fungal lung infection with Aspergillus and also given additional antibiotics but unknown what names of these
medications are. She developed a fever about 5 days ago and continues to be on Augmentin for last 3 days. She was visiting her mother in [place] prior to arrival when the pain in her left lower quadrant became severe so she came here to the
hospital for further care. She was afebrile in the ER to 98.6 �F, 79 pulse rate, breathing at 16 breaths/min, normotensive at 133/77 and saturating 100% on room air. Labs showed leukocytosis to 21.2, mild anemia to 11.5, mild hyponatremia to 134,
mild hyperkalemia to 5.6, and negative lipase of <10. CT A/P on admission showed severe sigmoid diverticulitis with large pericolonic abscess. She was given pain medications in the ER + Levaquin + IV fluids with NS x1L, and admitted to the
hospitalist service with general surgery consulted and antibiotics were started with Zosyn. She underwent IR CT-guided drainage on 12/24 with 170 cc of pale green purulent material seen - this later grew E. coli and group F Streptococcus. Patient
continues to be managed on the floor and was having issues with constipation. Repeat CT A/P performed on 01/02 showing decrease size in the abscess with pigtail drainage catheter seen in place, with massively distended right colon including the
cecum with stool distention and continued suspected distal descending colon/sigmoid diverticulitis. Given patient's worsening pain with distention and no flatus or BM in about 4 days, patient underwent exploratory laparotomy with splenic flexure
takedown, creation of end colostomy and omentectomy on 01/03/2024, and transferred to the ICU postoperatively. There was 150 cc of EBL and no immediate complications. Patient was stabilized and sent to the floor and pulmonary was reconsulted
01/12/2024 with ongoing hypoxemia.
Impression:
#Sigmoid diverticulitis s/p exploratory laparotomy with splenic flexure takedown, end colostomy creation and omentectomy � OR date: 01/12/2024
#Sigmoid diverticulitis c/b large pericolonic abscess s/p IR CT-guided drainage on 12/24 with purulent fluid growing E. coli + group F Streptococcus
#Constipation
#Leukocytosis
#Chronic anemia (unknown baseline but she has been between 8.5�11.5g/dL since admission)
#Lower lobe pulmonary bronchiectasis � likely due to her history of chronic pulmonary aspergillosis diagnosed in fall 2022
#History of pulmonary aspergillosis on voriconazole
#Left-sided pleural effusion status post thoracentesis on 01/20/2024 (exudative fluid with low glucose of 35) + repeat thoracentesis on 01/25 (also low glucose <30) suspicious for complicated effusion (either direct extension from abdomen vs
parapneumonic effusion)
Plan:
Respiratory status improved after thoracentesis 01/20/2024 --> she has re- accumulation of left-sided pleural fluid and is underwent repeat thoracentesis on 01/25 with low glucose and PMN predominant --> US during thora shows highly loculated
effusion--> she needs a chest tube for drainage with tPA + dornase BID x 3 days
Supplemental oxygen as needed-currently on 3 L/min mid flow-attempt to wean as tolerated
Aspiration precautions
Incentive spirometry encouraged
Acapella
Mucus clearing devices
DuoNebs TID + budesonide BID prn
Singulair continues
Note that the patient takes Breo as an outpatient
Radiographs summarized below
Chest x-ray with significant increase in what appears to be pleural fluid from 01/13/2024 through 01/19/2024
Dr[address] Paulson contacted interventional radiology for thoracentesis 01/20/24--1000 mL clear yellow exudative pleural fluid
Chest x-ray 01/20/2024-no pneumothorax, small to moderate residual left pleural effusion significantly decreased
Cell count: pH 7.37 - wbc 561 - glu 35 - tp 3.1 - 4123 -- exudative, likely parapneumonic; superimposed pseudoexudate from diuresis cannot be ruled out
Culture negative to date, path pending
She also has low albumin state which may be contributing to pleural fluid buildup
She is underwent thoracentesis on 01/25 showing low glucose and high PMNs --> concern for complicated effusion and given the highly loculated nature of the effusion, she needs a chest tube with lytic therapy
Upper right extremity ultrasound 01/20/2024-no evidence for DVT
Cultures reviewed
Continue antibiotics - pt was on Zosyn (started 12/24/2023) and then changed to Meropenem on 01/13, and as of 01/15 was on Zosyn --> now changed to ceftazidime + Ampicillin per ID
Infectious disease following-correspondence reviewed
Left upper quadrant collection-IR drainage 01/13/2024 --> grew Enterococcus raffinosus + E. coli
Prior LLQ acute DAKOTA drain had dislodged and patient underwent reinsertion by IR on 01/24--> fluid grew MDR-E. coli --> pt now on Ceftazidime + Ampicillin
Continue voriconazole for her history of pulmonary aspergillosis
Follow leukocytosis
Continue diuresis as tolerated
Monitor renal function, electrolytes, intake/output, lower extremity edema and weight
Replace electrolytes as needed
Cardiology following-correspondence reviewed-continue with IV diuresis
Surgery following-correspondence reviewed --> no additional procedures needed as of 01/26,and she will be discharged with her abdominal drains that IR placed
Low residual diet per surgery
CT abdomen 01/12/2024-fluid collection left upper quadrant contains anterior air-fluid level compatible with abscess increased compared to 01/08/2024, irregular fluid collection within left pelvis and superimposed infection of this collection cannot be
excluded, pigtail catheter in posterior pelvis no evidence of collection in this area, bilateral pleural effusions left greater than right most likely atelectasis
She is on a low residue diet and seems to be tolerating it well
Intermittent CT abdomen to follow-up on collections --> less CT A/P on 01/24/2024 showing anterior left midline/LLQ small collection with trace mental stable fluid adjacent to the spleen, and free air within the peritoneum (expected post-procedure)
Neurology following due to tardive dyskinesia-correspondence reviewed
Restless legs still an issue-improved
Rotigotine patch now off
Continue amantadine and Ingrezza
DVT prophylaxis-on Lovenox
GI prophylaxis-on Protonix (she takes pantoprazole at home)
Nutrition per surgery
PT/OT --> rec'd acute rehab upon discharge
Pulmonary service will continue to follow along.
Outpatient pulmonary follow-up -she has a director of career resources as well as an ID doctor in [place], [place], and I advised her to follow-up with those specialists once she is discharged.
Total time spent today was 35 minutes for this encounter. Time includes reviewing laboratory test/imaging results, reviewing pertinent medical records, obtaining and reviewing medical history, performing an appropriate exam, ordering medications,
tests and procedures. Time also includes documentation of this encounter, coordinating patient care and communicating with other healthcare professionals. Total time does not include separately billed tests performed on this date of service.
Data:
Chest x-ray 01/13/2024-moderate left pleural effusion which is stable and left lower lobe infiltrate concerning for pneumonia also stable
Chest ultrasound 01/11/2024-small to moderate pleural effusion, thoracentesis canceled-not enough fluid for evacuation
Chest x-ray 01/19/2024-large left pleural effusion
Chest x-ray 01/20/2024-large left pleural effusion not significantly changed, borderline pulmonary edema with cephalization
Chest x-ray 01/26/2024-Loculated moderate left pleural effusion. Mildly improved. No pneumothorax.
Echo 01/19/2024: EF 50%, stage I DD, mild TR, PAP 35 to 40 mmHg, mild ND, pleural effusion present, trivial pericardial effusion. IVC is moderately dilated
Subjective Data
-
Date of Service:
Date of Service: January 27, 2024
Chief Complaint: Pulmonary Follow Up and Dyspnea Follow Up
Subjective:
Pt seen and evaluated this AM. She is hesistant for the chest tube - I reviewed her CXR images with her for this hospitalization - family members at bedside. I answered all her questions - she is now amenable for the chest tube procedure. She
says she actually feels better today, is breathing well, no issues overnight.
Review of Systems
General: Other (negative unless mentioned above)
Objective Data
Data Reviewed
Vital Signs / I&O / Oxygen:
Vital Signs
Temp Pulse Resp BP Pulse Ox
97.8 F 85 18 150/88 94
01/27/24 11:29 01/27/24 11:29 01/27/24 11:29 01/27/24 11:29 01/27/24 11:29
Intake and Output
01/26/24 01/27/24 01/28/24
06:59 06:59 06:59
Intake Total 1900 / 1900 730 / 730
Output Total 1745 / 1745 448 / 448
Balance 155 / 155 282 / 282
SaO2 94
Nasal Cannula flow liters per 3
minute
Physical Exam
General: Respiratory Distress (n), Comfortable, Chills (negative) and Other (deconditioned appearance)
HEENT: Normocephalic and Anicteric
Cardiovascular: S1-S2 and Peripheral Edema (Trace edema in lower extremities bilaterally)
Respiratory: Wheeze (negative), Crackles (bases bilaterally), Rhonchi (negative), Non-Labored Respirations, Accessory Resp Muscle Use (n), Stridor (n) and Other (Diminished BS at left base to left middle field + dullness to percussion on L in base
to left middle lung field)
GI: Soft, Distended and Tender
Neurology: AO x 3 and Tremors (n)
Skin: Warm, Dry, Cyanosis (n) and Jaundice (n)
Labs/Micro/Reports
Lab Data
01/27/24 08:25
01/27/24 08:25
Microbiology
01/25/24 15:56 Abscess Wound Culture - Preliminary
Escherichia coli
01/25/24 15:56 Abscess Gram Stain - Preliminary
01/26/24 16:12 Pleural Fluid Gram Stain - Preliminary
--- NOTE | 2024-01-27 11:55 | W.PN.UPDATE ---
Update Note
Progress Note Update
patient seen chart reviewed. discussed with nursing. sister in law and brother visiting. ms molina reports she is finally feeling like herself although acknowledges ongoing complications. she is unhappy with the thought of a chest tube. her
movement disorder is continuing to improve with ingrezza. sent text to dr workman re how long to continue symmetrel. i have located some discount cards for symmetrel when she is discharged. i am trying to get more samples ...if i cannot will have
to ask family member to take a discount card to pharmacy to procure ingrezza which is not formulary here. (i never heard back from pharmacy as to serra through her insurance i suspect it is high). patient is hoping for dc to [place] so she can gain
back some physical strength. she tells me she was faithful with going to the gym before she got sick.
[2024-01-27] MEDS: DUONEB INH (13:28)
[2024-01-27] MEDS: ATARAX 12.5 MG PO (13:31)
--- NOTE | 2024-01-27 14:37 | CM ---
Reviewed the chart notes. Patient scheduled for L-sided chest tube placement today. CM continues to be available to patient/family and is monitoring medical plan for needs at discharge.
Plan: PT recommendation is Acute Rehab. Precert will be required.
--- NOTE | 2024-01-27 14:55 | WOUNDNOTE ---
WOC RN note: Patient going to IR for chest tube. Colostomy appliance intact without leakage. Stool soft brown. Colostomy pouch emptied and reeducated patient on pouch emptying. Sacral skin intact without redness. She has a Centrella Max air bed and
an air chair cushion. Patient ambulated to stretcher with walker and PCT supervision. Will plan to change ostomy appliance tomorrow.
--- NOTE | 2024-01-27 16:14 | W.PN.CARDCBS ---
Today's Communication / Plan
-
Stable cardiac status, we will sign off, please recall as needed
Impression / Plan
-
PCP: Iva Benton
Attorney: None prior to admission, initial consultation Dr. Carranza
Impression:
Presented 12/24/2023 with acute abdominal pain
Sigmoid diverticulitis with diverticular abscess
s/p IR drainage grew E. coli and group F Streptococcus (12/25/23)
s/p exploratory lap, colostomy (01/03/24)
s/p IR drainage perisplenic fluid (01/13/24)
Leukocytosis
Acute on chronic anemia
4 units PRBCs so far this admission
Superficial thrombosis of left basilic vein (no DVT)
Abnormal EKG
Acute hypoxic respiratory insufficiency
Left-sided pleural effusion
s/p Lt thoracentesis for 1 L 01/20/24
Acute HFpEF, proBNP 12,800
Hx Pulmonary aspergillosis voriconazole as outpatient
Bronchiectasis
Recurrent diverticulitis
Anxiety/depression
Hx steroid-induced psychosis
GERD
Asthma
Hyperlipidemia
Obesity
Spontaneous right carotid dissection discovered after ongoing migraine headaches in ~2021 Treated conservatively with DAPT
Restless legs syndrome
Tardive dyskinesia
Echo 01/19/2024: EF 50%, stage I DD, mild TR, PAP 35 to 40 mmHg, mild IA, pleural effusion present, trivial pericardial effusion. IVC is moderately dilated
Plan:
-Breathing is more comfortable today, but still requiring supplemental O2
-Transitioned to 40 mg p.o. Lasix twice daily 01/26/2024. Creatinine stable. Dry weight unknown, as appears lower than admission weight. She was not taking diuretic prior to admission
-Continue Tubigrip compression to bilateral lower extremity
-In sinus rhythm with occasional ventricular bigeminy, 1 6 beat run of NSVT on 01/25
-No further runs of NSVT based on my review of telemetry
-Structurally normal heart by TTE earlier this admission
-Replete electrolytes, K>4, Mg>2
-Possible outpatient ischemic evaluation when she recovers from acute illness due to anterolateral T wave changes on ECG 01/19/24
-Stable cardiac status, we will sign off, please recall as needed
HPI: Patient is a 53-year-old female with past medical history significant for recurrent diverticulitis, pulmonary aspergillosis, hyperlipidemia, anxiety/depression, GERD and chronic anemia who presented to emergency department 12/24/2023 with acute
abdominal pain and fever. She was noted to have sigmoid diverticulitis with diverticular abscess and underwent IR drainage 12/25/2023. Due to constipation with distention and absent bowel sounds she underwent exploratory laparotomy with splenic
flexure takedown, creation of end colostomy and omentectomy on 01/03/2024. She underwent IR drainage of perisplenic fluid on 01/13/2024. Patient being followed closely by ID on antibiotics. Patient was n.p.o. for extended period of time and recently
advanced to low resolution diet. Patient received considerable volume throughout her hospitalization and has had 27 pound weight gain. Patient now with worsening shortness of breath, hypoxemia. Chest x-ray from 01/20/2024 shows large left pleural
fluid collection with indwelling left-sided chest tube and borderline pulmonary edema with cephalization of pulmonary vasculature. proBNP performed on 01/20/2024 noted to be elevated at 12,800. EKG performed on 01/19/2024 showed sinus rhythm with
new T wave abnormality in anterolateral leads which was not present on admission. She underwent an echocardiogram which demonstrated mildly reduced ejection fraction of 50% with elevated pulmonary pressures. Cardiology being asked to see patient
for concerns of acute heart failure and abnormal EKG.
Progress Note - Attorney
Subjective
Date of Service: January 27, 2024
No acute overnight events. Resting comfortably out of bed to chair. Tells me that she feels much better today than over the prior few days.
Objective
Labs:
01/27/24 08:25
01/27/24 08:25
Labs
Hgb 8.8 g/dL (12.0-16.0) L 01/27/24 08:25
Hct 26.2 % (37.0-47.0) L 01/27/24 08:25
Plt Count 471 10^3/uL (130-400) H 01/27/24 08:25
PT 15.3 Sec (11.4-14.6) H 01/06/24 15:22
INR 1.21 01/06/24 15:22
APTT 35.6 Sec (23.4-35.0) H 01/06/24 15:22
Sodium 131 mmol/L (135-145) L 01/27/24 08:25
Potassium 3.6 mmol/L (3.5-5.1) 01/27/24 08:25
BUN 6 mg/dl (7-17) L 01/27/24 08:25
Creatinine 0.5 mg/dL (0.6-1.0) L 01/27/24 08:25
Glucose 93 mg/dl (70-99) 01/27/24 08:25
Vital Signs and I&O:
Vital Signs
Temp Pulse Resp BP Pulse Ox
97.9 F 85 20 127/73 98
01/27/24 14:54 01/27/24 14:54 01/27/24 14:54 01/27/24 14:54 01/27/24 14:54
Vital Signs
Temp Pulse Resp BP Pulse Ox
97.9 F 85 20 127/73 98
01/27/24 14:54 01/27/24 14:54 01/27/24 14:54 01/27/24 14:54 01/27/24 14:54
Intake & Output
01/25/24 01/26/24 01/27/24 01/28/24
06:59 06:59 06:59 06:59
Intake Total 1450 / 1450 1900 / 1900 730 / 730
Output Total 3907 / 3907 1745 / 1745 448 / 448
Balance -2457 / -2457 155 / 155 282 / 282
Physical Exam
Physical Exam
Gen: NAD, AAOx3
HEENT: NC/AT, sclera anicteric
Neck: No JVD
CV: RRR, NL s1/s2
Lungs: No increased work of breathing on supplemental O2 via nasal cannula
Abd: S/ND
Ext: No LE edema with compression stockings in place
Skin: Warm, dry
Neuro: Non-focal
[2024-01-27] MEDS: LOVENOX 40 MG SC (17:43)
[2024-01-27] MEDS: SINGULAIR 10 MG PO (17:49)
[2024-01-27] MEDS: ATIVAN 0.5 MG IV (18:28)
[2024-01-27] MEDS: NSS (PRESERVATIVE FREE) 0.25 ML IV (18:29)
[2024-01-27] MEDS: STERILE WATER FOR INJECTION 10 ML IV (19:53)
[2024-01-27] MEDS: ROXICODONE 5 MG PO (19:55)
[2024-01-27] MEDS: DILAUDID 0.5 MG IV (21:15)
[2024-01-27] MEDS: MELATONIN 5 MG PO (21:23)
[2024-01-27] MEDS: FLEXERIL 5 MG PO (23:02)
[2024-01-28] VITALS (7 sets, daily range): BP systolic 118–147; BP diastolic 65–88; PULSE 89; O2SAT 95; BMI 26.2; BMI 26.3
[2024-01-28] MEDS: STERILE WATER FOR INJECTION IV (02:03)
[2024-01-28] MEDS: STERILE WATER FOR INJECTION 10 ML IV ×3 (02:07→17:35)
[2024-01-28] MEDS: FORTAZ 2000 MG IV ×3 (02:07→17:35)
[2024-01-28] MEDS: DILAUDID 0.5 MG IV (03:40)
[2024-01-28] MEDS: AMPICILLIN 108 MG IV ×4 (03:40→21:08)
[2024-01-28 06:59] LABS: % Basophils 0.7 % (0-2); % Immature Granulocytes 0.6 % (0-0.5); % Lymphocytes 11.8 % (20.5-51.1); % Neutrophils 74.9 % (42.2-75.2); Absolute Basophils 0.1 10^3/uL (0-0.2); Absolute Eosinophils 0.1 10^3/uL (0-0.7); Absolute Immature Granulocytes 0.1 10^3/uL (0-0.05); Absolute Lymphocytes 1.6 10^3/uL (1.2-3.4); Absolute Monocytes 1.5 10^3/uL (0.1-0.6); Absolute Neutrophils 10.3 10^3/uL (1.4-6.5); Hematocrit 25.9 % (37.0-47.0); Hemoglobin 8.8 g/dL (12.0-16.0); Mean Corpuscular Hgb 29.5 pg (27.0-31.0); Mean Corpuscular Volume 86.9 fL (81.0-99.0); Mean Platelet Volume 8.9 fL (7.4-10.4); Nucleated Red Blood Cells % 0 %; Platelet Count 489 10^3/uL (130-400); Red Blood Cell Count 2.98 10^6/uL (4.20-5.40); Red Cell Dist. Width 18.1 % (11.5-14.5); White Blood Cell Count 13.7 10^3/uL (4.8-10.8)
[2024-01-28 07:33] LABS: Blood Urea Nitrogen 5 mg/dl (7-17); Calcium 8.2 mg/dl (8.4-10.2); Carbon Dioxide 34 mmol/L (22-30); Chloride 89 mmol/L (98-107); Estimated Creatinine Clearance 109 ml/min; Glucose 88 mg/dl (70-99); Sodium 131 mmol/L (135-145); eGFR > 60.00
[2024-01-28] MEDS: DUONEB 3 ML INH ×3 (07:33→20:06)
[2024-01-28] MEDS: SYMMETREL 100 MG PO ×2 (07:49→21:00)
[2024-01-28] MEDS: FOLVITE 1 MG PO (07:49)
[2024-01-28] MEDS: KCL 40 MEQ PO (07:49)
[2024-01-28] MEDS: VITAMIN D3 (cholecalciferol) 25 MCG PO (07:49)
[2024-01-28] MEDS: LASIX 40 MG PO ×2 (07:49→17:34)
[2024-01-28] MEDS: PROZAC 20 MG PO (07:50)
[2024-01-28] MEDS: NSS (PRESERVATIVE FREE) 10 ML IV (07:50)
[2024-01-28] MEDS: PROTONIX IV 40 MG IV (07:50)
[2024-01-28] MEDS: NON-FORMULARY ITEM 1 UNIT PO (07:50)
[2024-01-28] MEDS: TYLENOL 1000 MG PO ×3 (08:24→22:28)
--- NOTE | 2024-01-28 08:42 | W.PN.HOSP.TC ---
Today's Communication/Plan
-
Lysis of CT and chest tube care. Continue IV antibiotics. PT OT
Assessment / Plan
Assessment / Plan
Physical exam:
General: Acute and chronically ill
HEENT: Normocephalic, Atraumatic and Moist Mucous Membranes
Respiratory: Clear to Auscultation; Negative Wheezes, Rales or Rhonchi. CT in place in the left side
Cardiac: Regular Rhythm and S1/S2
GI: Soft, postop findings, drain with active drainage, non tender and Nondistended
Musculoskeletal: No Clubbing, No Cyanosis and No Edema
Neuro: Awake, Alert and Oriented
Psych: Calm
A/P:
Sigmoid diverticulitis with abscess:
-h/o diverticulosis/diverticulitis
-s/p abscess drainage 12/25/23 by IR. E. coli resistant to Zosyn from 01/24. E. coli pansensitive and Enterococcus Raffinosus on 01/12 wound cultures. Pleural fluid cultures pending.
-with findings of massively distended right colon including the cecum on CT scan of the abdomen pelvis on January 03, 2024 the patient was taken to the OR for Exploratory laparotomy, takedown splenic flexure, creation end colostomy, omentectomy
-ID changed antibiotics to IV ampicillin and IV Fortaz based on sensitivities on 01/26.
-Status post abdominal drains on 01/12 and 01/24.
-Follow-up repeat blood cultures for recurrent fevers since 01/12 but so far no growth but initial wound cultures growing E. coli and Enterococcus Raffinosus
- Rpt CT A/P from 01/23 noted -cw LUQ drain per surgery
-Repeated labs today
-Discussed with surgery in person on 01/26
-Low residue diet per surgery
Left Pleural effusion, complicated loculated effusion:
Status post chest tube on 01/26
Plan to do tPA plus dornase for 3 days.
Pleural fluid cultures pending.
Prior to today:
Left pleural effusion s/p thoracentesis 01/25 (exudative)
Acute hypoxic respiratory insufficiency:
Now off of high flow oxygen for increased PEEP--> now down to 2-3 L of oxygen. Wean as tolerated.
Continue to titrate oxygen as able.
Pulmonary following-on oxygen and chest tube in place
Cardiology signed off-on oral diuresis
Continue incentive spirometry
Continue Acapella
Continue bronchodilators
Aspiration precautions
Leukocytosis:
WBC 13.7 today
Afebrile
Continue current antibiotics per ID
Continue to trend.
Abnormal EKG-patient now has poor R waves in the anterior leads and also T wave inversion. Echo also showed low normal EF of 50%. Appreciate cardiology input.
Dyskinetic movements/Restless Legs:
-Psychiatry and neurology have decided to start her on Ingrezza. Seems to be working well. Pt feeling improved from her movements standpoint.
-Also started on amantadine.
-Stopped Requip and Neupro patch
-Started melatonin
-Remains on trazodone 100 mg as needed, Flexeril as needed, Dilaudid as needed; psych discussed with outpatient psychiatrist who felt she did not have manic episode but patient decided to continue Depakote. Depakote now discontinued .
-Seroquel stopped as Vfend increases serum concentration of Seroquel.
-Avoid antidopaminergic agents as much as possible
Thrombosis left upper extremity:
Superficial thrombosis in the left basilic vein (no DVT)
On Lovenox 40 mg daily for prevention DVT and will be enough for above plus local care.
PICC dced 01/19
Acute blood loss anemia:
-Aim to keep H&H more than 7. Follow blood work. Hemoglobin 8.8 today
-s/p 4U pRBCs
Hyponatremia -sodium 131. Pt was volume overloaded .Improving. Continue to follow
Other problems:
h/o pulmonary Aspergillus: since Apr 2023. cont Vfend.
Hyperkalemia, resolved
HLD
GERD: cont PPI
Anxiety/depression: Continue Trazodone PRN/Prozac/Depakote. Seroquel stopped by psych.
FULL/Lovenox
CW PT/OT eval/tx
Time spent 50 minutes.
Anticipated Discharge: > 48 hours
Subjective/Interval History
-
Date of Service: January 28, 2024
Patient has chest tube in place since yesterday. Mild discomfort at CT site. No worsening chest pain or shortness of breath or abdominal pain. She is tolerating her diet today. Afebrile
Objective Data
-
Labs:
Laboratory Results
01/28/24
06:17
WBC 13.7 H
Hgb 8.8 L
Hct 25.9 L
Plt Count 489 H
Sodium 131 L
Potassium 4.0
Chloride 89 L
Carbon Dioxide 34 H
BUN 5 L
Creatinine 0.4 L
Glucose 88
Calcium 8.2 L
Vital Signs:
Vital Signs
Temp Pulse Resp BP Pulse Ox
98.2 F 79 18 124/68 94
01/28/24 07:45 01/28/24 07:49 01/28/24 07:45 01/28/24 07:49 01/28/24 07:45
I&O
01/27/24 01/28/24 01/29/24
06:59 06:59 06:59
Intake Total 730 / 730 841 / 841
Output Total 448 / 448 655 / 655
Balance 282 / 282 186 / 186
--- NOTE | 2024-01-28 08:52 | WOUNDNOTE ---
WO RN note: Patient s/p CT insertion yesterday. Stoma pink and budded and functioning for soft formed stool. Peristomal skin intact. There is a small deep dermal ulcer just under the distal wafter edge suspect was an old DAKOTA tube site, wound pink
with yellow fibrin. Silicone border foam applied after cleansing with saline under distal wafer border. Instructed patient pouch emptying and changing appliance using [place]ot wafer #[id number], Kelly seal and Juliette pouch #[id number]. Mucocutaneous
separation at 9 'clock almost healed. Skin on heels intact. Patient is on a iCeutica max air and has an air chair cushion. Patient stated she has a good appetite. Plan is eventual SNF rehab vs [facility] transfer. Ostomy supplies in room. Patient
interested in closed end pouch if appropriate. Will add Minot closed end pouch order # to discharge instructions.
--- NOTE | 2024-01-28 10:30 | W.PN.PUL3 ---
Today's Communication / Plan
-
Continue lytic instillation through chest tube - for sessions #2 and #3 today of tPA and dornase
Daily CXR
Up OOB as tolerated
Anxiolytics as needed - would try hydroxyzine as it is less sedating than benzos
PT/OT � acute rehab s/p discharge
Pain control
Assessment
-
53-year-old female with past medical history of recurrent diverticulitis, pulmonary aspergillosis, hyperlipidemia, anxiety/depression, and GERD who presents with abdominal pain. She apparently was recently treated for diverticulitis in October 2023
with Augmentin at [facility] in [place] where she resides. She also reported that she was treated this month for ongoing fungal lung infection with Aspergillus and also given additional antibiotics but unknown what names of these
medications are. She developed a fever about 5 days ago and continues to be on Augmentin for last 3 days. She was visiting her mother in [place] prior to arrival when the pain in her left lower quadrant became severe so she came here to the ""hospital for further care. She was afebrile in the ER to 98.6 �F, 79 pulse rate, breathing at 16 breaths/min, normotensive at 133/77 and saturating 100% on room air. Labs showed leukocytosis to 21.2, mild anemia to 11.5, mild hyponatremia to 134,
mild hyperkalemia to 5.6, and negative lipase of <10. CT A/P on admission showed severe sigmoid diverticulitis with large pericolonic abscess. She was given pain medications in the ER + Levaquin + IV fluids with NS x1L, and admitted to the
hospitalist service with general surgery consulted and antibiotics were started with Zosyn. She underwent IR CT-guided drainage on 12/24 with 170 cc of pale green purulent material seen - this later grew E. coli and group F Streptococcus. Patient
continues to be managed on the floor and was having issues with constipation. Repeat CT A/P performed on 01/02 showing decrease size in the abscess with pigtail drainage catheter seen in place, with massively distended right colon including the
cecum with stool distention and continued suspected distal descending colon/sigmoid diverticulitis. Given patient's worsening pain with distention and no flatus or BM in about 4 days, patient underwent exploratory laparotomy with splenic flexure
takedown, creation of end colostomy and omentectomy on 01/03/2024, and transferred to the ICU postoperatively. There was 150 cc of EBL and no immediate complications. Patient was stabilized and sent to the floor and pulmonary was reconsulted
01/12/2024 with ongoing hypoxemia.
Impression:
#Sigmoid diverticulitis s/p exploratory laparotomy with splenic flexure takedown, end colostomy creation and omentectomy � OR date: 01/12/2024
#Sigmoid diverticulitis c/b large pericolonic abscess s/p IR CT-guided drainage on 12/24 with purulent fluid growing E. coli + group F Streptococcus
#Constipation
#Leukocytosis
#Chronic anemia (unknown baseline but she has been between 8.5�11.5g/dL since admission)
#Lower lobe pulmonary bronchiectasis � likely due to her history of chronic pulmonary aspergillosis diagnosed in fall 2022
#History of pulmonary aspergillosis on voriconazole
#Left-sided pleural effusion status post thoracentesis on 01/20/2024 (exudative fluid with low glucose of 35) + repeat thoracentesis on 01/25 (also low glucose <30) suspicious for complicated effusion (either direct extension from abdomen vs
parapneumonic effusion)
Plan:
Respiratory status improved after thoracentesis 01/20/2024 --> she has re- accumulation of left-sided pleural fluid and underwent repeat thoracentesis on 01/25 with low glucose and PMN predominant --> US during thora shows highly loculated effusion-->
chest tube placed on 01/27/2024 via IR with tPA + dornase BID x 3 days --> for this AM; then tonight
Supplemental oxygen as needed-currently on 3 L/min mid flow-attempt to wean as tolerated
Aspiration precautions
Incentive spirometry encouraged
Acapella
Mucus clearing devices
DuoNebs TID + budesonide BID prn
Singulair continues
Note that the patient takes Breo as an outpatient
Radiographs summarized below
Chest x-ray with significant increase in pleural fluid from 01/13/2024 through 01/19/[address]24
[address] Paulson contacted interventional radiology for thoracentesis 01/20/24--1000 mL clear yellow exudative pleural fluid
Chest x-ray 01/20/2024-no pneumothorax, small to moderate residual left pleural effusion significantly decreased
Cell count: pH 7.37 - wbc 561 - glu 35 - tp 3.1 - 4123 -- exudative, likely parapneumonic; superimposed pseudoexudate from diuresis cannot be ruled out
Culture negative to date, path negative for malignancy
She also has low albumin state which may be contributing to pleural fluid buildup
She underwent thoracentesis on 01/25 showing low glucose and high PMNs --> concern for complicated effusion and given the highly loculated nature of the effusion --> chest tube placed 01/26 by IR --> give tPA/dornase BID x 3 days
Upper right extremity ultrasound 01/20/2024-no evidence for DVT
Cultures reviewed
Continue antibiotics - pt was on Zosyn (started 12/24/2023) and then changed to Meropenem on 01/13, and as of 01/15 was on Zosyn --> now changed to ceftazidime + Ampicillin per ID
Infectious disease following-correspondence reviewed
Left upper quadrant collection-IR drainage 01/13/2024 --> grew Enterococcus raffinosus + E. coli
Prior LLQ acute DAKOTA drain had dislodged and patient underwent reinsertion by IR on 01/24--> fluid grew MDR-E. coli --> pt now on Ceftazidime + Ampicillin
Continue voriconazole for her history of pulmonary aspergillosis
Follow leukocytosis
Continue diuresis as tolerated (changed from IV to PO lasix on 01/25)
Monitor renal function, electrolytes, intake/output, lower extremity edema and weight
Replace electrolytes as needed
Cardiology following-correspondence reviewed
Surgery following-correspondence reviewed --> no additional procedures needed as of 01/26,and she will be discharged with her abdominal drains that IR placed
Low residual diet per surgery
CT abdomen 01/12/2024-fluid collection left upper quadrant contains anterior air-fluid level compatible with abscess increased compared to 01/08/2024, irregular fluid collection within left pelvis and superimposed infection of this collection cannot be
excluded, pigtail catheter in posterior pelvis no evidence of collection in this area, bilateral pleural effusions left greater than right most likely atelectasis
She is on a low residue diet and seems to be tolerating it well
Intermittent CT abdomen to follow-up on collections --> less CT A/P on 01/24/2024 showing anterior left midline/LLQ small collection with trace mental stable fluid adjacent to the spleen, and free air within the peritoneum (expected post-procedure)
Neurology following due to tardive dyskinesia-correspondence reviewed
Restless legs still an issue-improved
Rotigotine patch now off
Continue amantadine and Ingrezza
DVT prophylaxis-on Lovenox
GI prophylaxis-on Protonix (she takes pantoprazole at home)
Nutrition per surgery
PT/OT --> rec'd acute rehab upon discharge
Pulmonary service will continue to follow along.
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
Total time spent today was 35 minutes for this encounter. Time includes reviewing laboratory test/imaging results, reviewing pertinent medical records, obtaining and reviewing medical history, performing an appropriate exam, ordering medications,
tests and procedures. Time also includes documentation of this encounter, coordinating patient care and communicating with other healthcare professionals. Total time does not include separately billed tests performed on this date of service.
Data:
Chest x-ray 01/13/2024-moderate left pleural effusion which is stable and left lower lobe infiltrate concerning for pneumonia also stable
Chest ultrasound 01/11/2024-small to moderate pleural effusion, thoracentesis canceled-not enough fluid for evacuation
Chest x-ray 01/19/2024-large left pleural effusion
Chest x-ray 01/20/2024-large left pleural effusion not significantly changed, borderline pulmonary edema with cephalization
Chest x-ray 01/26/2024-Loculated moderate left pleural effusion. Mildly improved. No pneumothorax.
Chest x-ray 01/27/2024-Residual small volume left pleural fluid and left basilar atelectasis, improved as compared with prior.
Echo 01/19/2024: EF 50%, stage I DD, mild TR, PAP 35 to 40 mmHg, mild FL, pleural effusion present, trivial pericardial effusion. IVC is moderately dilated
Subjective Data
-
Date of Service:
Date of Service: January 28, 2024
Chief Complaint: Pulmonary Follow Up and Dyspnea Follow Up
Subjective:
Patient seen and evaluated today. Underwent left-sided chest tube yesterday. About 600 cc output since yesterday. Approximately another 400 cc since this morning. Patient feels well. CXR slightly improved on the left hemithorax in terms of his
aeration. She remains on mid flow nasal cannula at 2 L/min. SpO2 95%. She denies chest pain, headache, fevers or chills.
Review of Systems
General: Other (Negative unless mentioned above)
Objective Data
Data Reviewed
Vital Signs / I&O / Oxygen:
Vital Signs
Temp Pulse Resp BP Pulse Ox
98.5 F 80 18 138/74 95
01/28/24 11:20 01/28/24 11:20 01/28/24 11:20 01/28/24 11:20 01/28/24 11:20
Intake and Output
01/27/24 01/28/24 01/29/24
06:59 06:59 06:59
Intake Total 730 / 730 841 / 841
Output Total 448 / 448 655 / 655
Balance 282 / 282 186 / 186
SaO2 95
Nasal Cannula flow liters per 2
minute
Physical Exam
General: Respiratory Distress (n), Comfortable, Chills (negative) and Other (deconditioned appearance)
HEENT: Normocephalic and Anicteric
Cardiovascular: S1-S2 and Peripheral Edema (Trace edema in lower extremities bilaterally)
Respiratory: Wheeze (negative), Crackles (bases bilaterally), Rhonchi (negative), Non-Labored Respirations, Accessory Resp Muscle Use (n), Stridor (n), Chest Tube (Left hemithorax (placed via IR on 01/27/2024)) and Other (Diminished BS at left base
to left middle field + dullness to percussion on L in base to left middle lung field)
GI: Soft, Distended and Tender
Neurology: AO x 3 and Tremors (occasional in her r-hand)
Skin: Warm, Dry, Cyanosis (n) and Jaundice (n)
Labs/Micro/Reports
Lab Data
01/28/24 06:17
01/28/24 06:17
Microbiology
01/26/24 16:12 Pleural Fluid Body Fluid Culture - Preliminary
No Growth After 48 Hours
01/26/24 16:12 Pleural Fluid Gram Stain - Preliminary
01/25/24 15:56 Abscess Wound Culture - Preliminary
Escherichia coli
Enterococcus species
01/25/24 15:56 Abscess Gram Stain - Preliminary
[2024-01-28] MEDS: VFEND 200 MG PO ×2 (11:00→21:06)
--- NOTE | 2024-01-28 11:00 | W.SUR.POST ---
Surgical Immediate Post Op
Note
Chest tube Lytic Instillation Procedure:
Procedure date of service: 01/28/2024
Medications instilled: Alteplase 10 mg + dornase 5 mg
Reason for procedure: Left-sided loculated pleural effusion
Complications: No immediate complications
Procedure details: Sterile technique was employed including washing hands, sterile gloves, gown and mask. Three-way stopcock was attached to patient's pre-existing chest tube after her existing chest tube was clamped to avoid any air entering into
her pleural space. Alcohol swabs were employed and nursing staff assisted me to instilling lytics. 10 cc and a 0.9% was flushed after each medication was instilled. Three-way stopcock was wiped down with alcohol swab prior to any medication being
attached to it to promote sterile technique. Patient tolerated installations without any immediate complications. Advised RN to clamp chest tube x 2 hours, then unclamp and placed back onto negative suction at -30 cmH2O.
--- NOTE | 2024-01-28 11:10 | W.PN.UPDATE ---
Update Note
Progress Note Update
patient seen hcart reviewed. with nursing. the patient had a difficult time yesterday. she was upset at needing a chest tube and did not initially want to agree but was persuaded it was for the best. we reviewed. the long arc of her illness which
actually began in 2021 and early on need for steroids caused severe psychosis of which there is no sign now. she describes what i think was severe akathisia from antipsychotics followed by what seems to be td. needless to say this has very much
stressed her. her son and she are estranged as he is struggling w his emotions given her illness. as well her ex h does not help matters according to ms molina. she is facing leaving her home and establishing a new place but ambivalent about
leaving [place] where son lives and coming back to [place] where she has more support. we discussed use of ativan prn. have ordered o.5 mg iv for now. will continue to follow and offer support.
[2024-01-28] MEDS: ROXICODONE 5 MG PO ×2 (13:47→17:50)
--- NOTE | 2024-01-28 14:22 | W.PN.GS2 ---
Today's Communication / Plan
-
`
Assessment / Plan
-
Assessment: 53 yo female with recent aspergillus pneumonia on home O2 and on recent steroids presenting with complicated diverticulitis with large pelvic abscess, failed initial nonoperative management now status post Garcia's procedure.
12/25/2023 s/p IR drainage of abscess cx with 2 strep species and 2 species of e.coli noted
01/03/2024 s/p exploratory laparotomy with takedown of splenic flexure, creation end colostomy with omentectomy
01/13/2024 s/p IR drain post op perisplenic fluid collection 01/14/24 cx with enterococcus/e. coli.
Off TPN since 01/12, on LRD
01/24/2024 Left lower quadrant DAKOTA that was previously draining pus dislodged. CT repeated with recurrent pleural effusion and fluid collection to the left mid/lower abd. No extravasation of contrast from the rectal stump.
01/27/[address] chest tube [address] with TPA tx
AFVSS
Leukocytosis stable
abd JPs unchanged - not much outputs but purulence noted
heaven removed
Plan:
Continue local wound care
low residue diet and encourage PO intake/supplements; okay for family to bring in food/supplements from home.
Pain control: Tylenol, Oxycodone, IV Dilaudid PRN
Continue abx per ID recs
Ostomy teaching
Continue drains to bulb suction, Flush IR drain daily.
Daily dressing changes to midline incision, dry gauze packing to open area in middle of wound
DVT: SCDs as tolerated. Lovenox sq
Subjective Data
-
Date of Service: January 28, 2024
pt seen and examined
just ate some lunch
no significant abdominal pain
ostomy functioning
some left sided scapular/chest pains
Objective Data
-
Intake and Output
01/27/24 01/28/24 01/29/24
06:59 06:59 06:59
Intake Total 730 / 730 841 / 841
Output Total 448 / 448 655 / 655
Balance 282 / 282 186 / 186
Intake:
Oral fluids 550 / 550 480 / 480
IV fluids (Total) 40 / 40 125 / 125
NSS 125 / 125
IV piggybacks 100 / 100 216 / 216
Amount instilled into Drain ( 40
Total)
Left Lower Abdomen B
Left Upper Abdomen Placed in IR
Output:
CT Output (Total) 600 / 600
Left Lateral A 600 / 600
Drain Output (Total) 48 / 48 55 / 55
Left Lower Abdomen B 38 / 38 25 / 25
Left Upper Abdomen Placed in IR 30 30
Urine, Voided 400 / 400
Other:
Number of approximated SMALL 1
amounts of urine
Number of approximated MODERATE 5
amounts of urine
Number of approximated LARGE 6
amounts of urine
Vital Signs
Temp Pulse Resp BP Pulse Ox
98.5 F 87 18 138/74 95
01/28/24 11:20 01/28/24 13:11 01/28/24 13:11 01/28/24 11:20 01/28/24 13:11
Lab Results
01/28/24 06:17
01/28/24 06:17
Calcium 8.2 mg/dl (8.4-10.2) L 01/28/24 06:17
Phosphorus 3.8 mg/dl (2.5-4.5) 01/25/24 05:01
Magnesium 1.7 mg/dl (1.6-2.3) 01/27/24 08:25
Total Bilirubin 1.0 mg/dl (0.2-1.3) 01/27/24 08:25
AST 60 U/L (14-36) H 01/27/24 08:25
ALT 30 U/L (0-35) 01/27/24 08:25
Alkaline Phosphatase 261 U/L (38-126) H 01/27/24 08:25
Total Protein 5.7 g/dl (6.3-8.2) L 01/27/24 08:25
Albumin 2.7 g/dl (3.5-5.0) L 01/27/24 08:25
Physical Exam
-
NAD AAOx3
ABD: soft, midline incision clean and granulating. heaven
left sided ostomy in place
--- NOTE | 2024-01-28 14:35 | WOUNDNOTE ---
WO RN Note: Blackshear texted Dr. Ernst an update including wound photo re: small LLQ wound just under distal wafer border suspect is an old DAKOTA site wound which was covered with a bordered foam under the ostomy wafer; plan to add alginate with bordered
dressing if needed for drainage with each wafer change. Nursing care plan and discharge instructions updated.
--- NOTE | 2024-01-28 14:38 | CM ---
Reviewed the chart notes and spoke with the patient at the bedside. Left pigtail chest tube place with TPA tx yesterday. CM continues to be available to patient/family and is monitoring medical plan for needs at discharge.
Plan: Discharge plans will depend on the patient's progress. PT previously recommending acute care rehab.
--- NOTE | 2024-01-28 15:03 | W.PN.ID1 ---
Date of Service
Date of Service: January 28, 2024
Today's Communication
Continue current abx.
Assessment / Plan
Diverticular abscess
- s/p IR drainage (12/25/23)
- s/p exploratory lap, colostomy (01/03/24)
- s/p IR drainage perisplenic fluid (01/13/24)
Leukocytosis
-Improved today.
Left pleural effusion
-S/p left chest tube placement
Hx Pulmonary aspergillosis; on Vfend as outpatient.
Recurrent diverticulitis
Anxiety/depression
Hx steroid-induced psychosis
GERD
Asthma
Recommendations:
Left upper quadrant abscess; s/p IR drainage 01/13/2024;
- recultured 01/24 and recovered E. coli -> now zosyn-resistant.
- Prior Enterococcus raffinosus (amp. sensitive). Repeat sensitivities pending.
Repeat CT revealed near complete drainage of left upper quadrant collection.
Continue ampicillin / fortaz.
Continue to monitor white count and temperature curve.
Await further identification and susceptibility data of recovered Enterococcus species.
Continue with voriconazole (suspect for ABPA)
����������������������������������������������������������
Chief Complaint
-: Leukocytosis and Other (Diverticulitis; diverticular abscess)
Subjective / Review of Systems
Patient seen and examined. Chest tube now in place. No fevers or chills.
Review of Systems: No Fever and No Chills
Vital Signs / Physical Exam
Vital Signs
Vital Signs
Temp Pulse Resp BP Pulse Ox
98.5 F 87 18 138/74 95
01/28/24 11:20 01/28/24 13:11 01/28/24 13:11 01/28/24 11:20 01/28/24 13:11
Physical Exam
Constitutional: No Acute Distress, Comfortable and Non-toxic
Eyes: Sclera Anicteric
Pulmonary: Non Labored and Other (Left-sided chest tube in place. Serosanguineous fluid.)
Gastrointestinal: Soft, Non Tender, Non Distended, Normal Bowel Sounds and Other (DAKOTA's in place with purulent drainage.)
Genito-Urinary: Negative Calles
Extremities: Negative Edema, Cyanosis or Erythema
Skin: Negative Rash or Jaundice
Neurological: Awake, Alert and AO x 3
Psychological: Calm
Objective Data
Lab Data
Lab Results
01/28/24 06:17
01/28/24 06:17
PT 15.3 Sec (11.4-14.6) H 01/06/24 15:22
INR 1.21 01/06/24 15:22
APTT 35.6 Sec (23.4-35.0) H 01/06/24 15:22
Estimated Creat Clear 109 ml/min 01/28/24 06:17
Lactic Acid Cancelled 01/04/24 09:00
Total Bilirubin 1.0 mg/dl (0.2-1.3) 01/27/24 08:25
AST 60 U/L (14-36) H 01/27/24 08:25
ALT 30 U/L (0-35) 01/27/24 08:25
Alkaline Phosphatase 261 U/L (38-126) H 01/27/24 08:25
Most recent labs reviewed.
Micro Results:
01/26/24 16:12 Body Fluid Culture - Preliminary
Pleural Fluid No Growth After 48 Hours
Gram Stain - Preliminary
01/25/24 15:56 Wound Culture - Preliminary
Abscess Escherichia coli
Enterococcus species
Gram Stain - Preliminary
01/20/24 14:44 Body Fluid Culture - Final
Pleural Fluid No Growth After 72 Hours
Gram Stain - Final
01/13/24 20:22 Blood Culture - Final
Blood/Venous No Growth - Final Report
01/13/24 18:56 Blood Culture - Final
Blood/Venous No Growth - Final Report
01/15/24 10:08 Respiratory Culture - Final
Sputum Gram Stain - Final
01/13/24 13:00 Wound Culture - Final
Abscess Enterococcus raffinosus
Escherichia coli
Gram Stain - Final
01/09/24 14:28 Nasal Screen MRSA (PCR) - Final
Nose MRSA not detected - performed by PCR methodology.
12/26/23 14:43 Blood Culture - Final
Blood/Venous No Growth - Final Report
12/26/23 12:59 Blood Culture - Final
Blood/Venous No Growth - Final Report
12/25/23 17:30 Wound Culture - Final
Abscess Escherichia coli
Escherichia coli#2
Streptococcus species
Group F Streptococcus
Gram Stain - Final
Imaging:
01/12/2024 CT abdomen/pelvis with contrast: There is a focal predominantly fluid collection in the left upper quadrant, which contains an anterior air-fluid level, compatible with an abscess. This has increased compared to examination of January 07,
2023. Of note, this collection is along the anterior margin of the spleen, without a well-defined plane between the collection and the spleen. There is also an irregular fluid collection within the left pelvis as described, and superimposed
infection of this collection cannot be excluded. There is a pigtail catheter in the left posterior pelvis, entering to the left gluteal region, with no evidence of a collection adjacent to this catheter. Subcutaneous edema, greater in both flanks.
Bilateral pleural effusions, left greater than right. Parenchymal opacity within both lower lobes, greater on the left compared to the right. This is most likely atelectasis, although underlying pneumonia difficult to completely exclude
radiographically.
01/03/2024 CT abdomen/pelvis: Markedly decreased posterior true pelvis abscess in comparison to prior pre-op chest drainage study with pigtail drainage catheter seen in the soft tissues of the left posterior true pelvis. Massively distended right
colon including cecum (cecum measuring up to 12 cm) with marked maximal colonic stool as well as gaseous distention of transverse and proximal descending colon, moderate stool with distention of the distal descending and sigmoid colon, limited in
evaluation without oral contrast opacification. Thickening Of the wall of the distal descending and proximal sigmoid colon which could represent colitis or diverticulitis. Partially obstructing distal colonic mass with inflammation cannot be
excluded. No free air. Please see full dictation for additional detail.
--- NOTE | 2024-01-28 17:13 | WOUNDNOTE ---
WOC RN note: t/c Spoke with Gilbert from [employer] and ordered patient the [employer] secure starter kit including samples of closed end pouch patient requested.
[2024-01-28] MEDS: SINGULAIR 10 MG PO (17:36)
[2024-01-28] MEDS: LOVENOX 40 MG SC (17:36)
--- NOTE | 2024-01-28 18:50 | W.SUR.POST ---
Surgical Immediate Post Op
Note
Chest tube Lytic Instillation Procedure: Procedure #3 of 6
Procedure date of service: 01/28/2024
Medications instilled: Alteplase 10 mg + dornase 5 mg
Reason for procedure: Left-sided loculated pleural effusion
Complications: No immediate complications
Procedure details: Sterile technique was employed including washing hands, sterile gloves, gown and mask. Three-way stopcock was attached to patient's pre-existing chest tube after her existing chest tube was clamped to avoid any air entering into
her pleural space. Alcohol swabs were employed and nursing staff assisted me to instilling lytics. 10 cc and a 0.9% was flushed after each medication was instilled. Three-way stopcock was wiped down with alcohol swab prior to any medication being
attached to it to promote sterile technique. Patient tolerated installations without any immediate complications. Advised RN to clamp chest tube x 2 hours, then unclamp and placed back onto negative suction at -30 cmH2O.
[2024-01-28] MEDS: MELATONIN 5 MG PO (21:06)
[2024-01-28] MEDS: DESYREL 100 MG PO (21:15)
[2024-01-28] MEDS: FLEXERIL 5 MG PO (21:17)
[2024-01-29] MEDS: FORTAZ 2000 MG IV ×2 (01:10→10:18)
[2024-01-29] MEDS: STERILE WATER FOR INJECTION 10 ML IV ×2 (01:10→10:18)
[2024-01-29] MEDS: AMPICILLIN 108 MG IV ×2 (03:33→10:18)
[2024-01-29 05:18] VITALS: BMI 26.2
[2024-01-29 07:18] LABS: % Basophils 0.6 % (0-2); % Eosinophils 0.8 % (0-6); % Immature Granulocytes 0.7 % (0-0.5); % Monocytes 8.4 % (1.7-9.3); % Neutrophils 77.5 % (42.2-75.2); Absolute Basophils 0.1 10^3/uL (0-0.2); Absolute Eosinophils 0.1 10^3/uL (0-0.7); Absolute Immature Granulocytes 0.1 10^3/uL (0-0.05); Absolute Lymphocytes 1.7 10^3/uL (1.2-3.4); Absolute Monocytes 1.2 10^3/uL (0.1-0.6); Absolute Neutrophils 11.1 10^3/uL (1.4-6.5); Hematocrit 27.3 % (37.0-47.0); Hemoglobin 9.3 g/dL (12.0-16.0); Mean Corp Hgb Conc. 34.1 g/dL (33.0-37.0); Mean Corpuscular Hgb 29.2 pg (27.0-31.0); Mean Corpuscular Volume 85.6 fL (81.0-99.0); Mean Platelet Volume 8.8 fL (7.4-10.4); Nucleated Red Blood Cells % 0 %; Platelet Count 490 10^3/uL (130-400); Red Blood Cell Count 3.19 10^6/uL (4.20-5.40); Red Cell Dist. Width 18.1 % (11.5-14.5); White Blood Cell Count 14.3 10^3/uL (4.8-10.8)
[2024-01-29] MEDS: DUONEB 3 ML INH ×3 (07:39→19:00)
[2024-01-29 07:40] VITALS: BP 143/73
[2024-01-29 07:44] LABS: Blood Urea Nitrogen 6 mg/dl (7-17); Calcium 8.3 mg/dl (8.4-10.2); Carbon Dioxide 30 mmol/L (22-30); Chloride 90 mmol/L (98-107); Estimated Creatinine Clearance 109 ml/min; Glucose 99 mg/dl (70-99); Potassium 3.7 mmol/L (3.5-5.1); Sodium 129 mmol/L (135-145); eGFR > 60.00
[2024-01-29] MEDS: NON-FORMULARY ITEM 1 UNIT PO (08:41)
[2024-01-29] MEDS: SYMMETREL 100 MG PO ×2 (08:41→20:22)
[2024-01-29] MEDS: LASIX 40 MG PO ×2 (08:42→15:15)
[2024-01-29] MEDS: FOLVITE 1 MG PO (08:43)
[2024-01-29] MEDS: VITAMIN D3 (cholecalciferol) 25 MCG PO (08:43)
[2024-01-29] MEDS: PROZAC 20 MG PO (08:43)
[2024-01-29] MEDS: NSS (PRESERVATIVE FREE) 10 ML IV (08:44)
[2024-01-29] MEDS: PROTONIX IV 40 MG IV (08:44)
[2024-01-29] MEDS: KCL 40 MEQ PO (08:44)
[2024-01-29] MEDS: TYLENOL 1000 MG PO ×2 (08:48→15:20)
--- NOTE | 2024-01-29 09:17 | W.PN.PUL3 ---
Addendum entered and electronically signed by Shahriar Tanenr MD 01/29/24 13:29:
Check CT Chest today - if left lung does not expand and loculated L-effusion persists, will have cardiothoracic surgery eval for VATS with washout.
Original Note:
Today's Communication / Plan
-
Continue lytic instillation through chest tube - for sessions #4 and #5 today of tPA and dornase
Daily CXR
Up OOB as tolerated
Anxiolytics as needed - would try hydroxyzine as it is less sedating than benzos
PT/OT � acute rehab s/p discharge
Pain control
Assessment
-
53-year-old female with past medical history of recurrent diverticulitis, pulmonary aspergillosis, hyperlipidemia, anxiety/depression, and GERD who presents with abdominal pain. She apparently was recently treated for diverticulitis in October 2023
with Augmentin at [facility] in [place] where she resides. She also reported that she was treated this month for ongoing fungal lung infection with Aspergillus and also given additional antibiotics but unknown what names of these
medications are. She developed a fever about 5 days ago and continues to be on Augmentin for last 3 days. She was visiting her mother in [place] prior to arrival when the pain in her left lower quadrant became severe so she came here to the ""hospital for further care. She was afebrile in the ER to 98.6 �F, 79 pulse rate, breathing at 16 breaths/min, normotensive at 133/77 and saturating 100% on room air. Labs showed leukocytosis to 21.2, mild anemia to 11.5, mild hyponatremia to 134,
mild hyperkalemia to 5.6, and negative lipase of <10. CT A/P on admission showed severe sigmoid diverticulitis with large pericolonic abscess. She was given pain medications in the ER + Levaquin + IV fluids with NS x1L, and admitted to the
hospitalist service with general surgery consulted and antibiotics were started with Zosyn. She underwent IR CT-guided drainage on 12/24 with 170 cc of pale green purulent material seen - this later grew E. coli and group F Streptococcus. Patient
continues to be managed on the floor and was having issues with constipation. Repeat CT A/P performed on 01/02 showing decrease size in the abscess with pigtail drainage catheter seen in place, with massively distended right colon including the
cecum with stool distention and continued suspected distal descending colon/sigmoid diverticulitis. Given patient's worsening pain with distention and no flatus or BM in about 4 days, patient underwent exploratory laparotomy with splenic flexure
takedown, creation of end colostomy and omentectomy on 01/03/2024, and transferred to the ICU postoperatively. There was 150 cc of EBL and no immediate complications. Patient was stabilized and sent to the floor and pulmonary was reconsulted
01/12/2024 with ongoing hypoxemia.
Impression:
#Sigmoid diverticulitis s/p exploratory laparotomy with splenic flexure takedown, end colostomy creation and omentectomy � OR date: 01/12/2024
#Sigmoid diverticulitis c/b large pericolonic abscess s/p IR CT-guided drainage on 12/24 with purulent fluid growing E. coli + group F Streptococcus
#Constipation
#Leukocytosis
#Chronic anemia (unknown baseline but she has been between 8.5�11.5g/dL since admission)
#Lower lobe pulmonary bronchiectasis � likely due to her history of chronic pulmonary aspergillosis diagnosed in fall 2022
#History of pulmonary aspergillosis on voriconazole
#Left-sided pleural effusion status post thoracentesis on 01/20/2024 (exudative fluid with low glucose of 35) + repeat thoracentesis on 01/25 (also low glucose <30) suspicious for complicated effusion (either direct extension from abdomen vs
parapneumonic effusion) now s/p chest tube placed 01/27/2024 by IR
Plan:
Respiratory status improved after thoracentesis 01/20/2024 --> she has re- accumulation of left-sided pleural fluid and underwent repeat thoracentesis on 01/25 with low glucose and PMN predominant --> US during thora shows highly loculated effusion-->
chest tube placed on 01/27/2024 via IR with tPA + dornase BID x 3 days --> for 4th and 5th doses of 6 today
Supplemental oxygen as needed-currently on 3 L/min mid flow-attempt to wean as tolerated
Aspiration precautions
Incentive spirometry encouraged
Acapella
Mucus clearing devices
DuoNebs TID + budesonide BID prn
Singulair continues
Note that the patient takes Breo as an outpatient
Radiographs summarized below
Chest x-ray with significant increase in pleural fluid from 01/13/2024 through 01/19/2024
Dr[address] Paulson contacted interventional radiology for thoracentesis 01/20/24--1000 mL clear yellow exudative pleural fluid
Chest x-ray 01/20/2024-no pneumothorax, small to moderate residual left pleural effusion significantly decreased
Cell count: pH 7.37 - wbc 561 - glu 35 - tp 3.1 - 4123 -- exudative, likely parapneumonic; superimposed pseudoexudate from diuresis cannot be ruled out
Culture negative to date, path negative for malignancy
She also has low albumin state which may be contributing to pleural fluid buildup
She underwent thoracentesis on 01/25 showing low glucose and high PMNs --> concern for complicated effusion and given the highly loculated nature of the effusion --> chest tube placed 01/26 by IR --> give tPA/dornase BID x 3 days
Upper right extremity ultrasound 01/20/2024-no evidence for DVT
Cultures reviewed
Continue antibiotics - pt was on Zosyn (started 12/24/2023) and then changed to Meropenem on 01/13, and as of 01/15 was on Zosyn --> now changed to ceftazidime + Ampicillin per ID
Infectious disease following-correspondence reviewed
Left upper quadrant collection-IR drainage 01/13/2024 --> grew Enterococcus raffinosus + E. coli
Prior LLQ acute [place] drain had dislodged and patient underwent re-insertion by IR on 01/24--> fluid grew MDR-E. coli --> pt now on Ceftazidime + Ampicillin
Continue voriconazole for her history of pulmonary aspergillosis
Follow leukocytosis
Continue diuresis as tolerated (changed from IV to PO lasix on 01/25)
Monitor renal function, electrolytes, intake/output, lower extremity edema and weight
Replace electrolytes as needed
Cardiology following-correspondence reviewed
Surgery following-correspondence reviewed --> no additional procedures needed as of 01/26,and she will be discharged with her abdominal drains that IR placed
Low residual diet per surgery
CT abdomen 01/12/2024-fluid collection left upper quadrant contains anterior air-fluid level compatible with abscess increased compared to 01/08/2024, irregular fluid collection within left pelvis and superimposed infection of this collection cannot be
excluded, pigtail catheter in posterior pelvis no evidence of collection in this area, bilateral pleural effusions left greater than right most likely atelectasis
She is on a low residue diet and seems to be tolerating it well
Intermittent CT abdomen to follow-up on collections --> less CT A/P on 01/24/2024 showing anterior left midline/LLQ small collection with trace mental stable fluid adjacent to the spleen, and free air within the peritoneum (expected post-procedure)
Neurology following due to tardive dyskinesia-correspondence reviewed
Restless legs still an issue-improved
Rotigotine patch now off
Continue amantadine and Ingrezza
DVT prophylaxis-on Lovenox
GI prophylaxis-on Protonix (she takes pantoprazole at home)
Nutrition per surgery
PT/OT --> rec'd acute rehab upon discharge
Pulmonary service will continue to follow along.
Outpatient pulmonary follow-up -she has a pressure testing technician as well as an ID doctor in [place], [place], and I advised her to follow-up with those specialists once she is discharged.
Total time spent today was 35 minutes for this encounter. Time includes reviewing laboratory test/imaging results, reviewing pertinent medical records, obtaining and reviewing medical history, performing an appropriate exam, ordering medications,
tests and procedures. Time also includes documentation of this encounter, coordinating patient care and communicating with other healthcare professionals. Total time does not include separately billed tests performed on this date of service.
Data:
Chest x-ray 01/13/2024-moderate left pleural effusion which is stable and left lower lobe infiltrate concerning for pneumonia also stable
Chest ultrasound 01/11/2024-small to moderate pleural effusion, thoracentesis canceled-not enough fluid for evacuation
Chest x-ray 01/19/2024-large left pleural effusion
Chest x-ray 01/20/2024-large left pleural effusion not significantly changed, borderline pulmonary edema with cephalization
Chest x-ray 01/26/2024-Loculated moderate left pleural effusion. Mildly improved. No pneumothorax.
Chest x-ray 01/27/2024-Residual small volume left pleural fluid and left basilar atelectasis, improved as compared with prior.
Chest x-ray 01/28/2024- Left thoracostomy drains are unchanged in position; Slight improvement in left pleural opacity, consistent with improving left pleural effusion; Partial atelectasis versus pneumonia in left lower lobe. This is stable
Echo 01/19/2024: EF 50%, stage I DD, mild TR, PAP 35 to 40 mmHg, mild WI, pleural effusion present, trivial pericardial effusion. IVC is moderately dilated
Subjective Data
-
Date of Service:
Date of Service: January 29, 2024
Chief Complaint: Pulmonary Follow Up and Dyspnea Follow Up
Subjective:
Patient seen and evaluated today at bedside. Chest tube drainage over the last 24 hours was 700 cc. Patient remains afebrile overnight. CXR from today shows minimal change compared to yesterday. Patient getting her fourth and fifth chest tube
lytic instillations today. She is breathing comfortably on 2 L/min nasal cannula.
Review of Systems
General: Other (Negative unless mentioned above)
Objective Data
Data Reviewed
Vital Signs / I&O / Oxygen:
Vital Signs
Temp Pulse Resp BP Pulse Ox
98.3 F 84 16 143/73 94
01/29/24 07:40 01/29/24 08:42 01/29/24 07:43 01/29/24 08:42 01/29/24 07:43
Intake and Output
01/28/24 01/29/24 01/30/24
06:59 06:59 06:59
Intake Total 841 / 841 1676 / 1676
Output Total 655 / 655 755 / 755
Balance 186 / 186 921 / 921
SaO2 94
Nasal Cannula flow liters per 2
minute
Physical Exam
General: Respiratory Distress (n), Comfortable, Chills (negative) and Other (deconditioned appearance)
HEENT: Normocephalic and Anicteric
Cardiovascular: S1-S2 and Peripheral Edema (Trace edema in lower extremities bilaterally)
Respiratory: Wheeze (negative), Crackles (bases bilaterally), Rhonchi (negative), Non-Labored Respirations, Accessory Resp Muscle Use (n), Stridor (n), Chest Tube (Left hemithorax (placed via IR on 01/27/2024)) and Other (Diminished BS at left base
to left middle field + dullness to percussion on L in base to left middle lung field)
GI: Soft, Distended and Tender
Neurology: AO x 3 and Tremors (occasional in her r-hand)
Skin: Warm, Dry, Cyanosis (n) and Jaundice (n)
Labs/Micro/Reports
Lab Data
01/29/24 06:32
01/29/24 06:32
Microbiology
01/26/24 16:12 Pleural Fluid Body Fluid Culture - Preliminary
No Growth After 48 Hours
01/26/24 16:12 Pleural Fluid Gram Stain - Preliminary
01/25/24 15:56 Abscess Wound Culture - Preliminary
Escherichia coli
Enterococcus species
01/25/24 15:56 Abscess Gram Stain - Preliminary
--- NOTE | 2024-01-29 09:25 | W.PN.HOSP.TC ---
Today's Communication/Plan
-
IV antibiotics. CT chest care.
Assessment / Plan
Assessment / Plan
Physical exam:
General: Acute and chronically ill
HEENT: Normocephalic, Atraumatic and Moist Mucous Membranes
Respiratory: Clear to Auscultation; Negative Wheezes, Rales or Rhonchi. CT in place in the left side
Cardiac: Regular Rhythm and S1/S2
GI: Soft, postop findings, drain with active drainage, non tender and Nondistended
Musculoskeletal: No Clubbing, No Cyanosis and No Edema
Neuro: Awake, Alert and Oriented
Psych: Calm
A/P:
Sigmoid diverticulitis with abscess:
-h/o diverticulosis/diverticulitis
-s/p abscess drainage 12/25/23 by IR. E. coli resistant to Zosyn from 01/24 and also Enterococcus. E. coli pansensitive and Enterococcus Raffinosus on 01/12 wound cultures. Pleural fluid cultures pending but no growth.
-with findings of massively distended right colon including the cecum on CT scan of the abdomen pelvis on January 03, 2024 the patient was taken to the OR for Exploratory laparotomy, takedown splenic flexure, creation end colostomy, omentectomy
-ID changed antibiotics to IV ampicillin and IV Fortaz based on sensitivities on 01/26.
-Status post abdominal drains on 01/12 and 01/24.
-Follow-up repeat blood cultures for recurrent fevers since 01/12 but so far no growth but initial wound cultures growing E. coli and Enterococcus Raffinosus
- Rpt CT A/P from 01/23 noted -cw LUQ drain per surgery
-Repeated labs today
-Surgery following
-Low residue diet per surgery
Left Pleural effusion, complicated loculated effusion:
Status post chest tube on 01/26
Plan to do tPA plus dornase for 3 days.
Pleural fluid cultures pending but no growth.
Pulmonary following
Prior to today:
Left pleural effusion s/p thoracentesis 01/25 (exudative)
Acute hypoxic respiratory insufficiency:
Now off of high flow oxygen for increased PEEP--> now down to 2-3 L of oxygen. Wean as tolerated.
Continue to titrate oxygen as able.
Pulmonary following-on oxygen and chest tube in place
Cardiology signed off-on oral diuresis
Continue incentive spirometry
Continue Acapella
Continue bronchodilators
Aspiration precautions
Leukocytosis:
WBC 14.3 today
Afebrile
Continue current antibiotics per ID
Continue to trend.
Abnormal EKG-patient now has poor R waves in the anterior leads and also T wave inversion. Echo also showed low normal EF of 50%. Appreciate cardiology input.
Dyskinetic movements/Restless Legs:
-Psychiatry and neurology have decided to start her on Ingrezza. Seems to be working well. Pt feeling improved from her movements standpoint. She also has been placed on Ativan per psychiatry.
-Also started on amantadine.
-Stopped Requip and Neupro patch
-Started melatonin
-Remains on trazodone 100 mg as needed, Flexeril as needed, Dilaudid as needed; psych discussed with outpatient psychiatrist who felt she did not have manic episode but patient decided to continue Depakote. Depakote now discontinued .
-Seroquel stopped as Vfend increases serum concentration of Seroquel.
-Avoid antidopaminergic agents as much as possible
Thrombosis left upper extremity:
Superficial thrombosis in the left basilic vein (no DVT)
On Lovenox 40 mg daily for prevention DVT and will be enough for above plus local care.
PICC dced 01/19
Acute blood loss anemia:
-Aim to keep H&H more than 7. Follow blood work. Hemoglobin 9.3 today
-s/p 4U pRBCs
Hyponatremia -sodium 129 today. Pt was volume overloaded .Improving. Continue to follow
Other problems:
h/o pulmonary Aspergillus: since Apr 2023. cont Vfend.
Hyperkalemia, resolved
HLD
GERD: cont PPI
Anxiety/depression: Continue Trazodone PRN/Prozac/Depakote. Seroquel stopped by psych.
FULL/Lovenox
CW PT/OT eval/tx
Time spent 50 minutes.
Anticipated Discharge: > 48 hours
Subjective/Interval History
-
Date of Service: January 29, 2024
Patient feels better overall. Afebrile.
Objective Data
-
Labs:
Laboratory Results
01/29/24
06:32
WBC 14.3 H
Hgb 9.3 L
Hct 27.3 L
Plt Count 490 H
Sodium 129 L
Potassium 3.7
Chloride 90 L
Carbon Dioxide 30
BUN 6 L
Creatinine 0.4 L
Glucose 99
Calcium 8.3 L
Vital Signs:
Vital Signs
Temp Pulse Resp BP Pulse Ox
98.3 F 84 16 143/73 94
01/29/24 07:40 01/29/24 08:42 01/29/24 07:43 01/29/24 08:42 01/29/24 07:43
I&O
01/28/24 01/29/24 01/30/24
06:59 06:59 06:59
Intake Total 841 / 841 1676 / 1676
Output Total 655 / 655 755 / 755
Balance 186 / 186 921 / 921
[2024-01-29] MEDS: VFEND 200 MG PO ×2 (10:15→21:13)
--- NOTE | 2024-01-29 10:23 | W.SUR.POST ---
Surgical Immediate Post Op
Note
Chest tube Lytic Instillation Procedure: Procedure # 4 of 6
Procedure date of service: 01/29/2024
Medications instilled: Alteplase 10 mg + dornase 5 mg
Reason for procedure: Left-sided loculated pleural effusion
Complications: No immediate complications
Procedure details: Sterile technique was employed including washing hands, sterile gloves, gown and mask. Three-way stopcock was utilized and turned off towards patient before any medication was attached to the leur lock to avoid air entering into
her pleural space. Alcohol swabs were used and nursing staff assisted me to instilling lytics. 10 cc of 0.9% NS was flushed after each medication was instilled. Three-way stopcock was wiped down with alcohol swab prior to any medication being
attached to it to promote sterile technique. Patient tolerated instillations without any immediate complication. Advised RN to clamp chest tube x 2 hours, then unclamp and place back onto negative suction at -40 cmH2O.
--- NOTE | 2024-01-29 11:28 | W.PN.ID1 ---
Date of Service
Date of Service: January 29, 2024
Today's Communication
Unasyn and ceftriaxone.
Assessment / Plan
Diverticular abscess
- s/p IR drainage (12/25/23)
- s/p exploratory lap, colostomy (01/03/24)
- s/p IR drainage perisplenic fluid (01/13/24)
- s/p IR drain placement to pelvic abscess (01/25/24)
Leukocytosis
Left pleural effusion
-S/p left chest tube placement, pleurolysis
- culture negative to date
Hx Pulmonary aspergillosis; on Vfend as outpatient.
Recurrent diverticulitis
Anxiety/depression
Hx steroid-induced psychosis
GERD
Asthma
Recommendations:
Left upper quadrant abscess; s/p IR drainage 01/13/2024;
- recultured 01/24 and recovered Enterococcus, E. coli -> now zosyn-resistant.
- Prior Enterococcus raffinosus (amp. sensitive). Repeat sensitivities pending.
Repeat CT revealed near complete drainage of left upper quadrant collection.
Continue ampicillin/sulbactam
Narrow ceftazidime to ceftriaxone.
Continue to monitor white count and temperature curve.
Continue with voriconazole (suspect for ABPA)
����������������������������������������������������������
Chief Complaint
-: Leukocytosis and Other (Diverticulitis; diverticular abscess)
Subjective / Review of Systems
Feels stable.
Vital Signs / Physical Exam
Vital Signs
Vital Signs
Temp Pulse Resp BP Pulse Ox
98.3 F 84 16 143/73 94
01/29/24 07:40 01/29/24 08:42 01/29/24 07:43 01/29/24 08:42 01/29/24 07:43
Physical Exam
Constitutional: No Acute Distress
Gastrointestinal: Soft, Non Tender and Non Distended
Neurological: AO x 3
Objective Data
Lab Data
Lab Results
01/29/24 06:32
01/29/24 06:32
PT 15.3 Sec (11.4-14.6) H 01/06/24 15:22
INR 1.21 01/06/24 15:22
APTT 35.6 Sec (23.4-35.0) H 01/06/24 15:22
Estimated Creat Clear 109 ml/min 01/29/24 06:32
Lactic Acid Cancelled 01/04/24 09:00
Total Bilirubin 1.0 mg/dl (0.2-1.3) 01/27/24 08:25
AST 60 U/L (14-36) H 01/27/24 08:25
ALT 30 U/L (0-35) 01/27/24 08:25
Alkaline Phosphatase 261 U/L (38-126) H 01/27/24 08:25
Most recent labs reviewed.
Micro Results:
01/26/24 16:12 Body Fluid Culture - Final
Pleural Fluid No Growth After 72 Hours
Gram Stain - Final
01/25/24 15:56 Wound Culture - Preliminary
Abscess Escherichia coli
Enterococcus species
Gram Stain - Preliminary
01/20/24 14:44 Body Fluid Culture - Final
Pleural Fluid No Growth After 72 Hours
Gram Stain - Final
01/13/24 20:22 Blood Culture - Final
Blood/Venous No Growth - Final Report
01/13/24 18:56 Blood Culture - Final
Blood/Venous No Growth - Final Report
01/15/24 10:08 Respiratory Culture - Final
Sputum Gram Stain - Final
01/13/24 13:00 Wound Culture - Final
Abscess Enterococcus raffinosus
Escherichia coli
Gram Stain - Final
01/09/24 14:28 Nasal Screen MRSA (PCR) - Final
Nose MRSA not detected - performed by PCR methodology.
12/26/23 14:43 Blood Culture - Final
Blood/Venous No Growth - Final Report
12/26/23 12:59 Blood Culture - Final
Blood/Venous No Growth - Final Report
12/25/23 17:30 Wound Culture - Final
Abscess Escherichia coli
Escherichia coli#2
Streptococcus species
Group F Streptococcus
Gram Stain - Final
Imaging:
01/12/2024 CT abdomen/pelvis with contrast: There is a focal predominantly fluid collection in the left upper quadrant, which contains an anterior air-fluid level, compatible with an abscess. This has increased compared to examination of January 07,
2023. Of note, this collection is along the anterior margin of the spleen, without a well-defined plane between the collection and the spleen. There is also an irregular fluid collection within the left pelvis as described, and superimposed
infection of this collection cannot be excluded. There is a pigtail catheter in the left posterior pelvis, entering to the left gluteal region, with no evidence of a collection adjacent to this catheter. Subcutaneous edema, greater in both flanks.
Bilateral pleural effusions, left greater than right. Parenchymal opacity within both lower lobes, greater on the left compared to the right. This is most likely atelectasis, although underlying pneumonia difficult to completely exclude
radiographically.
01/03/2024 CT abdomen/pelvis: Markedly decreased posterior true pelvis abscess in comparison to prior pre-op chest drainage study with pigtail drainage catheter seen in the soft tissues of the left posterior true pelvis. Massively distended right
colon including cecum (cecum measuring up to 12 cm) with marked maximal colonic stool as well as gaseous distention of transverse and proximal descending colon, moderate stool with distention of the distal descending and sigmoid colon, limited in
evaluation without oral contrast opacification. Thickening Of the wall of the distal descending and proximal sigmoid colon which could represent colitis or diverticulitis. Partially obstructing distal colonic mass with inflammation cannot be
excluded. No free air. Please see full dictation for additional detail.
[2024-01-29 11:30] VITALS: BP 148/76
--- NOTE | 2024-01-29 11:51 | W.PN.UPDATE ---
Addendum entered and electronically signed by Octavia Glover MD 01/29/24 16:13:
after speaking w patient re tremor see below she said she would like to stop flexeril for one and would try to minimize use of other medications which could contribute to tremor.
Addendum entered and electronically signed by Octavia Glover MD 01/29/24 16:04:
discussed resting tremor w dr workman. he does not recommend other medication to rx. suggested to patient again to minimize as much as possible see below meds which have tremor as a side effect.
Original Note:
Update Note
Progress Note Update
patient seen chart reviewed. discussed with nursing. carisa continues to improve psychiatrically despite the many medical setbacks she has endured. we discussed changing ativan to po. she is trying to be very aware of use of pain meds and minimize
where possible. she is thinking ahead and is very motivated for an acute rehab program such as [place]. wants to work hard to get herself back in good physical shape. she has some complaint of resting tremor. flexeril, opiates, trazodone all can
cause tremors. this tremor is not necessarily related to the issue of TD. she is no longer on any antipsychotics. i will double check w dr workman if there is something we can do but i am reluctant to add more medications. i am continuing to work on
getting her a supply of ingrezza. by thursday i should have more ingrezza or a coupon to obtain it at lower cost.
--- NOTE | 2024-01-29 12:01 | W.PN.GS2 ---
Today's Communication / Plan
-
Continue drains
Assessment / Plan
-
Assessment: 53 yo female with recent aspergillus pneumonia on home O2 and on recent steroids presenting with complicated diverticulitis with large pelvic abscess, failed initial nonoperative management now status post Garcia's procedure.
12/25/2023 s/p IR drainage of abscess cx with 2 strep species and 2 species of e.coli noted
01/03/2024 s/p exploratory laparotomy with takedown of splenic flexure, creation end colostomy with omentectomy
01/13/2024 s/p IR drain post op perisplenic fluid collection 01/14/24 cx with enterococcus/e. coli.
Off TPN since 01/12, on LRD
01/24/2024 Left lower quadrant DAKOTA that was previously draining pus dislodged. CT repeated with recurrent pleural effusion and fluid collection to the left mid/lower abd. No extravasation of contrast from the rectal stump.
01/27/[address] Left [address] chest tube place with TPA tx
AFVSS
Leukocytosis stable, slight rise today
abd JPs unchanged - not much outputs but still ?purulence noted
Plan:
Continue local wound care
low residue diet and encourage PO intake/supplements; okay for family to bring in food/supplements from home.
Pain control as needed
Continue abx per ID recs
Ostomy teaching
PT/OT following, ?acute rehab upon discharge
Continue drains to bulb suction, Flush IR drain daily.
Daily dressing changes to midline incision, dry gauze packing to open area in middle of wound
DVT: SCDs as tolerated. Lovenox sq
Subjective Data
-
Date of Service: January 29, 2024
Patient seen and examined at bedside. Denies n/v. Tolerating diet. No abdominal pain. Pain to CT site.
Objective Data
-
Intake and Output
01/28/24 01/29/2424
06:59 06:59 06:59
Intake Total 841 / 841 1676 / 1676
Output Total 655 / 655 755 / 755
Balance 186 / 186 921 / 921
Intake:
Oral fluids 480 / 480 1440 / 1440
IV fluids (Total) 125 / 125
NSS 125 / 125
IV piggybacks 216 / 216 216 / 216
Amount instilled into Drain (
Total)
Left Lower Abdomen B
Left Upper Abdomen Placed in IR
Output:
CT Output (Total) 600 / 600 700 / 700
Left Lateral A 600 / 600 700 / 700
Drain Output (Total) 55 / 55 55 / 55
Left Lower Abdomen B
Left Upper Abdomen Placed in IR 35 / 35
Other:
Number of approximated SMALL 1 3
amounts of urine
Number of approximated MODERATE 5 6
amounts of urine
Number of approximated LARGE 4
amounts of urine
Vital Signs
Temp Pulse Resp BP Pulse Ox
98.8 F 89 20 148/76 95
01/29/24 11:30 01/29/24 11:30 01/29/24 11:30 01/29/24 11:30 01/29/24 11:30
Lab Results
01/29/24 06:32
01/29/24 06:32
Calcium 8.3 mg/dl (8.4-10.2) L 01/29/24 06:32
Phosphorus 3.8 mg/dl (2.5-4.5) 01/25/24 05:01
Magnesium 1.7 mg/dl (1.6-2.3) 01/27/24 08:25
Total Bilirubin 1.0 mg/dl (0.2-1.3) 01/27/24 08:25
AST 60 U/L (14-36) H 01/27/24 08:25
ALT 30 U/L (0-35) 01/27/24 08:25
Alkaline Phosphatase 261 U/L (38-126) H 01/27/24 08:25
Total Protein 5.7 g/dl (6.3-8.2) L 01/27/24 08:25
Albumin 2.7 g/dl (3.5-5.0) L 01/27/24 08:25
Physical Exam
-
NAD AAOx3
ABD: soft, midline incision clean and granulating. Open area to middle of incision granulating well with ss drainage.
DAKOTA #1 old bloody drainage DAKOTA #2 cloudy serous fluid
left sided ostomy with pink, viable stoma: productive of stool/flatus
[2024-01-29] MEDS: ROXICODONE 5 MG PO ×2 (12:29→17:18)
[2024-01-29] MEDS: ROCEPHIN 2000 MG IV (12:31)
[2024-01-29] MEDS: STERILE WATER FOR INJECTION 20 ML IV (12:31)
--- NOTE | 2024-01-29 13:49 | PTCARENOTE ---
This RN assisted in tPA and dornase instillation with pulmonary this AM. Chest tube clamped per order for 2 hours post-instillation, reconnected to suction at -40 per order. MD aware, no new orders at this time.
--- NOTE | 2024-01-29 14:19 | CM ---
Reviewed the chart notes. Left pigtail chest tube in place. PT recommending Acute Rehab once medically stable. CM continues to be available to patient/family and is monitoring medical plan for needs at discharge.
Plan: Acute Rehab once medically stable. Precert will be required.
[2024-01-29] MEDS: UNASYN IV ×2 (15:21→21:13)
[2024-01-29 15:34] VITALS: BP 138/76
[2024-01-29] MEDS: ATIVAN 0.5 MG PO (16:14)
[2024-01-29 16:22] VITALS: BP 154/53; PULSE 91; O2SAT 94
[2024-01-29] MEDS: SINGULAIR 10 MG PO (17:18)
[2024-01-29] MEDS: LOVENOX 40 MG SC (17:19)
--- NOTE | 2024-01-29 18:39 | W.SUR.POST ---
Surgical Immediate Post Op
Note
Chest tube Lytic Instillation Procedure: Procedure # 5 of 6
Procedure date of service: 01/29/2024
Medications instilled: Alteplase 10 mg + dornase 5 mg
Reason for procedure: Left-sided loculated pleural effusion
Complications: No immediate complications
Procedure details: Sterile technique was employed including washing hands, sterile gloves, gown and mask. Three-way stopcock was utilized and turned off towards patient before any medication was attached to the Leur-lock to minimize air entering
into her pleural space. Alcohol swabs were used and nursing staff assisted me to instilling lytics. 10 cc of 0.9% NS was flushed after each medication was instilled. Three-way stopcock was wiped down with alcohol swab prior to any medication
being attached to it to promote sterile technique. Patient tolerated instillations without any immediate complication. Advised RN to clamp chest tube x 2 hours, then unclamp and place back onto negative suction at -40 cmH2O.
[2024-01-29 19:40] VITALS: BP 135/68
[2024-01-29] MEDS: MELATONIN 5 MG PO (21:13)
[2024-01-29] MEDS: FLUSH (NSS) 2 FLUSH IV (21:14)
[2024-01-29] MEDS: DILAUDID 0.5 MG IV (21:16)
[2024-01-29 23:05] VITALS: BP 134/60
[2024-01-30] MEDS: DILAUDID 0.5 MG IV ×2 (00:16→18:35)
[2024-01-30] MEDS: FLUSH (NSS) 2 FLUSH IV ×7 (00:16→18:36)
[2024-01-30 03:27] VITALS: BP 137/66
[2024-01-30] MEDS: UNASYN IV ×3 (04:06→16:32)
[2024-01-30 06:00] VITALS: BMI 26.4
[2024-01-30] MEDS: DUONEB 3 ML INH ×3 (07:38→19:29)
[2024-01-30 07:52] VITALS: BP 154/80
[2024-01-30] MEDS: PROZAC 20 MG PO (08:34)
[2024-01-30] MEDS: FOLVITE 1 MG PO (08:34)
[2024-01-30] MEDS: VITAMIN D3 (cholecalciferol) 25 MCG PO (08:34)
[2024-01-30] MEDS: KCL 40 MEQ PO (08:34)
[2024-01-30] MEDS: SYMMETREL 100 MG PO ×2 (08:34→21:12)
[2024-01-30] MEDS: LASIX 40 MG PO ×2 (08:34→16:32)
[2024-01-30] MEDS: NSS (PRESERVATIVE FREE) 10 ML IV (08:35)
[2024-01-30] MEDS: PROTONIX IV 40 MG IV (08:35)
[2024-01-30] MEDS: NON-FORMULARY ITEM 1 UNIT PO (08:38)
[2024-01-30] MEDS: TESSALON PERLES 100 MG PO (09:02)
[2024-01-30] MEDS: ATIVAN 0.5 MG PO (09:02)
[2024-01-30] MEDS: TYLENOL 1000 MG PO (09:02)
--- NOTE | 2024-01-30 09:15 | W.PN.HOSP.TC ---
Today's Communication/Plan
-
IV antibiotics. Continue drains. CT chest care.
Assessment / Plan
Assessment / Plan
Physical exam:
General: Acute and chronically ill
HEENT: Normocephalic, Atraumatic and Moist Mucous Membranes
Respiratory: Clear to Auscultation; Negative Wheezes, Rales or Rhonchi. CT in place in the left side
Cardiac: Regular Rhythm and S1/S2
GI: Soft, postop findings, drain with active drainage, non tender and Nondistended
Musculoskeletal: No Clubbing, No Cyanosis and No Edema
Neuro: Awake, Alert and Oriented
Psych: Calm
A/P:
Sigmoid diverticulitis with abscess:
-h/o diverticulosis/diverticulitis
-s/p abscess drainage 12/25/23 by IR. E. coli resistant to Zosyn from 01/24 and also Enterococcus. E. coli pansensitive and Enterococcus Raffinosus on 01/12 wound cultures. Pleural fluid cultures pending but no growth.
-with findings of massively distended right colon including the cecum on CT scan of the abdomen pelvis on January 03, 2024 the patient was taken to the OR for Exploratory laparotomy, takedown splenic flexure, creation end colostomy, omentectomy
-Continue antibiotics, IV ampicillin and Fortaz based on sensitivities on 01/26.
-Status post abdominal drains on 01/12 and 01/24.
-Follow-up repeat blood cultures for recurrent fevers since 01/12 but so far no growth but initial wound cultures growing E. coli and Enterococcus Raffinosus
- Rpt CT A/P from 01/23 noted -cw drain per surgery/IR
-Surgery following
-Low residue diet per surgery
Left Pleural effusion, complicated loculated effusion:
Status post chest tube on 01/26
Plan to do tPA plus dornase for 3 days per pulm.
Pleural fluid cultures pending but no growth.
Pulmonary following
Prior to today:
Left pleural effusion s/p thoracentesis 01/25 (exudative)
Acute hypoxic respiratory insufficiency:
Now off of high flow oxygen for increased PEEP--> now down to 2-3 L of oxygen. Wean as tolerated.
Continue to titrate oxygen as able.
Pulmonary following-on oxygen and chest tube in place
Cardiology signed off-on oral diuresis
Continue incentive spirometry
Continue Acapella
Continue bronchodilators
Aspiration precautions
Leukocytosis:
WBC 12.2 today
Afebrile
Continue current antibiotics per ID
Continue to trend.
Abnormal EKG-patient now has poor R waves in the anterior leads and also T wave inversion. Echo also showed low normal EF of 50%. Appreciate cardiology input.
Dyskinetic movements/Restless Legs:
-Psychiatry and neurology have decided to start her on Ingrezza. Seems to be working well. Pt feeling improved from her movements standpoint. She also has been placed on Ativan per psychiatry.
-Also started on amantadine.
-Stopped Requip and Neupro patch
-Started melatonin
-Remains on trazodone 100 mg as needed, Flexeril as needed, Dilaudid as needed; psych discussed with outpatient psychiatrist who felt she did not have manic episode but patient decided to continue Depakote. Depakote now discontinued .
-Seroquel stopped as Vfend increases serum concentration of Seroquel.
-Avoid antidopaminergic agents as much as possible
Thrombosis left upper extremity:
Superficial thrombosis in the left basilic vein (no DVT)
On Lovenox 40 mg daily for prevention DVT and will be enough for above plus local care.
PICC dced 01/19
Acute blood loss anemia:
-Aim to keep H&H more than 7. Follow blood work. Hemoglobin 8.7 today
-s/p 4U pRBCs
Hyponatremia -sodium 127 today. Pt was volume overloaded .Improving. Continue to follow
Other problems:
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 cont Vfend.
Hyperkalemia, resolved
HLD
GERD: cont PPI
Anxiety/depression: Continue Trazodone PRN/Prozac/Depakote. Seroquel stopped by psych.
FULL/Lovenox
CW PT/OT eval/tx
Time spent 50 minutes.
Anticipated Discharge: > 48 hours
Subjective/Interval History
-
Date of Service: January 30, 2024
Patient feels better overall. No nausea or vomiting. Discomfort at the CT site and in the abdomen at times. Afebrile
Objective Data
-
Labs:
Laboratory Results
01/30/24
08:33
WBC Pending
Hgb Pending
Hct Pending
Plt Count Pending
Sodium Pending
Potassium Pending
Chloride Pending
Carbon Dioxide Pending
BUN Pending
Creatinine Pending
Glucose Pending
Calcium Pending
Vital Signs:
Vital Signs
Temp Pulse Resp BP Pulse Ox
98.2 F 91 18 154/80 94
01/30/24 07:52 01/30/24 07:52 01/30/24 07:52 01/30/24 07:52 01/30/24 07:52
I&O
01/29/24 01/30/24 01/31/24
06:59 06:59 06:59
Intake Total 1676 / 1676 1994
Output Total 755 / 755 259 / 259
Balance 921 / 921 1736 / 1736 -5 / -5
[2024-01-30 09:17] LABS: % Basophils 0.8 % (0-2); % Immature Granulocytes 0.7 % (0-0.5); % Lymphocytes 13.7 % (20.5-51.1); % Monocytes 8.6 % (1.7-9.3); % Neutrophils 74.2 % (42.2-75.2); Absolute Basophils 0.1 10^3/uL (0-0.2); Absolute Eosinophils 0.2 10^3/uL (0-0.7); Absolute Immature Granulocytes 0.1 10^3/uL (0-0.05); Absolute Lymphocytes 1.7 10^3/uL (1.2-3.4); Absolute Monocytes 1.1 10^3/uL (0.1-0.6); Absolute Neutrophils 9.1 10^3/uL (1.4-6.5); Hematocrit 26.4 % (37.0-47.0); Hemoglobin 8.7 g/dL (12.0-16.0); Mean Corpuscular Hgb 29.5 pg (27.0-31.0); Mean Corpuscular Volume 89.5 fL (81.0-99.0); Mean Platelet Volume 8.6 fL (7.4-10.4); Nucleated Red Blood Cells % 0 %; Platelet Count 426 10^3/uL (130-400); Red Blood Cell Count 2.95 10^6/uL (4.20-5.40); Red Cell Dist. Width 18.8 % (11.5-14.5); White Blood Cell Count 12.2 10^3/uL (4.8-10.8)
[2024-01-30 09:36] LABS: Blood Urea Nitrogen 9 mg/dl (7-17); Carbon Dioxide 27 mmol/L (22-30); Chloride 92 mmol/L (98-107); Estimated Creatinine Clearance 109 ml/min; Glucose 112 mg/dl (70-99); Potassium 3.9 mmol/L (3.5-5.1); Sodium 127 mmol/L (135-145); eGFR > 60.00
[2024-01-30] MEDS: VFEND 200 MG PO ×2 (10:04→21:12)
--- NOTE | 2024-01-30 11:35 | W.PN.UPDATE ---
Update Note
Progress Note Update
Psychiatry follow up. Patient is sitting in chair resting. She states she is doing ok. Pain is manageable. She was able to sleep last night. She is having some visitors today which she says helps. She states she is staying optimistic and hopeful to
get better and out of the hospital.
Current medications:
melatonin 5mg HS, Ingrezza 40mg daily, amantadine 100mg BID, Prozac 20mg daily, trazodone 100mg PRN insomnia, Ativan 0.5mg q12 hours PRN anxiety
MSE- good eye contact. fluent speech. Logical and goal directed. Denies SI/HI/AVH. Fair I/J.
Plan- continue current regimen and monitoring. Psychiatry will follow.
[2024-01-30 11:53] VITALS: BP 184/95
[2024-01-30] MEDS: ROCEPHIN 2000 MG IV (12:14)
[2024-01-30] MEDS: STERILE WATER FOR INJECTION 20 ML IV (12:14)
[2024-01-30] MEDS: ROXICODONE 5 MG PO ×2 (14:22→21:16)
--- NOTE | 2024-01-30 15:20 | OR.RPT ---
Operative Report
Operative Report
Procedure: L intrapleural tPA-DNase (01/13)
Indication: complex L pleural effusion (suspected culture negative empyema)
[employer]: Alexis Portillo MD
Procedure details:
Indication and rationale of intrapleural tPA-DNase discussed with patient's daughter at bedside. To complete 01/13 doses with current dosing today.
L chest tube inspected, found free of kinks.
L pleur-evac with total of 2,100 mL of serosanguineous pleural fluid at time of procedure (250 mL in last 24 hrs)
L intrapleural instillation of tPA and DNase via chest tube: chest tube clamped for 2 hrs. After unclampling tube, drainage of 70 mL was marked at pleu-evac chamber.
Patient tolerated procedure with no issue
--- NOTE | 2024-01-30 15:24 | W.PN.PUL3 ---
Today's Communication / Plan
-
01/13 dose i-pleural lysis
Atbs
Assessment
-
53-year-old female with past medical history of recurrent diverticulitis, pulmonary aspergillosis, hyperlipidemia, anxiety/depression, and GERD who presents with abdominal pain. She apparently was recently treated for diverticulitis in October 2023
with Augmentin at [facility] in [place] where she resides. She also reported that she was treated this month for ongoing fungal lung infection with Aspergillus and also given additional antibiotics but unknown what names of these
medications are. She developed a fever about 5 days ago and continues to be on Augmentin for last 3 days. She was visiting her mother in [place] prior to arrival when the pain in her left lower quadrant became severe so she came here to the
hospital for further care. She was afebrile in the ER to 98.6 �F, 79 pulse rate, breathing at 16 breaths/min, normotensive at 133/77 and saturating 100% on room air. Labs showed leukocytosis to 21.2, mild anemia to 11.5, mild hyponatremia to 134,
mild hyperkalemia to 5.6, and negative lipase of <10. CT A/P on admission showed severe sigmoid diverticulitis with large pericolonic abscess. She was given pain medications in the ER + Levaquin + IV fluids with NS x1L, and admitted to the
hospitalist service with general surgery consulted and antibiotics were started with Zosyn. She underwent IR CT-guided drainage on 12/24 with 170 cc of pale green purulent material seen - this later grew E. coli and group F Streptococcus. Patient
continues to be managed on the floor and was having issues with constipation. Repeat CT A/P performed on 01/02 showing decrease size in the abscess with pigtail drainage catheter seen in place, with massively distended right colon including the
cecum with stool distention and continued suspected distal descending colon/sigmoid diverticulitis. Given patient's worsening pain with distention and no flatus or BM in about 4 days, patient underwent exploratory laparotomy with splenic flexure
takedown, creation of end colostomy and omentectomy on 01/03/2024, and transferred to the ICU postoperatively. There was 150 cc of EBL and no immediate complications. Patient was stabilized and sent to the floor and pulmonary was reconsulted
01/12/2024 with ongoing hypoxemia.
Impression:
#Sigmoid diverticulitis s/p exploratory laparotomy with splenic flexure takedown, end colostomy creation and omentectomy � OR date: 01/12/2024
#Sigmoid diverticulitis c/b large pericolonic abscess s/p IR CT-guided drainage on 12/24 with purulent fluid growing E. coli + group F Streptococcus
#Constipation
#Leukocytosis
#Chronic anemia (unknown baseline but she has been between 8.5�11.5g/dL since admission)
#Lower lobe pulmonary bronchiectasis � likely due to her history of chronic pulmonary aspergillosis diagnosed in fall 2022
#History of pulmonary aspergillosis on voriconazole
#Left-sided pleural effusion status post thoracentesis on 01/20/2024 (exudative fluid with low glucose of 35) + repeat thoracentesis on 01/25 (also low glucose <30) suspicious for complicated effusion (either direct extension from abdomen vs
parapneumonic effusion) now s/p chest tube placed 01/27/2024 by IR
Plan:
Respiratory status improved after thoracentesis 01/20/2024 --> she everton- accumulation of left-sided pleural fluid and underwent repeat thoracentesis on 01/25 with low glucose and PMN predominant --> US during thora shows highly loculated effusion-->
chest tube placed on 01/27/2024 via IR with tPA + dornase BID x 3 days --> for 4th and 5th doses of 6 on 01-[address] s/c 01-28: decreasing small L PF, chest tube at target location
CXR 01-29: portable, residual L PF, L base pigtail cath in place, no free air. LLQ pigtail cath
6th dose tPA/DNase 01-29
Supplemental oxygen as needed-currently on 3 L/min mid flow-attempt to wean as tolerated
Aspiration precautions
Incentive spirometry encouraged
Acapella
Mucus clearing devices
DuoNebs TID + budesonide BID prn
Singulair continues
Note that the patient takes Breo as an outpatient
Chest x-ray with significant increase in pleural fluid from 01/13/2024 through 01/19/[address]24
[address] Paulson contacted interventional radiology for thoracentesis 01/20/24--1000 mL clear yellow exudative pleural fluid
Chest x-ray 01/20/2024-no pneumothorax, small to moderate residual left pleural effusion significantly decreased
Cell count: pH 7.37 - wbc 561 - glu 35 - tp 3.1 - 4123 -- exudative, likely parapneumonic; superimposed pseudoexudate from diuresis cannot be ruled out
Culture negative to date, path negative for malignancy
She also has low albumin state which may be contributing to pleural fluid buildup
Upper right extremity ultrasound 01/20/2024-no evidence for DVT
Cultures reviewed
Continue antibiotics - pt was on Zosyn (started 12/24/2023) and then changed to Meropenem on 01/13, and as of 01/15 was on Zosyn --> now changed to ceftazidime + Ampicillin per ID
Infectious disease following-correspondence reviewed
Left upper quadrant collection-IR drainage 01/13/2024 --> grew Enterococcus raffinosus + E. coli
Prior LLQ acute DAKOTA drain had dislodged and patient underwent re-insertion by IR on 01/24--> fluid grew MDR-E. coli --> pt now on Ceftazidime + Ampicillin
Continue voriconazole for her history of pulmonary aspergillosis
Follow leukocytosis
Continue diuresis as tolerated (changed from IV to PO lasix on 01/25)
Monitor renal function, electrolytes, intake/output, lower extremity edema and weight
Replace electrolytes as needed
Cardiology following-correspondence reviewed
Surgery following-correspondence reviewed --> no additional procedures needed as of 01/26, and she will be discharged with her abdominal drains that IR placed
Low residual diet per surgery
CT abdomen 01/12/2024-fluid collection left upper quadrant contains anterior air-fluid level compatible with abscess increased compared to 01/08/2024, irregular fluid collection within left pelvis and superimposed infection of this collection cannot be
excluded, pigtail catheter in posterior pelvis no evidence of collection in this area, bilateral pleural effusions left greater than right most likely atelectasis
She is on a low residue diet and seems to be tolerating it well
Intermittent CT abdomen to follow-up on collections --> less CT A/P on 01/24/2024 showing anterior left midline/LLQ small collection with trace mental stable fluid adjacent to the spleen, and free air within the peritoneum (expected post-procedure)
Neurology following due to tardive dyskinesia-correspondence reviewed
Restless legs still an issue-improved
Rotigotine patch now off
Continue amantadine and Ingrezza
DVT prophylaxis-on Lovenox
GI prophylaxis-on Protonix (she takes pantoprazole at home)
Nutrition per surgery
PT/OT --> rec'd acute rehab upon discharge
Outpatient pulmonary follow-up -she has a fire management officer as well as an ID doctor in [place], [place], she will follow-up with those specialists once she is discharged.
D/w Mrs Gonzalez and 2N RN
Data:
Chest x-ray 01/13/2024-moderate left pleural effusion which is stable and left lower lobe infiltrate concerning for pneumonia also stable
Chest ultrasound 01/11/2024-small to moderate pleural effusion, thoracentesis canceled-not enough fluid for evacuation
Chest x-ray 01/19/2024-large left pleural effusion
Chest x-ray 01/20/2024-large left pleural effusion not significantly changed, borderline pulmonary edema with cephalization
Chest x-ray 01/26/2024-Loculated moderate left pleural effusion. Mildly improved. No pneumothorax.
Chest x-ray 01/27/2024-Residual small volume left pleural fluid and left basilar atelectasis, improved as compared with prior.
Chest x-ray 01/28/2024- Left thoracostomy drains are unchanged in position; Slight improvement in left pleural opacity, consistent with improving left pleural effusion; Partial atelectasis versus pneumonia in left lower lobe. This is stable
Echo 01/19/2024: EF 50%, stage I DD, mild TR, PAP 35 to 40 mmHg, mild MS, pleural effusion present, trivial pericardial effusion. IVC is moderately dilated
Subjective Data
-
Date of Service:
Date of Service: January 30, 2024
Chief Complaint: Pulmonary Follow Up and Dyspnea Follow Up
Subjective:
No major events reported overnight
Feels better compared to previous days
Sitting in chair, in no respiratory distress
In moderately good spirits
Review of Systems
General: Fever (n), Sweats (n), Chills (n) and Satisfactory Appetite
HEENT: Epistaxis (n) and Dysphagia (n)
Cardiopulmonary: Dyspnea (n at rest), Cough (n), Chest Pain (incisional), Edema and Hemoptysis (n)
GI: Abdominal Pain (incisional), Nausea (n), Vomiting (n) and Diarrhea (n)
Neuro: Weakness
Objective Data
Data Reviewed
Vital Signs / I&O / Oxygen:
Vital Signs
Temp Pulse Resp BP Pulse Ox
98.2 F 86 16 184/95 97
01/30/24 11:53 01/30/24 13:38 01/30/24 13:38 01/30/24 11:53 01/30/24 13:38
Intake and Output
01/29/24 01/30/24 01/31/24
06:59 06:59 06:59
Intake Total 1676 / 1676 1994
Output Total 755 / 755 259 / 259
Balance 921 / 921 1736 / 1736 -5 / -5
SaO2 97
Nasal Cannula flow liters per 2
minute
Physical Exam
General: Respiratory Distress (n), Comfortable, Chills (negative) and Other (deconditioned appearance)
HEENT: Normocephalic and Anicteric
Cardiovascular: S1-S2, Regular Rhythm, Peripheral Edema (Trace edema in lower extremities bilaterally) and Calf Tenderness (n)
Respiratory: Wheeze (negative), Crackles (bases bilaterally), Rhonchi (negative), Non-Labored Respirations, Accessory Resp Muscle Use (n), Stridor (n), Chest Tube (Left lateral base (placed via IR on 01/27/2024)) and Other (Diminished BS at left
base to left middle field + dullness to percussion on L in base to left middle lung field)
GI: Soft, Distended, Tender and Other (LUQ and LLQ pigtail cath in place)
Neurology: Awake, AO x 3, No Motor Deficits and Tremors (occasional in her r-hand)
Skin: Warm, Dry, Cyanosis (n) and Jaundice (n)
Labs/Micro/Reports
Lab Data
01/30/24 08:33
01/30/24 08:33
Microbiology
01/25/24 15:56 Abscess Wound Culture - Final
Escherichia coli
Enterococcus raffinosus
01/25/24 15:56 Abscess Gram Stain - Final
01/26/24 16:12 Pleural Fluid Body Fluid Culture - Final
No Growth After 72 Hours
01/26/24 16:12 Pleural Fluid Gram Stain - Final
[2024-01-30 15:35] VITALS: BP 165/92
[2024-01-30] MEDS: SINGULAIR 10 MG PO (16:31)
[2024-01-30] MEDS: LOVENOX 40 MG SC (16:31)
[2024-01-30] MEDS: MELATONIN 5 MG PO (21:12)
--- NOTE | 2024-01-30 23:00 | PTCARENOTE ---
Preliminary US results describing an an occlusive thrombus in the patient's right arm were sent to [facility]. Patient is noted to be on Lovenox. Limb alert placed. PCT advised about new limb alert.
[2024-01-30 23:06] VITALS: BP 126/73
[2024-01-31] MEDS: UNASYN IV ×5 (00:34→23:30)
[2024-01-31] MEDS: DILAUDID 0.5 MG IV ×2 (00:36→03:36)
[2024-01-31] MEDS: FLUSH (NSS) 3 FLUSH IV (00:37)
[2024-01-31] MEDS: FLUSH (NSS) 2 FLUSH IV ×6 (03:37→17:01)
[2024-01-31 06:00] VITALS: BMI 26.4
[2024-01-31] MEDS: DUONEB 3 ML INH ×3 (07:41→19:59)
[2024-01-31 07:55] VITALS: BP 189/84
--- NOTE | 2024-01-31 08:05 | W.PN.HOSP.TC ---
Today's Communication/Plan
-
Continue IV antibiotics. Hematology eval. Chest tube care.
Assessment / Plan
Assessment / Plan
Physical exam:
General: Acute and chronically ill
HEENT: Normocephalic, Atraumatic and Moist Mucous Membranes
Respiratory: Clear to Auscultation; Negative Wheezes, Rales or Rhonchi. CT in place in the left side
Cardiac: Regular Rhythm and S1/S2
GI: Soft, postop findings, drain with active drainage, non tender and Nondistended
Musculoskeletal: No Clubbing, No Cyanosis and No Edema
Neuro: Awake, Alert and Oriented
Psych: Calm
A/P:
Sigmoid diverticulitis with abscess:
-h/o diverticulosis/diverticulitis
-s/p abscess drainage 12/25/23 by IR. E. coli resistant to Zosyn from 01/24 and also Enterococcus. E. coli pansensitive and Enterococcus Raffinosus on 01/12 wound cultures. Pleural fluid cultures pending but no growth.
-with findings of massively distended right colon including the cecum on CT scan of the abdomen pelvis on January 03, 2024 the patient was taken to the OR for Exploratory laparotomy, takedown splenic flexure, creation end colostomy, omentectomy
-Continue antibiotics, IV ampicillin and Fortaz based on sensitivities on 01/26.
-Status post abdominal drains on 01/12 and 01/24.
-Follow-up repeat blood cultures for recurrent fevers since 01/12 but so far no growth but initial wound cultures growing E. coli and Enterococcus Raffinosus
- Rpt CT A/P from 01/23 noted -cw drain per surgery/IR
-Surgery following
-Low residue diet per surgery
Left Pleural effusion, complicated loculated effusion(suspicion for culture-negative empyema):
Status post chest tube on 01/26
Plan to do tPA plus dornase per pulm.
Pleural fluid cultures pending but no growth.
Pulmonary following
Prior to today:
Left pleural effusion s/p thoracentesis 01/25 (exudative)
Acute hypoxic respiratory insufficiency:
Now off of high flow oxygen for increased PEEP--> now down to 2-3 L of oxygen. Wean as tolerated.
Continue to titrate oxygen as able.
Pulmonary following-on oxygen and chest tube in place
Cardiology signed off-on oral diuresis
Continue incentive spirometry
Continue Acapella
Continue bronchodilators
Aspiration precautions
Leukocytosis:
WBC 12.2 yesterday and pending today
Afebrile
Continue current antibiotics per ID
Continue to trend.
Abnormal EKG-patient now has poor R waves in the anterior leads and also T wave inversion. Echo also showed low normal EF of 50%. Appreciate cardiology input.
Dyskinetic movements/Restless Legs:
-Psychiatry and neurology have decided to start her on Ingrezza. Seems to be working well. Pt feeling improved from her movements standpoint. She also has been placed on Ativan per psychiatry.
-Also started on amantadine.
-Stopped Requip and Neupro patch
-Started melatonin
-Remains on trazodone 100 mg as needed, Flexeril as needed, Dilaudid as needed; psych discussed with outpatient psychiatrist who felt she did not have manic episode but patient decided to continue Depakote. Depakote now discontinued .
-Seroquel stopped as Vfend increases serum concentration of Seroquel.
-Avoid antidopaminergic agents as much as possible
Thrombosis left upper extremity:
We repeated ultrasound last evening. I will request that hematology consultation for further evaluation and advise as per patient request.
Superficial thrombosis in the left basilic vein (no DVT)
On Lovenox 40 mg daily for prevention DVT and will be enough for above plus local care.
PICC dced 01/19
Acute blood loss anemia:
-Aim to keep H&H more than 7. Follow blood work. Hemoglobin 8.7 yesterday, pending today
-s/p 4U pRBCs
Hyponatremia -sodium 127 yesterday, pending today. Pt was volume overloaded .Improving. Continue to follow
Other problems:
h/o pulmonary Aspergillus: since Apr 2023. cont Vfend.
Hyperkalemia, resolved
HLD
GERD: cont PPI
Anxiety/depression: Continue Trazodone PRN/Prozac/Depakote. Seroquel stopped by psych.
FULL/Lovenox
CW PT/OT eval/tx
Time spent 50 minutes.
Anticipated Discharge: > 48 hours
Subjective/Interval History
-
Date of Service: January 31, 2024
Patient concerned about her right arm swelling. No chest pain or shortness of breath. Chest tube in place. No worsening abdominal pain. No nausea or vomiting. Afebrile
Objective Data
-
Labs:
Laboratory Results
01/31/24
06:00
WBC Pending
Hgb Pending
Hct Pending
Plt Count Pending
Sodium Pending
Potassium Pending
Chloride Pending
Carbon Dioxide Pending
BUN Pending
Creatinine Pending
Glucose Pending
Calcium Pending
Vital Signs:
Vital Signs
Temp Pulse Resp BP Pulse Ox
99.0 F 76 16 126/73 96
01/30/24 23:06 01/31/24 07:44 01/31/24 07:44 01/30/24 23:06 01/31/24 07:44
I&O
01/30/24 01/31/24 02/01/24
06:59 06:59 06:59
Intake Total 1994 2775 / 2775
Output Total 259 / 259 3640 / 3640
Balance 1736 / 1736 -865 / -865
[2024-01-31] MEDS: NSS (PRESERVATIVE FREE) 10 ML IV (10:04)
[2024-01-31] MEDS: KCL 40 MEQ PO (10:04)
[2024-01-31] MEDS: LASIX 40 MG PO ×2 (10:04→17:00)
[2024-01-31] MEDS: FOLVITE 1 MG PO (10:04)
[2024-01-31] MEDS: PROTONIX IV 40 MG IV (10:04)
[2024-01-31] MEDS: SYMMETREL 100 MG PO ×2 (10:04→21:53)
[2024-01-31] MEDS: NON-FORMULARY ITEM 1 UNIT PO (10:05)
[2024-01-31] MEDS: PROZAC 20 MG PO (10:05)
[2024-01-31] MEDS: VFEND 200 MG PO ×2 (10:05→21:53)
[2024-01-31] MEDS: VITAMIN D3 (cholecalciferol) 25 MCG PO (10:05)
[2024-01-31] MEDS: ATIVAN 0.5 MG PO (10:37)
[2024-01-31] MEDS: TESSALON PERLES 100 MG PO ×2 (10:37→23:31)
[2024-01-31] MEDS: TYLENOL 1000 MG PO (10:37)
[2024-01-31] MEDS: ZOFRAN 4 MG IV ×2 (10:54→23:31)
--- NOTE | 2024-01-31 11:35 | W.PN.UPDATE ---
Update Note
Progress Note Update
Psychiatry follow up. Patient she is managing but feeling anxious. She states bilateral hand tremors are still there with no worsening. Notes some improvement over the past couple days. Admits ativan PRN helps reduce them. Pain is manageable. She
was able to sleep last night. She is having more visitors today which she looks forward to. She states she is staying optimistic and hopeful to get chest tube out soon.
Current medications:
melatonin 5mg HS, Ingrezza 40mg daily, amantadine 100mg BID, Prozac 20mg daily, trazodone 100mg PRN insomnia, Ativan 0.5mg q12 hours PRN anxiety
MSE- good eye contact. fluent speech. Logical and goal directed. anxious mood/affect, Denies SI/HI/AVH. Fair I/J. b/l hand tremor
Plan- continue current regimen and monitoring. Requesting PRN Ativan now.
--- NOTE | 2024-01-31 12:16 | W.PN.GS2 ---
Addendum entered and electronically signed by Deion Roman MD 01/31/24 12:52:
I saw and examined the patient.
The PEACH GROWER's note was reviewed and I agree with the note.
�Continue current management from surgical standpoint
Original Note:
Today's Communication / Plan
-
Local wound care
Continue drains
Assessment / Plan
-
Assessment: 53 yo female with recent aspergillus pneumonia on home O2 and on recent steroids presenting with complicated diverticulitis with large pelvic abscess, failed initial nonoperative management now status post Garcia's procedure.
12/25/2023 s/p IR drainage of abscess cx with 2 strep species and 2 species of e.coli noted
01/03/2024 s/p exploratory laparotomy with takedown of splenic flexure, creation end colostomy with omentectomy
01/13/2024 s/p IR drain post op perisplenic fluid collection 01/14/24 cx with enterococcus/e. coli.
Off TPN since 01/12, on LRD
01/24/2024 Left lower quadrant DAKOTA that was previously draining pus dislodged. CT repeated with recurrent pleural effusion and fluid collection to the left mid/lower abd. No extravasation of contrast from the rectal stump.
01/27/[address] chest tube place with TPA tx
AFVSS
Stable from surgical standpoint
abd JPs unchanged - not much outputs but still ?purulence noted.
Plan:
Continue local wound care
low residue diet and encourage PO intake/supplements; okay for family to bring in food/supplements from home.
Pain control as needed
Continue abx per ID recs
Ostomy teaching
PT/OT following, ?acute rehab upon discharge
Continue drains to bulb suction, Flush drains daily.
Daily dressing changes to midline incision, dry gauze packing to open area in middle of wound
DVT: SCDs as tolerated. Lovenox sq
Subjective Data
-
Date of Service: January 31, 2024
Patient seen and examined at bedside with Dr. Roman. Denies n/v. Passing flatus/stools through ostomy. No pain to abdomen.
Objective Data
-
Intake and Output
01/30/24 01/31/24 02/01/24
06:59 06:59 06:59
Intake Total 1994 2775 / 2775
Output Total 259 / 259 3640 / 3640
Balance 1736 / 1736 -865 / -865
Intake:
Oral fluids 1740 / 1740 2320 / 2320
IV piggybacks 240 / 240 440 / 440
Amount instilled into Drain (
Total)
Left Lower Abdomen B 10 / 10 10 / 10
Left Upper Abdomen Placed in IR 5
Output:
Liquid stool amount 100 / 100
Colostomy 100 / 100
CT Output (Total) 250 / 250 320 / 320
Left Lateral A 250 / 250 320 / 320
Drain Output (Total)
Left Lower Abdomen B 0 / 0
Left Upper Abdomen Placed in IR
Urine, Voided 3200 / 3200
Other:
Number of approximated MODERATE 4
amounts of urine
Number of approximated LARGE 1
amounts of urine
How many times incontinent 1
SMALL amount urine
Vital Signs
Temp Pulse Resp BP Pulse Ox
98.3 F 90 14 189/84 92
01/31/24 07:55 01/31/24 07:55 01/31/24 07:55 01/31/24 07:55 01/31/24 07:55
Lab Results
01/31/24 06:00
01/31/24 06:00
Calcium Cancelled 01/31/24 06:00
Phosphorus 3.8 mg/dl (2.5-4.5) 01/25/24 05:01
Magnesium 1.7 mg/dl (1.6-2.3) 01/27/24 08:25
Total Bilirubin 1.0 mg/dl (0.2-1.3) 01/27/24 08:25
AST 60 U/L (14-36) H 01/27/24 08:25
ALT 30 U/L (0-35) 01/27/24 08:25
Alkaline Phosphatase 261 U/L (38-126) H 01/27/24 08:25
Total Protein 5.7 g/dl (6.3-8.2) L 01/27/24 08:25
Albumin 2.7 g/dl (3.5-5.0) L 01/27/24 08:25
Physical Exam
-
NAD AAOx3
ABD: soft, midline incision with open area to middle of incision granulating well with ss drainage, otherwise well approximated
DAKOTA #1 purulent SSF DAKOTA #2 cloudy serous fluid
left sided ostomy with pink, viable stoma: productive of stool/flatus
--- NOTE | 2024-01-31 13:17 | W.PN.PUL3 ---
Today's Communication / Plan
-
L chest tube to wall suctioning
Monitor L chest output
CXR AM
Assessment
-
53-year-old female with past medical history of recurrent diverticulitis, pulmonary aspergillosis, hyperlipidemia, anxiety/depression, and GERD who presents with abdominal pain. She apparently was recently treated for diverticulitis in October 2023
with Augmentin at [facility] in [place] where she resides. She also reported that she was treated this month for ongoing fungal lung infection with Aspergillus and also given additional antibiotics but unknown what names of these
medications are. She developed a fever about 5 days ago and continues to be on Augmentin for last 3 days. She was visiting her mother in [place] prior to arrival when the pain in her left lower quadrant became severe so she came here to the
hospital for further care. She was afebrile in the ER to 98.6 �F, 79 pulse rate, breathing at 16 breaths/min, normotensive at 133/77 and saturating 100% on room air. Labs showed leukocytosis to 21.2, mild anemia to 11.5, mild hyponatremia to 134,
mild hyperkalemia to 5.6, and negative lipase of <10. CT A/P on admission showed severe sigmoid diverticulitis with large pericolonic abscess. She was given pain medications in the ER + Levaquin + IV fluids with NS x1L, and admitted to the
hospitalist service with general surgery consulted and antibiotics were started with Zosyn. She underwent IR CT-guided drainage on 12/24 with 170 cc of pale green purulent material seen - this later grew E. coli and group F Streptococcus. Patient
continues to be managed on the floor and was having issues with constipation. Repeat CT A/P performed on 01/02 showing decrease size in the abscess with pigtail drainage catheter seen in place, with massively distended right colon including the
cecum with stool distention and continued suspected distal descending colon/sigmoid diverticulitis. Given patient's worsening pain with distention and no flatus or BM in about 4 days, patient underwent exploratory laparotomy with splenic flexure
takedown, creation of end colostomy and omentectomy on 01/03/2024, and transferred to the ICU postoperatively. There was 150 cc of EBL and no immediate complications. Patient was stabilized and sent to the floor and pulmonary was reconsulted
01/12/2024 with ongoing hypoxemia.
Impression:
#Sigmoid diverticulitis s/p exploratory laparotomy with splenic flexure takedown, end colostomy creation and omentectomy � OR date: 01/12/2024
#Sigmoid diverticulitis c/b large pericolonic abscess s/p IR CT-guided drainage on 12/24 with purulent fluid growing E. coli + group F Streptococcus
#Constipation
#Leukocytosis
#Chronic anemia (unknown baseline but she has been between 8.5�11.5g/dL since admission)
#Lower lobe pulmonary bronchiectasis � likely due to her history of chronic pulmonary aspergillosis diagnosed in fall 2022
#History of pulmonary aspergillosis on voriconazole
#Left-sided pleural effusion status post thoracentesis on 01/20/2024 (exudative fluid with low glucose of 35) + repeat thoracentesis on 01/25 (also low glucose <30) suspicious for complicated effusion (either direct extension from abdomen vs
parapneumonic effusion) now s/p chest tube placed 01/27/2024 by IR
RUE SVT distal R cephalic v
Plan:
Respiratory status improved after thoracentesis 01/20/2024 --> she everton- accumulation of left-sided pleural fluid and underwent repeat thoracentesis on 01/25 with low glucose and PMN predominant --> US during thora shows highly loculated effusion-->
chest tube placed on 01/27/2024 via IR with tPA + dornase BID x 3 days --> for 4th and 5th doses of 6 on 01-[address] s/c 01-28: decreasing small L PF, chest tube at target location
CXR 01-29: portable, residual L PF, L base pigtail cath in place, no free air. LLQ pigtail cath
6th dose tPA/DNase 01-29
Since after 5 PM 01-29 after unclamping left chest tube post last dose of lysis, the patient has produced a total of 330 mL of serosanguineous fluid as of 6:30 PM 01-30 (new L pleur-evac installed today, 130 mL level marked)
CXR 01-30: improved small L basilar PF collection, pigtail cath in place
CXR 01-31 PA/lat ordered
Can remove L chest tube once producing about 100 mL per day for 2-3 consecutive days
Supplemental oxygen as needed-currently on 3 L/min mid flow-attempt to wean as tolerated
Aspiration precautions
Incentive spirometry encouraged
Acapella
Mucus clearing devices
DuoNebs TID + budesonide BID prn
Singulair continues
Note that the patient takes Breo as an outpatient
Chest x-ray with significant increase in pleural fluid from 01/13/2024 through 01/19/[address]24
[address] Paulson contacted interventional radiology for thoracentesis 01/20/24--1000 mL clear yellow exudative pleural fluid
Chest x-ray 01/20/2024-no pneumothorax, small to moderate residual left pleural effusion significantly decreased
Cell count: pH 7.37 - wbc 561 - glu 35 - tp 3.1 - 4123 -- exudative, likely parapneumonic; superimposed pseudoexudate from diuresis cannot be ruled out
Culture negative to date, path negative for malignancy
She also has low albumin state which may be contributing to pleural fluid buildup
Upper right extremity ultrasound 01/20/2024-no evidence for DVT
RUE doppler 01-29: new SVT at distal R cephalic, c/w negative test 01-19
No indication for AC but should follow, ordered f/u RUE doppler 02-01
Cultures reviewed
Continue antibiotics - pt was on Zosyn (started 12/24/2023) and then changed to Meropenem on 01/13, and as of 01/15 was on Zosyn --> now changed to ceftazidime + Ampicillin per ID
Infectious disease following-correspondence reviewed
Left upper quadrant collection-IR drainage 01/13/2024 --> grew Enterococcus raffinosus + E. coli
Prior LLQ acute DAKOTA drain had dislodged and patient underwent re-insertion by IR on 01/24--> fluid grew MDR-E. coli --> pt now on Ceftazidime + Ampicillin
Continue voriconazole for her history of pulmonary aspergillosis
Follow leukocytosis
Continue diuresis as tolerated (changed from IV to PO lasix on 01/25)
Monitor renal function, electrolytes, intake/output, lower extremity edema and weight
Replace electrolytes as needed
Cardiology following-correspondence reviewed
Surgery following-correspondence reviewed --> no additional procedures needed as of 01/26, and she will be discharged with her abdominal drains that IR placed
Low residual diet per surgery
CT abdomen 01/12/2024-fluid collection left upper quadrant contains anterior air-fluid level compatible with abscess increased compared to 01/08/2024, irregular fluid collection within left pelvis and superimposed infection of this collection cannot be
excluded, pigtail catheter in posterior pelvis no evidence of collection in this area, bilateral pleural effusions left greater than right most likely atelectasis
She is on a low residue diet and seems to be tolerating it well
Intermittent CT abdomen to follow-up on collections --> less CT A/P on 01/24/2024 showing anterior left midline/LLQ small collection with trace mental stable fluid adjacent to the spleen, and free air within the peritoneum (expected post-procedure)
Neurology following due to tardive dyskinesia-correspondence reviewed
Restless legs still an issue-improved
Rotigotine patch now off
Continue amantadine and Ingrezza
DVT prophylaxis-on Lovenox
GI prophylaxis-on Protonix (she takes pantoprazole at home)
Nutrition per surgery
PT/OT --> rec'd acute rehab upon discharge
Outpatient pulmonary follow-up -she has a library cataloging technician as well as an ID doctor in [place], [place], she will follow-up with those specialists once she is discharged.
D/w Mrs Gonzalez and 2N RN
Data:
Chest x-ray 01/13/2024-moderate left pleural effusion which is stable and left lower lobe infiltrate concerning for pneumonia also stable
Chest ultrasound 01/11/2024-small to moderate pleural effusion, thoracentesis canceled-not enough fluid for evacuation
Chest x-ray 01/19/2024-large left pleural effusion
Chest x-ray 01/20/2024-large left pleural effusion not significantly changed, borderline pulmonary edema with cephalization
Chest x-ray 01/26/2024-Loculated moderate left pleural effusion. Mildly improved. No pneumothorax.
Chest x-ray 01/27/2024-Residual small volume left pleural fluid and left basilar atelectasis, improved as compared with prior.
Chest x-ray 01/28/2024- Left thoracostomy drains are unchanged in position; Slight improvement in left pleural opacity, consistent with improving left pleural effusion; Partial atelectasis versus pneumonia in left lower lobe. This is stable
Echo 01/19/2024: EF 50%, stage I DD, mild TR, PAP 35 to 40 mmHg, mild UT, pleural effusion present, trivial pericardial effusion. IVC is moderately dilated
Subjective Data
-
Date of Service:
Date of Service: January 31, 2024
Chief Complaint: Pulmonary Follow Up and Dyspnea Follow Up
Subjective:
Received 01/13 dose of pleural lysis yesterday
Since after 5 PM yesterday after unclamping left chest tube post last dose of lysis, the patient has produced a total of 330 mL of serosanguineous fluid as of 6:30 PM today
Review of Systems
General: Fever (n), Sweats (n), Chills (n) and Satisfactory Appetite (n)
Cardiopulmonary: Dyspnea (n), Cough, Wheezing and Chest Pain (incisional)
GI: Abdominal Pain (incisional), Nausea (n) and Vomiting (n)
Neuro: Weakness
Objective Data
Data Reviewed
Vital Signs / I&O / Oxygen:
Vital Signs
Temp Pulse Resp BP Pulse Ox
98.3 F 90 14 189/84 92
01/31/24 07:55 01/31/24 07:55 01/31/24 07:55 01/31/24 07:55 01/31/24 07:55
Intake and Output
01/30/24 01/31/24 02/01/24
06:59 06:59 06:59
Intake Total 1994 2775 / 2775
Output Total 259 / 259 3640 / 3640
Balance 1736 / 1736 -865 / -865
SaO2 92
Nasal Cannula flow liters per 2
minute
Physical Exam
General: Respiratory Distress (n), Comfortable, Chills (negative) and Other (deconditioned appearance)
HEENT: Normocephalic and Anicteric
Cardiovascular: S1-S2, Regular Rhythm, Peripheral Edema (Trace edema in lower extremities bilaterally) and Calf Tenderness (n)
Respiratory: Wheeze (negative), Crackles (bases bilaterally), Rhonchi (negative), Non-Labored Respirations, Accessory Resp Muscle Use (n), Stridor (n), Chest Tube (Left lateral base (placed via IR on 01/27/2024)) and Other (Diminished BS at left
base to left middle field + dullness to percussion on L in base to left middle lung field)
GI: Soft, Distended, Tender and Other (LUQ and LLQ pigtail cath in place)
Neurology: Awake, AO x 3, No Motor Deficits and Tremors (occasional in her r-hand)
Skin: Warm, Dry, Cyanosis (n) and Jaundice (n)
Labs/Micro/Reports
Lab Data
01/31/24 06:00
01/31/24 06:00
Microbiology
01/25/24 15:56 Abscess Wound Culture - Final
Escherichia coli
Enterococcus raffinosus
01/25/24 15:56 Abscess Gram Stain - Final
01/26/24 16:12 Pleural Fluid Body Fluid Culture - Final
No Growth After 72 Hours
01/26/24 16:12 Pleural Fluid Gram Stain - Final
[2024-01-31] MEDS: STERILE WATER FOR INJECTION 20 ML IV (14:02)
[2024-01-31] MEDS: ROCEPHIN 2000 MG IV (14:02)
[2024-01-31] MEDS: ROXICODONE 5 MG PO (14:28)
[2024-01-31 15:35] VITALS: BP 181/80
[2024-01-31] MEDS: LOVENOX 40 MG SC (17:00)
[2024-01-31] MEDS: SINGULAIR 10 MG PO (17:36)
[2024-01-31] MEDS: MELATONIN 5 MG PO (21:53)
--- NOTE | 2024-01-31 22:09 | CON.ONC ---
Impression
Impression
Limited superficial thrombosis of RUE cephalic vein
Plan
Plan
Given minimal symptoms and lack of deep vein involvement would reimage if symptoms do not claudio with local therapies-- warm compresses/ NSAIDs if feasible of @ least 1 weeks duration.
Patient History
History of Present Illness
unfortunate 53yo hospitalized since 12/24/2023 with complications related to diverticular abscess for whom we are asked to comment onthe developement of a superficail cephalic vein thrombosis associated with localized edema for which US of the RUE
extremity 01/30/2024 compared to normal study 01/20/2024 noted 'occlusive thrombus in the cephalic vein of the distal upper arm extending to the level of the antecubital fossa. This measures approximately 2-3 cm in length. The right internal jugular,
subclavian, axillary, brachial, and basilic veins are patent.' She denies any venous thrombotic events in the past NOR CLEAR FH OF VENOUS THROMBOTIC EVENTS-- (brother had PFO with arterial embolism to leg).
Past-Medical/Surgical History
Rectosigmoid Diverticulitis with Complicated Abscess
Hyperkalemia
Aspergillosis
Recent Pneumonia
QT Prolongation
GERD
Anxiety / Depression
Patient Medication
�Medication �Instructions �Recorded �Confirmed �Last Taken �Type
acetaminophen 500 mg tablet 1,000 mg PO Q6H PRN mild pain/fever 12/24/23 12/24/23 Unknown History
albuterol sulfate 90 mcg/actuation 2 puff inhalation R Q4 PRN 12/24/23 12/24/23 Unknown History
aerosol inhaler sob/wheezing
aspirin 81 mg tablet,delayed 81 mg PO DAILY Blood Clot 12/24/23 12/24/23 3 Days Ago History
release Prevention/Tx ~12/21/23
benzonatate 100 mg capsule 100 mg PO TID PRN cough 12/24/23 12/24/23 Unknown History
cholecalciferol (vitamin D3) 25 25 mcg PO DAILY Supplement 12/24/23 12/24/23 12/24/23 History
mcg (1,000 unit) tablet (Vitamin
D3)
fluoxetine 40 mg capsule (Prozac) 40 mg PO DAILY Mental 12/24/23 12/24/23 12/24/23 History
Health/Anxiety
fluticasone furoate 200 1 inh inhalation R DAILY 12/24/23 12/24/23 12/24/23 History
mcg-vilanterol 25 mcg/dose Lung/Breathing Issues
inhalation powder (Breo Ellipta)
ibuprofen 200 mg capsule 200 mg PO Q6H PRN mild pain/fever 12/24/23 12/24/23 12/23/23 History
ipratropium 0.5 mg-albuterol 3 mg 3 ml inhalation R TID 12/24/23 12/24/23 12/24/23 History
(2.5 mg base)/3 mL nebulization Lung/Breathing Issues
soln
melatonin 3 mg tablet 3 mg PO HS PRN sleep 12/24/23 12/24/23 Unknown History
montelukast 10 mg tablet 10 mg PO QPM ASTHMA 12/24/23 12/24/23 12/23/23 History
pantoprazole 40 mg tablet,delayed 40 mg PO DAILY Gastrointestinal 12/24/23 12/24/23 12/24/23 History
release Issue
quetiapine 50 mg tablet (Seroquel) 50 mg PO BID Mental Health/Anxiety 12/24/23 12/24/23 12/24/23 History
trazodone 100 mg tablet 200 mg PO HS Mental Health/Anxiety 12/24/23 12/24/23 12/23/23 History
voriconazole 200 mg tablet 200 mg PO Q12H Infection 12/24/23 12/24/23 12/24/23 History
cefdinir 300 mg capsule 300 mg PO BID #28 caps 12/31/23 Unknown Rx
divalproex 500 mg tablet,extended 500 mg PO HS #30 tabs 12/31/23 Unknown Rx
release 24 hr
docusate sodium 100 mg capsule 100 mg PO BID #0 caps 12/31/23 Unknown Rx
metronidazole 500 mg tablet 500 mg PO TID #42 tabs 12/31/23 Unknown Rx
polyethylene glycol 3350 17 gram 17 g PO DAILY #0 ea 12/31/23 Unknown Rx
oral powder packet (HealthyLax)
sodium chloride 0.9 % (flush) 5 ml intra-catheter DAILY #2,500 mL 12/31/23 Unknown Rx
(Normal Saline Flush 0.9 %
injection syringe)
hydrocodone 5 mg-acetaminophen 325 1 tab PO Q8H PRN severe pain only 01/01/24 Unknown Rx
mg tablet #20 tabs
budesonide 0.5 mg/2 mL suspension 0.5 mg inhalation BIDPRN PRN sob 01/05/24 01/05/24 Unknown History
for nebulization
Active Medications
Generic Name Dose Route Start Last Admin
Trade Name Freq PRN Reason Stop Dose Admin
Acetaminophen 1,000 mg 01/07/24 11:23 01/31/24 10:37
Acetaminophen 500 Mg Tablet PO 02/04/24 11:22 1,000 mg
Q6HPRN PRN Administration
mild pain
Albuterol/Ipratropium 3 ml 01/05/24 14:00 01/31/24 19:59
Ipratropium 0.5/Albuterol 3 Mg (3 Ml Ampul) INH 3 ml
R TID CORY Administration
Protocol
Albuterol/Ipratropium 3 ml 01/14/24 12:34
Ipratropium 0.5/Albuterol 3 Mg (3 Ml Ampul) INH
R Q4HPRN PRN
SOB
Protocol
Amantadine HCl 100 mg 01/15/24 20:00 01/31/24 21:53
Amantadine 100 Mg Capsule PO 02/12/24 19:59 100 mg
BID CORY Administration
Benzonatate 100 mg 01/19/24 09:42 01/31/24 10:37
Benzonatate 100 Mg Capsule PO 02/16/24 09:41 100 mg
TIDPRN PRN Administration
cough
Ceftriaxone Sodium 2,000 mg 01/29/24 12:00 01/31/24 14:02
Ceftriaxone 2,000 Mg/20 Ml Vial IV 2,000 mg
Q24H CORY Administration
Cholecalciferol 25 mcg 01/20/24 08:00 01/31/24 10:05
Cholecalciferol (Vitamin D3) 25 Mcg Tablet (1,000 Units) PO 02/17/24 07:59 25 mcg
DAILY CORY Administration
Enoxaparin Sodium 40 mg 01/09/24 18:00 01/31/24 17:00
Enoxaparin Sodium 40 Mg/0.4 Ml Syringe SC 02/06/24 17:59 40 mg
QPM CORY Administration
Fluoxetine HCl 20 mg 01/20/24 08:00 01/31/24 10:05
Fluoxetine 20 Mg Capsule PO 02/17/24 07:59 20 mg
DAILY CORY Administration
Folic Acid 1 mg 01/19/24 10:00 01/31/24 10:04
Folic Acid 1 Mg Tablet PO 02/16/24 09:59 1 mg
DAILY CORY Administration
Furosemide 40 mg 01/26/24 08:00 01/31/24 17:00
Furosemide 40 Mg Tablet PO 02/23/24 07:59 40 mg
BID AT 0800,1600 CORY Administration
Hydromorphone HCl 0.5 mg 01/17/24 12:04 01/31/24 03:36
Hydromorphone 0.5 Mg/0.5 Ml Syringe IV 02/12/24 12:03 0.5 mg
Q3HPRN PRN Administration
severe pain
Ampicillin Sodium/Sulbactam 120 mls @ 240 mls/hr 01/29/24 16:00 01/31/24 17:00
Sodium 3 gm/ Sodium Chloride IV 120 mls
Q6H CORY Administration
Lorazepam 0.5 mg 01/29/24 12:00 01/31/24 10:37
Lorazepam 0.5 Mg Tablet PO 02/26/24 11:59 0.5 mg
[id number] PRN Administration
anxiety
Melatonin 5 mg 01/14/24 22:00 01/31/24 21:53
Melatonin 5 Mg Tablet PO 02/11/24 21:59 5 mg
HS CORY Administration
Montelukast Sodium 10 mg 12/25/23 18:00 01/31/24 17:36
Montelukast Sodium 10 Mg Tablet PO 02/19/24 17:59 10 mg
QPM CORY Administration
Valbenazine [ 0 unit 01/14/24 15:00 01/31/24 10:05
Ingrezza] 40mg PO 02/11/24 14:59 1 unit
Capsule - 1 Capsule DAILY CORY Administration
(40mg) Po Daily
Ondansetron HCl 4 mg 01/19/24 09:41 01/31/24 10:54
Ondansetron 4 Mg/2 Ml Vial IV 02/16/24 09:40 4 mg
Q6HPRN PRN Administration
NAUSEA/VOMITING
Oxycodone HCl 5 mg 01/16/24 11:54 01/31/24 14:28
Oxycodone 5 Mg Regular Release Tablet PO 02/12/24 11:53 5 mg
Q4HPRN PRN Administration
moderate pain
Pantoprazole Sodium 40 mg 01/20/24 08:00 01/31/24 10:04
Pantoprazole Sodium 40 Mg/10 Ml Vial IV 02/17/24 07:59 40 mg
DAILY CORY Administration
Potassium Chloride 40 meq 01/22/24 14:34 01/31/24 10:04
Potassium Chloride 20 Meq Extended Release Tablet PO 02/18/24 07:59 40 meq
DAILY CORY Administration
Sodium Chloride 0 flush 12/24/23 22:00 01/31/24 17:01
Sodium Chloride 0.9% (Flush) Syringe IV 02/09/24 21:59 2 flush
PER PROTOCOL CORY Administration
Sodium Chloride 10 ml 01/20/24 08:00 01/31/24 10:04
Sodium Chloride 0.9% (Preservative Free) 10 Ml Vial IV 02/17/24 07:59 10 ml
DAILY CORY Administration
Sterile Water 20 ml 01/29/24 12:00 01/31/24 14:02
Sterile Water For Injection 20 Ml Vial IV 02/26/24 11:59 20 ml
Q24H CORY Administration
Trazodone HCl 100 mg 01/07/24 13:54 01/28/24 21:15
Trazodone 100 Mg Tablet PO 02/04/24 13:53 100 mg
HSPRN PRN Administration
sleep
Voriconazole 200 mg 12/24/23 22:00 01/31/24 21:53
Voriconazole 200 Mg Tablet PO 02/24/24 21:59 200 mg
Q12H CORY Administration
Review of Systems
-
History Source: Patient
All Other Systems: Reviewed and Negative
Physical Exam
-
General: Comfortable
HEENT: Moist Mucous Membranes
Cardiology: Normal Sinus Rhythm
Pulmonary: Clear
GI: Soft
Musculoskeletal: No Clubbing, No Cyanosis and No Edema
Extremities: Other (RUE cephalic vein palpable--minimally tender)
Labs
Lab Results
WBC Cancelled 01/31/24 06:00
RBC Cancelled 01/31/24 06:00
Hgb Cancelled 01/31/24 06:00
Hct Cancelled 01/31/24 06:00
MCV Cancelled 01/31/24 06:00
MCH Cancelled 01/31/24 06:00
MCHC Cancelled 01/31/24 06:00
RDW Cancelled 01/31/24 06:00
Plt Count Cancelled 01/31/24 06:00
MPV Cancelled 01/31/24 06:00
Abs Immat Gran (auto) Cancelled 01/31/24 06:00
Absolute Neuts (auto) Cancelled 01/31/24 06:00
Absolute Lymphs (auto) Cancelled 01/31/24 06:00
Absolute Monos (auto) Cancelled 01/31/24 06:00
Absolute Eos (auto) Cancelled 01/31/24 06:00
Absolute Basos (auto) Cancelled 01/31/24 06:00
Immature Gran % Cancelled 01/31/24 06:00
Neutrophils % Cancelled 01/31/24 06:00
Lymphocytes % Cancelled 01/31/24 06:00
Monocytes % Cancelled 01/31/24 06:00
Eosinophils % Cancelled 01/31/24 06:00
Basophils % Cancelled 01/31/24 06:00
Creatinine Cancelled 01/31/24 06:00
Vital Signs
Vital Signs
Temp Pulse Resp BP Pulse Ox
98.1 F 88 20 181/80 99
01/31/24 15:35 01/31/24 20:01 01/31/24 20:01 01/31/24 15:35 01/31/24 20:01
[2024-01-31 23:20] VITALS: BP 185/82
[2024-02-01] MEDS: ROXICODONE 5 MG PO ×4 (00:44→21:26)
[2024-02-01] MEDS: TYLENOL 1000 MG PO ×3 (04:03→16:57)
[2024-02-01] MEDS: UNASYN IV ×4 (04:50→21:29)
[2024-02-01 06:00] VITALS: BMI 25.5
[2024-02-01 06:56] LABS: % Basophils 1.3 % (0-2); % Eosinophils 6.4 % (0-6); % Immature Granulocytes 0.7 % (0-0.5); % Lymphocytes 15.6 % (20.5-51.1); % Monocytes 7.2 % (1.7-9.3); % Neutrophils 68.8 % (42.2-75.2); Absolute Basophils 0.1 10^3/uL (0-0.2); Absolute Eosinophils 0.6 10^3/uL (0-0.7); Absolute Immature Granulocytes 0.1 10^3/uL (0-0.05); Absolute Lymphocytes 1.5 10^3/uL (1.2-3.4); Absolute Monocytes 0.7 10^3/uL (0.1-0.6); Absolute Neutrophils 6.7 10^3/uL (1.4-6.5); Hematocrit 24.6 % (37.0-47.0); Hemoglobin 8.1 g/dL (12.0-16.0); Mean Corp Hgb Conc. 32.9 g/dL (33.0-37.0); Mean Corpuscular Hgb 29.3 pg (27.0-31.0); Mean Corpuscular Volume 89.1 fL (81.0-99.0); Mean Platelet Volume 8.7 fL (7.4-10.4); Nucleated Red Blood Cells % 0 %; Platelet Count 443 10^3/uL (130-400); Red Blood Cell Count 2.76 10^6/uL (4.20-5.40); Red Cell Dist. Width 19.1 % (11.5-14.5); White Blood Cell Count 9.7 10^3/uL (4.8-10.8)
[2024-02-01 07:12] LABS: ALT (SGPT) 36 U/L (0-35); AST (SGOT) 97 U/L (14-36); Albumin 2.4 g/dl (3.5-5.0); Alkaline Phosphatase 382 U/L (38-126); Blood Urea Nitrogen 5 mg/dl (7-17); Calcium 8.3 mg/dl (8.4-10.2); Carbon Dioxide 30 mmol/L (22-30); Chloride 95 mmol/L (98-107); Estimated Creatinine Clearance 109 ml/min; Glucose 81 mg/dl (70-99); Potassium 3.7 mmol/L (3.5-5.1); Sodium 131 mmol/L (135-145); Total Bilirubin 0.6 mg/dl (0.2-1.3); Total Protein 5.1 g/dl (6.3-8.2); eGFR > 60.00
[2024-02-01 07:45] VITALS: BP 181/78
[2024-02-01] MEDS: DUONEB 3 ML INH (08:20)
[2024-02-01] MEDS: KCL 40 MEQ PO (09:18)
[2024-02-01] MEDS: VITAMIN D3 (cholecalciferol) 25 MCG PO (09:19)
[2024-02-01] MEDS: FOLVITE 1 MG PO (09:19)
[2024-02-01] MEDS: LASIX 40 MG PO ×2 (09:19→16:57)
[2024-02-01] MEDS: SYMMETREL 100 MG PO ×2 (09:19→20:33)
[2024-02-01] MEDS: NSS (PRESERVATIVE FREE) 10 ML IV (09:21)
[2024-02-01] MEDS: PROTONIX IV 40 MG IV (09:21)
[2024-02-01] MEDS: NON-FORMULARY ITEM 1 UNIT PO (09:22)
[2024-02-01] MEDS: PROZAC 20 MG PO (09:22)
[2024-02-01] MEDS: VFEND 200 MG PO ×2 (09:25→21:27)
--- NOTE | 2024-02-01 10:24 | W.PN.ID1 ---
Date of Service
Date of Service: February 01, 2024
Today's Communication
Continue ampicillin/sulbactam and ceftriaxone.
At time if discharge, can transition to Augmentin and cipro.
Assessment / Plan
Diverticular abscess
- s/p IR drainage (12/25/23)
- s/p exploratory lap, colostomy (01/03/24)
- s/p IR drainage perisplenic fluid (01/13/24)
- s/p IR drain placement to pelvic abscess (01/25/24)
Leukocytosis - resolved
Left pleural effusion
-S/p left chest tube placement, pleurolysis
- culture negative
BUE superficial thrombus
Hx Pulmonary aspergillosis; on Vfend as outpatient.
Recurrent diverticulitis
Anxiety/depression
Hx steroid-induced psychosis
GERD
Asthma
Recommendations:
01/24 pelvic abscess cx: Enterococcus raffinosus; E. coli -> now zosyn-resistant.
Continue ampicillin/sulbactam and ceftriaxone.
At time if discharge, can transition to Augmentin and cipro.
Continue with voriconazole, present on admission.
����������������������������������������������������������
Chief Complaint
-: Other (Diverticulitis; diverticular abscess)
Subjective / Review of Systems
Feeling better. Chest tube still in place.
Vital Signs / Physical Exam
Vital Signs
Vital Signs
Temp Pulse Resp BP Pulse Ox
97.8 F 82 16 181/78 97
02/01/24 07:45 02/01/24 09:19 02/01/24 08:24 02/01/24 09:19 02/01/24 08:24
Physical Exam
Constitutional: No Acute Distress and Comfortable
Cardiovascular: Regular Rate and S1/S2
Pulmonary: Other (decreased BS left base)
Gastrointestinal: Soft, Non Tender, Non Distended and Other (DAKOTA drain x 2 with serous output; ostomy intact)
Objective Data
Lab Data
Lab Results
02/01/24 06:14
02/01/24 06:14
PT 15.3 Sec (11.4-14.6) H 01/06/24 15:22
INR 1.21 01/06/24 15:22
APTT 35.6 Sec (23.4-35.0) H 01/06/24 15:22
Estimated Creat Clear 109 ml/min 02/01/24 06:14
Lactic Acid Cancelled 01/04/24 09:00
Total Bilirubin 0.6 mg/dl (0.2-1.3) 02/01/24 06:14
AST 97 U/L (14-36) H 02/01/24 06:14
ALT 36 U/L (0-35) H 02/01/24 06:14
Alkaline Phosphatase 382 U/L (38-126) H 02/01/24 06:14
Most recent labs reviewed.
Micro Results:
01/25/24 15:56 Wound Culture - Final
Abscess Escherichia coli
Enterococcus raffinosus
Gram Stain - Final
01/26/24 16:12 Body Fluid Culture - Final
Pleural Fluid No Growth After 72 Hours
Gram Stain - Final
01/20/24 14:44 Body Fluid Culture - Final
Pleural Fluid No Growth After 72 Hours
Gram Stain - Final
01/13/24 20:22 Blood Culture - Final
Blood/Venous No Growth - Final Report
01/13/24 18:56 Blood Culture - Final
Blood/Venous No Growth - Final Report
01/15/24 10:08 Respiratory Culture - Final
Sputum Gram Stain - Final
01/13/24 13:00 Wound Culture - Final
Abscess Enterococcus raffinosus
Escherichia coli
Gram Stain - Final
01/09/24 14:28 Nasal Screen MRSA (PCR) - Final
Nose MRSA not detected - performed by PCR methodology.
12/26/23 14:43 Blood Culture - Final
Blood/Venous No Growth - Final Report
12/26/23 12:59 Blood Culture - Final
Blood/Venous No Growth - Final Report
12/25/23 17:30 Wound Culture - Final
Abscess Escherichia coli
Escherichia coli#2
Streptococcus species
Group F Streptococcus
Gram Stain - Final
Imaging:
01/12/2024 CT abdomen/pelvis with contrast: There is a focal predominantly fluid collection in the left upper quadrant, which contains an anterior air-fluid level, compatible with an abscess. This has increased compared to examination of January 07,
2023. Of note, this collection is along the anterior margin of the spleen, without a well-defined plane between the collection and the spleen. There is also an irregular fluid collection within the left pelvis as described, and superimposed
infection of this collection cannot be excluded. There is a pigtail catheter in the left posterior pelvis, entering to the left gluteal region, with no evidence of a collection adjacent to this catheter. Subcutaneous edema, greater in both flanks.
Bilateral pleural effusions, left greater than right. Parenchymal opacity within both lower lobes, greater on the left compared to the right. This is most likely atelectasis, although underlying pneumonia difficult to completely exclude
radiographically.
01/03/2024 CT abdomen/pelvis: Markedly decreased posterior true pelvis abscess in comparison to prior pre-op chest drainage study with pigtail drainage catheter seen in the soft tissues of the left posterior true pelvis. Massively distended right
colon including cecum (cecum measuring up to 12 cm) with marked maximal colonic stool as well as gaseous distention of transverse and proximal descending colon, moderate stool with distention of the distal descending and sigmoid colon, limited in
evaluation without oral contrast opacification. Thickening Of the wall of the distal descending and proximal sigmoid colon which could represent colitis or diverticulitis. Partially obstructing distal colonic mass with inflammation cannot be
excluded. No free air. Please see full dictation for additional detail.
--- NOTE | 2024-02-01 11:01 | W.PN.GS2 ---
Addendum entered and electronically signed by Sandor Salazar MD 02/01/24 12:26:
I saw and examined the patient independently.
The Access Rn's note was reviewed and I agree with the note, assessment and plan except where noted below.
Comment: 53-year-old female with aspergillus pneumonia, diverticulitis that failed nonoperative management status post Garcia's procedure with prolonged hospital course.
Plan for CT chest abdomen pelvis with IV, p.o. and rectal contrast tomorrow.
May start to remove some of her drains, particularly the serous appearing ones.
Begin dispo planning
General surgery will continue to follow.
Original Note:
Today's Communication / Plan
-
Continue drains
Assessment / Plan
-
Assessment: 53 yo female with recent aspergillus pneumonia on home O2 and on recent steroids presenting with complicated diverticulitis with large pelvic abscess, failed initial nonoperative management now status post Garcia's procedure.
12/25/2023 s/p IR drainage of abscess cx with 2 strep species and 2 species of e.coli noted
01/03/2024 s/p exploratory laparotomy with takedown of splenic flexure, creation end colostomy with omentectomy
01/13/2024 s/p IR drain post op perisplenic fluid collection 01/14/24 cx with enterococcus/e. coli.
Off TPN since 01/12, on LRD
01/24/2024 Left lower quadrant DAKOTA that was previously draining pus dislodged. CT repeated with recurrent pleural effusion and fluid collection to the left mid/lower abd. No extravasation of contrast from the rectal stump.
01/27/[address] Left [address] chest tube place with TPA tx
AFVSS
Stable from surgical standpoint
abd JPs unchanged - not much outputs
Plan:
low residue diet and encourage PO intake/supplements; okay for family to bring in food/supplements from home.
Pain control as needed
Continue abx per ID recs
Ostomy teaching
PT/OT following, ?acute rehab upon discharge
Continue drains to bulb suction, Flush drains daily. Will need eventual repeat CT imaging to evaluate for resolution of collections, tentatively later this week. timing TBD
Daily dressing changes to midline incision, dry gauze packing to open area in middle of wound
DVT: SCDs as tolerated. Lovenox sq
Subjective Data
-
Date of Service: February 01, 2024
Patient seen and examined at bedside with Dr. Philip. Dumont n/v. Tolerating diet. Pain at CT site, but otherwise comfortable.
Objective Data
-
Intake and Output
01/31/24 02/01/24 02/02/24
06:59 06:59 06:59
Intake Total 2775 / 2775 915 / 915
Output Total 3640 / 3640 3090 / 3090
Balance -865 / -865 -2175 / -2175
Intake:
Oral fluids 2320 / 2320 700 / 700
IV piggybacks 440 / 440 200 / 200
Amount instilled into Drain (
Total)
Left Lower Abdomen B
Left Upper Abdomen Placed in IR
Output:
Liquid stool amount 100 / 100
Colostomy 100 / 100
CT Output (Total) 320 / 320 170 / 170
Left Lateral A 320 / 320 170 / 170
Drain Output (Total) 20 / 20 20 /
Left Lower Abdomen B
Left Upper Abdomen Placed in IR
Urine, Voided 3200 / 3200 2900 / 2900
Other:
How many times incontinent 1
SMALL amount urine
How many times incontinent 2
MODERATE amount urine
How many times incontinent 2
SATURATED amount urine
Vital Signs
Temp Pulse Resp BP Pulse Ox
97.8 F 82 16 181/78 97
02/01/24 07:45 02/01/24 09:19 02/01/24 08:24 02/01/24 09:19 02/01/24 08:24
Lab Results
02/01/24 06:14
02/01/24 06:14
Calcium 8.3 mg/dl (8.4-10.2) L 02/01/24 06:14
Phosphorus 4.0 mg/dl (2.5-4.5) 02/01/24 06:14
Magnesium 2.0 mg/dl (1.6-2.3) 02/01/24 06:14
Total Bilirubin 0.6 mg/dl (0.2-1.3) 02/01/24 06:14
AST 97 U/L (14-36) H 02/01/24 06:14
ALT 36 U/L (0-35) H 02/01/24 06:14
Alkaline Phosphatase 382 U/L (38-126) H 02/01/24 06:14
Total Protein 5.1 g/dl (6.3-8.2) L 02/01/24 06:14
Albumin 2.4 g/dl (3.5-5.0) L 02/01/24 06:14
Physical Exam
-
NAD AAOx3
ABD: soft, midline incision with open area to middle of incision granulating well with ss drainage, otherwise well approximated
DAKOTA #1 SSF DAKOTA #2 ssf (both minimal)
left sided ostomy with pink, viable stoma: productive of stool/flatus
--- NOTE | 2024-02-01 12:08 | W.PN.HOSP.TC ---
Today's Communication/Plan
-
Midline
DC IV in foot
CW ABX
Follow CT output and pulm recs
Assessment / Plan
Assessment / Plan
A/P:
Sigmoid diverticulitis with abscess:
-h/o diverticulosis/diverticulitis
-s/p abscess drainage 12/25/23 by IR. E. coli resistant to Zosyn from 01/24 and also Enterococcus. E. coli pansensitive and Enterococcus Raffinosus on 01/12 wound cultures. Pleural fluid cultures pending but no growth.
-with findings of massively distended right colon including the cecum on CT scan of the abdomen pelvis on January 03, 2024 the patient was taken to the OR for Exploratory laparotomy, takedown splenic flexure, creation end colostomy, omentectomy
-Continue antibiotics, IV ampicillin and Fortaz based on sensitivities on 01/26.
-Status post abdominal drains on 01/12 and 01/24.
-Follow-up repeat blood cultures for recurrent fevers since 01/12 but so far no growth but initial wound cultures growing E. coli and Enterococcus Raffinosus
- Rpt CT A/P from 01/23 noted -cw drain per surgery/IR
-Surgery following
-Low residue diet per surgery
Left Pleural effusion, complicated loculated effusion(suspicion for culture-negative empyema):
Status post chest tube on 01/26
Pleural fluid cultures pending but no growth.
Pulmonary following
Prior to today:
Left pleural effusion s/p thoracentesis 01/25 (exudative)
Acute hypoxic respiratory insufficiency:
Now off of high flow oxygen for increased PEEP--> now down to 2-3 L of oxygen. Wean as tolerated.
Continue to titrate oxygen as able.
Pulmonary following-on oxygen and chest tube in place
Cardiology signed off-on oral diuresis
Continue incentive spirometry
Continue Acapella
Continue bronchodilators
Aspiration precautions
Leukocytosis:
Normalized
Afebrile
Continue current antibiotics per ID
Continue to trend.
Abnormal EKG-patient now has poor R waves in the anterior leads and also T wave inversion. Echo also showed low normal EF of 50%. Appreciate cardiology input.
Dyskinetic movements/Restless Legs:
-Psychiatry and neurology have decided to start her on Ingrezza. Seems to be working well. Pt feeling improved from her movements standpoint. She also has been placed on Ativan per psychiatry.
-Also started on amantadine.
-Stopped Requip and Neupro patch
-Started melatonin
-Remains on trazodone 100 mg as needed, Flexeril as needed, Dilaudid as needed; psych discussed with outpatient psychiatrist who felt she did not have manic episode but patient decided to continue Depakote. Depakote now discontinued .
-Seroquel stopped as Vfend increases serum concentration of Seroquel.
-Avoid antidopaminergic agents as much as possible
Thrombosis left upper extremity:
We repeated ultrasound last evening. I will request that hematology consultation for further evaluation and advise as per patient request.
Superficial thrombosis in the left basilic vein (no DVT)
On Lovenox 40 mg daily for prevention DVT and will be enough for above plus local care.
PICC dced 01/19
Acute blood loss anemia:
-Aim to keep H&H more than 7. Follow blood work. Hemoglobin 8.7 yesterday, pending today
-s/p 4U pRBCs
Hyponatremia -sodium 131. Pt was volume overloaded .Improving. Continue to follow
Other problems:
h/o pulmonary Aspergillus: since Apr 2023. cont Vfend.
Hyperkalemia, resolved
HLD
GERD: cont PPI
Anxiety/depression: Continue Trazodone PRN/Prozac/Depakote. Seroquel stopped by psych.
FULL/Lovenox
CW PT/OT eval/tx
DW CM
Ok to have midline in right arm
Time spent 50 minutes.
Anticipated Discharge: > 48 hours
Subjective/Interval History
-
Date of Service: February 01, 2024
Pt feels best today
Objective Data
-
Labs:
Laboratory Results
02/01/24
06:14
WBC 9.7
Hgb 8.1 L
Hct 24.6 L
Plt Count 443 H
Sodium 131 L
Potassium 3.7
Chloride 95 L
Carbon Dioxide 30
BUN 5 L
Creatinine 0.4 L
Glucose 81
Calcium 8.3 L
Total Bilirubin 0.6
AST 97 H
ALT 36 H
Alkaline Phosphatase 382 H
Vital Signs:
Vital Signs
Temp Pulse Resp BP Pulse Ox
97.8 F 82 16 181/78 97
02/01/24 07:45 02/01/24 09:19 02/01/24 08:24 02/01/24 09:19 02/01/24 08:24
I&O
01/31/24 02/01/24 02/02/24
06:59 06:59 06:59
Intake Total 2775 / 2775 915 / 915
Output Total 3640 / 3640 3090 / 3090
Balance -865 / -865 -2175 / -2175
Review of Systems
-
Constitutional: Denies Fever
Respiratory: Denies Trouble Breathing
Cardiac: Denies Chest Pain
Abdomen/GI: Denies Nausea or Vomiting
Neuro: Denies Dizzy
Physical Exam
-
General: No Apparent Distress
HEENT: Moist Mucous Membranes
Respiratory: Decreased Breath Sounds (left base) and Chest Tubes (left)
Cardiac: Regular Rhythm and S1/S2
GI: Soft
Musculoskeletal: Negative Edema, Right Upper Extrem or Edema, Left Upper Extrem
Neuro: AO x 3
Psych: Calm; Negative Confused
Data Reviewed
-
Labs: Labs Reviewed by me
[2024-02-01 12:10] VITALS: BP 187/93
[2024-02-01 12:25] VITALS: BP 187/93; PULSE 82; O2SAT 99
[2024-02-01] MEDS: ROCEPHIN 2000 MG IV (13:11)
[2024-02-01] MEDS: STERILE WATER FOR INJECTION 20 ML IV (13:12)
[2024-02-01] MEDS: ZOFRAN 4 MG IV (13:25)
[2024-02-01] MEDS: ATIVAN 0.5 MG PO (13:25)
--- NOTE | 2024-02-01 13:26 | W.PN.PUL3 ---
Today's Communication / Plan
-
Will remove chest tubes today, IR contacted via TT.
Cont nebs and secretion clearance interventions.
Assessment
-
53-year-old female with past medical history of recurrent diverticulitis, pulmonary aspergillosis, hyperlipidemia, anxiety/depression, and GERD who presents with abdominal pain. She apparently was recently treated for diverticulitis in October 2023
with Augmentin at [facility] in [place] where she resides. She also reported that she was treated this month for ongoing fungal lung infection with Aspergillus and also given additional antibiotics but unknown what names of these
medications are. She developed a fever about 5 days ago and continues to be on Augmentin for last 3 days. She was visiting her mother in [place] prior to arrival when the pain in her left lower quadrant became severe so she came here to the
hospital for further care. She was afebrile in the ER to 98.6 �F, 79 pulse rate, breathing at 16 breaths/min, normotensive at 133/77 and saturating 100% on room air. Labs showed leukocytosis to 21.2, mild anemia to 11.5, mild hyponatremia to 134,
mild hyperkalemia to 5.6, and negative lipase of <10. CT A/P on admission showed severe sigmoid diverticulitis with large pericolonic abscess. She was given pain medications in the ER + Levaquin + IV fluids with NS x1L, and admitted to the
hospitalist service with general surgery consulted and antibiotics were started with Zosyn. She underwent IR CT-guided drainage on 12/24 with 170 cc of pale green purulent material seen - this later grew E. coli and group F Streptococcus. Patient
continues to be managed on the floor and was having issues with constipation. Repeat CT A/P performed on 01/02 showing decrease size in the abscess with pigtail drainage catheter seen in place, with massively distended right colon including the
cecum with stool distention and continued suspected distal descending colon/sigmoid diverticulitis. Given patient's worsening pain with distention and no flatus or BM in about 4 days, patient underwent exploratory laparotomy with splenic flexure
takedown, creation of end colostomy and omentectomy on 01/03/2024, and transferred to the ICU postoperatively. There was 150 cc of EBL and no immediate complications. Patient was stabilized and sent to the floor and pulmonary was reconsulted
01/12/2024 with ongoing hypoxemia.
Impression:
#Sigmoid diverticulitis s/p exploratory laparotomy with splenic flexure takedown, end colostomy creation and omentectomy � OR date: 01/12/2024
#Sigmoid diverticulitis c/b large pericolonic abscess s/p IR CT-guided drainage on 12/24 with purulent fluid growing E. coli + group F Streptococcus
#Constipation
#Leukocytosis
#Chronic anemia (unknown baseline but she has been between 8.5�11.5g/dL since admission)
#Lower lobe pulmonary bronchiectasis � likely due to her history of chronic pulmonary aspergillosis diagnosed in fall 2022
#History of pulmonary aspergillosis on voriconazole
#Left-sided pleural effusion status post thoracentesis on 01/20/2024 (exudative fluid with low glucose of 35) + repeat thoracentesis on 01/25 (also low glucose <30) suspicious for complicated effusion (either direct extension from abdomen vs
parapneumonic effusion) now s/p chest tube placed 01/27/2024 by IR
RUE SVT distal R cephalic v
Plan:
Respiratory status improved after thoracentesis 01/20/2024 --> she everton- accumulation of left-sided pleural fluid and underwent repeat thoracentesis on 01/25 with low glucose and PMN predominant --> US during thora shows highly loculated effusion-->
chest tube placed on 01/27/2024 via IR with tPA + dornase BID x 3 days --> for 4th and 5th doses of 6 on 01-[address] s/c 01-28: decreasing small L PF, chest tube at target location
CXR 01-29: portable, residual L PF, L base pigtail cath in place, no free air. LLQ pigtail cath
6th dose tPA/DNase 01-29
Since after 5 PM 06-22 after unclamping left chest tube post last dose of lysis, the patient has produced a total of 330 mL of serosanguineous fluid as of 6:30 PM 01-30 (new L pleur-evac installed today, 130 mL level marked)
CXR 01-30: improved small L basilar PF collection, pigtail cath in place
Chest tube output declining, CXR todayd reviewed 02/01/2024. Tiny effusion on left.
Will ask IR to evaluated and hopefully pull chest tubes out. Suspect part of effusion is due to low albumin state.
Pt Feels better from the pulmonary perspective.
Lung exam relatively clear.
Supplemental oxygen as needed-currently on 3 L/min mid flow-attempt to wean as tolerated
Incentive spirometry encouraged
Acapella
DuoNebs TID + budesonide BID prn
Singulair continues
Note that the patient takes Breo as an outpatient
-
Upper right extremity ultrasound 01/20/2024-no evidence for DVT
RUE doppler 01-29: new SVT at distal R cephalic, c/w negative test 01-19
No indication for AC but should follow, ordered f/u RUE doppler 02-01
Continue antibiotics -Per ID.
Infectious disease following-correspondence reviewed
Left upper quadrant collection-IR drainage 01/13/2024 --> grew Enterococcus raffinosus + E. coli
Prior LLQ acute DAKOTA drain had dislodged and patient underwent re-insertion by IR on 01/24--> fluid grew MDR-E. coli -
Continue voriconazole for her history of pulmonary aspergillosis
Cardiology following-correspondence reviewed
Surgery following-correspondence reviewed --> no additional procedures needed as of 01/26, and she will be discharged with her abdominal drains that IR placed
CT abdomen 01/12/2024-fluid collection left upper quadrant contains anterior air-fluid level compatible with abscess increased compared to 01/08/2024, irregular fluid collection within left pelvis and superimposed infection of this collection cannot be
excluded, pigtail catheter in posterior pelvis no evidence of collection in this area, bilateral pleural effusions left greater than right most likely atelectasis
-
Intermittent CT abdomen to follow-up on collections --> less CT A/P on 01/24/2024 showing anterior left midline/LLQ small collection with trace mental stable fluid adjacent to the spleen, and free air within the peritoneum (expected post-procedure)
-
Neurology following due to tardive dyskinesia-correspondence reviewed
DVT prophylaxis-on Lovenox
GI prophylaxis-on Protonix (she takes pantoprazole at home)
Nutrition per surgery
PT/OT --> rec'd acute rehab upon discharge
Outpatient pulmonary follow-up -she has a senior support engineer as well as an ID doctor in [place], [place], she will follow-up with those specialists once she is discharged.

Data:
Chest x-ray 01/13/2024-moderate left pleural effusion which is stable and left lower lobe infiltrate concerning for pneumonia also stable
Chest ultrasound 01/11/2024-small to moderate pleural effusion, thoracentesis canceled-not enough fluid for evacuation
Chest x-ray 01/19/2024-large left pleural effusion
Chest x-ray 01/20/2024-large left pleural effusion not significantly changed, borderline pulmonary edema with cephalization
Chest x-ray 01/26/2024-Loculated moderate left pleural effusion. Mildly improved. No pneumothorax.
Chest x-ray 01/27/2024-Residual small volume left pleural fluid and left basilar atelectasis, improved as compared with prior.
Chest x-ray 01/28/2024- Left thoracostomy drains are unchanged in position; Slight improvement in left pleural opacity, consistent with improving left pleural effusion; Partial atelectasis versus pneumonia in left lower lobe. This is stable
Echo 01/19/2024: EF 50%, stage I DD, mild TR, PAP 35 to 40 mmHg, mild IN, pleural effusion present, trivial pericardial effusion. IVC is moderately dilated
Subjective Data
-
Date of Service:
Date of Service: February 01, 2024
Chief Complaint: Pulmonary Follow Up and Dyspnea Follow Up
Subjective:
No new overnight events.
Chest tube output declining.
Review of Systems
General: Fever (n)
Cardiopulmonary: Dyspnea (n)
GI: Abdominal Pain (n) and Nausea (n)
Objective Data
Data Reviewed
Vital Signs / I&O / Oxygen:
Vital Signs
Temp Pulse Resp BP Pulse Ox
98.4 F 82 18 187/93 99
02/01/24 12:10 02/01/24 12:10 02/01/24 12:10 02/01/24 12:10 02/01/24 12:10
Intake and Output
01/31/24 02/01/24 02/02/24
06:59 06:59 06:59
Intake Total 2775 / 2775 915 / 915
Output Total 3640 / 3640 3090 / 3090
Balance -865 / -865 -2175 / -2175
SaO2 99
Nasal Cannula flow liters per 2
minute
Physical Exam
General: Respiratory Distress (n), Comfortable, Chills (negative) and Other (deconditioned appearance)
HEENT: Normocephalic and Anicteric
Cardiovascular: S1-S2, Regular Rhythm, Peripheral Edema (Trace edema in lower extremities bilaterally) and Calf Tenderness (n)
Respiratory: Wheeze (negative), Crackles (bases bilaterally), Rhonchi (negative), Non-Labored Respirations, Accessory Resp Muscle Use (n), Stridor (n), Chest Tube (Left lateral base (placed via IR on 01/27/2024)) and Other (Diminished BS at left
base to left middle field + dullness to percussion on L in base to left middle lung field)
GI: Soft, Distended, Tender and Other (LUQ and LLQ pigtail cath in place)
Neurology: Awake, AO x 3, No Motor Deficits and Tremors (occasional in her r-hand)
Skin: Warm, Dry, Cyanosis (n) and Jaundice (n)
Labs/Micro/Reports
Lab Data
02/01/24 06:14
02/01/24 06:14
Microbiology
01/25/24 15:56 Abscess Wound Culture - Final
Escherichia coli
Enterococcus raffinosus
01/25/24 15:56 Abscess Gram Stain - Final
01/26/24 16:12 Pleural Fluid Body Fluid Culture - Final
No Growth After 72 Hours
01/26/24 16:12 Pleural Fluid Gram Stain - Final
[2024-02-01 13:33] VITALS: BP 158/94
--- NOTE | 2024-02-01 14:23 | PN.IRAD.UPD ---
Update Note - IRAD
- -
WENT BEDSIDE AT 1415 TO REMOVE PATIENT'S LEFT SIDED CHEST TUBE. CLEANED AND PREPPED THE AREA, REMOVED THE TUBE AND DRESSED WITH VASIGAUZE AND PRIMAPORE. NO COMPLAINTS FROM PATIENT, NOTIFIED NURSE ABIMAEL.
--- NOTE | 2024-02-01 14:27 | W.PN.UPDATE ---
Update Note
Progress Note Update
Left chest tube removed at bedside without difficulty. After chest tube removal, vaseline gauze and dsd was applied. Pt tolerated the procedure well
--- NOTE | 2024-02-01 15:30 | WOUNDNOTE ---
ELISE RN NOTE: Appliance changed today with participation from patient. Stoma is 1 3/8' oval, mucocutaneous area has healed. Started leaking formed stool under wafer medially, 4 day wear time. Encouraged patient to change appliance q 3-4
days unless leaking. Stoma is pink and budded, os is pointing down and in divot of soft abdomen, causing leakage. Convex wafer with Kelly seal and drainable pouch applied. Had patient cut out wafer and snap on pouch. Extensive teaching done
regarding emptying, skin care, and changing pouch. Answered all questions and called SPD for more pouches and Kelly seals. Applied small piece of silver alginate and folded 4x4 gauze over old DAKOTA site distal to wafer border. Patient much more alert
today and able to comprehend ostomy care. Support and encouragement given. Will bring additional Convex wafers to tomorrow. Can take all supplies upon discharge. Will follow as needed.
--- NOTE | 2024-02-01 15:33 | CM ---
Reviewed the chart notes. The patient's chest tube was removed today at the bedside. CM continues to be available to patient/family and is monitoring medical plan for needs at discharge.
Plan: Discharge to acute rehab once medically stable. Precert will be required.
[2024-02-01 15:40] VITALS: BP 153/84
[2024-02-01] MEDS: TESSALON PERLES 100 MG PO (16:58)
[2024-02-01] MEDS: SINGULAIR 10 MG PO (16:58)
[2024-02-01] MEDS: LOVENOX 40 MG SC (16:58)
[2024-02-01] MEDS: MELATONIN 5 MG PO (21:27)
--- NOTE | 2024-02-01 21:33 | W.PN.ONC2 ---
Today's Communication / Plan
-
R cephalic vein thrombosis improving.
Will see back as needed, please call if questions.
Impression
Impression
Limited superficial thrombosis of RUE cephalic vein, improved
Plan
Plan
Given minimal symptoms and lack of deep vein involvement, and clinical improvement, no need for anticoagulation.
Continue warm compresses/ NSAIDs.
Subjective/Objective
Chief Complaint
Hematology follow up of R cephalic vein thrombosis
Subjective
Pt states R arm much less swollen, feels better.
Vital Signs:
Vital Signs
Temp Pulse Resp BP Pulse Ox
98.5 F 81 18 153/84 96
02/01/24 15:40 02/01/24 16:57 02/01/24 15:40 02/01/24 16:57 02/01/24 15:40
Lab Results:
Laboratory Data
WBC 9.7 10^3/uL (4.8-10.8) 02/01/24 06:14
Hgb 8.1 g/dL (12.0-16.0) L 02/01/24 06:14
Plt Count 443 10^3/uL (130-400) H 02/01/24 06:14
PT 15.3 Sec (11.4-14.6) H 01/06/24 15:22
INR 1.21 01/06/24 15:22
APTT 35.6 Sec (23.4-35.0) H 01/06/24 15:22
eGFR > 60.00 02/01/24 06:14
Physical Exam
Awake, alert, non-toxic appearing
No palpable cord, swelling or tenderness R arm
[2024-02-01 23:46] VITALS: BP 141/69
[2024-02-02] MEDS: UNASYN IV ×4 (03:40→21:04)
[2024-02-02] MEDS: ROXICODONE 5 MG PO ×4 (03:40→17:50)
[2024-02-02 05:39] VITALS: BMI 25.2
[2024-02-02 07:40] VITALS: BP 161/84
--- NOTE | 2024-02-02 07:41 | W.PN.GS2 ---
Today's Communication / Plan
-
-- CT abdomen/pelvis with PO,IV, and rectal contrast, drain management pending
-- Dispo planning
-- Abx per ID
Assessment / Plan
-
Assessment: 53 yo female with recent aspergillus pneumonia on home O2 and on recent steroids presenting with complicated diverticulitis with large pelvic abscess, failed initial nonoperative management now status post Garcia's procedure.
12/25/2023 s/p IR drainage of abscess cx with 2 strep species and 2 species of e.coli noted
01/03/2024 s/p exploratory laparotomy with takedown of splenic flexure, creation end colostomy with omentectomy
01/13/2024 s/p IR drain post op perisplenic fluid collection 01/14/24 cx with enterococcus/e. coli.
Off TPN since 01/12, on LRD
01/24/2024 Left lower quadrant DAKOTA that was previously draining pus dislodged. CT repeated with recurrent pleural effusion and fluid collection to the left mid/lower abd. No extravasation of contrast from the rectal stump.
01/27/[address] chest tube place with TPA tx
AFVSS
Stable from surgical standpoint
Abd JPs unchanged - not much outputs
Plan for repeat CT abdomen/pelvis with oral, rectal, and IV contrast today to assess for undrained collections as well as help determine the status of her current drains. Dispo planning.
Plan:
CT abdomen/pelvis with PO,IV, and rectal contrast
Low residue diet and encourage PO intake/supplements; okay for family to bring in food/supplements from home.
Pain control as needed
Continue abx per ID recs
Ostomy teaching
PT/OT following, ?acute rehab upon discharge, dispo planning
Continue drains to bulb suction, Flush drains daily. Repeat CT imaging today to evaluate for resolution of collections
Daily dressing changes to midline incision, dry gauze packing to open area in middle of wound
DVT: SCDs as tolerated. Lovenox sq
Subjective Data
-
Date of Service: February 02, 2024
Major complaints. Denies worsening abdominal pain. No nausea or vomiting, tolerating a LRD. No fevers. Feels well overall.
Objective Data
-
Intake and Output
02/01/24 02/02/24 02/03/24
06:59 06:59 06:59
Intake Total 915 / 915 2400 / 2400
Output Total 3090 / 3090 1350 / 1350
Balance -2175 / -2175 1050 / 1050
Intake:
Oral fluids 700 / 700 2160 / 2160
IV piggybacks 200 / 200 240 / 240
Amount instilled into Drain (
Total)
Left Lower Abdomen B 10 / 10
Left Upper Abdomen Placed in IR 5 / 5
Output:
CT Output (Total) 170 / 170 40 / 40
Left Lateral A 170 / 170 40 / 40
Drain Output (Total) 20 / 20 10 / 10
Left Lower Abdomen B 10 / 10 5 / 5
Left Upper Abdomen Placed in IR 10 / 10 5 / 5
Urine, Voided 2900 / 2900 1300 / 1300
Other:
Number of approximated SMALL 2
amounts of urine
Number of approximated MODERATE 3
amounts of urine
Number of approximated LARGE 2
amounts of urine
How many times incontinent 2
MODERATE amount urine
How many times incontinent 2
SATURATED amount urine
Vital Signs
Temp Pulse Resp BP Pulse Ox
98.5 F 81 20 141/69 94
02/01/24 23:46 02/01/24 23:46 02/01/24 23:46 02/01/24 23:46 02/01/24 23:46
Lab Results
02/01/24 06:14
02/01/24 06:14
Calcium 8.3 mg/dl (8.4-10.2) L 02/01/24 06:14
Phosphorus 4.0 mg/dl (2.5-4.5) 02/01/24 06:14
Magnesium 2.0 mg/dl (1.6-2.3) 02/01/24 06:14
Total Bilirubin 0.6 mg/dl (0.2-1.3) 02/01/24 06:14
AST 97 U/L (14-36) H 02/01/24 06:14
ALT 36 U/L (0-35) H 02/01/24 06:14
Alkaline Phosphatase 382 U/L (38-126) H 02/01/24 06:14
Total Protein 5.1 g/dl (6.3-8.2) L 02/01/24 06:14
Albumin 2.4 g/dl (3.5-5.0) L 02/01/24 06:14
Physical Exam
-
Gen: NAD
Resp: supplemental O2
Abd: soft, midline incision with open area to middle of incision granulating well with ss drainage, otherwise well approximated
DAKOTA #1 SSF DAKOTA #2 ssf (both minimal)
Left sided colostomy with pink, viable stoma: productive of stool/flatus
[2024-02-02] MEDS: SYMMETREL 100 MG PO ×2 (08:00→21:00)
[2024-02-02] MEDS: PROZAC 20 MG PO (08:00)
[2024-02-02] MEDS: LASIX 40 MG PO ×2 (08:00→15:45)
[2024-02-02] MEDS: VITAMIN D3 (cholecalciferol) 25 MCG PO (08:00)
[2024-02-02] MEDS: KCL 40 MEQ PO (08:00)
[2024-02-02] MEDS: FOLVITE 1 MG PO (08:01)
[2024-02-02] MEDS: PROTONIX IV 40 MG IV (08:01)
[2024-02-02] MEDS: NSS (PRESERVATIVE FREE) 10 ML IV (08:02)
[2024-02-02] MEDS: NON-FORMULARY ITEM 1 UNIT PO (08:02)
[2024-02-02] MEDS: VFEND 200 MG PO ×2 (09:24→21:03)
[2024-02-02] MEDS: OMNIPAQUE 50 ML PO (09:24)
[2024-02-02] MEDS: TESSALON PERLES 100 MG PO ×2 (09:25→16:40)
[2024-02-02 10:11] VITALS: PULSE 81; O2SAT 99
--- NOTE | 2024-02-02 10:57 | W.PN.ID1 ---
Date of Service
Date of Service: February 02, 2024
Today's Communication
Agree with repeat CT a/p to follow collections.
Assessment / Plan
Diverticular abscess
- s/p IR drainage (12/25/23)
- s/p exploratory lap, colostomy (01/03/24)
- s/p IR drainage perisplenic fluid (01/13/24)
- s/p IR drain placement to pelvic abscess (01/25/24)
Leukocytosis - resolved
Left pleural effusion
-S/p left chest tube placement, pleurolysis
- chest tube dc'd 02/01/24
- culture negative
BUE superficial thrombus
Hx Pulmonary aspergillosis; on Vfend as outpatient.
Recurrent diverticulitis
Anxiety/depression
Hx steroid-induced psychosis
GERD
Asthma
Recommendations:
01/24 pelvic abscess cx: Enterococcus raffinosus; E. coli -> now zosyn-resistant.
For repeat CT a/p today to follow fluid collections, per surgery.
Continue ampicillin/sulbactam and ceftriaxone.
At time if discharge, can transition to Augmentin and cipro.
Continue with voriconazole, present on admission.
����������������������������������������������������������
Chief Complaint
-: Other (Diverticulitis; diverticular abscess)
Subjective / Review of Systems
Glad chest tube is out.
Vital Signs / Physical Exam
Vital Signs
Vital Signs
Temp Pulse Resp BP Pulse Ox
98.1 F 85 18 161/84 97
02/02/24 07:40 02/02/24 08:00 02/02/24 07:40 02/02/24 08:00 02/02/24 07:40
Physical Exam
Constitutional: No Acute Distress and Comfortable
Cardiovascular: Regular Rate and S1/S2
Pulmonary: Other
Gastrointestinal: Soft, Non Tender, Non Distended and Other (DAKOTA drains x 2 with serous output)
Extremities: Negative Edema
Objective Data
Lab Data
Lab Results
02/01/24 06:14
02/01/24 06:14
PT 15.3 Sec (11.4-14.6) H 01/06/24 15:22
INR 1.21 01/06/24 15:22
APTT 35.6 Sec (23.4-35.0) H 01/06/24 15:22
Estimated Creat Clear 109 ml/min 02/01/24 06:14
Lactic Acid Cancelled 01/04/24 09:00
Total Bilirubin 0.6 mg/dl (0.2-1.3) 02/01/24 06:14
AST 97 U/L (14-36) H 02/01/24 06:14
ALT 36 U/L (0-35) H 02/01/24 06:14
Alkaline Phosphatase 382 U/L (38-126) H 02/01/24 06:14
Most recent labs reviewed.
Micro Results:
01/25/24 15:56 Wound Culture - Final
Abscess Escherichia coli
Enterococcus raffinosus
Gram Stain - Final
01/26/24 16:12 Body Fluid Culture - Final
Pleural Fluid No Growth After 72 Hours
Gram Stain - Final
01/20/24 14:44 Body Fluid Culture - Final
Pleural Fluid No Growth After 72 Hours
Gram Stain - Final
01/13/24 20:22 Blood Culture - Final
Blood/Venous No Growth - Final Report
01/13/24 18:56 Blood Culture - Final
Blood/Venous No Growth - Final Report
01/15/24 10:08 Respiratory Culture - Final
Sputum Gram Stain - Final
01/13/24 13:00 Wound Culture - Final
Abscess Enterococcus raffinosus
Escherichia coli
Gram Stain - Final
01/09/24 14:28 Nasal Screen MRSA (PCR) - Final
Nose MRSA not detected - performed by PCR methodology.
12/26/23 14:43 Blood Culture - Final
Blood/Venous No Growth - Final Report
12/26/23 12:59 Blood Culture - Final
Blood/Venous No Growth - Final Report
12/25/23 17:30 Wound Culture - Final
Abscess Escherichia coli
Escherichia coli#2
Streptococcus species
Group F Streptococcus
Gram Stain - Final
Imaging:
01/12/2024 CT abdomen/pelvis with contrast: There is a focal predominantly fluid collection in the left upper quadrant, which contains an anterior air-fluid level, compatible with an abscess. This has increased compared to examination of January 07,
2023. Of note, this collection is along the anterior margin of the spleen, without a well-defined plane between the collection and the spleen. There is also an irregular fluid collection within the left pelvis as described, and superimposed
infection of this collection cannot be excluded. There is a pigtail catheter in the left posterior pelvis, entering to the left gluteal region, with no evidence of a collection adjacent to this catheter. Subcutaneous edema, greater in both flanks.
Bilateral pleural effusions, left greater than right. Parenchymal opacity within both lower lobes, greater on the left compared to the right. This is most likely atelectasis, although underlying pneumonia difficult to completely exclude
radiographically.
01/03/2024 CT abdomen/pelvis: Markedly decreased posterior true pelvis abscess in comparison to prior pre-op chest drainage study with pigtail drainage catheter seen in the soft tissues of the left posterior true pelvis. Massively distended right
colon including cecum (cecum measuring up to 12 cm) with marked maximal colonic stool as well as gaseous distention of transverse and proximal descending colon, moderate stool with distention of the distal descending and sigmoid colon, limited in
evaluation without oral contrast opacification. Thickening Of the wall of the distal descending and proximal sigmoid colon which could represent colitis or diverticulitis. Partially obstructing distal colonic mass with inflammation cannot be
excluded. No free air. Please see full dictation for additional detail.
[2024-02-02] MEDS: ROCEPHIN 2000 MG IV (11:02)
[2024-02-02] MEDS: STERILE WATER FOR INJECTION 20 ML IV (11:03)
--- NOTE | 2024-02-02 13:37 | W.PN.HOSP.TC ---
Today's Communication/Plan
-
CT A/P
Assessment / Plan
Assessment / Plan
A/P:
Sigmoid diverticulitis with abscess:
-h/o diverticulosis/diverticulitis
-s/p abscess drainage 12/25/23 by IR. E. coli resistant to Zosyn from 01/24 and also Enterococcus. E. coli pansensitive and Enterococcus Raffinosus on 01/12 wound cultures. Pleural fluid cultures pending but no growth.
-with findings of massively distended right colon including the cecum on CT scan of the abdomen pelvis on January 03, 2024 the patient was taken to the OR for Exploratory laparotomy, takedown splenic flexure, creation end colostomy, omentectomy
-Continue antibiotics, IV ampicillin and Fortaz based on sensitivities on 01/26.
-Status post abdominal drains on 01/12 and 01/24.
-Follow-up repeat blood cultures for recurrent fevers since 01/12 but so far no growth but initial wound cultures growing E. coli and Enterococcus Raffinosus
- Rpt CT A/P from 01/23 noted -cw drain per surgery/IR
-Surgery following
-Low residue diet per surgery
- For repeat CT A/P today per surgery
Left Pleural effusion, complicated loculated effusion(suspicion for culture-negative empyema):
Status post chest tube on 01/26 which is now removed on 01/31
Pleural fluid cultures no growth.
Pulmonary following
Prior to today:
Left pleural effusion s/p thoracentesis 01/25 (exudative)
Acute hypoxic respiratory insufficiency:
Now off of high flow oxygen for increased PEEP--> now down to 2-3 L of oxygen. Wean as tolerated.
Continue to titrate oxygen as able.
Pulmonary following-on oxygen and chest tube in place
Cardiology signed off-on oral diuresis
Continue incentive spirometry
Continue Acapella
Continue bronchodilators
Aspiration precautions
Leukocytosis:
Normalized
Afebrile
Continue current antibiotics per ID
Continue to trend.
Abnormal EKG-patient now has poor R waves in the anterior leads and also T wave inversion. Echo also showed low normal EF of 50%. Appreciate cardiology input.
Dyskinetic movements/Restless Legs:
-Psychiatry and neurology have decided to start her on Ingrezza. Seems to be working well. Pt feeling improved from her movements standpoint. She also has been placed on Ativan per psychiatry.
-Also started on amantadine.
-Stopped Requip and Neupro patch
-Started melatonin
-Remains on trazodone 100 mg as needed, Flexeril as needed, Dilaudid as needed; psych discussed with outpatient psychiatrist who felt she did not have manic episode but patient decided to continue Depakote. Depakote now discontinued .
-Seroquel stopped as Vfend increases serum concentration of Seroquel.
-Avoid antidopaminergic agents as much as possible
Thrombosis left upper extremity:
We repeated ultrasound last evening. I will request that hematology consultation for further evaluation and advise as per patient request.
Superficial thrombosis in the left basilic vein (no DVT)
On Lovenox 40 mg daily for prevention DVT and will be enough for above plus local care.
PICC dced 01/19
Acute blood loss anemia:
-Aim to keep H&H more than 7. Follow blood work. Hemoglobin 8.7 yesterday, pending today
-s/p 4U pRBCs
Hyponatremia -sodium 131. Pt was volume overloaded .Improving. Continue to follow
Other problems:
h/o pulmonary Aspergillus: since Apr 2023. cont Vfend.
Hyperkalemia, resolved
HLD
GERD: cont PPI
Anxiety/depression: Continue Trazodone PRN/Prozac/Depakote. Seroquel stopped by psych.
FULL/Lovenox
CW PT/OT eval
Consult psychiatry
Anticipated Discharge: > 48 hours
Subjective/Interval History
-
Date of Service: February 02, 2024
patient continues to feel better.
Objective Data
-
Vital Signs:
Vital Signs
Temp Pulse Resp BP Pulse Ox
98.1 F 85 18 161/84 97
02/02/24 07:40 02/02/24 08:00 02/02/24 07:40 02/02/24 08:00 02/02/24 07:40
I&O
02/01/24 02/02/24 02/03/24
06:59 06:59 06:59
Intake Total 915 / 915 2400 / 2400
Output Total 3090 / 3090 1350 / 1350
Balance -2175 / -2175 1050 / 1050
Review of Systems
-
Constitutional: Denies Fever
Respiratory: Denies Trouble Breathing
Cardiac: Denies Chest Pain
Abdomen/GI: Denies Abdominal Pain, Nausea or Vomiting
Neuro: Denies Dizzy
Physical Exam
-
General: No Apparent Distress
HEENT: Moist Mucous Membranes
Respiratory: Clear to Auscultation; Negative Wheezes or Crackles
Cardiac: Regular Rhythm and S1/S2
Neuro: AO x 3
--- NOTE | 2024-02-02 14:45 | W.PN.PUL3 ---
Today's Communication / Plan
-
Continue ox supplementation wean down as able
Restart inhalers upon discharge
Eventual chest imaging in the next 3 to 4 weeks with pulmonary in [place].
No additional recommendation from the pulmonary perspective
Increase activity as able
Incentive spirometry
Sign off
Assessment
-
53-year-old female with past medical history of recurrent diverticulitis, pulmonary aspergillosis, hyperlipidemia, anxiety/depression, and GERD who presents with abdominal pain. She apparently was recently treated for diverticulitis in October 2023
with Augmentin at [facility] in [place] where she resides. She also reported that she was treated this month for ongoing fungal lung infection with Aspergillus and also given additional antibiotics but unknown what names of these
medications are. She developed a fever about 5 days ago and continues to be on Augmentin for last 3 days. She was visiting her mother in [place] prior to arrival when the pain in her left lower quadrant became severe so she came here to the ""hospital for further care. She was afebrile in the ER to 98.6 �F, 79 pulse rate, breathing at 16 breaths/min, normotensive at 133/77 and saturating 100% on room air. Labs showed leukocytosis to 21.2, mild anemia to 11.5, mild hyponatremia to 134,
mild hyperkalemia to 5.6, and negative lipase of <10. CT A/P on admission showed severe sigmoid diverticulitis with large pericolonic abscess. She was given pain medications in the ER + Levaquin + IV fluids with NS x1L, and admitted to the
hospitalist service with general surgery consulted and antibiotics were started with Zosyn. She underwent IR CT-guided drainage on 12/24 with 170 cc of pale green purulent material seen - this later grew E. coli and group F Streptococcus. Patient
continues to be managed on the floor and was having issues with constipation. Repeat CT A/P performed on 01/02 showing decrease size in the abscess with pigtail drainage catheter seen in place, with massively distended right colon including the
cecum with stool distention and continued suspected distal descending colon/sigmoid diverticulitis. Given patient's worsening pain with distention and no flatus or BM in about 4 days, patient underwent exploratory laparotomy with splenic flexure
takedown, creation of end colostomy and omentectomy on 01/03/2024, and transferred to the ICU postoperatively. There was 150 cc of EBL and no immediate complications. Patient was stabilized and sent to the floor and pulmonary was reconsulted
01/12/2024 with ongoing hypoxemia.
Impression:
#Sigmoid diverticulitis s/p exploratory laparotomy with splenic flexure takedown, end colostomy creation and omentectomy � OR date: 01/12/2024
#Sigmoid diverticulitis c/b large pericolonic abscess s/p IR CT-guided drainage on 12/24 with purulent fluid growing E. coli + group F Streptococcus
#Constipation
#Leukocytosis
#Chronic anemia (unknown baseline but she has been between 8.5�11.5g/dL since admission)
#Lower lobe pulmonary bronchiectasis � likely due to her history of chronic pulmonary aspergillosis diagnosed in fall 2022
#History of pulmonary aspergillosis on voriconazole
#Left-sided pleural effusion status post thoracentesis on 01/20/2024 (exudative fluid with low glucose of 35) + repeat thoracentesis on 01/25 (also low glucose <30) suspicious for complicated effusion (either direct extension from abdomen vs
parapneumonic effusion) now s/p chest tube placed 01/27/2024 by IR
RUE SVT distal R cephalic v
Plan:
From the pulmonary perspective clinically improved.
-
Complicated left pleural effusion:
Respiratory status improved after thoracentesis 01/20/2024 --> she everton- accumulation of left-sided pleural fluid and underwent repeat thoracentesis on 01/25 with low glucose and PMN predominant --> US during thora shows highly loculated effusion-->
chest tube placed on 01/27/2024 via IR with tPA + dornase BID x 3 days --> for 4th and 5th doses of 6 on 01-[address] s/c 01-28: decreasing small L PF, chest tube at target location
CXR 01-29: portable, residual L PF, L base pigtail cath in place, no free air. LLQ pigtail cath
6th dose tPA/DNase 01-29
-
Chest tube output declining, CXR 02/01/2024. Tiny effusion on left.
Suspect part of effusion is due to low albumin state.
Chest tube discontinued 02/01/2024.
Patient underwent CT chest abdomen pelvis: Reviewed lung cuts. Minimal left loculated pleural effusion.
Recommend ongoing radiographic follow-up in the future in the next several weeks or as needed depending on symptoms.
Pt Feels better from the pulmonary perspective.
Supplemental oxygen as needed-currently on 3 L/min mid flow-attempt to wean as tolerated, based on chest imaging likely will need some supplemental oxygen upon discharge.
Obtain home oxygen assessment closer to discharge date.
Incentive spirometry encouraged
Increase activity as able.
Acapella
As needed nebulizers. Not bronchospastic on exam 02/02/2024.
Singulair continues
Note that the patient takes Breo as an outpatient-May restart upon discharge.
-
Upper right extremity ultrasound 01/20/2024-no evidence for DVT
RUE doppler 01-29: new SVT at distal R cephalic, c/w negative test 01-19
No indication for AC but should follow, ordered f/u RUE doppler 02-01
Continue antibiotics -Per ID.
Infectious disease following-correspondence reviewed
Left upper quadrant collection-IR drainage 01/13/2024 --> grew Enterococcus raffinosus + E. coli
Prior LLQ acute DAKOTA drain had dislodged and patient underwent re-insertion by IR on 01/24--> fluid grew MDR-E. coli -
Continue voriconazole for her history of pulmonary aspergillosis
Cardiology following-correspondence reviewed
Surgery following-correspondence reviewed
Continue to follow drainage output.
Latest CT abdomen pelvis 02/02/2024: Noted.
-
DVT prophylaxis-on Lovenox
GI prophylaxis-on Protonix (she takes pantoprazole at home)
Nutrition per surgery
Outpatient pulmonary follow-up -she has a veneer sander as well as an ID doctor in [place], [place], she will follow-up with those specialists once she is discharged.
No additional recommendation from the pulmonary perspective.
At this time I will sign off.
Please call with question. Should follow-up with pulmonary upon discharge in the next 3 to 4 weeks with repeat chest x-ray.

Data:
Chest x-ray 01/13/2024-moderate left pleural effusion which is stable and left lower lobe infiltrate concerning for pneumonia also stable
Chest ultrasound 01/11/2024-small to moderate pleural effusion, thoracentesis canceled-not enough fluid for evacuation
Chest x-ray 01/19/2024-large left pleural effusion
Chest x-ray 01/20/2024-large left pleural effusion not significantly changed, borderline pulmonary edema with cephalization
Chest x-ray 01/26/2024-Loculated moderate left pleural effusion. Mildly improved. No pneumothorax.
Chest x-ray 01/27/2024-Residual small volume left pleural fluid and left basilar atelectasis, improved as compared with prior.
Chest x-ray 01/28/2024- Left thoracostomy drains are unchanged in position; Slight improvement in left pleural opacity, consistent with improving left pleural effusion; Partial atelectasis versus pneumonia in left lower lobe. This is stable
Echo 01/19/2024: EF 50%, stage I DD, mild TR, PAP 35 to 40 mmHg, mild IL, pleural effusion present, trivial pericardial effusion. IVC is moderately dilated
Subjective Data
-
Date of Service:
Date of Service: February 02, 2024
Chief Complaint: Pulmonary Follow Up and Dyspnea Follow Up
Subjective:
No new pulmonary complaints.
Chest tubes dc'd 02/02/2024
Review of Systems
Cardiopulmonary: Dyspnea (none a rest)
Objective Data
Data Reviewed
Vital Signs / I&O / Oxygen:
Vital Signs
Temp Pulse Resp BP Pulse Ox
98.1 F 85 18 161/84 97
02/02/24 07:40 02/02/24 08:00 02/02/24 07:40 02/02/24 08:00 02/02/24 14:29
Intake and Output
02/01/24 02/02/24 02/03/24
06:59 06:59 06:59
Intake Total 915 / 915 2400 / 2400 20 / 20
Output Total 3090 / 3090 1350 / 1350
Balance -2175 / -2175 1050 / 1050 20 / 20
SaO2 97
Nasal Cannula flow liters per 2
minute
Physical Exam
General: Respiratory Distress (n), Comfortable, Chills (negative) and Other (deconditioned appearance)
HEENT: Normocephalic and Anicteric
Cardiovascular: S1-S2, Regular Rhythm, Peripheral Edema (Trace edema in lower extremities bilaterally) and Calf Tenderness (n)
Respiratory: Wheeze (negative), Crackles (bases bilaterally), Rhonchi (negative), Non-Labored Respirations, Accessory Resp Muscle Use (n) and Stridor (n)
GI: Soft, Distended, Tender and Other (LUQ and LLQ pigtail cath in place)
Neurology: Awake, AO x 3, No Motor Deficits and Tremors (occasional in her r-hand)
Skin: Warm, Dry, Cyanosis (n) and Jaundice (n)
Labs/Micro/Reports
Lab Data
02/01/24 06:14
02/01/24 06:14
[2024-02-02 15:14] VITALS: BP 166/93
[2024-02-02] MEDS: ZOFRAN 4 MG IV (16:46)
[2024-02-02] MEDS: LOVENOX 40 MG SC (17:00)
[2024-02-02] MEDS: SINGULAIR 10 MG PO (17:00)
[2024-02-02 18:42] VITALS: BP 171/102
--- NOTE | 2024-02-02 18:45 | PTCARENOTE ---
Patient's BP at 1545 166/93, HR 87. Repeat BP taken by tech at 1800 171/102 HR 90. Patient states abdominal pain and nausea earlier in shift improved with PRN oxycodone and zofran but states feeling 'cold sweats' at this time, oral temp taken -
98.7F. Patient states feeling anxious, PRN PO ativan administered by this RN - see OCT. MD made aware of BP results, PRN hydralazine ordered per MD and administered by this RN. Patient OOB in chair, states no further concerns at this time.
[2024-02-02] MEDS: APRESOLINE 5 MG IV (18:49)
[2024-02-02] MEDS: ATIVAN 0.5 MG PO (18:54)
[2024-02-02] MEDS: MELATONIN 5 MG PO (21:03)
[2024-02-02 21:11] VITALS: BP 165/98
[2024-02-02 23:33] VITALS: BP 149/67
[2024-02-03] VITALS (8 sets, daily range): BP systolic 136–183; BP diastolic 60–108; PULSE 88–95; O2SAT 97–100; BMI 25.2
[2024-02-03] MEDS: ROXICODONE 5 MG PO ×2 (01:06→13:42)
[2024-02-03] MEDS: UNASYN IV ×2 (04:39→11:26)
[2024-02-03 04:47] LABS: Hematocrit 24.4 % (37.0-47.0); Mean Corp Hgb Conc. 32.8 g/dL (33.0-37.0); Mean Corpuscular Hgb 29.5 pg (27.0-31.0); Mean Platelet Volume 8.3 fL (7.4-10.4); Platelet Count 383 10^3/uL (130-400); Red Blood Cell Count 2.71 10^6/uL (4.20-5.40); Red Cell Dist. Width 18.6 % (11.5-14.5); White Blood Cell Count 7.7 10^3/uL (4.8-10.8)
[2024-02-03 05:11] LABS: ALT (SGPT) 44 U/L (0-35); AST (SGOT) 80 U/L (14-36); Albumin 2.4 g/dl (3.5-5.0); Alkaline Phosphatase 439 U/L (38-126); Blood Urea Nitrogen 10 mg/dl (7-17); Calcium 8.3 mg/dl (8.4-10.2); Carbon Dioxide 31 mmol/L (22-30); Chloride 96 mmol/L (98-107); Estimated Creatinine Clearance 109 ml/min; Glucose 90 mg/dl (70-99); Sodium 131 mmol/L (135-145); Total Bilirubin 0.4 mg/dl (0.2-1.3); Total Protein 5.4 g/dl (6.3-8.2); eGFR > 60.00
[2024-02-03] MEDS: FOLVITE 1 MG PO (09:16)
[2024-02-03] MEDS: PROTONIX 40 MG PO (09:16)
[2024-02-03] MEDS: KCL 40 MEQ PO (09:16)
[2024-02-03] MEDS: PROZAC 20 MG PO (09:16)
[2024-02-03] MEDS: SYMMETREL 100 MG PO ×2 (09:16→21:36)
[2024-02-03] MEDS: LASIX 40 MG PO (09:17)
[2024-02-03] MEDS: VITAMIN D3 (cholecalciferol) 25 MCG PO (09:17)
[2024-02-03] MEDS: NON-FORMULARY ITEM 1 UNIT PO (09:17)
[2024-02-03] MEDS: VFEND 200 MG PO ×2 (09:26→21:36)
[2024-02-03] MEDS: TESSALON PERLES 100 MG PO ×2 (09:26→21:37)
[2024-02-03] MEDS: TYLENOL 1000 MG PO ×2 (09:26→15:26)
--- NOTE | 2024-02-03 11:43 | W.PN.HOSP.TC ---
Today's Communication/Plan
-
Continue with antibiotics per ID
Follow surgery recommendations
Decrease dose of Lasix
Can use left arm for blood pressure measurements
Assessment / Plan
Assessment / Plan
A/P:
Sigmoid diverticulitis with abscess:
-h/o diverticulosis/diverticulitis
-s/p abscess drainage 12/25/23 by IR. E. coli resistant to Zosyn from 01/24 and also Enterococcus. E. coli pansensitive and Enterococcus Raffinosus on 01/12 wound cultures. Pleural fluid cultures pending but no growth.
-with findings of massively distended right colon including the cecum on CT scan of the abdomen pelvis on January 03, 2024 the patient was taken to the OR for Exploratory laparotomy, takedown splenic flexure, creation end colostomy, omentectomy
-Continue antibiotics per ID
-Status post abdominal drains on 01/12 and 01/24.
-Follow-up repeat blood cultures for recurrent fevers since 01/12 but so far no growth but initial wound cultures growing E. coli and Enterococcus Raffinosus
- Rpt CT A/P from 01/23 noted -cw drain per surgery/IR
-Surgery following
-Low residue diet per surgery
- Had repeat CT A/P 02/01 - await surgery recs
Left Pleural effusion, complicated loculated effusion(suspicion for culture-negative empyema):
Status post chest tube on 01/26 which is now removed on 01/31
Pleural fluid cultures no growth.
Pulmonary following
Prior to today:
Left pleural effusion s/p thoracentesis 01/25 (exudative)
Acute hypoxic respiratory insufficiency:
Now off of high flow oxygen for increased PEEP--> now down to 2-3 L of oxygen. Wean as tolerated.
Continue to titrate oxygen as able.
Pulmonary following-on oxygen and chest tube in place
Cardiology signed off-on oral diuresis
Continue incentive spirometry
Continue Acapella
Continue bronchodilators
Aspiration precautions
Leukocytosis:
Normalized
Afebrile
Continue current antibiotics per ID
Continue to trend.
Abnormal EKG-patient now has poor R waves in the anterior leads and also T wave inversion. Echo also showed low normal EF of 50%. Appreciate cardiology input.
Acute CHF with preserved EF - Signifiant improvement with IV lasix . Weight at her baseline. Decrease the dose of Lasix. Normally not on home Lasix.
Dyskinetic movements/Restless Legs:
-Psychiatry and neurology have decided to start her on Ingrezza. Seems to be working well. Pt feeling improved from her movements standpoint. She also has been placed on Ativan per psychiatry.
-Also started on amantadine.
-Stopped Requip and Neupro patch
-Started melatonin
-Remains on trazodone 100 mg as needed, Flexeril as needed, Dilaudid as needed; psych discussed with outpatient psychiatrist who felt she did not have manic episode but patient decided to continue Depakote. Depakote now discontinued .
-Seroquel stopped as Vfend increases serum concentration of Seroquel.
-Avoid antidopaminergic agents as much as possible
Superficial thrombosis in the left basilic vein (no DVT)
On Lovenox 40 mg daily for prevention DVT and will be enough for above plus local care.
PICC dced 01/19
Acute blood loss anemia:
-Aim to keep H&H more than 7. Follow blood work. Hemoglobin 8.0
-s/p 4U pRBCs
Hyponatremia -sodium 131. Pt was volume overloaded .Improving. Continue to follow
Other problems:
h/o pulmonary Aspergillus: since Apr 2023. cont Vfend.
Hyperkalemia, resolved
HLD
GERD: cont PPI
Anxiety/depression: Continue Trazodone PRN/Prozac/Depakote. Seroquel stopped by psych.
FULL/Lovenox
CW PT/OT eval
Anticipated Discharge: > 48 hours
Subjective/Interval History
-
Date of Service: February 03, 2024
Continues to feel better
Objective Data
-
Labs:
Laboratory Results
02/03/24
04:40
WBC 7.7
Hgb 8.0 L
Hct 24.4 L
Plt Count 383
Sodium 131 L
Potassium 4.0
Chloride 96 L
Carbon Dioxide 31 H
BUN 10
Creatinine 0.6
Glucose 90
Calcium 8.3 L
Total Bilirubin 0.4
AST 80 H
ALT 44 H
Alkaline Phosphatase 439 H
Vital Signs:
Vital Signs
Temp Pulse Resp BP Pulse Ox
98.2 F 92 18 157/86 99
02/03/24 07:40 02/03/24 10:51 02/03/24 07:40 02/03/24 10:51 02/03/24 07:40
I&O
02/02/24 02/03/24 02/04/24
06:59 06:59 06:59
Intake Total 2400 / 2400 2588 / 2588
Output Total 1350 / 1350 15 / 15
Balance 1050 / 1050 2573 / 2573
Review of Systems
-
Constitutional: Denies Fever
Respiratory: Denies Trouble Breathing
Cardiac: Denies Chest Pain
Abdomen/GI: Denies Nausea or Vomiting
Neuro: Denies Dizzy
Physical Exam
-
General: No Apparent Distress
HEENT: Moist Mucous Membranes
Respiratory: Non Labored Respirations and Decreased Breath Sounds (At left base); Negative Accessory Resp Muscle Use
Cardiac: Regular Rhythm
GI: Soft, Ostomy and Other (priscila drains)
Musculoskeletal: Negative No Edema
Neuro: AO x 3
Psych: Calm
Data Reviewed
-
Labs: Labs Reviewed by
[2024-02-03] MEDS: ROCEPHIN 2000 MG IV (12:00)
[2024-02-03] MEDS: STERILE WATER FOR INJECTION 20 ML IV (12:00)
--- NOTE | 2024-02-03 12:23 | CM ---
Reviewed the chart notes. PT recommending acute rehab once medically cleared. Precert will be required. Per ID note, at time if discharge, can transition to Augmentin and Cipro. CM continues to be available to patient/family and is monitoring
medical plan for needs at discharge.
Plan: Discharge to acute rehab when medically stable. Precert will be required.
--- NOTE | 2024-02-03 13:22 | W.PN.UPDATE ---
Update Note
Progress Note Update
patient seen chart reviewed. discussed w dr mukherjee. ms molina is in good spirits. she feels she is making steady progress despite many setbacks and is feeling much 'clearer in the head'. i thought she seemed to be exhibiting more td today but she
does not feel this is so. she is on the reduced 40 mg dose of ingrezza bc of the voriconazole. i was unable to locate more samples of ingezza for her...she will run out of the samples i was able to get around forth of february. cm and this technical document writer are
submitting forms to patient assistance to get it for her . patient is eager to get to [place] to begin rehab [facility]. no changes made in psych meds. continue as ordered.
--- NOTE | 2024-02-03 13:34 | W.PN.GS2 ---
Today's Communication / Plan
-
Cont current mgmt
Dispo planning
Assessment / Plan
-
Assessment: 53 yo female with recent aspergillus pneumonia on home O2 and on recent steroids presenting with complicated diverticulitis with large pelvic abscess, failed initial nonoperative management now status post Garcia's procedure.
12/25/2023 s/p IR drainage of abscess cx with 2 strep species and 2 species of e.coli noted
01/03/2024 s/p exploratory laparotomy with takedown of splenic flexure, creation end colostomy with omentectomy
01/13/2024 s/p IR drain post op perisplenic fluid collection 01/14/24 cx with enterococcus/e. coli.
Off TPN since 01/12, on LRD
01/24/2024 Left lower quadrant DAKOTA that was previously draining pus dislodged. CT repeated with recurrent pleural effusion and fluid collection to the left mid/lower abd. No extravasation of contrast from the rectal stump.
01/27/[address] chest tube place with TPA tx
AFVSS
Stable from surgical standpoint
Abd JPs unchanged - not much outputs
Rpt CT yesterday with no new fluid collections, prior collections nearly resolved
Plan:
Low residue diet and encourage PO intake/supplements; okay for family to bring in food/supplements from home.
Pain control as needed
Continue abx per ID recs, PO recs noted, will plan to convert upon DC
Ostomy teaching
PT/OT following, ?acute rehab upon discharge, dispo planning --> d/w CM, pt requesting [facility]
Continue drains to bulb suction, Flush drains daily. Plan to remove prior to DC
Daily dressing changes to midline incision, dry gauze packing to open area in middle of wound
DVT: SCDs as tolerated. Lovenox sq
Subjective Data
-
Date of Service: February 03, 2024
AFVSS, ambulating, pain controlled, sd diet
Objective Data
-
Intake and Output
02/02/24 02/03/24 02/04/24
06:59 06:59 06:59
Intake Total 2400 / 2400 2588 / 2588
Output Total 1350 / 1350
Balance 1050 / 1050 2573 / 2573
Intake:
Oral fluids 2160 / 2160 2460 / 2460
IV piggybacks 240 / 240 108 / 108
Amount instilled into Drain (
Total)
Left Lower Abdomen B
Left Upper Abdomen Placed in IR
Output:
CT Output (Total)
Left Lateral A
Drain Output (Total)
Left Lower Abdomen B
Left Upper Abdomen Placed in IR
Urine, Voided 1300 / 1300
Other:
Number of approximated SMALL 2 1
amounts of urine
Number of approximated MODERATE 3 2
amounts of urine
Number of approximated LARGE 2
amounts of urine
Vital Signs
Temp Pulse Resp BP Pulse Ox
98.2 F 92 18 157/86 99
02/03/24 07:40 02/03/24 10:51 02/03/24 07:40 02/03/24 10:51 02/03/24 07:40
Lab Results
02/03/24 04:40
02/03/24 04:40
Calcium 8.3 mg/dl (8.4-10.2) L 02/03/24 04:40
Phosphorus 4.0 mg/dl (2.5-4.5) 02/01/24 06:14
Magnesium 2.0 mg/dl (1.6-2.3) 02/01/24 06:14
Total Bilirubin 0.4 mg/dl (0.2-1.3) 02/03/24 04:40
AST 80 U/L (14-36) H 02/03/24 04:40
ALT 44 U/L (0-35) H 02/03/24 04:40
Alkaline Phosphatase 439 U/L (38-126) H 02/03/24 04:40
Total Protein 5.4 g/dl (6.3-8.2) L 02/03/24 04:40
Albumin 2.4 g/dl (3.5-5.0) L 02/03/24 04:40
Physical Exam
-
Gen: NAD
Abd: soft, approp ttp, incision cdi with central opening showing healthy granulation tissue, drains with scant serous output
[2024-02-03] MEDS: ATIVAN 0.5 MG PO (13:45)
--- NOTE | 2024-02-03 13:54 | W.PN.ID1 ---
Date of Service
Date of Service: February 03, 2024
Today's Communication
Transition to Augmentin 875mg po bid and cipro 500mg po bid through 02/11/24.
Assessment / Plan
Diverticular abscess
- s/p IR drainage (12/25/23)
- s/p exploratory lap, colostomy (01/03/24)
- s/p IR drainage perisplenic fluid (01/13/24)
- s/p IR drain placement to pelvic abscess (01/25/24)
Leukocytosis - resolved
Left pleural effusion
-S/p left chest tube placement, pleurolysis
- chest tube dc'd 02/01/24
- culture negative
BUE superficial thrombus
Hx Pulmonary aspergillosis; on Vfend as outpatient since 04/2023.
Recurrent diverticulitis
Anxiety/depression
Hx steroid-induced psychosis
GERD
Asthma
Recommendations:
01/24 pelvic abscess cx: Enterococcus raffinosus; E. coli -> now zosyn-resistant.
02/[address] a/p pelvic abscess resolved; LUQ very small stable fluid density.
Discontinue ampicillin/sulbactam and ceftriaxone.
Transition to Augmentin 875mg po bid and cipro 500mg po bid through 02/11/24.
Continue with voriconazole, present on admission.
Follow LFT's while on voriconazole.
Follow-up with her ID physician in [place].
����������������������������������������������������������
Chief Complaint
-: Other (Diverticulitis; diverticular abscess)
Subjective / Review of Systems
Feeling stronger.
Vital Signs / Physical Exam
Vital Signs
Vital Signs
Temp Pulse Resp BP Pulse Ox
98.2 F 92 18 157/86 99
02/03/24 07:40 02/03/24 10:51 02/03/24 07:40 02/03/24 10:51 02/03/24 07:40
Physical Exam
Constitutional: No Acute Distress and Comfortable
Gastrointestinal: Soft, Non Tender, Non Distended and Other
Neurological: AO x 3
Objective Data
Lab Data
Lab Results
02/03/24 04:40
02/03/24 04:40
PT 15.3 Sec (11.4-14.6) H 01/06/24 15:22
INR 1.21 01/06/24 15:22
APTT 35.6 Sec (23.4-35.0) H 01/06/24 15:22
Estimated Creat Clear 109 ml/min 02/03/24 04:40
Lactic Acid Cancelled 01/04/24 09:00
Total Bilirubin 0.4 mg/dl (0.2-1.3) 02/03/24 04:40
AST 80 U/L (14-36) H 02/03/24 04:40
ALT 44 U/L (0-35) H 02/03/24 04:40
Alkaline Phosphatase 439 U/L (38-126) H 02/03/24 04:40
Most recent labs reviewed.
Micro Results:
01/25/24 15:56 Wound Culture - Final
Abscess Escherichia coli
Enterococcus raffinosus
Gram Stain - Final
01/26/24 16:12 Body Fluid Culture - Final
Pleural Fluid No Growth After 72 Hours
Gram Stain - Final
01/20/24 14:44 Body Fluid Culture - Final
Pleural Fluid No Growth After 72 Hours
Gram Stain - Final
01/13/24 20:22 Blood Culture - Final
Blood/Venous No Growth - Final Report
01/13/24 18:56 Blood Culture - Final
Blood/Venous No Growth - Final Report
01/15/24 10:08 Respiratory Culture - Final
Sputum Gram Stain - Final
01/13/24 13:00 Wound Culture - Final
Abscess Enterococcus raffinosus
Escherichia coli
Gram Stain - Final
01/09/24 14:28 Nasal Screen MRSA (PCR) - Final
Nose MRSA not detected - performed by PCR methodology.
12/26/23 14:43 Blood Culture - Final
Blood/Venous No Growth - Final Report
12/26/23 12:59 Blood Culture - Final
Blood/Venous No Growth - Final Report
12/25/23 17:30 Wound Culture - Final
Abscess Escherichia coli
Escherichia coli#2
Streptococcus species
Group F Streptococcus
Gram Stain - Final
Imaging:
02/02/24 CT abdomen/pelvis with contrast: There is a pigtail type drainage catheter in a stable very small left subdiaphragmatic low-density fluid collection which contains a small amount of gas which is new when compared with the prior study. There
is a pigtail type drainage catheter in the anterior aspect of the left hemipelvis where there has been complete drainage of low density fluid collection in the interval since the 01/24/2024 examination
01/12/2024 CT abdomen/pelvis with contrast: There is a focal predominantly fluid collection in the left upper quadrant, which contains an anterior air-fluid level, compatible with an abscess. This has increased compared to examination of January 07,
2023. Of note, this collection is along the anterior margin of the spleen, without a well-defined plane between the collection and the spleen. There is also an irregular fluid collection within the left pelvis as described, and superimposed
infection of this collection cannot be excluded. There is a pigtail catheter in the left posterior pelvis, entering to the left gluteal region, with no evidence of a collection adjacent to this catheter. Subcutaneous edema, greater in both flanks.
Bilateral pleural effusions, left greater than right. Parenchymal opacity within both lower lobes, greater on the left compared to the right. This is most likely atelectasis, although underlying pneumonia difficult to completely exclude
radiographically.
01/03/2024 CT abdomen/pelvis: Markedly decreased posterior true pelvis abscess in comparison to prior pre-op chest drainage study with pigtail drainage catheter seen in the soft tissues of the left posterior true pelvis. Massively distended right
colon including cecum (cecum measuring up to 12 cm) with marked maximal colonic stool as well as gaseous distention of transverse and proximal descending colon, moderate stool with distention of the distal descending and sigmoid colon, limited in
evaluation without oral contrast opacification. Thickening Of the wall of the distal descending and proximal sigmoid colon which could represent colitis or diverticulitis. Partially obstructing distal colonic mass with inflammation cannot be
excluded. No free air. Please see full dictation for additional detail.
[2024-02-03] MEDS: APRESOLINE 5 MG IV (14:02)
--- NOTE | 2024-02-03 14:44 | WOUNDNOTE ---
ELISE LU NOTE: Patient states she never got the secure start kit to the address that her sister in law provided. Re enrolled with secure start via [employer] web site, used address provided by patient.
--- NOTE | 2024-02-03 16:52 | CON.MR ---
Consultation
Consultation Request
Date/Time Consultation Performed: 02/03/24 1645
Performing Provider: Dr. Jensen
Reason for Consultation: Weakness
Medical History
-
Chief Complaint: Weakness
History of Present Illness:
I had the opportunity to see Jesica Gonzalez in rehabilitation consulatation today. 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 Was
admitted on 12/24/23 after several days of worsening abdominal pain, fevers. Noted with abscess. Hospital course with long and protracted course, including abscess drainages by IR, multiple antibiotics, sepsis. Had massively distended right colon
on CT scan requiring OR on 01/02 for Exlap, takedown splenic flexure, end colostomy, omentectomy. Had multiple abdominal drains. Pleural effusions were present, and required thoracentesis, and was chest tube removed on 01/31. Hypoxic respiratory
insufficiency, now down to 2-3L of O2 and weaning. Did find Superficial thrombosis in the left basilic vein, PICC D/C'd on 01/19. On Lovenox 40 mg daily. Has been tolerating low residue diet per surgery.
Still with anemia, but leukocytosis resolved. Received 4U RBC's. Hyponatremia 131.
Patient was seen at bedside this afternoon, sitting up in bedside chair. States she is quite fatigued from activity and therapy today. Some flank and abdominal pain but states is 'not too bad'. Still some left sided neck pain, but denies any
radicular symptoms into the UE. No numbness or paresthesias in the UE or LE and no other leg pain. No nausea. Denies dizziness or lightheadedness. Some dyspnea with activity but using O2 and denies any currently at rest.
Was living alone in [place], but planning moving to [place]. Post-discharge will be going to mother's home in [place], with ramp access in rear of home, and states 1st floor set up available but is a 3 story home.
Past Medical History
Past Medical History: GERD, Hypercholesterolemia and Psychiatric (Depression/anxiety)
Family History
Family History: Reviewed & Not Pertinent
Social History
Functional Level Premorbidity:
Independent for all activities. Denies any previous use of cane or walker
Current Funct Level: Ambulation, Transfer, UE/LE Dressing:
Min A for transfers, ambulated 10' with RW with therapy today min A to contact guard.
Allergies / Home Medications
Allergy/AdvReac Type Severity Reaction Status Date / Time
No Known Allergies Allergy Unverified 12/24/23 15:13
�Medication �Instructions �Recorded �Confirmed �Last Taken �Type
acetaminophen 500 mg tablet 1,000 mg PO Q6H PRN mild pain/fever 12/24/23 12/24/23 Unknown History
albuterol sulfate 90 mcg/actuation 2 puff inhalation R Q4 PRN 12/24/23 12/24/23 Unknown History
aerosol inhaler sob/wheezing
aspirin 81 mg tablet,delayed 81 mg PO DAILY Blood Clot 12/24/23 12/24/23 3 Days Ago History
release Prevention/Tx ~12/21/23
benzonatate 100 mg capsule 100 mg PO TID PRN cough 12/24/23 12/24/23 Unknown History
cholecalciferol (vitamin D3) 25 25 mcg PO DAILY Supplement 12/24/23 12/24/23 12/24/23 History
mcg (1,000 unit) tablet (Vitamin
D3)
fluoxetine 40 mg capsule (Prozac) 40 mg PO DAILY Mental 12/24/23 12/24/23 12/24/23 History
Health/Anxiety
fluticasone furoate 200 1 inh inhalation R DAILY 12/24/23 12/24/23 12/24/23 History
mcg-vilanterol 25 mcg/dose Lung/Breathing Issues
inhalation powder (Breo Ellipta)
ibuprofen 200 mg capsule 200 mg PO Q6H PRN mild pain/fever 12/24/23 12/24/23 12/23/23 History
ipratropium 0.5 mg-albuterol 3 mg 3 ml inhalation R TID 05/12/24/23 12/24/23 History
(2.5 mg base)/3 mL nebulization Lung/Breathing Issues
soln
melatonin 3 mg tablet 3 mg PO HS PRN sleep 12/24/23 12/24/23 Unknown History
montelukast 10 mg tablet 10 mg PO QPM ASTHMA 12/24/23 12/24/23 12/23/23 History
pantoprazole 40 mg tablet,delayed 40 mg PO DAILY Gastrointestinal 12/24/23 12/24/23 12/24/23 History
release Issue
quetiapine 50 mg tablet (Seroquel) 50 mg PO BID Mental Health/Anxiety 12/24/23 12/24/23 12/24/23 History
trazodone 100 mg tablet 200 mg PO HS Mental Health/Anxiety 12/24/23 12/24/23 12/23/23 History
voriconazole 200 mg tablet 200 mg PO Q12H Infection 12/24/23 12/24/23 12/24/23 History
cefdinir 300 mg capsule 300 mg PO BID #28 caps 12/31/23 Unknown Rx
divalproex 500 mg tablet,extended 500 mg PO HS #30 tabs 12/31/23 Unknown Rx
release 24 hr
docusate sodium 100 mg capsule 100 mg PO BID #0 caps 12/31/23 Unknown Rx
metronidazole 500 mg tablet 500 mg PO TID #42 tabs 12/31/23 Unknown Rx
polyethylene glycol 3350 17 gram 17 g PO DAILY #0 ea 12/31/23 Unknown Rx
oral powder packet (HealthyLax)
sodium chloride 0.9 % (flush) 5 ml intra-catheter DAILY #2,500 mL 12/31/23 Unknown Rx
(Normal Saline Flush 0.9 %
injection syringe)
hydrocodone 5 mg-acetaminophen 325 1 tab PO Q8H PRN severe pain only 01/01/24 Unknown Rx
mg tablet #20 tabs
budesonide 0.5 mg/2 mL suspension 0.5 mg inhalation BIDPRN PRN sob 01/05/24 01/05/24 Unknown History
for nebulization
Review Of Systems
-
History Source: Patient
Constitutional: Reports Fatigue
Eye: Reports No Symptoms
EENT: Reports No Symptoms
Respiratory: Reports Trouble Breathing
Cardiac: Reports No Symptoms
Abdomen/GI: Reports Abdominal Pain
: Reports No Symptoms
Musculoskeletal: Reports Joint Pain, Muscle Pain and Muscle Stiffness
Integumentary: Reports No Symptoms
Neurological: Reports Weakness
Psych: Reports Anxiety and Depression
Endocrine: Reports No Symptoms
Hematologic/Lymphatic: Reports No Symptoms
Immunology: Reports No Symptoms
Physical Exam
Active Medications
Generic Name Dose Route Start Last Admin
Trade Name Freq PRN Reason Stop Dose Admin
Acetaminophen 1,000 mg 01/07/24 11:23 02/03/24 15:26
Acetaminophen 500 Mg Tablet PO 02/04/24 11:22 1,000 mg
Q6HPRN PRN Administration
mild pain
Amantadine HCl 100 mg 01/15/24 20:00 02/03/24 09:16
Amantadine 100 Mg Capsule PO 02/12/24 19:59 100 mg
BID CORY Administration
Amoxicillin/Clavulanate Potassium 1 tablet 02/03/24 20:00
Amoxicillin (875 Mg)/Clavulanate (125 Mg) Tablet PO 02/11/24 20:01
Q12 CORY
Benzonatate 100 mg 01/19/24 09:42 02/03/24 09:26
Benzonatate 100 Mg Capsule PO 02/16/24 09:41 100 mg
TIDPRN PRN Administration
cough
Cholecalciferol 25 mcg 01/20/24 08:00 02/03/24 09:17
Cholecalciferol (Vitamin D3) 25 Mcg Tablet (1,000 Units) PO 02/17/24 07:59 25 mcg
DAILY CORY Administration
Ciprofloxacin 500 mg 02/03/24 20:00
Ciprofloxacin 500 Mg Tablet PO 02/11/24 20:01
BID CORY
Enoxaparin Sodium 40 mg 01/09/24 18:00 02/02/24 17:00
Enoxaparin Sodium 40 Mg/0.4 Ml Syringe SC 02/06/24 17:59 40 mg
QPM CORY Administration
Fluoxetine HCl 20 mg 01/20/24 08:00 02/03/24 09:16
Fluoxetine 20 Mg Capsule PO 02/17/24 07:59 20 mg
DAILY CORY Administration
Folic Acid 1 mg 01/19/24 10:00 02/03/24 09:16
Folic Acid 1 Mg Tablet PO 02/16/24 09:59 1 mg
DAILY CORY Administration
Furosemide 40 mg 02/04/24 08:00
Furosemide 40 Mg Tablet PO 03/03/24 07:59
DAILY CORY
Hydralazine HCl 5 mg 02/02/24 18:30 02/03/24 14:02
Hydralazine 20 Mg/Ml Vial IV 03/01/24 18:29 5 mg
Q6HPRN PRN Administration
sbp>160 or dbp>100
Hydromorphone HCl 0.5 mg 01/17/24 12:04 01/31/24 03:36
Hydromorphone 0.5 Mg/0.5 Ml Syringe IV 02/12/24 12:03 0.5 mg
Q3HPRN PRN Administration
severe pain
Lorazepam 0.5 mg 01/29/24 12:00 02/03/24 13:45
Lorazepam 0.5 Mg Tablet PO 02/26/24 11:59 0.5 mg
[id number] PRN Administration
anxiety
Melatonin 5 mg 01/14/24 22:00 02/02/24 21:03
Melatonin 5 Mg Tablet PO 02/11/24 21:59 5 mg
HS CORY Administration
Montelukast Sodium 10 mg 12/25/23 18:00 02/02/24 17:00
Montelukast Sodium 10 Mg Tablet PO 02/19/24 17:59 10 mg
QPM CORY Administration
Valbenazine [ 0 unit 01/14/24 15:00 02/03/24 09:17
Ingrezza] 40mg PO 02/11/24 14:59 1 unit
Capsule - 1 Capsule DAILY CORY Administration
(40mg) Po Daily
Ondansetron HCl 4 mg 01/19/24 09:41 02/02/24 16:46
Ondansetron 4 Mg/2 Ml Vial IV 02/16/24 09:40 4 mg
Q6HPRN PRN Administration
NAUSEA/VOMITING
Oxycodone HCl 5 mg 01/16/24 11:54 02/03/24 13:42
Oxycodone 5 Mg Regular Release Tablet PO 02/12/24 11:53 5 mg
Q4HPRN PRN Administration
moderate pain
Pantoprazole Sodium 40 mg 02/03/24 08:00 02/03/24 09:16
Pantoprazole 40 Mg Delayed Release Tablet PO 03/02/24 07:59 40 mg
DAILY CORY Administration
Potassium Chloride 40 meq 01/22/24 14:34 02/03/24 09:16
Potassium Chloride 20 Meq Extended Release Tablet PO 02/18/24 07:59 40 meq
DAILY CORY Administration
Sodium Chloride 0 flush 12/24/23 22:00 01/31/24 17:01
Sodium Chloride 0.9% (Flush) Syringe IV 02/09/24 21:59 2 flush
PER PROTOCOL CORY Administration
Trazodone HCl 100 mg 01/07/24 13:54 01/28/24 21:15
Trazodone 100 Mg Tablet PO 02/04/24 13:53 100 mg
HSPRN PRN Administration
sleep
Voriconazole 200 mg 12/24/23 22:00 02/03/24 09:26
Voriconazole 200 Mg Tablet PO 02/24/24 21:59 200 mg
Q12H CORY Administration
Vital Signs
Temp Pulse Resp BP Pulse Ox
98.8 F 97 14 136/60 99
02/03/24 15:20 02/03/24 15:20 02/03/24 15:20 02/03/24 15:20 02/03/24 15:20
Height 5 ft 8 in
Actual Weight 75.206 kg
Body Mass Index (BMI) 25.2
Physical Exam
Physical Exam:
General Appearance/Observation: Well-developed, well-nourished individual in no apparent distress. Sitting up in bedside chair. Has O2 via NC in place but not dyspneic appearance.
Pain/Comfort Assessment: abdominal and flank pain 4/10, L neck pain 5/10
Mood/Affect: Appropriate
Eyes: Conjunctiva/Lids: normal Pupils: pupils equal round and reactive to light and Accommodation
Ears/Nose/Throat: oral mucosa moist, throat clear. Lips/Teeth/Gums: normal
Neck: No muscle spasm or tenderness
Cardiovascular: Heart: regular, no murmur
Pulses: dorsalis pedis 2+ bilaterally
Respiratory: Respiratory Effort/Chest Expansion: normal Auscultation: Clear to auscultation bilaterally
Gastrointestinal: Some tenderness at incision sites, no distension,soft. Incision C/D/I with some mild central opening
Extremities: Edema: None Cyanosis: None Trophic changes: None
Neurology Exam:
Orientation: Alert, Oriented to self, Time, Place
Memory: Intact immediately and at 3 minutes
Higher cortical function
Speech: Intact
Repetition: Intact
Comprehension: Intact
Two step command: Intact
Naming: Intact
Cranial Nerves: Intact and symmetric
Sensory:
Light touch: Intact in bilateral upper and lower extremities. No deficits in the digits or any asymmetry
Reflexes:
Biceps: 1+ bilaterally
Achilles: 1+ bilaterally
Babinski: Downgoing bilaterally
Clonus: None
Elizabet: Negative bilaterally
Cerebellar: Dysmetria/Ataxia: None
Musculoskeletal:
Motor: (Manual muscle scale 0-5)
Muscle SA EF WE EE FF FA HF KE DF EHL PF
Right 5 5 5 4 5 4 4 5 4+ 5 5
Left 5 5 5 5 5 4 4 5 4+ 5 5
Tone: Normal in all extremities
Range of Motion: Passively within normal limits in all extremities
Lab Results
02/03/24 04:40
02/03/24 04:40
WBC 7.7 10^3/uL (4.8-10.8) 02/03/24 04:40
Hgb 8.0 g/dL (12.0-16.0) L 02/03/24 04:40
Hct 24.4 % (37.0-47.0) L 02/03/24 04:40
MCV 90.0 fL (81.0-99.0) 02/03/24 04:40
Plt Count 383 10^3/uL (130-400) 02/03/24 04:40
PT 15.3 Sec (11.4-14.6) H 01/06/24 15:22
INR 1.21 01/06/24 15:22
Sodium 131 mmol/L (135-145) L 02/03/24 04:40
Potassium 4.0 mmol/L (3.5-5.1) 02/03/24 04:40
Chloride 96 mmol/L (98-107) L 02/03/24 04:40
Carbon Dioxide 31 mmol/L (22-30) H 02/03/24 04:40
BUN 10 mg/dl (7-17) 02/03/24 04:40
Creatinine 0.6 mg/dL (0.6-1.0) 02/03/24 04:40
eGFR > 60.00 02/03/24 04:40
Glucose 90 mg/dl (70-99) 02/03/24 04:40
Calcium 8.3 mg/dl (8.4-10.2) L 02/03/24 04:40
Phosphorus 4.0 mg/dl (2.5-4.5) 02/01/24 06:14
Magnesium 2.0 mg/dl (1.6-2.3) 02/01/24 06:14
Total Bilirubin 0.4 mg/dl (0.2-1.3) 02/03/24 04:40
AST 80 U/L (14-36) H 02/03/24 04:40
ALT 44 U/L (0-35) H 02/03/24 04:40
Alkaline Phosphatase 439 U/L (38-126) H 02/03/24 04:40
Total Protein 5.4 g/dl (6.3-8.2) L 02/03/24 04:40
Albumin 2.4 g/dl (3.5-5.0) L 02/03/24 04:40
Diagnostic Results
As per HPI.
Comorbidities / Impairment Group
Comorbidities:
Impairment Group:
Debility/deconditioning weakness
Assessment / Plan
Plan
Assessment:
53 year old female with weakness and significant deconditioning/debility due to prolonged hospitalization, prolonged bed rest, gait dysfunction, SOB due to complications from diverticulitis, abscesses s/p resection, colostomy, drainage, etc.
PM&R PT/OT to increase independence with ADLs, improve balance, coordination, endurance, strength, mobility, community reintegration, decreased burden of care on others and family education.
S/P Ex-lap with resection: Monitor incision, ostomy
-On oral Augmentin and Cipro now through 02/10 per ID. Recently changed to oral
-Leukocytosis resolved.
Anemia: Still low hemoglobin - down to 8.0 again today. Will need to continue to monitor - if still dropping might need further w/u for source of continued loss?
Hypocalcemia/hyponatremia: just monitoring
Dyskinetic movements/Restless Legs: Is on Amantadine
-Psychiatry and neurology started her on Ingrezza. Seems to be working well. Pt feeling improved from her movements standpoint. She also has been placed on Ativan per psychiatry.
-Stopped Requip and Neupro patch
HTN: On lasix, Hydralizine, monitor closely
L basilic vein thrombosis - superficial: Continue on lovenox
Insomnia: on trazodone, melatonin
Elevated LFT's: AST/ALT elevated but decreasing. Alk phos still elevated and a little worsening.
Psych: Anxiety/derpession baseline. Meds have been adjusted while here - now on fluoxetine, lorazepam.
Skin: monitor for pressure sores/rashes/lesions.
Pain: acetaminophen or oxycodone as needed.
Bowel: Colace and Senna, PRN bisacodyl.
Bladder: Time void, PVRs, PRN straight cath.
GI Prophylaxis: Pantoprazole
DVT Prophylaxis: Lovenox sq
Pulmonary: Incentive spirometry
Safety: Continue to reinforce assistance with all transfers.
Code Status: Full code
Dispo : Plan is for eventual discharge to mother[facility] home in [place].
Functional and Medical Goals: Modified Independent with ADL�s, ambulation, transfers
Summary
-
Things that must be addressed in Hospital prior to discharge:
1. Please continue bedside PT/OT.
2. Patient must be stable on oral pain medications.
3. Blood pressure must be less than 180 systolic and 100 diastolic for 24 hours before being stable for transfer to SNF/acute rehab.
4. Must be afebrile for 48 hours before transfer to SNF/acute rehab.
Discharge Destination: Could be good candidate for acute/intensive rehabilitation to improve strength, mobility, endurance. Patient has significant deconditioning/muscle disuse atrophy and weakness due to medical illness and prolonged
hospitalization course and prolonged bedrest. Would expect good recovery if able to tolerate the initial intensity and duration of therapies. Seems to be tolerating the bedside therapies but felt significantly fatigued today when I had seen her
after therapies.
Summary of recommendations:
- Discharge Destination: acute rehab when medically stable for discharge.
Will continue to follow patient.
Thank you for allowing me to care for your patient. Please contact me with any questions or concerns.
Data Reviewed
-
Labs: Labs Reviewed by me
Comments
-
This note was dictated using a voice recognition system. Please excuse any typographical errors from hot metal mixer operator helper. If you believe there are any discrepancies, please notify our office.
[2024-02-03] MEDS: LOVENOX 40 MG SC (18:18)
[2024-02-03] MEDS: ZOFRAN 4 MG IV (18:19)
[2024-02-03] MEDS: SINGULAIR 10 MG PO (18:19)
[2024-02-03] MEDS: AUGMENTIN 875 MG/125 MG 1 TABLET PO (21:37)
[2024-02-03] MEDS: MELATONIN 5 MG PO (21:37)
[2024-02-03] MEDS: CIPRO 500 MG PO (21:37)
[2024-02-03] MEDS: DILAUDID 0.5 MG IV (22:36)
[2024-02-04] MEDS: ATIVAN 0.5 MG PO ×2 (01:19→13:28)
[2024-02-04 05:54] VITALS: BMI 24.8
[2024-02-04 07:45] VITALS: BP 148/81
--- NOTE | 2024-02-04 08:03 | W.PN.GS2 ---
Today's Communication / Plan
-
-- No changes from surgical perspective
Assessment / Plan
-
Assessment: 53 yo female with recent aspergillus pneumonia on home O2 and on recent steroids presenting with complicated diverticulitis with large pelvic abscess, failed initial nonoperative management now status post Garcia's procedure.
12/25/2023 s/p IR drainage of abscess cx with 2 strep species and 2 species of e.coli noted
01/03/2024 s/p exploratory laparotomy with takedown of splenic flexure, creation end colostomy with omentectomy
01/13/2024 s/p IR drain post op perisplenic fluid collection 01/14/24 cx with enterococcus/e. coli.
Off TPN since 01/12, on LRD
01/24/2024 Left lower quadrant [place] that was previously draining pus dislodged. CT repeated with recurrent pleural effusion and fluid collection to the left mid/lower abd. No extravasation of contrast from the rectal stump.
01/27/[address] chest tube place with TPA tx
AFVSS
Stable from surgical standpoint
Abd JPs unchanged - not much outputs
Rpt CT yesterday with no new fluid collections, prior collections nearly resolved
Plan:
Low residue diet and encourage PO intake/supplements; okay for family to bring in food/supplements from home.
Pain control as needed
Continue abx per ID recs, PO recs noted, will plan to convert upon DC
Ostomy teaching
PT/OT following, ?acute rehab upon discharge, dispo planning --> d/w CM, pt requesting [facility]
Continue drains to bulb suction, Flush drains daily. Plan to remove prior to DC
Daily dressing changes to midline incision, dry gauze packing to open area in middle of wound
DVT: SCDs as tolerated. Lovenox sq
Subjective Data
-
Date of Service: February 04, 2024
Reports LUQ abdominal discomfort as well as a headache. No nausea or vomiting. No fevers.
Objective Data
-
Intake and Output
02/03/24 02/04/24 02/05/24
06:59 06:59 06:59
Intake Total 2588 / 2588 1979
Output Total 0 / 0
Balance 2573 / 2573 1979
Intake:
Oral fluids 2460 / 2460 1979
IV piggybacks 108 / 108
Amount instilled into Drain (
Total)
Left Lower Abdomen B 10 10
Left Upper Abdomen Placed in IR
Output:
Drain Output (Total) 0 / 0
Left Lower Abdomen B 5 0 / 0
Left Upper Abdomen Placed in IR 10 0 / 0
Other:
Number of approximated SMALL 1
amounts of urine
Number of approximated MODERATE 2 4
amounts of urine
Vital Signs
Temp Pulse Resp BP Pulse Ox
98.2 F 91 20 158/86 99
02/03/24 23:15 02/03/24 23:15 02/03/24 23:15 02/03/24 23:35 02/03/24 23:15
Lab Results
02/03/24 04:40
02/03/24 04:40
Calcium 8.3 mg/dl (8.4-10.2) L 02/03/24 04:40
Phosphorus 4.0 mg/dl (2.5-4.5) 02/01/24 06:14
Magnesium 2.0 mg/dl (1.6-2.3) 02/01/24 06:14
Total Bilirubin 0.4 mg/dl (0.2-1.3) 02/03/24 04:40
AST 80 U/L (14-36) H 02/03/24 04:40
ALT 44 U/L (0-35) H 02/03/24 04:40
Alkaline Phosphatase 439 U/L (38-126) H 02/03/24 04:40
Total Protein 5.4 g/dl (6.3-8.2) L 02/03/24 04:40
Albumin 2.4 g/dl (3.5-5.0) L 02/03/24 04:40
Physical Exam
-
Gen: NAD
Abd: soft, approp ttp, incision cdi with central opening showing healthy granulation tissue, drains with scant serous output, ostomy viable with flatus and stool
--- NOTE | 2024-02-04 09:27 | CM ---
Reviewed the chart notes and spoke with the patient at the bedside. Dr. Glover obtained from [employer] a form for assistance with cost of the medication Ingrezza. completed prescription section and CM completed insurance information.
Patient was asked to complete section on personal income. Patient has yet to complete and stated 'I have contacted my insurance company and I am waiting for them to call back'. Form can not be faxed to assistance department until completed.
PATTI spoke with Marlena Perez admissions liaison with [facility]. Per Marlena, the patient needs to be on oral medications only and her BP needs to be stabilized for 24 hrs before they would be able to consider for admission. CM continues to be available
to patient/family and is monitoring medical plan for needs at discharge.
Plan: Discharge to acute rehab when medically stable. Precert will be required.
[2024-02-04] MEDS: ROXICODONE 5 MG PO ×2 (09:36→20:44)
[2024-02-04] MEDS: SYMMETREL 100 MG PO ×2 (09:36→20:36)
[2024-02-04] MEDS: KCL 40 MEQ PO (09:37)
[2024-02-04] MEDS: VITAMIN D3 (cholecalciferol) 25 MCG PO (09:37)
[2024-02-04] MEDS: VFEND 200 MG PO ×2 (09:37→21:45)
[2024-02-04] MEDS: AUGMENTIN 875 MG/125 MG 1 TABLET PO ×2 (09:37→20:36)
[2024-02-04] MEDS: PROZAC 20 MG PO (09:37)
[2024-02-04] MEDS: LASIX 40 MG PO (09:38)
[2024-02-04] MEDS: FOLVITE 1 MG PO (09:38)
[2024-02-04] MEDS: PROTONIX 40 MG PO (09:38)
[2024-02-04] MEDS: CIPRO 500 MG PO ×2 (09:38→20:36)
[2024-02-04] MEDS: NON-FORMULARY ITEM 1 UNIT PO (09:40)
[2024-02-04] MEDS: ZOFRAN 4 MG PO (11:48)
--- NOTE | 2024-02-04 14:18 | W.PN.UPDATE ---
Update Note
Progress Note Update
patient seen chat reviewed. spoke with tolu, dr riley (via [facility]) and dr mukherjee. patient continues to make progress athough she is anxious about the transition to acute rehab. she was hoping to go to [place] which may not be possible given her
insurance. i did reassure her that there were good acute rehabs in [place] as well. she is cutting back on pain prn's at this point. she is very satisfied with her care here thus far and we reviewed the last year or two of her medical travails. patient
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 psychosis appears to me to be completely resolved. i
spoke w dr riley about length of rx for aspergillosis w noelleh will still be some time. i am trying to get her a supply of ingrezza through the drug [employer] and cm working on [employer] [facility]. no changes made in psych meds.
--- NOTE | 2024-02-04 15:01 | W.PN.HOSP.TC ---
Today's Communication/Plan
-
DC
Assessment / Plan
Assessment / Plan
A/P:
Sigmoid diverticulitis with abscess:
-h/o diverticulosis/diverticulitis
-s/p abscess drainage 12/25/23 by IR. E. coli resistant to Zosyn from 01/24 and also Enterococcus. E. coli pansensitive and Enterococcus Raffinosus on 01/12 wound cultures. Pleural fluid cultures pending but no growth.
-with findings of massively distended right colon including the cecum on CT scan of the abdomen pelvis on January 03, 2024 the patient was taken to the OR for Exploratory laparotomy, takedown splenic flexure, creation end colostomy, omentectomy
-Continue antibiotics per ID
-Status post abdominal drains on 01/12 and 01/24.
-Follow-up repeat blood cultures for recurrent fevers since 01/12 but so far no growth but initial wound cultures growing E. coli and Enterococcus Raffinosus
- Rpt CT A/P from 01/23 noted -cw drain per surgery/IR
-Surgery following
-Low residue diet per surgery
- Had repeat CT A/P 02/01 - no surgical indications indicated.cw drains, abx.
Left Pleural effusion, complicated loculated effusion(suspicion for culture-negative empyema):
Status post chest tube on 01/26 which is now removed on 01/31
Pleural fluid cultures no growth.
Pulmonary following
Prior to today:
Left pleural effusion s/p thoracentesis 01/25 (exudative)
Acute hypoxic respiratory insufficiency:
Now off of high flow oxygen for increased PEEP--> now down to 2- L of oxygen. Wean as tolerated.
Continue to titrate oxygen as able.
Pulmonary following-on oxygen and chest tube in place
Cardiology signed off-on oral diuresis
Continue incentive spirometry
Continue Acapella
Continue bronchodilators
Aspiration precautions
Leukocytosis:
Normalized
Afebrile
Continue current antibiotics per ID
Continue to trend.
Abnormal EKG-patient now has poor R waves in the anterior leads and also T wave inversion. Echo also showed low normal EF of 50%. Appreciate cardiology input.
Acute CHF with preserved EF - Signifiant improvement with IV lasix . Weight at her baseline. Decreased the dose of Lasix. Normally not on home Lasix. If continued drop in wt will make lasix prn.
Dyskinetic movements/Restless Legs:
-Psychiatry and neurology have decided to start her on Ingrezza. Seems to be working well. Pt feeling improved from her movements standpoint. She also has been placed on Ativan per psychiatry.
-Also started on amantadine.
-Stopped Requip and Neupro patch
-Started melatonin
-Remains on trazodone 100 mg as needed, Flexeril as needed, Dilaudid as needed; psych discussed with outpatient psychiatrist who felt she did not have manic episode but patient decided to continue Depakote. Depakote now discontinued .
-Seroquel stopped as Vfend increases serum concentration of Seroquel.
-Avoid antidopaminergic agents as much as possible
Superficial thrombosis in the left basilic vein (no DVT)
On Lovenox 40 mg daily for prevention DVT and will be enough for above plus local care.
PICC dced 01/19
Acute blood loss anemia:
-Aim to keep H&H more than 7. Follow blood work. Hemoglobin 8.0
-s/p 4U pRBCs
Hyponatremia -sodium 131. Pt was volume overloaded .Improving. Continue to follow
Other problems:
h/o pulmonary Aspergillus: since Apr 2023. cont Vfend.
Hyperkalemia, resolved
HLD
GERD: cont PPI
Anxiety/depression: Continue Trazodone PRN/Prozac/Depakote. Seroquel stopped by psych.
FULL/Lovenox
CW PT/OT eval
Medically stable for DC
DC to acute rehab when bed available
Anticipated Discharge: Today
Subjective/Interval History
-
Date of Service: February 04, 2024
Feels better
Eager to get out to acute rehab
Objective Data
-
Vital Signs:
Vital Signs
Temp Pulse Resp BP Pulse Ox
98.6 F 84 16 148/81 96
02/04/24 07:45 02/04/24 09:38 02/04/24 07:45 02/04/24 09:38 02/04/24 07:45
I&O
02/03/24 02/04/24 02/05/24
06:59 06:59 06:59
Intake Total 2588 / 2588 1979
Output Total 15 0 / 0
Balance 2573 / 2573 1979
Review of Systems
-
Constitutional: Denies Fever
Respiratory: Denies Trouble Breathing
Cardiac: Denies Chest Pain
Abdomen/GI: Denies Nausea or Vomiting
Neuro: Denies Dizzy
Physical Exam
-
General: No Apparent Distress
HEENT: Moist Mucous Membranes
Respiratory: Non Labored Respirations and Accessory Resp Muscle Use
Cardiac: Regular Rhythm and S1/S2
GI: Soft
Neuro: AO x 3
[2024-02-04 15:27] VITALS: BP 134/77
[2024-02-04] MEDS: LOVENOX 40 MG SC (17:45)
[2024-02-04] MEDS: SINGULAIR 10 MG PO (17:45)
[2024-02-04] MEDS: TYLENOL 1000 MG PO (17:57)
--- NOTE | 2024-02-04 18:07 | PTCARENOTE ---
Pt requesting neb treatment reached out to Dr. Sanz.
[2024-02-04] MEDS: MELATONIN 5 MG PO (21:45)
[2024-02-04 23:41] VITALS: BP 148/78
[2024-02-05] MEDS: ATIVAN 0.5 MG PO ×2 (02:07→16:01)
[2024-02-05] MEDS: TESSALON PERLES 100 MG PO ×4 (02:09→23:26)
[2024-02-05 06:00] VITALS: BMI 24.4
[2024-02-05 07:18] LABS: Blood Urea Nitrogen 5 mg/dl (7-17); Calcium 8.6 mg/dl (8.4-10.2); Carbon Dioxide 30 mmol/L (22-30); Chloride 98 mmol/L (98-107); Estimated Creatinine Clearance 109 ml/min; Glucose 94 mg/dl (70-99); Potassium 4.1 mmol/L (3.5-5.1); Sodium 132 mmol/L (135-145); eGFR > 60.00
[2024-02-05 07:40] VITALS: BP 149/84
[2024-02-05] MEDS: TYLENOL 1000 MG PO ×2 (09:23→15:47)
[2024-02-05] MEDS: KCL 40 MEQ PO (09:24)
[2024-02-05] MEDS: CIPRO 500 MG PO ×2 (09:24→20:04)
[2024-02-05] MEDS: AUGMENTIN 875 MG/125 MG 1 TABLET PO ×2 (09:24→20:04)
[2024-02-05] MEDS: PROTONIX 40 MG PO (09:24)
[2024-02-05] MEDS: SYMMETREL 100 MG PO ×2 (09:24→20:04)
[2024-02-05] MEDS: PROZAC 20 MG PO (09:24)
[2024-02-05] MEDS: NON-FORMULARY ITEM 1 UNIT PO (09:25)
[2024-02-05] MEDS: LASIX 40 MG PO (09:25)
[2024-02-05] MEDS: FOLVITE 1 MG PO (09:25)
[2024-02-05] MEDS: VITAMIN D3 (cholecalciferol) 25 MCG PO (09:25)
[2024-02-05] MEDS: VFEND 200 MG PO ×2 (09:27→21:17)
[2024-02-05 11:27] VITALS: BP 138/87; PULSE 87; O2SAT 98
[2024-02-05 11:32] VITALS: BP 138/87; PULSE 87; PULSE 98; O2SAT 99
--- NOTE | 2024-02-05 11:39 | W.PN.UPDATE ---
Addendum entered and electronically signed by Octavia Glover MD 02/05/24 16:17:
finally reached her out pt psych dr de leon's [facility] (was on hold earlier today) and left message to see if we can get some samples from him for mikey left my cell.
Original Note:
Update Note
Progress Note Update
patient seen chart reviewed. spoke w case management as well as dr mukherjee. patient is dismayed that she will have to go to rehab in [place] when she had her heart set on [place]. reassured her that there are good rehabs in [place] as well as [place] and her motivation
is the lynn factor here not the place necessarily. she continues to look physically stronger and says she feels more like herself. i continue to try to get ingrezza for her. i had our [facility] pharmacist call her insurance and that does not look
promising. that pharmacist is also chasing down the rep for me to get more samples. my last hope is a call i made to her out pt psychiatrist dr de leon to see if he has any 40 mg samples. psych will continue to follow
--- NOTE | 2024-02-05 11:43 | W.PN.GS2 ---
Addendum entered and electronically signed by Ricki Ernst MD 02/05/24 12:18:
I saw and examined the patient.
The Superintendent Sales's note was reviewed and I agree with the note.
Comment: [facility] is pts first choice but not an option due to out of state insurance. Exam unchanged. She continues to recover. Plan to ask IR to DC drains prior to DC, once approp rehab facility has been approved.
Original Note:
Today's Communication / Plan
-
Incisional care, DAKOTA's to be removed prior to d/c
Assessment / Plan
-
Assessment: 53 yo female with recent aspergillus pneumonia on home O2 and on recent steroids presenting with complicated diverticulitis with large pelvic abscess, failed initial nonoperative management now status post Garcia's procedure.
12/25/2023 s/p IR drainage of abscess cx with 2 strep species and 2 species of e.coli noted
01/03/2024 s/p exploratory laparotomy with takedown of splenic flexure, creation end colostomy with omentectomy
01/13/2024 s/p IR drain post op perisplenic fluid collection 01/14/24 cx with enterococcus/e. coli.
Off TPN since 01/12, on LRD
01/24/2024 Left lower quadrant DAKOTA that was previously draining pus dislodged. CT repeated with recurrent pleural effusion and fluid collection to the left mid/lower abd. No extravasation of contrast from the rectal stump.
01/27/[address] chest tube place with TPA tx
02/02/24 CT A/P 02/01 - no new fluid collections, prior collections nearly resolved
AFVSS
Stable from surgical standpoint
Abd JPs unchanged - not much outputs
Plan: Low residue diet and encourage PO intake/supplements; okay for family to bring in food/supplements from home.
Pain control as needed
Continue abx per ID recs
Ostomy teaching
PT/OT following, ?acute rehab upon discharge, dispo planning --> d/w CM, pt requesting [facility], declined by insurance will need to look for facilities in [place]
Continue drains to bulb suction, Flush drains daily. Plan to remove prior to DC
Daily dressing changes to midline incision, dry gauze packing to open area in middle of wound
DVT: SCDs as tolerated. Lovenox sq
Subjective Data
-
Date of Service: February 05, 2024
Patient seen and examined at bedside. Denies n/v. Tolerating diet. Appetite improving.
Objective Data
-
Intake and Output
02/04/24 02/05/24 02/06/24
06:59 06:59 06:59
Intake Total 1979 2600 / 2600
Output Total 0 / 0
Balance 1979 2580 / 2580
Intake:
Oral fluids 1979 2580 / 2580
Amount instilled into Drain (
Total)
Left Lower Abdomen B 10 / 10
Left Upper Abdomen Placed in IR 10 / 10
Output:
Drain Output (Total) 0 / 0 20 / 20
Left Lower Abdomen B 0 / 0 10 / 10
Left Upper Abdomen Placed in IR 0 / 0 10 / 10
Other:
Number of approximated SMALL 1
amounts of urine
Number of approximated MODERATE 4 4
amounts of urine
Number of unmeasured liquid
stools
Colostomy 3
Vital Signs
Temp Pulse Resp BP Pulse Ox
98.7 F 89 16 149/84 97
02/05/24 07:40 02/05/24 09:25 02/05/24 07:40 02/05/24 09:25 02/05/24 07:40
Lab Results
02/03/24 04:40
02/05/24 06:33
Calcium 8.6 mg/dl (8.4-10.2) 02/05/24 06:33
Phosphorus 4.0 mg/dl (2.5-4.5) 02/01/24 06:14
Magnesium 2.0 mg/dl (1.6-2.3) 02/01/24 06:14
Total Bilirubin 0.4 mg/dl (0.2-1.3) 02/03/24 04:40
AST 80 U/L (14-36) H 02/03/24 04:40
ALT 44 U/L (0-35) H 02/03/24 04:40
Alkaline Phosphatase 439 U/L (38-126) H 02/03/24 04:40
Total Protein 5.4 g/dl (6.3-8.2) L 02/03/24 04:40
Albumin 2.4 g/dl (3.5-5.0) L 02/03/24 04:40
Physical Exam
-
Gen: NAD
Abd: soft, approp ttp, incision cdi with central opening showing healthy granulation tissue, drains with scant serous output, ostomy viable with flatus and stool
--- NOTE | 2024-02-05 12:26 | CM ---
Addendum entered by Tisha Castellon RN 02/05/24 14:52:
Message left for Christine [facility]'s director of marketing communications.
Addendum entered by Tisha Castellon RN 02/05/24 13:28:
Additional clinicals sent to [facility] as requested via [facility].
Original Note:
[facility] unable to accept patient due to her insurance capitates her to [place] facilities. Additional referrals sent to [place] acute rehabs. Thus far, two have declined due to feeling that the patient does not meet criteria for acute rehab. Patient and
attending updated.
--- NOTE | 2024-02-05 13:58 | W.PN.HOSP.TC ---
Today's Communication/Plan
-
Ongoing disposition efforts
DC Lasix
Assessment / Plan
Assessment / Plan
A/P:
Sigmoid diverticulitis with abscess:
-h/o diverticulosis/diverticulitis
-s/p abscess drainage 12/25/23 by IR. E. coli resistant to Zosyn from 01/24 and also Enterococcus. E. coli pansensitive and Enterococcus Raffinosus on 01/12 wound cultures. Pleural fluid cultures pending but no growth.
-with findings of massively distended right colon including the cecum on CT scan of the abdomen pelvis on January 03, 2024 the patient was taken to the OR for Exploratory laparotomy, takedown splenic flexure, creation end colostomy, omentectomy
-Continue antibiotics per ID
-Status post abdominal drains on 01/12 and 01/24.
-Follow-up repeat blood cultures for recurrent fevers since 01/12 but so far no growth but initial wound cultures growing E. coli and Enterococcus Raffinosus
- Rpt CT A/P from 01/23 noted -cw drain per surgery/IR
-Surgery following
-Low residue diet per surgery
- Had repeat CT A/P 02/01 - no surgical indications indicated.cw drains, abx.
Left Pleural effusion, complicated loculated effusion(suspicion for culture-negative empyema):
Status post chest tube on 01/26 which is now removed on 01/31
Pleural fluid cultures no growth.
Pulmonary following
Prior to today:
Left pleural effusion s/p thoracentesis 01/25 (exudative)
Acute hypoxic respiratory insufficiency:
Now off of high flow oxygen for increased PEEP--> now down to 2.5 L of oxygen. Wean as tolerated.
Continue to titrate oxygen as able.
Pulmonary following-on oxygen and chest tube in place
Cardiology signed off-on oral diuresis
Continue incentive spirometry
Continue Acapella
Continue bronchodilators
Aspiration precautions
Leukocytosis:
Normalized
Afebrile
Continue current antibiotics per ID
Continue to trend.
Abnormal EKG-patient now has poor R waves in the anterior leads and also T wave inversion. Echo also showed low normal EF of 50%. Appreciate cardiology input.
Acute CHF with preserved EF - Significant improvement with IV lasix . Weight is below baseline. Normally not on home Lasix. Change to lasix prn based on weight.
Dyskinetic movements/Restless Legs:
-Psychiatry and neurology have decided to start her on Ingrezza. Seems to be working well. Pt feeling improved from her movements standpoint. She also has been placed on Ativan per psychiatry.
-Also started on amantadine.
-Stopped Requip and Neupro patch
-Started melatonin
-Remains on trazodone 100 mg as needed, Flexeril as needed, Dilaudid as needed; psych discussed with outpatient psychiatrist who felt she did not have manic episode but patient decided to continue Depakote. Depakote now discontinued .
-Seroquel stopped as Vfend increases serum concentration of Seroquel.
-Avoid antidopaminergic agents as much as possible
Superficial thrombosis in the left basilic vein (no DVT)
On Lovenox 40 mg daily for prevention DVT and will be enough for above plus local care.
PICC dced 01/19
Acute blood loss anemia:
-Aim to keep H&H more than 7. Follow blood work. Hemoglobin 8.0
-s/p 4U pRBCs
Hyponatremia -sodium 132. Pt was volume overloaded .Improving. Continue to follow
Other problems:
h/o pulmonary Aspergillus: since Apr 2023. cont Vfend.
Hyperkalemia, resolved
HLD
GERD: cont PPI
Anxiety/depression: Continue Trazodone PRN/Prozac/Depakote. Seroquel stopped by psych.
FULL/Lovenox
CW PT/OT eval
Medically stable for DC
DC to acute rehab when bed available
Anticipated Discharge: Within 24 hours
Subjective/Interval History
-
Date of Service: February 05, 2024
No new complaints
Feels ok
Objective Data
-
Labs:
Laboratory Results
02/05/24
06:33
Sodium 132 L
Potassium 4.1
Chloride 98
Carbon Dioxide 30
BUN 5 L
Creatinine 0.5 L
Glucose 94
Calcium 8.6
Vital Signs:
Vital Signs
Temp Pulse Resp BP Pulse Ox
98.7 F 89 16 149/84 97
02/05/24 07:40 02/05/24 09:25 02/05/24 07:40 02/05/24 09:25 02/05/24 07:40
I&O
02/04/24 02/05/24 02/06/24
06:59 06:59 06:59
Intake Total 1979 2600 / 2600 15 15
Output Total 0 / 0
Balance 1979 2580 / 2580
Review of Systems
-
Constitutional: Denies Fever
Respiratory: Denies Trouble Breathing (at rest)
Cardiac: Denies Chest Pain
Abdomen/GI: Denies Abdominal Pain, Nausea or Vomiting
Neuro: Denies Dizzy
Physical Exam
-
General: No Apparent Distress
HEENT: Moist Mucous Membranes
Respiratory: Decreased Breath Sounds (lt base)
Cardiac: Regular Rhythm and S1/S2
GI: Soft and Ostomy
Neuro: AO x 3; Negative Tremors
Psych: Calm; Negative Anxious
Data Reviewed
-
Labs: Labs Reviewed by me
--- NOTE | 2024-02-05 14:51 | WOUNDNOTE ---
WON RN NOTE: Appliance changed today. Patient states she has been empting pouch. No leaking note and peristomal skin intact. Stoma is pink and budded, os is pointing down and in divot of soft abdomen. Convex wafer with Kelly seal and drainable pouch
applied. Reviewed teaching regarding emptying, skin care, and changing pouch. Answered all questions and all supplies at bedside. Spoke to [facility] who will change dressing on surgical sites. Support and encouragement given. Awaiting transfer to
rehab.
[2024-02-05 15:35] VITALS: BP 139/80
[2024-02-05] MEDS: SINGULAIR 10 MG PO (18:07)
[2024-02-05] MEDS: LOVENOX 40 MG SC (18:08)
[2024-02-05] MEDS: ROXICODONE 5 MG PO (20:10)
[2024-02-05] MEDS: MELATONIN 5 MG PO (21:17)
[2024-02-05 23:10] VITALS: BP 147/73
[2024-02-05] MEDS: DESYREL 100 MG PO (23:26)
[2024-02-06] MEDS: TYLENOL 1000 MG PO ×3 (01:31→16:25)
[2024-02-06 06:00] VITALS: BMI 24.2
[2024-02-06 07:50] VITALS: BP 151/81
[2024-02-06] MEDS: CIPRO 500 MG PO ×2 (08:38→19:38)
[2024-02-06] MEDS: PROTONIX 40 MG PO (08:38)
[2024-02-06] MEDS: SYMMETREL 100 MG PO ×2 (08:38→19:38)
[2024-02-06] MEDS: LASIX PO ×2 (08:38→08:55)
[2024-02-06] MEDS: AUGMENTIN 875 MG/125 MG 1 TABLET PO ×2 (08:38→19:38)
[2024-02-06] MEDS: PROZAC 20 MG PO (08:39)
[2024-02-06] MEDS: VITAMIN D3 (cholecalciferol) 25 MCG PO (08:39)
[2024-02-06] MEDS: FOLVITE 1 MG PO (08:39)
[2024-02-06] MEDS: KCL 40 MEQ PO (08:39)
[2024-02-06] MEDS: NON-FORMULARY ITEM 1 UNIT PO (08:40)
[2024-02-06] MEDS: VFEND 200 MG PO ×2 (10:28→21:53)
--- NOTE | 2024-02-06 11:45 | W.PN.HOSP.TC ---
Today's Communication/Plan
-
Ongoing dispo efforts
Assessment / Plan
Assessment / Plan
A/P:
Sigmoid diverticulitis with abscess:
-h/o diverticulosis/diverticulitis
-s/p abscess drainage 12/25/23 by IR. E. coli resistant to Zosyn from 01/24 and also Enterococcus. E. coli pansensitive and Enterococcus Raffinosus on 01/12 wound cultures. Pleural fluid cultures pending but no growth.
-with findings of massively distended right colon including the cecum on CT scan of the abdomen pelvis on January 03, 2024 the patient was taken to the OR for Exploratory laparotomy, takedown splenic flexure, creation end colostomy, omentectomy
-Continue antibiotics per ID
-Status post abdominal drains on 01/12 and 01/24.
-Follow-up repeat blood cultures for recurrent fevers since 01/12 but so far no growth but initial wound cultures growing E. coli and Enterococcus Raffinosus
- Rpt CT A/P from 01/23 noted -cw drain per surgery/IR
-Surgery following
-Low residue diet per surgery
- Had repeat CT A/P 02/01 - no surgical indications indicated.cw drains, abx. Drains may come off prior to dc per surgery.
Left Pleural effusion, complicated loculated effusion(suspicion for culture-negative empyema):
Status post chest tube on 01/26 which is now removed on 01/31
Pleural fluid cultures no growth.
Pulmonary following
Prior to today:
Left pleural effusion s/p thoracentesis 01/25 (exudative)
Acute hypoxic respiratory insufficiency:
Now off of high flow oxygen for increased PEEP--> now down to 2.5 L of oxygen. Wean as tolerated.
Continue to titrate oxygen as able.
Pulmonary following-on oxygen and chest tube in place
Cardiology signed off-on oral diuresis
Continue incentive spirometry
Continue Acapella
Continue bronchodilators
Aspiration precautions
Leukocytosis:
Normalized
Afebrile
Continue current antibiotics per ID
Continue to trend.
Abnormal EKG-patient now has poor R waves in the anterior leads and also T wave inversion. Echo also showed low normal EF of 50%. Appreciate cardiology input.
Acute CHF with preserved EF - Significant improvement with IV lasix . Weight is below baseline. Normally not on home Lasix. Change to lasix prn based on weight.
Dyskinetic movements/Restless Legs:
-Psychiatry and neurology have decided to start her on Ingrezza. Seems to be working well. Pt feeling improved from her movements standpoint. She also has been placed on Ativan per psychiatry.
-Also started on amantadine.
-Stopped Requip and Neupro patch
-Started melatonin
-Remains on trazodone 100 mg as needed, Flexeril as needed, Dilaudid as needed; psych discussed with outpatient psychiatrist who felt she did not have manic episode but patient decided to continue Depakote. Depakote now discontinued .
-Seroquel stopped as Vfend increases serum concentration of Seroquel.
-Avoid antidopaminergic agents as much as possible
Superficial thrombosis in the left basilic vein (no DVT)
On Lovenox 40 mg daily for prevention DVT and will be enough for above plus local care.
PICC dced 01/19
Acute blood loss anemia:
-Aim to keep H&H more than 7. Follow blood work. Hemoglobin 8.0
-s/p 4U pRBCs
Hyponatremia -sodium 132. Pt was volume overloaded .Improving. Continue to follow
Other problems:
h/o pulmonary Aspergillus: since Apr 2023. cont Vfend.
Hyperkalemia, resolved
HLD
GERD: cont PPI
Anxiety/depression: Continue Trazodone PRN/Prozac/Depakote. Seroquel stopped by psych.
FULL/Lovenox
CW PT/OT eval
Medically stable for DC
DC to acute rehab when bed available
Anticipated Discharge: 24 - 48 hours
Subjective/Interval History
-
Date of Service: February 06, 2024
Bit of cough and wheezing today but not SOB.
No CP.
No N/V.
Objective Data
-
Vital Signs:
Vital Signs
Temp Pulse Resp BP Pulse Ox
99.1 F 98 18 151/81 97
02/06/24 07:50 02/06/24 07:50 02/06/24 07:50 02/06/24 07:50 02/06/24 08:00
I&O
02/05/24 02/06/24 02/07/24
06:59 06:59 06:59
Intake Total 2600 / 2600 4015 / 4015
Output Total
Balance 2580 / 2580 4002 / 4002
Review of Systems
-
Constitutional: Denies Fever
EENT: Denies Sore Throat
Abdomen/GI: Denies Abdominal Pain
Neuro: Denies Dizzy
Physical Exam
-
General: No Apparent Distress
HEENT: Moist Mucous Membranes
Respiratory: Wheezes (Few in right base ) and Non Labored Respirations; Negative Accessory Resp Muscle Use
Cardiac: Regular Rhythm and S1/S2
GI: Soft
Neuro: AO x 3
Psych: Calm
[2024-02-06 15:30] VITALS: BP 140/80
[2024-02-06] MEDS: DUONEB 3 ML INH (16:05)
[2024-02-06] MEDS: ATIVAN 0.5 MG PO (16:27)
--- NOTE | 2024-02-06 16:34 | W.PN.UPDATE ---
Update Note
Progress Note Update
Patient is doing better, still anxious but feels better physically and looking forward to go into rehab. Denies significant depression, hopelessness or suicidal thoughts. Appetite stable, sleep varies.
Discussed plans for future; OP treatment recommended.
Would continue current psychotropic meds.
[2024-02-06] MEDS: LOVENOX 40 MG SC (17:20)
[2024-02-06] MEDS: SINGULAIR 10 MG PO (17:20)
[2024-02-06] MEDS: TESSALON PERLES 100 MG PO (19:38)
[2024-02-06] MEDS: MELATONIN 5 MG PO (21:53)
[2024-02-06 23:00] VITALS: BP 160/88
[2024-02-07] MEDS: TYLENOL 1000 MG PO ×2 (04:53→15:52)
[2024-02-07 05:56] VITALS: BMI 23.9
[2024-02-07 07:35] VITALS: BP 146/90
[2024-02-07] MEDS: AUGMENTIN 875 MG/125 MG 1 TABLET PO ×2 (09:06→21:11)
[2024-02-07] MEDS: SYMMETREL 100 MG PO ×2 (09:06→21:08)
[2024-02-07] MEDS: VITAMIN D3 (cholecalciferol) 25 MCG PO (09:06)
[2024-02-07] MEDS: CIPRO 500 MG PO ×2 (09:06→21:08)
[2024-02-07] MEDS: VFEND 200 MG PO ×2 (09:06→21:08)
[2024-02-07] MEDS: PROZAC 20 MG PO (09:06)
[2024-02-07] MEDS: KCL 40 MEQ PO (09:07)
[2024-02-07] MEDS: FOLVITE 1 MG PO (09:07)
[2024-02-07] MEDS: NON-FORMULARY ITEM 1 UNIT PO (09:07)
[2024-02-07] MEDS: PROTONIX 40 MG PO (09:07)
[2024-02-07] MEDS: TESSALON PERLES 100 MG PO ×3 (09:11→22:20)
[2024-02-07] MEDS: ATIVAN 0.5 MG PO ×2 (09:11→21:16)
[2024-02-07] MEDS: DUONEB 3 ML INH ×2 (09:37→20:57)
--- NOTE | 2024-02-07 09:50 | W.PN.ID1 ---
Date of Service
Date of Service: February 07, 2024
Today's Communication
Continue Augmentin 875mg po bid and cipro 500mg po bid through 02/11/24.
Continue with long course voriconazole
Assessment / Plan
Diverticular abscess
- s/p IR drainage (12/25/23)
- s/p exploratory lap, colostomy (01/03/24)
- s/p IR drainage perisplenic fluid (01/13/24)
- s/p IR drain placement to pelvic abscess (01/25/24)
Leukocytosis - resolved
Left pleural effusion
-S/p left chest tube placement, pleurolysis
- chest tube dc'd 02/01/24
- culture negative
BUE superficial thrombus
Hx Pulmonary aspergillosis; on Vfend as outpatient since 04/2023.
hx Recurrent diverticulitis
Anxiety/depression
Hx steroid-induced psychosis
GERD
Asthma
Recommendations:
01/24 pelvic abscess cx: Enterococcus raffinosus; E. coli -> now zosyn-resistant.
02/[address] a/p pelvic abscess resolved; LUQ very small stable fluid density.
Continue Augmentin 875mg po bid and cipro 500mg po bid through 02/11/24.
Continue with voriconazole, present on admission.
Follow LFT's while on voriconazole.
Follow-up with her ID physician in [place].
Awaiting rehab placement.
����������������������������������������������������������
Chief Complaint
-: Other (Diverticulitis; diverticular abscess)
Subjective / Review of Systems
Tolerating abx's.
Vital Signs / Physical Exam
Vital Signs
Vital Signs
Temp Pulse Resp BP Pulse Ox
98.4 F 88 18 146/90 96
02/07/24 07:35 02/07/24 09:41 02/07/24 09:41 02/07/24 07:35 02/07/24 07:35
Physical Exam
Constitutional: No Acute Distress and Comfortable
Gastrointestinal: Soft, Non Tender, Non Distended and Other (DAKOTA drains x 2 serous ouput)
Extremities: Negative Edema
Objective Data
Lab Data
Lab Results
02/03/24 04:40
02/05/24 06:33
PT 15.3 Sec (11.4-14.6) H 01/06/24 15:22
INR 1.21 01/06/24 15:22
APTT 35.6 Sec (23.4-35.0) H 01/06/24 15:22
Estimated Creat Clear 109 ml/min 02/05/24 06:33
Lactic Acid Cancelled 01/04/24 09:00
Total Bilirubin 0.4 mg/dl (0.2-1.3) 02/03/24 04:40
AST 80 U/L (14-36) H 02/03/24 04:40
ALT 44 U/L (0-35) H 02/03/24 04:40
Alkaline Phosphatase 439 U/L (38-126) H 02/03/24 04:40
Most recent labs reviewed.
Micro Results:
01/25/24 15:56 Wound Culture - Final
Abscess Escherichia coli
Enterococcus raffinosus
Gram Stain - Final
01/26/24 16:12 Body Fluid Culture - Final
Pleural Fluid No Growth After 72 Hours
Gram Stain - Final
01/20/24 14:44 Body Fluid Culture - Final
Pleural Fluid No Growth After 72 Hours
Gram Stain - Final
01/13/24 20:22 Blood Culture - Final
Blood/Venous No Growth - Final Report
01/13/24 18:56 Blood Culture - Final
Blood/Venous No Growth - Final Report
01/15/24 10:08 Respiratory Culture - Final
Sputum Gram Stain - Final
01/13/24 13:00 Wound Culture - Final
Abscess Enterococcus raffinosus
Escherichia coli
Gram Stain - Final
01/09/24 14:28 Nasal Screen MRSA (PCR) - Final
Nose MRSA not detected - performed by PCR methodology.
12/26/23 14:43 Blood Culture - Final
Blood/Venous No Growth - Final Report
12/26/23 12:59 Blood Culture - Final
Blood/Venous No Growth - Final Report
12/25/23 17:30 Wound Culture - Final
Abscess Escherichia coli
Escherichia coli#2
Streptococcus species
Group F Streptococcus
Gram Stain - Final
Imaging:
02/02/24 CT abdomen/pelvis with contrast: There is a pigtail type drainage catheter in a stable very small left subdiaphragmatic low-density fluid collection which contains a small amount of gas which is new when compared with the prior study. There
is a pigtail type drainage catheter in the anterior aspect of the left hemipelvis where there has been complete drainage of low density fluid collection in the interval since the 01/24/2024 examination
01/12/2024 CT abdomen/pelvis with contrast: There is a focal predominantly fluid collection in the left upper quadrant, which contains an anterior air-fluid level, compatible with an abscess. This has increased compared to examination of January 07,
2023. Of note, this collection is along the anterior margin of the spleen, without a well-defined plane between the collection and the spleen. There is also an irregular fluid collection within the left pelvis as described, and superimposed
infection of this collection cannot be excluded. There is a pigtail catheter in the left posterior pelvis, entering to the left gluteal region, with no evidence of a collection adjacent to this catheter. Subcutaneous edema, greater in both flanks.
Bilateral pleural effusions, left greater than right. Parenchymal opacity within both lower lobes, greater on the left compared to the right. This is most likely atelectasis, although underlying pneumonia difficult to completely exclude
radiographically.
01/03/2024 CT abdomen/pelvis: Markedly decreased posterior true pelvis abscess in comparison to prior pre-op chest drainage study with pigtail drainage catheter seen in the soft tissues of the left posterior true pelvis. Massively distended right
colon including cecum (cecum measuring up to 12 cm) with marked maximal colonic stool as well as gaseous distention of transverse and proximal descending colon, moderate stool with distention of the distal descending and sigmoid colon, limited in
evaluation without oral contrast opacification. Thickening Of the wall of the distal descending and proximal sigmoid colon which could represent colitis or diverticulitis. Partially obstructing distal colonic mass with inflammation cannot be
excluded. No free air. Please see full dictation for additional detail.
--- NOTE | 2024-02-07 10:47 | CM ---
Addendum entered by Mervat Blankenship 02/07/24 15:36:
CM called to [facility] and left for Christine [phone]. Updated clinicals were sent. Patient will need authorization from insurance when acceptance is confirmed.
Original Note:
Patient seen at bedside, CM will send updated clinicals to [facility]hab. Patient states plan following treatment at acute rehab is to return home. CM will continue to follow for discharge planning needs.
Plan; Acute rehab
--- NOTE | 2024-02-07 11:27 | W.PN.HOSP.TC ---
Today's Communication/Plan
-
check CXR
check AM labs
d/c planning
Assessment / Plan
Assessment / Plan
pt is a 53 year old female
Sigmoid diverticulitis with abscess:
-h/o diverticulosis/diverticulitis
-s/p abscess drainage 12/25/23 by IR. E. coli resistant to Zosyn from 01/24 and also Enterococcus. E. coli pansensitive and Enterococcus Raffinosus on 01/12 wound cultures. Pleural fluid cultures pending but no growth.
-with findings of massively distended right colon including the cecum on CT scan of the abdomen pelvis on January 03, 2024 the patient was taken to the OR for Exploratory laparotomy, takedown splenic flexure, creation end colostomy, omentectomy
-Continue antibiotics per ID--on augmentin through 02/11/24
-Status post abdominal drains on 01/12 and 01/24.
-Follow-up repeat blood cultures for recurrent fevers since 01/12 but so far no growth but initial wound cultures growing E. coli and Enterococcus Raffinosus
- Rpt CT A/P from 01/23 noted -cw drain per surgery/IR
-Surgery following
-Low residue diet per surgery
- Had repeat CT A/P 02/01 - no surgical indications indicated.cw drains, abx. Drains may come off prior to dc per surgery.
Left Pleural effusion, complicated loculated effusion(suspicion for culture-negative empyema):
Status post chest tube on 01/26 which is now removed on 01/31
Pleural fluid cultures no growth.
Pulmonary following
Prior to today:
Left pleural effusion s/p thoracentesis 01/25 (exudative)
follow CXR
Acute hypoxic respiratory insufficiency:
Now off of high flow oxygen for increased PEEP--> now down to 2.5 L of oxygen. Wean as tolerated.
Continue to titrate oxygen as able.
Pulmonary following-on oxygen and chest tube in place
Cardiology signed off-on oral diuresis
Continue incentive spirometry
Continue Acapella
Continue bronchodilators
Aspiration precautions
Leukocytosis:
Normalized
Afebrile
Continue current antibiotics per ID
Continue to trend.
Abnormal EKG-patient now has poor R waves in the anterior leads and also T wave inversion. Echo also showed low normal EF of 50%. Appreciate cardiology input.
Acute CHF with preserved EF - Significant improvement with IV lasix . Weight is below baseline. Normally not on home Lasix. Change to lasix prn based on weight.
Dyskinetic movements/Restless Legs:
-Psychiatry and neurology have decided to start her on Ingrezza. Seems to be working well. Pt feeling improved from her movements standpoint. She also has been placed on Ativan per psychiatry.
-Also started on amantadine.
-Stopped Requip and Neupro patch
-Started melatonin
-Remains on trazodone 100 mg as needed, Flexeril as needed, Dilaudid as needed; psych discussed with outpatient psychiatrist who felt she did not have manic episode but patient decided to continue Depakote. Depakote now discontinued .
-Seroquel stopped as Vfend increases serum concentration of Seroquel.
-Avoid antidopaminergic agents as much as possible
Superficial thrombosis in the left basilic vein (no DVT)
On Lovenox 40 mg daily for prevention DVT and will be enough for above plus local care.
PICC dced 01/19
Acute blood loss anemia:
-Aim to keep H&H more than 7. Follow blood work. Hemoglobin 8.0
-s/p 4U pRBCs
Hyponatremia -sodium 132. Pt was volume overloaded .Improving. Continue to follow
Other problems:
h/o pulmonary Aspergillus: since Apr 2023. cont Vfend.
Hyperkalemia, resolved
HLD
GERD: cont PPI
Anxiety/depression: Continue Trazodone PRN/Prozac/Depakote. Seroquel stopped by psych.
FULL/Lovenox
CW PT/OT eval
Medically stable for DC
DC to acute rehab when bed available
Anticipated Discharge: 24 - 48 hours
Subjective/Interval History
-
Date of Service: February 07, 2024
pt doing well--looking forward to going to rehab after prolonged stay
Objective Data
-
Vital Signs:
max temp for 24 hours
02/06/24
15:30
Temp 99.1 F
Vital Signs
Temp Pulse Resp BP Pulse Ox
98.4 F 88 18 146/90 96
02/07/24 07:35 02/07/24 09:41 02/07/24 09:41 02/07/24 07:35 02/07/24 07:35
I&O
02/06/24 02/07/24 02/08/24
06:59 06:59 06:59
Intake Total 4015 / 4015 1934
Output Total
Balance 4002 / 4002 1923
Review of Systems
-
All other systems: Reviewed and negative
Physical Exam
-
General: Well Developed, Well Nourished and No Apparent Distress
HEENT: Normocephalic and Atraumatic
Respiratory: Wheezes; Negative Clear to Auscultation or Rhonchi
Cardiac: Regular Rhythm and S1/S2; Negative Murmur
GI: Soft, Nontender, Nondistended, Normal Bowel Sounds, Ostomy and Other (drain in place)
Musculoskeletal: No Clubbing, No Cyanosis and No Edema
Skin: Warm
Neuro: Awake
[2024-02-07 13:00] VITALS: BP 155/92; PULSE 98; O2SAT 96
[2024-02-07 15:45] VITALS: BP 135/78
[2024-02-07] MEDS: LOVENOX 40 MG SC (17:28)
[2024-02-07] MEDS: SINGULAIR 10 MG PO (17:29)
[2024-02-07] MEDS: MELATONIN 5 MG PO (21:13)
[2024-02-07 23:39] VITALS: BP 124/86
[2024-02-08] MEDS: ROXICODONE 5 MG PO ×3 (03:04→22:37)
[2024-02-08 06:00] VITALS: BMI 24.2
[2024-02-08] MEDS: TESSALON PERLES 100 MG PO ×2 (06:27→18:17)
[2024-02-08 07:35] VITALS: BP 135/80
[2024-02-08] MEDS: DUONEB 3 ML INH (08:13)
[2024-02-08 08:39] LABS: Hematocrit 31.2 % (37.0-47.0); Hemoglobin 9.6 g/dL (12.0-16.0); Mean Corp Hgb Conc. 30.8 g/dL (33.0-37.0); Mean Corpuscular Hgb 29.4 pg (27.0-31.0); Mean Corpuscular Volume 95.7 fL (81.0-99.0); Mean Platelet Volume 8.5 fL (7.4-10.4); Platelet Count 377 10^3/uL (130-400); Red Blood Cell Count 3.26 10^6/uL (4.20-5.40); White Blood Cell Count 11.1 10^3/uL (4.8-10.8)
[2024-02-08 09:00] LABS: NT-proBNP 6180 pg/ml
[2024-02-08] MEDS: PROZAC 20 MG PO (09:09)
[2024-02-08] MEDS: AUGMENTIN 875 MG/125 MG 1 TABLET PO ×2 (09:09→20:25)
[2024-02-08] MEDS: PROTONIX 40 MG PO (09:10)
[2024-02-08] MEDS: VFEND 200 MG PO ×2 (09:10→21:26)
[2024-02-08] MEDS: FOLVITE 1 MG PO (09:10)
[2024-02-08] MEDS: CIPRO 500 MG PO ×2 (09:10→20:25)
[2024-02-08] MEDS: VITAMIN D3 (cholecalciferol) 25 MCG PO (09:10)
[2024-02-08] MEDS: SYMMETREL 100 MG PO ×2 (09:10→20:25)
[2024-02-08] MEDS: KCL 40 MEQ PO (09:10)
[2024-02-08] MEDS: ATIVAN 0.5 MG PO ×2 (09:12→21:26)
[2024-02-08] MEDS: TYLENOL 1000 MG PO ×3 (09:17→21:26)
[2024-02-08] MEDS: NON-FORMULARY ITEM 1 UNIT PO (09:21)
[2024-02-08 09:30] LABS: ALT (SGPT) 27 U/L (0-35); AST (SGOT) 34 U/L (14-36); Albumin 3.4 g/dl (3.5-5.0); Alkaline Phosphatase 305 U/L (38-126); Blood Urea Nitrogen 7 mg/dl (7-17); Calcium 9.2 mg/dl (8.4-10.2); Carbon Dioxide 25 mmol/L (22-30); Chloride 99 mmol/L (98-107); Estimated Creatinine Clearance 109 ml/min; Glucose 120 mg/dl (70-99); Magnesium 1.8 mg/dl (1.6-2.3); Potassium 4.7 mmol/L (3.5-5.1); Sodium 133 mmol/L (135-145); Total Bilirubin 0.4 mg/dl (0.2-1.3); Total Protein 6.9 g/dl (6.3-8.2); eGFR > 60.00
--- NOTE | 2024-02-08 10:55 | W.PN.UPDATE ---
Update Note
Progress Note Update
Patient is doing well, no acute problems. Denies depression, helplessness, hopelessness or suicidal thoughts.
She takes Albuterol for shortness of breath and this increases her anxiety, likely a side effect of the albuterol, and than she needs prn Ativan.
Perhaps pulmonary input might help if there is alternative way to manage her SOB.
Will continue F/U.
[2024-02-08] MEDS: ADVAIR HFA 230/21 MCG INHALER 2 PUFF INH ×2 (13:28→20:02)
--- NOTE | 2024-02-08 14:01 | W.PN.HOSP.TC ---
Today's Communication/Plan
-
stop albuterol, switch to xopinex
add back fluticasone/salmeterol Equivalent
Pending DC
Assessment / Plan
Assessment / Plan
pt is a 53 year old female
Sigmoid diverticulitis with abscess:
-h/o diverticulosis/diverticulitis
-s/p abscess drainage 12/25/23 by IR. E. coli resistant to Zosyn from 01/24 and also Enterococcus. E. coli pansensitive and Enterococcus Raffinosus on 01/12 wound cultures. Pleural fluid cultures pending but no growth.
-with findings of massively distended right colon including the cecum on CT scan of the abdomen pelvis on January 03, 2024 the patient was taken to the OR for Exploratory laparotomy, takedown splenic flexure, creation end colostomy, omentectomy
-Continue antibiotics per ID--on augmentin and cipro through 02/11/24
-Status post abdominal drains on 01/12 and 01/24.
-Follow-up repeat blood cultures for recurrent fevers since 01/12 but so far no growth but initial wound cultures growing E. coli and Enterococcus Raffinosus
- Rpt CT A/P from 01/23 noted -cw drain per surgery/IR
-Surgery following
-Low residue diet per surgery
- Had repeat CT A/P 02/01 - no surgical indications indicated.cw drains, abx. Drains may come off prior to dc per surgery.
Left Pleural effusion, complicated loculated effusion(suspicion for culture-negative empyema):
Status post chest tube on 01/26 which is now removed on 01/31
Pleural fluid cultures no growth.
Pulmonary had followed
Restart inhalers upon discharge
Eventual chest imaging in the next 3 to 4 weeks with pulmonary in [place].
Prior to today:
Left pleural effusion s/p thoracentesis 01/25 (exudative)
Acute hypoxic respiratory insufficiency:
Now off of high flow oxygen for increased PEEP--> now down to 2.5 L of oxygen. Wean as tolerated.
Continue to titrate oxygen as able.
Pulmonary following-on oxygen and chest tube in place
Cardiology signed off-on oral diuresis
Continue incentive spirometry
Continue Acapella
Continue bronchodilators
Aspiration precautions
add back breo alternative
Hx Pulmonary aspergillosis; on Vfend as outpatient since 04/2023.
Leukocytosis:
Normalized
Afebrile
Continue current antibiotics per ID
Continue to trend.
Abnormal EKG-patient now has poor R waves in the anterior leads and also T wave inversion. Echo also showed low normal EF of 50%. Appreciate cardiology input.
Acute CHF with preserved EF - Significant improvement with IV lasix . Weight is below baseline. Normally not on home Lasix. Change to lasix prn based on weight.
Dyskinetic movements/Restless Legs:
-Psychiatry and neurology have decided to start her on Ingrezza. Seems to be working well. Pt feeling improved from her movements standpoint. She also has been placed on Ativan per psychiatry.
-Also started on amantadine.
-Stopped Requip and Neupro patch
-Started melatonin
-Remains on trazodone 100 mg as needed, Flexeril as needed, Dilaudid as needed; psych discussed with outpatient psychiatrist who felt she did not have manic episode but patient decided to continue Depakote. Depakote now discontinued .
-Seroquel stopped as Vfend increases serum concentration of Seroquel.
-Avoid antidopaminergic agents as much as possible
Superficial thrombosis in the left basilic vein (no DVT)
On Lovenox 40 mg daily for prevention DVT and will be enough for above plus local care.
PICC dced 01/19
Acute blood loss anemia:
-Aim to keep H&H more than 7. Follow blood work. Hemoglobin 8.0
-s/p 4U pRBCs
Hyponatremia -sodium 132. most likely SIADH; Pt was volume overloaded .Improving. Continue to follow
Anxiety
-switch albuterol to xopinex
Other problems:
h/o pulmonary Aspergillus: since Apr 2023. cont Vfend.
Hyperkalemia, resolved
HLD
GERD: cont PPI
Anxiety/depression: Continue Trazodone PRN/Prozac/Depakote. Seroquel stopped by psych.
FULL/Lovenox
CW PT/OT eval
Medically stable for DC
DC to acute rehab when bed available
Anticipated Discharge: Within 24 hours
Subjective/Interval History
-
Date of Service: February 08, 2024
anxious, otherwise no acute events
Objective Data
-
Labs:
Laboratory Results
02/08/24
08:24
WBC 11.1 H
Hgb 9.6 L
Hct 31.2 L
Plt Count 377
Sodium 133 L
Potassium 4.7
Chloride 99
Carbon Dioxide 25
BUN 7
Creatinine 0.4 L
Glucose 120 H
Calcium 9.2
Total Bilirubin 0.4
AST 34
ALT 27
Alkaline Phosphatase 305 H
Vital Signs:
Vital Signs
Temp Pulse Resp BP Pulse Ox
99.2 F 96 20 135/80 98
02/08/24 07:35 02/08/24 13:32 02/08/24 13:32 02/08/24 07:35 02/08/24 13:32
I&O
02/07/24 02/08/24 02/09/24
06:59 06:59 06:59
Intake Total 1934 / 2354
Output Total 230 / 230
Balance 1923 / 2124
Review of Systems
-
History Source: Patient
All other systems: Not reviewed unless documented
Physical Exam
-
General: Well Developed, Well Nourished and No Apparent Distress
HEENT: Normocephalic and Atraumatic
Respiratory: Wheezes (mild); Negative Clear to Auscultation or Rhonchi
Cardiac: Regular Rhythm and S1/S2; Negative Murmur
GI: Soft, Nontender, Nondistended, Normal Bowel Sounds, Ostomy and Other (drain in place)
Musculoskeletal: No Clubbing, No Cyanosis and No Edema
Skin: Warm
Neuro: Awake
Data Reviewed
-
Diagnostic Radiology: Image personally visualized and interpreted and Report Reviewed by me
CT Scan: Image personally visualized and interpreted and Report Reviewed by me
Labs: Labs Reviewed by me
[2024-02-08] MEDS: ROBITUSSIN 200 MG PO ×2 (14:16→22:37)
--- NOTE | 2024-02-08 15:05 | WOUNDNOTE ---
WON RN NOTE: Appliance changed today by patient with very minimal assist by ostomy nurse. Reinforced teaching and encouragement given. Patient is independent with emptying and burping appliance. Will bring additional convex wafers to patient
tomorrow. Called [facility] for additional pouches and Kelly seals, are at bedside. Patient waiting for Rehab.
--- NOTE | 2024-02-08 15:06 | WOUNDNOTE ---
WON RN NOTE: Patient ambulated self from chair to bed, sacrum is intact. Appliance changed today by patient with very minimal assist from ostomy nurse. Reinforced teaching and encouragement given. Patient is independent with emptying and burping
appliance. Will bring additional convex wafers #[id number] to patient tomorrow. Called [facility] for additional pouches and Kelly seals, placed at bedside. Patient waiting for Rehab.
[2024-02-08 15:45] VITALS: BP 136/78
[2024-02-08 16:00] VITALS: BP 147/80; PULSE 90; O2SAT 100
--- NOTE | 2024-02-08 16:18 | CM ---
Reviewed the chart notes and spoke with Ms. Wakefield from [facility] ([phone]) case monitor. Discussed that the patient is capitated to [place] services only. Additional SNF referrals sent. Patient is not eligible for [facility] services in [place]
where she now currently resides. Patient is on disability through employer. CM continues to be available to patient/family and is monitoring medical plan for needs at discharge.
Plan: Discharge plan is to SNF/rehab once a bed is found and a precert is obtained.
[2024-02-08] MEDS: LOVENOX 40 MG SC (18:17)
[2024-02-08] MEDS: SINGULAIR 10 MG PO (18:17)
--- NOTE | 2024-02-08 18:43 | PTCARENOTE ---
Patient had an episode of bowel movement per rectum (soft/loose) accompanied with mild abdominal pain. Per surgery, it is mucus secretions from the distal end (normal). Patient explained and reassured.
[2024-02-08] MEDS: MELATONIN 5 MG PO (21:26)
[2024-02-08] MEDS: DESYREL 100 MG PO (22:37)
[2024-02-08 23:22] VITALS: BP 159/94
[2024-02-09] MEDS: TESSALON PERLES 100 MG PO ×3 (02:12→18:03)
[2024-02-09] MEDS: TYLENOL 1000 MG PO ×3 (05:11→22:27)
[2024-02-09] MEDS: ROBITUSSIN 200 MG PO ×2 (05:11→20:19)
[2024-02-09 06:00] VITALS: BMI 24.3
[2024-02-09 06:37] LABS: Hematocrit 27.4 % (37.0-47.0); Hemoglobin 8.7 g/dL (12.0-16.0); Mean Corp Hgb Conc. 31.8 g/dL (33.0-37.0); Mean Corpuscular Hgb 30.2 pg (27.0-31.0); Mean Corpuscular Volume 95.1 fL (81.0-99.0); Mean Platelet Volume 8.7 fL (7.4-10.4); Platelet Count 353 10^3/uL (130-400); Red Blood Cell Count 2.88 10^6/uL (4.20-5.40); Red Cell Dist. Width 18.5 % (11.5-14.5); White Blood Cell Count 9.5 10^3/uL (4.8-10.8)
[2024-02-09 07:07] LABS: ALT (SGPT) 20 U/L (0-35); AST (SGOT) 23 U/L (14-36); Albumin 3.1 g/dl (3.5-5.0); Alkaline Phosphatase 266 U/L (38-126); Blood Urea Nitrogen 9 mg/dl (7-17); Calcium 9.3 mg/dl (8.4-10.2); Carbon Dioxide 23 mmol/L (22-30); Chloride 99 mmol/L (98-107); Estimated Creatinine Clearance 109 ml/min; Glucose 115 mg/dl (70-99); Potassium 4.4 mmol/L (3.5-5.1); Sodium 133 mmol/L (135-145); Total Bilirubin 0.6 mg/dl (0.2-1.3); Total Protein 6.4 g/dl (6.3-8.2); eGFR > 60.00
[2024-02-09 07:40] VITALS: BP 141/83
[2024-02-09] MEDS: XOPENEX 0.63 MG INHALANT SOLUTION 0.630000000000000004 MG INH ×2 (08:14→19:31)
[2024-02-09] MEDS: ADVAIR HFA 230/21 MCG INHALER 2 PUFF INH ×2 (08:14→19:30)
[2024-02-09] MEDS: VFEND 200 MG PO ×2 (09:07→21:20)
[2024-02-09] MEDS: PROTONIX 40 MG PO (09:07)
[2024-02-09] MEDS: SYMMETREL 100 MG PO ×2 (09:07→20:15)
[2024-02-09] MEDS: ROXICODONE 5 MG PO ×2 (09:08→20:15)
[2024-02-09] MEDS: AUGMENTIN 875 MG/125 MG 1 TABLET PO ×2 (09:08→20:16)
[2024-02-09] MEDS: KCL 40 MEQ PO (09:09)
[2024-02-09] MEDS: NON-FORMULARY ITEM 1 UNIT PO (09:09)
[2024-02-09] MEDS: PROZAC 20 MG PO (09:09)
[2024-02-09] MEDS: CIPRO 500 MG PO ×2 (09:09→20:16)
[2024-02-09] MEDS: FOLVITE 1 MG PO (09:09)
[2024-02-09] MEDS: ATIVAN 0.5 MG PO ×2 (09:09→21:20)
[2024-02-09] MEDS: VITAMIN D3 (cholecalciferol) 25 MCG PO (09:09)
--- NOTE | 2024-02-09 09:25 | W.PN.HOSP.TC ---
Today's Communication/Plan
-
pending dc
increase ativan
Assessment / Plan
Assessment / Plan
pt is a 53 year old female
Sigmoid diverticulitis with abscess:
-h/o diverticulosis/diverticulitis
-s/p abscess drainage 12/25/23 by IR. E. coli resistant to Zosyn from 01/24 and also Enterococcus. E. coli pansensitive and Enterococcus Raffinosus on 01/12 wound cultures. Pleural fluid cultures pending but no growth.
-with findings of massively distended right colon including the cecum on CT scan of the abdomen pelvis on January 03, 2024 the patient was taken to the OR for Exploratory laparotomy, takedown splenic flexure, creation end colostomy, omentectomy
-Continue antibiotics per ID--on augmentin and cipro through 02/11/24
-Status post abdominal drains on 01/12 and 01/24.
-Follow-up repeat blood cultures for recurrent fevers since 01/12 but so far no growth but initial wound cultures growing E. coli and Enterococcus Raffinosus
- Rpt CT A/P from 01/23 noted -cw drain per surgery/IR
-Surgery following
-Low residue diet per surgery
- Had repeat CT A/P 02/01 - no surgical indications indicated.cw drains, abx. Drains may come off prior to dc per surgery.
Left Pleural effusion, complicated loculated effusion(suspicion for culture-negative empyema):
Status post chest tube on 01/26 which is now removed on 01/31
Pleural fluid cultures no growth.
Pulmonary had followed
Restart inhalers upon discharge
Eventual chest imaging in the next 3 to 4 weeks with pulmonary in [place].
Prior to today:
Left pleural effusion s/p thoracentesis 01/25 (exudative)
Acute hypoxic respiratory insufficiency:
Now off of high flow oxygen for increased PEEP--> now down to 2 L of oxygen. Wean as tolerated.
Continue to titrate oxygen as able.
Pulmonary following-on oxygen and chest tube in place
Cardiology signed off-on oral diuresis
Continue incentive spirometry
Continue Acapella
Continue bronchodilators
Aspiration precautions
add back breo alternative
Hx Pulmonary aspergillosis; on Vfend as outpatient since 04/2023.
Leukocytosis:
Normalized
Afebrile
Continue current antibiotics per ID
Continue to trend.
Abnormal EKG-patient now has poor R waves in the anterior leads and also T wave inversion. Echo also showed low normal EF of 50%. Appreciate cardiology input.
Acute CHF with preserved EF - Significant improvement with IV lasix . Weight is below baseline. Normally not on home Lasix. Change to lasix prn based on weight.
Dyskinetic movements/Restless Legs:
-Psychiatry and neurology have decided to start her on Ingrezza. Seems to be working well. Pt feeling improved from her movements standpoint. She also has been placed on Ativan per psychiatry.
-Also started on amantadine.
-Stopped Requip and Neupro patch
-Started melatonin
-Remains on trazodone 100 mg as needed, Flexeril as needed, Dilaudid as needed; psych discussed with outpatient psychiatrist who felt she did not have manic episode but patient decided to continue Depakote. Depakote now discontinued .
-Seroquel stopped as Vfend increases serum concentration of Seroquel.
-Avoid antidopaminergic agents as much as possible
Superficial thrombosis in the left basilic vein (no DVT)
On Lovenox 40 mg daily for prevention DVT and will be enough for above plus local care.
PICC dced 01/19
Acute blood loss anemia:
-Aim to keep H&H more than 7. Follow blood work. Hemoglobin 8.0
-s/p 4U pRBCs
Hyponatremia -sodium 132. most likely SIADH; Pt was volume overloaded .Improving. Continue to follow
Anxiety
-switch albuterol to xopinex
-Ativan increased
Other problems:
h/o pulmonary Aspergillus: since Apr 2023. cont Vfend.
Hyperkalemia, resolved
HLD
GERD: cont PPI
Anxiety/depression: Continue Trazodone PRN/Prozac/Depakote. Seroquel stopped by psych.
FULL/Lovenox
CW PT/OT eval
Medically stable for DC
DC to acute rehab when bed available
Anticipated Discharge: 24 - 48 hours
Subjective/Interval History
-
Date of Service: February 09, 2024
No acute events
Objective Data
-
Labs:
Laboratory Results
02/09/24
05:51
WBC 9.5
Hgb 8.7 L
Hct 27.4 L
Plt Count 353
Sodium 133 L
Potassium 4.4
Chloride 99
Carbon Dioxide 23
BUN 9
Creatinine 0.4 L
Glucose 115 H
Calcium 9.3
Total Bilirubin 0.6
AST 23
ALT 20
Alkaline Phosphatase 266 H
Vital Signs:
Vital Signs
Temp Pulse Resp BP Pulse Ox
99.2 F 98 18 141/83 98
02/08/24 23:22 02/09/24 08:19 02/09/24 08:19 02/09/24 07:40 02/09/24 08:19
I&O
02/08/24 02/09/24 02/10/24
06:59 06:59 06:59
Intake Total 2355 / 2355 1630 / 1630
Output Total 230 / 230
Balance 2125 / 2125 1630 / 1630
Review of Systems
-
History Source: Patient
All other systems: Not reviewed unless documented
Data Reviewed
-
Diagnostic Radiology: Image personally visualized and interpreted and Report Reviewed by me
CT Scan: Image personally visualized and interpreted and Report Reviewed by me
Labs: Labs Reviewed by me
--- NOTE | 2024-02-09 10:13 | W.PN.ID1 ---
Date of Service
Date of Service: February 09, 2024
Today's Communication
Continue abx. See below...
Assessment / Plan
Diverticular abscess
- s/p IR drainage (12/25/23)
- s/p exploratory lap, colostomy (01/03/24)
- s/p IR drainage perisplenic fluid (01/13/24)
- s/p IR drain placement to pelvic abscess (01/25/24)
Leukocytosis - resolved
Left pleural effusion
-S/p left chest tube placement, pleurolysis
- chest tube dc'd 02/01/24
- culture negative
BUE superficial thrombus
Hx Pulmonary aspergillosis; on Vfend as outpatient since 04/2023.
hx Recurrent diverticulitis
Anxiety/depression
Hx steroid-induced psychosis
GERD
Asthma
Recommendations:
01/24 pelvic abscess cx: Enterococcus raffinosus; E. coli -> now zosyn-resistant.
02/[address] a/p pelvic abscess resolved; LUQ very small stable fluid density.
Continue Augmentin 875mg po bid and cipro 500mg po bid through 02/11/24.
Continue with voriconazole, present on admission.
Follow LFT's while on voriconazole.
Follow-up with her ID physician in [place] following D/C
Awaiting rehab placement or other disposition.
����������������������������������������������������������
Chief Complaint
-: Other (Diverticulitis; diverticular abscess)
Subjective / Review of Systems
Review of Systems: No Fever and No Chills
Vital Signs / Physical Exam
Vital Signs
Vital Signs
Temp Pulse Resp BP Pulse Ox
98.7 F 98 18 141/83 98
02/09/24 07:40 02/09/24 08:19 02/09/24 08:19 02/09/24 07:40 02/09/24 08:19
Physical Exam
Constitutional: No Acute Distress, Comfortable and Non-toxic
Eyes: Sclera Anicteric
Gastrointestinal: Soft, Non Tender, Non Distended and Other (DAKOTA drains x 2 serous ouput)
Extremities: Negative Edema
Neurological: Awake and Alert
Psychological: Calm
Objective Data
Lab Data
Lab Results
02/09/24 05:51
02/09/24 05:51
PT 15.3 Sec (11.4-14.6) H 01/06/24 15:22
INR 1.21 01/06/24 15:22
APTT 35.6 Sec (23.4-35.0) H 01/06/24 15:22
Estimated Creat Clear 109 ml/min 02/09/24 05:51
Lactic Acid Cancelled 01/04/24 09:00
Total Bilirubin 0.6 mg/dl (0.2-1.3) 02/09/24 05:51
AST 23 U/L (14-36) 02/09/24 05:51
ALT 20 U/L (0-35) 02/09/24 05:51
Alkaline Phosphatase 266 U/L (38-126) H 02/09/24 05:51
Most recent labs reviewed.
Micro Results:
01/25/24 15:56 Wound Culture - Final
Abscess Escherichia coli
Enterococcus raffinosus
Gram Stain - Final
01/26/24 16:12 Body Fluid Culture - Final
Pleural Fluid No Growth After 72 Hours
Gram Stain - Final
01/20/24 14:44 Body Fluid Culture - Final
Pleural Fluid No Growth After 72 Hours
Gram Stain - Final
01/13/24 20:22 Blood Culture - Final
Blood/Venous No Growth - Final Report
01/13/24 18:56 Blood Culture - Final
Blood/Venous No Growth - Final Report
01/15/24 10:08 Respiratory Culture - Final
Sputum Gram Stain - Final
01/13/24 13:00 Wound Culture - Final
Abscess Enterococcus raffinosus
Escherichia coli
Gram Stain - Final
01/09/24 14:28 Nasal Screen MRSA (PCR) - Final
Nose MRSA not detected - performed by PCR methodology.
12/26/23 14:43 Blood Culture - Final
Blood/Venous No Growth - Final Report
12/26/23 12:59 Blood Culture - Final
Blood/Venous No Growth - Final Report
12/25/23 17:30 Wound Culture - Final
Abscess Escherichia coli
Escherichia coli#2
Streptococcus species
Group F Streptococcus
Gram Stain - Final
Imaging:
02/02/24 CT abdomen/pelvis with contrast: There is a pigtail type drainage catheter in a stable very small left subdiaphragmatic low-density fluid collection which contains a small amount of gas which is new when compared with the prior study. There
is a pigtail type drainage catheter in the anterior aspect of the left hemipelvis where there has been complete drainage of low density fluid collection in the interval since the 01/24/2024 examination
01/12/2024 CT abdomen/pelvis with contrast: There is a focal predominantly fluid collection in the left upper quadrant, which contains an anterior air-fluid level, compatible with an abscess. This has increased compared to examination of January 07,
2023. Of note, this collection is along the anterior margin of the spleen, without a well-defined plane between the collection and the spleen. There is also an irregular fluid collection within the left pelvis as described, and superimposed
infection of this collection cannot be excluded. There is a pigtail catheter in the left posterior pelvis, entering to the left gluteal region, with no evidence of a collection adjacent to this catheter. Subcutaneous edema, greater in both flanks.
Bilateral pleural effusions, left greater than right. Parenchymal opacity within both lower lobes, greater on the left compared to the right. This is most likely atelectasis, although underlying pneumonia difficult to completely exclude
radiographically.
01/03/2024 CT abdomen/pelvis: Markedly decreased posterior true pelvis abscess in comparison to prior pre-op chest drainage study with pigtail drainage catheter seen in the soft tissues of the left posterior true pelvis. Massively distended right
colon including cecum (cecum measuring up to 12 cm) with marked maximal colonic stool as well as gaseous distention of transverse and proximal descending colon, moderate stool with distention of the distal descending and sigmoid colon, limited in
evaluation without oral contrast opacification. Thickening Of the wall of the distal descending and proximal sigmoid colon which could represent colitis or diverticulitis. Partially obstructing distal colonic mass with inflammation cannot be
excluded. No free air. Please see full dictation for additional detail.
--- NOTE | 2024-02-09 11:27 | W.PN.UPDATE ---
Update Note
Progress Note Update
patient seen chart reviewed. discussed w nursing and w dr james as well as cm. patient very anxious given all of the insurance issues w her care and dispo. i cannot get the ingrezza 40 which she needs for td. have asked her to call her out pt
psych as he did not return my call last week to see if he can get samples of 40 mg. will ask pharm if we can use 60 mg samples given interaction w voriconazole. issues w rehab vs snf continue. will inc prn to q 8 h of ativan. noted change in beta
pili will follow
--- NOTE | 2024-02-09 15:25 | CM ---
Reviewed the chart notes. Calls placed and messages left with: [facility]; [facility]; faxed clinicals to [facility].
[2024-02-09 15:50] VITALS: BP 161/97
[2024-02-09 16:19] VITALS: BP 161/97; PULSE 102; O2SAT 98
[2024-02-09] MEDS: LOVENOX 40 MG SC (18:03)
[2024-02-09] MEDS: SINGULAIR 10 MG PO (18:03)
[2024-02-09] MEDS: MELATONIN 5 MG PO (21:20)
[2024-02-09 23:27] VITALS: BP 135/70
[2024-02-10 05:34] VITALS: BMI 23.9
[2024-02-10 07:10] VITALS: BP 143/80
[2024-02-10] MEDS: ROBITUSSIN 200 MG PO ×2 (08:05→16:15)
[2024-02-10] MEDS: TYLENOL 1000 MG PO ×2 (08:05→16:15)
[2024-02-10] MEDS: PROTONIX 40 MG PO (08:06)
[2024-02-10] MEDS: KCL 40 MEQ PO (08:06)
[2024-02-10] MEDS: VITAMIN D3 (cholecalciferol) 25 MCG PO (08:06)
[2024-02-10] MEDS: PROZAC 20 MG PO (08:06)
[2024-02-10] MEDS: AUGMENTIN 875 MG/125 MG 1 TABLET PO ×2 (08:06→21:21)
[2024-02-10] MEDS: SYMMETREL 100 MG PO ×2 (08:12→21:20)
[2024-02-10] MEDS: FOLVITE 1 MG PO (08:12)
[2024-02-10] MEDS: CIPRO 500 MG PO ×2 (08:12→21:20)
[2024-02-10] MEDS: NON-FORMULARY ITEM 1 UNIT PO (08:12)
[2024-02-10] MEDS: XOPENEX 0.63 MG INHALANT SOLUTION 0.630000000000000004 MG INH (08:13)
[2024-02-10] MEDS: ADVAIR HFA 230/21 MCG INHALER 2 PUFF INH ×2 (08:13→20:06)
--- NOTE | 2024-02-10 08:19 | W.PN.HOSP.TC ---
Today's Communication/Plan
-
pending dc
Assessment / Plan
Assessment / Plan
pt is a 53 year old female
Sigmoid diverticulitis with abscess:
-h/o diverticulosis/diverticulitis
-s/p abscess drainage 12/25/23 by IR. E. coli resistant to Zosyn from 01/24 and also Enterococcus. E. coli pansensitive and Enterococcus Raffinosus on 01/12 wound cultures. Pleural fluid cultures pending but no growth.
-with findings of massively distended right colon including the cecum on CT scan of the abdomen pelvis on January 03, 2024 the patient was taken to the OR for Exploratory laparotomy, takedown splenic flexure, creation end colostomy, omentectomy
-Continue antibiotics per ID--on augmentin and cipro through 02/11/24
-Status post abdominal drains on 01/12 and 01/24.
-Follow-up repeat blood cultures for recurrent fevers since 01/12 but so far no growth but initial wound cultures growing E. coli and Enterococcus Raffinosus
- Rpt CT A/P from 01/23 noted -cw drain per surgery/IR
-Surgery following
-Low residue diet per surgery
- Had repeat CT A/P 02/01 - no surgical indications indicated.cw drains, abx. Drains may come off prior to dc per surgery.
Left Pleural effusion, complicated loculated effusion(suspicion for culture-negative empyema):
Status post chest tube on 01/26 which is now removed on 01/31
Pleural fluid cultures no growth.
Pulmonary had followed
Restart inhalers upon discharge
Eventual chest imaging in the next 3 to 4 weeks with pulmonary in [place].
Prior to today:
Left pleural effusion s/p thoracentesis 01/25 (exudative)
Acute hypoxic respiratory insufficiency:
Now off of high flow oxygen for increased PEEP--> now down to 2 L of oxygen. Wean as tolerated.
Continue to titrate oxygen as able.
Pulmonary following-on oxygen and chest tube in place
Cardiology signed off-on oral diuresis
Continue incentive spirometry
Continue Acapella
Continue bronchodilators - switched to xopinex due to tachycardia/anxiety - states improved symptoms
Aspiration precautions
add back breo alternative
Hx Pulmonary aspergillosis; on Vfend as outpatient since 04/2023.
Leukocytosis:
Normalized
Afebrile
Continue current antibiotics per ID
Continue to trend.
Abnormal EKG-patient now has poor R waves in the anterior leads and also T wave inversion. Echo also showed low normal EF of 50%. Appreciate cardiology input.
Acute CHF with preserved EF - Significant improvement with IV lasix . Weight is below baseline. Normally not on home Lasix. Change to lasix prn based on weight.
Dyskinetic movements/Restless Legs:
-Psychiatry and neurology have decided to start her on Ingrezza. Seems to be working well. Pt feeling improved from her movements standpoint. She also has been placed on Ativan per psychiatry.
-Also started on amantadine.
-Stopped Requip and Neupro patch
-Started melatonin
-Remains on trazodone 100 mg as needed, Flexeril as needed, Dilaudid as needed; psych discussed with outpatient psychiatrist who felt she did not have manic episode but patient decided to continue Depakote. Depakote now discontinued .
-Seroquel stopped as Vfend increases serum concentration of Seroquel.
-Avoid antidopaminergic agents as much as possible
Superficial thrombosis in the left basilic vein (no DVT)
On Lovenox 40 mg daily for prevention DVT and will be enough for above plus local care.
PICC dced 01/19
Acute blood loss anemia:
-Aim to keep H&H more than 7. Follow blood work. Hemoglobin 8.0
-s/p 4U pRBCs
Hyponatremia -sodium 132. most likely SIADH; Pt was volume overloaded .Improving. Continue to follow
Anxiety
-switch albuterol to xopinex
-Ativan increased
Other problems:
h/o pulmonary Aspergillus: since Apr 2023. cont Vfend.
Hyperkalemia, resolved
HLD
GERD: cont PPI
Anxiety/depression: Continue Trazodone PRN/Prozac/Depakote. Seroquel stopped by psych.
FULL/Lovenox
CW PT/OT eval
Medically stable for DC
DC to acute rehab when bed available
Anticipated Discharge: 24 - 48 hours
Subjective/Interval History
-
Date of Service: February 10, 2024
no acute events, breathing better;
Objective Data
-
Labs:
Laboratory Results
02/10/24
06:00
WBC Pending
Hgb Pending
Hct Pending
Plt Count Pending
Sodium Pending
Potassium Pending
Chloride Pending
Carbon Dioxide Pending
BUN Pending
Creatinine Pending
Glucose Pending
Calcium Pending
Total Bilirubin Pending
AST Pending
ALT Pending
Alkaline Phosphatase Pending
Vital Signs:
Vital Signs
Temp Pulse Resp BP Pulse Ox
98.6 F 95 18 143/80 96
02/10/24 07:10 02/10/24 07:10 02/10/24 07:10 02/10/24 07:10 02/10/24 07:10
I&O
02/09/24 02/10/24 02/11/24
06:59 06:59 06:59
Intake Total 1630 / 1630 2219 / 222
Output Total 72 / 72
Balance 1630 / 1630 2147 / 214
Review of Systems
-
History Source: Patient
All other systems: Not reviewed unless documented
Physical Exam
-
General: Well Developed, Well Nourished and No Apparent Distress
HEENT: Normocephalic and Atraumatic
Respiratory: Wheezes (mild, much improved over last 48 hours); Negative Clear to Auscultation or Rhonchi
Cardiac: Regular Rhythm and S1/S2; Negative Murmur
GI: Soft, Nontender, Nondistended, Normal Bowel Sounds, Ostomy and Other (drain in place)
Musculoskeletal: No Clubbing, No Cyanosis and No Edema
Skin: Warm
Neuro: Awake
Data Reviewed
-
Diagnostic Radiology: Image personally visualized and interpreted and Report Reviewed by me
CT Scan: Image personally visualized and interpreted and Report Reviewed by me
Labs: Labs Reviewed by me
--- NOTE | 2024-02-10 08:28 | W.PN.ID1 ---
Date of Service
Date of Service: February 10, 2024
Today's Communication
Continue antibiotics.
Assessment / Plan
Diverticular abscess
- s/p IR drainage (12/25/23)
- s/p exploratory lap, colostomy (01/03/24)
- s/p IR drainage perisplenic fluid (01/13/24)
- s/p IR drain placement to pelvic abscess (01/25/24)
Leukocytosis - resolved
Left pleural effusion
-S/p left chest tube placement, pleurolysis
- chest tube dc'd 02/01/24
- culture negative
BUE superficial thrombus
Hx Pulmonary aspergillosis; on Vfend as outpatient since 04/2023.
hx Recurrent diverticulitis
Anxiety/depression
Hx steroid-induced psychosis
GERD
Asthma
Recommendations:
01/24 pelvic abscess cx: Enterococcus raffinosus; E. coli -> now zosyn-resistant.
02/[address] a/p pelvic abscess resolved; LUQ very small stable fluid density.
Continue Augmentin 875mg po bid and cipro 500mg po bid through 02/11/24.
Continue with voriconazole, present on admission.
Following LFT's while on voriconazole.
Patient to follow-up with her ID physician in [place] following D/C
Awaiting rehab placement or other disposition.
����������������������������������������������������������
Chief Complaint
-: Other (Diverticulitis; diverticular abscess)
Subjective / Review of Systems
Review of Systems: No Fever and No Chills
Vital Signs / Physical Exam
Vital Signs
Vital Signs
Temp Pulse Resp BP Pulse Ox
98.6 F 95 18 143/80 96
02/10/24 07:10 02/10/24 07:10 02/10/24 07:10 02/10/24 07:10 02/10/24 07:10
Physical Exam
Constitutional: No Acute Distress, Comfortable and Non-toxic
Eyes: Sclera Anicteric
Cardiovascular: S1/S2; Negative S3/S4
Pulmonary: Coarse and Non Labored
Gastrointestinal: Soft, Non Tender, Non Distended and Other (DAKOTA drains x 2; serous ouput. Ostomy in place)
Extremities: Negative Edema
Neurological: Awake and Alert
Psychological: Calm
Objective Data
Lab Data
PT 15.3 Sec (11.4-14.6) H 01/06/24 15:22
INR 1.21 01/06/24 15:22
APTT 35.6 Sec (23.4-35.0) H 01/06/24 15:22
Estimated Creat Clear 109 ml/min 02/09/24 05:51
Lactic Acid Cancelled 01/04/24 09:00
Total Bilirubin 0.6 mg/dl (0.2-1.3) 02/09/24 05:51
AST 23 U/L (14-36) 02/09/24 05:51
ALT 20 U/L (0-35) 02/09/24 05:51
Alkaline Phosphatase 266 U/L (38-126) H 02/09/24 05:51
Most recent labs reviewed.
Micro Results:
01/25/24 15:56 Wound Culture - Final
Abscess Escherichia coli
Enterococcus raffinosus
Gram Stain - Final
01/26/24 16:12 Body Fluid Culture - Final
Pleural Fluid No Growth After 72 Hours
Gram Stain - Final
01/20/24 14:44 Body Fluid Culture - Final
Pleural Fluid No Growth After 72 Hours
Gram Stain - Final
01/13/24 20:22 Blood Culture - Final
Blood/Venous No Growth - Final Report
01/13/24 18:56 Blood Culture - Final
Blood/Venous No Growth - Final Report
01/15/24 10:08 Respiratory Culture - Final
Sputum Gram Stain - Final
01/13/24 13:00 Wound Culture - Final
Abscess Enterococcus raffinosus
Escherichia coli
Gram Stain - Final
01/09/24 14:28 Nasal Screen MRSA (PCR) - Final
Nose MRSA not detected - performed by PCR methodology.
12/26/23 14:43 Blood Culture - Final
Blood/Venous No Growth - Final Report
12/26/23 12:59 Blood Culture - Final
Blood/Venous No Growth - Final Report
12/25/23 17:30 Wound Culture - Final
Abscess Escherichia coli
Escherichia coli#2
Streptococcus species
Group F Streptococcus
Gram Stain - Final
Imaging:
02/02/24 CT abdomen/pelvis with contrast: There is a pigtail type drainage catheter in a stable very small left subdiaphragmatic low-density fluid collection which contains a small amount of gas which is new when compared with the prior study. There
is a pigtail type drainage catheter in the anterior aspect of the left hemipelvis where there has been complete drainage of low density fluid collection in the interval since the 01/24/2024 examination
01/12/2024 CT abdomen/pelvis with contrast: There is a focal predominantly fluid collection in the left upper quadrant, which contains an anterior air-fluid level, compatible with an abscess. This has increased compared to examination of January 07,
2023. Of note, this collection is along the anterior margin of the spleen, without a well-defined plane between the collection and the spleen. There is also an irregular fluid collection within the left pelvis as described, and superimposed
infection of this collection cannot be excluded. There is a pigtail catheter in the left posterior pelvis, entering to the left gluteal region, with no evidence of a collection adjacent to this catheter. Subcutaneous edema, greater in both flanks.
Bilateral pleural effusions, left greater than right. Parenchymal opacity within both lower lobes, greater on the left compared to the right. This is most likely atelectasis, although underlying pneumonia difficult to completely exclude
radiographically.
01/03/2024 CT abdomen/pelvis: Markedly decreased posterior true pelvis abscess in comparison to prior pre-op chest drainage study with pigtail drainage catheter seen in the soft tissues of the left posterior true pelvis. Massively distended right
colon including cecum (cecum measuring up to 12 cm) with marked maximal colonic stool as well as gaseous distention of transverse and proximal descending colon, moderate stool with distention of the distal descending and sigmoid colon, limited in
evaluation without oral contrast opacification. Thickening Of the wall of the distal descending and proximal sigmoid colon which could represent colitis or diverticulitis. Partially obstructing distal colonic mass with inflammation cannot be
excluded. No free air. Please see full dictation for additional detail.
[2024-02-10] MEDS: ATIVAN 0.5 MG PO (08:33)
[2024-02-10 11:16] LABS: Hematocrit 29.8 % (37.0-47.0); Hemoglobin 9.4 g/dL (12.0-16.0); Mean Corp Hgb Conc. 31.5 g/dL (33.0-37.0); Mean Corpuscular Volume 95.2 fL (81.0-99.0); Mean Platelet Volume 8.6 fL (7.4-10.4); Platelet Count 351 10^3/uL (130-400); Red Blood Cell Count 3.13 10^6/uL (4.20-5.40); Red Cell Dist. Width 18.4 % (11.5-14.5); White Blood Cell Count 8.1 10^3/uL (4.8-10.8)
[2024-02-10 11:31] LABS: ALT (SGPT) 18 U/L (0-35); AST (SGOT) 25 U/L (14-36); Albumin 3.5 g/dl (3.5-5.0); Alkaline Phosphatase 227 U/L (38-126); Blood Urea Nitrogen 7 mg/dl (7-17); Calcium 9.5 mg/dl (8.4-10.2); Carbon Dioxide 25 mmol/L (22-30); Chloride 98 mmol/L (98-107); Estimated Creatinine Clearance 109 ml/min; Glucose 110 mg/dl (70-99); Magnesium 1.9 mg/dl (1.6-2.3); Potassium 4.8 mmol/L (3.5-5.1); Sodium 133 mmol/L (135-145); Total Bilirubin 0.4 mg/dl (0.2-1.3); eGFR > 60.00
--- NOTE | 2024-02-10 11:45 | W.PN.UPDATE ---
Update Note
Progress Note Update
patient seen chart reviewed. spoke with nursing cm and with pharmacy. the patient is doing reasonably well psychiatrically given all of her stressors however her insurance continues to provide roadblocks to her further care in terms of placement in
snf or acute rehab and with obtaining ingrezza. i have had numerous conversations w pharmacies at [facility] and as well as with her out pt doctor. i cannot get samples of 40 mg. after ,much discussion we are going to try 60 mg every other day to
approximate as much as we can a 40 mg daily dosage. explained to patient that this is uncharted territory but the fear is that the td will return swiftly if we do not continue w ingrezza. i am getting a supply of 28 pills which will last two months.
it is possible the td with time will improve and it can be stopped eventually but would not dc at this time. psych will continue to follow loosely i will have one of the crisis workers pickers material handlers the samples and deliver them to [facility]ellie [facility] this
afternoon.
[2024-02-10] MEDS: VFEND 200 MG PO ×2 (11:51→21:21)
--- NOTE | 2024-02-10 15:02 | CM ---
Addendum entered by Tisha Castellon RN 02/10/24 15:19:
[facility] quality improvement coordinator (rn) is Kassie ([phone]).
Original Note:
Reviewed the chart notes and spoke with the patient at the bedside. [facility] turned patient down. Additional referrals were sent out and facilities declined. [facility] is accepting the patient and will obtained auth.
Patient informed and is in agreements. Patient informed of financial costs: covered at 705% after deductible of $2150 met and OOP max $7550. CM continues to be available to patient/family and is monitoring medical plan for needs at discharge.
Plan: Discharge to SNF once auth is obtained.
[2024-02-10 15:29] VITALS: BP 134/72
[2024-02-10] MEDS: ZOFRAN 4 MG PO (16:16)
[2024-02-10] MEDS: SINGULAIR 10 MG PO (18:32)
[2024-02-10] MEDS: LOVENOX 40 MG SC (18:32)
[2024-02-10] MEDS: TESSALON PERLES 100 MG PO (21:21)
[2024-02-10] MEDS: ROXICODONE 5 MG PO (21:21)
[2024-02-10] MEDS: MELATONIN 5 MG PO (21:21)
[2024-02-10 23:00] VITALS: BP 144/77
[2024-02-11] MEDS: ATIVAN 0.5 MG PO ×3 (00:06→23:47)
[2024-02-11] MEDS: ROBITUSSIN 200 MG PO ×3 (00:06→23:43)
[2024-02-11 06:00] VITALS: BMI 23.6
[2024-02-11] MEDS: TYLENOL 1000 MG PO ×2 (06:39→19:58)
[2024-02-11 07:48] LABS: Hematocrit 29.1 % (37.0-47.0); Mean Corp Hgb Conc. 30.9 g/dL (33.0-37.0); Mean Corpuscular Hgb 29.8 pg (27.0-31.0); Mean Corpuscular Volume 96.4 fL (81.0-99.0); Mean Platelet Volume 8.3 fL (7.4-10.4); Platelet Count 350 10^3/uL (130-400); Red Blood Cell Count 3.02 10^6/uL (4.20-5.40); Red Cell Dist. Width 18.1 % (11.5-14.5); White Blood Cell Count 6.2 10^3/uL (4.8-10.8)
[2024-02-11 07:50] VITALS: BP 156/86
[2024-02-11 08:12] LABS: Blood Urea Nitrogen 12 mg/dl (7-17); Calcium 9.6 mg/dl (8.4-10.2); Carbon Dioxide 29 mmol/L (22-30); Chloride 96 mmol/L (98-107); Estimated Creatinine Clearance 109 ml/min; Glucose 96 mg/dl (70-99); Potassium 5.1 mmol/L (3.5-5.1); Sodium 133 mmol/L (135-145); eGFR > 60.00
[2024-02-11] MEDS: ADVAIR HFA 230/21 MCG INHALER 2 PUFF INH ×2 (08:30→20:37)
--- NOTE | 2024-02-11 08:36 | W.PN.HOSP.TC ---
Today's Communication/Plan
-
pending dc
Assessment / Plan
Assessment / Plan
pt is a 53 year old female
Sigmoid diverticulitis with abscess:
-h/o diverticulosis/diverticulitis
-s/p abscess drainage 12/25/23 by IR. E. coli resistant to Zosyn from 01/24 and also Enterococcus. E. coli pansensitive and Enterococcus Raffinosus on 01/12 wound cultures. Pleural fluid cultures pending but no growth.
-with findings of massively distended right colon including the cecum on CT scan of the abdomen pelvis on January 03, 2024 the patient was taken to the OR for Exploratory laparotomy, takedown splenic flexure, creation end colostomy, omentectomy
-Continue antibiotics per ID--on augmentin and cipro through 02/11/24
-Status post abdominal drains on 01/12 and 01/24.
-Follow-up repeat blood cultures for recurrent fevers since 01/12 but so far no growth but initial wound cultures growing E. coli and Enterococcus Raffinosus
- Rpt CT A/P from 01/23 noted -cw drain per surgery/IR
-Surgery following
-Low residue diet per surgery
- Had repeat CT A/P 02/01 - no surgical indications indicated.cw drains, abx. Drains may come off prior to dc per surgery.
Left Pleural effusion, complicated loculated effusion(suspicion for culture-negative empyema):
Status post chest tube on 01/26 which is now removed on 01/31
Pleural fluid cultures no growth.
Pulmonary had followed
Restart inhalers upon discharge
Eventual chest imaging in the next 3 to 4 weeks with pulmonary in [place].
Prior to today:
Left pleural effusion s/p thoracentesis 01/25 (exudative)
Acute hypoxic respiratory insufficiency:
Now off of high flow oxygen for increased PEEP--> now down to 2 L of oxygen. Wean as tolerated.
Continue to titrate oxygen as able.
Pulmonary following-on oxygen and chest tube in place
Cardiology signed off-on oral diuresis
Continue incentive spirometry
Continue Acapella
Continue bronchodilators - switched to xopinex due to tachycardia/anxiety - states improved symptoms
Aspiration precautions
add back breo alternative
Hx Pulmonary aspergillosis; on Vfend as outpatient since 04/2023.
Leukocytosis:
Normalized
Afebrile
Continue current antibiotics per ID
Continue to trend.
Abnormal EKG-patient now has poor R waves in the anterior leads and also T wave inversion. Echo also showed low normal EF of 50%. Appreciate cardiology input.
Acute CHF with preserved EF - Significant improvement with IV lasix . Weight is below baseline. Normally not on home Lasix. Change to lasix prn based on weight.
Dyskinetic movements/Restless Legs:
-Psychiatry and neurology have decided to start her on Ingrezza. Seems to be working well. Pt feeling improved from her movements standpoint. She also has been placed on Ativan per psychiatry.
-Also started on amantadine.
-Stopped Requip and Neupro patch
-Started melatonin
-Remains on trazodone 100 mg as needed, Flexeril as needed, Dilaudid as needed; psych discussed with outpatient psychiatrist who felt she did not have manic episode but patient decided to continue Depakote. Depakote now discontinued .
-Seroquel stopped as Vfend increases serum concentration of Seroquel.
-Avoid antidopaminergic agents as much as possible
Superficial thrombosis in the left basilic vein (no DVT)
On Lovenox 40 mg daily for prevention DVT and will be enough for above plus local care.
PICC dced 01/19
Acute blood loss anemia:
-Aim to keep H&H more than 7. Follow blood work. Hemoglobin 8.0
-s/p 4U pRBCs
Hyponatremia -sodium 132. most likely SIADH; Pt was volume overloaded .Improving. Continue to follow
Anxiety
-switch albuterol to xopinex
-Ativan increased
Other problems:
h/o pulmonary Aspergillus: since Apr 2023. cont Vfend.
Hyperkalemia, resolved
HLD
GERD: cont PPI
Anxiety/depression: Continue Trazodone PRN/Prozac/Depakote. Seroquel stopped by psych.
FULL/Lovenox
CW PT/OT eval
Medically stable for DC
DC to acute rehab when bed available
Anticipated Discharge: 24 - 48 hours
Subjective/Interval History
-
Date of Service: February 11, 2024
no acute events
Objective Data
-
Labs:
Laboratory Results
02/11/24
07:37
WBC 6.2
Hgb 9.0 L
Hct 29.1 L
Plt Count 350
Sodium 133 L
Potassium 5.1
Chloride 96 L
Carbon Dioxide 29
BUN 12
Creatinine 0.4 L
Glucose 96
Calcium 9.6
Vital Signs:
Vital Signs
Temp Pulse Resp BP Pulse Ox
98.4 F 90 18 156/86 97
02/11/24 07:50 02/11/24 07:50 02/11/24 07:50 02/11/24 07:50 02/11/24 07:50
I&O
02/10/24 02/11/24 02/12/24
06:59 06:59 06:59
Intake Total 2220 / 2220 2280 / 2280
Output Total 72 / 72 254 / 254
Balance 2148 / 2148 2025
Review of Systems
-
History Source: Patient
All other systems: Not reviewed unless documented
Physical Exam
-
General: Well Developed, Well Nourished and No Apparent Distress
HEENT: Normocephalic and Atraumatic
Respiratory: Wheezes (mild, much improved over last 48 hours); Negative Clear to Auscultation or Rhonchi
Cardiac: Regular Rhythm and S1/S2; Negative Murmur
GI: Soft, Nontender, Nondistended, Normal Bowel Sounds, Ostomy and Other (drain in place)
Musculoskeletal: No Clubbing, No Cyanosis and No Edema
Skin: Warm
Neuro: Awake
Data Reviewed
-
Diagnostic Radiology: Image personally visualized and interpreted and Report Reviewed by me
CT Scan: Image personally visualized and interpreted and Report Reviewed by me
Labs: Labs Reviewed by me
[2024-02-11] MEDS: AUGMENTIN 875 MG/125 MG 1 TABLET PO ×2 (09:00→19:59)
[2024-02-11] MEDS: KCL 40 MEQ PO (09:00)
[2024-02-11] MEDS: VITAMIN D3 (cholecalciferol) 25 MCG PO (09:00)
[2024-02-11] MEDS: SYMMETREL 100 MG PO ×2 (09:00→19:58)
[2024-02-11] MEDS: PROZAC 20 MG PO (09:00)
[2024-02-11] MEDS: CIPRO 500 MG PO ×2 (09:01→19:58)
[2024-02-11] MEDS: FOLVITE 1 MG PO (09:01)
[2024-02-11] MEDS: PROTONIX 40 MG PO (09:01)
[2024-02-11] MEDS: NON-FORMULARY ITEM 1 UNIT PO (09:01)
[2024-02-11] MEDS: VFEND 200 MG PO ×2 (10:57→22:09)
[2024-02-11] MEDS: ROXICODONE 5 MG PO ×2 (15:22→23:11)
[2024-02-11 15:40] VITALS: BP 135/79
[2024-02-11] MEDS: LOVENOX 40 MG SC (17:14)
[2024-02-11] MEDS: SINGULAIR 10 MG PO (17:14)
[2024-02-11] MEDS: TESSALON PERLES 100 MG PO ×2 (18:12→23:42)
[2024-02-11] MEDS: XOPENEX 0.63 MG INHALANT SOLUTION 0.630000000000000004 MG INH (20:36)
[2024-02-11] MEDS: MELATONIN 5 MG PO (22:05)
[2024-02-11 23:36] VITALS: BP 143/85
[2024-02-12] MEDS: DILAUDID 0.5 MG IV (00:44)
[2024-02-12] MEDS: ROXICODONE 5 MG PO ×3 (05:30→16:45)
[2024-02-12] MEDS: ZOFRAN 4 MG IV (05:59)
[2024-02-12 06:00] VITALS: BMI 23.6
--- NOTE | 2024-02-12 06:05 | PTCARENOTE ---
Pt c/o pain 6/10 L sided abdominal and flank pain, alexa given. Shortly after pt started c/o sweating, nausea and dry heaving. Vomited small amount of water. Pt tearful anxious and tremulous. Pt reminded to take slow deep breaths through nose. COVER CUTTER
notified and ordered IV zofran, med given. Pt appears to be more comfortable now.
--- NOTE | 2024-02-12 07:31 | W.PN.HOSP.TC ---
Today's Communication/Plan
-
dc today
f/u with PCP, GI, Gen Surg, CRS, Pulm, Cards, ID, Psychiatry outpatient
Assessment / Plan
Assessment / Plan
pt is a 53 year old female
Sigmoid diverticulitis with abscess:
-h/o diverticulosis/diverticulitis
-s/p abscess drainage 12/25/23 by IR. E. coli resistant to Zosyn from 01/24 and also Enterococcus. E. coli pansensitive and Enterococcus Raffinosus on 01/12 wound cultures. Pleural fluid cultures pending but no growth.
-with findings of massively distended right colon including the cecum on CT scan of the abdomen pelvis on January 03, 2024 the patient was taken to the OR for Exploratory laparotomy, takedown splenic flexure, creation end colostomy, omentectomy
-Continue antibiotics per ID--on augmentin and cipro completed 02/11/24
-Status post abdominal drains on 01/12 and 01/24.
-Follow-up repeat blood cultures for recurrent fevers since 01/12 but so far no growth but initial wound cultures growing E. coli and Enterococcus Raffinosus
- Rpt CT A/P from 01/23 noted -cw drain per surgery/IR
-Surgery following
-Low residue diet per surgery
- Had repeat CT A/P 02/01 - no surgical indications indicated.cw drains, abx. Drains may come off prior to dc per surgery. IR contacted for removal prior to DC today
-F/u GI, Gen Surg, and CRS outpatient
Left Pleural effusion, complicated loculated effusion(suspicion for culture-negative empyema):
Status post chest tube on 01/26 which is now removed on 01/31
Pleural fluid cultures no growth.
Pulmonary had followed
Restart inhalers upon discharge; Switch duonebs to ipratropium nebs and Xopenex nebs
Eventual chest imaging in the next 3 to 4 weeks with pulmonary in [place].
Prior to today:
Left pleural effusion s/p thoracentesis 01/25 (exudative)
Acute hypoxic respiratory insufficiency:
Now off of high flow oxygen for increased PEEP--> now down to 2 L of oxygen. Wean as tolerated.
Continue to titrate oxygen as able.
Pulmonary following-on oxygen and chest tube in place
Cardiology signed off-on oral diuresis
Continue incentive spirometry
Continue Acapella
Continue bronchodilators - switched to xopinex due to tachycardia/anxiety - states improved symptoms
Aspiration precautions
DC on home inhalers
F/u Pulm outpatient
Hx Pulmonary aspergillosis; on Vfend as outpatient since 04/2023.
-F/u ID outpatient
Leukocytosis:
Normalized
Afebrile
Continue current antibiotics per ID
Continue to trend.
Abnormal EKG-patient now has poor R waves in the anterior leads and also T wave inversion. Echo also showed low normal EF of 50%. Appreciate cardiology input.
Acute CHF with preserved EF - Significant improvement with IV lasix . Weight is below baseline. Normally not on home Lasix. Change to lasix prn based on weight.
-F/u Cardiology outpatient for possible ischemic work up
Dyskinetic movements/Restless Legs:
-Psychiatry and neurology have decided to start her on Ingrezza. Seems to be working well. Pt feeling improved from her movements standpoint. She also has been placed on Ativan per psychiatry.
-Also started on amantadine.
-Stopped Requip and Neupro patch
-Started melatonin
-Remains on trazodone 100 mg as needed, Flexeril as needed, Dilaudid as needed; psych discussed with outpatient psychiatrist who felt she did not have manic episode but patient decided to continue Depakote. Depakote now discontinued .
-Seroquel stopped as Vfend increases serum concentration of Seroquel.
-Avoid antidopaminergic agents as much as possible
-F/u Psych outpatient
Superficial thrombosis in the left basilic vein (no DVT)
On Lovenox 40 mg daily for prevention DVT and will be enough for above plus local care.
PICC dced 01/19
Acute blood loss anemia:
-Aim to keep H&H more than 7. Follow blood work. Hemoglobin 8.0
-s/p 4U pRBCs
Hyponatremia -sodium 132. most likely SIADH; Pt was volume overloaded .Improving. Continue to follow
-f/u bmp outpatient
Hyperkalemia, acute
-lokelma today
-bmp in 3 days
-stop kcl sup
Anxiety
-switch albuterol to xopinex
-Ativan increased
-see plan above
Other problems:
h/o pulmonary Aspergillus: since Apr 2023. cont Vfend. F/u ID outpatient
Hyperkalemia, resolved
HLD
GERD: cont PPI
Anxiety/depression: Continue Trazodone PRN/Prozac/Depakote. Seroquel stopped by psych.
FULL/Lovenox
CW PT/OT eval
Medically stable for DC
More than 30 minutes spent in discharge including
Final examination of the patient
Summarizing hospital stay
Instructions for continuing care to all relevant caregivers
Preparation of discharge records, prescriptions, and referral forms
Total time spent (35 in minutes):
Anticipated Discharge: Today
Subjective/Interval History
-
Date of Service: February 12, 2024
no acute events
Objective Data
-
Labs:
Laboratory Results
02/12/24
06:00
WBC Pending
Hgb Pending
Hct Pending
Plt Count Pending
Sodium Pending
Potassium Pending
Chloride Pending
Carbon Dioxide Pending
BUN Pending
Creatinine Pending
Glucose Pending
Calcium Pending
Vital Signs:
Vital Signs
Temp Pulse Resp BP Pulse Ox
97.9 F 89 20 143/85 96
02/12/24 06:32 02/11/24 23:36 02/11/24 23:36 02/11/24 23:36 02/11/24 23:36
I&O
02/11/24 02/12/24 02/13/24
06:59 06:59 06:59
Intake Total 2280 / 2280 2350 / 2350
Output Total 254 / 254
Balance 2025 2342 / 234
Review of Systems
-
History Source: Patient
All other systems: Not reviewed unless documented
Physical Exam
-
General: Well Developed, Well Nourished and No Apparent Distress
HEENT: Normocephalic and Atraumatic
Respiratory: Wheezes (mild, much improved); Negative Clear to Auscultation or Rhonchi
Cardiac: Regular Rhythm and S1/S2; Negative Murmur
GI: Soft, Nontender, Nondistended, Normal Bowel Sounds, Ostomy and Other (drain in place)
Musculoskeletal: No Clubbing, No Cyanosis and No Edema
Skin: Warm
Neuro: Awake
Data Reviewed
-
Diagnostic Radiology: Image personally visualized and interpreted and Report Reviewed by me
CT Scan: Image personally visualized and interpreted and Report Reviewed by me
Labs: Labs Reviewed by me
[2024-02-12 07:40] VITALS: BP 130/70
[2024-02-12] MEDS: XOPENEX 0.63 MG INHALANT SOLUTION 0.630000000000000004 MG INH (07:59)
[2024-02-12] MEDS: ADVAIR HFA 230/21 MCG INHALER 2 PUFF INH (07:59)
[2024-02-12] MEDS: TYLENOL 1000 MG PO (08:32)
[2024-02-12] MEDS: SYMMETREL 100 MG PO (08:33)
[2024-02-12] MEDS: PROZAC 20 MG PO (08:33)
[2024-02-12] MEDS: FOLVITE 1 MG PO (08:33)
[2024-02-12] MEDS: PROTONIX 40 MG PO (08:34)
[2024-02-12] MEDS: KCL 40 MEQ PO (08:34)
[2024-02-12] MEDS: VITAMIN D3 (cholecalciferol) 25 MCG PO (08:35)
[2024-02-12 10:04] LABS: Hematocrit 30.5 % (37.0-47.0); Hemoglobin 9.3 g/dL (12.0-16.0); Mean Corp Hgb Conc. 30.5 g/dL (33.0-37.0); Mean Corpuscular Hgb 29.8 pg (27.0-31.0); Mean Corpuscular Volume 97.8 fL (81.0-99.0); Mean Platelet Volume 8.6 fL (7.4-10.4); Platelet Count 403 10^3/uL (130-400); Red Blood Cell Count 3.12 10^6/uL (4.20-5.40); Red Cell Dist. Width 17.8 % (11.5-14.5); White Blood Cell Count 6.3 10^3/uL (4.8-10.8)
[2024-02-12 10:17] LABS: Blood Urea Nitrogen 12 mg/dl (7-17); Carbon Dioxide 29 mmol/L (22-30); Chloride 98 mmol/L (98-107); Estimated Creatinine Clearance 109 ml/min; Glucose 120 mg/dl (70-99); Potassium 5.5 mmol/L (3.5-5.1); Sodium 138 mmol/L (135-145); eGFR > 60.00
[2024-02-12] MEDS: VFEND 200 MG PO (10:27)
[2024-02-12] MEDS: ZOFRAN 4 MG PO (10:28)
--- NOTE | 2024-02-12 11:20 | CM ---
Addendum entered by Monet Miller 02/12/24 13:45:
Wheelchair van scheduled for 5:30 p.m. call placed to patient with transport time and contact number to call [phone]. CM updated Kassie at [facility] with transport time.
Plan; [facility], 5:30 WC VAN transport, patient is on O2
Care on at [place]
Report: [phone]

Original Note:
CM received update per Jessenia- darnell approved 02/09-02/15, intake ID [id number], auth #[id number] to [facility]. Per Kassie at [facility], report [phone]. TT sent to nurse and Hospitalist with update on accepting SNF. Patient seen bedside, aware
SNF can accept today. Patient calling friends to see if anyone can provide transportation. Patient does have home O2. CM spoke with Acute Care, general cost for WC Van transport is over $300. Patient will update CM on if friends/family can provide
transportation. CM will continue to follow for all discharge planning needs.
Plan; Care on at [facility], awaiting transportation.
Care on at [place]
Report: [phone]
awaiting fax
--- NOTE | 2024-02-12 11:47 | W.PN.ID1 ---
Date of Service
Date of Service: February 12, 2024
Today's Communication
Sign off
Assessment / Plan
Diverticular abscess
- s/p IR drainage (12/25/23)
- s/p exploratory lap, colostomy (01/03/24)
- s/p IR drainage perisplenic fluid (01/13/24)
- s/p IR drain placement to pelvic abscess (01/25/24)
Leukocytosis - resolved
Left pleural effusion
-S/p left chest tube placement, pleurolysis
- chest tube dc'd 02/01/24
- culture negative
BUE superficial thrombus
Hx Pulmonary aspergillosis; on Vfend as outpatient since 04/2023.
hx Recurrent diverticulitis
Anxiety/depression
Hx steroid-induced psychosis
GERD
Asthma
Recommendations:
01/24 pelvic abscess cx: Enterococcus raffinosus; E. coli -> zosyn-resistant.
02/[address] a/p pelvic abscess resolved; LUQ very small stable fluid density.
Patient has completed course of Augmentin and Cipro.
Continue with voriconazole, present on admission, as prescribed by Infectious Diseases in [place].
Following LFT's while on voriconazole.
Patient to follow-up with her ID physician in [place] following D/C
Patient has been accepted for rehab.
Little more to offer from a Infectious Disease standpoint.
Will see again at your request.
����������������������������������������������������������
Chief Complaint
-: Other (Diverticulitis; diverticular abscess)
Subjective / Review of Systems
Patient seen and examined. No specific complaints at present.
Vital Signs / Physical Exam
Vital Signs
Vital Signs
Temp Pulse Resp BP Pulse Ox
97.3 F 78 18 130/70 98
02/12/24 07:40 02/12/24 08:01 02/12/24 08:01 02/12/24 07:40 02/12/24 08:01
Physical Exam
Constitutional: No Acute Distress, Comfortable and Non-toxic
Eyes: Sclera Anicteric
Pulmonary: Non Labored
Gastrointestinal: Non Distended
Extremities: Negative Edema
Neurological: Awake and Alert
Psychological: Calm
Objective Data
Lab Data
Lab Results
02/12/24 09:31
02/12/24 09:31
PT 15.3 Sec (11.4-14.6) H 01/06/24 15:22
INR 1.21 01/06/24 15:22
APTT 35.6 Sec (23.4-35.0) H 01/06/24 15:22
Estimated Creat Clear 109 ml/min 02/12/24 09:31
Lactic Acid Cancelled 01/04/24 09:00
Total Bilirubin 0.4 mg/dl (0.2-1.3) 02/10/24 10:36
AST 25 U/L (14-36) 02/10/24 10:36
ALT 18 U/L (0-35) 02/10/24 10:36
Alkaline Phosphatase 227 U/L (38-126) H 02/10/24 10:36
Most recent labs reviewed.
Micro Results:
01/25/24 15:56 Wound Culture - Final
Abscess Escherichia coli
Enterococcus raffinosus
Gram Stain - Final
01/26/24 16:12 Body Fluid Culture - Final
Pleural Fluid No Growth After 72 Hours
Gram Stain - Final
01/20/24 14:44 Body Fluid Culture - Final
Pleural Fluid No Growth After 72 Hours
Gram Stain - Final
01/13/24 20:22 Blood Culture - Final
Blood/Venous No Growth - Final Report
01/13/24 18:56 Blood Culture - Final
Blood/Venous No Growth - Final Report
01/15/24 10:08 Respiratory Culture - Final
Sputum Gram Stain - Final
01/13/24 13:00 Wound Culture - Final
Abscess Enterococcus raffinosus
Escherichia coli
Gram Stain - Final
01/09/24 14:28 Nasal Screen MRSA (PCR) - Final
Nose MRSA not detected - performed by PCR methodology.
12/26/23 14:43 Blood Culture - Final
Blood/Venous No Growth - Final Report
12/26/23 12:59 Blood Culture - Final
Blood/Venous No Growth - Final Report
12/25/23 17:30 Wound Culture - Final
Abscess Escherichia coli
Escherichia coli#2
Streptococcus species
Group F Streptococcus
Gram Stain - Final
Imaging:
02/02/24 CT abdomen/pelvis with contrast: There is a pigtail type drainage catheter in a stable very small left subdiaphragmatic low-density fluid collection which contains a small amount of gas which is new when compared with the prior study. There
is a pigtail type drainage catheter in the anterior aspect of the left hemipelvis where there has been complete drainage of low density fluid collection in the interval since the 01/24/2024 examination
01/12/2024 CT abdomen/pelvis with contrast: There is a focal predominantly fluid collection in the left upper quadrant, which contains an anterior air-fluid level, compatible with an abscess. This has increased compared to examination of January 07,
2023. Of note, this collection is along the anterior margin of the spleen, without a well-defined plane between the collection and the spleen. There is also an irregular fluid collection within the left pelvis as described, and superimposed
infection of this collection cannot be excluded. There is a pigtail catheter in the left posterior pelvis, entering to the left gluteal region, with no evidence of a collection adjacent to this catheter. Subcutaneous edema, greater in both flanks.
Bilateral pleural effusions, left greater than right. Parenchymal opacity within both lower lobes, greater on the left compared to the right. This is most likely atelectasis, although underlying pneumonia difficult to completely exclude
radiographically.
01/03/2024 CT abdomen/pelvis: Markedly decreased posterior true pelvis abscess in comparison to prior pre-op chest drainage study with pigtail drainage catheter seen in the soft tissues of the left posterior true pelvis. Massively distended right
colon including cecum (cecum measuring up to 12 cm) with marked maximal colonic stool as well as gaseous distention of transverse and proximal descending colon, moderate stool with distention of the distal descending and sigmoid colon, limited in
evaluation without oral contrast opacification. Thickening Of the wall of the distal descending and proximal sigmoid colon which could represent colitis or diverticulitis. Partially obstructing distal colonic mass with inflammation cannot be
excluded. No free air. Please see full dictation for additional detail.
[2024-02-12] MEDS: LOKELMA 10 GRAM PO (11:56)
--- NOTE | 2024-02-12 12:05 | W.DS.TRANS ---
DC Summary - Manual Lathe Operator
-
Discharge Instructions:
Discharge Diagnosis/Procedures Sigmoid diverticulitis with abscess, history of
Aspergillus fungal lung infection since
April 2023, hyperkalemia, hyperlipidemia,
gastroesophageal reflux disease, anxiety/
depression
Diet Low Residue
Activity As tolerated
Driving Restrictions As prior to admission
Bathing Restrictions OK to Shower
Blood Work bmp in 3-day s(monitor K)
Wound Care Gauze dressings to prior drain sites, change
daily until drainage no longer noted. Pack open
area of midline incision with dry gauze and
change daily.
Instructions:
Stand-Alone Forms:
Changes to Home Medications: Yes
Discharge Medications:
DC Medications w/original date entered in [employer]app
acetaminophen 500 mg tablet 1,000 mg PO Q6H PRN mild pain/fever 12/24/23
albuterol sulfate 90 mcg/actuation aerosol inhaler 2 puff inhalation R Q4 PRN sob/wheezing 12/24/23
aspirin 81 mg tablet,delayed release 81 mg PO DAILY Blood Clot Prevention/Tx 12/24/23
benzonatate 100 mg capsule 100 mg PO TID PRN cough 12/24/23
cholecalciferol (vitamin D3) 25 mcg (1,000 unit) tablet (Vitamin D3) 25 mcg PO DAILY Supplement 12/24/23
fluticasone furoate 200 mcg-vilanterol 25 mcg/dose inhalation powder (Breo Ellipta) 1 inh inhalation R DAILY Lung/Breathing Issues 12/24/23
ibuprofen 200 mg capsule 200 mg PO Q6H PRN mild pain/fever 12/24/23
montelukast 10 mg tablet 10 mg PO QPM ASTHMA 12/24/23
pantoprazole 40 mg tablet,delayed release 40 mg PO DAILY Gastrointestinal Issue 12/24/23
voriconazole 200 mg tablet 200 mg PO Q12H Infection 12/24/23
docusate sodium 100 mg capsule 100 mg PO BID #0 caps 12/31/23
polyethylene glycol 3350 17 gram oral powder packet (HealthyLax) 17 g PO DAILY #0 ea 12/31/23
sodium chloride 0.9 % (flush) (Normal Saline Flush 0.9 % injection syringe) 5 ml intra-catheter DAILY #2,500 mL 12/31/23
budesonide 0.5 mg/2 mL suspension for nebulization 0.5 mg inhalation BIDPRN PRN sob 01/05/24
amantadine HCl 100 mg capsule 100 mg PO BID #0 caps 02/12/24
fluoxetine 20 mg capsule 20 mg PO DAILY #0 caps 02/12/24
ipratropium bromide 0.02 % solution for inhalation 2.5 ml inhalation QID #75 mL 02/12/24
levalbuterol HCl 0.63 mg/3 mL solution for nebulization 0.63 mg (3 mL) inhalation R Q6 wheezing,sob #90 mL 02/12/24
lorazepam 0.5 mg tablet 0.5 mg PO Q8HPRN PRN anxiety #8 tabs 02/12/24
melatonin 5 mg tablet 5 mg PO HS #0 tabs 02/12/24
oxycodone 5 mg tablet 5 mg PO Q4HPRN PRN moderate pain #18 tabs 02/12/24
trazodone 100 mg tablet 100 mg PO HSPRN PRN sleep #3 tabs 02/12/24
valbenazine 60 mg capsule (Ingrezza) 60 mg PO Q48H #1 cap 02/12/24
Home Medication Changes
amantadine HCl 100 mg capsule 100 mg PO BID #0 caps 02/12/24
fluoxetine 20 mg capsule 20 mg PO DAILY #0 caps 02/12/24
ipratropium bromide 0.02 % solution for inhalation 2.5 ml inhalation QID #75 mL 02/12/24
levalbuterol HCl 0.63 mg/3 mL solution for nebulization 0.63 mg (3 mL) inhalation R Q6 wheezing,sob #90 mL 02/12/24
lorazepam 0.5 mg tablet 0.5 mg PO Q8HPRN PRN anxiety #8 tabs 02/12/24
melatonin 5 mg tablet 5 mg PO HS #0 tabs 02/12/24
oxycodone 5 mg tablet 5 mg PO Q4HPRN PRN moderate pain #18 tabs 02/12/24
trazodone 100 mg tablet 100 mg PO HSPRN PRN sleep #3 tabs 02/12/24
valbenazine 60 mg capsule (Ingrezza) 60 mg PO Q48H #1 cap 02/12/24
Pending Results: No
[2024-02-12] MEDS: ATIVAN 0.5 MG PO (12:54)
--- NOTE | 2024-02-12 12:58 | WOUNDNOTE ---
WO RN note: Patient going to IR for removal of drains. Patient to be discharged to rehab today as per patient. Changed patient's ostomy appliance using [place] wafer # [id number], Kelly seal and [place] pouch # [id number]. Stoma pink oval and functioning
for soft brown stool. Peristomal skin intact. Mucocutaneous separation healed. Po intake good. Patient has ostomy supplies in her room and she confirmed she received the Juliette ostomy starter kit at home. Patient ambulated to [facility] for
transport to IR.
--- NOTE | 2024-02-12 13:32 | PN.IRAD.UPD ---
Update Note - IRAD
- -
Cleaned abscess drains A and B with chloraprep and removed. Sites dressed with gauze and a primapore.
González Iraheta RT(R)()
--- NOTE | 2024-02-12 14:10 | PTCARENOTE ---
Patient lost balance and had a control fall to her knees in the bathroom. Witnessed by this nurse. was able to get up with assist x 1. skin intact. Pt did not hit her head. no s/s of distress noted. vs documented. Md aware. no new orders at this
time. Nurse executive communications manager aware.
[2024-02-12 15:45] VITALS: BP 150/86
[2024-02-12] MEDS: ROBITUSSIN 200 MG PO (16:47)
--- NOTE | 2024-02-13 06:48 | W.DCSUMMARY ---
Discharge Summary
Discharge Data
Date of Admission: 12/24/23
Date of Discharge: 02/13/24
-
Pending Results: No
Hospital Course
Primary care physician : Iva Benton
Principal Discharge diagnosis : Sigmoid diverticulitis with abscess, left pleural effusion, suspicious for empyema, acute hypoxemic respiratory insufficiency, abnormal EKG, dyskinetic movements with restless legs, superficial thrombosis of the left
basilic vein, acute blood loss anemia, hyponatremia, hyperkalemia,
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
Hospital Course : Patient was 53-year-old female who was complaining of 5 days of left lower quadrant pain along with an associated fever of 101 also for the last 5 days prior to admission. She was visiting her mother in the [place] area when
the pain became severe. She reported decreased appetite along with nausea. She had been on Augmentin for 3 days prior to admission for history of diverticulosis with recent diverticulitis in October 2023. At that time she was also treated with
Augmentin at [facility] in [place] (she lives there). She was also treated for an ongoing fungal lung infection of Aspergillus in April 2023. She denied chills, chest pain, palpitations, shortness of breath, cough, vomiting,
diarrhea, urinary symptoms. Patient was found to have diverticulitis with abscess and patient was admitted.
Problem #1: Sigmoid diverticulitis with abscess. Patient was admitted and initially seen by colorectal surgery and general surgery. She did have abscess drainage on December 25, 2023 by IR. Patient did not improve and on 01/03/2024 patient had [address]
CT scan which showed massively distended right colon including the cecum. Patient was then taken to the operating room for exploratory laparotomy, takedown splenic flexure, creation of an end colostomy and omentectomy. Infectious disease was also
consulted. Initial wound culture on December 25, 2023 showed 2 types of Escherichia coli, Streptococcus species and group F Streptococcus. Blood cultures were negative throughout her hospital course. She had multiple repeat CAT scans since surgery on
January 08, 2024, January 12, 2024, 01/20/2024, 01/24/2024, and 02/02/2024 with multiple repeat wound cultures (on 01/13/2024 and 01/25/24 she had Enterococcus raffinosus and Escherichia coli). Antibiotics were of course modified and continued throughout her
hospitalization. She completed a final course of Augmentin and ciprofloxacin on February 11, 2024. Surgical drains and interventional radiology drain that were placed were removed prior to discharge. By the time of discharge, she was tolerating a low
residue diet.
Problem #2: Left pleural effusion, suspicion for empyema. Patient was found to have increasing oxygen requirements and was noted to have a left pleural effusion. Interventional radiology was consulted and patient had a chest tube placed on January
2023 which was since removed on February 01, 2024. Pulmonary was consulted. Pleural fluid was checked and no growth was found. She was on DuoNebs along with Xopenex nebs and inhalers were restarted at discharge. It is recommended she have repeat
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 Patient did undergo a thoracentesis on January 25 which was found to be exudative but again no growth was found.
Problem #3: Acute hypoxemic respiratory insufficiency. This was multifactorial which included her history of pulmonary aspergillosis as well as the left pleural effusion which was described above. She was briefly on high flow oxygen for increased
positive and expiratory pressures. She had been weaned down to 2 L and eventually off oxygen. As mentioned, pulmonary was consulted, IR was also consulted for chest tube. She had also been on diuretics for significant edema likely due to IV fluid
administration/resuscitation. Incentive spirometer and Acapella were continued. She was continued on her Vfend and was followed by infectious disease here at the hospital.
Problem #4: Abnormal EKG. Cardiology was consulted. Patient had poor R waves in the anterior leads with T wave inversion. She underwent echocardiogram which showed ejection fraction of 50%. Diagnosis was determined to be acute congestive heart
failure with preserved ejection fraction and patient had significant improvement with IV Lasix. Her weight ended up below her baseline and Lasix was changed to an as needed basis. It is recommended she follow-up with cardiology as an outpatient
for possible ischemic workup.
Problem #5: Dyskinetic movements with restless legs. Patient developed these in the hospital. It is unclear what caused the dyskinetic movements and restless legs. Both psychiatry and neurology were consulted. Ingrezza was started which seemed
to help. She had been on Requip and Neupro patches which were stopped. Trazodone was continued Flexeril and Dilaudid were also continued. Depakote was continued as well.
Problem #6: Superficial thrombosis of the left basilic vein. Patient did have a PICC line but this was not considered to be a deep venous thrombosis. PICC line was eventually removed on January 20, 2024. Lovenox 40 mg subcu daily was given for
prevention of further DVTs.
Problem #7: Acute blood loss anemia. Throughout her hospital course, hemoglobin did drop. In total, patient received 4 units of packed red blood cells.
Problem #8: Hyponatremia. Sodium did drop throughout her hospital. This was thought to be syndrome of inappropriate antidiuretic hormone secretion. Patient was also significantly volume overloaded and Lasix was given. This did improve. Lowest
sodium was 129 on January 24, 2024 and normalized to 138 on February 12, 2024 the day of discharge.
Problem #9: Hypokalemia. This was followed and repleted as necessary.
Problem #10: All other medical issues. 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 These medical issues were stable during her
hospitalization. Medications were continued as able. In regards to her anxiety/depression. Trazodone, Prozac, Depakote were all either started or continued. Psychiatry was consulted. Seroquel was started but stopped by psychiatry. Patient was
much improved by the time of discharge.
Patient has been accepted to [facility]. She is stable to go to rehab at this time. If there are any questions regarding this dictation or her hospital stay, please not hesitate to call. Our office number is [phone].
Time for discharge 45 minutes.
Important imaging findings :
INITIAL CT SCAN ABDOMEN/PELVIS 12/24/23 IMPRESSION:
1. Severe sigmoid diverticulitis with large complex pericolonic abscess in this region as described.
2. Probable chronic mild infectious/inflammatory bronchitis/bronchiolitis in the lung bases.
CT SCAN ABDOMEN/PELVIS 01/03/24 IMPRESSION:
Markedly decreased posterior true pelvis abscess in comparison to prior pre-op chest drainage study with pigtail drainage catheter seen in the soft tissues of the left posterior true pelvis.
Massively distended right colon including cecum (cecum measuring up to 12 cm) with marked maximal colonic stool as well as gaseous distention of transverse and proximal descending colon, moderate stool with distention of the distal descending and
sigmoid colon, limited in evaluation without oral contrast opacification. Thickening Of the wall of the distal descending and proximal sigmoid colon which could represent colitis or diverticulitis. Partially obstructing distal colonic mass with
inflammation cannot be excluded. No free air.
Procedure findings :
01/03/24 Primary Surgeon: Klever
Pre-op Diagnosis: Sigmoid diverticulitis
Post-op Diagnosis: Same
Procedure Performed: Exploratory laparotomy, takedown splenic flexure, creation end colostomy, omentectomy
Anesthesia Type: GETA
Specimen / Cultures: None
Estimated Blood Loss: 150cc
Complications: None immediate
Discharge Plan
-
Patient Disposition: Acute Rehab Facility
Discharge Diagnosis/Procedures: Sigmoid diverticulitis with abscess, history of Aspergillus fungal lung infection since April 2023, hyperkalemia, hyperlipidemia, gastroesophageal reflux disease, anxiety/depression
Condition: Good
Diet: Low Residue
Activity: As tolerated
Driving Restrictions: As prior to admission
Bathing Restrictions: OK to Shower
Blood Work: bmp in 3-day s(monitor K)
Wound Care: Gauze dressings to prior drain sites, change daily until drainage no longer noted. Pack open area of midline incision with dry gauze and change daily.
Activity Restrictions/Additional Instructions:
To be used for Colostomy
Change q 3-4 days and if leakage
clean skin with warm water or mild soap and water
dry skin surrounding stoma
Kelly seal around cut out wafer or stoma
[place] 2 3/4 inch soft convex wafer # [id number] cut to fit, slightly bigger than stoma
Juliette 2 3/4 inch pouch # [id number] or closed end pouch # [id number].
LLQ old drain site wound just under distal wafer border-clean with soap and water, cover with border gauze or foam dressing (add alginate prn drainage) with each wafer change.
Empty ostomy pouch when half full throughout the day
Try samples in secure start kit and if you like appliance can order with monthly supplies.
Call supply company (list in folder provided) for monthly Ostomy supplies after discharge (ask VN to order supplies while on service).
Follow up with surgeon.
Call [facility] RN nurse for ostomy pouching concerns or leakage problems [phone] or [phone] or [phone].
Eventual chest imaging in the next 3 to 4 weeks with pulmonary in [place].
Referrals:
[employer], Provider [Other] - in one to two weeks (Eventual chest imaging in the next 3 to 4 weeks with pulmonary in [place].)
Infectious Disease, Provider [Other] - in one to two weeks (F/u with ID doctor in [place])
Gastroenterology, Provider [Other] - in one to two weeks
Jose Rosenthal MD [Active] - in one to two weeks
Fred Carranza MD [Active] - in one to two weeks
Iva Benton PA-C [Family Provider] - in less than 1 week
Ricki Ernst MD [Active] - in two to three weeks
Octavia Glovre MD [Active] - in one to two weeks (or your regular psychiatrist)
Prescriptions:
New
polyethylene glycol 3350 [HealthyLax] 17 gram Powder In Packet
17 g PO DAILY Qty: 0 0RF
docusate sodium 100 mg Capsule
100 mg PO BID Qty: 0 0RF
sodium chloride 0.9 % (flush) [Normal Saline Flush] Syringe
5 ml intra-catheter DAILY Qty: 2500 0RF
Rx Instructions:
DAKOTA drain flush
amantadine HCl 100 mg Capsule
100 mg PO BID Qty: 0 0RF
levalbuterol HCl 0.63 mg/3 mL Solution For Nebulization
0.63 mg inhalation R Q6 Qty: 90 0RF
fluoxetine 20 mg Capsule
20 mg PO DAILY Qty: 0 0RF
lorazepam 0.5 mg Tablet
0.5 mg PO Q8HPRN PRN (Reason: anxiety) Qty: 8 0RF
trazodone 100 mg Tablet
100 mg PO HSPRN PRN (Reason: sleep) Qty: 3 0RF
oxycodone 5 mg Tablet
5 mg PO Q4HPRN PRN (Reason: moderate pain) Qty: 18 0RF
melatonin 5 mg Tablet
5 mg PO HS Qty: 0 0RF
ipratropium bromide 0.02 % solution
2.5 ml inhalation QID Qty: 75 0RF
Ingrezza 60 mg capsule
60 mg PO Q48H Qty: 1 0RF
Continued
ibuprofen 200 mg Capsule
200 mg PO Q6H PRN (Reason: mild pain/fever)
aspirin 81 mg Tablet,Delayed Release (Dr/Ec)
81 mg PO DAILY
acetaminophen 500 mg Tablet
1,000 mg PO Q6H PRN (Reason: mild pain/fever)
benzonatate 100 mg capsule
100 mg PO TID PRN (Reason: cough)
pantoprazole 40 mg tablet,delayed release (DR/EC)
40 mg PO DAILY
montelukast 10 mg tablet
10 mg PO QPM
albuterol sulfate 90 mcg/actuation HFA aerosol inhaler
2 puff INHALATION R Q4 PRN (Reason: sob/wheezing)
voriconazole 200 mg tablet
200 mg PO Q12H
cholecalciferol (vitamin D3) [Vitamin D3] 25 mcg (1,000 unit) Tablet
25 mcg PO DAILY
fluticasone furoate-vilanterol [Breo Ellipta] 200-25 mcg/dose blister with device
1 inh INHALATION R DAILY
Hold Instructions: hold until seen by pulmonary
budesonide 0.5 mg/2 mL Suspension For Nebulization
0.5 mg INHALATION BIDPRN PRN (Reason: sob)
Discontinued
fluoxetine [Prozac] 40 mg Capsule
40 mg PO DAILY
ipratropium-albuterol 0.5 mg-3 mg(2.5 mg base)/3 mL solution for nebulization
3 ml INHALATION R TID
trazodone 100 mg tablet
200 mg PO HS
amoxicillin-pot clavulanate 875-125 mg tablet
1 tab PO Q12H
quetiapine [Seroquel] 50 mg Tablet
50 mg PO BID
melatonin 3 mg Tablet
3 mg PO HS PRN (Reason: sleep )
Discharge Orders:
Discharge Patient (As Directed); Ordered 02/12/24
Ordered By: Norris Mann
Discharge Date and Time
Discharge Date/Time: 02/12/24 18:25
Print Language: CROATIAN
== END 2024-02-12 18:25 | DRG 853 ==
LOC: 2 NORTH 20:43
PROVIDERS: Clinical Nurse Specialist Family Health; Emergency Medicine; Hospitalist; Internal Medicine; Internal Medicine Critical Care Medicine; Internal Medicine Infectious Disease; Internal Medicine Pulmonary Disease; Nurse Practitioner Gerontology; Nurse Practitioner Primary Care; Radiology Vascular & Interventional Radiology; Registered Nurse; Student in an Organized Health Care Education/Training Program; Surgery; ADMITTING PHYSICIAN Hospitalist; ATTENDING PHYSICIAN Internal Medicine; CONSULT PHYSICIAN Internal Medicine Cardiovascular Disease; CONSULT PHYSICIAN Internal Medicine Critical Care Medicine; CONSULT PHYSICIAN Psychiatry & Neurology Neurology; CONSULT PHYSICIAN Psychiatry & Neurology Psychiatry; CONSULT PHYSICIAN Surgery; EMERGENCY PHYSICIAN Emergency Medicine; FAMILY PHYSICIAN Physician Assistant; OTHER PHYSICIAN Internal Medicine Hematology & Oncology; OTHER PHYSICIAN Internal Medicine Infectious Disease; OTHER PHYSICIAN Physical Medicine & Rehabilitation
PROC: 0W9J3ZZ Drainage of Pelvic Cavity, Percutaneous Approach (ICD-10-PCS; 2023-12-25)
PROC: 0DBU0ZZ Excision of Omentum, Open Approach (ICD-10-PCS; 2024-01-03)
PROC: 0D1M0Z4 Bypass Descending Colon to Cutaneous, Open Approach (ICD-10-PCS; 2024-01-03)
PROC: 30233N1 Transfusion of Nonautologous Red Blood Cells into Peripheral Vein, Percutaneous Approach (ICD-10-PCS; 2024-01-06)
PROC: 3E0436Z Introduction of Nutritional Substance into Central Vein, Percutaneous Approach (ICD-10-PCS; 2024-01-09)
PROC: 02HV33Z Insertion of Infusion Device into Superior Vena Cava, Percutaneous Approach (ICD-10-PCS; 2024-01-09)
PROC: 0W9H3ZZ Drainage of Retroperitoneum, Percutaneous Approach (ICD-10-PCS; 2024-01-13)
PROC: 0W9B3ZZ Drainage of Left Pleural Cavity, Percutaneous Approach (ICD-10-PCS; 2024-01-20)
PROC: 0W9B30Z Drainage of Left Pleural Cavity with Drainage Device, Percutaneous Approach (ICD-10-PCS; 2024-01-27)
PROC: 3E0L317 Introduction of Other Thrombolytic into Pleural Cavity, Percutaneous Approach (ICD-10-PCS; 2024-01-28)
DX: A41.9 Sepsis, unspecified organism (principal); I50.31 Acute diastolic (congestive) heart failure; J86.9 Pyothorax without fistula; K65.1 Peritoneal abscess; K57.20 Diverticulitis of large intestine with perforation and abscess without bleeding; B44.1 Other pulmonary aspergillosis; N17.9 Acute kidney failure, unspecified; F33.9 Major depressive disorder, recurrent, unspecified; I82.612 Acute embolism and thrombosis of superficial veins of left upper extremity; J91.8 Pleural effusion in other conditions classified elsewhere; D62 Acute posthemorrhagic anemia; E22.2 Syndrome of inappropriate secretion of antidiuretic hormone; K66.0 Peritoneal adhesions (postprocedural) (postinfection); E87.5 Hyperkalemia; K21.9 Gastro-esophageal reflux disease without esophagitis; F41.9 Anxiety disorder, unspecified; K59.00 Constipation, unspecified; J47.9 Bronchiectasis, uncomplicated; M10.9 Gout, unspecified; G25.81 Restless legs syndrome; J45.909 Unspecified asthma, uncomplicated; I49.3 Ventricular premature depolarization; E66.9 Obesity, unspecified; R09.02 Hypoxemia; R06.89 Other abnormalities of breathing; E78.00 Pure hypercholesterolemia, unspecified; E87.6 Hypokalemia; G24.01 Drug induced subacute dyskinesia; T38.0X5A Adverse effect of glucocorticoids and synthetic analogues, initial encounter; G47.00 Insomnia, unspecified; E83.51 Hypocalcemia; Z68.23 Body mass index [BMI] 23.0-23.9, adult; Z79.82 Long term (current) use of aspirin; Z79.899 Other long term (current) drug therapy; Z87.01 Personal history of pneumonia (recurrent); Z87.891 Personal history of nicotine dependence; Z98.1 Arthrodesis status
CPT/HCPCS: 88305; 32555; 32557; 32561; 49406; 49424; 71045; 71046; 71250; 74018; 74019; 74177; 76080; 76604; 80048; 80053; 80164; 82607; 82728; 82746; 82805; 82945; 82962; 83605; 83615; 83690; 83735; 83880; 83935; 83986; 84100; 84134; 84155; 84157; 84300; 84443; 84478; 85014; 85018; 85025; 85027; 85610; 85730; 86850; 86900; 86901; 86920; 87015; 87040; 87070; 87077; 87147; 87186; 87205; 87389; 87641; 88112; 89051; 93005; 93306; 93971; 94640; 96365; 96375; 96376; 97110; 97116; 97163; 97164; 97165; 97168; 97530; 97535; 99152; 99153; 99285; C1729; C1769; J2997; P9016; P9047; Q9967

== ENCOUNTER → 2024-06-24 13:09 | Outpatient (REF) | payer OTHER, SELFPAY | LOC: HWRAD 13:09 | PROVIDERS: ATTENDING PHYSICIAN Nurse Practitioner Adult Health; FAMILY PHYSICIAN Physician Assistant | DX: I80.8 Phlebitis and thrombophlebitis of other sites (principal); J47.9 Bronchiectasis, uncomplicated; B44.9 Aspergillosis, unspecified | CPT/HCPCS: 71250; 93971 ==

== ENCOUNTER → 2024-07-11 07:37 | Outpatient (REF) | payer OTHER, SELFPAY | LOC: DHCBC/DCA 07:37 | PROVIDERS: ATTENDING PHYSICIAN Internal Medicine Cardiovascular Disease; FAMILY PHYSICIAN Physician Assistant | DX: R06.02 Shortness of breath (principal) | CPT/HCPCS: 78452; 93017; A9500; J2785 ==

== ENCOUNTER → 2024-07-13 09:09 | Outpatient (REF) | payer OTHER, SELFPAY | LOC: DHSLP 09:09 | PROVIDERS: ATTENDING PHYSICIAN Internal Medicine Critical Care Medicine; FAMILY PHYSICIAN Physician Assistant | DX: G47.33 Obstructive sleep apnea (adult) (pediatric) (principal); R09.02 Hypoxemia | CPT/HCPCS: 95800 ==

== ENCOUNTER 2024-07-27 06:15 | Day surgery (SDC) | payer OTHER, SELFPAY | END 2024-07-27 11:05 | disposition home or self-care (01) | LOC: GI 06:15 | PROVIDERS: ATTENDING PHYSICIAN Surgery | DX: Z12.11 Encounter for screening for malignant neoplasm of colon (principal); K63.89 Other specified diseases of intestine; K63.5 Polyp of colon; Z86.0100 Personal history of colon polyps, unspecified | CPT/HCPCS: 45380; 88305 ==

== ENCOUNTER 2024-07-28 06:18 | Inpatient (IN) | payer OTHER, SELFPAY ==
[2024-07-20 08:52] LABS: Hematocrit 35.5 % (37.0-47.0); Hemoglobin 11.9 g/dL (12.0-16.0); Mean Corp Hgb Conc. 33.5 g/dL (33.0-37.0); Mean Corpuscular Hgb 30.7 pg (27.0-31.0); Mean Corpuscular Volume 91.5 fL (81.0-99.0); Mean Platelet Volume 8.5 fL (7.4-10.4); Platelet Count 283 10^3/uL (130-400); Red Blood Cell Count 3.88 10^6/uL (4.20-5.40); Red Cell Dist. Width 14.3 % (11.5-14.5); White Blood Cell Count 6.5 10^3/uL (4.8-10.8)
[2024-07-20 09:04] LABS: INR 0.93
[2024-07-20 09:05] LABS: APTT 28.8 Sec (23.4-35.0)
[2024-07-20 09:06] LABS: ALT (SGPT) 17 U/L (0-35); AST (SGOT) 18 U/L (14-36); Alkaline Phosphatase 75 U/L (38-126); Blood Urea Nitrogen 18 mg/dl (7-17); Calcium 9.4 mg/dl (8.4-10.2); Carbon Dioxide 29 mmol/L (22-30); Chloride 94 mmol/L (98-107); Glucose 85 mg/dl (70-99); Potassium 4.6 mmol/L (3.5-5.1); Sodium 135 mmol/L (135-145); Total Bilirubin 0.3 mg/dl (0.2-1.3); Total Protein 7.2 g/dl (6.3-8.2); eGFR > 60.00
[2024-07-20 12:10] LABS: Glycohemoglobin (HgbA1c) 4.8 % (4.0-5.6)
[2024-07-20 12:16] VITALS: BMI 23.9
--- NOTE | 2024-07-25 14:58 | PTCARENOTE ---
CT Chest reviewed by Dr. Sun, no requests made.
[2024-07-28] VITALS (17 sets, daily range): BP systolic 35–156; BP diastolic 57–86; BMI 23.9
[2024-07-28] MEDS: ENTEREG 12 MG PO (06:53)
[2024-07-28] MEDS: NEURONTIN 600 MG PO (06:53)
[2024-07-28] MEDS: TYLENOL 1000 MG PO (06:53)
[2024-07-28] MEDS: HEPARIN 5000 UNITS SC (06:54)
[2024-07-28] MEDS: DUONEB 3 ML INH ×2 (06:56→21:07)
--- NOTE | 2024-07-28 14:55 | W.IMMPOSTOP ---
Addendum entered and electronically signed by Jose Rosenthal MD 07/28/24 15:20:
Patient's sister in law Kathy was updated.
Addendum entered and electronically signed by Jose Rosenthal MD 07/28/24 15:20:
Of note, will consult hospitalist for medical management.
Also will give 4 days Invanz due to small volume contamination.
Original Note:
Surgical Immed Post Op Note
-
Primary Surgeon: Derian Rosenthal MD
Assisting Surgeon: GITA Nugent
Pre-op Diagnosis: 1) colostomy 2) sigmoid stricture
Post-op Diagnosis: same; ? of fistula to small bowel;
Procedure Performed: 1) robotic colostomy takedown 2) sigmoidectomy 3) partial small bowel resection X 2 3) extensive lysis of adhesions 4) flexible sigmoidoscopy
Anesthesia Type: general plus local
Specimen / Cultures: 1) sigmoid colon 2) 2 portions of small bowel (one 10 cm; the other about 20 cm)
Estimated Blood Loss: 100 cc
Complications: no immediate
Operative Findings: 1) extensive adhesions 2) sizable midline ventral hernia 3) old proximal sigmoid stapleline stuck to a few loops of small bowel with a small amount of contamination from colon in this area--? of fistula to SB loops
#19 Hugo in pelvis.
NGT in stomach due to extensive LEISA.
Calles/ureteral stents/ureteral ICG by urology.
Plan to send to med surg.
[2024-07-28] MEDS: BUSPAR PO (16:00)
--- NOTE | 2024-07-28 16:03 | CON.HOSP ---
Family Physician
-
Family Physician: Natalie Mccall
Chief Complaint
-
medical mgmt
History of Present Illness
53yo F with PMHx of COPD, Hx of pulmonary aspergilosis. RLS, HLD, GERD, MDD, Hx of diverticulitis with large bowel obstruction s/p splenic flexure takedown and colostomy on 01/03/24 admitted for planned colostomy reversal. Patient seen in PACU, still
sedated after the surgery. R DAKOTA drain, Calles, NG tube present.
Medical History
Past Medical History
Past Medical History: Reports Other
Additional Past Medical History:
see HPI
Past Surgical History: Reports Other
Additional Past Surgical History:
See HPI
Social History
Tobacco: Non-smoker
Alcohol: None
Drug: None
Allergies / Home Medications
Allergies reflects when Allergies were last updated in [facility].
Home Medications with original date entered in [facility]
Allergy/Medication List:
Allergies
Allergy/AdvReac Type Severity Reaction Status Date / Time
prednisone AdvReac steroid Verified 07/28/24 06:29
induced
psychosis
Home Medications
acetaminophen 500 mg tablet 1,000 mg PO Q6H PRN mild pain/fever 12/24/23
albuterol sulfate 90 mcg/actuation aerosol inhaler 2 puff inhalation R Q4 PRN sob/wheezing 12/24/23
aspirin 81 mg tablet,delayed release 81 mg PO DAILY Blood Clot Prevention/Tx 12/24/23
cholecalciferol (vitamin D3) 25 mcg (1,000 unit) tablet (Vitamin D3) 25 mcg PO DAILY Supplement 12/24/23
montelukast 10 mg tablet 10 mg PO QPM ASTHMA 12/24/23
pantoprazole 40 mg tablet,delayed release 40 mg PO DAILY Gastrointestinal Issue 12/24/23
docusate sodium 100 mg capsule 100 mg PO BID #0 caps 12/31/23
polyethylene glycol 3350 17 gram oral powder packet (HealthyLax) 17 g PO DAILY #0 ea 12/31/23
budesonide 0.5 mg/2 mL suspension for nebulization 0.5 mg inhalation BIDPRN PRN sob 01/05/24
amantadine HCl 100 mg capsule 100 mg PO BID #0 caps 02/12/24
fluoxetine 20 mg capsule 20 mg PO DAILY #0 caps 02/12/24
ipratropium bromide 0.02 % solution for inhalation 2.5 ml inhalation QID #75 mL 02/12/24
levalbuterol HCl 0.63 mg/3 mL solution for nebulization 0.63 mg (3 mL) inhalation R Q6 wheezing,sob #90 mL 02/12/24
melatonin 5 mg tablet 5 mg PO HS #0 tabs 02/12/24
trazodone 100 mg tablet 100 mg PO HSPRN PRN sleep #3 tabs 02/12/24
Milk of Magnesia (antacid) 1 tab PO BID 07/22/24
budesonide 160 mcg-glycopyr 9 mcg-formot 4.8 mcg/actuation HFA inhaler (Breztri Aerosphere) 2 inh inhalation DAILY 07/22/24
buspirone 10 mg tablet 10 mg PO TID 07/22/24
divalproex 250 mg tablet,delayed release (Depakote) 250 mg PO TID 07/22/24
erythromycin 500 mg tablet 1,000 mg PO DIRECTED 07/22/24
fluticasone propionate 50 mcg/actuation nasal spray,suspension 1 spray intranasal DAILY 07/22/24
guaifenesin 600 mg tablet, extended release 12 hr (Mucinex) 600 mg PO BID 07/22/24
lorazepam 1 mg tablet 1 mg PO Q6H PRN anxiety 07/22/24
neomycin 500 mg tablet 1 g PO DIRECTED 07/22/24
olanzapine 20 mg tablet (Zyprexa) 20 mg PO HS 07/22/24
sennosides 8.6 mg tablet (senna) 17.2 mg PO HS 07/22/24
sodium sul 1.479 gram-potas ch 0.188 gram-magnes sul 0.225 gram tablet (Sutab) 0 tab PO DIRECTED 07/22/24
Review of Systems
-
Unable to obtain full review of systems at this time due to: Acuity and Other (sedated patient)
Physical Exam
Vital Signs
Vital Signs
Temp Pulse Resp BP Pulse Ox
97.0 F 74 20 108/60 96
07/28/24 15:16 07/28/24 15:50 07/28/24 15:50 07/28/24 15:45 07/28/24 15:50
Physical Exam
General: No Apparent Distress
Respiratory: Clear; Negative Wheezes or Rales
Cardiac: S1/S2 and Regular Rhythm; Negative Murmur
GI: Soft, Non Distended and Other (R DAKOTA drain)
Genito-urinary: Bloody Urine and Calles Catheter
Musculoskeletal: No Clubbing, No Cyanosis and No Edema
Skin: Warm; Negative Dry or Rash
Neuro: Sedated
Psych: Calm
Laboratory Results
-
PT 13.0 Sec (11.4-14.6) 07/20/24 08:22
INR 0.93 07/20/24 08:22
APTT 28.8 Sec (23.4-35.0) 07/20/24 08:22
Total Bilirubin 0.3 mg/dl (0.2-1.3) 07/20/24 08:22
AST 18 U/L (14-36) 07/20/24 08:22
ALT 17 U/L (0-35) 07/20/24 08:22
Alkaline Phosphatase 75 U/L (38-126) 07/20/24 08:22
Impression / Plan
-
A/P:
Labs pending at the time of consult
#Hx of diverticulosis s/p splenix flexure takedown
s/p colostomy reversal on 07/28/[address] -XR chest to confirm placement
Diet when appropriate - follow with surgery
#COPD, not in exacerbation
not bronchospastic on exam
cont bronchodilators
#HLD
#MDD
#HFpEF, chronic
#CAD s/p stress test on 07/11/24 with non-ischemic results
#Spontaneous right carotid dissection discovered after ongoing migraine headaches @2021
cont home meds - DAPT for Hx of carotid dissection
Psych consult as patient expected to remain NPO for few days at least with increased risk for postOP ileus
DVT ppx on SCDs - as per ColorectalSx
Full code
I have spent at least 59min reviewing chart, test results, communication with consultants and direct patient care
[2024-07-28] MEDS: ZOFRAN 4 MG IV (16:23)
[2024-07-28] MEDS: TORADOL 10 MG IV ×2 (16:27→21:22)
[2024-07-28] MEDS: DILAUDID 0.5 MG IV ×2 (17:02→19:30)
--- NOTE | 2024-07-28 18:00 | PTCARENOTE ---
Pt received from the PACU via bed. Transport was w/o incident. Pt is drowsy and easily arousable. VSS, Pt is afebrile. Pt's abd with 4 lap sites, 1 DAKOTA insertion site and noted blood tinged abd dressing to left abd. Pt denies pain or nausea at
present. Pt instructed on plan of care. Pt verbalized understanding of instructions, Call richard is within reach.
[2024-07-28] MEDS: DEPACON 52.5 MG IV (19:27)
[2024-07-28] MEDS: NORMOSOL-R/PLASMALYTE-A 1000 IV (19:28)
[2024-07-28] MEDS: OFIRMEV 100 IV (19:29)
[2024-07-28] MEDS: SYMBICORT 160/4.5 MCG INHALER 2 PUFF INH (21:07)
[2024-07-28] MEDS: SYMMETREL 100 MG PO (21:18)
[2024-07-28] MEDS: ZYPREXA 20 MG PO (21:20)
[2024-07-28] MEDS: BUSPAR 10 MG PO (21:22)
[2024-07-28] MEDS: MUCINEX 600 MG PO (22:25)
[2024-07-28] MEDS: ATIVAN 1 MG IV (23:15)
[2024-07-28] MEDS: NSS (PRESERVATIVE FREE) 0.5 ML IV (23:15)
[2024-07-29] VITALS (8 sets, daily range): BP systolic 114–154; BP diastolic 61–87; PULSE 86; O2SAT 95
[2024-07-29] MEDS: OFIRMEV 100 IV ×3 (00:02→12:34)
[2024-07-29] MEDS: DEPACON 52.5 MG IV ×3 (00:32→17:08)
[2024-07-29] MEDS: DILAUDID 0.5 MG IV ×4 (01:31→18:07)
[2024-07-29] MEDS: TORADOL 10 MG IV ×4 (04:10→21:47)
[2024-07-29] MEDS: NORMOSOL-R/PLASMALYTE-A 1000 IV ×2 (05:34→17:08)
[2024-07-29 06:38] LABS: % Basophils 0.3 % (0-2); % Immature Granulocytes 0.4 % (0-0.5); % Lymphocytes 16.1 % (20.5-51.1); % Monocytes 8.4 % (1.7-9.3); % Neutrophils 74.8 % (42.2-75.2); Absolute Lymphocytes 1.3 10^3/uL (1.2-3.4); Absolute Monocytes 0.7 10^3/uL (0.1-0.6); Absolute Neutrophils 5.8 10^3/uL (1.4-6.5); Hematocrit 29.1 % (37.0-47.0); Hemoglobin 9.8 g/dL (12.0-16.0); Mean Corp Hgb Conc. 33.7 g/dL (33.0-37.0); Mean Corpuscular Hgb 30.2 pg (27.0-31.0); Mean Corpuscular Volume 89.8 fL (81.0-99.0); Mean Platelet Volume 8.8 fL (7.4-10.4); Nucleated Red Blood Cells % 0 %; Platelet Count 220 10^3/uL (130-400); Red Blood Cell Count 3.24 10^6/uL (4.20-5.40); White Blood Cell Count 7.8 10^3/uL (4.8-10.8)
[2024-07-29 07:02] LABS: Blood Urea Nitrogen 9 mg/dl (7-17); Calcium 7.9 mg/dl (8.4-10.2); Carbon Dioxide 27 mmol/L (22-30); Chloride 97 mmol/L (98-107); Estimated Creatinine Clearance 102 ml/min; Glucose 90 mg/dl (70-99); Magnesium 2.1 mg/dl (1.6-2.3); Potassium 4.4 mmol/L (3.5-5.1); Sodium 130 mmol/L (135-145); eGFR > 60.00
[2024-07-29] MEDS: SYMBICORT 160/4.5 MCG INHALER 2 PUFF INH ×2 (07:34→20:34)
[2024-07-29] MEDS: SPIRIVA RESPIMAT 2.5 MCG 2 PUFF INH (07:34)
[2024-07-29] MEDS: DUONEB 3 ML INH (07:38)
[2024-07-29] MEDS: INVANZ 60 MG IV (09:37)
--- NOTE | 2024-07-29 09:40 | W.PN.HOSP.TC ---
Today's Communication/Plan
-
pending diet as per Colorectal
STrt D5NS hydration
Assessment / Plan
Assessment / Plan
53yo F with PMHx of COPD, Hx of pulmonary aspergilosis. RLS, HLD, GERD, MDD, Hx of diverticulitis with large bowel obstruction s/p splenic flexure takedown and colostomy on 01/03/24 admitted for planned colostomy reversal that was done on 07/28/24.
Pending return of bowel function
A/P:
#Hx of diverticulosis s/p splenix flexure takedown
s/p colostomy reversal on 07/28/[address] -XR chest to confirm placement
Diet when appropriate - follow with surgery
#COPD, not in exacerbation
not bronchospastic on exam
cont bronchodilators
#Mild chronic anemia
anemia w/u
#hematuria
most likely 2/2 traumatic rojo
watch
#HLD
#MDD
#HFpEF, chronic
#CAD s/p stress test on 07/11/24 with non-ischemic results
#Spontaneous right carotid dissection discovered after ongoing migraine headaches @2021
No suicidal ideations
cont home meds - DAPT for Hx of carotid dissection
no suicidal ideations
Psych consult as patient expected to remain NPO for few days at least with increased risk for postOP ileus
DVT ppx on SCDs - as per ColorectalSx
Full code
I have spent at least 59min reviewing chart, test results, communication with consultants and direct patient care
Anticipated Discharge: > 48 hours
Subjective/Interval History
-
Date of Service: July 29, 2024
Objective Data
-
Labs:
Laboratory Results
07/28/24 07/29/24
18:40 05:41
WBC Cancelled 7.8
Hgb Cancelled 9.8 L
Hct Cancelled 29.1 L
Plt Count Cancelled 220
Sodium Cancelled 130 L
Potassium Cancelled 4.4
Chloride Cancelled 97 L
Carbon Dioxide Cancelled 27
BUN Cancelled 9
Creatinine Cancelled 0.6
Glucose Cancelled 90
Calcium Cancelled 7.9 L
Vital Signs:
Vital Signs
Temp Pulse Resp BP Pulse Ox
98.5 F 82 18 138/87 97
07/29/24 07:25 07/29/24 07:39 07/29/24 07:39 07/29/24 07:25 07/29/24 07:39
I&O
07/28/24 07/29/24 07/30/24
06:59 06:59 06:59
Intake Total 1890 / 1890
Output Total 3060 / 3060
Balance -1170 / -1170
Review of Systems
-
History Source: Patient
All other systems: Reviewed and negative
Physical Exam
-
General: No Apparent Distress
HEENT: Normocephalic and Other (NG)
Cardiac: Regular Rhythm
GI: Soft and Other (R DAKOTA drain)
Genito-urinary: Bloody Urine and Rojo
Musculoskeletal: No Clubbing, No Cyanosis and No Edema
Skin: Warm
Neuro: Awake, Alert, Oriented and AO x 3
Psych: Calm
[2024-07-29] MEDS: MUCINEX 600 MG PO ×2 (09:47→20:52)
[2024-07-29] MEDS: NSS (PRESERVATIVE FREE) 10 ML IV (09:47)
[2024-07-29] MEDS: ASPIR LOW (ENTERIC COATED) 81 MG PO (09:47)
[2024-07-29] MEDS: PROTONIX IV 40 MG IV (09:47)
[2024-07-29] MEDS: PROZAC 20 MG PO (09:47)
[2024-07-29] MEDS: ENTEREG 12 MG PO ×2 (09:47→20:52)
[2024-07-29] MEDS: BUSPAR 10 MG PO ×3 (09:47→20:52)
[2024-07-29] MEDS: SYMMETREL 100 MG PO ×2 (09:47→20:52)
--- NOTE | 2024-07-29 10:04 | W.PN.CRS1 ---
Today's Communication / Plan
-
Out of bed.
Continue Invanz.
Calles another day.
Lovenox.
Assessment/Plan
-
POD 1.
1. Vitals and labs reasonable.
2. High risk for postop ileus given extensive lysis of adhesions. Also has 3 anastomoses, 2 in the small bowel and 1 in the large bowel. Continue NG tube until some function. Ice chips okay.
3. Out of bed/PT.
4. Continue Calles until tomorrow morning then DC.
5. Invanz for 4 total days given small-volume contamination during case.
6. Lovenox starting this evening.
7. Appreciate hospitalist help.
Subjective Data
Procedure
1) robotic colostomy takedown 2) sigmoidectomy 3) partial small bowel resection X 2 3) extensive lysis of adhesions 4) flexible sigmoidoscopy on 07/28/24
Subjective Data
Date of Service: July 29, 2024
Patient in good spirits. Denies nausea or vomiting. NG tube in place. Pain control reasonable.
Objective Data
-
Vital Signs
Temp Pulse Resp BP Pulse Ox
98.5 F 82 18 138/87 97
07/29/24 07:25 07/29/24 07:39 07/29/24 07:39 07/29/24 07:25 07/29/24 07:39
Intake & Output
07/28/24 07/29/24 07/30/24
06:59 06:59 06:59
Intake Total 1890 / 1890 100 / 100
Output Total 3060 / 3060 540 / 540
Balance -1170 / -1170 -440 / -440
Intake:
IV fluids (Total) 1500 / 1500
Normosol-R/Plasmalyte-A 1,000 300 / 300
ml @ 100 mls/hr IV .Q10H [facility] Rx
#:[id number]
IV piggybacks 300 / 300
Amount instilled into GI Tube ( 90 / 90 100 / 100
Total)
[place]ison Sump 90 / 90 100 / 100
Output:
Drain Output (Total) 175 / 175 40 / 40
Right Abdomen Cole-Olmos 175 / 175 40 / 40
Gastrointestinal tube output ( 560 / 560
Total)
Madison Sump 560 / 560
Urine, Calles 2325 / 2325 500 / 500
Lab Results
07/29/24 05:41
07/29/24 05:41
Physical Exam
-
General: No Acute Distress
Chest: Clear
Cardiovascular: Regular Rate & Rhythm
Abdomen: Distended (mild), Tender (mild incisional) and Other (DAKOTA with SS)
Wound: Dressing Soaked (with old blood) and No Skin Erythema
Incision: Clear, Dry, Intact and No Skin Erythema
--- NOTE | 2024-07-29 14:43 | CON.MD ---
Consultation - Medical
-
53 yr old F well known to psychiatry here due to being seen during her recent extensive admission. Psychiatry consulted as pt is NPO & on multiple psychotropics which need to be held. At the time of discharge, depakote & antipsychotic had been
discontinued and pt was doing well. She reports however that in Apr 2024 she again required a course of very high dose steroids and experienced steroid induced psychosis, which was quite distressing. Since then has been restarted on depakote 250mg
TID, zyprexa 20mg hs & also remains on trazodone 100mg HS, melatonin 5mg HS & prozac 20mg daily. She reports today that she recently completed an IOP which she started for depression, which she has a hx of. She and her psychiatrist at the IOP
discussed concerns for TD & pt chose to remain on zyprexa 20mg for the time being as she is afraid of psychosis returning again. Unfortunately however, TD has returned and can be observed in near constant motion of feet while pt is reclined. She
reports that following d/c here, movements had largely resolved but since restarting zyprexa have been returning (though not yet at the level they were when previously here).
Past psych: several prior inpatient admissions, last about 1.5 yrs ago, recently completed an IOP
FH of psych 'yes' (as per prior eval).
SH: Not much elicited today nor previously, pt presents as rather guarded and this seems consistent with prior admission as well.
D&A: denies
MDD, recurrent, severe
Hx of steroid induced psychosis x2
MSE:�calm,cooperative,pleasant,speech is normal rate & rhythm,quiet,mood is OK, affect is appropriate & congruent to mood,, thought process is logical & goal directed, thought content: denies SI/HI/AVH/delusions. AAOx3. Memory not formally tested.
Insight fair. Judgement fair.
Once pt off NPO status can resume trazodone 100mg HS, melatonin 5mg HS, prozac 20mg & zyprexa at 15mg HS (would trial lower dose to minimize further risk of worsening TD), pt agreeable to this
Depakote 250mg TID continued via IV, can resume po once off npo
Unknown as to duration of NPO status, however if lasts more than few days and/or pt starts experiencing any w/d sxs can receive zyprexa IM 7.5mg. Given TD however would defer IM administration for now as pt can benefit from day or two break off
antipsychotic. Pt is agreeable to IM administration if this is needed.
--- NOTE | 2024-07-29 15:52 | CM ---
Met with pt at bedside
Pt reports she lives in a 2 story home with her mother, brother and [id number]; 2 steps to enter. FF set up
On disability, independent with ADL's and ambulation
DME - single point cane, nebulizer
SNF - in past [facility] in [place]
HH - [facility] in past
Has ride at discharge
PCP - Natalie Milton
Pharm - [facility]
Currently NPO, IVF's, NGT
Plan - anticipate home with VN when medically ready
[2024-07-29] MEDS: LOVENOX 40 MG SC (17:07)
[2024-07-29] MEDS: ZYPREXA 20 MG PO (20:52)
[2024-07-29] MEDS: ATIVAN 1 MG IV (23:10)
[2024-07-29] MEDS: NSS (PRESERVATIVE FREE) 0.5 ML IV (23:11)
[2024-07-29] MEDS: TYLENOL 650 MG PO (23:12)
[2024-07-30] MEDS: DEPACON 52.5 MG IV ×3 (01:23→16:43)
[2024-07-30] MEDS: TORADOL 10 MG IV ×4 (04:24→21:05)
[2024-07-30] MEDS: NORMOSOL-R/PLASMALYTE-A 1000 IV (05:04)
[2024-07-30] MEDS: DILAUDID 0.5 MG IV ×3 (05:09→22:06)
[2024-07-30 05:34] LABS: % Basophils 0.5 % (0-2); % Eosinophils 0.2 % (0-6); % Immature Granulocytes 0.3 % (0-0.5); % Lymphocytes 10.4 % (20.5-51.1); % Monocytes 6.9 % (1.7-9.3); % Neutrophils 81.7 % (42.2-75.2); Absolute Basophils 0.1 10^3/uL (0-0.2); Absolute Monocytes 0.7 10^3/uL (0.1-0.6); Absolute Neutrophils 8.1 10^3/uL (1.4-6.5); Hematocrit 25.4 % (37.0-47.0); Hemoglobin 8.6 g/dL (12.0-16.0); Mean Corp Hgb Conc. 33.9 g/dL (33.0-37.0); Mean Corpuscular Hgb 30.6 pg (27.0-31.0); Mean Corpuscular Volume 90.4 fL (81.0-99.0); Mean Platelet Volume 8.9 fL (7.4-10.4); Nucleated Red Blood Cells % 0 %; Platelet Count 178 10^3/uL (130-400); Red Blood Cell Count 2.81 10^6/uL (4.20-5.40); Reticulocyte Count 2.2 % (0.4-2.8); White Blood Cell Count 9.9 10^3/uL (4.8-10.8)
[2024-07-30 05:58] LABS: ALT (SGPT) 12 U/L (0-35); AST (SGOT) 15 U/L (14-36); Albumin 2.6 g/dl (3.5-5.0); Alkaline Phosphatase 70 U/L (38-126); Blood Urea Nitrogen 8 mg/dl (7-17); Calcium 7.9 mg/dl (8.4-10.2); Carbon Dioxide 27 mmol/L (22-30); Chloride 98 mmol/L (98-107); Estimated Creatinine Clearance 102 ml/min; Glucose 79 mg/dl (70-99); LDH 132 U/L (120-246); Potassium 3.7 mmol/L (3.5-5.1); Sodium 131 mmol/L (135-145); Total Bilirubin 0.5 mg/dl (0.2-1.3); Total Protein 5.2 g/dl (6.3-8.2); eGFR > 60.00
[2024-07-30 06:00] VITALS: BMI 24.0
[2024-07-30 06:01] LABS: Iron 20 ug/dl (37-170)
[2024-07-30 06:08] LABS: Percent Saturation 10 % (20-50); Total Iron Binding Capacity 190 ug/dl (265-497)
[2024-07-30 06:33] LABS: Ferritin 54.9 ng/ml (11.1-264.0)
[2024-07-30 07:04] LABS: Folate 11.3 ng/ml (2.76-20); Vitamin B12 587 pg/ml (239-931)
[2024-07-30 07:30] VITALS: BP 158/93
[2024-07-30] MEDS: SYMBICORT 160/4.5 MCG INHALER 2 PUFF INH ×2 (07:38→18:09)
[2024-07-30] MEDS: DUONEB 3 ML INH ×2 (07:38→18:09)
[2024-07-30] MEDS: SPIRIVA RESPIMAT 2.5 MCG 2 PUFF INH (07:38)
[2024-07-30] MEDS: PROZAC 20 MG PO (09:22)
[2024-07-30] MEDS: MUCINEX 600 MG PO ×2 (09:22→21:04)
[2024-07-30] MEDS: SYMMETREL 100 MG PO ×2 (09:23→21:04)
[2024-07-30] MEDS: ENTEREG 12 MG PO ×2 (09:23→21:04)
[2024-07-30] MEDS: BUSPAR 10 MG PO ×3 (09:23→21:05)
[2024-07-30] MEDS: ASPIR LOW (ENTERIC COATED) 81 MG PO (09:23)
[2024-07-30] MEDS: PROTONIX IV 40 MG IV (09:24)
[2024-07-30] MEDS: NSS (PRESERVATIVE FREE) 10 ML IV (09:24)
[2024-07-30] MEDS: INVANZ 60 MG IV (09:32)
--- NOTE | 2024-07-30 09:42 | W.PN.GS2 ---
Addendum entered and electronically signed by Shahriar Stahl MD 07/30/24 09:57:
Patient seen and examined. Agree with assessment plan as documented below.
Denies worsening abdominal pain. No flatus or BM. No nausea or vomiting. Fevers noted.
Gen: NAD
HEENT: NGT light bilious
Abd: soft, mild tenderness, mild distension, non-peritoneal, incisions c/d/i - no erythema, ecchymosis or drainage, DAKOTA serosang, non-bilious
53 yo female with prior history of COPD, Hx of pulmonary aspergilosis and pelvic abscess/complicated diverticulitis s/p Sav's procedure now POD #2 robotic colostomy takedown with SBR x2 (total of 30cm) with extensive LEISA
Febrile overnight to 101.1 with some tachycardia, BP stable
No leukocytosis
Underlying chronic anemia with acute component secondary to hemodilution and expected operative losses
Await signs of bowel recovery
Calles out and voiding
Hyponatremia improving with IV NSS
--Continue NPO with NGT
--Continue IVF
--Follow drain outputs
--Trend labs
--PRN Analgesics. Ofirmev prn mild pain or fever
--Follow labs, recheck h/h this afternoon
--Continue Invanz
--PPI IV daily for GI ppx
--Appreciate medicine service following
--Hold chemical VTE ppx until h/h stable, SCDS for mechanical ppx
Original Note:
Today's Communication / Plan
-
NGT/NPO/IVF
Pain management
Continue ABX
Assessment / Plan
-
53 yo female with prior history of COPD, Hx of pulmonary aspergilosis and pelvic abscess/complicated diverticulitis s/p Sav's procedure now POD #1 robotic colostomy takedown with SBR x2 (total of 30cm) with extensive LEISA
Febrile overnight to 101.1 with some tachycardia, BP stable
No leukocytosis
Underlying chronic anemia with acute component secondary to hemodilution and expected operative losses
Await signs of bowel recovery
Calles out and voiding
Hyponatremia improving with IV NSS
--Continue NPO with NGT
--Continue IVF
--Follow drain outputs
--Trend labs
--PRN Analgesics. Ofirmev prn mild pain or fever
--Follow labs, recheck h/h this afternoon
--Continue Invanz
--PPI IV daily for GI ppx
--Appreciate medicine service following
--Hold chemical VTE ppx until h/h stable, SCDS for mechanical ppx
Subjective Data
-
Date of Service: July 30, 2024
Patient seen and examined at bedside with Dr. Stahl. Denies n/v. Not yet passing flatus. Pain well controlled. Calles out, patient voiding without difficulty.
Objective Data
-
Intake and Output
07/29/24 07/30/24 07/31/24
06:59 06:59 06:59
Intake Total 1890 / 1890 1730 / 1730 60 / 60
Output Total 3060 / 3060 2540 / 2540
Balance -1170 / -1170 -810 / -810 60 / 60
Intake:
Oral fluids 1080 / 1080
IV fluids (Total) 1500 / 1500
Normosol-R/Plasmalyte-A 1,000 300 / 300
ml @ 100 mls/hr IV .Q10H [facility] Rx
#:[id number]
IV piggybacks 300 / 300 60 / 60
Amount instilled into GI Tube ( 90 / 90 650 / 650
Total)
E[place] Sump 90 / 90 650 / 650
Output:
Drain Output (Total) 175 / 175 140 / 140
Right Abdomen Cole-Olmos 175 / 175 140 / 140
Gastrointestinal tube output ( 560 / 560 650 / 650
Total)
Ector Sump 560 / 560 650 / 650
Urine, Calles 2325 / 2325 1750 / 1750
Vital Signs
Temp Pulse Resp BP Pulse Ox
99.5 F 104 16 158/93 95
07/30/24 07:30 07/30/24 07:47 07/30/24 07:47 07/30/24 07:30 07/30/24 07:47
Lab Results
07/30/24 05:01
Calcium 7.9 mg/dl (8.4-10.2) L 07/30/24 05:01
Magnesium 2.1 mg/dl (1.6-2.3) 07/29/24 05:41
Total Bilirubin 0.5 mg/dl (0.2-1.3) 07/30/24 05:01
AST 15 U/L (14-36) 07/30/24 05:01
ALT 12 U/L (0-35) 07/30/24 05:01
Alkaline Phosphatase 70 U/L (38-126) 07/30/24 05:01
Total Protein 5.2 g/dl (6.3-8.2) L 07/30/24 05:01
Albumin 2.6 g/dl (3.5-5.0) L 07/30/24 05:01
Physical Exam
-
Gen: NAD
HEENT: NGT with bilious/brown outputs
Abd: soft, approp ttp, nonperitoneal, incisions intact without erythema, drain with serosanguineous output
[2024-07-30] MEDS: NSS 1000 IV ×2 (09:57→23:33)
--- NOTE | 2024-07-30 10:17 | W.PN.HOSP.TC ---
Today's Communication/Plan
-
see bold
Assessment / Plan
Assessment / Plan
53yo F with PMHx of COPD, Hx of pulmonary aspergilosis. RLS, HLD, GERD, MDD, Hx of diverticulitis with large bowel obstruction s/p splenic flexure takedown and colostomy on 01/03/24 admitted for planned colostomy reversal that was done on 07/28/24.
Pending return of bowel function
Gen: NAD, AAOx3.
Eyes: EOMI, PERRLA, no scleral icterus.
Neck: supple.
CV: RRR, +S1/S2, no m/r/g.
Resp: CTAB, no rales, wheezes, or rhonchi.
Abd: +BS, soft, tenderness to light palpation, mild distention
Skin: No rashes.
Neuro: CN 2-12 intact, non-focal.
Psych: Normal mood and affect.
CXR 07/28/24: Nasogastric tube tip in the stomach, though may be advanced approximately 4 cm.
Colostomy reversal on 07/28/24:
-h/o diverticulosis s/p splenic flexure takedown
-NGT in place
-cont Invanz
-cont Entereg/PPI
-pain control
-surgery managing
Fe def anemia:
-start IV Fe
Other problems:
COPD, not in exacerbation: Continue Symbicort/Spiriva
Hematuria, likely due to traumatic rojo
HLD
Depression: Cont Buspar/Zyprexa/Prozac/Depakote
Chronic HFpEF: daily wts, I/Os
CAD s/p stress test on 07/11/24 with non-ischemic results
Spontaneous right carotid dissection discovered after ongoing migraine headaches in 2021
Hyponatremia, mild
FULL/SCDs (as per CRS)
Anticipated Discharge: > 48 hours
Subjective/Interval History
-
Date of Service: July 30, 2024
No flatus. No new complaints.
Objective Data
-
Labs:
Laboratory Results
07/30/24 07/30/24
05:01 12:00
WBC 9.9
Hgb 8.6 L Pending
Hct 25.4 L Pending
Plt Count 178
Sodium 131 L
Potassium 3.7
Chloride 98
Carbon Dioxide 27
BUN 8
Creatinine 0.6
Glucose 79
Calcium 7.9 L
Total Bilirubin 0.5
AST 15
ALT 12
Alkaline Phosphatase 70
Vital Signs:
Vital Signs
Temp Pulse Resp BP Pulse Ox
99.5 F 104 16 158/93 95
07/30/24 07:30 07/30/24 07:47 07/30/24 07:47 07/30/24 07:30 07/30/24 07:47
I&O
07/29/24 07/30/24 07/31/24
06:59 06:59 06:59
Intake Total 1890 / 1890 1730 / 1730 112 / 112
Output Total 3060 / 3060 2540 / 2540
Balance -1170 / -1170 -810 / -810 112 / 112
--- NOTE | 2024-07-30 10:59 | CM ---
Patient seen at bedside, NG in place, patient stated she just had pain medications no change in plan for discharge. CM will review options with patient for VN when medically appropriate. CM will continue to follow for discharge planning needs.
Plan; home with VN pending patient choice
[2024-07-30] MEDS: NORMOSOL-R/PLASMALYTE-A IV (11:47)
[2024-07-30 12:07] LABS: Hematocrit 25.2 % (37.0-47.0); Hemoglobin 8.5 g/dL (12.0-16.0)
[2024-07-30] MEDS: FERRLECIT 110 MG IV (13:57)
[2024-07-30 15:25] VITALS: BP 145/68
[2024-07-30 15:39] VITALS: BMI 24.0
[2024-07-30] MEDS: ZYPREXA 20 MG PO (21:05)
[2024-07-30 23:47] VITALS: BP 132/63
[2024-07-31] MEDS: DEPACON 52.5 MG IV ×3 (01:19→16:10)
[2024-07-31] MEDS: TORADOL 10 MG IV ×4 (03:17→21:15)
[2024-07-31 03:20] VITALS: BMI 24.1
[2024-07-31 06:35] LABS: Hematocrit 23.3 % (37.0-47.0); Hemoglobin 7.9 g/dL (12.0-16.0); Mean Corp Hgb Conc. 33.9 g/dL (33.0-37.0); Mean Corpuscular Hgb 31.1 pg (27.0-31.0); Mean Corpuscular Volume 91.7 fL (81.0-99.0); Platelet Count 170 10^3/uL (130-400); Red Blood Cell Count 2.54 10^6/uL (4.20-5.40); Red Cell Dist. Width 13.8 % (11.5-14.5); White Blood Cell Count 8.4 10^3/uL (4.8-10.8)
[2024-07-31 06:57] LABS: Blood Urea Nitrogen 9 mg/dl (7-17); Calcium 7.8 mg/dl (8.4-10.2); Carbon Dioxide 23 mmol/L (22-30); Chloride 100 mmol/L (98-107); Estimated Creatinine Clearance 102 ml/min; Glucose 66 mg/dl (70-99); Magnesium 1.9 mg/dl (1.6-2.3); Phosphorus 3.2 mg/dl (2.5-4.5); Potassium 3.5 mmol/L (3.5-5.1); Sodium 133 mmol/L (135-145); eGFR > 60.00
[2024-07-31 07:15] VITALS: BP 149/80
[2024-07-31] MEDS: DILAUDID 0.5 MG IV ×3 (07:25→16:10)
[2024-07-31] MEDS: SPIRIVA RESPIMAT 2.5 MCG 2 PUFF INH (07:32)
[2024-07-31] MEDS: SYMBICORT 160/4.5 MCG INHALER 2 PUFF INH (07:32)
[2024-07-31] MEDS: DUONEB 3 ML INH (07:32)
[2024-07-31 07:50] VITALS: BP 149/80
[2024-07-31] MEDS: PROTONIX IV 40 MG IV (08:08)
[2024-07-31] MEDS: NSS (PRESERVATIVE FREE) 10 ML IV (08:08)
[2024-07-31] MEDS: INVANZ 60 MG IV (08:09)
[2024-07-31] MEDS: SYMMETREL 100 MG PO ×2 (08:10→20:49)
[2024-07-31] MEDS: PROZAC 20 MG PO (08:10)
[2024-07-31] MEDS: MUCINEX 600 MG PO ×2 (08:10→20:49)
[2024-07-31] MEDS: ENTEREG 12 MG PO ×2 (08:10→20:49)
[2024-07-31] MEDS: ASPIR LOW (ENTERIC COATED) 81 MG PO (08:10)
[2024-07-31] MEDS: BUSPAR 10 MG PO ×3 (08:10→21:15)
[2024-07-31] MEDS: NSS 1000 IV (08:11)
--- NOTE | 2024-07-31 08:35 | W.PN.HOSP.TC ---
Today's Communication/Plan
-
see bold
Assessment / Plan
Assessment / Plan
53 F with PMHx of COPD, Hx of pulmonary aspergilosis. RLS, HLD, GERD, MDD, Hx of diverticulitis with large bowel obstruction s/p splenic flexure takedown and colostomy on 01/03/24 admitted for planned colostomy reversal that was done on 07/28/24.
Pending return of bowel function
Gen: NAD, AAOx3.
Eyes: EOMI, PERRLA, no scleral icterus.
Neck: supple.
CV: Remains RRR, +S1/S2, no m/r/g.
Resp: CTAB, no rales, wheezes, or rhonchi.
Abd: +BS, soft, nontender, mild distention
Skin: No rashes.
Neuro: Remains CN 2-12 intact, non-focal.
Psych: Normal mood and affect.
CXR 07/28/24: Nasogastric tube tip in the stomach, though may be advanced approximately 4 cm.
Colostomy reversal on 07/28/24:
-h/o diverticulosis s/p splenic flexure takedown
-NGT in place
-cont Invanz
-cont Entereg/PPI
-pain control
-surgery managing
Fe def anemia:
-cont IV Fe
Other problems:
COPD, not in exacerbation: Continue Symbicort/Spiriva
Hematuria, likely due to traumatic rojo
HLD
Depression: Cont Buspar/Zyprexa/Prozac/Depakote
Chronic HFpEF: daily wts, I/Os
CAD s/p stress test on 07/11/24 with non-ischemic results
Spontaneous right carotid dissection discovered after ongoing migraine headaches in 2021
Hyponatremia, mild
FULL/Lovenox
Anticipated Discharge: > 48 hours
Subjective/Interval History
-
Date of Service: July 31, 2024
Currently denies abdominal pain. Denies flatus.
Objective Data
-
Labs:
Laboratory Results
07/31/24
05:41
WBC 8.4
Hgb 7.9 L
Hct 23.3 L
Plt Count 170
Sodium 133 L
Potassium 3.5
Chloride 100
Carbon Dioxide 23
BUN 9
Creatinine 0.5 L
Glucose 66 L
Calcium 7.8 L
Vital Signs:
Vital Signs
Temp Pulse Resp BP Pulse Ox
98.5 F 91 16 132/63 98
07/30/24 23:47 07/31/24 07:34 07/31/24 07:34 07/30/24 23:47 07/31/24 07:34
I&O
07/30/24 07/31/24 08/01/24
06:59 06:59 06:59
Intake Total 1730 / 1730 2679 / 2679
Output Total 2540 / 2540 1495 / 1495
Balance -810 / -810 1184 / 1184
--- NOTE | 2024-07-31 08:48 | W.PN.GS2 ---
Addendum entered and electronically signed by Shahriar Stahl MD 07/31/24 08:57:
Patient seen and examined. Agree with assessment plan as documented below.
Feels slightly improved. Less abdominal discomfort. No nausea or vomiting. Does report drinking some ice chips around NGT. No flatus or BM. Afebrile.
Gen: NAD
NGT: bilious
Abd: soft, mild tenderness, distended, palpable ventral hernia (known chronic), non-peritoneal, DAKOTA serosang
53 yo female with prior history of COPD, Hx of pulmonary aspergilosis and pelvic abscess/complicated diverticulitis s/p Sav's procedure
POD #2 robotic colostomy takedown with SBR x2 (total of 30cm) with extensive LEISA
No further fevers or tachycardia, VSS
No leukocytosis
Underlying chronic anemia with acute component secondary to hemodilution and expected operative losses, stable
Hyponatremia improving with IV NSS
NGT outputs increased as patient taking in some ice chips for comfort now
Await signs of bowel recovery, expected ileus
--Continue NPO with NGT
--Continue IVF
--PRN Analgesics. Ofirmev prn mild pain or fever
--Continue Invanz (day 3/4)
--PPI IV daily for GI ppx
--OOB/Increase activity/PT consulted
--Chemical VTE ppx with Sq Lovenox 40mg, SCDS for mechanical ppx
Original Note:
Today's Communication / Plan
-
NPO/NGT/IVF
Assessment / Plan
-
53 yo female with prior history of COPD, Hx of pulmonary aspergilosis and pelvic abscess/complicated diverticulitis s/p Sav's procedure
POD #2 robotic colostomy takedown with SBR x2 (total of 30cm) with extensive LEISA
No further fevers or tachycarida, VSS
No leukocytosis
Underlying chronic anemia with acute component secondary to hemodilution and expected operative losses, stable
Await signs of bowel recovery
Hyponatremia improving with IV NSS
NGT outputs increased as patient taking in some ice chips for comfort now
--Continue NPO with NGT
--Continue IVF
--Follow drain outputs
--Trend labs
--PRN Analgesics. Ofirmev prn mild pain or fever
--Continue Invanz (day 3/4)
--PPI IV daily for GI ppx
--Appreciate medicine service following
--OOB/Increase activity/PT consulted
--chemical VTE ppx with Sq Lovenox 40mg, SCDS for mechanical ppx
Subjective Data
-
Date of Service: July 31, 2024
Patient seen and examined with Dr. Stahl. Not yet passing flatus. Denies n/v. Pain well managed.
Objective Data
-
Intake and Output
07/30/24 07/31/24 08/01/24
06:59 06:59 06:59
Intake Total 1730 / 1730 2679 / 2679
Output Total 2540 / 2540 1495 / 1495
Balance -810 / -810 1184 / 1184
Intake:
Oral fluids 1080 / 1080 360 / 360
IV fluids (Total) 1900 / 1900
IV piggybacks 329 / 329
Amount instilled into GI Tube ( 650 / 650 90 / 90
Total)
[place] Sump 650 / 650 90 / 90
Output:
Drain Output (Total) 140 / 140 35 / 35
Right Abdomen Cole-Olmos 140 / 140 35 / 35
Gastrointestinal tube output ( 650 / 650 1460 / 1460
Total)
[place] Sump 650 / 650 1460 / 1460
Urine, Calles 1750 / 1750
Other:
Number of approximated MODERATE 2
amounts of urine
Number of approximated LARGE 1
amounts of urine
Vital Signs
Temp Pulse Resp BP Pulse Ox
98.5 F 91 16 132/63 98
07/30/24 23:47 07/31/24 07:34 07/31/24 07:34 07/30/24 23:47 07/31/24 07:34
Lab Results
07/31/24 05:41
07/31/24 05:41
Calcium 7.8 mg/dl (8.4-10.2) L 07/31/24 05:41
Phosphorus 3.2 mg/dl (2.5-4.5) 07/31/24 05:41
Magnesium 1.9 mg/dl (1.6-2.3) 07/31/24 05:41
Total Bilirubin 0.5 mg/dl (0.2-1.3) 07/30/24 05:01
AST 15 U/L (14-36) 07/30/24 05:01
ALT 12 U/L (0-35) 07/30/24 05:01
Alkaline Phosphatase 70 U/L (38-126) 07/30/24 05:01
Total Protein 5.2 g/dl (6.3-8.2) L 07/30/24 05:01
Albumin 2.6 g/dl (3.5-5.0) L 07/30/24 05:01
Physical Exam
-
Gen: NAD
HEENT: NGT with light bilious outputs
Abd: soft, approp ttp, nonperitoneal, incisions intact without erythema, drain with serosanguineous output
[2024-07-31] MEDS: FERRLECIT 110 MG IV (13:15)
[2024-07-31 15:15] VITALS: BP 149/80
[2024-07-31] MEDS: NSS IV (16:04)
--- NOTE | 2024-07-31 16:16 | W.PN.UPDATE ---
Update Note
Progress Note Update
Pt seen at bedside, chart reviewed. Has been able to continue PO medication thus far and remains stable psychiatrically - does continue to experience near nonstop movement in her feet, though as before is worried about stopping antipsychotic,
despite psychosis being due to high dose steroid both times. Pt was agreeable to trial of slight decrease however to 15mg, so as to at least decrease overall med load and hopefully avoid TD becoming permanent.
Has not been able to eat anything but few ice chips and is quite hungry, is hopeful she will be able to eat sooner than later. Otherwise doing well, mood is stable, no avh/delusions, no excessive anxiety.
Decrease zyprexa to 15mg, continue psychotropic regimen otherwise for now
[2024-07-31] MEDS: LOVENOX 40 MG SC (17:15)
[2024-07-31] MEDS: COMPAZINE 10 MG IV (18:01)
[2024-07-31 18:25] VITALS: BP 146/83
[2024-07-31] MEDS: SYMBICORT 160/4.5 MCG INHALER INH (19:38)
[2024-07-31] MEDS: ATIVAN 1 MG PO (19:42)
[2024-07-31] MEDS: ZYPREXA 15 MG PO (21:15)
[2024-07-31 23:15] VITALS: BP 129/66
[2024-08-01] MEDS: DEPACON 52.5 MG IV ×3 (00:38→16:01)
[2024-08-01] MEDS: NSS 1000 IV (01:18)
[2024-08-01] MEDS: DILAUDID 0.5 MG IV ×3 (02:50→17:37)
[2024-08-01] MEDS: TORADOL 10 MG IV ×4 (03:55→22:08)
[2024-08-01 06:00] VITALS: BMI 24.2
[2024-08-01 07:00] VITALS: BP 126/66
[2024-08-01 07:06] LABS: Hemoglobin 7.4 g/dL (12.0-16.0); Mean Corp Hgb Conc. 33.6 g/dL (33.0-37.0); Mean Corpuscular Hgb 30.6 pg (27.0-31.0); Mean Corpuscular Volume 90.9 fL (81.0-99.0); Mean Platelet Volume 9.1 fL (7.4-10.4); Platelet Count 187 10^3/uL (130-400); Red Blood Cell Count 2.42 10^6/uL (4.20-5.40); Red Cell Dist. Width 13.6 % (11.5-14.5); White Blood Cell Count 7.5 10^3/uL (4.8-10.8)
[2024-08-01 07:29] LABS: Blood Urea Nitrogen 7 mg/dl (7-17); Calcium 8.1 mg/dl (8.4-10.2); Carbon Dioxide 22 mmol/L (22-30); Chloride 103 mmol/L (98-107); Estimated Creatinine Clearance 102 ml/min; Glucose 54 mg/dl (70-99); Potassium 3.5 mmol/L (3.5-5.1); Sodium 136 mmol/L (135-145); eGFR > 60.00
[2024-08-01] MEDS: SYMBICORT 160/4.5 MCG INHALER 2 PUFF INH ×2 (07:37→19:50)
[2024-08-01] MEDS: DUONEB 3 ML INH ×2 (07:37→19:50)
[2024-08-01] MEDS: SPIRIVA RESPIMAT 2.5 MCG 2 PUFF INH (07:37)
--- NOTE | 2024-08-01 07:54 | W.PN.HOSP.TC ---
Addendum entered and electronically signed by Jesus Leo MD 08/01/24 14:07:
Severe protein calorie malnutrition
Original Note:
Today's Communication/Plan
-
see bold
Assessment / Plan
Assessment / Plan
53 F with PMHx of COPD, Hx of pulmonary aspergilosis. RLS, HLD, GERD, MDD, Hx of diverticulitis with large bowel obstruction s/p splenic flexure takedown and colostomy on 01/03/24 admitted for planned colostomy reversal that was done on 07/28/24.
Pending return of bowel function
Gen: NAD, AAOx3.
Eyes: EOMI, PERRLA, no scleral icterus.
Neck: supple.
CV: continues to remain RRR, +S1/S2, no m/r/g.
Resp: CTAB, no rales, wheezes, or rhonchi.
Abd: hypoactive BS, soft, nontender to light palpation, nondistended
Skin: No rashes.
Neuro: Remains CN 2-12 intact, non-focal.
Psych: Normal mood and affect.
CXR 07/28/24: Nasogastric tube tip in the stomach, though may be advanced approximately 4 cm.
Colostomy reversal on 07/28/24:
-h/o diverticulosis s/p splenic flexure takedown
-NGT in place
-cont Invanz
-cont Entereg/PPI
-cont IVFs (change to D5LR with hypoglycemia)
-pain control
-surgery managing
Fe def anemia:
-cont IV Fe
-should Hb drop any further stop Lovenox
Other problems:
COPD, not in exacerbation: Continue Symbicort/Spiriva
Hematuria, likely due to traumatic rojo
HLD
Depression: Cont Buspar/Zyprexa/Prozac/Depakote
Chronic HFpEF: daily wts, I/Os
CAD s/p stress test on 07/11/24 with non-ischemic results
Spontaneous right carotid dissection discovered after ongoing migraine headaches in 2021
Hyponatremia, resolved
FULL/Lovenox + SCDs
Anticipated Discharge: > 48 hours
Subjective/Interval History
-
Date of Service: August 01, 2024
Mild abdominal pain, passing flatus, no BM.
Objective Data
-
Labs:
Laboratory Results
08/01/24
06:06
WBC 7.5
Hgb 7.4 L
Hct 22.0 L
Plt Count 187
Sodium 136
Potassium 3.5
Chloride 103
Carbon Dioxide 22
BUN 7
Creatinine 0.4 L
Glucose 54 L*
Calcium 8.1 L
Vital Signs:
Vital Signs
Temp Pulse Resp BP Pulse Ox
98.9 F 92 16 126/66 98
08/01/24 07:00 08/01/24 07:42 08/01/24 07:42 08/01/24 07:00 08/01/24 07:42
I&O
07/31/24 08/01/24 08/02/24
06:59 06:59 06:59
Intake Total 2679 / 2679 1620 / 1620
Output Total 1495 / 1495 1180 / 1180
Balance 1184 / 1184 440 / 440
[2024-08-01] MEDS: D5LR 1000 IV ×2 (08:32→20:34)
[2024-08-01] MEDS: ASPIR LOW (ENTERIC COATED) 81 MG PO (08:33)
[2024-08-01] MEDS: MUCINEX 600 MG PO ×2 (08:33→19:33)
[2024-08-01] MEDS: SYMMETREL 100 MG PO ×2 (08:33→19:33)
[2024-08-01] MEDS: PROTONIX IV 40 MG IV (08:33)
[2024-08-01] MEDS: ATIVAN 1 MG PO ×3 (08:33→22:53)
[2024-08-01] MEDS: ENTEREG 12 MG PO ×2 (08:33→19:33)
[2024-08-01] MEDS: BUSPAR 10 MG PO ×3 (08:34→22:08)
[2024-08-01] MEDS: INVANZ 60 MG IV (08:34)
[2024-08-01] MEDS: PROZAC 20 MG PO (08:34)
[2024-08-01] MEDS: NSS (PRESERVATIVE FREE) 10 ML IV (08:34)
--- NOTE | 2024-08-01 10:44 | W.PN.CRS1 ---
Today's Communication / Plan
-
Continue current measures.
Assessment/Plan
-
POD 4.
1. afebrile. Vitals reasonable. WBC 7.5. Hg 7.3. Hg to be rechecked at noon. If drifts further may consider transfusion.
2. on empiric Invanz due to minor spillage in OR. Hope to d/c over next few days.
3. passing flatus now. NGT output over a L in 24 hrs and bilious. Abdominal film today reviewed. Read as 'paucity of intestinal bowel gas'--of note there is however what appears to be colonic and rectal gas. Keeping NGT for now but may consider
clamping trial tomorrow.
4. OOB/PT.
5. continue other measures.
6. appreciate help of consultants.
Subjective Data
Procedure
1) robotic colostomy takedown 2) sigmoidectomy 3) partial small bowel resection X 2 3) extensive lysis of adhesions 4) flexible sigmoidoscopy on 07/28/24
Subjective Data
Date of Service: August 01, 2024
Seen earlier today.
Had some nausea yesterday. No nausea today. Had flatus.
Restless legs.
Pain control reasonable.
Objective Data
-
Vital Signs
Temp Pulse Resp BP Pulse Ox
98.9 F 92 16 126/66 98
08/01/24 07:00 08/01/24 07:42 08/01/24 07:42 08/01/24 07:00 08/01/24 07:42
Intake & Output
07/31/24 08/01/24 08/02/24
06:59 06:59 06:59
Intake Total 2679 / 2679 1620 / 1620
Output Total 1495 / 1495 1180 / 1180
Balance 1184 / 1184 440 / 440
Intake:
Oral fluids 360 / 360 240 / 240
IV fluids (Total) 1900 / 1900 1200 / 1200
IV piggybacks 329 / 329
Amount instilled into GI Tube ( 90 / 180 / 180
Total)
[place]oyd Sump 90 / 90 180 / 180
Output:
Drain Output (Total) 20
Right Abdomen Cole-Olmos
Gastrointestinal tube output ( 1460 / 1460 1160 / 1160
Total)
Floyd Sump 1460 / 1460 1160 / 1160
Other:
Number of approximated MODERATE 2 1
amounts of urine
Number of approximated LARGE 1 1
amounts of urine
Lab Results
08/01/24 06:06
Physical Exam
-
General: No Acute Distress
Chest: Clear
Cardiovascular: Regular Rate & Rhythm
Abdomen: Distended (mild distension) and Tender (mild incisional)
Neurological: No Motor Deficits
Wound: Other (dressings to former colostomy site changed--looked fine)
Incision: Clear, Dry, Intact and No Skin Erythema
Data Reviewed
-
Diagnostic Radiology: Image Reviewed and Report Reviewed
--- NOTE | 2024-08-01 12:17 | CM ---
Chart reviewed
NGT, IVF's
Pain management
CM cont to follow for discharge needs
Plan - anticipate home with VN when medically ready
[2024-08-01 12:58] VITALS: BP 131/67; PULSE 89; O2SAT 98
--- NOTE | 2024-08-01 13:28 | PN.CDI ---
CDI
- -
CDI:
Physician Documentation Request
Admit Date: 07/28/24 06:18
Dear Doctor Ahmet,
Patient admitted with diverticulosis.
07/30 Parachute Taper Assessment: 'Significant 34lb, 22.9% wt loss x past 6 months related to prolonged hospitalizations for bowel resections...Pt meets ASPEN criteria for severe protein calorie malnutrition of chronic illness with >10% wt loss
x 6 months, decreased ability to consume sufficient energy (<75% x >1 mo). '
Based on the above information and your assessment, which of the following most accurately represents the patient's nutritional status?
Severe protein calorie malnutrition
Other
[place] Criteria ([facility] Hospitalist 2017)
2 or more criteria must be present for either
non severe or severe malnutrition
Note that the criteria differs related to the
presence of an acute or chronic illness
Acute Illness Chronic Illness
Energy Intake Non Severe: <75% for >7 days Non Severe: <75% for >1 month
Severe: <50% for >5 days Severe: <75% for >1 month
Weight Loss Non Severe: 1-2% over 1 week Non Severe: 5% over 1 month
5% over 1 month 7.5% over 3 months
7.5% over 3 months 10% over 6 months
1 year N/A 20% over 1 year
Severe: >2% over 1 week Severe: >5% over 1 month
>5% over 1 month >7.5% over 3 months
>7.5% over 3 months >10% over 6 months
1 year N/A >20% over 1 year
Body Fat Non Severe: Mild Decrease Non Severe: Mild Loss
Severe: Moderate Decrease Severe: Severe Loss
Muscle Mass Non Severe: Mild Decrease Non Severe: Mild Loss
Severe: Moderate Decrease Severe: Severe Loss
Fluid Accumulation Non Severe: Mild Accumulation Non Severe: Mild Accumulation
Severe: Moderate to severe Severe: Moderate to severe
accumulation accumulation
Reduced Lift Slab Operator Strength Non Severe: N/A Non Severe: N/A
Severe: Measurably reduced Severe: Measurably reduced
Additional criteria that can be used to Determine if Mild or Moderate Malnutrition ([employer] Manual 2018)
Mild Moderate Severe
Albumin gm/dl <3.0 gm/dl <2.5 gm/dl <2.0 gm/dl
Pre Albumin mg/dl <15 gm/dl <10 mg/dl <5.0 mg/dl
BMI <18.5 <17 <16
Use of terms such as suspected, likely, concern for, or probable (associated with a specific diagnosis that is being evaluated, monitored, or treated as if it exists) are acceptable and can be coded in the inpatient setting, when documented at the
time of discharge.
Thank you,
Radha Montes RN, BSN
CDI Specialist
Available via [employer] text
Please use your independent medical judgment in providing your response.
[2024-08-01] MEDS: FERRLECIT 110 MG IV (13:37)
[2024-08-01 14:24] LABS: Hemoglobin 7.3 g/dL (12.0-16.0)
[2024-08-01 15:00] VITALS: BP 138/66
[2024-08-01] MEDS: LOVENOX 40 MG SC (17:29)
[2024-08-01] MEDS: ZYPREXA 15 MG PO (22:08)
[2024-08-01 23:45] VITALS: BP 141/69
[2024-08-02] MEDS: DEPACON 52.5 MG IV ×3 (01:00→16:00)
[2024-08-02] MEDS: TORADOL 10 MG IV ×2 (03:41→09:55)
[2024-08-02 06:00] VITALS: BMI 23.8
[2024-08-02 06:24] LABS: Hematocrit 22.1 % (37.0-47.0); Hemoglobin 7.3 g/dL (12.0-16.0); Mean Corpuscular Volume 90.9 fL (81.0-99.0); Mean Platelet Volume 8.6 fL (7.4-10.4); Platelet Count 220 10^3/uL (130-400); Red Blood Cell Count 2.43 10^6/uL (4.20-5.40); Red Cell Dist. Width 13.5 % (11.5-14.5); White Blood Cell Count 5.2 10^3/uL (4.8-10.8)
[2024-08-02 06:54] LABS: Blood Urea Nitrogen 6 mg/dl (7-17); Calcium 8.3 mg/dl (8.4-10.2); Carbon Dioxide 24 mmol/L (22-30); Chloride 104 mmol/L (98-107); Estimated Creatinine Clearance 102 ml/min; Glucose 86 mg/dl (70-99); Potassium 3.1 mmol/L (3.5-5.1); Sodium 137 mmol/L (135-145); eGFR > 60.00
[2024-08-02 07:00] VITALS: BP 162/86
[2024-08-02] MEDS: SYMBICORT 160/4.5 MCG INHALER 2 PUFF INH ×2 (07:07→20:25)
[2024-08-02] MEDS: VENTOLIN NEBULES 2.5 MG INH (07:08)
[2024-08-02] MEDS: SPIRIVA RESPIMAT 2.5 MCG 2 PUFF INH (07:08)
[2024-08-02] MEDS: NSS (PRESERVATIVE FREE) 10 ML IV (08:04)
[2024-08-02] MEDS: DILAUDID 0.5 MG IV ×2 (08:04→21:29)
[2024-08-02] MEDS: PROTONIX IV 40 MG IV (08:04)
[2024-08-02] MEDS: BUSPAR 10 MG PO ×3 (08:06→22:21)
[2024-08-02] MEDS: ASPIR LOW (ENTERIC COATED) 81 MG PO (08:06)
[2024-08-02] MEDS: MUCINEX 600 MG PO ×2 (08:06→20:30)
[2024-08-02] MEDS: SYMMETREL 100 MG PO ×2 (08:06→20:30)
[2024-08-02] MEDS: PROZAC 20 MG PO (08:06)
[2024-08-02] MEDS: ENTEREG 12 MG PO ×2 (08:06→20:31)
[2024-08-02] MEDS: INVANZ 60 MG IV (08:06)
--- NOTE | 2024-08-02 08:11 | W.PN.HOSP.TC ---
Today's Communication/Plan
-
see bold
Assessment / Plan
Assessment / Plan
53 F with PMHx of COPD, Hx of pulmonary aspergilosis. RLS, HLD, GERD, MDD, Hx of diverticulitis with large bowel obstruction s/p splenic flexure takedown and colostomy on 01/03/24 admitted for planned colostomy reversal that was done on 07/28/24.
Pending return of bowel function
Gen: remains NAD, AAOx3.
Eyes: EOMI, PERRLA, no scleral icterus.
Neck: supple.
CV: RRR, +S1/S2, no m/r/g.
Resp: CTAB, no rales, wheezes, or rhonchi.
Abd: +BS, soft, nontender to light palpation, nondistended
Skin: No rashes.
Neuro: continues to remain CN 2-12 intact, non-focal.
Psych: Normal mood and affect.
CXR 07/28/24: Nasogastric tube tip in the stomach, though may be advanced approximately 4 cm.
Abd Xray: o evidence of acute pathology
Colostomy reversal on 07/28/24:
-h/o diverticulosis s/p splenic flexure takedown
-NGT in place
-cont Invanz
-cont Entereg/PPI
-cont IVFs (changed to D5LR with hypoglycemia)
-pain control
-surgery managing
Fe def anemia:
-cont IV Fe
-Hb stable
Other problems:
COPD, not in exacerbation: Continue Symbicort/Spiriva
Hematuria, likely due to traumatic rojo
HLD
Depression: Cont Buspar/Zyprexa/Prozac/Depakote
Chronic HFpEF: daily wts, I/Os
CAD s/p stress test on 07/11/24 with non-ischemic results
Spontaneous right carotid dissection discovered after ongoing migraine headaches in 2021
Hyponatremia, resolved
Hypokalemia: 40meq IV K
FULL/Lovenox + SCDs
Anticipated Discharge: > 48 hours
Subjective/Interval History
-
Date of Service: August 02, 2024
No new complaints.
Objective Data
-
Labs:
Laboratory Results
08/02/24
05:45
WBC 5.2
Hgb 7.3 L
Hct 22.1 L
Plt Count 220
Sodium 137
Potassium 3.1 L
Chloride 104
Carbon Dioxide 24
BUN 6 L
Creatinine 0.4 L
Glucose 86
Calcium 8.3 L
Vital Signs:
Vital Signs
Temp Pulse Resp BP Pulse Ox
98.3 F 90 16 162/86 98
08/02/24 07:00 08/02/24 07:11 08/02/24 07:11 08/02/24 07:00 08/02/24 07:11
I&O
08/01/24 08/02/24 08/03/24
06:59 06:59 06:59
Intake Total 1620 / 1620 1488 / 1488
Output Total 1180 / 1180 850 / 850
Balance 440 / 440 638 / 638
--- NOTE | 2024-08-02 08:50 | W.PN.CRS1 ---
Today's Communication / Plan
-
� As below
Assessment/Plan
-
53-year-old female with PMH of COPD, RLS, HLD, GERD, MDD, pulmonary aspergillosis, bronchiectasis who presented for elective colostomy reversal
POD 5 robotic end colostomy reversal with small bowel resection x 2 and extensive lysis of adhesions
AFVSS
WBC 5.2 from 7.5, Hb 7.3 from 7.4, Cr 0.4
�Continue n.p.o. with NGT; will get repeat AXR and perform clamp trial for 4 hours
� Continue pain control with Tylenol, Toradol, Dilaudid as needed
� Continue DVT PPx with Lovenox; Hb stable, no concern for bleeding, no need to trend CBC
�Continue home meds
� Will DC antibiotics, s/p 4 days of ertapenem for mild intra-op spillage
� OOB/IS, appreciate PT
� Appreciate hospitalist
Subjective Data
Procedure
1) robotic colostomy takedown 2) sigmoidectomy 3) partial small bowel resection X 2 3) extensive lysis of adhesions 4) flexible sigmoidoscopy on 07/28/24
Subjective Data
Date of Service: August 02, 2024
No overnight events.
Pain controlled.
Denies nausea/vomiting. Took in about 3 Styrofoam cups of ice over the last day.
+flatus -BMs +voiding
Pt is OOB.
Objective Data
-
Vital Signs
Temp Pulse Resp BP Pulse Ox
98.3 F 90 16 162/86 98
08/02/24 07:00 08/02/24 07:11 08/02/24 07:11 08/02/24 07:00 08/02/24 07:11
Intake & Output
08/01/24 08/02/24 08/03/24
06:59 06:59 06:59
Intake Total 1620 / 1620 1488 / 1488
Output Total 1180 / 1180 850 / 850
Balance 440 / 440 638 / 638
Intake:
Oral fluids 240 / 240 60 / 60
IV fluids (Total) 1200 / 1200 960 / 960
IV piggybacks 168 / 168
Amount instilled into GI Tube ( 180 / 180 300 / 300
Total)
[place] Sump 180 / 180 300 / 300
Output:
Drain Output (Total)
Right Abdomen Cole-Olmos
Gastrointestinal tube output ( 1160 / 1160 840 / 840
Total)
[place] Sump 1160 / 1160 840 / 840
Other:
Number of approximated SMALL 1
amounts of urine
Number of approximated MODERATE 1 1
amounts of urine
Number of approximated LARGE 1 1
amounts of urine
Lab Results
08/02/24 05:45
08/02/24 05:45
Physical Exam
-
General: No Acute Distress and AOx3
HEENT: Grossly Normal
Abdomen: Soft, Distended (Minimally distended, nontympanic), Tender (Appropriately tender near incisions), No Guarding and No Rebound
Skin: Warm and Dry
Wound: No Signs of Infection, Dressing Changed (Ostomy dressing changed, some strikethrough, no erythema or purulent drainage), Dressing in Place (Port site incisions well-approximated without erythema or drainage, covered in Dermabond), No Skin
Erythema and Other (DAKOTA-10 cc serosanguineous)
[2024-08-02] MEDS: KCL 270 MEQ IV (09:54)
[2024-08-02] MEDS: D5LR IV (09:54)
[2024-08-02 12:16] VITALS: BP 149/84; PULSE 94
[2024-08-02] MEDS: FERRLECIT 110 MG IV (14:04)
[2024-08-02 15:00] VITALS: BP 163/84
--- NOTE | 2024-08-02 16:11 | CM ---
Patient seen at bedside.
PT rec HH
Patient states had [facility] in past.
[facility]
PLAN: Discharge to home when stable with VN
[2024-08-02] MEDS: LOVENOX 40 MG SC (17:24)
[2024-08-02] MEDS: ATIVAN 1 MG PO (22:21)
[2024-08-02] MEDS: D5LR 1000 IV (22:22)
[2024-08-02] MEDS: ZYPREXA 15 MG PO (22:22)
[2024-08-02 23:25] VITALS: BP 142/66
[2024-08-03] MEDS: OFIRMEV 100 IV (00:40)
[2024-08-03 01:04] LABS: Lactic Acid 0.6 mmol/L (0.7-2.0)
[2024-08-03 01:07] LABS: COVID-19 Antigen Negative (Negative)
[2024-08-03] MEDS: DEPACON 52.5 MG IV ×3 (01:33→17:25)
--- NOTE | 2024-08-03 01:57 | PTCARENOTE ---
Pt's temp 101. No other symptoms. Pt comfortable, warm to touch. House PCAS made aware, tylenol and labs ordered. Pt agreeable.
[2024-08-03 06:00] VITALS: BMI 23.9
[2024-08-03] MEDS: SYMBICORT 160/4.5 MCG INHALER 2 PUFF INH ×2 (07:26→16:06)
[2024-08-03] MEDS: SPIRIVA RESPIMAT 2.5 MCG 2 PUFF INH (07:26)
[2024-08-03 08:16] VITALS: BP 150/81
--- NOTE | 2024-08-03 08:32 | W.PN.HOSP.TC ---
Today's Communication/Plan
-
see bold
Assessment / Plan
Assessment / Plan
Gen: NAD, AAOx3.
Eyes: EOMI, PERRLA, no scleral icterus.
Neck: supple.
CV: remains RRR, +S1/S2, no m/r/g.
Resp: CTAB anteriorly, no rales, wheezes, or rhonchi.
Abd: +BS, soft, nontender to light palpation, mild distention
Skin: No rashes.
Neuro: continues to remain CN 2-12 intact, non-focal.
Psych: Normal mood and affect.
CXR 07/28/24: Nasogastric tube tip in the stomach, though may be advanced approximately 4 cm.
Abd Xray: No evidence of acute pathology
Colostomy reversal on 07/28/24:
-h/o diverticulosis s/p splenic flexure takedown
-NGT in place
-cont Invanz
-cont Entereg/PPI
-cont IVFs (changed to D5LR with hypoglycemia)
-pain control
-surgery managing, discussed with Dr. Ernst
-fever O/N, check CT A/P. Unclear why U/A was ordered and urine results should be disregarded.
Fe def anemia:
-cont IV Fe
-Hb stable
Other problems:
COPD, not in exacerbation: Continue Symbicort/Spiriva
Hematuria, likely due to traumatic rojo
HLD
Depression: Cont Buspar/Zyprexa/Prozac/Depakote
Chronic HFpEF: daily wts, I/Os
CAD s/p stress test on 07/11/24 with non-ischemic results
Spontaneous right carotid dissection discovered after ongoing migraine headaches in 2021
Hyponatremia, resolved
Hypokalemia: IV K
FULL/Lovenox + SCDs
Anticipated Discharge: > 48 hours
Subjective/Interval History
-
Date of Service: August 03, 2024
Mild abd pain. No BM or flatus.
Objective Data
-
Labs:
Laboratory Results
08/03/24
08:31
WBC Pending
Hgb Pending
Hct Pending
Plt Count Pending
Sodium Pending
Potassium Pending
Chloride Pending
Carbon Dioxide Pending
BUN Pending
Creatinine Pending
Glucose Pending
Calcium Pending
Vital Signs:
Vital Signs
Temp Pulse Resp BP Pulse Ox
99.3 F 84 16 150/81 93
08/03/24 08:16 08/03/24 08:16 08/03/24 08:16 08/03/24 08:16 08/03/24 08:16
I&O
08/02/24 08/03/24 08/04/24
06:59 06:59 06:59
Intake Total 1488 / 1488 1600 / 1600 1780 / 1780
Output Total 850 / 850 15
Balance 638 / 638 1600 / 1600 1765 / 1765
[2024-08-03 09:04] LABS: % Basophils 0.4 % (0-2); % Immature Granulocytes 0.4 % (0-0.5); % Lymphocytes 16.8 % (20.5-51.1); % Neutrophils 70.4 % (42.2-75.2); Absolute Eosinophils 0.3 10^3/uL (0-0.7); Absolute Lymphocytes 1.2 10^3/uL (1.2-3.4); Absolute Monocytes 0.6 10^3/uL (0.1-0.6); Absolute Neutrophils 4.9 10^3/uL (1.4-6.5); Hemoglobin 7.6 g/dL (12.0-16.0); Mean Corpuscular Hgb 30.4 pg (27.0-31.0); Mean Platelet Volume 8.6 fL (7.4-10.4); Nucleated Red Blood Cells % 0 %; Platelet Count 252 10^3/uL (130-400); Red Cell Dist. Width 13.8 % (11.5-14.5)
[2024-08-03] MEDS: SYMMETREL 100 MG PO ×2 (09:23→20:14)
[2024-08-03] MEDS: MUCINEX 600 MG PO ×2 (09:23→20:14)
[2024-08-03] MEDS: ENTEREG 12 MG PO ×2 (09:24→20:14)
[2024-08-03] MEDS: PROTONIX IV 40 MG IV (09:24)
[2024-08-03] MEDS: PROZAC 20 MG PO (09:24)
[2024-08-03] MEDS: ASPIR LOW (ENTERIC COATED) 81 MG PO (09:24)
[2024-08-03] MEDS: BUSPAR 10 MG PO ×3 (09:24→22:31)
[2024-08-03] MEDS: INVANZ 60 MG IV (09:25)
[2024-08-03] MEDS: NSS (PRESERVATIVE FREE) 10 ML IV (09:25)
[2024-08-03 09:27] LABS: Blood Urea Nitrogen < 2 mg/dl (7-17); Calcium 8.4 mg/dl (8.4-10.2); Carbon Dioxide 29 mmol/L (22-30); Chloride 100 mmol/L (98-107); Estimated Creatinine Clearance 102 ml/min; Glucose 114 mg/dl (70-99); Sodium 137 mmol/L (135-145); eGFR > 60.00
[2024-08-03 10:19] LABS: Urine Albumin Negative (Neg - Trace); Urine Bilirubin Negative (Negative); Urine Character Clear (Clear); Urine Color Yellow; Urine Glucose Negative (Negative); Urine Ketone Negative (Negative); Urine Leukocyte Negative (Negative); Urine Nitrite Negative (Negative); Urine Occult Blood Negative (Negative); Urine Specific Gravity 1.005 (<1.030); Urine Urobilinogen Negative (Neg - 1+)
[2024-08-03] MEDS: ZOFRAN 4 MG IV ×2 (10:40→18:39)
[2024-08-03] MEDS: D5LR IV (10:46)
[2024-08-03] MEDS: OMNIPAQUE 50 ML PO (11:00)
--- NOTE | 2024-08-03 11:00 | W.PN.GS2 ---
Today's Communication / Plan
-
CT
Assessment / Plan
-
53 yo female with prior history of COPD, Hx of pulmonary aspergilosis and pelvic abscess/complicated diverticulitis s/p Sav's procedure
POD #6 robotic colostomy takedown with SBR x2 (total of 30cm) with extensive LEISA
New fever to 101F overnight, increased nausea
No leukocytosis
Underlying chronic anemia with acute component secondary to hemodilution and expected operative losses, stable
Await signs of bowel recovery
Hyponatremia resolved
--CT A/P
--Continue Invanz
--Back down to NPO with sips
--Continue IVF
--Follow drain outputs
--Trend labs
--PRN Analgesics. Ofirmev prn mild pain or fever
--PPI IV daily for GI ppx
--Appreciate medicine service following
--OOB/Increase activity/PT consulted
--chemical VTE ppx with Sq Lovenox 40mg, SCDS for mechanical ppx
Subjective Data
-
Date of Service: August 03, 2024
101F Tmax o/n, new onset nausea not well controlled with compazine, no vomiting, pain about the same, denies flatus/BM
Objective Data
-
Intake and Output
08/02/24 08/03/24 08/04/24
06:59 06:59 06:59
Intake Total 1488 / 1488 1600 / 1600 1780 / 1780
Output Total 850 / 850 15 / 15
Balance 638 / 638 1600 / 1600 1765 / 1765
Intake:
Oral fluids 60 / 60 440 / 440 720 / 720
IV fluids (Total) 960 / 960 960 / 960 960 / 960
IV piggybacks 168 / 168 200 / 200 100 / 100
Amount instilled into GI Tube ( 300 / 300
Total)
[place] Sump 300 / 300
Output:
Drain Output (Total)
Right Abdomen Cole-Olmos
Gastrointestinal tube output ( 840 / 840
Total)
[place] Sump 840 / 840
Other:
Number of approximated SMALL 1
amounts of urine
Number of approximated MODERATE 1 2 3
amounts of urine
Number of approximated LARGE 1 2
amounts of urine
Vital Signs
Temp Pulse Resp BP Pulse Ox
99.3 F 84 16 150/81 93
08/03/24 08:16 08/03/24 08:16 08/03/24 08:16 08/03/24 08:16 08/03/24 08:16
Lab Results
08/03/24 08:49
08/03/24 08:49
Calcium 8.4 mg/dl (8.4-10.2) 08/03/24 08:49
Phosphorus 3.2 mg/dl (2.5-4.5) 07/31/24 05:41
Magnesium 1.9 mg/dl (1.6-2.3) 07/31/24 05:41
Total Bilirubin 0.5 mg/dl (0.2-1.3) 07/30/24 05:01
AST 15 U/L (14-36) 07/30/24 05:01
ALT 12 U/L (0-35) 07/30/24 05:01
Alkaline Phosphatase 70 U/L (38-126) 07/30/24 05:01
Total Protein 5.2 g/dl (6.3-8.2) L 07/30/24 05:01
Albumin 2.6 g/dl (3.5-5.0) L 07/30/24 05:01
Physical Exam
-
Gen: NAD
Abd: soft, approp ttp, incisions cdi
[2024-08-03] MEDS: DILAUDID 0.5 MG IV ×3 (11:39→23:25)
[2024-08-03] MEDS: D5/0.45%NSS with KCL 40 MEQ 1000 IV (11:58)
[2024-08-03] MEDS: FERRLECIT 110 MG IV (14:40)
[2024-08-03 15:46] VITALS: BP 165/90
[2024-08-03] MEDS: LOVENOX 40 MG SC (17:25)
[2024-08-03] MEDS: ATIVAN 1 MG PO (20:14)
[2024-08-03] MEDS: ZYPREXA 15 MG PO (22:31)
[2024-08-03 23:50] VITALS: BP 158/86
[2024-08-04] MEDS: DEPACON 52.5 MG IV ×3 (00:40→17:32)
[2024-08-04] MEDS: D5/0.45%NSS with KCL 40 MEQ 1000 IV (04:28)
[2024-08-04] MEDS: DILAUDID 0.5 MG IV ×3 (05:02→17:53)
[2024-08-04] MEDS: ZOFRAN 4 MG IV ×2 (05:02→12:57)
[2024-08-04 06:00] VITALS: BMI 23.6
[2024-08-04 07:02] LABS: Hematocrit 26.2 % (37.0-47.0); Hemoglobin 8.6 g/dL (12.0-16.0); Mean Corp Hgb Conc. 32.8 g/dL (33.0-37.0); Mean Corpuscular Hgb 29.9 pg (27.0-31.0); Mean Platelet Volume 8.7 fL (7.4-10.4); Platelet Count 257 10^3/uL (130-400); Red Blood Cell Count 2.88 10^6/uL (4.20-5.40); Red Cell Dist. Width 13.7 % (11.5-14.5); White Blood Cell Count 8.1 10^3/uL (4.8-10.8)
[2024-08-04] MEDS: SPIRIVA RESPIMAT 2.5 MCG 2 PUFF INH (07:28)
[2024-08-04] MEDS: SYMBICORT 160/4.5 MCG INHALER 2 PUFF INH ×2 (07:28→19:09)
[2024-08-04 07:32] LABS: Blood Urea Nitrogen < 2 mg/dl (7-17); Calcium 8.2 mg/dl (8.4-10.2); Carbon Dioxide 32 mmol/L (22-30); Chloride 97 mmol/L (98-107); Estimated Creatinine Clearance 102 ml/min; Glucose 118 mg/dl (70-99); Potassium 3.5 mmol/L (3.5-5.1); Sodium 136 mmol/L (135-145); eGFR > 60.00
[2024-08-04 08:00] VITALS: BP 153/82
[2024-08-04] MEDS: ENTEREG 12 MG PO ×2 (08:46→19:58)
[2024-08-04] MEDS: SYMMETREL 100 MG PO ×2 (08:46→19:58)
[2024-08-04] MEDS: MUCINEX 600 MG PO ×2 (08:46→19:58)
[2024-08-04] MEDS: ASPIR LOW (ENTERIC COATED) 81 MG PO (08:46)
[2024-08-04] MEDS: PROZAC 20 MG PO (08:46)
--- NOTE | 2024-08-04 08:46 | W.PN.CRS1 ---
Today's Communication / Plan
-
� As below
Assessment/Plan
-
53-year-old female with PMH of COPD, RLS, HLD, GERD, MDD, pulmonary aspergillosis, bronchiectasis who presented for elective colostomy reversal
POD 7 robotic end colostomy reversal with small bowel resection x 2 and extensive lysis of adhesions
08/03 CT (for fever)�postoperative changes, contrast extending into the proximal jejunum
AFVSS
WBC 8.1 from 7.0, Hb 8.6 from 7.6, CR 0.4
�Continue n.p.o. with IVF; will repeat AXR to follow the oral contrast
� Continue pain control with Tylenol, Toradol, Dilaudid as needed
� Continue DVT PPx with Lovenox; Hb stable, no concern for bleeding, no need to trend CBC
�Continue home meds
� Cont abx for another 1-2 days pending clinical course
� OOB/IS, appreciate PT
� Appreciate hospitalist
Subjective Data
Procedure
1) robotic colostomy takedown 2) sigmoidectomy 3) partial small bowel resection X 2 3) extensive lysis of adhesions 4) flexible sigmoidoscopy on 07/28/24
Subjective Data
Date of Service: August 04, 2024
No overnight events.
Nausea somewhat improved with Zofran, denies any vomiting. Denies feeling distended
Pain controlled.
Had a little flatus today, no BMs yet.
Objective Data
-
Vital Signs
Temp Pulse Resp BP Pulse Ox
98.9 F 73 16 158/86 96
08/03/24 23:50 08/04/24 07:31 08/04/24 07:31 08/03/24 23:50 08/04/24 07:31
Intake & Output
08/03/24 08/04/24 08/05/24
06:59 06:59 06:59
Intake Total 1600 / 1600 4586 / 4586
Output Total 385 / 385
Balance 1600 / 1600 4201 / 4201
Intake:
Oral fluids 440 / 440 1440 / 1440
IV fluids (Total) 960 / 960 2720 / 2720
IV piggybacks 200 / 200 426 / 426
Output:
Drain Output (Total)
Right Abdomen Cole-Olmos
Urine, Voided 350 / 350
Other:
Number of approximated MODERATE 2 1
amounts of urine
Number of approximated LARGE 1
amounts of urine
Lab Results
08/04/24 05:42
08/04/24 05:42
Physical Exam
-
General: No Acute Distress (Sleepy but alert) and AOx3
HEENT: Grossly Normal
Abdomen: Soft, Distended (Minimally distended, stable from 2 days ago), Tender (Appropriately tender near incisions), No Guarding and No Rebound
Skin: Warm and Dry
Wound: No Signs of Infection, Dressing in Place (With Dermabond), No Skin Erythema and Other (Ostomy wound changed, Telfa nadira removed, no surrounding erythema or purulent drainage)
[2024-08-04] MEDS: NSS (PRESERVATIVE FREE) 10 ML IV (08:47)
[2024-08-04] MEDS: BUSPAR 10 MG PO ×3 (08:47→21:18)
[2024-08-04] MEDS: PROTONIX IV 40 MG IV (08:47)
[2024-08-04] MEDS: INVANZ 60 MG IV (08:47)
--- NOTE | 2024-08-04 10:19 | W.PN.HOSP.TC ---
Today's Communication/Plan
-
see bold
Assessment / Plan
Assessment / Plan
Gen: NAD, AAOx3.
Eyes: EOMI, PERRLA, no scleral icterus.
Neck: supple.
CV: continues to remain RRR, +S1/S2, no m/r/g.
Resp: remains CTAB anteriorly, no rales, wheezes, or rhonchi.
Abd: +BS, soft, nontender to light palpation, mild distention
Skin: No rashes.
Neuro: continues to remain CN 2-12 intact, non-focal.
Psych: Normal mood and affect.
CT A/P: Postoperative changes of prior colectomy and partial small bowel resection with likely left lower quadrant ostomy reversal. There is small volume pneumoperitoneum which is likely postoperative in nature. There is no drainable fluid
collection. There is a small focus of free fluid within the left lower quadrant which extends anterior to the uterus which is likely postoperative in nature, although developing collection is possible. There is mild left-sided hydronephrosis without
discrete obstruction identified. Oral contrast extends into the proximal jejunum however there are no findings to suggest small bowel obstruction. Diastases recti with postoperative changes in the anterior abdominal wall.
Abd Xray 08/04/24: Stable examination. Right-sided surgical drain in unchanged position. Unchanged mild gaseous distention of the proximal colon. Distal colon not visualized, decompressed. No evidence for small bowel obstruction.
Colostomy reversal on 07/28/24:
-h/o diverticulosis s/p splenic flexure takedown
-NGT removed
-cont Invanz
-cont Entereg/PPI
-cont IVFs (changed to D5LR with hypoglycemia)
-pain control
-surgery managing, discussed with Dr. Ernst
-CT A/P above, no drainable collection
-isolated fever on 08/02/24, now resolved
Fe def anemia:
-cont IV Fe
-Hb stable
Other problems:
COPD, not in exacerbation: Continue Symbicort/Spiriva
Hematuria, was likely due to traumatic rojo
HLD
Depression: Cont Buspar/Zyprexa/Prozac/Depakote
Chronic HFpEF: daily wts, I/Os
CAD s/p stress test on 07/11/24 with non-ischemic results
Spontaneous right carotid dissection discovered after ongoing migraine headaches in 2021
Hyponatremia, resolved
Hypokalemia, resolved
FULL/Lovenox + SCDs
Anticipated Discharge: > 48 hours
Subjective/Interval History
-
Date of Service: August 04, 2024
Objective Data
-
Labs:
Laboratory Results
08/04/24
05:42
WBC 8.1
Hgb 8.6 L
Hct 26.2 L
Plt Count 257
Sodium 136
Potassium 3.5
Chloride 97 L
Carbon Dioxide 32 H
BUN < 2 L
Creatinine 0.4 L
Glucose 118 H
Calcium 8.2 L
Vital Signs:
Vital Signs
Temp Pulse Resp BP Pulse Ox
98.6 F 83 16 153/82 93
08/04/24 08:00 08/04/24 08:00 08/04/24 08:00 08/04/24 08:00 08/04/24 08:00
I&O
08/03/24 08/04/24 08/05/24
06:59 06:59 06:59
Intake Total 1600 / 1600 4586 / 4586
Output Total 385 / 385 700 / 700
Balance 1600 / 1600 4201 / 4201 -700 / -700
--- NOTE | 2024-08-04 11:37 | W.PN.UPDATE ---
Update Note
Progress Note Update
patient seen chart reviewed. discussed with nursing. ms omlina is very well known to me from a long prior hospital stay. at that time she had developed what eventually we felt was tardive dyskinesia. she was helped by mikey. she was dc but
tells me she had more medical problems in the ensuing months including respiratory and cardiac issues. she at this point is not feeling too badly psychiatrically. she is taking zyprexa 15 mg qd depakote 500 tid prozac 20 mg buspar 10 tid
amantadine 100 bid ativan and trazodone prn. she feels these are helping and she does not want to make a change. i do not see obvious td at this time which should be monitored. i did tell her if weight gain was an issue which she does not believe
now she should reconsider zyprexa given hx chf. she does have a psychiatrist she likes as out pt. depakote level only 35. not sure at this dose what it is doing. in the past i had considered stopping it as it was not clear it was doing much
although she did not want to. . it too can contribute to weight gain. will follow while she is here.
[2024-08-04 16:00] VITALS: BP 163/96
--- NOTE | 2024-08-04 16:29 | CM ---
Chart reviewed
Rene to follow at d/c
Plan - home with Rene when medically stable
[2024-08-04] MEDS: LOVENOX 40 MG SC (17:33)
--- NOTE | 2024-08-04 18:14 | PTCARENOTE ---
patient vomited a moderate amount.It was greenin color.She contibues to report positive flatus but has not had any bowel movement yet.Patient encouraged to ambulate more.
[2024-08-04] MEDS: D5/0.45%NSS with KCL 40 MEQ IV (20:08)
[2024-08-04] MEDS: ATIVAN 1 MG PO (21:18)
[2024-08-04] MEDS: ZYPREXA 15 MG PO (21:18)
[2024-08-04] MEDS: DESYREL 100 MG PO (22:49)
[2024-08-04 23:23] VITALS: BP 160/96
[2024-08-05] MEDS: DEPACON 52.5 MG IV ×3 (00:45→16:36)
[2024-08-05] MEDS: TYLENOL 650 MG PO (02:59)
--- NOTE | 2024-08-05 03:07 | PTCARENOTE ---
pt educated regarding pain medication, ambulation and motility of bowels. Pt expressed understanding, she is receptive and motivated and is requesting Tylenol prn for pain vs Dilaudid.
[2024-08-05 05:46] VITALS: BMI 22.8
[2024-08-05 06:48] LABS: % Basophils 0.4 % (0-2); % Eosinophils 2.2 % (0-6); % Immature Granulocytes 0.3 % (0-0.5); % Lymphocytes 15.9 % (20.5-51.1); % Neutrophils 73.2 % (42.2-75.2); Absolute Eosinophils 0.2 10^3/uL (0-0.7); Absolute Lymphocytes 1.2 10^3/uL (1.2-3.4); Absolute Monocytes 0.6 10^3/uL (0.1-0.6); Absolute Neutrophils 5.3 10^3/uL (1.4-6.5); Hematocrit 26.9 % (37.0-47.0); Mean Corp Hgb Conc. 33.5 g/dL (33.0-37.0); Mean Corpuscular Hgb 30.4 pg (27.0-31.0); Mean Corpuscular Volume 90.9 fL (81.0-99.0); Nucleated Red Blood Cells % 0 %; Platelet Count 286 10^3/uL (130-400); Red Blood Cell Count 2.96 10^6/uL (4.20-5.40); Red Cell Dist. Width 13.8 % (11.5-14.5); White Blood Cell Count 7.3 10^3/uL (4.8-10.8)
[2024-08-05 07:17] LABS: Blood Urea Nitrogen 3 mg/dl (7-17); Calcium 8.5 mg/dl (8.4-10.2); Carbon Dioxide 29 mmol/L (22-30); Chloride 99 mmol/L (98-107); Estimated Creatinine Clearance 102 ml/min; Glucose 102 mg/dl (70-99); Potassium 3.7 mmol/L (3.5-5.1); Sodium 135 mmol/L (135-145); eGFR > 60.00
--- NOTE | 2024-08-05 07:59 | W.PN.HOSP.TC ---
Today's Communication/Plan
-
see plan
Assessment / Plan
Assessment / Plan
Gen: remains NAD, AAOx3.
Eyes: EOMI, PERRLA, no scleral icterus.
Neck: supple.
CV: RRR, +S1/S2, no m/r/g.
Resp: continues to remain CTAB anteriorly, no rales, wheezes, or rhonchi.
Abd: +BS, soft, nontender to light palpation, mild distention
Skin: No rashes.
Neuro: CN 2-12 intact, non-focal.
Psych: Normal mood and affect.
CT A/P: Postoperative changes of prior colectomy and partial small bowel resection with likely left lower quadrant ostomy reversal. There is small volume pneumoperitoneum which is likely postoperative in nature. There is no drainable fluid
collection. There is a small focus of free fluid within the left lower quadrant which extends anterior to the uterus which is likely postoperative in nature, although developing collection is possible. There is mild left-sided hydronephrosis without
discrete obstruction identified. Oral contrast extends into the proximal jejunum however there are no findings to suggest small bowel obstruction. Diastases recti with postoperative changes in the anterior abdominal wall.
Abd Xray 08/04/24: Stable examination. Right-sided surgical drain in unchanged position. Unchanged mild gaseous distention of the proximal colon. Distal colon not visualized, decompressed. No evidence for small bowel obstruction.
Colostomy reversal on 07/28/24:
-h/o diverticulosis s/p splenic flexure takedown
-NGT removed
-cont Invanz
-cont Entereg/PPI
-cont IVFs (changed to D5LR with hypoglycemia)
-pain control
-surgery managing, discussed with Dr. Ernst
-CT A/P above, no drainable collection
-isolated fever on 08/02/24, now resolved
Fe def anemia:
-s/p course of IV Fe
-Hb stable
Other problems:
COPD, not in exacerbation: Continue Symbicort/Spiriva
Hematuria, was likely due to traumatic rojo
HLD
Depression: Cont Buspar/Zyprexa/Prozac/Depakote
Chronic HFpEF: daily wts, I/Os
CAD s/p stress test on 07/11/24 with non-ischemic results
Spontaneous right carotid dissection discovered after ongoing migraine headaches in 2021
Hyponatremia, resolved
Hypokalemia, resolved
FULL/Lovenox + SCDs
Anticipated Discharge: 24 - 48 hours
Subjective/Interval History
-
Date of Service: August 05, 2024
No new complaints.
Objective Data
-
Labs:
Laboratory Results
08/05/24
06:04
WBC 7.3
Hgb 9.0 L
Hct 26.9 L
Plt Count 286
Sodium 135
Potassium 3.7
Chloride 99
Carbon Dioxide 29
BUN 3 L
Creatinine 0.4 L
Glucose 102 H
Calcium 8.5
Vital Signs:
Vital Signs
Temp Pulse Resp BP Pulse Ox
99.1 F 86 18 160/96 93
08/04/24 23:23 08/04/24 23:23 08/04/24 23:23 08/04/24 23:23 08/04/24 23:23
I&O
08/04/24 08/05/24 08/06/24
06:59 06:59 06:59
Intake Total 4586 / 4586 1444 / 1444
Output Total 385 / 385 1870 / 1870
Balance 4201 / 4201 -426 / -426
[2024-08-05 08:01] VITALS: BP 167/100
[2024-08-05] MEDS: MUCINEX 600 MG PO ×2 (08:04→20:32)
[2024-08-05] MEDS: NSS (PRESERVATIVE FREE) 10 ML IV (08:04)
[2024-08-05] MEDS: ASPIR LOW (ENTERIC COATED) 81 MG PO (08:04)
[2024-08-05] MEDS: PROZAC 20 MG PO (08:04)
[2024-08-05] MEDS: SYMMETREL 100 MG PO ×2 (08:04→20:32)
[2024-08-05] MEDS: BUSPAR 10 MG PO ×3 (08:04→20:39)
[2024-08-05] MEDS: PROTONIX IV 40 MG IV (08:05)
[2024-08-05] MEDS: INVANZ 60 MG IV (08:05)
[2024-08-05] MEDS: SPIRIVA RESPIMAT 2.5 MCG 2 PUFF INH (08:32)
[2024-08-05] MEDS: SYMBICORT 160/4.5 MCG INHALER 2 PUFF INH ×2 (08:32→18:16)
--- NOTE | 2024-08-05 08:32 | W.PN.CRS1 ---
Today's Communication / Plan
-
Trial Clears.
Walk the halls.
Assessment/Plan
-
POD 8.
1. vitals and labs reasonable. On empiric Invanz. No fever for 3 days. Will continue antibiotic through POD 10.
2. less nausea and flatus. XRay yesterday with gas in colon and no obvious SB dilation. Will trial clears. Emphasized to patient to back off if increased nausea.
3. patient not getting OOB much per nursing. I encouraged patient to walk the halls frequently. Nursing made aware.
4. continue other measures.
Subjective Data
Procedure
1) robotic colostomy takedown 2) sigmoidectomy 3) partial small bowel resection X 2 3) extensive lysis of adhesions 4) flexible sigmoidoscopy on 07/28/24
Subjective Data
Date of Service: August 05, 2024
Admits to less nausea. Passing flatus still.
Pain control reasonable.
Per nursing patient not getting out of bed much.
Objective Data
-
Vital Signs
Temp Pulse Resp BP Pulse Ox
97.3 F 88 18 167/100 94
08/05/24 08:01 08/05/24 08:01 08/05/24 08:01 08/05/24 08:01 08/05/24 08:01
Intake & Output
08/04/24 08/05/24 08/06/24
06:59 06:59 06:59
Intake Total 4586 / 4586 1444 / 1444
Output Total 385 / 385 1870 / 1870
Balance 4201 / 4201 -426 / -426
Intake:
Oral fluids 1440 / 1440
IV fluids (Total) 2720 / 2720 1280 / 1280
IV piggybacks 426 / 426 164 / 164
Output:
Drain Output (Total) 35 / 35 20 / 20
Right Abdomen Cole-Olmos
Urine, Voided 350 / 350 1850 / 1850
Other:
Number of approximated MODERATE 1
amounts of urine
Number of approximated LARGE 1 3
amounts of urine
Lab Results
08/05/24 06:04
08/05/24 06:04
Physical Exam
-
General: No Acute Distress
Chest: Clear
Cardiovascular: Regular Rate & Rhythm
Abdomen: Distended (mild and unchanged), Tender (mild incisional) and Other (DAKOTA with SS output)
Extremities: No Calf Tenderness
Wound: Other (dressings dry)
Incision: Clear, Dry, Intact and No Skin Erythema
Data Reviewed
-
Diagnostic Radiology: Image Reviewed and Report Reviewed
[2024-08-05] MEDS: NORMOSOL-R/PLASMALYTE-A 1000 IV (10:02)
[2024-08-05 11:48] VITALS: BP 175/99
--- NOTE | 2024-08-05 12:16 | W.PN.UPDATE ---
Update Note
Progress Note Update
patient seen chart reviewed. spoke with nursing. patient looks reasonably well today. she needs encouragement to be more physically active...ie up and about. she is happy to be starting clear liquids and hopes that will progress. i asked her
about the movement disorder noted last admit. she said the ingrezza was stopped bc of a pharmacy [facility] and then she and her psychiatrist felt she did not need it. she says intermittently she will feel restless but it is more of an anxiety issue she
feels. did not make any changes in meds. she hopes in the future to be off olanzapine. she is hoping for dc in the next few days. spoke to cm visiting nurses already in place for her psych will sign off as patient likely to be dc soon and do not
foresee changes in her meds. her mood is hopeful for a better 2024.
[2024-08-05 12:19] VITALS: BP 169/106
[2024-08-05] MEDS: DILAUDID 0.5 MG IV ×2 (12:27→18:12)
[2024-08-05] MEDS: ATIVAN 1 MG PO (12:27)
--- NOTE | 2024-08-05 12:38 | PTCARENOTE ---
MD Leo made aware of pt elevated bps. pt denies symptoms. does report pain/anxiety; meds provided per MAR. no new orders at this time. plan of care continues to be followed.
[2024-08-05 13:35] VITALS: BP 145/104
--- NOTE | 2024-08-05 13:59 | CM ---
Chart reviewed. Met with pt
Clear liquids today
Rene to follow when d/c'ed
Plan - home with Rene
[2024-08-05 14:54] VITALS: BP 146/93
[2024-08-05] MEDS: LOVENOX 40 MG SC (17:08)
[2024-08-05] MEDS: VENTOLIN NEBULES 2.5 MG INH (18:16)
[2024-08-05] MEDS: DESYREL 100 MG PO (20:39)
[2024-08-05] MEDS: ZYPREXA 15 MG PO (20:40)
[2024-08-05 23:52] VITALS: BP 140/79
[2024-08-06] MEDS: NORMOSOL-R/PLASMALYTE-A 1000 IV ×2 (01:17→20:10)
[2024-08-06] MEDS: DEPACON 52.5 MG IV ×3 (01:17→16:38)
[2024-08-06] MEDS: DILAUDID 0.5 MG IV ×4 (01:25→20:11)
[2024-08-06 06:00] VITALS: BMI 22.8
[2024-08-06 06:16] LABS: % Basophils 0.8 % (0-2); % Eosinophils 3.1 % (0-6); % Immature Granulocytes 0.3 % (0-0.5); % Lymphocytes 24.4 % (20.5-51.1); % Monocytes 9.5 % (1.7-9.3); % Neutrophils 61.9 % (42.2-75.2); Absolute Basophils 0.1 10^3/uL (0-0.2); Absolute Eosinophils 0.2 10^3/uL (0-0.7); Absolute Lymphocytes 1.6 10^3/uL (1.2-3.4); Absolute Monocytes 0.6 10^3/uL (0.1-0.6); Absolute Neutrophils 4.1 10^3/uL (1.4-6.5); Hematocrit 25.4 % (37.0-47.0); Hemoglobin 8.5 g/dL (12.0-16.0); Mean Corp Hgb Conc. 33.5 g/dL (33.0-37.0); Mean Corpuscular Hgb 30.2 pg (27.0-31.0); Mean Corpuscular Volume 90.4 fL (81.0-99.0); Mean Platelet Volume 8.9 fL (7.4-10.4); Nucleated Red Blood Cells % 0 %; Platelet Count 364 10^3/uL (130-400); Red Blood Cell Count 2.81 10^6/uL (4.20-5.40); Red Cell Dist. Width 14.1 % (11.5-14.5); White Blood Cell Count 6.6 10^3/uL (4.8-10.8)
[2024-08-06 06:34] LABS: Blood Urea Nitrogen 3 mg/dl (7-17); Calcium 8.4 mg/dl (8.4-10.2); Carbon Dioxide 29 mmol/L (22-30); Chloride 97 mmol/L (98-107); Estimated Creatinine Clearance 100 ml/min; Glucose 96 mg/dl (70-99); Potassium 3.5 mmol/L (3.5-5.1); Sodium 136 mmol/L (135-145); eGFR > 60.00
[2024-08-06 07:30] VITALS: BP 168/84
[2024-08-06] MEDS: INVANZ 60 MG IV (08:17)
[2024-08-06] MEDS: PROTONIX IV 40 MG IV (08:17)
[2024-08-06] MEDS: NSS (PRESERVATIVE FREE) 10 ML IV (08:17)
[2024-08-06] MEDS: SPIRIVA RESPIMAT 2.5 MCG 2 PUFF INH (08:18)
[2024-08-06] MEDS: SYMBICORT 160/4.5 MCG INHALER 2 PUFF INH ×2 (08:19→20:28)
[2024-08-06] MEDS: VENTOLIN NEBULES 2.5 MG INH ×2 (08:21→20:28)
--- NOTE | 2024-08-06 08:21 | W.PN.HOSP.TC ---
Today's Communication/Plan
-
see plan
Assessment / Plan
Assessment / Plan
Gen: continues to remain NAD, AAOx3.
Eyes: EOMI, PERRLA, no scleral icterus.
Neck: supple.
CV: RRR with occasional premature beats, +S1/S2, no m/r/g.
Resp: CTAB anteriorly, no rales, wheezes, or rhonchi.
Abd: +BS, soft, nontender to light palpation, mild distention
Skin: No rashes.
Neuro: CN 2-12 intact, non-focal.
Psych: Normal mood and affect.
CT A/P: Postoperative changes of prior colectomy and partial small bowel resection with likely left lower quadrant ostomy reversal. There is small volume pneumoperitoneum which is likely postoperative in nature. There is no drainable fluid
collection. There is a small focus of free fluid within the left lower quadrant which extends anterior to the uterus which is likely postoperative in nature, although developing collection is possible. There is mild left-sided hydronephrosis without
discrete obstruction identified. Oral contrast extends into the proximal jejunum however there are no findings to suggest small bowel obstruction. Diastases recti with postoperative changes in the anterior abdominal wall.
Abd Xray 08/04/24: Stable examination. Right-sided surgical drain in unchanged position. Unchanged mild gaseous distention of the proximal colon. Distal colon not visualized, decompressed. No evidence for small bowel obstruction.
Colostomy reversal on 07/28/24:
-h/o diverticulosis s/p splenic flexure takedown
-NGT removed
-cont Invanz
-cont Entereg/PPI
-cont IVFs (changed to D5LR with hypoglycemia)
-pain control
-surgery managing
-CT A/P above, no drainable collection
-isolated fever on 08/02/24, now resolved
-clears
Fe def anemia:
-s/p course of IV Fe
-Hb stable
Other problems:
COPD, not in exacerbation: Continue Symbicort/Spiriva
Hematuria, was likely due to traumatic rojo
HLD
Depression: Cont Buspar/Zyprexa/Prozac/Depakote
Chronic HFpEF: daily wts, I/Os
CAD s/p stress test on 07/11/24 with non-ischemic results
Spontaneous right carotid dissection discovered after ongoing migraine headaches in 2021
Hyponatremia, resolved
Hypokalemia, resolved
FULL/Lovenox + SCDs
Anticipated Discharge: > 48 hours
Subjective/Interval History
-
Date of Service: August 06, 2024
No new complaints. No BM yet.
Objective Data
-
Labs:
Laboratory Results
08/06/24
05:11
WBC 6.6
Hgb 8.5 L
Hct 25.4 L
Plt Count 364 D
Sodium 136
Potassium 3.5
Chloride 97 L
Carbon Dioxide 29
BUN 3 L
Creatinine 0.5 L
Glucose 96
Calcium 8.4
Vital Signs:
Vital Signs
Temp Pulse Resp BP Pulse Ox
98.6 F 86 16 140/79 94
08/05/24 23:52 08/05/24 23:52 08/05/24 23:52 08/05/24 23:52 08/05/24 23:52
I&O
08/05/24 08/06/24 08/07/24
06:59 06:59 06:59
Intake Total 1444 / 1444 3685.0 / 3685.0
Output Total 1869 / 1869
Balance -426 / -426 3675.0 / 3675.0
[2024-08-06] MEDS: BUSPAR 10 MG PO ×3 (08:22→23:43)
[2024-08-06] MEDS: SYMMETREL 100 MG PO ×2 (08:23→20:09)
[2024-08-06] MEDS: ASPIR LOW (ENTERIC COATED) 81 MG PO (08:23)
[2024-08-06] MEDS: MUCINEX 600 MG PO ×2 (08:23→20:09)
[2024-08-06] MEDS: PROZAC 20 MG PO (08:24)
--- NOTE | 2024-08-06 10:59 | W.PN.UPDATE ---
Update Note
Progress Note Update
Surgery notified via [employer] that I will be signing off the case. Please reconsult if further questions.
--- NOTE | 2024-08-06 11:27 | W.PN.GS2 ---
Today's Communication / Plan
-
OOB/ambulate
Clear liquids
Assessment / Plan
-
53 yo female with prior history of COPD, Hx of pulmonary aspergillosis and pelvic abscess/complicated diverticulitis s/p Sav's procedure
POD #9 robotic colostomy takedown with SBR x2 (total of 30cm) with extensive LEISA
Last fever was on 08/02, AFVSS
Labs stable
Passing flatus, no BM's. Ileus resolving.
--Continue Invanz through POD #10
--Continue clears
--Continue IVF
--Follow drain outputs, currently minimal
--Trend labs
--PRN Analgesics
--PPI IV daily for GI ppx
--Medicine service signing off today, will reconsult if needed
--OOB/Increase activity/PT following
--chemical VTE ppx with Sq Lovenox 40mg, SCDS for mechanical ppx as tolerated
Subjective Data
-
Date of Service: August 06, 2024
Patient seen and examined at bedside with Dr. Salazar. Denies nausea and vomiting. Passing flatus, no BM as of yet. Pain well controlled.
Objective Data
-
Intake and Output
08/05/24 08/06/24 08/07/24
06:59 06:59 06:59
Intake Total 1444 / 1444 3685.0 / 3685.0
Output Total 1870 / 1870
Balance -426 / -426 3675.0 / 3675.0
Intake:
Oral fluids 1755 / 1755
IV fluids (Total) 1280 / 1280 1710 / 1710
IV piggybacks 164 / 164 220.0 / 220.0
Output:
Drain Output (Total)
Right Abdomen Cole-Olmos
Urine, Voided 1849
Other:
Number of approximated MODERATE 2
amounts of urine
Number of approximated LARGE 3 1
amounts of urine
Vital Signs
Temp Pulse Resp BP Pulse Ox
98.5 F 84 16 168/84 94
08/06/24 07:30 08/06/24 08:23 08/06/24 08:23 08/06/24 07:30 08/06/24 08:23
Lab Results
08/06/24 05:11
08/06/24 05:11
Calcium 8.4 mg/dl (8.4-10.2) 08/06/24 05:11
Phosphorus 3.2 mg/dl (2.5-4.5) 07/31/24 05:41
Magnesium 1.9 mg/dl (1.6-2.3) 07/31/24 05:41
Total Bilirubin 0.5 mg/dl (0.2-1.3) 07/30/24 05:01
AST 15 U/L (14-36) 07/30/24 05:01
ALT 12 U/L (0-35) 07/30/24 05:01
Alkaline Phosphatase 70 U/L (38-126) 07/30/24 05:01
Total Protein 5.2 g/dl (6.3-8.2) L 07/30/24 05:01
Albumin 2.6 g/dl (3.5-5.0) L 07/30/24 05:01
Physical Exam
-
Gen: NAD
Abd: soft, approp ttp, ND, incisions well approximated, intact heaven to prior ostomy site
[2024-08-06 14:34] VITALS: BP 165/91
[2024-08-06] MEDS: LOVENOX 40 MG SC (16:38)
--- NOTE | 2024-08-06 17:44 | PTCARENOTE ---
pt walking halways 3x today. c/o of left hip pain. Stated has been present for 2days. perhaps from mobility or lying in bed.
[2024-08-06] MEDS: NORMOSOL-R/PLASMALYTE-A IV (20:10)
[2024-08-06 23:30] VITALS: BP 157/90
[2024-08-06] MEDS: ZYPREXA 15 MG PO (23:43)
[2024-08-06] MEDS: DESYREL 100 MG PO (23:43)
[2024-08-07] MEDS: DEPACON 52.5 MG IV ×3 (00:30→17:06)
[2024-08-07] MEDS: DILAUDID 0.5 MG IV ×2 (02:10→21:13)
[2024-08-07 06:00] VITALS: BMI 22.7
[2024-08-07 07:30] VITALS: BP 174/99
[2024-08-07] MEDS: PROTONIX IV 40 MG IV (08:28)
[2024-08-07] MEDS: BUSPAR 10 MG PO ×3 (08:29→22:15)
[2024-08-07] MEDS: NSS (PRESERVATIVE FREE) 10 ML IV (08:29)
[2024-08-07] MEDS: INVANZ 60 MG IV (08:29)
[2024-08-07] MEDS: ASPIR LOW (ENTERIC COATED) 81 MG PO (08:29)
[2024-08-07] MEDS: SYMMETREL 100 MG PO ×2 (08:33→21:11)
[2024-08-07] MEDS: PROZAC 20 MG PO (08:33)
[2024-08-07] MEDS: MUCINEX 600 MG PO ×2 (08:33→21:12)
[2024-08-07 08:37] LABS: Blood Urea Nitrogen 3 mg/dl (7-17); Carbon Dioxide 29 mmol/L (22-30); Chloride 96 mmol/L (98-107); Estimated Creatinine Clearance 100 ml/min; Glucose 117 mg/dl (70-99); Potassium 3.6 mmol/L (3.5-5.1); Sodium 136 mmol/L (135-145); eGFR > 60.00
[2024-08-07] MEDS: ZOFRAN 4 MG IV ×2 (08:38→15:40)
--- NOTE | 2024-08-07 09:12 | W.PN.GS2 ---
Today's Communication / Plan
-
Check XR abd
Assessment / Plan
-
53 yo female with prior history of COPD, Hx of pulmonary aspergillosis and pelvic abscess/complicated diverticulitis s/p Sav's procedure
POD #10 robotic colostomy takedown with SBR x2 (total of 30cm) with extensive LEISA
Last fever was on 08/02, AFVSS
Last CT was 08/03 which was stable without abscess or obstruction
CBC for today pending, BMP stable
Ileus present. Passing flatus, no BM's. Vomiting today.
--Continue Invanz through today
--Continue clears
--Check ABD XR given vomiting this am
--Nutrition following, may require TPN if unable to advance diet. Nutritional labs entered for AM.
--Continue IVF
--Follow drain outputs, currently minimal
--Trend labs
--PRN Analgesics
--PPI IV daily for GI ppx
--OOB/Increase activity/PT following
--chemical VTE ppx with Sq Lovenox 40mg, SCDS for mechanical ppx as tolerated
Subjective Data
-
Date of Service: August 07, 2024
Patient seen and examined at bedside with Dr. Salazar. AMANDA to chair. Was nauseated overnight and when got OOB vomited yellow/green emesis. Passing flatus but still with no BM. Pain minimal.
Objective Data
-
Intake and Output
08/06/24 08/07/24 08/08/24
06:59 06:59 06:59
Intake Total 3685.0 / 3685.0 4250 / 4250
Output Total
Balance 3675.0 / 3675.0 4228 / 4228
Intake:
Oral fluids 1755 / 1755 1840 / 1840
IV fluids (Total) 1710 / 1710 2200 / 2200
IV piggybacks 220.0 / 220.0 210 / 210
Output:
Drain Output (Total)
Right Abdomen Cole-Olmos
Other:
Number of approximated MODERATE 2 3 1
amounts of urine
Number of approximated LARGE 1 3
amounts of urine
Number of immeasurable emeses? 1
Vital Signs
Temp Pulse Resp BP Pulse Ox
98.6 F 85 18 174/99 94
08/07/24 07:30 08/07/24 07:30 08/07/24 07:30 08/07/24 07:30 08/07/24 07:30
Lab Results
08/07/24 07:39
Calcium 9.0 mg/dl (8.4-10.2) 08/07/24 07:39
Phosphorus 3.2 mg/dl (2.5-4.5) 07/31/24 05:41
Magnesium 1.9 mg/dl (1.6-2.3) 07/31/24 05:41
Total Bilirubin 0.5 mg/dl (0.2-1.3) 07/30/24 05:01
AST 15 U/L (14-36) 07/30/24 05:01
ALT 12 U/L (0-35) 07/30/24 05:01
Alkaline Phosphatase 70 U/L (38-126) 07/30/24 05:01
Total Protein 5.2 g/dl (6.3-8.2) L 07/30/24 05:01
Albumin 2.6 g/dl (3.5-5.0) L 07/30/24 05:01
Physical Exam
-
Gen: NAD
Abd: soft, approp ttp, minimal distention, incisions well approximated, intact heaven to prior ostomy site
DAKOTA with SSF, minimal output
[2024-08-07] MEDS: SYMBICORT 160/4.5 MCG INHALER 2 PUFF INH ×2 (09:18→17:16)
[2024-08-07] MEDS: SPIRIVA RESPIMAT 2.5 MCG 2 PUFF INH (09:18)
[2024-08-07] MEDS: NORMOSOL-R/PLASMALYTE-A 1000 IV (10:38)
[2024-08-07 11:20] LABS: % Basophils 0.5 % (0-2); % Eosinophils 2.5 % (0-6); % Immature Granulocytes 0.4 % (0-0.5); % Lymphocytes 19.2 % (20.5-51.1); % Monocytes 7.9 % (1.7-9.3); % Neutrophils 69.5 % (42.2-75.2); Absolute Eosinophils 0.2 10^3/uL (0-0.7); Absolute Lymphocytes 1.5 10^3/uL (1.2-3.4); Absolute Monocytes 0.6 10^3/uL (0.1-0.6); Absolute Neutrophils 5.6 10^3/uL (1.4-6.5); Hemoglobin 9.7 g/dL (12.0-16.0); Mean Corp Hgb Conc. 33.4 g/dL (33.0-37.0); Mean Corpuscular Hgb 30.5 pg (27.0-31.0); Mean Corpuscular Volume 91.2 fL (81.0-99.0); Mean Platelet Volume 8.9 fL (7.4-10.4); Platelet Count 450 10^3/uL (130-400); Red Blood Cell Count 3.18 10^6/uL (4.20-5.40); Red Cell Dist. Width 14.3 % (11.5-14.5)
[2024-08-07 11:21] LABS: Nucleated Red Blood Cells % 0 %
--- NOTE | 2024-08-07 12:15 | PTCARENOTE ---
Patient vomited 1200ml of brown fluid. Zofran given for c/o nausea. PA made aware, order for CT and NGT. Patient ambulating in halls with a steady gait.
[2024-08-07] MEDS: OMNIPAQUE 50 ML PO (13:08)
[2024-08-07 15:21] VITALS: BP 161/85
[2024-08-07] MEDS: LOVENOX 40 MG SC (17:07)
[2024-08-07] MEDS: ZYPREXA 15 MG PO (22:15)
[2024-08-07] MEDS: DESYREL 100 MG PO (22:15)
[2024-08-07] MEDS: ATIVAN 1 MG PO (22:47)
[2024-08-07] MEDS: CHLORASEPTIC/SORE THROAT SPRAY 1 SPRAY PO (22:47)
[2024-08-07 23:17] VITALS: BP 160/82
[2024-08-08] MEDS: NORMOSOL-R/PLASMALYTE-A 1000 IV ×2 (00:50→17:52)
[2024-08-08] MEDS: DEPACON 52.5 MG IV ×3 (00:50→16:16)
[2024-08-08 03:00] VITALS: BP 138/73
[2024-08-08 06:00] VITALS: BMI 21.5
[2024-08-08] MEDS: SYMBICORT 160/4.5 MCG INHALER 2 PUFF INH ×2 (06:34→20:14)
[2024-08-08] MEDS: SPIRIVA RESPIMAT 2.5 MCG 2 PUFF INH (06:34)
[2024-08-08 07:05] VITALS: BP 133/81
[2024-08-08 07:18] LABS: % Eosinophils 3.7 % (0-6); % Immature Granulocytes 0.7 % (0-0.5); % Lymphocytes 23.7 % (20.5-51.1); % Monocytes 8.1 % (1.7-9.3); % Neutrophils 62.8 % (42.2-75.2); Absolute Basophils 0.1 10^3/uL (0-0.2); Absolute Eosinophils 0.3 10^3/uL (0-0.7); Absolute Immature Granulocytes 0.1 10^3/uL (0-0.05); Absolute Lymphocytes 1.6 10^3/uL (1.2-3.4); Absolute Monocytes 0.6 10^3/uL (0.1-0.6); Absolute Neutrophils 4.2 10^3/uL (1.4-6.5); Hematocrit 26.5 % (37.0-47.0); Hemoglobin 8.8 g/dL (12.0-16.0); Mean Corp Hgb Conc. 33.2 g/dL (33.0-37.0); Mean Corpuscular Hgb 30.2 pg (27.0-31.0); Mean Corpuscular Volume 91.1 fL (81.0-99.0); Mean Platelet Volume 8.8 fL (7.4-10.4); Nucleated Red Blood Cells % 0 %; Platelet Count 452 10^3/uL (130-400); Red Blood Cell Count 2.91 10^6/uL (4.20-5.40); Red Cell Dist. Width 14.3 % (11.5-14.5); White Blood Cell Count 6.8 10^3/uL (4.8-10.8)
[2024-08-08 07:28] LABS: Blood Urea Nitrogen 6 mg/dl (7-17); Calcium 8.6 mg/dl (8.4-10.2); Carbon Dioxide 33 mmol/L (22-30); Chloride 96 mmol/L (98-107); Estimated Creatinine Clearance 100 ml/min; Glucose 89 mg/dl (70-99); Magnesium 2.3 mg/dl (1.6-2.3); Phosphorus 3.7 mg/dl (2.5-4.5); Potassium 3.3 mmol/L (3.5-5.1); Sodium 137 mmol/L (135-145); Triglycerides 74 mg/dl (10-149); eGFR > 60.00
[2024-08-08] MEDS: SYMMETREL 100 MG PO ×2 (08:51→20:39)
[2024-08-08] MEDS: BUSPAR 10 MG PO ×3 (08:51→22:20)
[2024-08-08] MEDS: PROZAC 20 MG PO (08:51)
[2024-08-08] MEDS: PROTONIX IV 40 MG IV (08:51)
[2024-08-08] MEDS: MUCINEX 600 MG PO ×2 (08:51→20:39)
[2024-08-08] MEDS: NSS (PRESERVATIVE FREE) 10 ML IV (08:51)
[2024-08-08] MEDS: INVANZ 60 MG IV (08:51)
[2024-08-08] MEDS: ASPIR LOW (ENTERIC COATED) 81 MG PO (08:51)
--- NOTE | 2024-08-08 11:26 | W.PN.CRS1 ---
Today's Communication / Plan
-
continue ngt
tpn
Assessment/Plan
-
53 yo female with prior history of COPD, Hx of pulmonary aspergillosis and pelvic abscess/complicated diverticulitis s/p Sav's procedure
POD #11 robotic colostomy takedown with SBR x2 (total of 30cm) with extensive LEISA
Last fever was on 08/02, AFVSS. WBC 6.8.
Last CT was 08/06 which showed 4.5 x 2.4 cm mildly hypodense focus adjacent to the small bowel anastomosis in the left mid abdomen which has slightly decreased in size from prior and was previously thought to be unopacified bowel, however is now
favored to represent a likely a hematoma adjacent to the anastomosis. There is associated mild distention of the stomach and proximal small bowel proximal to the anastomosis to represent partial obstruction/delayed transit
NGT output: 1750ml
--Invanz completed
--Continue NGT with NPO
--Start TPN today
--Continue IVF
--Follow drain outputs, currently minimal
--Trend labs
--PRN Analgesics
--PPI IV daily for GI ppx
--OOB/Increase activity/PT following
--chemical VTE ppx with Sq Lovenox 40mg, SCDS for mechanical ppx as tolerated
Subjective Data
Procedure
1) robotic colostomy takedown 2) sigmoidectomy 3) partial small bowel resection X 2 3) extensive lysis of adhesions 4) flexible sigmoidoscopy on 07/28/24
Subjective Data
Date of Service: August 08, 2024
Patient states she feels 'the same'. Her pain is 'okay'. She has no nausea or vomiting. An ngt is in place. She has some flatus but no bowel movements.
Objective Data
-
Vital Signs
Temp Pulse Resp BP Pulse Ox
97.6 F 83 14 133/81 93
08/08/24 07:05 08/08/24 07:05 08/08/24 07:05 08/08/24 07:05 08/08/24 07:05
Intake & Output
08/07/24 08/08/24 08/09/24
06:59 06:59 06:59
Intake Total 4250 / 4250 2035 / 5
Output Total 2985 / 2985
Balance 4228 / 4228 -950 / -950
Intake:
Oral fluids 1840 / 1840 120 / 120
IV fluids (Total) 2200 / 2200 1580 / 1580
IV piggybacks 210 / 210 215 / 215
Amount instilled into GI Tube ( 120 / 120
Total)
[place] Sump 120 / 120
Output:
Emesis 1200 / 1200
Drain Output (Total) 35
Right Abdomen Cole-Olmos 35
Gastrointestinal tube output ( 1750 / 1750
Total)
[place] Sump 1750 / 1750
Other:
Number of approximated MODERATE 3 1
amounts of urine
Number of approximated LARGE 3
amounts of urine
Number of immeasurable emeses? 1
Lab Results
08/08/24 06:09
08/08/24 06:09
Physical Exam
-
General: No Acute Distress and AOx3
Abdomen: Soft, Non Distended and Non Tender
Skin: Warm and Dry
Incision: Clear, Dry, Intact
[2024-08-08] MEDS: KCL 160 MEQ IV (12:18)
[2024-08-08] MEDS: DILAUDID 0.25 MG IV (13:58)
[2024-08-08] MEDS: NORMOSOL-R/PLASMALYTE-A IV (14:01)
--- NOTE | 2024-08-08 14:29 | CM ---
Chart reviewed
NGT remains, NPO, IVF's
[facility] to follow at discharge
Plan - anticipate home with [facility] when medically stable
[2024-08-08 15:00] VITALS: BP 138/73
[2024-08-08] MEDS: LOVENOX 40 MG SC (16:22)
--- NOTE | 2024-08-08 18:37 | PTCARENOTE ---
Patient ambulated in halls three times today independently with a steady gait. Patient tolerated sitting in chair for 3 hours. Patient c/o abdominal pain, Dilaudid given at 1358 with good relief x1 today. Patient frequently requesting ice chips. RN
explained that ice chips are for comfort and to slow down a bit, but patient said she needs them.
[2024-08-08] MEDS: VENTOLIN NEBULES 2.5 MG INH (20:14)
[2024-08-08] MEDS: ATIVAN 1 MG PO (20:39)
[2024-08-08] MEDS: Parenteral Nutrition, Central 890 IV (21:10)
[2024-08-08] MEDS: ZYPREXA 15 MG PO (22:20)
[2024-08-08 23:20] VITALS: BP 144/72
[2024-08-09 00:01] LABS: Glucose - Point of Care 116 mg/dl (70-99)
[2024-08-09] MEDS: DEPACON 52.5 MG IV ×3 (01:17→16:09)
[2024-08-09 04:58] LABS: % Basophils 0.7 % (0-2); % Eosinophils 3.5 % (0-6); % Immature Granulocytes 0.4 % (0-0.5); % Lymphocytes 26.7 % (20.5-51.1); % Monocytes 7.7 % (1.7-9.3); Absolute Basophils 0.1 10^3/uL (0-0.2); Absolute Eosinophils 0.3 10^3/uL (0-0.7); Absolute Monocytes 0.6 10^3/uL (0.1-0.6); Absolute Neutrophils 4.5 10^3/uL (1.4-6.5); Hematocrit 25.8 % (37.0-47.0); Hemoglobin 8.3 g/dL (12.0-16.0); Mean Corp Hgb Conc. 32.2 g/dL (33.0-37.0); Mean Corpuscular Hgb 29.7 pg (27.0-31.0); Mean Corpuscular Volume 92.5 fL (81.0-99.0); Mean Platelet Volume 8.7 fL (7.4-10.4); Nucleated Red Blood Cells % 0 %; Platelet Count 447 10^3/uL (130-400); Red Blood Cell Count 2.79 10^6/uL (4.20-5.40); Red Cell Dist. Width 14.1 % (11.5-14.5); White Blood Cell Count 7.4 10^3/uL (4.8-10.8)
[2024-08-09 05:21] LABS: Blood Urea Nitrogen 9 mg/dl (7-17); Calcium 8.4 mg/dl (8.4-10.2); Carbon Dioxide 33 mmol/L (22-30); Chloride 97 mmol/L (98-107); Estimated Creatinine Clearance 100 ml/min; Glucose 105 mg/dl (70-99); Magnesium 2.3 mg/dl (1.6-2.3); Phosphorus 3.2 mg/dl (2.5-4.5); Potassium 3.2 mmol/L (3.5-5.1); Sodium 137 mmol/L (135-145); eGFR > 60.00
[2024-08-09] MEDS: NORMOSOL-R/PLASMALYTE-A 1000 IV (05:37)
[2024-08-09 06:00] VITALS: BMI 21.5
[2024-08-09 07:05] VITALS: BP 171/95
[2024-08-09] MEDS: SPIRIVA RESPIMAT 2.5 MCG 2 PUFF INH (07:20)
[2024-08-09] MEDS: SYMBICORT 160/4.5 MCG INHALER 2 PUFF INH ×2 (07:21→19:54)
[2024-08-09] MEDS: BUSPAR 10 MG PO ×3 (08:38→22:06)
[2024-08-09] MEDS: ASPIR LOW (ENTERIC COATED) 81 MG PO (08:38)
[2024-08-09] MEDS: INVANZ 60 MG IV (08:38)
[2024-08-09] MEDS: SYMMETREL 100 MG PO ×2 (08:39→20:42)
[2024-08-09] MEDS: MUCINEX 600 MG PO ×2 (08:39→20:42)
[2024-08-09] MEDS: PROZAC 20 MG PO (08:39)
[2024-08-09] MEDS: PROTONIX IV 40 MG IV (09:02)
[2024-08-09] MEDS: NSS (PRESERVATIVE FREE) 10 ML IV (09:03)
[2024-08-09] MEDS: FLUSH (NSS) 1 FLUSH IV (09:03)
--- NOTE | 2024-08-09 09:30 | PTOTSP ---
Therapist has observed pt ambulating independently in hallway yesterday and today, pushing her own IV pole. PT will sign off.
[2024-08-09] MEDS: NSS 1000 IV (10:44)
--- NOTE | 2024-08-09 11:16 | W.PN.CRS1 ---
Today's Communication / Plan
-
Continue NG tube
Await bowel function
TPN
Replete K
Assessment/Plan
-
53 yo female with prior history of COPD, Hx of pulmonary aspergillosis and pelvic abscess/complicated diverticulitis s/p Sav's procedure
POD #1 12 robotic colostomy takedown with SBR x2 (total of 30cm) with extensive LEISA
Last fever was on 08/02, AFVSS. WBC 7.[address] was 08/06 which showed 4.5 x 2.4 cm mildly hypodense focus adjacent to the small bowel anastomosis in the left mid abdomen which has slightly decreased in size from prior and was previously thought to be unopacified bowel, however is now
favored to represent a likely a hematoma adjacent to the anastomosis. There is associated mild distention of the stomach and proximal small bowel proximal to the anastomosis to represent partial obstruction/delayed transit
NGT output: 1600
--Continue NGT with NPO, await bowel function
--Potassium is 3.2 which is hypokalemia. Will replete with 40 meq equivalents of K rider.
--Continue TPN
--Continue IVF
--DAKOTA drain removed at bedside
--Trend labs. Hemoglobin 8.3. This is considered anemia likely due to hemodilution. Will trend.
--PRN Analgesics
--PPI IV daily for GI ppx
--OOB/Increase activity/PT following
--chemical VTE ppx with Sq Lovenox 40mg, SCDS for mechanical ppx as tolerated
Subjective Data
Procedure
1) robotic colostomy takedown 2) sigmoidectomy 3) partial small bowel resection X 2 3) extensive lysis of adhesions 4) flexible sigmoidoscopy on 07/28/24
Subjective Data
Date of Service: August 09, 2024
Patient states she feels a little bit better today as far as her pain goes. She has had some intermittent nausea but not as severe as it was a few days ago. She has not had any bowel movements yet. She has very infrequent flatus.
Objective Data
-
Vital Signs
Temp Pulse Resp BP Pulse Ox
98.6 F 77 16 171/95 95
08/09/24 07:05 08/09/24 07:26 08/09/24 07:26 08/09/24 07:05 08/09/24 07:26
Intake & Output
08/08/24 08/09/24 08/10/24
06:59 06:59 06:59
Intake Total 2035 / 2035 1080 / 1080
Output Total 2985 / 2985 1620 / 1620
Balance -950 / -950 -540 / -540
Intake:
Oral fluids 120 / 120 660 / 660
IV fluids (Total) 1580 / 1580
IV piggybacks 215 / 215 270 / 270
Amount instilled into GI Tube ( 120 / 120 150 / 150
Total)
[place] Sump 120 / 120 150 / 150
Output:
Emesis 1200 / 1200
Drain Output (Total) 35 / 35 20 / 20
Right Abdomen Cole-Olmos 35 / 20 / 20
Gastrointestinal tube output ( 1750 / 1750 1600 / 1600
Total)
[place] Sump 1750 / 1750 1600 / 1600
Other:
Number of approximated MODERATE 1 2
amounts of urine
Number of immeasurable emeses? 1
Lab Results
08/09/24 04:28
08/09/24 04:28
Physical Exam
-
General: No Acute Distress and AOx3
Abdomen: Soft, Non Distended, Tender and Other (DAKOTA drain with serous output)
Skin: Warm and Dry
Incision: Clear, Dry, Intact
[2024-08-09] MEDS: KCL 100 IV (11:47)
[2024-08-09] MEDS: TORADOL 10 MG IV ×3 (12:48→23:54)
[2024-08-09 12:49] LABS: Glucose - Point of Care 130 mg/dl (70-99)
--- NOTE | 2024-08-09 15:43 | CM ---
Chart reviewed
NGT remains, NPO, IVF's
Ambulation encouraged
[facility] to follow at discharge
Plan - anticipate home with [facility] when medically stable
[2024-08-09 18:10] VITALS: BP 146/89
[2024-08-09 18:21] LABS: Glucose - Point of Care 103 mg/dl (70-99)
[2024-08-09] MEDS: LOVENOX 40 MG SC (18:27)
[2024-08-09] MEDS: VENTOLIN NEBULES 2.5 MG INH (19:56)
[2024-08-09] MEDS: TYLENOL 650 MG PO (20:47)
[2024-08-09] MEDS: Parenteral Nutrition, Central 1220 IV (21:29)
[2024-08-09 21:30] LABS: Glucose - Point of Care 129 mg/dl (70-99)
[2024-08-09] MEDS: ZYPREXA 15 MG PO (22:06)
[2024-08-09] MEDS: ATIVAN 1 MG PO (22:08)
[2024-08-09 23:03] VITALS: BP 153/86
[2024-08-09 23:54] LABS: Glucose - Point of Care 139 mg/dl (70-99)
[2024-08-10] MEDS: DEPACON 52.5 MG IV ×3 (01:21→16:31)
[2024-08-10] MEDS: NSS 1000 IV ×2 (01:21→16:31)
[2024-08-10] MEDS: TORADOL 10 MG IV ×3 (05:47→18:29)
[2024-08-10 05:51] LABS: Glucose - Point of Care 120 mg/dl (70-99)
[2024-08-10 06:56] LABS: % Basophils 0.8 % (0-2); % Eosinophils 3.5 % (0-6); % Immature Granulocytes 0.5 % (0-0.5); % Lymphocytes 26.1 % (20.5-51.1); % Monocytes 10.3 % (1.7-9.3); % Neutrophils 58.8 % (42.2-75.2); Absolute Basophils 0.1 10^3/uL (0-0.2); Absolute Eosinophils 0.2 10^3/uL (0-0.7); Absolute Lymphocytes 1.7 10^3/uL (1.2-3.4); Absolute Monocytes 0.7 10^3/uL (0.1-0.6); Absolute Neutrophils 3.7 10^3/uL (1.4-6.5); Hematocrit 27.2 % (37.0-47.0); Hemoglobin 8.8 g/dL (12.0-16.0); Mean Corp Hgb Conc. 32.4 g/dL (33.0-37.0); Mean Corpuscular Hgb 29.8 pg (27.0-31.0); Mean Corpuscular Volume 92.2 fL (81.0-99.0); Mean Platelet Volume 8.6 fL (7.4-10.4); Nucleated Red Blood Cells % 0 %; Platelet Count 507 10^3/uL (130-400); Red Blood Cell Count 2.95 10^6/uL (4.20-5.40); Red Cell Dist. Width 14.6 % (11.5-14.5); White Blood Cell Count 6.3 10^3/uL (4.8-10.8)
[2024-08-10 07:02] VITALS: BMI 21.4
[2024-08-10 07:28] LABS: Blood Urea Nitrogen 17 mg/dl (7-17); Calcium 8.8 mg/dl (8.4-10.2); Carbon Dioxide 27 mmol/L (22-30); Chloride 103 mmol/L (98-107); Estimated Creatinine Clearance 100 ml/min; Glucose 104 mg/dl (70-99); Magnesium 2.2 mg/dl (1.6-2.3); Phosphorus 3.6 mg/dl (2.5-4.5); Potassium 4.1 mmol/L (3.5-5.1); Sodium 138 mmol/L (135-145); eGFR > 60.00
[2024-08-10] MEDS: SPIRIVA RESPIMAT 2.5 MCG 2 PUFF INH (07:36)
[2024-08-10] MEDS: SYMBICORT 160/4.5 MCG INHALER 2 PUFF INH ×2 (07:36→19:50)
[2024-08-10 08:00] VITALS: BP 166/90
[2024-08-10] MEDS: NSS (PRESERVATIVE FREE) 10 ML IV (09:05)
[2024-08-10] MEDS: BUSPAR 10 MG PO ×3 (09:05→22:10)
[2024-08-10] MEDS: ASPIR LOW (ENTERIC COATED) 81 MG PO (09:06)
[2024-08-10] MEDS: MUCINEX 600 MG PO ×2 (09:06→20:38)
[2024-08-10] MEDS: SYMMETREL 100 MG PO ×2 (09:06→20:38)
[2024-08-10] MEDS: PROTONIX IV 40 MG IV (09:06)
[2024-08-10] MEDS: PROZAC 20 MG PO (09:07)
[2024-08-10] MEDS: ATIVAN 1 MG PO ×2 (11:03→20:38)
--- NOTE | 2024-08-10 12:25 | W.PN.CRS1 ---
Today's Communication / Plan
-
As below
Assessment/Plan
-
53-year-old female with PMH of COPD, RLS, HLD, GERD, MDD, pulmonary aspergillosis, bronchiectasis who presented for elective colostomy reversal
POD 13 robotic end colostomy reversal with small bowel resection x 2 and extensive lysis of adhesions
08/03 CT (for fever)�postoperative changes, contrast extending into the proximal jejunum
08/07 CT (for +V) � Postoperative, decrease in pneumoperitoneum, 4.5 x 2.4 cm hypodensity adjacent to small bowel anastomosis, likely representing hematoma, with proximal distention of small bowel
AFVSS, NGT 1.7 L light bilious
WBC 6.4 from 7.4, hemoglobin 8.8 from 8.3, CR 0.5
�Perianastomotic hematoma likely causing partial small bowel obstruction
�Continue n.p.o. with TPN; no acute need for repeat surgery
�Explained that it can take weeks for hematoma to resolve, but hopefully partial obstruction will improve sooner than that
� Continue pain control with Tylenol, Toradol, Dilaudid as needed
� Continue DVT PPx with Lovenox
�Continue home meds
�Off antibiotics, s/p course of ertapenem postoperatively for intraoperative spillage
� OOB/IS, appreciate PT
� Appreciate hospitalist
Subjective Data
Procedure
1) robotic colostomy takedown 2) sigmoidectomy 3) partial small bowel resection X 2 3) extensive lysis of adhesions 4) flexible sigmoidoscopy on 07/28/24
Subjective Data
Date of Service: August 10, 2024
No overnight events.
Denies abdominal pain
Denies nausea/vomiting. Currently n.p.o. with NGT
+flatus (small amount) -BMs +voiding
Objective Data
-
Vital Signs
Temp Pulse Resp BP Pulse Ox
98.7 F 80 18 166/90 96
08/10/24 08:00 08/10/24 08:00 08/10/24 08:00 08/10/24 08:00 08/10/24 08:00
Intake & Output
08/09/24 08/10/24 08/11/24
06:59 06:59 06:59
Intake Total 1080 / 1080 2743 / 2743
Output Total 1620 / 1620 1750 / 1750
Balance -540 / -540 993 / 993
Intake:
Oral fluids 660 / 660 320 / 320
IV fluids (Total) 1921919
IV piggybacks 270 / 270 323 / 323
Amount instilled into GI Tube ( 150 / 150 180 / 180
Total)
[place] Sump 150 / 150 180 / 180
Output:
Drain Output (Total)
Right Abdomen Cole-Olmos
Gastrointestinal tube output ( 1600 / 1600 1750 / 1750
Total)
[place] Sump 1600 / 1600 1750 / 1750
Other:
Number of approximated MODERATE 2 2
amounts of urine
Lab Results
08/10/24 06:35
08/10/24 06:35
Physical Exam
-
General: No Acute Distress and AOx3
HEENT: Grossly Normal
Abdomen: Soft, Non Distended, Non Tender, No Guarding, No Rebound and Other (Incisions healing well, covered in Dermabond, without erythema or drainage; old ostomy site with intermittent heaven and serosanguineous drainage, no erythema or purulent
drainage)
Skin: Warm and Dry
Wound: No Signs of Infection and No Skin Erythema
[2024-08-10 12:34] LABS: Glucose - Point of Care 100 mg/dl (70-99)
[2024-08-10 15:52] VITALS: BP 147/83
[2024-08-10] MEDS: TYLENOL 650 MG PO (16:33)
[2024-08-10 18:21] LABS: Glucose - Point of Care 90 mg/dl (70-99)
[2024-08-10] MEDS: LOVENOX 40 MG SC (18:29)
[2024-08-10] MEDS: Parenteral Nutrition, Central 1220 IV (21:14)
[2024-08-10] MEDS: ZYPREXA 15 MG PO (22:09)
[2024-08-10 23:10] VITALS: BP 157/78
[2024-08-10 23:58] LABS: Glucose - Point of Care 119 mg/dl (70-99)
[2024-08-11] MEDS: TORADOL 10 MG IV ×3 (00:15→17:04)
[2024-08-11] MEDS: DEPACON 52.5 MG IV ×3 (01:16→17:04)
[2024-08-11 05:50] LABS: Glucose - Point of Care 107 mg/dl (70-99)
[2024-08-11 06:00] VITALS: BMI 21.9
[2024-08-11] MEDS: NSS 1000 IV ×2 (06:32→21:54)
[2024-08-11 06:36] LABS: Magnesium 2.2 mg/dl (1.6-2.3); Phosphorus 3.7 mg/dl (2.5-4.5)
[2024-08-11 07:00] VITALS: BP 147/83
[2024-08-11] MEDS: SPIRIVA RESPIMAT 2.5 MCG 2 PUFF INH (07:38)
[2024-08-11] MEDS: SYMBICORT 160/4.5 MCG INHALER 2 PUFF INH ×2 (07:39→19:24)
[2024-08-11] MEDS: VENTOLIN NEBULES 2.5 MG INH (07:39)
--- NOTE | 2024-08-11 08:37 | W.PN.CRS1 ---
Today's Communication / Plan
-
GI series xray
continue tpn
Assessment/Plan
-
53-year-old female with PMH of COPD, RLS, HLD, GERD, MDD, pulmonary aspergillosis, bronchiectasis who presented for elective colostomy reversal
POD 13 robotic end colostomy reversal with small bowel resection x 2 and extensive lysis of adhesions
08/03 CT (for fever)�postoperative changes, contrast extending into the proximal jejunum
08/07 CT (for +V) � Postoperative, decrease in pneumoperitoneum, 4.5 x 2.4 cm hypodensity adjacent to small bowel anastomosis, likely representing hematoma, with proximal distention of small bowel
AFVSS, NGT 1.45 L light bilious
No labs today
�Perianastomotic hematoma likely causing partial small bowel obstruction
�Continue n.p.o. with TPN; no acute need for repeat surgery
�Explained that it can take weeks for hematoma to resolve, but hopefully partial obstruction will improve sooner than that
� Continue pain control with Tylenol, Toradol, Dilaudid as needed
� Continue DVT PPx with Lovenox
�Continue home meds
�Off antibiotics, s/p course of ertapenem postoperatively for intraoperative spillage
� OOB/IS, appreciate PT
� Appreciate hospitalist
-Given lack of bowel movements, will order a GI series xray. Oral contrast through NGT.
Subjective Data
Procedure
1) robotic colostomy takedown 2) sigmoidectomy 3) partial small bowel resection X 2 3) extensive lysis of adhesions 4) flexible sigmoidoscopy on 07/28/24
Subjective Data
Date of Service: August 11, 2024
Patient states she is hungry. She has no bowel movements yet but she has intermittent flatus. She is not crampy. Her NGT is in place. She denies nausea or vomiting.
Objective Data
-
Vital Signs
Temp Pulse Resp BP Pulse Ox
97.8 F 84 16 147/83 97
08/11/24 07:00 08/11/24 07:44 08/11/24 07:44 08/11/24 07:00 08/11/24 07:44
Intake & Output
08/10/24 08/11/24 08/12/24
06:59 06:59 06:59
Intake Total 2743 / 2743 4160 / 4160
Output Total 1750 / 1750 1450 / 1450
Balance 993 / 993 2710 / 2710
Intake:
Oral fluids 320 / 320 840 / 840
IV fluids (Total) 1920 / 1920 1760 / 1760
IV piggybacks 323 / 323 156 / 156
TPN/PPN 1224 / 1224
Amount instilled into GI Tube ( 180 / 180 180 / 180
Total)
[place] Sump 180 / 180 180 / 180
Output:
Gastrointestinal tube output ( 1750 / 1750 1450 / 1450
Total)
[place] Sump 1750 / 1750 1450 / 1450
Other:
Number of approximated MODERATE 2 2
amounts of urine
Lab Results
08/10/24 06:35
08/10/24 06:35
Physical Exam
-
General: No Acute Distress and AOx3
Abdomen: Soft, Non Distended, Non Tender and Other (Incisions healing well, covered in Dermabond, without erythema or drainage; old ostomy site with intermittent heaven and serosanguineous drainage, no erythema or purulent drainage)
Skin: Warm and Dry
[2024-08-11] MEDS: ASPIR LOW (ENTERIC COATED) 81 MG PO (08:38)
[2024-08-11] MEDS: PROTONIX IV 40 MG IV (08:38)
[2024-08-11] MEDS: PROZAC 20 MG PO (08:38)
[2024-08-11] MEDS: SYMMETREL 100 MG PO ×2 (08:38→20:02)
[2024-08-11] MEDS: MUCINEX 600 MG PO ×2 (08:38→20:02)
[2024-08-11] MEDS: BUSPAR 10 MG PO ×3 (08:38→21:21)
[2024-08-11] MEDS: NSS (PRESERVATIVE FREE) 10 ML IV (08:38)
[2024-08-11] MEDS: ATIVAN 1 MG PO ×2 (09:20→20:02)
[2024-08-11] MEDS: TYLENOL 650 MG PO (09:20)
--- NOTE | 2024-08-11 11:48 | CM ---
CM following re: discharge planning.
Reviewed pt's chart, met with pt.
Pt is POD 13 robotic end colostomy reversal with small bowel resection x 2 and extensive lysis of adhesions. Continue supportive care.
PT and OT evaluations noted - home PT/OT recommended. Pt is aware and she stated she is known to [facility] and she preferred [facility] upon the discharge.
A referral to [facility] noted.
D/C plan: home with [facility] and family support.
CM will follow with discharge plan updates as hospitalization progresses
[2024-08-11] MEDS: TORADOL IV (13:54)
[2024-08-11] MEDS: ZOFRAN 4 MG IV (15:11)
[2024-08-11 15:15] LABS: Glucose - Point of Care 111 mg/dl (70-99)
[2024-08-11 15:30] VITALS: BP 157/90
[2024-08-11] MEDS: LOVENOX 40 MG SC (17:04)
[2024-08-11 17:41] LABS: Glucose - Point of Care 102 mg/dl (70-99)
[2024-08-11] MEDS: Parenteral Nutrition, Central 1220 IV (21:18)
[2024-08-11] MEDS: ZYPREXA 15 MG PO (21:21)
[2024-08-11 23:12] LABS: Glucose - Point of Care 99 mg/dl (70-99)
[2024-08-11 23:15] VITALS: BP 155/91
[2024-08-12] MEDS: TORADOL 10 MG IV ×4 (00:11→17:20)
[2024-08-12] MEDS: DEPACON 52.5 MG IV ×3 (00:11→16:00)
[2024-08-12 05:48] LABS: % Basophils 1.1 % (0-2); % Eosinophils 4.6 % (0-6); % Immature Granulocytes 0.5 % (0-0.5); % Lymphocytes 25.6 % (20.5-51.1); % Monocytes 9.5 % (1.7-9.3); % Neutrophils 58.7 % (42.2-75.2); Absolute Basophils 0.1 10^3/uL (0-0.2); Absolute Eosinophils 0.3 10^3/uL (0-0.7); Absolute Lymphocytes 1.6 10^3/uL (1.2-3.4); Absolute Monocytes 0.6 10^3/uL (0.1-0.6); Absolute Neutrophils 3.6 10^3/uL (1.4-6.5); Hematocrit 29.2 % (37.0-47.0); Hemoglobin 9.3 g/dL (12.0-16.0); Mean Corp Hgb Conc. 31.8 g/dL (33.0-37.0); Mean Corpuscular Hgb 29.6 pg (27.0-31.0); Mean Platelet Volume 8.6 fL (7.4-10.4); Nucleated Red Blood Cells % 0 %; Platelet Count 477 10^3/uL (130-400); Red Blood Cell Count 3.14 10^6/uL (4.20-5.40); Red Cell Dist. Width 14.5 % (11.5-14.5); White Blood Cell Count 6.1 10^3/uL (4.8-10.8)
[2024-08-12 06:00] VITALS: BMI 21.5
[2024-08-12 06:01] LABS: Blood Urea Nitrogen 21 mg/dl (7-17); Carbon Dioxide 27 mmol/L (22-30); Chloride 102 mmol/L (98-107); Estimated Creatinine Clearance 100 ml/min; Glucose 100 mg/dl (70-99); Potassium 4.5 mmol/L (3.5-5.1); Sodium 136 mmol/L (135-145); eGFR > 60.00
[2024-08-12] MEDS: SPIRIVA RESPIMAT 2.5 MCG 2 PUFF INH (06:38)
[2024-08-12] MEDS: SYMBICORT 160/4.5 MCG INHALER 2 PUFF INH ×2 (06:38→20:22)
[2024-08-12 07:24] VITALS: BP 145/85
[2024-08-12 08:25] LABS: Glucose - Point of Care 105 mg/dl (70-99)
[2024-08-12] MEDS: MUCINEX 600 MG PO ×2 (08:52→20:12)
[2024-08-12] MEDS: PROZAC 20 MG PO (08:52)
[2024-08-12] MEDS: SYMMETREL 100 MG PO ×2 (08:52→20:11)
[2024-08-12] MEDS: PROTONIX IV 40 MG IV (08:52)
[2024-08-12] MEDS: ASPIR LOW (ENTERIC COATED) 81 MG PO (08:52)
[2024-08-12] MEDS: NSS (PRESERVATIVE FREE) 10 ML IV (08:52)
[2024-08-12] MEDS: BUSPAR 10 MG PO ×3 (08:52→21:26)
[2024-08-12] MEDS: ATIVAN 1 MG PO ×2 (08:57→21:25)
--- NOTE | 2024-08-12 10:09 | CM ---
Patient seen at bedside.
Pt is POD 13 robotic end colostomy reversal with small bowel resection x 2 and extensive lysis of adhesions.
Referral in [facility] for [facility], accepted-Patient known to [facility] in past
Patient with NGT, continues TPN
PT/OT rec HH
Plan: home with [facility] and family support.
--- NOTE | 2024-08-12 11:26 | W.PN.CRS1 ---
Today's Communication / Plan
-
continue tpn and ngt
xray shows contrast into the rectum
Assessment/Plan
-
53-year-old female with PMH of COPD, RLS, HLD, GERD, MDD, pulmonary aspergillosis, bronchiectasis who presented for elective colostomy reversal
POD 14 robotic end colostomy reversal with small bowel resection x 2 and extensive lysis of adhesions
08/03 CT (for fever)�postoperative changes, contrast extending into the proximal jejunum
08/07 CT (for +V) � Postoperative, decrease in pneumoperitoneum, 4.5 x 2.4 cm hypodensity adjacent to small bowel anastomosis, likely representing hematoma, with proximal distention of small bowel
AFVSS, NGT 2.3L
�Perianastomotic hematoma likely causing partial small bowel obstruction
�Continue n.p.o. with TPN; no acute need for repeat surgery
�Explained that it can take weeks for hematoma to resolve, but hopefully partial obstruction will improve sooner than that
� Continue pain control with Tylenol, Toradol, Dilaudid as needed
� Continue DVT PPx with Lovenox
�Continue home meds
�Off antibiotics, s/p course of ertapenem postoperatively for intraoperative spillage
� OOB/IS, appreciate PT
� Appreciate hospitalist
- This Am's Xray shows contrast agent throughout the colon
Subjective Data
Procedure
1) robotic colostomy takedown 2) sigmoidectomy 3) partial small bowel resection X 2 3) extensive lysis of adhesions 4) flexible sigmoidoscopy on 07/28/24
Subjective Data
Date of Service: August 12, 2024
Patient states she has no nausea or vomiting. She has mild crampy pain. She otherwise has no complaints.
Objective Data
-
Vital Signs
Temp Pulse Resp BP Pulse Ox
97.6 F 79 14 145/85 95
08/12/24 07:24 08/12/24 07:24 08/12/24 07:24 08/12/24 07:24 08/12/24 08:00
Intake & Output
08/11/24 08/12/24 08/13/24
06:59 06:59 06:59
Intake Total 4160 / 4160 2013. / 2013.5
Output Total 1450 / 1450 2350 / 2350
Balance 2710 / 2710 -335.5 / -335.5
Intake:
Oral fluids 840 / 840 240 / 240
IV fluids (Total) 1760 / 1760 960 / 960
IV piggybacks 156 / 156 52.5 / 52.5
TPN/PPN 1224 / 1224 612 / 612
Amount instilled into GI Tube ( 180 / 180 150 / 150
Total)
[place] Sump 180 / 180 150 / 150
Output:
Gastrointestinal tube output ( 1450 / 1450 2350 / 2350
Total)
[place] Sump 1450 / 1450 2350 / 2350
Other:
Number of approximated MODERATE 2 2
amounts of urine
Lab Results
08/12/24 05:14
08/12/24 05:14
Physical Exam
-
General: No Acute Distress and AOx3
Abdomen: Soft, Non Distended and Non Tender
Skin: Warm and Dry
Incision: Clear, Dry, Intact
[2024-08-12] MEDS: NSS 1000 IV (12:25)
[2024-08-12 12:32] LABS: Glucose - Point of Care 109 mg/dl (70-99)
[2024-08-12 15:18] VITALS: BP 138/85
[2024-08-12] MEDS: TYLENOL 650 MG PO (16:04)
[2024-08-12] MEDS: LOVENOX 40 MG SC (17:20)
[2024-08-12 17:25] LABS: Glucose - Point of Care 100 mg/dl (70-99)
[2024-08-12] MEDS: NSS IV (20:00)
[2024-08-12] MEDS: Parenteral Nutrition, Central 1220 IV (21:22)
[2024-08-12] MEDS: ZYPREXA 15 MG PO (21:26)
[2024-08-12 23:00] VITALS: BP 158/86
[2024-08-13 00:29] LABS: Glucose - Point of Care 114 mg/dl (70-99)
[2024-08-13] MEDS: DEPACON 52.5 MG IV ×3 (00:29→16:21)
[2024-08-13] MEDS: TORADOL 10 MG IV ×4 (00:29→17:27)
[2024-08-13 00:50] LABS: Glucose - Point of Care 112 mg/dl (70-99)
[2024-08-13] MEDS: NSS 1000 IV ×2 (02:40→17:28)
[2024-08-13 05:17] LABS: Glucose - Point of Care 103 mg/dl (70-99)
[2024-08-13 06:00] VITALS: BMI 21.7
[2024-08-13 07:11] VITALS: BP 138/80
[2024-08-13] MEDS: SYMMETREL 100 MG PO ×2 (07:59→19:55)
[2024-08-13] MEDS: ASPIR LOW (ENTERIC COATED) 81 MG PO (07:59)
[2024-08-13] MEDS: ATIVAN 1 MG PO ×3 (07:59→20:52)
[2024-08-13] MEDS: MUCINEX 600 MG PO ×2 (07:59→19:55)
[2024-08-13] MEDS: TYLENOL 650 MG PO (07:59)
[2024-08-13] MEDS: PROZAC 20 MG PO (07:59)
[2024-08-13] MEDS: BUSPAR 10 MG PO ×3 (07:59→20:53)
[2024-08-13] MEDS: NSS (PRESERVATIVE FREE) 10 ML IV (08:00)
[2024-08-13] MEDS: PROTONIX IV 40 MG IV (08:00)
[2024-08-13 08:30] LABS: Hematocrit 28.7 % (37.0-47.0); Hemoglobin 9.3 g/dL (12.0-16.0); Mean Corp Hgb Conc. 32.4 g/dL (33.0-37.0); Mean Corpuscular Hgb 29.9 pg (27.0-31.0); Mean Corpuscular Volume 92.3 fL (81.0-99.0); Mean Platelet Volume 8.5 fL (7.4-10.4); Platelet Count 464 10^3/uL (130-400); Red Blood Cell Count 3.11 10^6/uL (4.20-5.40); Red Cell Dist. Width 14.6 % (11.5-14.5)
[2024-08-13] MEDS: SYMBICORT 160/4.5 MCG INHALER 2 PUFF INH ×2 (09:05→17:54)
[2024-08-13] MEDS: SPIRIVA RESPIMAT 2.5 MCG 2 PUFF INH (09:05)
[2024-08-13 09:06] LABS: ALT (SGPT) 55 U/L (0-35); AST (SGOT) 45 U/L (14-36); Alkaline Phosphatase 112 U/L (38-126); Blood Urea Nitrogen 21 mg/dl (7-17); Calcium 8.6 mg/dl (8.4-10.2); Carbon Dioxide 27 mmol/L (22-30); Chloride 102 mmol/L (98-107); Estimated Creatinine Clearance 100 ml/min; Glucose 103 mg/dl (70-99); Potassium 4.6 mmol/L (3.5-5.1); Sodium 137 mmol/L (135-145); Total Bilirubin 0.5 mg/dl (0.2-1.3); eGFR > 60.00
--- NOTE | 2024-08-13 11:26 | W.PN.CRS1 ---
Today's Communication / Plan
-
NGT/TPN
Assessment/Plan
-
53-year-old female with PMH of COPD, RLS, HLD, GERD, MDD, pulmonary aspergillosis, bronchiectasis who presented for elective colostomy reversal
POD 15 robotic end colostomy reversal with small bowel resection x 2 and extensive lysis of adhesions
08/03 CT (for fever)�postoperative changes, contrast extending into the proximal jejunum
08/07 CT (for +V) � Postoperative, decrease in pneumoperitoneum, 4.5 x 2.4 cm hypodensity adjacent to small bowel anastomosis, likely representing hematoma, with proximal distention of small bowel. NGT placed for 2.3L
08/11/24 SBFT suggestive of proximal pSBO
08/12/24 XR abd with contrast throughout the colon
Paraanastomotic hematoma likely causing partial small bowel obstruction. Now demonstrating evidence of improvement with +BM's, NGT sill with bile tinged outputs although decreasing
Afebrile, VSS
No leukocytosis, following off ABX
�Continue NGT to suction/n.p.o.
--Renewed TPN, lytes stable
� Continue pain control with Tylenol, Toradol, Dilaudid as needed
� Continue DVT PPx with Lovenox
- PPI for GI ppx
� Continue home meds
� OOB/IS, appreciate PT
Subjective Data
Procedure
07/28/24 1) robotic colostomy takedown 2) sigmoidectomy 3) partial small bowel resection X 2 3) extensive lysis of adhesions 4) flexible sigmoidoscopy
Subjective Data
Date of Service: August 13, 2024
Patient seen and examined at bedside with Dr. Rosenthal. Denies n/v. Passing flatus. Had a BM yesterday afternoon and early this am. OOB and ambulating in hallways. Some discomfort to the left upper abdomen, similiar to previous
Objective Data
-
Vital Signs
Temp Pulse Resp BP Pulse Ox
98.1 F 79 16 138/80 97
08/13/24 07:11 08/13/24 09:06 08/13/24 09:06 08/13/24 07:11 08/13/24 09:06
Intake & Output
08/12/24 08/13/24 08/14/24
06:59 06:59 06:59
Intake Total / 2013.2231 / 2231
Output Total 2350 / 2350 1075 / 1075
Balance -335.5 / -335.5 1157 / 1157
Intake:
Oral fluids 240 / 240 480 / 480
IV fluids (Total) 960 / 960 960 / 960
IV piggybacks 52.5 / 52.5
TPN/PPN 612 / 612 612 / 612
Amount instilled into GI Tube ( 150 / 150 180 / 180
Total)
[place] Sump 150 / 150 180 / 180
Output:
Gastrointestinal tube output ( 2350 / 2350 1075 / 1075
Total)
[place] Sump 2350 / 2350 1075 / 1075
Other:
Number of approximated MODERATE 2 1
amounts of urine
How many times incontinent 4
MODERATE amount urine
Number of unmeasured liquid
stools
Rectum 1
Lab Results
08/13/24 08:11
08/13/24 08:11
Physical Exam
-
General: No Acute Distress and AOx3
Abdomen: Soft, Non Distended, Tender (mild to LUQ near umbilicus) and Other (NGT with light green outputs)
Skin: Warm and Dry
Incision: Clear, Dry, Intact
[2024-08-13 12:25] LABS: Glucose - Point of Care 105 mg/dl (70-99)
[2024-08-13 15:10] VITALS: BP 136/83
[2024-08-13] MEDS: LOVENOX 40 MG SC (17:27)
[2024-08-13 17:31] LABS: Glucose - Point of Care 96 mg/dl (70-99)
[2024-08-13] MEDS: DILAUDID 0.25 MG IV (19:55)
[2024-08-13] MEDS: Parenteral Nutrition, Central 1210 IV (20:36)
[2024-08-13] MEDS: ZYPREXA 15 MG PO (20:52)
[2024-08-13] MEDS: DESYREL 100 MG PO (20:52)
[2024-08-13 21:41] LABS: Glucose - Point of Care 99 mg/dl (70-99)
[2024-08-13 23:45] VITALS: BP 128/78
[2024-08-14] MEDS: TORADOL 10 MG IV ×2 (00:08→06:03)
[2024-08-14] MEDS: DEPACON 52.5 MG IV ×3 (00:09→17:17)
[2024-08-14 05:42] LABS: Hematocrit 26.5 % (37.0-47.0); Hemoglobin 8.6 g/dL (12.0-16.0); Mean Corp Hgb Conc. 32.5 g/dL (33.0-37.0); Mean Corpuscular Hgb 30.1 pg (27.0-31.0); Mean Corpuscular Volume 92.7 fL (81.0-99.0); Mean Platelet Volume 8.9 fL (7.4-10.4); Platelet Count 411 10^3/uL (130-400); Red Blood Cell Count 2.86 10^6/uL (4.20-5.40); Red Cell Dist. Width 14.6 % (11.5-14.5); White Blood Cell Count 4.6 10^3/uL (4.8-10.8)
[2024-08-14 05:57] LABS: ALT (SGPT) 52 U/L (0-35); AST (SGOT) 34 U/L (14-36); Albumin 2.8 g/dl (3.5-5.0); Alkaline Phosphatase 105 U/L (38-126); Blood Urea Nitrogen 25 mg/dl (7-17); Calcium 8.8 mg/dl (8.4-10.2); Carbon Dioxide 27 mmol/L (22-30); Chloride 101 mmol/L (98-107); Estimated Creatinine Clearance 100 ml/min; Glucose 102 mg/dl (70-99); Potassium 4.2 mmol/L (3.5-5.1); Sodium 136 mmol/L (135-145); Total Bilirubin 0.5 mg/dl (0.2-1.3); Total Protein 5.7 g/dl (6.3-8.2); eGFR > 60.00
[2024-08-14 07:41] VITALS: BP 131/83; BMI 21.8
[2024-08-14] MEDS: PROZAC 20 MG PO (08:28)
[2024-08-14] MEDS: BUSPAR 10 MG PO ×3 (08:28→20:53)
[2024-08-14] MEDS: NSS (PRESERVATIVE FREE) 10 ML IV (08:28)
[2024-08-14] MEDS: MUCINEX 600 MG PO ×2 (08:28→20:07)
[2024-08-14] MEDS: PROTONIX IV 40 MG IV (08:28)
[2024-08-14] MEDS: ASPIR LOW (ENTERIC COATED) 81 MG PO (08:28)
[2024-08-14] MEDS: SYMMETREL 100 MG PO ×2 (08:28→20:07)
[2024-08-14] MEDS: ATIVAN 1 MG PO ×2 (08:35→20:07)
[2024-08-14] MEDS: TYLENOL 650 MG PO ×2 (08:45→17:22)
[2024-08-14] MEDS: SPIRIVA RESPIMAT 2.5 MCG 2 PUFF INH (09:14)
[2024-08-14] MEDS: SYMBICORT 160/4.5 MCG INHALER 2 PUFF INH ×2 (09:15→19:30)
--- NOTE | 2024-08-14 11:53 | W.PN.CRS1 ---
Today's Communication / Plan
-
TPN/NPO/NGT
Assessment/Plan
-
53-year-old female with PMH of COPD, RLS, HLD, GERD, MDD, pulmonary aspergillosis, bronchiectasis who presented for elective colostomy reversal
POD 16 robotic end colostomy reversal with small bowel resection x 2 and extensive lysis of adhesions
08/03 CT (for fever)�postoperative changes, contrast extending into the proximal jejunum
08/07 CT (for +V) � Postoperative, decrease in pneumoperitoneum, 4.5 x 2.4 cm hypodensity adjacent to small bowel anastomosis, likely representing hematoma, with proximal distention of small bowel. NGT placed for 2.3L
08/11/24 SBFT suggestive of proximal pSBO consistent with prior CT findings
08/12/24 XR abd with contrast throughout the colon
Paraanastomotic hematoma likely causing partial small bowel obstruction. Now demonstrating evidence of improvement with improved exam, +BM's/flatus.
NGT sill with bile tinged outputs, high PO intake contributing to elevated outputs
Afebrile, VSS
No leukocytosis, following off ABX
H/O chronic anemia. H/H stable, slight drift today: suspect secondary to hemodilution
Plan:
�Continue NGT to suction/n.p.o.
--Renewed TPN, lytes stable
� Continue pain control with Tylenol, Dilaudid as needed. Toradol to be d/c'd today d/t length of use.
� Continue DVT PPx with Lovenox
- PPI for GI ppx
- Local wound care
� Continue home meds
� OOB/IS, appreciate PT
Subjective Data
Procedure
07/28/24 1) robotic colostomy takedown 2) sigmoidectomy 3) partial small bowel resection X 2 3) extensive lysis of adhesions 4) flexible sigmoidoscopy
Subjective Data
Date of Service: August 14, 2024
Patient seen and examined at bedside with Dr. Rosenthal. Denies n/v. Passed a BM this morning, still passing flatus but not very much.
Objective Data
-
Vital Signs
Temp Pulse Resp BP Pulse Ox
97.9 F 82 16 131/83 96
08/14/24 07:41 08/14/24 09:18 08/14/24 09:18 08/14/24 07:41 08/14/24 09:18
Intake & Output
08/13/24 08/14/24 08/15/24
06:59 06:59 06:59
Intake Total 2232 / 2232 2521 / 2521
Output Total 1075 / 1075 1550 / 1550
Balance 1157 / 1157 971 / 971
Intake:
Oral fluids 480 / 480 1020 / 1020
IV fluids (Total) 960 / 960 720 / 720
TPN/PPN 612 / 612 601 / 601
Amount instilled into GI Tube ( 180 / 180 180 / 180
Total)
[place] Sump 180 / 180 180 / 180
Output:
Gastrointestinal tube output ( 1075 / 1075 1550 / 1550
Total)
[place] Sump 1075 / 1075 1550 / 1550
Other:
Number of approximated MODERATE 1 3
amounts of urine
Number of approximated LARGE 1
amounts of urine
How many times incontinent 4
MODERATE amount urine
Number of unmeasured liquid
stools
Rectum 1 1
Lab Results
08/14/24 05:16
08/14/24 05:16
Physical Exam
-
General: No Acute Distress and AOx3
Abdomen: Soft, Non Distended, Tender (very minimal to LUQ) and Other (NGT with light green outputs)
Skin: Warm and Dry
Incision: Clear, Dry, Intact
[2024-08-14 12:00] LABS: Glucose - Point of Care 106 mg/dl (70-99)
[2024-08-14] MEDS: NSS 1000 IV (12:33)
[2024-08-14 15:19] VITALS: BP 134/67
[2024-08-14] MEDS: LOVENOX 40 MG SC (17:18)
[2024-08-14 17:58] LABS: Glucose - Point of Care 80 mg/dl (70-99)
[2024-08-14] MEDS: Parenteral Nutrition, Central 1210 IV (20:45)
[2024-08-14] MEDS: ZYPREXA 20 MG PO (20:53)
[2024-08-14] MEDS: DESYREL 100 MG PO (20:53)
[2024-08-14 23:00] VITALS: BP 119/61
[2024-08-15 00:07] LABS: Glucose - Point of Care 120 mg/dl (70-99)
[2024-08-15] MEDS: DEPACON 52.5 MG IV ×3 (00:33→16:26)
[2024-08-15 05:05] LABS: Hematocrit 27.2 % (37.0-47.0); Hemoglobin 8.7 g/dL (12.0-16.0); Mean Corpuscular Hgb 30.3 pg (27.0-31.0); Mean Corpuscular Volume 94.8 fL (81.0-99.0); Mean Platelet Volume 8.7 fL (7.4-10.4); Platelet Count 376 10^3/uL (130-400); Red Blood Cell Count 2.87 10^6/uL (4.20-5.40); Red Cell Dist. Width 14.7 % (11.5-14.5); White Blood Cell Count 4.2 10^3/uL (4.8-10.8)
[2024-08-15 05:30] LABS: ALT (SGPT) 48 U/L (0-35); AST (SGOT) 30 U/L (14-36); Albumin 2.8 g/dl (3.5-5.0); Alkaline Phosphatase 109 U/L (38-126); Blood Urea Nitrogen 23 mg/dl (7-17); Calcium 8.7 mg/dl (8.4-10.2); Carbon Dioxide 28 mmol/L (22-30); Chloride 102 mmol/L (98-107); Estimated Creatinine Clearance 100 ml/min; Glucose 93 mg/dl (70-99); Phosphorus 3.9 mg/dl (2.5-4.5); Potassium 4.2 mmol/L (3.5-5.1); Sodium 137 mmol/L (135-145); Total Bilirubin 0.4 mg/dl (0.2-1.3); Total Protein 5.8 g/dl (6.3-8.2); Triglycerides 109 mg/dl (10-149); eGFR > 60.00
[2024-08-15 05:31] LABS: Glucose - Point of Care 93 mg/dl (70-99)
[2024-08-15 06:00] VITALS: BMI 22.1
[2024-08-15] MEDS: NSS 1000 IV (06:08)
[2024-08-15 07:30] VITALS: BP 132/76
[2024-08-15] MEDS: SYMBICORT 160/4.5 MCG INHALER 2 PUFF INH ×2 (08:19→20:14)
[2024-08-15] MEDS: SPIRIVA RESPIMAT 2.5 MCG 2 PUFF INH (08:19)
[2024-08-15] MEDS: NSS (PRESERVATIVE FREE) 10 ML IV (08:20)
[2024-08-15] MEDS: PROZAC 20 MG PO (08:20)
[2024-08-15] MEDS: SYMMETREL 100 MG PO ×2 (08:20→20:21)
[2024-08-15] MEDS: PROTONIX IV 40 MG IV (08:20)
[2024-08-15] MEDS: ASPIR LOW (ENTERIC COATED) 81 MG PO (08:20)
[2024-08-15] MEDS: MUCINEX 600 MG PO ×2 (08:20→20:21)
[2024-08-15] MEDS: BUSPAR 10 MG PO ×3 (08:20→21:06)
--- NOTE | 2024-08-15 08:20 | PTCARENOTE ---
NGT clamped @08:20 (see order for 24-hour clamp trial); will continue to assess for N/V, abdominal pain or distention.
[2024-08-15 08:35] VITALS: BMI 22.1
[2024-08-15] MEDS: TYLENOL 650 MG PO ×2 (08:38→20:26)
[2024-08-15] MEDS: ATIVAN 1 MG PO ×2 (08:39→20:21)
--- NOTE | 2024-08-15 10:35 | CM ---
Per nursing notes, patient has been ambulating independently in halls and in room. Appears to be at baseline.
Plan: Case management will continue to follow and assist with discharge planning. Home with [facility] nurses when stable.
--- NOTE | 2024-08-15 10:58 | W.PN.CRS1 ---
Today's Communication / Plan
-
ngt clamp for 24 hours
tpn
Assessment/Plan
-
53-year-old female with PMH of COPD, RLS, HLD, GERD, MDD, pulmonary aspergillosis, bronchiectasis who presented for elective colostomy reversal
POD 17 robotic end colostomy reversal with small bowel resection x 2 and extensive lysis of adhesions
08/03 CT (for fever)�postoperative changes, contrast extending into the proximal jejunum
08/07 CT (for +V) � Postoperative, decrease in pneumoperitoneum, 4.5 x 2.4 cm hypodensity adjacent to small bowel anastomosis, likely representing hematoma, with proximal distention of small bowel. NGT placed for 2.3L
08/11/24 SBFT suggestive of proximal pSBO consistent with prior CT findings
08/12/24 XR abd with contrast throughout the colon
Paraanastomotic hematoma likely causing partial small bowel obstruction. Now demonstrating evidence of improvement with improved exam, +BM's/flatus.
NGT sill with bile tinged outputs, high PO intake contributing to elevated outputs
Afebrile, VSS
No leukocytosis, following off ABX
H/O chronic anemia. H/H stable, slight drift today: suspect secondary to hemodilution
Plan:
--NGT clamp trial for 24 hours (done at 8:30am). Will plan on re-evaluating on rounds tomorrow at 8am and deciding if can be removed.
--Renewed TPN, lytes stable
� Continue pain control with Tylenol, Dilaudid as needed.
� Continue DVT PPx with Lovenox
- PPI for GI ppx
- Local wound care
� Continue home meds
� OOB/IS, appreciate PT
Subjective Data
Procedure
07/28/24 1) robotic colostomy takedown 2) sigmoidectomy 3) partial small bowel resection X 2 3) extensive lysis of adhesions 4) flexible sigmoidoscopy
Subjective Data
Date of Service: August 15, 2024
Patient states she had a bowel movement yesterday and is having occasional flatus. Her pain is controlled. She denies nausea or vomiting.
Objective Data
-
Vital Signs
Temp Pulse Resp BP Pulse Ox
97.9 F 69 16 132/76 96
08/15/24 07:30 08/15/24 08:23 08/15/24 08:23 08/15/24 07:30 08/15/24 08:23
Intake & Output
08/14/24 08/15/24 08/16/24
06:59 06:59 06:59
Intake Total 2521 / 2521 2116 / 2116 52.5 / 52.5
Output Total 1550 / 1550 1100 / 1100
Balance 971 / 971 1016 / 1016 52.5 / 52.5
Intake:
Oral fluids 1020 / 1020 720 / 720
IV fluids (Total) 720 / 720 600 / 600
IV piggybacks 106 / 106 52.5 / 52.5
TPN/PPN 601 / 601 600 / 600
Amount instilled into GI Tube ( 180 / 180 90 / 90
Total)
[place] Sump 180 / 180 90 / 90
Output:
Gastrointestinal tube output ( 1550 / 1550 1100 / 1100
Total)
[place] Sump 1550 / 1550 1100 / 1100
Other:
Number of approximated MODERATE 3 1
amounts of urine
Number of approximated LARGE 1
amounts of urine
Number of unmeasured liquid
stools
Rectum 1
Lab Results
08/15/24 04:27
08/15/24 04:27
Physical Exam
-
General: No Acute Distress and AOx3
Abdomen: Soft, Non Distended and Non Tender
Skin: Warm and Dry
Incision: Clear, Dry, Intact
[2024-08-15 11:58] LABS: Glucose - Point of Care 106 mg/dl (70-99)
[2024-08-15 15:33] VITALS: BP 141/79
[2024-08-15] MEDS: LOVENOX 40 MG SC (17:30)
[2024-08-15 17:47] LABS: Glucose - Point of Care 80 mg/dl (70-99)
[2024-08-15] MEDS: Parenteral Nutrition, Central 1210 IV (21:03)
[2024-08-15] MEDS: DESYREL 100 MG PO (21:06)
[2024-08-15] MEDS: ZYPREXA 20 MG PO (21:06)
[2024-08-15 23:00] VITALS: BP 127/64
[2024-08-15 23:51] LABS: Glucose - Point of Care 108 mg/dl (70-99)
[2024-08-16] MEDS: DEPACON 52.5 MG IV ×3 (01:34→16:20)
[2024-08-16] MEDS: NSS 1000 IV ×2 (01:35→18:26)
[2024-08-16 05:47] LABS: % Basophils 1.5 % (0-2); % Eosinophils 3.6 % (0-6); % Immature Granulocytes 0.3 % (0-0.5); % Lymphocytes 42.4 % (20.5-51.1); % Monocytes 11.3 % (1.7-9.3); % Neutrophils 40.9 % (42.2-75.2); Absolute Basophils 0.1 10^3/uL (0-0.2); Absolute Eosinophils 0.1 10^3/uL (0-0.7); Absolute Lymphocytes 1.7 10^3/uL (1.2-3.4); Absolute Monocytes 0.4 10^3/uL (0.1-0.6); Absolute Neutrophils 1.6 10^3/uL (1.4-6.5); Hematocrit 25.6 % (37.0-47.0); Hemoglobin 8.3 g/dL (12.0-16.0); Mean Corp Hgb Conc. 32.4 g/dL (33.0-37.0); Mean Corpuscular Hgb 30.1 pg (27.0-31.0); Mean Corpuscular Volume 92.8 fL (81.0-99.0); Mean Platelet Volume 8.9 fL (7.4-10.4); Nucleated Red Blood Cells % 0 %; Platelet Count 332 10^3/uL (130-400); Red Blood Cell Count 2.76 10^6/uL (4.20-5.40); Red Cell Dist. Width 14.8 % (11.5-14.5); White Blood Cell Count 3.9 10^3/uL (4.8-10.8)
[2024-08-16 05:50] LABS: Blood Urea Nitrogen 19 mg/dl (7-17); Calcium 8.5 mg/dl (8.4-10.2); Carbon Dioxide 30 mmol/L (22-30); Chloride 101 mmol/L (98-107); Estimated Creatinine Clearance 100 ml/min; Glucose 93 mg/dl (70-99); Potassium 4.2 mmol/L (3.5-5.1); Sodium 138 mmol/L (135-145); eGFR > 60.00
[2024-08-16 05:52] LABS: Glucose - Point of Care 98 mg/dl (70-99)
[2024-08-16 06:00] VITALS: BMI 22.0
[2024-08-16] MEDS: SYMBICORT 160/4.5 MCG INHALER 2 PUFF INH ×2 (07:24→19:50)
[2024-08-16] MEDS: VENTOLIN NEBULES 2.5 MG INH (07:24)
[2024-08-16] MEDS: SPIRIVA RESPIMAT 2.5 MCG 2 PUFF INH (07:24)
[2024-08-16 07:35] VITALS: BP 141/74
[2024-08-16] MEDS: PROTONIX IV 40 MG IV (08:50)
[2024-08-16] MEDS: ASPIR LOW (ENTERIC COATED) 81 MG PO (08:50)
[2024-08-16] MEDS: BUSPAR 10 MG PO ×3 (08:50→20:56)
[2024-08-16] MEDS: PROZAC 20 MG PO (08:50)
[2024-08-16] MEDS: SYMMETREL 100 MG PO ×2 (08:50→20:42)
[2024-08-16] MEDS: MUCINEX 600 MG PO ×2 (08:50→20:42)
[2024-08-16] MEDS: NSS (PRESERVATIVE FREE) 10 ML IV (08:51)
--- NOTE | 2024-08-16 09:10 | W.PN.CRS1 ---
Today's Communication / Plan
-
As below
Assessment/Plan
-
53-year-old female with PMH of COPD, RLS, HLD, GERD, MDD, pulmonary aspergillosis, bronchiectasis who presented for elective colostomy reversal
POD 19 robotic end colostomy reversal with small bowel resection x 2 and extensive lysis of adhesions
08/03 CT (for fever)�postoperative changes, contrast extending into the proximal jejunum
08/07 CT (for +V) � Postoperative, decrease in pneumoperitoneum, 4.5 x 2.4 cm hypodensity adjacent to small bowel anastomosis, likely representing hematoma, with proximal distention of small bowel
1/2 SBFT - contrast remains in the upper GI tract
1/3 AXR - contrast throughout colon
AFVSS, NGT clamped 24hrs
WBC 3.9 from 4.2, Hb 8.3 from 8.7, CR 0.5
�Perianastomotic hematoma likely causing partial small bowel obstruction
�Now with bowel function and radiographic passage of contrast to colon; tolerated clamp trial
-Pull NGT and ok for clears
�Continue TPN until tolerating solids
� Continue pain control with Tylenol, Toradol, Dilaudid as needed
� Continue DVT PPx with Lovenox
�Continue home meds
�Off antibiotics, s/p course of ertapenem postoperatively for intraoperative spillage
� OOB/IS, appreciate PT
� Appreciate hospitalist
Subjective Data
Procedure
07/28/24 1) robotic colostomy takedown 2) sigmoidectomy 3) partial small bowel resection X 2 3) extensive lysis of adhesions 4) flexible sigmoidoscopy
Subjective Data
Date of Service: August 16, 2024
No overnight events.
Pain minimal, controlled.
NGT has been clamped since yesterday. No n/v. No bloating.
+flatus +BM (liquidy) +voiding
Objective Data
-
Vital Signs
Temp Pulse Resp BP Pulse Ox
98.0 F 81 18 141/74 93
08/16/24 07:35 08/16/24 07:35 08/16/24 07:35 08/16/24 07:35 08/16/24 07:35
Intake & Output
08/15/24 08/16/24 08/17/24
06:59 06:59 06:59
Intake Total 2116 / 2116 2738.0 / 2738.0
Output Total 1100 / 1100 100 / 100
Balance 1016 / 1016 2638.0 / 2638.0
Intake:
Oral fluids 720 / 720 120 / 120
IV fluids (Total) 600 / 600 1260 / 1260
IV piggybacks 106 / 106 158.0 / 158.0
TPN/PPN 600 / 600 1200 / 1200
Amount instilled into GI Tube ( 90 / 90 0 / 0
Total)
[place] Sump 90 / 90 0 / 0
Output:
Gastrointestinal tube output ( 1100 / 1100 100 / 100
Total)
[place] Sump 1100 / 1100 100 / 100
Other:
Number of approximated MODERATE 1 1
amounts of urine
Number of approximated LARGE 1
amounts of urine
Number of unmeasured liquid
stools
Rectum 1
Lab Results
08/16/24 05:12
08/16/24 05:12
Physical Exam
-
General: No Acute Distress and AOx3
HEENT: Grossly Normal
Abdomen: Soft, Non Distended, Tender (Minimally tender), No Guarding and No Rebound
Skin: Warm and Dry
Wound: No Signs of Infection, Dressing Changed and Other (Ostomy site incision healing well with intermittent haeven, no surrounding erythema or drainage; [place] drain site healing well with scab)
[2024-08-16] MEDS: TYLENOL 650 MG PO ×2 (09:12→16:24)
[2024-08-16] MEDS: ATIVAN 1 MG PO ×2 (09:12→20:55)
--- NOTE | 2024-08-16 09:54 | CM ---
Patient seen at bedside.
Pt is POD 13 robotic end colostomy reversal with small bowel resection x 2 and extensive lysis of adhesions.
NGT removed today
TPN cont
Referral in [facility] for [facility] [address]
Fax #: [phone]
[2024-08-16 12:09] LABS: Glucose - Point of Care 98 mg/dl (70-99)
[2024-08-16 15:30] VITALS: BP 146/74
[2024-08-16 16:16] VITALS: BP 146/74
[2024-08-16] MEDS: LOVENOX 40 MG SC (17:52)
[2024-08-16 18:35] LABS: Glucose - Point of Care 63 mg/dl (70-99)
[2024-08-16 19:01] LABS: Glucose - Point of Care 67 mg/dl (70-99)
[2024-08-16 19:25] LABS: Glucose - Point of Care 94 mg/dl (70-99)
--- NOTE | 2024-08-16 19:37 | PTCARENOTE ---
Pt blood sugar 94 eating her clear dinner tray @ this time, TPN infusing. Pt educated on s/s of hypoglycemia and instructed to notify staff
[2024-08-16] MEDS: Parenteral Nutrition, Central 1210 IV (20:33)
[2024-08-16] MEDS: ZYPREXA 20 MG PO (20:55)
[2024-08-16] MEDS: DESYREL 100 MG PO (20:56)
[2024-08-16 23:47] LABS: Glucose - Point of Care 98 mg/dl (70-99)
[2024-08-16 23:48] VITALS: BP 129/66
[2024-08-17] MEDS: DEPACON 52.5 MG IV ×3 (00:31→17:11)
[2024-08-17 05:51] LABS: Glucose - Point of Care 97 mg/dl (70-99)
[2024-08-17 05:52] VITALS: BMI 22.6
[2024-08-17] MEDS: SYMBICORT 160/4.5 MCG INHALER 2 PUFF INH ×2 (07:18→20:10)
[2024-08-17] MEDS: SPIRIVA RESPIMAT 2.5 MCG 2 PUFF INH (07:18)
[2024-08-17 07:30] VITALS: BP 138/78
--- NOTE | 2024-08-17 08:35 | W.PN.CRS1 ---
Today's Communication / Plan
-
As below
Assessment/Plan
-
53-year-old female with PMH of COPD, RLS, HLD, GERD, MDD, pulmonary aspergillosis, bronchiectasis who presented for elective colostomy reversal
POD 20 robotic end colostomy reversal with small bowel resection x 2 and extensive lysis of adhesions
08/03 CT (for fever)�postoperative changes, contrast extending into the proximal jejunum
08/07 CT (for +V) � Postoperative, decrease in pneumoperitoneum, 4.5 x 2.4 cm hypodensity adjacent to small bowel anastomosis, likely representing hematoma, with proximal distention of small bowel
1/2 SBFT - contrast remains in the upper GI tract
1/3 AXR - contrast throughout colon
08/16 NGT removed, started clears
AFVSS
No labs today
�Perianastomotic hematoma likely causing partial small bowel obstruction
�Now with bowel function and radiographic passage of contrast to colon
�Will advance to full liquids
�Continue TPN until tolerating solids
� Continue pain control with Tylenol, Toradol, Dilaudid as needed
� Continue DVT PPx with Lovenox
�Continue home meds
�Off antibiotics, s/p course of ertapenem postoperatively for intraoperative spillage
� OOB/IS, appreciate PT
� Appreciate hospitalist
Subjective Data
Subjective Data
Date of Service: August 17, 2024
No overnight events.
Pain controlled.
Denies nausea/vomiting. Tolerating clears.
+flatus +BMs +voiding
Pt is OOB.
Objective Data
-
Vital Signs
Temp Pulse Resp BP Pulse Ox
98.9 F 80 18 138/78 94
08/17/24 07:30 08/17/24 07:30 08/17/24 07:30 08/17/24 07:30 08/17/24 07:30
Intake & Output
08/16/24 08/17/24 08/18/24
06:59 06:59 06:59
Intake Total 2738.0 / 2738.0 3034
Output Total 100 / 100
Balance 2638.0 / 2638.0 3034
Intake:
Oral fluids 120 / 120 240 / 240
IV fluids (Total) 1260 / 1260 1440 / 1440
IV piggybacks 158.0 / 158.0 155 / 155
TPN/PPN 1200 / 1200 1200 / 1200
Amount instilled into GI Tube ( 0 / 0
Total)
[place] Sump 0 / 0
Output:
Gastrointestinal tube output ( 100 / 100
Total)
[place] Sump 100 / 100
Other:
Number of approximated SMALL 1
amounts of urine
Number of approximated MODERATE 1 2
amounts of urine
Number of approximated LARGE 1
amounts of urine
Number of unmeasured liquid
stools
Rectum 1
Lab Results
08/16/24 05:12
08/16/24 05:12
Physical Exam
-
General: No Acute Distress and AOx3
HEENT: Grossly Normal
Abdomen: Soft, Non Distended, Non Tender, No Guarding and No Rebound
Skin: Warm and Dry
Wound: No Signs of Infection, Dressing in Place (Dermabond over port incisions; gauze over ostomy closure) and No Skin Erythema
[2024-08-17] MEDS: PROZAC 20 MG PO (09:24)
[2024-08-17] MEDS: NSS (PRESERVATIVE FREE) 10 ML IV (09:24)
[2024-08-17] MEDS: BUSPAR 10 MG PO ×3 (09:24→20:30)
[2024-08-17] MEDS: SYMMETREL 100 MG PO ×2 (09:24→20:30)
[2024-08-17] MEDS: ASPIR LOW (ENTERIC COATED) 81 MG PO (09:24)
[2024-08-17] MEDS: MUCINEX 600 MG PO ×2 (09:24→20:30)
[2024-08-17] MEDS: PROTONIX IV 40 MG IV (09:25)
[2024-08-17] MEDS: TYLENOL 650 MG PO ×2 (09:46→17:27)
[2024-08-17] MEDS: ATIVAN 1 MG PO ×2 (09:46→20:30)
--- NOTE | 2024-08-17 10:18 | CM ---
Patient seen at bedside.
NGT out yesterday - Advance full liq today
Cont on TPN
[facility] referral in [facility]-accepted.
PLAN: Dischage when medically stable to home, [facility]
Fax #: [phone]
[2024-08-17 11:40] LABS: Glucose - Point of Care 115 mg/dl (70-99)
[2024-08-17] MEDS: NSS IV (14:48)
[2024-08-17 15:30] VITALS: BP 143/77
[2024-08-17] MEDS: LOVENOX 40 MG SC (17:12)
[2024-08-17 17:25] LABS: Glucose - Point of Care 89 mg/dl (70-99)
[2024-08-17] MEDS: Parenteral Nutrition, Central 1210 IV (20:50)
[2024-08-17] MEDS: DESYREL 100 MG PO (20:59)
[2024-08-17] MEDS: ZYPREXA 20 MG PO (21:00)
[2024-08-17 23:15] VITALS: BP 116/57
[2024-08-18 00:11] LABS: Glucose - Point of Care 98 mg/dl (70-99)
[2024-08-18] MEDS: DEPACON 52.5 MG IV ×3 (01:43→16:36)
[2024-08-18 05:10] LABS: % Basophils 1.4 % (0-2); % Eosinophils 5.9 % (0-6); % Immature Granulocytes 0.3 % (0-0.5); % Lymphocytes 41.1 % (20.5-51.1); % Monocytes 11.1 % (1.7-9.3); % Neutrophils 40.2 % (42.2-75.2); Absolute Basophils 0.1 10^3/uL (0-0.2); Absolute Eosinophils 0.2 10^3/uL (0-0.7); Absolute Lymphocytes 1.5 10^3/uL (1.2-3.4); Absolute Monocytes 0.4 10^3/uL (0.1-0.6); Absolute Neutrophils 1.5 10^3/uL (1.4-6.5); Hemoglobin 8.6 g/dL (12.0-16.0); Mean Corp Hgb Conc. 31.9 g/dL (33.0-37.0); Mean Corpuscular Hgb 30.2 pg (27.0-31.0); Mean Corpuscular Volume 94.7 fL (81.0-99.0); Mean Platelet Volume 9.1 fL (7.4-10.4); Nucleated Red Blood Cells % 0 %; Platelet Count 273 10^3/uL (130-400); Red Blood Cell Count 2.85 10^6/uL (4.20-5.40); White Blood Cell Count 3.7 10^3/uL (4.8-10.8)
[2024-08-18 05:40] LABS: Blood Urea Nitrogen 14 mg/dl (7-17); Calcium 8.6 mg/dl (8.4-10.2); Carbon Dioxide 31 mmol/L (22-30); Chloride 101 mmol/L (98-107); Estimated Creatinine Clearance 100 ml/min; Glucose 98 mg/dl (70-99); Potassium 4.3 mmol/L (3.5-5.1); Sodium 138 mmol/L (135-145); eGFR > 60.00
[2024-08-18 05:56] LABS: Glucose - Point of Care 103 mg/dl (70-99)
[2024-08-18 06:00] VITALS: BMI 22.5
[2024-08-18 07:36] VITALS: BP 128/68
[2024-08-18] MEDS: PROZAC 20 MG PO (08:19)
[2024-08-18] MEDS: SYMMETREL 100 MG PO ×2 (08:19→21:34)
[2024-08-18] MEDS: MUCINEX 600 MG PO ×2 (08:19→21:34)
[2024-08-18] MEDS: ASPIR LOW (ENTERIC COATED) 81 MG PO (08:19)
[2024-08-18] MEDS: BUSPAR 10 MG PO ×3 (08:19→21:37)
[2024-08-18] MEDS: NSS (PRESERVATIVE FREE) 10 ML IV (08:20)
[2024-08-18] MEDS: PROTONIX IV 40 MG IV (08:20)
[2024-08-18] MEDS: SYMBICORT 160/4.5 MCG INHALER 2 PUFF INH ×2 (08:23→20:59)
[2024-08-18] MEDS: SPIRIVA RESPIMAT 2.5 MCG 2 PUFF INH (08:23)
[2024-08-18] MEDS: ATIVAN 1 MG PO ×2 (08:33→21:59)
--- NOTE | 2024-08-18 09:14 | W.PN.CRS1 ---
Today's Communication / Plan
-
low residue
finish bag of current tpn then stop
picc out tomorrow if tolerates low residue
Assessment/Plan
-
53-year-old female with PMH of COPD, RLS, HLD, GERD, MDD, pulmonary aspergillosis, bronchiectasis who presented for elective colostomy reversal
POD 21 robotic end colostomy reversal with small bowel resection x 2 and extensive lysis of adhesions
08/03 CT (for fever)�postoperative changes, contrast extending into the proximal jejunum
08/07 CT (for +V) � Postoperative, decrease in pneumoperitoneum, 4.5 x 2.4 cm hypodensity adjacent to small bowel anastomosis, likely representing hematoma, with proximal distention of small bowel
08/11 SBFT - contrast remains in the upper GI tract
08/12 AXR - contrast throughout colon
08/16 NGT removed, started clears
08/17: fulls
AFVSS
Hgb 8.6 (8.3), WBC 3.7 (3.9)
�Perianastomotic hematoma likely causing partial small bowel obstruction
�Now with bowel function and radiographic passage of contrast to colon
�Will advance to low residue
�Allow last bag of TPN to complete today and then will stop. If tolerates low residue, plan on removing picc tomorrow.
� Continue pain control with Tylenol, Toradol, Dilaudid as needed
� Continue DVT PPx with Lovenox
�Continue home meds
�Off antibiotics, s/p course of ertapenem postoperatively for intraoperative spillage
� OOB/IS, appreciate PT
� Appreciate hospitalist
- Possible d/c as soon as tomorrow if tolerates low residue
Subjective Data
Subjective Data
Date of Service: August 18, 2024
Patient states she is 'sleepy', otherwise, she feels well. She has no nausea or vomiting. She admits to bowel movements and flatus.
Objective Data
-
Vital Signs
Temp Pulse Resp BP Pulse Ox
98.1 F 80 16 128/68 97
08/18/24 07:36 08/18/24 09:07 08/18/24 09:07 08/18/24 07:36 08/18/24 09:07
Intake & Output
08/17/24 08/18/24 08/19/24
06:59 06:59 06:59
Intake Total 3035 / 3035 2525.0 / 2525.0 62.5 / 62.5
Balance 3035 / 3035 2525.0 / 2525.0 62.5 / 62.5
Intake:
Oral fluids 240 / 240 1590 / 1590
IV fluids (Total) 1440 / 1440 120 / 120
IV piggybacks 155 / 155 215.0 / 215.0 62.5 / 62.5
TPN/PPN 1200 / 1200 600 / 600
Other:
Number of approximated SMALL 1
amounts of urine
Number of approximated MODERATE 2 2
amounts of urine
Number of approximated LARGE 1
amounts of urine
Lab Results
08/18/24 04:49
08/18/24 04:49
Physical Exam
-
General: No Acute Distress and AOx3
Abdomen: Soft, Non Distended and Non Tender
Skin: Warm and Dry
Incision: Clear, Dry, Intact
--- NOTE | 2024-08-18 11:07 | CM ---
Patient seen at bedside.
Low residue diet today
finish bag of current tpn then stop
picc out tomorrow if tolerates low residue
[facility] referral in [facility].
PLAN: Home, [facility]
Fax #: [phone]
[2024-08-18] MEDS: TYLENOL 650 MG PO (11:22)
[2024-08-18 12:11] LABS: Glucose - Point of Care 112 mg/dl (70-99)
[2024-08-18 15:31] VITALS: BP 136/69
[2024-08-18] MEDS: LOVENOX 40 MG SC (17:00)
[2024-08-18 18:01] LABS: Glucose - Point of Care 100 mg/dl (70-99)
[2024-08-18] MEDS: DILAUDID 0.25 MG IV (18:35)
[2024-08-18] MEDS: ZYPREXA 20 MG PO (21:34)
[2024-08-18] MEDS: DESYREL 100 MG PO (21:59)
[2024-08-18 23:25] VITALS: BP 102/56
[2024-08-19 00:09] LABS: Glucose - Point of Care 87 mg/dl (70-99)
[2024-08-19] MEDS: DEPACON 52.5 MG IV ×2 (01:33→08:55)
[2024-08-19 06:00] VITALS: BMI 22.5
[2024-08-19 07:00] VITALS: BP 112/66
[2024-08-19] MEDS: SYMBICORT 160/4.5 MCG INHALER 2 PUFF INH ×2 (07:45→20:09)
[2024-08-19] MEDS: SPIRIVA RESPIMAT 2.5 MCG 2 PUFF INH (07:45)
[2024-08-19] MEDS: SYMMETREL 100 MG PO ×2 (08:54→19:30)
[2024-08-19] MEDS: MUCINEX 600 MG PO ×2 (08:54→19:30)
[2024-08-19] MEDS: ASPIR LOW (ENTERIC COATED) 81 MG PO (08:54)
[2024-08-19] MEDS: PROZAC 20 MG PO (08:54)
[2024-08-19] MEDS: BUSPAR 10 MG PO ×3 (08:55→21:10)
[2024-08-19] MEDS: PROTONIX IV 40 MG IV (08:55)
[2024-08-19] MEDS: NSS (PRESERVATIVE FREE) 10 ML IV (08:55)
--- NOTE | 2024-08-19 09:55 | W.PN.CRS1 ---
Today's Communication / Plan
-
dc picc
likely d/c tomorrow
Assessment/Plan
-
53-year-old female with PMH of COPD, RLS, HLD, GERD, MDD, pulmonary aspergillosis, bronchiectasis who presented for elective colostomy reversal
POD 21 robotic end colostomy reversal with small bowel resection x 2 and extensive lysis of adhesions
08/03 CT (for fever)�postoperative changes, contrast extending into the proximal jejunum
08/07 CT (for +V) � Postoperative, decrease in pneumoperitoneum, 4.5 x 2.4 cm hypodensity adjacent to small bowel anastomosis, likely representing hematoma, with proximal distention of small bowel
1/2 SBFT - contrast remains in the upper GI tract
1/ AXR - contrast throughout colon
08/16 NGT removed, started clears
08/17: fulls
08/18: low residue
AFVSS
no labs
�Continue low residue
�No further TPN. D/C PICC today.
� Continue pain control with Tylenol, Toradol, Dilaudid as needed
� Continue DVT PPx with Lovenox
�Continue home meds
�Off antibiotics, s/p course of ertapenem postoperatively for intraoperative spillage
� OOB/IS, appreciate PT
� Appreciate hospitalist
- Possible d/c likely tomorrow with [facility], need one more day of diet before discharge
Subjective Data
Subjective Data
Date of Service: August 19, 2024
Patient states she has mild pain. She denies nausea or vomiting. She has bowel movements and flatus.
Objective Data
-
Vital Signs
Temp Pulse Resp BP Pulse Ox
98.6 F 84 16 112/66 95
08/19/24 07:00 08/19/24 07:46 08/19/24 07:46 08/19/24 07:00 08/19/24 07:46
Intake & Output
08/18/24 08/19/24 08/20/24
06:59 06:59 06:59
Intake Total 2525.0 / 2525.0 2927.5 / 2927.5
Balance 2525.0 / 2525.0 2927.5 / 2927.5
Intake:
Oral fluids 1590 / 1590 2059 / 2059
IV fluids (Total) 120 / 120 52.5 / 52.5
IV piggybacks 215.0 / 215.0 115.0 / 115.0
TPN/PPN 600 / 600 700 / 700
Other:
Number of approximated MODERATE 2 3
amounts of urine
How many times incontinent 7
MODERATE amount urine
Lab Results
08/18/24 04:49
08/18/24 04:49
Physical Exam
-
General: No Acute Distress and AOx3
Abdomen: Soft, Non Distended and Non Tender
Skin: Warm and Dry
Incision: Clear, Dry, Intact
--- NOTE | 2024-08-19 10:08 | CM ---
Patient seen at [facility].
tolerated diet
PICC to be d/c today
likely d/c tomorrow - notified Anya from [facility].
updated [facility]
PLAN: Home with [facility]
Fax #: [phone]
[2024-08-19] MEDS: TYLENOL 650 MG PO (13:36)
[2024-08-19 15:00] VITALS: BP 105/65
[2024-08-19] MEDS: DEPAKOTE (12 HR RELEASE) 250 MG PO ×2 (15:22→21:10)
[2024-08-19] MEDS: LOVENOX 40 MG SC (18:36)
[2024-08-19] MEDS: ZYPREXA 20 MG PO (21:10)
[2024-08-19] MEDS: ATIVAN 1 MG PO (21:10)
[2024-08-19] MEDS: DESYREL 100 MG PO (21:10)
[2024-08-19 23:18] VITALS: BP 120/55
[2024-08-20 06:00] VITALS: BMI 23.0
[2024-08-20 07:20] VITALS: BP 128/64
[2024-08-20] MEDS: ASPIR LOW (ENTERIC COATED) 81 MG PO (07:54)
[2024-08-20] MEDS: SYMMETREL 100 MG PO (07:54)
[2024-08-20] MEDS: DEPAKOTE (12 HR RELEASE) 250 MG PO (07:55)
[2024-08-20] MEDS: MUCINEX 600 MG PO (07:55)
[2024-08-20] MEDS: PEPCID 20 MG PO (07:55)
[2024-08-20] MEDS: PROZAC 20 MG PO (07:55)
[2024-08-20] MEDS: BUSPAR 10 MG PO (07:55)
[2024-08-20] MEDS: SYMBICORT 160/4.5 MCG INHALER 2 PUFF INH (07:58)
[2024-08-20] MEDS: SPIRIVA RESPIMAT 2.5 MCG 2 PUFF INH (07:58)
--- NOTE | 2024-08-20 09:33 | W.PN.CRS1 ---
Today's Communication / Plan
-
dispo planning
Assessment/Plan
-
53-year-old female with PMH of COPD, RLS, HLD, GERD, MDD, pulmonary aspergillosis, bronchiectasis who presented for elective colostomy reversal
POD 22 robotic end colostomy reversal with small bowel resection x 2 and extensive lysis of adhesions
08/03 CT (for fever)�postoperative changes, contrast extending into the proximal jejunum
08/07 CT (for +V) � Postoperative, decrease in pneumoperitoneum, 4.5 x 2.4 cm hypodensity adjacent to small bowel anastomosis, likely representing hematoma, with proximal distention of small bowel
1/ SBFT - contrast remains in the upper GI tract
1/ AXR - contrast throughout colon
08/16 NGT removed, started clears
08/17: fulls
08/18: low residue
08/19: picc removed
08/20 [place] removed
AFVSS
Progressing well
Continues to tolerate diet
�Continue low residue
�No further TPN. D/C PICC today.
� Continue pain control prn
� Continue DVT PPx with Lovenox
�Continue home meds
- D/C home
Subjective Data
Subjective Data
Date of Service: August 20, 2024
Patient seen and examined at bedside with Dr. Brandt. Denies n/v. Tolerating diet. Minimal discomfort. Eager to go home.
Objective Data
-
Vital Signs
Temp Pulse Resp BP Pulse Ox
98.0 F 72 16 128/64 98
08/20/24 07:20 08/20/24 07:20 08/20/24 07:20 08/20/24 07:20 08/20/24 07:20
Intake & Output
08/19/24 08/20/24 08/21/24
06:59 06:59 06:59
Intake Total 2927.5 / 2927.5 /
Balance 2927.5 / 2927.5 /
Intake:
Oral fluids 2059 / 2059 /
IV fluids (Total) 52.5 / 52.5
IV piggybacks 115.0 / 115.0
TPN/PPN 700 / 700
Other:
Number of approximated MODERATE 3 2
amounts of urine
How many times incontinent 7
MODERATE amount urine
Lab Results
08/18/24 04:49
08/18/24 04:49
Physical Exam
-
General: No Acute Distress and AOx3
Abdomen: Soft, Non Distended and Non Tender
Skin: Warm and Dry
Incision: Clear, Dry, Intact and Other ([place] removed from prior ostomy site)
--- NOTE | 2024-08-20 09:39 | W.DS.TRANS ---
Addendum entered and electronically signed by SILVIA Calderón 08/20/24 16:55:
dictated #[id number]
Original Note:
DC Summary - [employer]
-
Discharge Instructions:
Discharge Diagnosis/Procedures robotic end colostomy reversal with small bowel
resection x 2 and extensive lysis of adhesions
Diet Low Residue
Activity No strenuous activity
Additional Activity No lifting over 10lbs (gallon of milk)
Driving Restrictions Not until seen by your Dr
Bathing Restrictions OK to Shower
Wound Care Allow glue to naturally fall off. Do not pick at
incisions. Cover prior ostomy site with clean
gauze and change as daily and as needed. Ok to
shower with dressing off.
Instructions:
Stand-Alone Forms:
Changes to Home Medications: No
Discharge Medications:
DC Medications w/original date entered in [employer]
acetaminophen 500 mg tablet 1,000 mg PO Q6H PRN mild pain/fever 12/24/23
albuterol sulfate 90 mcg/actuation aerosol inhaler 2 puff inhalation R Q4 PRN sob/wheezing 12/24/23
aspirin 81 mg tablet,delayed release 81 mg PO DAILY Blood Clot Prevention/Tx 12/24/23
cholecalciferol (vitamin D3) 25 mcg (1,000 unit) tablet (Vitamin D3) 25 mcg PO DAILY Supplement 12/24/23
montelukast 10 mg tablet 10 mg PO QPM ASTHMA 12/24/23
pantoprazole 40 mg tablet,delayed release 40 mg PO DAILY Gastrointestinal Issue 12/24/23
budesonide 0.5 mg/2 mL suspension for nebulization 0.5 mg inhalation BIDPRN PRN sob 01/05/24
amantadine HCl 100 mg capsule 100 mg PO BID #0 caps 02/12/24
fluoxetine 20 mg capsule 20 mg PO DAILY #0 caps 02/12/24
levalbuterol HCl 0.63 mg/3 mL solution for nebulization 0.63 mg (3 mL) inhalation R Q6 wheezing,sob #90 mL 02/12/24
trazodone 100 mg tablet 100 mg PO HSPRN PRN sleep #3 tabs 02/12/24
Milk of Magnesia (antacid) 1 tab PO BID Gastrointestinal Issue 07/22/24
budesonide 160 mcg-glycopyr 9 mcg-formot 4.8 mcg/actuation HFA inhaler (Breztri Aerosphere) 2 inh inhalation DAILY Lung/Breathing Issues 07/22/24
buspirone 10 mg tablet 10 mg PO TID Mental Health/Anxiety 07/22/24
divalproex 250 mg tablet,delayed release (Depakote) 250 mg PO TID Neurological Condition 07/22/24
fluticasone propionate 50 mcg/actuation nasal spray,suspension 1 spray intranasal DAILY Allergies 07/22/24
guaifenesin 600 mg tablet, extended release 12 hr (Mucinex) 600 mg PO BID Cough 07/22/24
lorazepam 1 mg tablet 1 mg PO Q6H PRN anxiety 07/22/24
olanzapine 20 mg tablet (Zyprexa) 20 mg PO HS Mental Health/Anxiety 07/22/24
docusate sodium 100 mg capsule 100 mg PO BID Gastrointestinal Issue 07/29/24
ipratropium bromide 0.02 % solution for inhalation 2.5 ml inhalation QID Lung/Breathing Issues 07/29/24
melatonin 5 mg tablet 5 mg PO HS Sleep 07/29/24
oxycodone 5 mg tablet 5 mg PO Q4HPRN PRN breakthrough/severe pain #5 tabs 08/20/24
Home Medication Changes
Pending Results: No
[2024-08-20] MEDS: ATIVAN 1 MG PO (10:56)
[2024-08-20] MEDS: TYLENOL 650 MG PO (10:56)
[2024-08-20 11:51] VITALS: BP 140/70
== END 2024-08-20 12:10 | disposition home health service (06) | DRG 329 ==
LOC: 2 SOUTH 06:18
PROVIDERS: Internal Medicine; Nurse Practitioner Family; Physician Assistant; Registered Nurse; Surgery; ADMITTING PHYSICIAN Surgery; FAMILY PHYSICIAN Physician Assistant; OTHER PHYSICIAN Internal Medicine; OTHER PHYSICIAN Psychiatry & Neurology Psychiatry
PROC: 0DBN4ZZ Excision of Sigmoid Colon, Percutaneous Endoscopic Approach (ICD-10-PCS; 2024-07-28)
PROC: 0DB84ZZ Excision of Small Intestine, Percutaneous Endoscopic Approach (ICD-10-PCS; 2024-07-28)
PROC: 8E0W4CZ Robotic Assisted Procedure of Trunk Region, Percutaneous Endoscopic Approach (ICD-10-PCS; 2024-07-28)
PROC: 0DNU4ZZ Release Omentum, Percutaneous Endoscopic Approach (ICD-10-PCS; 2024-07-28)
PROC: 0DN84ZZ Release Small Intestine, Percutaneous Endoscopic Approach (ICD-10-PCS; 2024-07-28)
PROC: 3E0436Z Introduction of Nutritional Substance into Central Vein, Percutaneous Approach (ICD-10-PCS; 2024-08-08)
PROC: 02HV33Z Insertion of Infusion Device into Superior Vena Cava, Percutaneous Approach (ICD-10-PCS; 2024-08-08)
DX: Z43.3 Encounter for attention to colostomy (principal); E43 Unspecified severe protein-calorie malnutrition; F33.2 Major depressive disorder, recurrent severe without psychotic features; I50.32 Chronic diastolic (congestive) heart failure; K56.699 Other intestinal obstruction unspecified as to partial versus complete obstruction; E87.1 Hypo-osmolality and hyponatremia; K91.870 Postprocedural hematoma of a digestive system organ or structure following a digestive system procedure; K66.0 Peritoneal adhesions (postprocedural) (postinfection); K43.9 Ventral hernia without obstruction or gangrene; J44.9 Chronic obstructive pulmonary disease, unspecified; G25.81 Restless legs syndrome; E78.5 Hyperlipidemia, unspecified; I25.10 Atherosclerotic heart disease of native coronary artery without angina pectoris; K21.9 Gastro-esophageal reflux disease without esophagitis; D50.9 Iron deficiency anemia, unspecified; E87.6 Hypokalemia; J47.9 Bronchiectasis, uncomplicated; Y83.8 Other surgical procedures as the cause of abnormal reaction of the patient, or of later complication, without mention of misadventure at the time of the procedure; Z11.52 Encounter for screening for COVID-19; Z68.23 Body mass index [BMI] 23.0-23.9, adult; Z79.82 Long term (current) use of aspirin; Z79.899 Other long term (current) drug therapy
CPT/HCPCS: 88304; 88307; 36415; 71045; 74018; 74177; 74240; 74248; 80048; 80053; 81003; 82607; 82728; 82746; 82962; 83036; 83540; 83550; 83605; 83615; 83735; 84100; 84134; 84478; 85014; 85018; 85025; 85027; 85045; 85610; 85730; 86140; 86850; 86900; 86901; 87040; 87811; 93005; 94640; 97110; 97116; 97162; 97530; C1776; J1335; J2916; Q9967

== ENCOUNTER → 2024-10-05 18:57 | Outpatient (REF) | payer OTHER, SELFPAY | LOC: WDC 18:57 | PROVIDERS: ATTENDING PHYSICIAN Physician Assistant | DX: Z12.31 Encounter for screening mammogram for malignant neoplasm of breast (principal) | CPT/HCPCS: 77063; 77067 ==